=== PATIENT | male | born 1950 | race Caucasian/White ===

== ENCOUNTER → 2016-05-10 | Outpatient (CLI) | payer OTHER ==
[~2016-05-10] MED LIST: ANT25 PO; ASPEC325 PO; ASPI1TAB83 PO; ATOR-22 PO; GLC/500 PO; HYDR25TA5 PO; LOSA50TA6 PO; LPR25 PO; METFTAB PO; METO-596 PO; MGNO400 PO; MULTTAB45 PO; NAPR-1169 PO; NRV5 PO; NVLNI SC; NVLNI SQ; NVLRPUC SC; Nyquil; PHEN-905 PO; PLV75 PO; SENN8.6T7 PO
--- NOTE | 2016-05-10 11:16 | DIAGNOSTIC IMAGING REPORT ---
ULTRASOUND ART DOP LOWER EXT BILAT CLINICAL HISTORY: B/L LEG NON HEALING ULCER ischemia. Claudication. COMPARISON STUDY: None FINDINGS: Real-time as well as Doppler evaluation of the arterial structures of the lower legs was performed. Waveforms are triphasic throughout. Velocity characteristics are unremarkable. Arterial structures demonstrate unremarkable biphasic and triphasic waveforms. The following blood pressure indices were obtained. On the right, posterior tibial is 1.03 and dorsalis pedis is 1.08. On the left, posterior tibial is 1.09 and dorsalis pedis is 1.02. IMPRESSION: Normal study. No significant stenosis Electronically signed by: Joe Arellano M.D. 05/10/2016 11:15 AM Dictated Date/Time: 05/10/2016 11:13 AM
== END | disposition home or self-care (01) ==
LOC: C.ULTR 09:26
PROVIDERS: ATTEND Podiatrist Primary Podiatric Medicine
DX: L97.909 Non-pressure chronic ulcer of unspecified part of unspecified lower leg with unspecified severity (principal)

== ENCOUNTER 2016-05-21 06:56 | Inpatient (IN) | payer OTHER ==
[~2016-05-21] VITALS: Ht 175.3 cm; Wt 137.7 kg
[~2016-05-21 06:56] MED LIST changes: -ASPI1TAB83 PO; -HYDR25TA5 PO; -METFTAB PO; -METO-596 PO; -MGNO400 PO; -NRV5 PO; -NVLNI SQ; -PHEN-905 PO; -SENN8.6T7 PO
[2016-05-21] MEDS ORDERED: SODIUM CHLORIDE 0.9% 1000ML 1,000 ML IV STA (07:41)
[2016-05-21] MEDS ORDERED: SODIUM CHLORIDE 0.9% 1000ML 1,000 ML IV ONE (07:41)
[2016-05-21] MEDS ORDERED: ONDANSETRON INJ 2 MG/ML 2 ML VIAL IV STA (07:43)
--- NOTE | 2016-05-21 07:57 | EMERGENCY ROOM VISIT NOTE ---
History Report prepared by Amy: Maggi Sanchez Under the Supervision of: Dr. Sandeep Marcus M.D. First contact with patient: 07:18 Chief Complaint: VOMITING Stated Complaint: VOMITING Nursing Triage Summary: Started vomiting on Tuesday at approximately 1700 after being at his physician. Yesterday he relates that he "Laid around". Ate toast, mandarin oranges, small snack cake, half a piece of bread with peanut butter. BSG 147 this AM. Relates in the middle of the night he vomited. Denies diarrhea. Constipated on Tuesday and was able to have an adequate bm. Today he feels "bloated, crampy and pain in the lower right back" He thinks that if he had a good bowel movement he could feel better. History of Present Illness The patient is a 65 year old male who presents to the Emergency Room with complaints of persistent periumbilical abdominal pain that began Tuesday. He currently rates his discomfort as an 8/10 in severity, describing his discomfort as a cramping feeling. The patient states that he vomited on Tuesday and since then he has been feeling bloated and crampy. He states that he had a normal bowel movement on Tuesday, but states that since then he has been without a bowel movement, but denies any urge to have one. The patient states that he typically has bowel movements every morning. He additionally notes nausea. The patient states that vomiting has been alleviating his abdominal discomfort. He states that he vomited again last evening. The patient notes lower right back pain that he describes an achy pain. He states that he has experienced this discomfort in the past. The patient states that he has taken Ibuprofen with slight relief of his symptoms. He notes a history of hypertension, Type 2 diabetes, and neuropathy. The patient denies any history of abdominal surgeries. He denies any fever, chills , dysuria, increased numbness or weakness, groin pain or swelling, hematochezia , or melena. The patient notes a strong family history of aneurysms, but denies any personal history of aneurysms. Source of History: patient Onset: Tuesday Position: abdomen Symptom Intensity: 8/10 Quality: cramping Timing: other (persistent) Associated Symptoms: + back pain, + nausea, + vomiting, No chills, No fevers , No hematochezia, No melena, No numbness, No urinary symptoms, No weakness Note: Associated Symptoms: abdominal bloating, no bowel movement since Tuesday. Review of Systems See HPI for pertinent positives & negatives. A total of 10 systems reviewed and were otherwise negative. Past Medical & Surgical Medical Problems: (1) Acute renal failure (2) CKD (chronic kidney disease), stage III (3) HLD (hyperlipidemia) (4) HTN (hypertension) (5) Hypertensive urgency (6) IDDM (insulin dependent diabetes mellitus) (7) Obesity Surgical Problems: (1) H/O knee surgery (2) History of tonsillectomy (3) S/P surgical manipulation of ankle joint Old medical records were reviewed. Nurse's notes were reviewed and I agree with. Family History Diabetes mellitus Social History Smoking Status: Never Smoker Alcohol Use: none Drug Use: none Marital Status: single Housing Status: lives with roommate Occupation Status: retired Current/Historical Medications Scheduled Aspirin (Aspirin), 1 TAB PO DAILY Atorvastatin (Lipitor), 20 MG PO HS Hydrochlorothiazide (Hydrochlorothiazide), 12.5 MG PO DAILY Insulin Human NPH (Novolin N), 32 UNITS SQ BID Insulin Human Regular (Novolin R), 38 UNITS SC AC Losartan Potassium (Cozaar), 100 MG PO DAILY Metformin Ext Rel (Glucophage Ext Rel), 500 MG PO TID Metoprolol Tartrate (Lopressor), 1 TAB PO BID Multiple Vitamin (Multiple Vitamin), 1 TAB PO DAILY Scheduled PRN Xjrwfvzapfnho-Bjpahbwdnk-Kozvx (Nyquil Severe Cold/Flu 5-6.25-10-325 mg/15Ml), 15 ML PO UD PRN for cold Allergies Coded Allergies: No Known Allergies (Unverified , 10/25/13) Physical Exam Vital Signs Date Time Temp Pulse Resp B/P Pulse Ox O2 Delivery O2 Flow Rate FiO2 05/21/16 10:12 66 20 198/106 96 Room Air 05/21/16 09:38 88 Nasal Cannula 2.0 05/21/16 09:36 96 Room Air 05/21/16 09:31 66 20 184/101 94 Room Air 05/21/16 08:33 66 20 187/96 96 Room Air 05/21/16 07:05 36.9 63 18 210/94 96 Room Air Physical Exam General: Well developed well nourished non-ill appearing, obese, middle aged male in no acute distress, breathing comfortably on room air. Normal speech HEENT: Normal cephalic atraumatic. Pupils are equal round and reactive to light. Sceara anicteric. Extraocular movements are intact. Oropharynx is pink with moist mucous membranes. No swelling of the mouth lips or tongue. Neck: Supple with a midline trachea. No meningeal signs or stiffness, no JVD or bruits. No Stridor. Chest: Clear to auscultation bilaterally. No wheezes or rhonchi. No increased work of breathing. Heart: regular rate and rhythm. Abdomen: Mildly diffusely tender in the lower abdomen. No peritonitis or masses. Extremities: Bandage from right lower extremity wound. No cyanosis clubbing or edema. No calf tenderness or assymetry Spine/Back. Non tender to palpation. No CVA tenderness Skin: Good turgor without rashes. Neurologic exam: Cranial nerves two through 12 are intact. Motor and sensation are intact and symmetrical throughout. Medical Decision & Procedures ER Provider Diagnostic Interpretation: CT results as stated below per my review and radiologist interpretation: CT OF THE ABDOMEN AND PELVIS WITHOUT CONTRAST, STONE PROTOCOL CLINICAL HISTORY: Right-sided abdominal pain, vomiting and constipation. COMPARISON STUDY: None. TECHNIQUE: Helical axial images of the abdomen and pelvis were obtained without IV or oral contrast according to renal stone protocol. FINDINGS: Lung bases are clear. There is mild right perinephric and periureteral ureteral infiltration with mild dilatation of the right collecting system and ureter. No right ureteral calculus is present. There is a 4 mm calculus within the lower pole of the right kidney. There are multiple bilateral renal lesions. These are suboptimally assessed on this unenhanced exam but measure water attenuation likely reflect cysts. Unenhanced images of the liver, spleen, adrenal glands and pancreas are normal. There is no evidence for a bowel obstruction. There is left colon diverticulosis without evidence for acute diverticulitis. The appendix is normal. Skeletal structures are unremarkable for age. There is no lymphadenopathy. IMPRESSION: 1. Mild dilatation of the right ureter and collecting system with mild perinephric and ureteral infiltration. The findings raise the possibility of a recently passed calculus. An infectious process could appear similar and this could be correlated with urinalysis. 2. 4 mm right renal calculus. 3. Several bilateral renal lesions which are suboptimally assessed on this unenhanced exam. However, these measure water attenuation and likely reflect cysts. Electronically signed by: Andrew Mccollum M.D. 05/21/2016 9:11 AM Dictated Date/Time: 05/21/2016 8:58 AM Laboratory Results 05/21/16 07:55 Red Blood Count 4.33, Mean Corpuscular Volume 85.9, Mean Corpuscular Hemoglobin 30.3, Mean Corpuscular Hemoglobin Concent 35.2, Mean Platelet Volume 10.1, Neutrophils (%) (Auto) 81.3, Lymphocytes (%) (Auto) 9.9, Monocytes (%) (Auto) 7.5, Eosinophils (%) (Auto) 0.8, Basophils (%) (Auto) 0.2, Neutrophils # (Auto) 8.50, Lymphocytes # (Auto) 1.03, Monocytes # (Auto) 0.78, Eosinophils # (Auto) 0.08, Basophils # (Auto) 0.02 05/21/16 07:55 Test 05/21/16 07:55 White Blood Count 10.44 K/uL (4.8-10.8) Red Blood Count 4.33 M/uL (4.7-6.1) Hemoglobin 13.1 g/dL (14.0-18.0) Hematocrit 37.2 % (42-52) Mean Corpuscular Volume 85.9 fL (80-100) Mean Corpuscular Hemoglobin 30.3 pg (25-34) Mean Corpuscular Hemoglobin Concent 35.2 g/dl (32-36) Platelet Count 200 K/uL (130-400) Mean Platelet Volume 10.1 fL (7.4-10.4) Neutrophils (%) (Auto) 81.3 % Lymphocytes (%) (Auto) 9.9 % Monocytes (%) (Auto) 7.5 % Eosinophils (%) (Auto) 0.8 % Basophils (%) (Auto) 0.2 % Neutrophils # (Auto) 8.50 K/uL (1.4-6.5) Lymphocytes # (Auto) 1.03 K/uL (1.2-3.4) Monocytes # (Auto) 0.78 K/uL (0.11-0.59) Eosinophils # (Auto) 0.08 K/uL (0-0.5) Basophils # (Auto) 0.02 K/uL (0-0.2) RDW Standard Deviation 41.8 fL (36.4-46.3) RDW Coefficient of Variation 13.3 % (11.5-14.5) Immature Granulocyte % (Auto) 0.3 % Immature Granulocyte # (Auto) 0.03 K/uL (0.00-0.02) Prothrombin Time 10.7 SECONDS (9.0-12.0) Prothromb Time International Ratio 1.0 (0.9-1.1) Anion Gap 11.0 mmol/L (3-11) Est Creatinine Clear Calc Drug Dose 33.7 ml/min Estimated GFR () 24.1 Estimated GFR (Non- 20.8 BUN/Creatinine Ratio 14.3 (10-20) Calcium Level 9.3 mg/dl (8.5-10.1) Total Bilirubin 0.6 mg/dl (0.2-1) Direct Bilirubin 0.1 mg/dl (0-0.2) Aspartate Amino Transf (AST/SGOT) 17 U/L (15-37) Alanine Aminotransferase (ALT/SGPT) 27 U/L (12-78) Alkaline Phosphatase 116 U/L (45-117) Troponin I < 0.015 ng/ml (0-0.045) Total Protein 8.2 gm/dl (6.4-8.2) Albumin 3.5 gm/dl (3.4-5.0) Amylase Level 97 U/L (25-115) Lipase 501 U/L (73-393) Thyroid Stimulating Hormone (TSH) 2.980 uIu/ml (0.300-4.500) Laboratory studies as stated above per my review. Medications Administered Medications (Trade) Dose Ordered Sig/Ghazala Route Start Time Stop Time Status Last Admin Dose Admin Sodium Chloride (Nss 1000ml) 1,000 ml @ 999 mls/hr Q1H1M STAT IV 05/21/16 07:41 05/21/16 08:41 DC 05/21/16 08:07 999 MLS/HR Ondansetron HCl (Zofran Inj) 4 mg NOW STAT IV 05/21/16 07:43 05/21/16 07:44 DC 05/21/16 08:07 4 MG Morphine Sulfate (MoRPHine SULFATE INJ) 4 mg NOW STAT IV 05/21/16 09:12 05/21/16 09:13 DC 05/21/16 09:12 4 MG Ciprofloxacin/ Dextrose (Cipro / D5w) 400 mg NOW STAT IV 05/21/16 09:21 05/21/16 09:22 DC 05/21/16 10:30 400 MG ED Course 0721: Past medical records reviewed. The patient was evaluated in room B10, and a complete history and physical examination were performed by the medical student. 0735: Past medical records reviewed. The patient was evaluated in room B10, and a complete history and physical examination were performed. 0741: Ordered Sodium Chloride 1000 ml @ 150 mls/hr IV, Sodium Chloride 1000 ml @ 999 mls/hr IV. 0743: Ordered Zofran Inj 4 mg IV. 0912: I reevaluated the patient and he is complaining of pain. I discussed the exam findings with him and I discussed the treatment plan. He verbalized complete understanding and agreement. He will be evaluated for further treatment. Ordered Morphine sulfate 4 mg IV. 0919: I discussed the patients case with Keenan Saab PA-C. She is going to evaluate the patient for further treatment. Medical Decision Differentials include, but are not limited to; constipation, bowel obstruction, appendicitis, AAA, kidney stone, diverticulitis, infection. This patient comes in as described above. He was placed in room B 10. He's been having abdominal pain mostly lower more so on the right side. He's had a couple episodes of vomiting over the last day or so. His abdomen is mildly tender but no peritonitis. He has no significant flank tenderness. IV access was established and she was hydrated with IV normal saline. He was found to have an elevated BUN and creatinine. Creatinine is 3. The last value have here from several years ago is 1.3. I'm worried about his renal insufficiency here, it may be related to some of the meds that he is on there could be a prerenal or post renal component as well. I did a CAT scan is no evidence of bowel obstruction. He does have this possible hydronephrosis of the right kidney but no definite stone seen. It could be a passed kidney stone versus infection. Urinalysis was obtained and cultured. I did cover him with IV antibiotics and fluids and he was given morphine 4 mg IV and Zofran 4 mg IV. Given his renal insufficiency/failure as well as abdominal pain, I do think he needs to be admitted for further treatment and evaluation some this may be constipation as well. He has no surgical abdomen at this point. I did consult the [facility] Hospitalist who saw him in the ER and will admit him for these measures. Consults Time Called: 916 Consulting Physician: Keenan Saab PA-C Returned Call: [phone] I discussed the patients case with Keenan Saab PA-C. She is going to evaluate the patient for further treatment. Impression Primary Impression: Right sided abdominal pain Additional Impressions: Nephrolithiasis UTI (urinary tract infection) Renal failure Scribe Attestation The scribe's documentation has been prepared under my direction and personally reviewed by me in its entirety. I confirm that the note above accurately reflects all work, treatment, procedures, and medical decision making performed by me. Departure Information Dispostion Being Evaluated By Hospitalist Referrals Vin Dasilva M.D. (PCP) Problem Qualifiers
[2016-05-21 08:19] LABS: BASO % 0.2 %; BASO ABS # 0.02 K/uL (0-0.2); COMPLETE YES; EOS % 0.8 %; HEMATOCRIT 37.2 % (42-52); IG% 0.3 %; LYMPH % 9.9 %; LYMPH ABS # 1.03 K/uL (1.2-3.4); MEAN CELL VOLUME 85.9 fL (80-100); MEAN CORPUSCULAR HEMOGLOBIN 30.3 pg (25-34); MEAN CORPUSCULAR HGB CONC 35.2 g/dl (32-36); MEAN PLATELET VOLUME 10.1 fL (7.4-10.4); MONO % 7.5 %; NEUT % 81.3 %; PLATELET COUNT 200 K/uL (130-400); RED BLOOD COUNT 4.33 M/uL (4.7-6.1); WHITE BLOOD COUNT 10.44 K/uL (4.8-10.8)
[2016-05-21 08:44] LABS: BUN/CREATININE RATIO 14.3 (10-20); CALCIUM 9.3 mg/dl (8.5-10.1); POTASSIUM 4.7 mmol/L (3.5-5.1)
[2016-05-21] MEDS ORDERED: HYDR25TA5 PO (09:00)
[2016-05-21] MEDS ORDERED: NVLNI SQ (09:01)
[2016-05-21] MEDS ORDERED: METFTAB PO (09:02)
[2016-05-21] MEDS ORDERED: PHEN-905 PO (09:03)
[2016-05-21] MEDS ORDERED: MoRPHine SULFATE 4 MG/ML 1 ML CARP\\VIAL IV STA (09:12)
--- NOTE | 2016-05-21 09:12 | DIAGNOSTIC IMAGING REPORT ---
CT OF THE ABDOMEN AND PELVIS WITHOUT CONTRAST, STONE PROTOCOL CLINICAL HISTORY: Right-sided abdominal pain, vomiting and constipation. COMPARISON STUDY: None. TECHNIQUE: Helical axial images of the abdomen and pelvis were obtained without IV or oral contrast according to renal stone protocol. FINDINGS: Lung bases are clear. There is mild right perinephric and periureteral ureteral infiltration with mild dilatation of the right collecting system and ureter. No right ureteral calculus is present. There is a 4 mm calculus within the lower pole of the right kidney. There are multiple bilateral renal lesions. These are suboptimally assessed on this unenhanced exam but measure water attenuation likely reflect cysts. Unenhanced images of the liver, spleen, adrenal glands and pancreas are normal. There is no evidence for a bowel obstruction. There is left colon diverticulosis without evidence for acute diverticulitis. The appendix is normal. Skeletal structures are unremarkable for age. There is no lymphadenopathy. IMPRESSION: 1. Mild dilatation of the right ureter and collecting system with mild perinephric and ureteral infiltration. The findings raise the possibility of a recently passed calculus. An infectious process could appear similar and this could be correlated with urinalysis. 2. 4 mm right renal calculus. 3. Several bilateral renal lesions which are suboptimally assessed on this unenhanced exam. However, these measure water attenuation and likely reflect cysts. Electronically signed by: Andrew Mccollum M.D. 05/21/2016 9:11 AM Dictated Date/Time: 05/21/2016 8:58 AM
[2016-05-21] MEDS ORDERED: CIPROFLOXACIN 400MG / 200ML D5W IV STA (09:21)
[2016-05-21] MEDS ORDERED: ASPI1TAB83 PO (09:55)
[2016-05-21] MEDS ORDERED: METO-596 PO (09:55)
[2016-05-21] MEDS ORDERED: METOPROLOL TARTRATE 100 MG TAB PO ONE (09:57)
[2016-05-21 10:07] LABS: AMYLASE 97 U/L (25-115)
[2016-05-21] MEDS ORDERED: ONDANSETRON INJ 2 MG/ML 2 ML VIAL IV PRN (10:15)
[2016-05-21] MEDS ORDERED: DOCUSATE SODIUM/SENNA 50/8.6MG TAB PO ONE (10:15)
[2016-05-21] MEDS ORDERED: ACETAMINOPHEN 325 MG TAB PO PRN (10:15)
[2016-05-21] MEDS ORDERED: POLYETHYLENE (MIRALAX) 17 GM PACK PO PRN (10:15)
[2016-05-21] MEDS ORDERED: BISACODYL 10 MG SUPP PR PRN (10:15)
[2016-05-21] MEDS ORDERED: CLONIDINE HCL 0.1 MG TAB PO PRN (10:15)
[2016-05-21] MEDS ORDERED: GLUCOSE 40% GEL 15 GM TUBE PO PRN (10:30)
[2016-05-21] MEDS ORDERED: GLUCAGON FOR INJ 1 MG VIAL SQ PRN (10:30)
[2016-05-21] MEDS ORDERED: GLUCOSE 10 TABS/TUBE PO PRN (10:30)
[2016-05-21] MEDS ORDERED: DEXTROSE 50% 50 ML SYR IV PRN (10:30)
--- NOTE | 2016-05-21 10:30 | History and Physical ---
History & Physical Date & Time of Service: May 21, 2016 at 10:02 Chief Complaint: Vomiting Primary Care Physician: Vin Dasilva M.D. History of Present Illness Source: patient, clinic records, hospital records Patient seen and examined. 65 year old male with PMHx of IDDM, HTN, CKD stage 3 , HLD presents to the ED complaining of abdominal pain x 2 days. Patient states the pain is mostly in the lower abdomen, he describes it as crampy and rates it as a 9/10. He reports associated vomiting which makes him feel a little bit better for a short time. He reports he has been having some constipation but did have a hard BM about 30 hours ago. He reports he has been taking stool softeners and 400mg ibuprofen with minimal relief. He reports he feels bloated. He denies fevers, chills, URI symptoms, chest pain, SOB, dysuria, diarrhea, calf pain and edema. He denies sick contacts, new or unusual foods. He denies history of kidney stones. He reports he has not taken his medications in a few days. In the ED patient's BP is elevated, Crea is 3 from 2 a month ago, lipase is 500, CT A/P shows right ureteral dilation with perinephric infiltration ? infection versus recent stone passage. UA does not show signs of infection. He received Zofran, morphine, IVFs, and Cipro. He is resting comfortably. He will be admitted for further workup and treatment. Past Medical/Surgical History Medical Problems: (1) CKD (chronic kidney disease), stage III Status: Chronic (2) HLD (hyperlipidemia) Status: Chronic (3) HTN (hypertension) Status: Chronic (4) IDDM (insulin dependent diabetes mellitus) Status: Chronic (5) Obesity Status: Chronic Surgical Problems: (1) H/O knee surgery Status: Chronic (2) History of tonsillectomy Status: Chronic (3) S/P surgical manipulation of ankle joint Status: Chronic Family History Diabetes mellitus FH: heart disease Hypertension Social History Smoking Status: Never Smoker Alcohol Use: none Drug Use: none Marital Status: single Occupational Status: retired Multi-Drug Resistant Organisms History of MDRO: No Allergies Coded Allergies: No Known Allergies (Unverified , 10/25/13) Home Medications Scheduled Aspirin (Aspirin), 1 TAB PO DAILY Atorvastatin (Lipitor), 20 MG PO HS Hydrochlorothiazide (Hydrochlorothiazide), 12.5 MG PO DAILY Insulin Human NPH (Novolin N), 32 UNITS SQ BID Insulin Human Regular (Novolin R), 38 UNITS SC AC Losartan Potassium (Cozaar), 100 MG PO DAILY Metformin Ext Rel (Glucophage Ext Rel), 500 MG PO TID Metoprolol Tartrate (Lopressor), 1 TAB PO BID Multiple Vitamin (Multiple Vitamin), 1 TAB PO DAILY Scheduled PRN Ukmcuipttbfwu-Xwrhzmhlke-Yyjbi (Nyquil Severe Cold/Flu 5-6.25-10-325 mg/15Ml), 15 ML PO UD PRN for cold Review of Systems See above for pertinent positives & negatives. A total of 10 systems reviewed and were otherwise negative. Physical Exam Vital Signs Date Time Temp Pulse Resp B/P Pulse Ox O2 Delivery O2 Flow Rate FiO2 05/21/16 09:38 88 Nasal Cannula 2.0 05/21/16 09:36 96 Room Air 05/21/16 09:31 66 20 184/101 94 Room Air 05/21/16 08:33 66 20 187/96 96 Room Air 05/21/16 07:05 36.9 63 18 210/94 96 Room Air General Appearance: + pertinent finding (WD/WN 65 year old male lying in bed in NAD ) Head: normocephalic, atraumatic Eyes: PERRL, EOMI, sclerae normal ENT: hearing grossly normal, pharynx normal Neck: supple, no JVD Respiratory/Chest: chest non-tender, lungs clear, normal breath sounds, no respiratory distress, no accessory muscle use Cardiovascular: regular rate, rhythm, no edema, no gallop, no JVD, no murmur, normal peripheral pulses Abdomen/GI: normal bowel sounds, non tender, soft Back: normal inspection, no CVA tenderness, no muscle spasm Extremities/Musculoskelatal: no calf tenderness, normal capillary refill, no pedal edema, + pertinent finding (right medial aspect of first toe with diabetic ulcer, no signs of infection ) Neurologic/Psych: alert, oriented x 3, + pertinent finding (no motor or sensory deficist noted on gross exam ) Skin: normal color, warm/dry, no rash Lymphatic: no adenopathy Diagnostics Laboratory Results Results Past 24 Hours Test 05/21/16 07:55 Range/Units White Blood Count 10.44 4.8-10.8 K/uL Red Blood Count 4.33 4.7-6.1 M/uL Hemoglobin 13.1 14.0-18.0 g/dL Hematocrit 37.2 42-52 % Mean Corpuscular Volume 85.9 80-100 fL Mean Corpuscular Hemoglobin 30.3 25-34 pg Mean Corpuscular Hemoglobin Concent 35.2 32-36 g/dl Platelet Count 200 130-400 K/uL Mean Platelet Volume 10.1 7.4-10.4 fL Neutrophils (%) (Auto) 81.3 % Lymphocytes (%) (Auto) 9.9 % Monocytes (%) (Auto) 7.5 % Eosinophils (%) (Auto) 0.8 % Basophils (%) (Auto) 0.2 % Neutrophils # (Auto) 8.50 1.4-6.5 K/uL Lymphocytes # (Auto) 1.03 1.2-3.4 K/uL Monocytes # (Auto) 0.78 0.11-0.59 K/uL Eosinophils # (Auto) 0.08 0-0.5 K/uL Basophils # (Auto) 0.02 0-0.2 K/uL RDW Standard Deviation 41.8 36.4-46.3 fL RDW Coefficient of Variation 13.3 11.5-14.5 % Immature Granulocyte % (Auto) 0.3 % Immature Granulocyte # (Auto) 0.03 0.00-0.02 K/uL Sodium Level 137 136-145 mmol/L Potassium Level 4.7 3.5-5.1 mmol/L Chloride Level 102 98-107 mmol/L Carbon Dioxide Level 24 21-32 mmol/L Anion Gap 11.0 3-11 mmol/L Blood Urea Nitrogen 43 7-18 mg/dl Creatinine 3.00 0.60-1.40 mg/dl Est Creatinine Clear Calc Drug Dose 33.7 ml/min Estimated GFR () 24.1 Estimated GFR (Non- 20.8 BUN/Creatinine Ratio 14.3 10-20 Random Glucose 187 70-99 mg/dl Calcium Level 9.3 8.5-10.1 mg/dl Total Bilirubin 0.6 0.2-1 mg/dl Direct Bilirubin 0.1 0-0.2 mg/dl Aspartate Amino Transf (AST/SGOT) 17 15-37 U/L Alanine Aminotransferase (ALT/SGPT) 27 12-78 U/L Alkaline Phosphatase 116 45-117 U/L Total Protein 8.2 6.4-8.2 gm/dl Albumin 3.5 3.4-5.0 gm/dl Lipase 501 73-393 U/L Microbiology Results 05/21/16 Blood Culture, Collin Batch Pending 05/21/16 Blood Culture, Collin Batch Pending 05/21/16 Urine Culture, Received Pending Diagnostic Radiology CT A/P Per radiologist read: IMPRESSION: 1. Mild dilatation of the right ureter and collecting system with mild perinephric and ureteral infiltration. The findings raise the possibility of a recently passed calculus. An infectious process could appear similar and this could be correlated with urinalysis. 2. 4 mm right renal calculus. 3. Several bilateral renal lesions which are suboptimally assessed on this unenhanced exam. However, these measure water attenuation and likely reflect cysts. Impression Assessment and Plan 65 year old male presents to the ED complaining of abdominal pain, nausea, vomiting, constipation x 2 days ACUTE RENAL FAILURE ON CKD STAGE 3 -admit to tele -CT A/P shows right ureteral dilation with perinephric infiltration, 4mm renal stone -UA without infection -Has been taking some ibuprofen -Crea 3 from baseline of 2 -? prerenal from dehydration versus renal from NSAIDS/diuretics, versus postrenal possible stone passage -check urine studies -hold diuretics, no NSAIDs -IVF hydration -check urine studies -CBC, PRP, Mg daily ABDOMINAL PAIN/VOMITING/CONSTIPATION -CT A/P without obstruction -Lipase mildly elevated at 500 without epigastric abdominal pain -? constipation -Bowel regimen -IVFs -Zofran, morphine prn - [place] drug [place] reviewed -Clear liquid diet advance as tolerate -Trend lipase daily -Check TSH to r/o hypothyroidism induced constipation HYPERTENSIVE URGENCY -secondary to not taking his meds x 2 days -check EKG -troponin negative -give Lopressor 100mg po now then continue home BID dosing -Clonidine prn -hold losartan and HCTZ for GRIFFIN -monitor in tele DIABETIC FOOT ULCER right first toe -states he is to see ortho as an outpatient -wound culture pending -wound care nurse consult -no signs of infection IDDM -hold metformin -SSI coverage -BSG AC HS -consistent carb diet HLD -hold statin for GI upset DVT PROPHYLAXIS: Sq heparin CODE STATUS: FULL CODE per my discussion with the patient DISPO:In my clinical judgment this beneficiary meets acute admission criteria, established by [facility], that includes being hospitalized through two midnights. Patient seen in collaboration with Dr. Rogers ATTENDING ADDENDUM care coordinated with CAILIN Giles please refer to her notes for full details, I agree with her notes patient seen and examined, records reviewed by myself as well on exam, patient seen resting in bed states lower abdominal pain is improved with PRN pain medication no nausea, (+) flatus no chest pain, headache, dizziness, nausea no other symptoms VS noted and reviewed oriented x 3, not in distress, speaks in sentences with no effort nor accessory muscle use normal rate, regular rhythm, no murmurs clear breath sounds bilaterally non distended, normal bowel sounds, soft, mild lower quadrant tenderness no bipedal edema, erythema, warmth no neuro deficits K 4.7 crea 3.0 ASSESSMENT/PLAN> LOWER ABDOMINAL PAIN likely from constipation - bowel regimen ACUTE RENAL FAILURE ON CKD 3 likely pre-renal, concomitant NSAID use - IV fluids monitor crea HYPERTENSIVE URGENCY - improving other diagnoses and plan of care as per CAILIN Giles's notes John Rogers MD
[2016-05-21 11:36] LABS: PROTHROMBIN TIME (PATIENT) 10.7 SECONDS (9.0-12.0)
[2016-05-21] MEDS: MoRPHine SULFATE 2 MG/ML CARP IV PRN ×3 (11:59→18:08)
[2016-05-21 13:00] VITALS: BP_SYST 132; BP_SYST 137; BP_DIAS 74; BP_DIAS 90; PULSE 65; TEMP 36.5; O2SAT 96; Ht 175.3 cm; Wt 137.7 kg
[2016-05-21] MEDS: SODIUM CHLORIDE 0.9% 1000ML 1,000 ML IV SCH ×2 (13:19→20:15)
[2016-05-21] MEDS: INSULIN ASPART 100 UNITS/ML 3 ML PEN SC SCH ×3 (13:35→21:12)
[2016-05-21] MEDS: HEPARIN SOD 5000 UNIT/0.5 ML CARP SQ SCH ×2 (13:35→21:11)
[2016-05-21 14:55] LABS: URINE APPEARANCE CLEAR (CLEAR); URINE BILIRUBIN NEG (NEG); URINE COLOR YELLOW; URINE NITRITE NEG (NEG); URINE SPECIFIC GRAVITY 1.019 (1.000-1.030); UROBILINOGEN NEG (NEG)
[2016-05-21 14:57] LABS: MANUAL MICROSCOPIC REQUIRED? NO; REVIEW REQ? NO
[2016-05-21 15:11] VITALS: BP 127/73; PULSE 70; TEMP 36.3; O2SAT 93
[2016-05-21] MEDS: METOPROLOL TARTRATE 100 MG TAB PO SCH (17:16)
[2016-05-21] MEDS ORDERED: LACTULOSE SYRUP 30 GM/45 ML UDP PO PRN (19:00)
[2016-05-21] MEDS ORDERED: LACTULOSE SYRUP 20 GM/30 ML UDC PO PRN (19:00)
[2016-05-21] MEDS ORDERED: LACTULOSE SYRUP 30 GM/45 ML UDP PO SCH (19:00)
[2016-05-21 19:36] VITALS: BP 165/84; PULSE 72; TEMP 36.5; O2SAT 95
[2016-05-21] MEDS ORDERED: METOPROLOL TARTRATE 100 MG TAB PO SCH (21:00)
[2016-05-21] MEDS ORDERED: MoRPHine SULFATE 2 MG/ML CARP ONE (21:08)
[2016-05-21] MEDS ORDERED: TRAMADOL HCL 50 MG TAB PO PRN (21:15)
[2016-05-21] MEDS ORDERED: HYDROmorphone INJ 0.5 MG/0.5 ML SYR IV PRN (21:15)
[2016-05-21] MEDS ORDERED: OXYCODONE/ACETAMINOPHEN 5-325 TAB PO PRN (21:15)
[2016-05-21 23:17] VITALS: BP 112/70; PULSE 58; TEMP 36.7; O2SAT 92
[2016-05-22] VITALS (7 sets, daily range): BP systolic 111–153; BP diastolic 66–79; PULSE 61–80; TEMP 36.6–36.9; O2SAT 91–96
[2016-05-22] MEDS: SODIUM CHLORIDE 0.9% 1000ML 1,000 ML IV SCH ×2 (00:45→10:34)
[2016-05-22 06:43] LABS: HEMATOCRIT 30.7 % (42-52); MEAN CORPUSCULAR HEMOGLOBIN 29.1 pg (25-34); MEAN CORPUSCULAR HGB CONC 33.9 g/dl (32-36); MEAN PLATELET VOLUME 9.5 fL (7.4-10.4); PLATELET COUNT 158 K/uL (130-400); RED BLOOD COUNT 3.57 M/uL (4.7-6.1); WHITE BLOOD COUNT 6.74 K/uL (4.8-10.8)
[2016-05-22] MEDS: HEPARIN SOD 5000 UNIT/0.5 ML CARP SQ SCH ×3 (06:49→21:36)
[2016-05-22 07:15] LABS: BUN/CREATININE RATIO 15.8 (10-20); CALCIUM 8.3 mg/dl (8.5-10.1); MAGNESIUM 1.7 mg/dl (1.8-2.4)
[2016-05-22] MEDS: METOPROLOL TARTRATE 100 MG TAB PO SCH ×2 (07:58→17:57)
[2016-05-22] MEDS: ASPIRIN 81 MG ECTAB PO SCH (07:58)
[2016-05-22] MEDS: DOCUSATE SODIUM/SENNA 50/8.6MG TAB PO SCH ×2 (07:58→09:00)
[2016-05-22] MEDS: INSULIN ASPART 100 UNITS/ML 3 ML PEN SC SCH ×4 (08:00→21:37)
--- NOTE | 2016-05-22 09:24 | Progress Note ---
Medicine Progress Note Date & Time of Visit: May 22, 2016 at 09:18. Subjective resting in bed, comfortable (+) large BM last night, (+) flatus pain has resolved no urinary symptoms denies chest pain, dyspnea, dizziness, palpitations no other symptoms Objective Last 8 Hrs Date Time Temp Pulse Resp B/P Pulse Ox O2 Delivery O2 Flow Rate FiO2 05/22/16 07:50 36.6 80 20 145/72 96 Room Air 05/22/16 04:00 Room Air 05/22/16 03:35 36.8 61 18 111/66 91 Room Air Physical Exam: General- oriented x 3, not in distress, speaks in sentences with no effort Eyes- anicteric Neck- supple, no JVD, no adenopathy Lungs- clear to auscultation b/l Heart- normal rate, regular rhythm; no murmurs Abdomen- normal bowel sounds, non distended, soft, nontender Extremities- no pretibial edema, no calf tenderness Neuro- alert, oriented x 3; no gross focal deficits Skin- warm & dry Laboratory Results: Last 24 Hours Test 05/21/16 12:06 05/21/16 14:40 05/21/16 16:16 05/21/16 16:43 Bedside Glucose 215 mg/dl 195 mg/dl 170 mg/dl Urine Color YELLOW Urine Appearance CLEAR Urine pH 5.0 Urine Specific [place] 1.019 Urine Protein 3+ Urine Glucose (UA) 1+ Urine Ketones NEG Urine Occult Blood 2+ Urine Nitrite NEG Urine Bilirubin NEG Urine Urobilinogen NEG Urine Leukocyte Esterase NEG Urine WBC (Auto) 1-5 /hpf Urine RBC (Auto) 5-10 /hpf Urine Hyaline Casts (Auto) 1-5 /lpf Urine Epithelial Cells (Auto) 5-10 /lpf Urine Bacteria (Auto) NEG Urine Osmolality 576 mOms/kg Urine Random Creatinine 180.0 mg/dl Urine Random Sodium 60 mEq/L Test 05/21/16 20:36 05/22/16 06:27 05/22/16 06:30 Bedside Glucose 203 mg/dl 158 mg/dl White Blood Count 6.74 K/uL Red Blood Count 3.57 M/uL Hemoglobin 10.4 g/dL Hematocrit 30.7 % Mean Corpuscular Volume 86.0 fL Mean Corpuscular Hemoglobin 29.1 pg Mean Corpuscular Hemoglobin Concent 33.9 g/dl RDW Standard Deviation 42.2 fL RDW Coefficient of Variation 13.5 % Platelet Count 158 K/uL Mean Platelet Volume 9.5 fL Sodium Level 139 mmol/L Potassium Level 5.0 mmol/L Chloride Level 105 mmol/L Carbon Dioxide Level 24 mmol/L Anion Gap 10.0 mmol/L Blood Urea Nitrogen 47 mg/dl Creatinine 3.00 mg/dl Est Creatinine Clear Calc Drug Dose 33.9 ml/min Estimated GFR () 24.1 Estimated GFR (Non- 20.8 BUN/Creatinine Ratio 15.8 Random Glucose 168 mg/dl Calcium Level 8.3 mg/dl Magnesium Level 1.7 mg/dl Lipase 271 U/L Date/Time Source Procedure Growth Status 05/21/16 10:05 Blood Blood Culture Pending Received 05/21/16 10:00 Blood Blood Culture Pending Received 05/21/16 17:23 Ulcer Toe Right 1 Gram Stain - Final Resulted 2 17:23 Ulcer Toe Right 1 Wound Culture Pending Resulted Assessment & Plan 65 year old male presents to the ED complaining of abdominal pain, nausea, vomiting, constipation x 2 days ABDOMINAL PAIN/VOMITING secondary to CONSTIPATION -CT A/P without obstruction -Lipase mildly elevated at 500 without epigastric abdominal pain -- BM with Lactulose and Senokot S -- Lipase normal TSH normal -- advance diet today ACUTE RENAL FAILURE ON CKD STAGE 3 -CT A/P shows right ureteral dilation with perinephric infiltration, 4mm renal stone -Has been taking some ibuprofen -Crea 3 from baseline of 2 - prerenal from dehydration versus renal from NSAIDS/diuretics, versus postrenal possible stone passage -- crea still at 3 continue IV fluids consult Nephrology HYPERTENSIVE URGENCY , resolved -secondary to not taking his meds x 2 days -check EKG: sinus rhythm with 1st deg av block -troponin negative - continue metoprolol -hold losartan and HCTZ for GRIFFIN DIABETIC FOOT ULCER right first toe -wound culture pending -wound care nurse consult -no signs of infection - has ortho ff up IDDM -hold metformin -SSI coverage -BSG AC HS -consistent carb diet HLD -hold statin for GI upset DVT PROPHYLAXIS: Sq heparin CODE STATUS: FULL CODE DISPO: pending anticipate d/c home when medically stable Current Inpatient Medications: Current Inpatient Medications Medications (Trade) Dose Ordered Sig/Ghazala Route Start Time Stop Time Status Last Admin Dose Admin Heparin Sodium (Porcine) (Heparin Sq 5000 Unit/0.5ml) 5,000 unit Q8 SQ 05/21/16 14:00 06/20/16 13:59 05/22/16 06:49 5,000 UNIT Acetaminophen (Tylenol Tab) 650 mg Q4H PRN PO 05/21/16 10:15 06/20/16 10:14 05/21/16 20:23 650 MG Ondansetron HCl (Zofran Inj) 4 mg Q6H PRN IV 05/21/16 10:15 06/20/16 10:14 Polyethylene (Miralax Powder Packet) 17 gm DAILY PRN PO 05/21/16 10:15 06/20/16 10:14 Clonidine HCl (Catapres Tab) 0.1 mg Q6H PRN PO 05/21/16 10:15 06/20/16 10:14 Senna/Docusate Sodium (Senokot S Tab) 1 tab QAM PO 05/22/16 09:00 06/21/16 08:59 05/22/16 07:58 1 TAB Bisacodyl 10 mg [address] 05/21/16 10:15 06/20/16 10:14 Sodium Chloride (Nss 1000ml) 1,000 ml @ 100 mls/hr Q10H IV 05/21/16 10:30 06/20/16 10:29 05/22/16 00:45 100 MLS/HR Aspirin (Ecotrin Tab) 81 mg DAILY PO 05/22/16 09:00 06/21/16 08:59 05/22/16 07:58 81 MG Insulin Aspart (novoLOG ASPART) SLIDING SCALE If C... ACHS SC 05/21/16 11:00 06/20/16 10:59 05/22/16 08:00 5 UNITS Glucose (Glucose 40% Gel) 15-30 GRAMS 15 GRAMS... UD PRN PO 05/21/16 10:30 06/20/16 10:29 Glucose (Glucose Chew Tab) 4-8 Tablets 4 Tabl... UD PRN PO 05/21/16 10:30 06/20/16 10:29 Dextrose (Dextrose 50% 50ML Syringe) 25-50ML OF 50% DW IV FOR... UD PRN IV 05/21/16 10:30 06/20/16 10:29 Glucagon (Glucagon Inj) 1 mg UD PRN SQ 05/21/16 10:30 06/20/16 10:29 Metoprolol Tartrate (Lopressor Tab) 100 mg BID17 PO 05/21/16 17:00 06/20/16 16:59 05/22/16 07:58 100 MG Lactulose (Chronulac Syrup) 30 gm TID PRN PO 05/21/16 19:00 06/20/16 18:59 Hydromorphone HCl (Dilaudid Inj) 0.5 mg Q3H PRN IV 05/21/16 21:15 06/04/16 21:14 Tramadol HCl (Ultram Tab) not relieved by tylenol @ Q6H PRN PO 05/21/16 21:15 06/20/16 21:14 Oxycodone/ Acetaminophen (Percocet 5-325mg Tab) 1 tab Q6H PRN PO 05/21/16 21:15 06/04/16 21:14
--- NOTE | 2016-05-22 19:03 | Nephrology Consultation ---
Nephrology Consultation Date of Consultation: May 22, 2016. Attending Physician: Dr Rogers Requesting Physician: Dr Rogers Reason for Consultation: GRIFFIN on CKD History of Present Illness 65 year old male w/ progressive ckd most recent creatinine 2.0, dm, obesity, htn , past TIA, R rotator cuff tear, psoriasis, HL remotely admitted w/ GRIFFIN on CKD3 on 05/21 after apparently passing a kidney stone recently. Denies prior hx of nephrolithiasis. He developed bilious emesis on 05/19 after his midday meal w/ marked constipation. He then ate a small amount and work again w/ increased abdominal discomfort and emesis. He took 2 doses of ibuprofen prior to presenting; generally takes this about 2X monthly for shoulder pain. He presented w/ emesis and abdominal pain to ED yesterday and noted to have creatinine of 3; no voiding sx whatsoever including no sx of retained urine. CT showed R ureteral dilatation and perinephric stranding but no stone. He takes hctz, arb, metformin as outpt; these were all held on presentation. Also had HTN urgency on presentation w/ bp 200/90; bp have since improved. Does not follow w/ nephro as outpt. Past Medical/Surgical History Medical Problems: (1) Nephrolithiasis Status: Acute (2) Renal failure Status: Acute (3) Right sided abdominal pain Status: Acute (4) UTI (urinary tract infection) Status: Acute Family History Diabetes mellitus FH: heart disease Hypertension Social History Smoking Status: Never Smoker Alcohol Use: none Drug Use: none Marital Status: single Housing Status: lives with roommate Occupation Status: retired Allergies Coded Allergies: No Known Allergies (Unverified , 10/25/13) Medications Current Inpatient Medications Medications (Trade) Dose Ordered Sig/Ghazala Route Start Time Stop Time Status Last Admin Dose Admin Heparin Sodium (Porcine) (Heparin Sq 5000 Unit/0.5ml) 5,000 unit Q8 SQ 05/21/16 14:00 06/20/16 13:59 05/22/16 13:28 5,000 UNIT Acetaminophen (Tylenol Tab) 650 mg Q4H PRN PO 05/21/16 10:15 06/20/16 10:14 05/21/16 20:23 650 MG Ondansetron HCl (Zofran Inj) 4 mg Q6H PRN IV 05/21/16 10:15 06/20/16 10:14 Polyethylene (Miralax Powder Packet) 17 gm DAILY PRN PO 05/21/16 10:15 06/20/16 10:14 Clonidine HCl (Catapres Tab) 0.1 mg Q6H PRN PO 05/21/16 10:15 06/20/16 10:14 Senna/Docusate Sodium (Senokot S Tab) 1 tab QAM PO 05/22/16 09:00 06/21/16 08:59 Bisacodyl 10 mg 10 mg DAILY PRN CA 05/21/16 10:15 06/20/16 10:14 Sodium Chloride (Nss 1000ml) 1,000 ml @ 100 mls/hr Q10H IV 05/21/16 10:30 06/20/16 10:29 05/22/16 10:34 100 MLS/HR Aspirin (Ecotrin Tab) 81 mg DAILY PO 05/22/16 09:00 06/21/16 08:59 05/22/16 07:58 81 MG Insulin Aspart (novoLOG ASPART) SLIDING SCALE If C... ACHS SC 05/21/16 11:00 06/20/16 10:59 05/22/16 18:00 5 UNITS Glucose (Glucose 40% Gel) 15-30 GRAMS 15 GRAMS... UD PRN PO 05/21/16 10:30 06/20/16 10:29 Glucose (Glucose Chew Tab) 4-8 Tablets 4 Tabl... UD PRN PO 05/21/16 10:30 06/20/16 10:29 Dextrose (Dextrose 50% 50ML Syringe) 25-50ML OF 50% DW IV FOR... UD PRN IV 05/21/16 10:30 06/20/16 10:29 Glucagon (Glucagon Inj) 1 mg UD PRN SQ 05/21/16 10:30 06/20/16 10:29 Metoprolol Tartrate (Lopressor Tab) 100 mg BID17 PO 05/21/16 17:00 06/20/16 16:59 05/22/16 17:57 100 MG Lactulose (Chronulac Syrup) 30 gm TID PRN PO 05/21/16 19:00 06/20/16 18:59 Hydromorphone HCl (Dilaudid Inj) 0.5 mg Q3H PRN IV 05/21/16 21:15 06/04/16 21:14 Tramadol HCl (Ultram Tab) not relieved by tylenol @ Q6H PRN PO 05/21/16 21:15 06/20/16 21:14 Oxycodone/ Acetaminophen (Percocet 5-325mg Tab) 1 tab Q6H PRN PO 05/21/16 21:15 06/04/16 21:14 Home Meds and Scripts Medications Dose Route/Sig Max Daily Dose Days Date Category Lopressor (Metoprolol Tartrate) 100 Mg Tab 1 Tab PO BID 30 05/21/16 Reported Aspirin 81 Mg Tab 1 Tab PO DAILY 30 05/21/16 Reported Nyquil Severe Cold/Flu 5-6.25-10-325 mg/15Ml (Uydtkiisfqimo-Qeeoqogwii-Nseik) 1 Liq Liq 15 Ml PO UD PRN 05/21/16 Reported Glucophage Ext Rel (Metformin HCl) 500 Mg Tab 500 Mg PO TID 05/21/16 Reported Novolin N (Insulin Human NPH) 100 Units/Ml Susp 32 Units SQ BID 05/21/16 Reported Hydrochlorothiazide 25 Mg Tab 12.5 Mg PO DAILY 05/21/16 Reported Multiple Vitamin 1 Tab Tab 1 Tab PO DAILY 10/25/13 Reported Lipitor (Atorvastatin Calcium) 20 Mg Tab 20 Mg PO HS 10/25/13 Reported Novolin R (Insulin Human Regular) 100 Units/1 Ml Inj 38 Units SC AC 10/25/13 Reported Cozaar (Losartan Potassium) 50 Mg Tab 100 Mg PO DAILY 10/25/13 Reported Review of Systems Constitutional: No fatigue, No fever, No weakness, No weight loss Eyes: No worsening of vision ENT: + tinnitus (chronic stable) Respiratory: No dyspnea at rest, No dyspnea on exertion, No shortness of breath Cardiac: No chest pain, No edema, No orthopnea Abdomen: + problem reported (pt states that at baseline he has chronic diarrhea attributed to metformin), + see HPI Musculoskeletal: No joint pain, No muscle pain Male : No dysuria, No hematuria Neuro: + balance problems (chronic stable from neuropathy), + numbness/tingling (chronic stable from neuropathy) Psych: No anxiety, No depression symptoms Heme: No abnormal bleeding/bruising Endo: No fatigue Skin: No itch, No rash Physical Exam Date Time Temp Pulse Resp B/P Pulse Ox O2 Delivery O2 Flow Rate FiO2 05/22/16 15:35 Room Air 05/22/16 15:14 36.9 66 18 131/74 92 Room Air 05/22/16 11:22 36.7 61 18 136/79 91 Nasal Cannula 05/22/16 10:05 36.6 80 20 96 05/22/16 08:00 Room Air 05/22/16 07:50 36.6 80 20 145/72 96 Room Air 05/22/16 04:00 Room Air 05/22/16 03:35 36.8 61 18 111/66 91 Room Air 05/22/16 00:00 Room Air 05/21/16 23:17 36.7 58 22 112/70 92 Room Air 05/21/16 20:00 Room Air 05/21/16 19:36 36.5 72 18 165/84 95 Room Air 24-Hour Column 05/22/16 07:59 Intake Total 3738 ml Balance 3738 ml Diagnostics Last 24 Hours Test 05/21/16 20:36 05/22/16 06:27 05/22/16 06:30 05/22/16 11:31 Bedside Glucose 203 mg/dl 158 mg/dl 183 mg/dl White Blood Count 6.74 K/uL Red Blood Count 3.57 M/uL Hemoglobin 10.4 g/dL Hematocrit 30.7 % Mean Corpuscular Volume 86.0 fL Mean Corpuscular Hemoglobin 29.1 pg Mean Corpuscular Hemoglobin Concent 33.9 g/dl RDW Standard Deviation 42.2 fL RDW Coefficient of Variation 13.5 % Platelet Count 158 K/uL Mean Platelet Volume 9.5 fL Sodium Level 139 mmol/L Potassium Level 5.0 mmol/L Chloride Level 105 mmol/L Carbon Dioxide Level 24 mmol/L Anion Gap 10.0 mmol/L Blood Urea Nitrogen 47 mg/dl Creatinine 3.00 mg/dl Est Creatinine Clear Calc Drug Dose 33.9 ml/min Estimated GFR () 24.1 Estimated GFR (Non- 20.8 BUN/Creatinine Ratio 15.8 Random Glucose 168 mg/dl Calcium Level 8.3 mg/dl Magnesium Level 1.7 mg/dl Lipase 271 U/L Test 05/22/16 16:19 Bedside Glucose 176 mg/dl Diagnostic Radiology: CT R ureteral dilatation/ perinephric stranding. Assessment & Plan 65 y/o M w/ dm, ckd 3, htn admitted w/ abd pain and griffin on ckd after apparently passing a kidney stone. HTN has improved/ normalized since presentation. Acute on chronic renal failure stage 3 not oliguric and no improvement so far but not worsening either and w/ acceptable chemistries; meds appropriately held. urine sediment remarkable for blood, protein, glucose. reasonable to continue straining urine. blood cultures are pending but at this point bacteremia in setting of no uti is unlikely -no uti -continue conservative management; no indication for dialysis -tolerating NS at 100 mL hourly and would continue provided normotensive and not dyspneic -advised him to aim for at least 80 oz daily water intake and to minimize sugary beverages -cont to hold ARB, diuretic, metformin and above all nsaids -advised to avoid all nsaids after d/c -daily bmp -strict I/O -needs to est after d/c w/ renal Appreciate consult; will follow with you.
[2016-05-23] MEDS: SODIUM CHLORIDE 0.9% 1000ML 1,000 ML IV SCH ×2 (01:19→12:48)
[2016-05-23] MEDS: HEPARIN SOD 5000 UNIT/0.5 ML CARP SQ SCH ×3 (06:00→21:22)
[2016-05-23 07:16] VITALS: BP 153/83; PULSE 66; TEMP 36.6; O2SAT 93
[2016-05-23 08:04] LABS: BASO % 0.7 %; BASO ABS # 0.03 K/uL (0-0.2); COMPLETE YES; EOS % 6.8 %; HEMATOCRIT 30.9 % (42-52); IG% 0.2 %; LYMPH % 36.1 %; LYMPH ABS # 1.65 K/uL (1.2-3.4); MEAN CELL VOLUME 86.6 fL (80-100); MEAN CORPUSCULAR HEMOGLOBIN 29.4 pg (25-34); MEAN PLATELET VOLUME 9.8 fL (7.4-10.4); MONO % 14.4 %; NEUT % 41.8 %; PLATELET COUNT 157 K/uL (130-400); RED BLOOD COUNT 3.57 M/uL (4.7-6.1); WHITE BLOOD COUNT 4.57 K/uL (4.8-10.8)
[2016-05-23 08:29] LABS: BUN/CREATININE RATIO 21.6 (10-20); CALCIUM 7.8 mg/dl (8.5-10.1); CREATININE 2.3 mg/dl (0.60-1.40); MAGNESIUM 1.7 mg/dl (1.8-2.4); POTASSIUM 4.3 mmol/L (3.5-5.1)
[2016-05-23] MEDS: INSULIN ASPART 100 UNITS/ML 3 ML PEN SC SCH ×4 (09:16→21:22)
[2016-05-23] MEDS: ASPIRIN 81 MG ECTAB PO SCH (09:19)
[2016-05-23] MEDS: METOPROLOL TARTRATE 100 MG TAB PO SCH ×2 (09:19→17:01)
[2016-05-23] MEDS: DOCUSATE SODIUM/SENNA 50/8.6MG TAB PO SCH ×2 (09:20→12:50)
[2016-05-23] MEDS ORDERED: COUGH DROP (SUGAR FREE) LOZ 24 LOZ/1 BOX ONE (09:48)
--- NOTE | 2016-05-23 11:47 | Nephrology Progress Note ---
Nephrology Progress Note Date of Service: May 23, 2016. Subjective up in chair/ no dyspnea, poor po, chest discomfort. voiding often and lots; bowels regulated to acceptable level for him Objective Date Time Temp Pulse Resp B/P Pulse Ox O2 Delivery O2 Flow Rate FiO2 05/23/16 07:16 36.6 66 20 153/83 93 Room Air 05/23/16 00:00 Room Air 05/22/16 23:26 36.7 65 18 153/79 93 Room Air 05/22/16 17:55 73 132/77 05/22/16 15:35 Room Air 05/22/16 15:14 36.9 66 18 131/74 92 Room Air Physical Exam: General-on ra up in chairnad Eyes-eomi ENT-mmm Neck-supple Lungs-diminished bu tclear Heart-rrr 2+ pedal edema Abdomen-soft NT + BS no lincoln Extremities-no c/c Neuro-madera, fluent speech Current Inpatient Medications Medications (Trade) Dose Ordered Sig/Ghazala Route Start Time Stop Time Status Last Admin Dose Admin Heparin Sodium (Porcine) (Heparin Sq 5000 Unit/0.5ml) 5,000 unit Q8 SQ 05/21/16 14:00 06/20/16 13:59 05/22/16 21:36 5,000 UNIT Acetaminophen (Tylenol Tab) 650 mg Q4H PRN PO 05/21/16 10:15 06/20/16 10:14 05/21/16 20:23 650 MG Ondansetron HCl (Zofran Inj) 4 mg Q6H PRN IV 05/21/16 10:15 06/20/16 10:14 Polyethylene (Miralax Powder Packet) 17 gm DAILY PRN PO 05/21/16 10:15 06/20/16 10:14 Clonidine HCl (Catapres Tab) 0.1 mg Q6H PRN PO 05/21/16 10:15 06/20/16 10:14 Senna/Docusate Sodium (Senokot S Tab) 1 tab QAM PO 05/22/16 09:00 06/21/16 08:59 Bisacodyl 10 mg 10 mg DAILY PRN [place] 05/21/16 10:15 06/20/16 10:14 Sodium Chloride (Nss 1000ml) 1,000 ml @ 100 mls/hr Q10H IV 05/21/16 10:30 06/20/16 10:29 05/23/16 01:19 100 MLS/HR Aspirin (Ecotrin Tab) 81 mg DAILY PO 05/22/16 09:00 06/21/16 08:59 05/23/16 09:19 81 MG Insulin Aspart (novoLOG ASPART) SLIDING SCALE If C... ACHS SC 05/21/16 11:00 06/20/16 10:59 05/23/16 09:16 5 UNITS Glucose (Glucose 40% Gel) 15-30 GRAMS 15 GRAMS... UD PRN PO 05/21/16 10:30 06/20/16 10:29 Glucose (Glucose Chew Tab) 4-8 Tablets 4 Tabl... UD PRN PO 05/21/16 10:30 06/20/16 10:29 Dextrose (Dextrose 50% 50ML Syringe) 25-50ML OF 50% DW IV FOR... UD PRN IV 05/21/16 10:30 06/20/16 10:29 Glucagon (Glucagon Inj) 1 mg UD PRN SQ 05/21/16 10:30 06/20/16 10:29 Metoprolol Tartrate (Lopressor Tab) 100 mg BID17 PO 05/21/16 17:00 06/20/16 16:59 05/23/16 09:19 100 MG Lactulose (Chronulac Syrup) 30 gm TID PRN PO 05/21/16 19:00 06/20/16 18:59 Hydromorphone HCl (Dilaudid Inj) 0.5 mg Q3H PRN IV 05/21/16 21:15 06/04/16 21:14 Tramadol HCl (Ultram Tab) not relieved by tylenol @ Q6H PRN PO 05/21/16 21:15 06/20/16 21:14 Oxycodone/ Acetaminophen (Percocet 5-325mg Tab) 1 tab Q6H PRN PO 05/21/16 21:15 06/04/16 21:14 Last 24 Hours Test 05/22/16 16:19 05/22/16 19:58 05/23/16 07:28 05/23/16 07:55 Bedside Glucose 176 mg/dl 163 mg/dl 150 mg/dl White Blood Count 4.57 K/uL Red Blood Count 3.57 M/uL Hemoglobin 10.5 g/dL Hematocrit 30.9 % Mean Corpuscular Volume 86.6 fL Mean Corpuscular Hemoglobin 29.4 pg Mean Corpuscular Hemoglobin Concent 34.0 g/dl Platelet Count 157 K/uL Mean Platelet Volume 9.8 fL Neutrophils (%) (Auto) 41.8 % Lymphocytes (%) (Auto) 36.1 % Monocytes (%) (Auto) 14.4 % Eosinophils (%) (Auto) 6.8 % Basophils (%) (Auto) 0.7 % Neutrophils # (Auto) 1.91 K/uL Lymphocytes # (Auto) 1.65 K/uL Monocytes # (Auto) 0.66 K/uL Eosinophils # (Auto) 0.31 K/uL Basophils # (Auto) 0.03 K/uL RDW Standard Deviation 42.5 fL RDW Coefficient of Variation 13.4 % Immature Granulocyte % (Auto) 0.2 % Immature Granulocyte # (Auto) 0.01 K/uL Sodium Level 139 mmol/L Potassium Level 4.3 mmol/L Chloride Level 107 mmol/L Carbon Dioxide Level 22 mmol/L Anion Gap 10.0 mmol/L Blood Urea Nitrogen 50 mg/dl Creatinine 2.30 mg/dl Est Creatinine Clear Calc Drug Dose 44.2 ml/min Estimated GFR () 33.3 Estimated GFR (Non- 28.7 BUN/Creatinine Ratio 21.6 Random Glucose 155 mg/dl Calcium Level 7.8 mg/dl Magnesium Level 1.7 mg/dl Assessment & Plan 65 y/o M w/ dm, ckd 3, htn admitted w/ abd pain and tom on ckd after apparently passing a kidney stone. HTN has improved/ normalized since presentation. Acute on chronic renal failure stage 3 w/ recent first episode of nephrolithiasis not oliguric and no improvement so far but not worsening either and w/ acceptable chemistries; meds appropriately held. urine sediment remarkable for blood, protein, glucose. reasonable to continue straining urine. blood cultures are pending but at this point bacteremia in setting of no uti is unlikely -no uti -continue conservative management; no indication for dialysis -tolerating NS at 100 mL hourly and would continue until this evening then lower -advised him to aim for at least 100 oz daily water intake and to minimize sugary beverages -cont to hold ARB, diuretic, metformin > could resume arb/ diuretic after seen by pcp after d/c and sure that renal function stable; could resume metformin at d/c if appropriate -advised to avoid all nsaids after d/c -daily bmp -strict I/O -needs to est after d/c w/ renal > recommend appt w/ me about 6-8 wks after hospital d/c at [facility] Appreciate consult; will follow with you. care coordinated w/ dr horn
--- NOTE | 2016-05-23 14:07 | Progress Note ---
Medicine Progress Note Date & Time of Visit: May 23, 2016 at 14:01. Subjective patient seen resting in bed states he continues to feel improved no abdominal pain , no BM yet no urinary symptoms denies other symptoms Objective Last 8 Hrs Date Time Temp Pulse Resp B/P Pulse Ox O2 Delivery O2 Flow Rate FiO2 05/23/16 07:16 36.6 66 20 153/83 93 Room Air Physical Exam: General- oriented x 3, not in distress, speaks in sentences with no effort Eyes- anicteric Neck- no JVD Lungs- clear to auscultation b/l, no rales/wheeze Heart- normal rate, regular rhythm; no murmurs Abdomen- normal bowel sounds, non distended, soft, nontender Extremities- no pretibial edema, no calf tenderness Neuro- alert, oriented x 3; no gross focal deficits Skin- warm & dry Laboratory Results: Last 24 Hours Test 05/22/16 16:19 05/22/16 19:58 05/23/16 07:28 05/23/16 07:55 Bedside Glucose 176 mg/dl 163 mg/dl 150 mg/dl White Blood Count 4.57 K/uL Red Blood Count 3.57 M/uL Hemoglobin 10.5 g/dL Hematocrit 30.9 % Mean Corpuscular Volume 86.6 fL Mean Corpuscular Hemoglobin 29.4 pg Mean Corpuscular Hemoglobin Concent 34.0 g/dl Platelet Count 157 K/uL Mean Platelet Volume 9.8 fL Neutrophils (%) (Auto) 41.8 % Lymphocytes (%) (Auto) 36.1 % Monocytes (%) (Auto) 14.4 % Eosinophils (%) (Auto) 6.8 % Basophils (%) (Auto) 0.7 % Neutrophils # (Auto) 1.91 K/uL Lymphocytes # (Auto) 1.65 K/uL Monocytes # (Auto) 0.66 K/uL Eosinophils # (Auto) 0.31 K/uL Basophils # (Auto) 0.03 K/uL RDW Standard Deviation 42.5 fL RDW Coefficient of Variation 13.4 % Immature Granulocyte % (Auto) 0.2 % Immature Granulocyte # (Auto) 0.01 K/uL Sodium Level 139 mmol/L Potassium Level 4.3 mmol/L Chloride Level 107 mmol/L Carbon Dioxide Level 22 mmol/L Anion Gap 10.0 mmol/L Blood Urea Nitrogen 50 mg/dl Creatinine 2.30 mg/dl Est Creatinine Clear Calc Drug Dose 44.2 ml/min Estimated GFR () 33.3 Estimated GFR (Non- 28.7 BUN/Creatinine Ratio 21.6 Random Glucose 155 mg/dl Calcium Level 7.8 mg/dl Magnesium Level 1.7 mg/dl Test 05/23/16 11:29 Bedside Glucose 177 mg/dl Assessment & Plan 65 year old male presents to the ED complaining of abdominal pain, nausea, vomiting, constipation x 2 days ABDOMINAL PAIN/VOMITING secondary to CONSTIPATION -CT A/P without obstruction -Lipase mildly elevated at 500 without epigastric abdominal pain -- BM with Lactulose and Senokot S -- Lipase normal TSH normal -- symptoms resolved ACUTE RENAL FAILURE ON CKD STAGE 3 -CT A/P shows right ureteral dilation with perinephric infiltration, 4mm renal stone -Has been taking some ibuprofen -Crea 3 from baseline of 2 - prerenal from dehydration versus renal from NSAIDS/diuretics, versus postrenal possible stone passage -- crea improved from 3 to 2.3 continue IV fluids, lower rate consulted Nephrology HYPERTENSIVE URGENCY , resolved -secondary to not taking his meds x 2 days -check EKG: sinus rhythm with 1st deg av block -troponin negative - continue metoprolol -hold losartan and HCTZ for GRIFFIN DIABETIC FOOT ULCER right first toe -wound culture pending -wound care nurse consult -no signs of infection - has ortho ff up IDDM -hold metformin -SSI coverage -BSG AC HS -consistent carb diet HLD -hold statin for GI upset DVT PROPHYLAXIS: Sq heparin CODE STATUS: FULL CODE DISPO: pending anticipate d/c home when medically stable Current Inpatient Medications: Current Inpatient Medications Medications (Trade) Dose Ordered Sig/Ghazala Route Start Time Stop Time Status Last Admin Dose Admin Heparin Sodium (Porcine) (Heparin Sq 5000 Unit/0.5ml) 5,000 unit Q8 SQ 05/21/16 14:00 06/20/16 13:59 05/22/16 21:36 5,000 UNIT Acetaminophen (Tylenol Tab) 650 mg Q4H PRN PO 05/21/16 10:15 06/20/16 10:14 05/21/16 20:23 650 MG Ondansetron HCl (Zofran Inj) 4 mg Q6H PRN IV 05/21/16 10:15 06/20/16 10:14 Polyethylene (Miralax Powder Packet) 17 gm DAILY PRN PO 05/21/16 10:15 06/20/16 10:14 Clonidine HCl (Catapres Tab) 0.1 mg Q6H PRN PO 05/21/16 10:15 06/20/16 10:14 Senna/Docusate Sodium (Senokot S Tab) 1 tab QAM PO 05/22/16 09:00 06/21/16 08:59 05/23/16 12:50 1 TAB Bisacodyl 10 mg 10 mg DAILY PRN [place] 05/21/16 10:15 06/20/16 10:14 Sodium Chloride (Nss 1000ml) 1,000 ml @ 100 mls/hr Q10H IV 05/21/16 10:30 05/23/16 12:48 100 MLS/HR Aspirin (Ecotrin Tab) 81 mg DAILY PO 05/22/16 09:00 06/21/16 08:59 05/23/16 09:19 81 MG Insulin Aspart (novoLOG ASPART) SLIDING SCALE If C... ACHS SC 05/21/16 11:00 06/20/16 10:59 05/23/16 12:45 8 UNITS Glucose (Glucose 40% Gel) 15-30 GRAMS 15 GRAMS... UD PRN PO 05/21/16 10:30 06/20/16 10:29 Glucose (Glucose Chew Tab) 4-8 Tablets 4 Tabl... UD PRN PO 05/21/16 10:30 06/20/16 10:29 Dextrose (Dextrose 50% 50ML Syringe) 25-50ML OF 50% DW IV FOR... UD PRN IV 05/21/16 10:30 06/20/16 10:29 Glucagon (Glucagon Inj) 1 mg UD PRN SQ 05/21/16 10:30 06/20/16 10:29 Metoprolol Tartrate (Lopressor Tab) 100 mg BID17 PO 05/21/16 17:00 06/20/16 16:59 05/23/16 09:19 100 MG Lactulose (Chronulac Syrup) 30 gm TID PRN PO 05/21/16 19:00 06/20/16 18:59 Hydromorphone HCl (Dilaudid Inj) 0.5 mg Q3H PRN IV 05/21/16 21:15 06/04/16 21:14 Tramadol HCl (Ultram Tab) not relieved by tylenol @ Q6H PRN PO 05/21/16 21:15 06/20/16 21:14 Oxycodone/ Acetaminophen (Percocet 5-325mg Tab) 1 tab Q6H PRN PO 05/21/16 21:15 06/04/16 21:14
[2016-05-23 14:43] VITALS: BP 146/77; PULSE 65; TEMP 36.2; O2SAT 94
[2016-05-23 17:00] VITALS: BP 155/83; PULSE 65
[2016-05-24 00:18] VITALS: BP 169/92; PULSE 69; TEMP 36.6; O2SAT 98
[2016-05-24] MEDS ORDERED: CLONIDINE HCL 0.1 MG TAB PO PRN (03:00)
[2016-05-24] MEDS: SODIUM CHLORIDE 0.9% 1000ML 1,000 ML IV SCH (03:54)
[2016-05-24] MEDS: DOCUSATE SODIUM/SENNA 50/8.6MG TAB PO SCH (05:16)
[2016-05-24] MEDS: HEPARIN SOD 5000 UNIT/0.5 ML CARP SQ SCH ×2 (05:18→14:46)
[2016-05-24 07:04] LABS: BASO % 0.7 %; BASO ABS # 0.03 K/uL (0-0.2); COMPLETE YES; EOS % 8.6 %; HEMATOCRIT 29.5 % (42-52); IG% 0.5 %; LYMPH ABS # 1.63 K/uL (1.2-3.4); MEAN CELL VOLUME 85.8 fL (80-100); MEAN CORPUSCULAR HEMOGLOBIN 29.1 pg (25-34); MEAN CORPUSCULAR HGB CONC 33.9 g/dl (32-36); MONO % 13.6 %; NEUT % 39.6 %; PLATELET COUNT 164 K/uL (130-400); RED BLOOD COUNT 3.44 M/uL (4.7-6.1)
[2016-05-24 07:45] LABS: BUN/CREATININE RATIO 21.5 (10-20); CALCIUM 7.8 mg/dl (8.5-10.1); CREATININE 1.9 mg/dl (0.60-1.40); MAGNESIUM 1.7 mg/dl (1.8-2.4); POTASSIUM 4.3 mmol/L (3.5-5.1)
[2016-05-24 07:48] VITALS: BP 171/77; PULSE 63; TEMP 36.4; O2SAT 93
[2016-05-24] MEDS: ASPIRIN 81 MG ECTAB PO SCH (08:10)
[2016-05-24] MEDS: METOPROLOL TARTRATE 100 MG TAB PO SCH (08:10)
[2016-05-24] MEDS ORDERED: MAGNESIUM OXIDE 400 MG TAB PO ONE (09:00)
[2016-05-24] MEDS: INSULIN ASPART 100 UNITS/ML 3 ML PEN SC SCH ×2 (10:05→12:57)
[2016-05-24 10:20] VITALS: BP 151/74
--- NOTE | 2016-05-24 14:58 | Progress Note ---
Medicine Progress Note Date & Time of Visit: May 24, 2016 at 14:48. Subjective patient seen sitting up in bed comfortably states he feels better overall denies dyspnea, chest pain, palpitations, dizziness denies other symptoms states he is ready and would like to be discharged today Objective Last 8 Hrs Date Time Temp Pulse Resp B/P Pulse Ox O2 Delivery O2 Flow Rate FiO2 05/24/16 10:20 151/74 05/24/16 08:10 Room Air 05/24/16 07:48 36.4 63 20 171/77 93 Physical Exam: General- oriented x 3, not in distress, speaks in sentences with no effort Eyes- anicteric Lungs- clear breath sounds b/l, no rales/wheeze Heart- normal rate, regular rhythm; no murmurs Abdomen- normal bowel sounds, non distended, soft, nontender Extremities- no pretibial edema, no calf tenderness small open wound on the right foot: no discharge, tenderness Neuro- alert, oriented x 3; no gross focal deficits Skin- warm & dry Laboratory Results: Last 24 Hours Test 05/23/16 16:32 05/23/16 20:27 05/24/16 06:30 05/24/16 07:42 Bedside Glucose 148 mg/dl 155 mg/dl 165 mg/dl White Blood Count 4.40 K/uL Red Blood Count 3.44 M/uL Hemoglobin 10.0 g/dL Hematocrit 29.5 % Mean Corpuscular Volume 85.8 fL Mean Corpuscular Hemoglobin 29.1 pg Mean Corpuscular Hemoglobin Concent 33.9 g/dl Platelet Count 164 K/uL Mean Platelet Volume 10.0 fL Neutrophils (%) (Auto) 39.6 % Lymphocytes (%) (Auto) 37.0 % Monocytes (%) (Auto) 13.6 % Eosinophils (%) (Auto) 8.6 % Basophils (%) (Auto) 0.7 % Neutrophils # (Auto) 1.74 K/uL Lymphocytes # (Auto) 1.63 K/uL Monocytes # (Auto) 0.60 K/uL Eosinophils # (Auto) 0.38 K/uL Basophils # (Auto) 0.03 K/uL RDW Standard Deviation 41.8 fL RDW Coefficient of Variation 13.3 % Immature Granulocyte % (Auto) 0.5 % Immature Granulocyte # (Auto) 0.02 K/uL Sodium Level 139 mmol/L Potassium Level 4.3 mmol/L Chloride Level 107 mmol/L Carbon Dioxide Level 20 mmol/L Anion Gap 12.0 mmol/L Blood Urea Nitrogen 41 mg/dl Creatinine 1.90 mg/dl Est Creatinine Clear Calc Drug Dose 53.5 ml/min Estimated GFR () 41.9 Estimated GFR (Non- 36.2 BUN/Creatinine Ratio 21.5 Random Glucose 170 mg/dl Calcium Level 7.8 mg/dl Magnesium Level 1.7 mg/dl Test 05/24/16 11:30 Bedside Glucose 204 mg/dl Assessment & Plan 65 year old male presents to the ED complaining of abdominal pain, nausea, vomiting, constipation x 2 days ABDOMINAL PAIN/VOMITING secondary to CONSTIPATION - CT A/P without obstruction --given Senokot S and Lactulose PRN -- Lipase normal TSH normal -- symptoms resolved -- Senokot S daily ACUTE RENAL FAILURE ON CKD STAGE 3 -CT A/P shows right ureteral dilation with perinephric infiltration, 4mm renal stone -Has been taking some ibuprofen -Crea increased to 3 from baseline of 2 - likely from prerenal from dehydration versus renal from NSAIDS/diuretics, versus postrenal possible stone passage - given IV fluids - Nephrology consulted -- crea improved from 3 to 1.9 (baseline) -- advised to avoid NSAIDs, maintain hydration outpatient ff up with Dr. Nguyen HYPERTENSIVE URGENCY , resolved -secondary to not being able to take his meds x 2 days -check EKG: sinus rhythm with 1st deg av block -troponin negative - continue metoprolol, losartan, HCTZ DIABETIC FOOT ULCER right first toe -wound culture: coag neg staph, no sensitivity to follow -wound care nurse consulted - no signs of infection - has ortho ff up IDDM - continue usual regimen HLD - continue Statin DVT PROPHYLAXIS: Sq heparin given CODE STATUS: FULL CODE DISPO: d/c home ff up with PCP in 3-5 days ff up with [employer] [facility] Dr. Nguyen Current Inpatient Medications: Current Inpatient Medications Medications (Trade) Dose Ordered Sig/Ghazala Route Start Time Stop Time Status Last Admin Dose Admin Heparin Sodium (Porcine) (Heparin Sq 5000 Unit/0.5ml) 5,000 unit Q8 SQ 05/21/16 14:00 06/20/16 13:59 05/24/16 05:18 5,000 UNIT Acetaminophen (Tylenol Tab) 650 mg Q4H PRN PO 05/21/16 10:15 06/20/16 10:14 05/21/16 20:23 650 MG Ondansetron HCl (Zofran Inj) 4 mg Q6H PRN IV 05/21/16 10:15 06/20/16 10:14 Polyethylene (Miralax Powder Packet) 17 gm DAILY PRN PO 05/21/16 10:15 06/20/16 10:14 Senna/Docusate Sodium (Senokot S Tab) 1 tab QAM PO 05/22/16 09:00 06/21/16 08:59 05/24/16 05:16 1 TAB Bisacodyl (Dulcolax Supp) 10 mg DAILY PRN [place] 05/21/16 10:15 06/20/16 10:14 Aspirin (Ecotrin Tab) 81 mg DAILY PO 05/22/16 09:00 06/21/16 08:59 05/24/16 08:10 81 MG Insulin Aspart (novoLOG ASPART) SLIDING SCALE If C... ACHS SC 05/21/16 11:00 06/20/16 10:59 05/24/16 12:57 7 UNITS Glucose (Glucose 40% Gel) 15-30 GRAMS 15 GRAMS... UD PRN PO 05/21/16 10:30 06/20/16 10:29 Glucose (Glucose Chew Tab) 4-8 Tablets 4 Tabl... UD PRN PO 05/21/16 10:30 06/20/16 10:29 Dextrose (Dextrose 50% 50ML Syringe) 25-50ML OF 50% DW IV FOR... UD PRN IV 05/21/16 10:30 06/20/16 10:29 Glucagon (Glucagon Inj) 1 mg UD PRN SQ 05/21/16 10:30 06/20/16 10:29 Metoprolol Tartrate (Lopressor Tab) 100 mg BID17 PO 05/21/16 17:00 06/20/16 16:59 05/24/16 08:10 100 MG Lactulose (Chronulac Syrup) 30 gm TID PRN PO 05/21/16 19:00 06/20/16 18:59 Hydromorphone HCl (Dilaudid Inj) 0.5 mg Q3H PRN IV 05/21/16 21:15 06/04/16 21:14 Tramadol HCl (Ultram Tab) not relieved by tylenol @ Q6H PRN PO 05/21/16 21:15 06/20/16 21:14 Oxycodone/ Acetaminophen (Percocet 5-325mg Tab) 1 tab Q6H PRN PO 05/21/16 21:15 06/04/16 21:14 05/24/16 05:16 1 TAB Clonidine HCl (Catapres Tab) 0.1 mg Q6H PRN PO 05/24/16 03:00 06/23/16 02:59 Magnesium Oxide (Mag-Ox Tab) 400 mg QAM PO 05/25/16 08:00 06/24/16 07:59
[2016-05-24] MEDS ORDERED: MGNO400 PO (14:59)
[2016-05-24] MEDS ORDERED: SENN8.6T7 PO (14:59)
--- NOTE | 2016-05-24 15:07 | Discharge Instructions ---
Discharge Instructions Admission Reason for Admission: Acute Renal Failure, Hypertnesive Urgency Discharge Discharge Diagnosis / Problem: Acute Renal Failure Discharge Goals Goal(s): Diagnostic testing, Therapeutic intervention Activity Recommendations Activity Limitations: resume your previous activity . Instructions / Follow-Up Instructions / Follow-Up PLEASE REVIEW YOUR MEDICATION LIST AND FOLLOW INSTRUCTIONS CAREFULLY. NO NSAIDS (IBUPROFEN, NAPROXEN, CELEBREX, ETC.) CONSULT WITH YOUR DOCTOR BEFORE STARTING ANY NEW MEDICATION. CALL PRIMARY CARE PHYSICIAN OR RETURN TO ER IMMEDIATELY IF WITH RECURRENCE OF SYMPTOMS. FOLLOW UP WITH PRIMARY CARE PHYSICIAN DR. LAU ON TUESDAY 9:30AM. Current Hospital Diet Patient's current hospital diet: Diabetes Type 2 Diet, Renal Diet Discharge Diet Recommended Diet: AHA Diet (Heart Healthy), Diabetes Type 2 Diet Pending Studies Studies pending at discharge: yes List of pending studies: BLOOD WORK FOR PARTIAL RENAL PROFILE AND MAGNESIUM Medical Emergencies . Who to Call and When: Medical Emergencies: If at any time you feel your situation is an emergency, please call 911 immediately. . Non-Emergent Contact Non-Emergency issues call your: Primary Care Provider Call Non-Emergent contact if: you have a fever, you have any medication questions . Past History Medical & Surgical History: (1) IDDM (insulin dependent diabetes mellitus) (2) HTN (hypertension) (3) HLD (hyperlipidemia) (4) Obesity (5) CKD (chronic kidney disease), stage III (6) S/P surgical manipulation of ankle joint (7) H/O knee surgery (8) History of tonsillectomy . "Provider Documentation" section prepared by John Rogers. VTE Core Measure Inpt VTE Proph given/why not?: Unfractionated heparin SQ
[2016-05-24] MEDS ORDERED: NRV5 PO (15:18)
--- NOTE | 2016-05-24 15:24 | Discharge Summary ---
Discharge Summary Admission Date: May 21, 2016 at 10:14 Discharge Date: May 24, 2016 Discharge Disposition: Home Principal Diagnosis: ACUTE RENAL FAILURE ON CKD STAGE 3 Secondary Diagnoses/Problems: ABDOMINAL PAIN/VOMITING secondary to CONSTIPATION HYPERTENSIVE URGENCY , resolved DIABETIC FOOT ULCER right first toe IDDM HLD Procedures: CT OF THE ABDOMEN AND PELVIS WITHOUT CONTRAST, STONE PROTOCOL CLINICAL HISTORY: Right-sided abdominal pain, vomiting and constipation. COMPARISON STUDY: None. TECHNIQUE: Helical axial images of the abdomen and pelvis were obtained without IV or oral contrast according to renal stone protocol. FINDINGS: Lung bases are clear. There is mild right perinephric and periureteral ureteral infiltration with mild dilatation of the right collecting system and ureter. No right ureteral calculus is present. There is a 4 mm calculus within the lower pole of the right kidney. There are multiple bilateral renal lesions. These are suboptimally assessed on this unenhanced exam but measure water attenuation likely reflect cysts. Unenhanced images of the liver, spleen, adrenal glands and pancreas are normal. There is no evidence for a bowel obstruction. There is left colon diverticulosis without evidence for acute diverticulitis. The appendix is normal. Skeletal structures are unremarkable for age. There is no lymphadenopathy. IMPRESSION: 1. Mild dilatation of the right ureter and collecting system with mild perinephric and ureteral infiltration. The findings raise the possibility of a recently passed calculus. An infectious process could appear similar and this could be correlated with urinalysis. 2. 4 mm right renal calculus. 3. Several bilateral renal lesions which are suboptimally assessed on this unenhanced exam. However, these measure water attenuation and likely reflect cysts. Consultations: [employer] Worker Dr. Nguyen Pending Studies/Follow-Up: Nephrology ff up with Dr. Nguyen in 6 weeks; Medication changes: Losartan and HCTZ on hold, repeat PRP on follow up, resume if crea stable Amlodipine 5mg po daily ordered for now, d/c if patient is back on Losartan and HCTZ Senokot S added Mg oxide x 3 days, repeat Mg on follow up Please refer to hospital course below. Medication Reconciliation New Medications: Amlodipine Besylate (Amlodipine Besylate) 5 Mg Tab 5 MG PO DAILY, #30 TAB Magnesium Oxide (Magnesium-Oxide) 400 Mg Tab 400 MG PO QAM for 3 Days, #6 TAB Sennosides-Docusate Sodium (Senokot S) 1 Tab Tab 1 TAB PO QAM for 30 Days, #30 TABS 2 Refills Continued Medications: Aspirin (Aspirin) 81 Mg Tab 1 TAB PO DAILY for 30 Days, #30 TAB 3 Refills Atorvastatin (Lipitor) 20 Mg Tab 20 MG PO HS, TAB Insulin Human NPH (Novolin N) 100 Units/Ml Susp 32 UNITS SQ BID Insulin Human Regular (Novolin R) 100 Units/1 Ml Inj 38 UNITS SC AC Metformin Ext Rel (Glucophage Ext Rel) 500 Mg Tab 500 MG PO TID, TAB Metoprolol Tartrate (Lopressor) 100 Mg Tab 1 TAB PO BID for 30 Days, #60 TAB 5 Refills Multiple Vitamin (Multiple Vitamin) 1 Tab Tab 1 TAB PO DAILY Kcoyiwhlqzgds-Buosumlmeb-Mjlxw (Nyquil Severe Cold/Flu 5-6.25-10-325 mg/15Ml) 1 Liq Liq 15 ML PO UD PRN for cold Discontinued Medications: Hydrochlorothiazide (Hydrochlorothiazide) 25 Mg Tab 12.5 MG PO DAILY Losartan Potassium (Cozaar) 50 Mg Tab 100 MG PO DAILY, TAB Admission Information HPI (per Admitting provider): Patient seen and examined. 65 year old male with PMHx of IDDM, HTN, CKD stage 3 , HLD presents to the ED complaining of abdominal pain x 2 days. Patient states the pain is mostly in the lower abdomen, he describes it as crampy and rates it as a 9/10. He reports associated vomiting which makes him feel a little bit better for a short time. He reports he has been having some constipation but did have a hard BM about 30 hours ago. He reports he has been taking stool softeners and 400mg ibuprofen with minimal relief. He reports he feels bloated. He denies fevers, chills, URI symptoms, chest pain, SOB, dysuria, diarrhea, calf pain and edema. He denies sick contacts, new or unusual foods. He denies history of kidney stones. He reports he has not taken his medications in a few days. In the ED patient's BP is elevated, Crea is 3 from 2 a month ago, lipase is 500, CT A/P shows right ureteral dilation with perinephric infiltration ? infection versus recent stone passage. UA does not show signs of infection. He received Zofran, morphine, IVFs, and Cipro. He is resting comfortably. He will be admitted for further workup and treatment. Physical Exam (per Admitting): General Appearance: + pertinent finding (WD/WN 65 year old male lying in bed in NAD ) Head: normocephalic, atraumatic Eyes: PERRL, EOMI, sclerae normal ENT: hearing grossly normal, pharynx normal Neck: supple, no JVD Respiratory/Chest: chest non-tender, lungs clear, normal breath sounds, no respiratory distress, no accessory muscle use Cardiovascular: regular rate, rhythm, no edema, no gallop, no JVD, no murmur , normal peripheral pulses Abdomen/GI: normal bowel sounds, non tender, soft Back: normal inspection, no CVA tenderness, no muscle spasm Extremities/Musculoskelatal: no calf tenderness, normal capillary refill, no pedal edema, + pertinent finding (right medial aspect of first toe with diabetic ulcer, no signs of infection ) Neurologic/Psych: alert, oriented x 3, + pertinent finding (no motor or sensory deficist noted on gross exam ) Skin: normal color, warm/dry, no rash Lymphatic: no adenopathy Hospital Course 65 year old male presents to the ED complaining of abdominal pain, nausea, vomiting, constipation x 2 days ACUTE RENAL FAILURE ON CKD STAGE 3 - likely from prerenal from vomiting, renal from NSAIDS/diuretics -CT Abdomen: shows right ureteral dilation with perinephric infiltration, 4mm renal stone -Has been taking some ibuprofen as well -Crea increased to 3 from baseline of 2 - given IV fluids - Nephrology consulted -- crea improved from 3 to 1.9 (baseline) -- per Nephrology, hold Losartan and HCTZ, recheck renal function on ff up with PCP, resume accordingly if renal function stable Amlodipine ordered for now -- advised to avoid NSAIDs, maintain hydration outpatient ff up with Dr. Nguyen in 6 weeks ABDOMINAL PAIN/VOMITING secondary to CONSTIPATION - CT A/P without obstruction --given Senokot S and Lactulose PRN -- Lipase normal TSH normal -- symptoms resolved -- Senokot S daily MILD HYPOMAGNESEMIA Mg 1.7 Mg oxide x 3 days ordered repeat Mg on PCP ff up HYPERTENSIVE URGENCY , resolved -secondary to not being able to take his meds x 2 days -check EKG: sinus rhythm with 1st deg av block -troponin negative - continue usual metoprolol - per Nephrology, hold Losartan and HCTZ, recheck renal function on ff up with PCP, resume accordingly if renal function stable Amlodipine ordered for now DIABETIC FOOT ULCER right first toe -wound culture: coag michael coronado, no sensitivity to follow -wound care nurse consulted - no signs of active infection - has Ortho ff up IDDM - continue usual regimen HLD - continue Statin DVT PROPHYLAXIS: Sq heparin given CODE STATUS: FULL CODE DISPO: d/c home ff up with PCP in 3-5 days ff up with [employer] Worker Dr. Nguyen Total time spent on discharge = 40 minutes This includes examination of the patient, discharge planning, medication reconciliation, and communication with other providers. Discharge Instructions Discharge Instructions Admission Reason for Admission: Acute Renal Failure, Hypertnesive Urgency Discharge Discharge Diagnosis / Problem: Acute Renal Failure Discharge Goals Goal(s): Diagnostic testing, Therapeutic intervention Activity Recommendations Activity Limitations: resume your previous activity . Instructions / Follow-Up Instructions / Follow-Up PLEASE REVIEW YOUR MEDICATION LIST AND FOLLOW INSTRUCTIONS CAREFULLY. NO NSAIDS (IBUPROFEN, NAPROXEN, CELEBREX, ETC.) CONSULT WITH YOUR DOCTOR BEFORE STARTING ANY NEW MEDICATION. CALL PRIMARY CARE PHYSICIAN OR RETURN TO ER IMMEDIATELY IF WITH RECURRENCE OF SYMPTOMS. FOLLOW UP WITH PRIMARY CARE PHYSICIAN DR. LAU ON TUESDAY 9:30AM. Current Hospital Diet Patient's current hospital diet: Diabetes Type 2 Diet, Renal Diet Discharge Diet Recommended Diet: AHA Diet (Heart Healthy), Diabetes Type 2 Diet Pending Studies Studies pending at discharge: yes List of pending studies: BLOOD WORK FOR PARTIAL RENAL PROFILE AND MAGNESIUM Medical Emergencies . Who to Call and When: Medical Emergencies: If at any time you feel your situation is an emergency, please call 911 immediately. . Non-Emergent Contact Non-Emergency issues call your: Primary Care Provider Call Non-Emergent contact if: you have a fever, you have any medication questions . Past History Medical & Surgical History: (1) IDDM (insulin dependent diabetes mellitus) (2) HTN (hypertension) (3) HLD (hyperlipidemia) (4) Obesity (5) CKD (chronic kidney disease), stage III (6) S/P surgical manipulation of ankle joint (7) H/O knee surgery (8) History of tonsillectomy . "Provider Documentation" section prepared by John Rogers. VTE Core Measure Inpt VTE Proph given/why not?: Unfractionated heparin SQ
[2016-05-24 15:31] VITALS: BP 151/74; PULSE 63; TEMP 36.4; O2SAT 93
[2016-05-25] MEDS ORDERED: MAGNESIUM OXIDE 400 MG TAB PO SCH (08:00)
== END 2016-05-24 15:53 | disposition home or self-care (01) | DRG 683 ==
LOC: ENRESERVTM → ENRESERVDT → C.EDB 06:57 → C.EDINP 10:14 → C.2T 13:09 → C.MS4W 05-22 11:17
PROVIDERS: ADMIT Internal Medicine; ATTEND Internal Medicine
DX: N17.9 Acute kidney failure, unspecified (principal); Z68.41 Body mass index [BMI] 40.0-44.9, adult; N18.3 Chronic kidney disease, stage 3 (moderate); K59.00 Constipation, unspecified; E66.9 Obesity, unspecified; N20.0 Calculus of kidney; E11.22 Type 2 diabetes mellitus with diabetic chronic kidney disease; E78.5 Hyperlipidemia, unspecified; E83.42 Hypomagnesemia; E11.621 Type 2 diabetes mellitus with foot ulcer; L97.519 Non-pressure chronic ulcer of other part of right foot with unspecified severity; I16.0 Hypertensive urgency; I12.9 Hypertensive chronic kidney disease with stage 1 through stage 4 chronic kidney disease, or unspecified chronic kidney disease; R10.9 Unspecified abdominal pain; R11.10 Vomiting, unspecified; Z86.73 Personal history of transient ischemic attack (TIA), and cerebral infarction without residual deficits; Z79.82 Long term (current) use of aspirin; Z79.4 Long term (current) use of insulin; Z79.899 Other long term (current) drug therapy

== ENCOUNTER → 2016-05-31 | Outpatient (CLI) | payer OTHER ==
[~2016-05-31] MED LIST changes: -ANT25 PO; -ASPEC325 PO; +ASPI1TAB83 PO; +GADAVIST IV PRN; -GLC/500 PO; -LOSA50TA6 PO; -LPR25 PO; +METFTAB PO; +METO-596 PO; +MGNO400 PO; -NAPR-1169 PO; +NRV5 PO; -NVLNI SC; +NVLNI SQ; -Nyquil; +PHEN-905 PO; -PLV75 PO; +SENN8.6T7 PO
--- NOTE | 2016-05-31 19:45 | DIAGNOSTIC IMAGING REPORT ---
MRI RIGHT FOREFOOT COMBO CLINICAL HISTORY: Osteomyelitis. COMPARISON STUDY: No priors. TECHNIQUE: MRI of the right forefoot is performed utilizing various T1 and T2-weighted sequences in the axial, sagittal, and coronal planes. Contrast-enhanced images are acquired following the IV administration of 13.5 cc of Gadavist. The examination is severely degraded by motion artifact as well as by suboptimal positioning. Interpretation is also significantly suboptimal without plain film correlate. FINDINGS: There is hallux valgus. Advanced degenerative change is present throughout the forefoot with numerous foci of subchondral cyst formation within the first and second metatarsal heads. Cyst formation is also seen within the base of the second metatarsal and within several tarsal bones, greatest in the navicular. Nonspecific marrow edema is identified in the proximal shafts of the second and third metatarsals. There is nonspecific abnormal enhancement within the proximal shaft of the second metatarsal. No clear bony destruction is identified. Diffuse edema is seen within the superficial and deep soft tissues of the forefoot. Nonspecific patchy abnormal enhancement is identified. No organized fluid collection is seen. Nonspecific edema and atrophy is noted within the regional musculature. IMPRESSION: 1. Significant suboptimal examination as above. 2. There is no definite evidence of osteomyelitis. Radiographic correlation is recommended. 3. Extensive degenerative changes are identified as above suggesting a Charcot foot. Hallux valgus is noted. 4. Nonspecific marrow edema is seen in the proximal shafts of the second and third metatarsals. This could be related to trauma, arthritic change, stress reaction, or possibly osteomyelitis. Clinical correlation will be essential. 5. Diffuse edema is noted throughout the forefoot. Correlate clinically for evidence of cellulitis. Dictated: 05/31/2016 3:50 PM Transcribed: 05/31/2016 7:45 PM [place] Electronically signed by: Ashvin Carter M.D. 06/01/2016 10:31 AM Dictated Date/Time: 05/31/2016 3:50 PM
== END | disposition home or self-care (01) ==
LOC: C.MRI 13:23
PROVIDERS: ATTEND Podiatrist Foot & Ankle Surgery
DX: M86.171 Other acute osteomyelitis, right ankle and foot (principal); R60.0 Localized edema

== ENCOUNTER 2019-02-09 17:20 | Inpatient (IN) ==
--- OUTSIDE RECORDS SUMMARY | 2019-02-09 17:23 | External Medical Summary | Continuity of Care Document ---
:1950 Author Name Hina Bright, Provider Address Unavailable Unavailable , Care Team Providers Name Role Phone Jim Bright, John Whitmore Unavailable [email or web address] [place]AL[place] Unavailable Unavailable Problems Type 2 diabetes mellitus without complication (250.00) (E11. 9) Allergies and Adverse Reactions No Known Drug Allergies (Allergy) Medications Glucophage 500 MG Oral Tablet; patient t akes one tablet in the morning, one tablet at lunch and one tablet in the evening. Start: 18-Oct-2011 Refills: 0 HumaLOG 100 UNIT/ML Subcutaneous Solutio n; patient injects 20 units plus sliding scale at each meal, and 5 units plus sliding scale with snack. Total 80 units daily 10 ML Vial Refills: 0 Lantus 100 UNIT/ML Subcutaneous Solution; INJECT 38 UNITS @ Bedtime. Refills: 0 Multivitamins TABS Refills: 0 Aspirin 81 MG TABS Refills: 0 Viagra 50 MG Oral Tablet; TAKE 1 TABLET DAILY 1 HOUR BEFORE NEEDED Refills: 0 Procedures Procedures not documented Immunizations Immunizations not documented Social History - Smoking Status Never smoker Plan of Treatment Planned Observations Planned Goals not documented Results No Known Results Results not documented
[2019-02-09] MEDS ORDERED: ONDANSETRON INJ 2 MG/ML 2 ML VIAL IV STA (18:00)
[2019-02-09] MEDS ORDERED: ACETAMINOPHEN 1,000 MG/100 ML VIAL IV STA (18:00)
[2019-02-09] MEDS ORDERED: SODIUM CHLORIDE 0.9% 1000ML 500 ML IV ONE ×2 (18:01→19:13)
[2019-02-09 18:33] LABS: Hematocrit (blood only) 41.3 % (42-52); Hemoglobin 14.5 g/dL (14.0-18.0); Mean Corpuscular Hemoglobin 30.3 pg (25-34); Mean Corpuscular Hgb Conc 35.1 g/dL (32-36); Mean Corpuscular Volume 86.2 fL (80-100); Mean Platelet Volume 10.5 fL (7.4-10.4); Platelet Count 143 K/uL (130-400); RDW Coefficient of Variation 13.7 % (11.5-14.5); RDW Standard Deviation 43.2 fL (36.4-46.3); Red Blood Count 4.79 M/uL (4.7-6.1)
--- NOTE | 2019-02-09 18:33 | Emergency Department Note ---
Entered by Trina Drake acting as a scribe for History of Present Illness General Chief complaint: Kidney Stone Stated complaint: POSS KIDNEY STONE Time Seen by Provider: 02/09/19 17:53 Source: patient Mode of arrival: ambulatory Limitations: no limitations History of Present Illness Provider complaint: Kidney stone Onset (ago): hour(s) (around 1300 today) Location: back (left kidney) Severity: similar to prior episodes (kidney stone) Pain Consistency: + other (worsening) Maximum Pain Intensity: 4 Quality: + other (kidney stone) Associated symptoms: + nausea/vomiting (now resolved) and + other (Additional symptoms: diarrhea, abdominal pain, back pain. Denies: hematuria); no chest pain, no fever/chills and no shortness of breath Treatments prior to arrival: none The patient is a 68 year old male with a history of a kidney stone, diabetes, hypertension, hyperlipidemia, and stage III CKD who presents to the Emergency Room with complaints of a worsening kidney stone starting around 1300 today. The patient reports that he had a normal bowel movement around 2300 last night and around 1100 this morning. However, around 1300, he states that he started feeling nauseous and had lower left sided abdominal pain and back pain. He notes that he went home and subsequently had diarrhea and 4-5 episodes of vomiting. He denies any fevers, chest pain, shortness of breath, and hematuria. He indicates that he is unsure if he has been suffering from urinary frequency secondary to taking Furosemide. The patient reports that the last time this happened over a year ago he was found to have a kidney stone. He believes that he passed this stone naturally in his sleep. He called today and spoke to his parts specialist's nurse over the phone and was instructed to report to the ED if his pain did not resolve. The patient states that he has not yet taken anything for his pain because he cannot take Ibuprofen secondary to his kidney condition. He notes that his nausea has now passed but that his abdominal and back pain are constant. He reports that he had been feeling well prior to the onset of these symptoms and that his blood sugar has been controlled. He recalls that he ate barbeque wings from a pizza place for the first time last night. He denies a history of diverticulitis. Home Medications Home Medications Medication Instructions Recorded Confirmed Type Berberine 1 tab PO WK 02/09/19 02/09/19 History amlodipine [Norvasc] 10 mg PO DAILY 02/09/19 02/09/19 History cholecalciferol (vitamin D3) 5,000 unit PO DAILY 02/09/19 02/09/19 History [Vitamin D3] furosemide [Lasix] 40 mg PO BID 02/09/19 02/09/19 History glucosamine-chondroitin [Osteo 1 tab PO 2XWK 02/09/19 02/09/19 History Bi-Flex] insulin NPH isoph U-100 human 52 unit SUBCUT BID 02/09/19 02/09/19 History [Novolin N NPH U-100 Insulin] insulin regular human [Novolin R 40 unit SUBCUT TIDM 02/09/19 02/09/19 History Regular U-100 Insuln] metoprolol tartrate [Lopressor] 100 mg PO DAILY 02/09/19 02/09/19 History Allergies Allergy/AdvReac Type Severity Reaction Status Date / Time lisinopril AdvReac Severe Cough Verified 02/09/19 19:19 Past Med/Surg History Medical History Kidney stone (Acute) IDDM (insulin dependent diabetes mellitus) (Chronic) HTN (hypertension) (Chronic) HLD (hyperlipidemia) (Chronic) CKD (chronic kidney disease), stage III (Chronic) Obesity (Chronic) Surgical History S/P surgical manipulation of ankle joint (Chronic) H/O knee surgery (Chronic) History of tonsillectomy (Chronic) Social History Preferred Language: Polish Communication Ability: Effective Vp Software Support Required: No Beliefs That Will Affect Care: None marital status: Current Living Situation: Other current occupational status: retired Other Information That Helps Us Care for You: Yes (conservative alliance party) Feels Safe at Home: Yes Safety Concerns: Feels Safe At This Time Smoking Status: Never smoker Do You Dip or Chew Tobacco: No ; Second Hand Exposure: No ; Tobacco Cessation Education Requested by Patient: No Hx Alcohol Use: No Hx Substance Use: No Review of Systems See HPI for pertinent positives & negatives. and A total of 10 systems reviewed and were otherwise negative Physical Exam Vital Signs Vital Signs - 24 hr 02/09/19 17:25 02/09/19 19:30 Temperature 36.7 C Temperature Source Oral Sepsis Recent Fever Within 48 Hours No Sepsis New/Unexplained Change in Mental Status No Sepsis Action Taken by Nursing No Action Required Pulse Rate 94 H Pulse Rate [Finger] 96 H Pulse Rhythm Regular Pulse Strength Normal Respiratory Rate 20 20 Respiratory Effort / Characteristics Non-Labored Spontaneous Non-Labored Spontaneous Respiratory Depth Normal Normal Respiratory Pattern Regular Regular Blood Pressure 129/84 Blood Pressure [Right Arm] 117/68 Blood Pressure Mean 99 Blood Pressure Mean [Right Arm] 84 Blood Pressure Position Sitting Blood Pressure Position [Right Arm] Sitting Pulse Oximetry 96 96 Oxygen Delivery Method Room Air Room Air GENERAL: Patient is in no acute distress. HEENT: No acute trauma, normocephalic atraumatic, mucous membranes moist, no nasal congestion, no scleral icterus. NECK: No stridor, no adenopathy, no meningismus, trachea is midline. LUNGS: Clear to auscultation bilaterally, no wheeze, no rhonchi, breath sounds equal. HEART: Without murmurs gallops or rubs, regular rate and rhythm. ABDOMEN: Soft, bowel sounds positive, no hernias, no peritonitis. Mildly tender along entire left side. BACK: No flank discomfort with percussion. EXTREMITIES: No cyanosis or edema, full range of motion of all the joints without pain or difficulty, no signs for acute trauma. NEUROLOGIC: Oriented x 3, no acute motor or sensory deficits, no focal weakness. SKIN: No rash, no jaundice, no diaphoresis. Course 1753: The patient was evaluated in room C5, and a complete history and physical examination were performed. 1911: The [facility] records were obtained at this time. The patient had a creatinine value of 2.5 in November of this year. 1929: I reviewed the patient's case with Dr. Galdamez - Visual Training AideKeenan kaba. Dr. Galdamez recommended the patient be admitted to the hospital overnight for hydration and creatinine level monitoring. 1933: I reviewed the patient's case with Dr. Hernandez - HospitalistKeenan. Dr. Hernanedz will evaluate the patient for further management. 1939: On reevaluation, the patient is resting. I discussed the results and findings with him. He verbalized agreement of the treatment plan. Consultations Consultation #1: I reviewed the patient's case with Dr. Galdamez - Visual Training AideKeenan kaba. Dr. Galdamez recommended the patient be admitted to the hospital overnight for hydration and creatinine level monitoring. Time: 19:30 Consultation #2: I reviewed the patient's case with Dr. Hernandez - HospitalistKeenan. Dr. Hernandez will evaluate the patient for further management. Time: 19:34 Administered Medications Discontinued Medications Acetaminophen (Ofirmev) 1,000 mg in 100 mls @ 400 mls/hr IV NOW STA Stop: 02/09/19 18:14 Last Infusion: 02/09/19 18:46 Dose: 0 mls/hr Documented by: [id number] Admin: 02/09/19 18:29 Dose: 400 mls/hr Documented by: [id number] Sodium Chloride (Nss 1000ml) 500 mls @ 999 mls/hr IV .Q31M ONE Stop: 02/09/19 18:31 Last Infusion: 02/09/19 19:00 Dose: 0 mls/hr Documented by: [id number] Admin: 02/09/19 18:29 Dose: 999 mls/hr Documented by: [id number] Sodium Chloride (Nss 1000ml) 500 mls @ 999 mls/hr IV .Q31M ONE Stop: 02/09/19 19:43 Last Infusion: 02/09/19 20:11 Dose: 0 mls/hr Documented by: [id number] Admin: 02/09/19 19:40 Dose: 999 mls/hr Documented by: [id number] Ondansetron HCl (Zofran) 4 mg IV NOW STA Stop: 02/09/19 18:01 Last Admin: 02/09/19 18:29 Dose: 4 mg Documented by: [id number] Medical Decision Making Differential Diagnosis Differential diagnosis includes: renal colic, diverticulitis, colitis, musculoskeletal pain, renal failure, electrolyte imbalance, foodborne illness, viral illness. Medical Records Attestation: I reviewed the patient's medical records. Home Medications Current Medication List: was personally reviewed by me Laboratory Data Attestation: I reviewed the patient's lab results. Result diagrams: 02/09/19 18:22 02/09/19 18:22 Lab Results 02/09/19 02/09/19 02/09/19 Range/Units 18:22 18:22 18:22 WBC 9.50 (4.8-10.8) K/uL RBC 4.79 (4.7-6.1) M/uL Hgb 14.5 (14.0-18.0) g/dL Hct 41.3 L (42-52) % MCV 86.2 (80-100) fL MCH 30.3 (25-34) pg MCHC 35.1 (32-36) g/dL RDW Std Deviation 43.2 (36.4-46.3) fL RDW Coeff of Nasim 13.7 (11.5-14.5) % Plt Count 143 (130-400) K/uL MPV 10.5 H (7.4-10.4) fL Sodium 133 L (136-145) mmol/L Potassium 4.5 (3.5-5.1) mmol/L Chloride 102 (98-107) mmol/L Carbon Dioxide 22 (21-32) mmol/L Anion Gap 9.0 (3-11) BUN 63 H (7-18) mg/dl Creatinine 3.41 H (0.6-1.4) mg/dl Est Cr Clr Drug Dosing 28.0 ml/min Est GFR ( Amer) 20.3 Est GFR (Non-Af Amer) 17.5 BUN/Creatinine Ratio 18.6 (10-20) Glucose 276 H (70-99) mg/dl Calcium 9.4 (8.5-10.1) mg/dl Urine Color Yellow Urine Appearance Clear (Clear) Urine pH 5.0 (4.5-7.5) Ur Specific [place] 1.019 (1.000-1.030) Urine Protein 3+ H (Negative) Urine Glucose (UA) 2+ H (Negative) Urine Ketones Negative (Negative) Urine Blood 1+ H (Negative) Urine Nitrite Negative (Negative) Urine Bilirubin Negative (Negative) Urine Urobilinogen Negative (Negative) Ur Leukocyte Esterase Negative (Negative) Urine WBC (Auto) 5-10 H (0-5) /hpf Urine RBC (Auto) 0-4 (0-4) /hpf U Hyaline Cast (Auto) 1-5 (0-5) /lpf U Epithel Cells (Auto) 5-10 H (0-5) /lpf Urine Bacteria (Auto) Negative (Negative) Imaging Data Radiologist's Impression: Radiology results as stated below per my review and the radiologist's interpretation: CT abd pelvis wo con CLINICAL HISTORY: 68 years-old Male presenting with left-sided abdominal pain, concern for stone versus diverticulitis. TECHNIQUE: Multidetector CT of the abdomen and pelvis was performed without the use of intravenous contrast. IV contrast: None. One or more dose lowering techni ques were used consistent with the principles of ALARA (as low as reasonably achievable), including automatic exposure control, mA or kV adjustment to individual patient size, and/or use of iterative reconstruction. COMPARISON: 05/21/2016. CT DOSE (mGy.cm): The estimated cumulative dose is 2001.60 mGy.cm. FINDINGS: Truck Service Manager topogram: Unremarkable. Lung bases: Normal heart size. Coronary artery and aortic valve calcification. No pericardial or pleural effusion. No focal infiltrate or nodule at the lung bases. Liver: Normal morphology. Normal density. Biliary: No gross biliary ductal dilatation allowing for noncontrast technique. Normal gallbladder. Pancreas: Mild parenchymal atrophy. Spleen: Normal noncontrast appearance. Adrenal glands: Normal noncontrast appearance. Kidneys and ureters: Several cysts are noted bilaterally. Moderate bilateral nonspecific perinephric fat infiltration. Nonobstructing 5 mm calculus in the interpolar region of the right kidney. No right hydronephrosis. Mild left pelvocaliectasis and distention of the left ureter to a mild degree. There is no evidence of an obstructing calculus in the left ureter. Trace and periureteral fat infiltration along the proximal left ureter. Bladder: Incompletely evaluated secondary to underdistention. No bladder stacy culus. Pelvic organs: Normal noncontrast appearance. Bowel: Diverticulosis of the proximal to mid sigmoid colon and descending colon without wall thickening or pericolonic inflammatory change. The appendix is normal. No bowel obstruction. Peritoneal cavity: No free fluid or intraperitoneal gas. Lymph nodes: No gross lymphadenopathy allowing for noncontrast technique. Vasculature: Atherosclerosis of the normal caliber abdominal aorta. Abdominal wall: Small fat-containing umbilical hernia. Foci of subcutaneous gas and infiltration in the anterior abdominal wall likely relates to medication administration. Musculoskeletal: Degenerative changes of the spine. IMPRESSION: 1. Mild pelvocaliectasis of the left kidney and distention of the left ureter without evidence of an obstructing calculus. Given the associated mild inflammatory changes along the proximal left ureter, lungs favor a recently passed left renal calculus. No additional left renal calculus. 2. Nonobstructing right renal calculus. 3. Diverticulosis coli. No evidence of diverticulitis. Electronically signed by: Alex Ventura M.D. 02/09/2019 7:00 PM Blood Pressure Blood Pressure Findings: Elevated blood pressure Blood Pressure Disposition: further management by hospitalist LUCIA Narrative There is no leukocytosis or concerning anemia. Renal panel testing shows a high creatinine at 3.4, this is elevated compared to recent testing from just a few months ago. His creatinine basically has jumped by one-point. Glucose was slightly high at 276. Urinalysis showed some glucose, no signs of infection. Abdominal and pelvis CT shows a fullness to the left collecting system but no obstruction from a stone. A recently passed stone was thought possible. There was no diverticulitis. The patient received IV saline, 2/500 cc boluses were given. He was given IV Tylenol for pain, IV Zofran for nausea. I discussed the case with his parts specialist. Hospitalization was felt warranted given the high creatinine value. This value will need to be trended to ensure improvement in the next 24 hours. The cause for the higher value at this point is not completely clear. The cause for the left sided abdominal flank pain may have been a ureteral stone that just passed. Currently, the patient is resting comfortably. He is aware of his findings. I did speak with case management. The on-call hospitalist was consulted. Impression & Plan Acute kidney injury, Acute renal failure, Left sided abdominal pain Discharge Plan Visit Data *Final* Discharge Date/Time: 02/09/19 21:07 Chief Complaint: Kidney Stone Stated Complaint: POSS KIDNEY STONE ED Provider: Ashvin Camacho Discharge Problem: Acute kidney injury, Acute renal failure, Left sided abdominal pain Patient Disposition: Admitted As Inpatient Discharge Instructions Interventions: ED Discharge Assessment Last Done: 02/09/19 21:07 Discharge Problem: Acute renal failure Qualifiers: Acute renal failure type: unspecified Qualified Code(s): N17.9 - Acute kidney failure, unspecified The scribe's documentation has been prepared under my direction and personally reviewed by me in its entirety. I confirm that the note above accurately reflects all work, treatment, procedures, and medical decision making performed by me.
[2019-02-09 18:36] LABS: Appearance Urine Clear (Clear); Bacteria Urine Automated Negative (Negative); Bilirubin Urine Negative (Negative); Blood Urine 1+ (Negative); Color Urine Yellow; Glucose Urine UA 2+ (Negative); Ketones Urine Negative (Negative); Leukocyte Esterase Urine Negative (Negative); Nitrite Urine Negative (Negative); Protein Urine 3+ (Negative); RBC Urine Automated 0-4 /hpf (0-4); Specific Gravity Urine 1.019 (1.000-1.030); Urobilinogen Urine Negative (Negative)
[2019-02-09 18:49] LABS: BUN Creatinine Ratio 18.6 (10-20); Calcium 9.4 mg/dl (8.5-10.1); Est GFR (African American) 20.3; Est GFR (Non-African American) 17.5; Potassium 4.5 mmol/L (3.5-5.1)
--- NOTE | 2019-02-09 19:02 | CT Scan Report ---
CT abd pelvis wo con CLINICAL HISTORY: 68 years-old Male presenting with left-sided abdominal pain, concern for stone vers us diverticulitis. TECHNIQUE: Multidetector CT of the abdomen and pelvis was performed without the use of intravenous co ntrast. IV contrast: None. One or more dose lowering techniques were used consistent with the princip les of YURIY (as low as reasonably achievable), including automatic exposure control, mA or kV adjust ment to individual patient size, and/or use of iterative reconstruction. COMPARISON: 05/21/2016. CT DOSE (mGy.cm): The estimated cumulative dose is 2001.60 mGy.cm. FINDINGS: Band Bias Machine Operator topogram: Unremarkable. Lung bases: Normal heart size. Coronary artery and aortic valve calcification. No pericardial or pleu ral effusion. No focal infiltrate or nodule at the lung bases. Liver: Normal morphology. Normal density. Biliary: No gross biliary ductal dilatation allowing for noncontrast technique. Normal gallbladder. Pancreas: Mild parenchymal atrophy. Spleen: Normal noncontrast appearance. Adrenal glands: Normal noncontrast appearance. Kidneys and ureters: Several cysts are noted bilaterally. Moderate bilateral nonspecific perinephric fat infiltration. Nonobstructing 5 mm calculus in the interpolar region of the right kidney. No right hydronephrosis. Mild left pelvocaliectasis and distention of the left ureter to a mild degree. There is no evidence of an obstructing calculus in the left ureter. Trace and periureteral fat infiltratio n along the proximal left ureter. Bladder: Incompletely evaluated secondary to underdistention. No bladder calculus. Pelvic organs: Normal noncontrast appearance. Bowel: Diverticulosis of the proximal to mid sigmoid colon and descending colon without wall thickeni ng or pericolonic inflammatory change. The appendix is normal. No bowel obstruction. Peritoneal cavity: No free fluid or intraperitoneal gas. Lymph nodes: No gross lymphadenopathy allowing for noncontrast technique. Vasculature: Atherosclerosis of the normal caliber abdominal aorta. Abdominal wall: Small fat-containing umbilical hernia. Foci of subcutaneous gas and infiltration in t he anterior abdominal wall likely relates to medication administration. Musculoskeletal: Degenerative changes of the spine. IMPRESSION: 1. Mild pelvocaliectasis of the left kidney and distention of the left ureter without evidence of an obstructing calculus. Given the associated mild inflammatory changes along the proximal left ureter, lungs favor a recently passed left renal calculus. No additional left renal calculus. 2. Nonobstructing right renal calculus. 3. Diverticulosis coli. No evidence of diverticulitis. Electronically signed by: Alex Ventura M.D. 02/09/2019 7:00 PM
--- NOTE | 2019-02-09 20:28 | History & Physical Report ---
Date of Service February 09, 2019 Assessment & Plan (1) Acute renal failure: Acute renal failure on CKD stage III-IV Secondary to prerenal etiology from emesis and diarrhea, possible obstructive uropathy from a left kidney stone, passed --Baseline creatinine is 2.3-2.5, now presenting with creatinine of 3.41 --Nausea and diarrhea has resolved, no problems with voiding at this time --Will continue IV NSS at 100 cc/hr Hold Lasix, lisinopril -- will order as needed Ofirmev and tramadol for pain from renal colic --Production Cost Estimator Dr. Galdamez consulted Diabetes type 2 Usually on Novolin and Novolin R We will consult pharmacy glycemic control Hypertension Blood pressure on the lower side Hold lisinopril and Lasix in light of acute renal failure on CKD Continue metoprolol, amlodipine History of CVA On aspirin, will need to discuss with patient On Crestor Morbid obesity Counseling DVT prophylaxis Heparin 5000 mg subcutaneous every 8 hours Disposition Lives at home Anticipate discharge to home medically stable History of Present Illness Patient is a 62-year-old male with history of nephrolithiasis, CKD stage III-IV, diabetes type 2 with polyneuropathy, history of CVA, morbid obesity, Presenting with left flank pain since this afternoon. Patient follows with Dr. Enma Galdamez for CKD stage III-IV. He is also being followed for nephrolithiasis. This afternoon around 1 PM sharp intense left flank pain radiating to the left lower quadrant region. This was followed by multiple episodes of vomiting, 4 episodes as well as diarrhea x2 episodes. He called Dr. Galdamez's and was advised to proceed to the ER for evaluation. At the ER, CAT scan abdomen pelvis showed: IMPRESSION: 1. Mild pelvocaliectasis of the left kidney and distention of the left ureter without evidence of an obstructing calculus. Given the associated mild inflam matory changes along the proximal left ureter, lungs favor a recently passed left renal calculus. No additional left renal calculus. 2. Nonobstructing right renal calculus. 3. Diverticulosis coli. No evidence of diverticulitis. He was given IV Ofirmev, IV saline solution. On exam, the patient is sitting up in bedside chair, comfortable, not in distress. He states pain has resolved since IVF treatment was given. Denies nausea, abdominal pain, hematuria or dysuria, fevers or chills. No other symptoms Primary Care Provider: Ermias Zarate DO Allergies Allergy/AdvReac Type Severity Reaction Status Date / Time lisinopril AdvReac Severe Cough Verified 02/09/19 19:19 Home Medications Home Medications Medication Instructions Recorded Confirmed Type Berberine 1 tab PO WK 02/09/19 02/09/19 History amlodipine [Norvasc] 10 mg PO DAILY 02/09/19 02/09/19 History cholecalciferol (vitamin D3) 5,000 unit PO DAILY 02/09/19 02/09/19 History [Vitamin D3] furosemide [Lasix] 40 mg PO BID 02/09/19 02/09/19 History glucosamine-chondroitin [Osteo 1 tab PO 2XWK 02/09/19 02/09/19 History Bi-Flex] insulin NPH isoph U-100 human 52 unit SUBCUT BID 02/09/19 02/09/19 History [Novolin N NPH U-100 Insulin] insulin regular human [Novolin R 40 unit SUBCUT TIDM 02/09/19 02/09/19 History Regular U-100 Insuln] metoprolol tartrate [Lopressor] 100 mg PO DAILY 02/09/19 02/09/19 History Past Med/Surg History Medical History Kidney stone (Acute) IDDM (insulin dependent diabetes mellitus) (Chronic) HTN (hypertension) (Chronic) HLD (hyperlipidemia) (Chronic) CKD (chronic kidney disease), stage III (Chronic) Obesity (Chronic) Surgical History S/P surgical manipulation of ankle joint (Chronic) H/O knee surgery (Chronic) History of tonsillectomy (Chronic) Social History Preferred Language: Arabic marital status: current occupational status: retired Feels Safe at Home: Yes Smoking Status: Never smoker Review of Systems Review of Systems: All systems reviewed & are unremarkable except as noted in HPI & below Physical Exam Physical Exam: General- oriented x 3, not in distress, speaks in sentences with no effort or accessory muscle use Head- atraumatic Eyes- PERRL, EOMI, anicteric ENT- oropharynx clear Neck- supple, no JVD, no adenopathy, no thyromegaly; carotids +2/2, no bruits appreciated Lungs- clear to auscultation bilaterally, no rales/wheezes Heart- normal rate, regular rhythm; no murmur, no gallop, no rub appreciated Abdomen- normal bowel sounds, nondistended, soft, nontender, no masses or hepatosplenomegaly No CVA tenderness Extremities-positive grade 1 lower leg edema, no calf tenderness; peripheral pulses intact Neuro- alert, oriented x 3; CN 2-12 grossly intact; motor 5/5 bilaterally;sensation 100% on all extremities; no other gross focal neurologic deficits Skin- warm & dry Results & Data Vital Signs (Past 12 Hours) Vital Signs Temp Pulse Pulse Resp BP BP Pulse Ox 02/09/19 19:30 96 H 20 117/68 96 02/09/19 17:25 36.7 C 94 H 20 129/84 96 Code Status & VTE Plan Code Status Full code
[2019-02-09] MEDS ORDERED: CARBOHYDRATES FOR HYPOGLYCEMIA PO PRN (21:44)
[2019-02-09] MEDS ORDERED: GLUCAGON FOR INJ 1 MG VIAL SQ PRN (21:44)
[2019-02-09] MEDS ORDERED: GLUCOSE 40% GEL 15 GM TUBE PO PRN (21:44)
[2019-02-09] MEDS ORDERED: GLUCOSE 10 TABS/TUBE PO PRN (21:44)
[2019-02-09] MEDS ORDERED: DEXTROSE 50% 50 ML SYRINGE IV PRN (21:44)
[2019-02-09] MEDS ORDERED: ACETAMINOPHEN 1,000 MG/100 ML VIAL IV PRN (21:44)
[2019-02-09] MEDS ORDERED: TRAMADOL HCL 50 MG TABLET PO PRN (21:44)
[2019-02-09] MEDS ORDERED: PHARMACY GLYCEMIC MGMT CONSULT PRN (21:56)
[2019-02-09] MEDS ORDERED: ACETAMINOPHEN 500 MG TAB PO PRN (22:08)
[2019-02-09] MEDS ORDERED: INSULIN HUMAN NPH SC ONE (22:30)
[2019-02-09] MEDS: SODIUM CHLORIDE 0.9% 1000ML 1,000 ML IV SCH (22:31)
[2019-02-09] MEDS: INSULIN ASPART 100 UNITS/ML 3 ML PEN SC SCH (23:38)
[2019-02-09] MEDS: HEPARIN SOD 5,000 UNIT/0.5 ML VIAL SQ SCH (23:49)
[2019-02-10] MEDS ORDERED: PROMETHAZINE HCL 12.5 MG in SODIUM CHLORIDE 0.9% 50 ML IV PRN (00:02)
[2019-02-10] MEDS ORDERED: INSULIN ASPART 100 UNITS/ML 3 ML PEN SC SCH (02:00)
[2019-02-10] MEDS: HEPARIN SOD 5,000 UNIT/0.5 ML VIAL SQ SCH ×3 (05:47→20:35)
[2019-02-10 06:56] LABS: BUN Creatinine Ratio 19.6 (10-20); Calcium 8.7 mg/dl (8.5-10.1); Est GFR (African American) 20.7; Est GFR (Non-African American) 17.9; Magnesium 1.9 mg/dl (1.8-2.4); Phosphorus 3.6 mg/dl (2.5-4.9); Potassium 4.5 mmol/L (3.5-5.1)
[2019-02-10 07:00] LABS: Estimated Average Glucose 252 mg/dl; Hemoglobin A1C 10.4 % (4.5-5.6)
[2019-02-10] MEDS: AMLODIPINE BESYLATE 5 MG TAB PO SCH (08:23)
[2019-02-10] MEDS: METOPROLOL TARTRATE 100 MG TAB PO SCH ×2 (08:23→20:35)
[2019-02-10] MEDS: INSULIN ASPART 100 UNITS/ML 3 ML PEN SC SCH ×4 (08:26→20:35)
[2019-02-10] MEDS: SODIUM CHLORIDE 0.9% 1000ML 1,000 ML IV SCH ×2 (08:29→18:33)
[2019-02-10] MEDS ORDERED: METOPROLOL TARTRATE 100 MG TAB PO SCH (09:00)
[2019-02-10] MEDS: INSULIN HUMAN NPH SC SCH ×2 (12:32→20:34)
--- NOTE | 2019-02-10 13:33 | Pharmacy Report ---
Glycemic Control Consultation - Date of Service February 10, 2019 - Scope Scope: Glycemic Pharmacist consulted by Dr Rogers on 02/09/19 for glycemic control and to write orders per [facility] inpatient glycemic control protocol - Objective Weight: 136.5 kg Accuchecks BSG (last 24hrs): 02/09/19 02/09/19 02/10/19 18:22 23:27 02:00 Glucose 276 H POC Glucose 286 H 234 H 02/10/19 02/10/19 02/10/19 06:06 07:12 11:11 Glucose 160 H POC Glucose 150 H 159 H Laboratory Data (last 24hrs): 02/09/19 02/10/19 18:22 06:06 Potassium 4.5 4.5 Carbon Dioxide 22 24 Anion Gap 9.0 6.0 Creatinine 3.41 H 3.35 H Est Cr Clr Drug Dosing 28.0 29.0 HbA1c: Hemoglobin A1c 10.4 % (4.5-5.6) H 02/10/19 06:06 - Recent Pertinent Medications Outpatient Anti-diabetic Regimen: * NPH 52 units (at 00,12) plus regular 40 units TIDM * A1c = 10.4 % 02/10/19 The patient is currently receiving: * Basal insulin: NPH 50 units SQ x 1 * Correctional Insulin: Novolog Correction per scale ACHS Goal Range: Low 120 mg/dL - High 160 mg/dL Correction Factor: 10 mg/dL/unit * Prandial insulin: Per carb ratio of 1 unit per 3 grams CHO consumed * Oral Agents: N/A Risk Factors for Insulin Resistance: * Diet: T2DM - Assessment & Plan Assessment & Plan: ASSESSMENT: * Mr Grover is a 68 y/o M with a PMH of uncontrolled T2DM who presents with renal failure secondary to a kidney stone. Patient received 50 units of NPH last night at midnight, his typical dosing time. Nursing confirmed with patient he is willing to receive NPH at different times when hospitalized i.e. BIDM. * Patient's fasting blood sugar was excellent - 150 mg/dL and he received 8 units of Novolog at 0200. This suggests patient may be okay with 58 units of basal per day. Schedule NPH 30 units BIDM (start at noon today then give second dose at 2000). This is slightly less than weight-based stress of 3. * Weight-based stress of 3 for Novolog coverage currently. PLAN FOR INPATIENT GLYCEMIC CONTROL: * Basal insulin * NPH 30 units SQ BIDM * Bolus insulin * NovoLog per scale ACHS or Q6hrs while NPO * Goal Range: Low 110 mg/dL - High 140 mg/dL * Correction Factor: 10 mg/dL/unit * Nutritional / Prandial insulin per carb ratio of 1 unit per 3 grams CHO consumed RECOMMENDATIONS FOR DISCHARGE * Patient is on significant amount of insulin at home (224 units/day). Recommend follow-up with outpatient provider. * Patient may benefit from working with a glycemic pharmacist through [facility] melissa c. He may benefit from U-500 but this requires assessment as an outpatient. Thank you.
--- NOTE | 2019-02-10 13:34 | Nephrology Consultation ---
Date of Consultation February 10, 2019 Assessment & Plan (1) Acute on chronic renal failure: baseline creatinine 2.1-2.5, most recently 2.5 11/2018. Creatinine 3.4 on presentation and again this am. GRIFFIN cause likely multifactorial > from passing stone, from volume depletion related to emesis/diarrhea prior to presentation. Favor ischemic atn over prerenal process still possible since he has responded w/ improved creatinine despite 2.5L fluid; urine sediment no different than outpatient studies. -strict I/O for now, including # of bm -daily bmp -cont current bp meds -cont nsaid avoidance -ok for now to cont NS current rate Present on Admission?: Yes (2) Kidney stone: -will repeat 24 hr urorisk as OP -no indication at this time for urolog intervention; stone passed Present on Admission?: Yes History of Present Illness Reason for Consultation: GRIFFIN on CKD Requesting Physician: Dr Rogers Attending Physician: Cem Rubi MD History of Present Illness 68 y/o M whom I'm asked to see for GRIFFIN on CKD was admitted for same last evening after presenting wtih N, V, diarrhea that came on abruptly midday; he had been having some L flank pain as well same timeframe. His baseline creatinine is 2.1-2.5; he presented yesterday w/ creatinine 3.4, unchanged this am. Admission imaging suggestive of recently passed L stone. he received 1L NS in ER, then started on 100 mL hourly NS. BP has been well controlled. urine studies w/ dipstick blood, protein glucose. 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 Other PMH includes DM on insulin w/ retinopathy and activity-limiting neuropathy, obesity, HTN, 2014 TIA, R rotator cuff tear w/ chronic pain, HL, psoriasis. When I saw him in November he was taking 2-3 ibuprofen daily for R shoulder pain: I advised h im at that time to stop nsaids and f/u w/ pcp for alternative to lidocaine patch he'd been given at the time. He states he stopped nsaid at that time. He had also stopped losartan d/t diarrhea. today his presenting sx have resolved; not aware of having passed a stone Allergies Allergy/AdvReac Type Severity Reaction Status Date / Time lisinopril AdvReac Severe Cough Verified 11/08/19 19:19 Home Medications Home Medications Medication Instructions Recorded Confirmed Type Berberine 1 tab PO WK 02/09/19 02/09/19 History amlodipine [Norvasc] 10 mg PO DAILY 02/09/19 02/09/19 History cholecalciferol (vitamin D3) 5,000 unit PO DAILY 02/09/19 02/09/19 History [Vitamin D3] furosemide [Lasix] 40 mg PO BID 02/09/19 02/09/19 History glucosamine-chondroitin [Osteo 1 tab PO 2XWK 02/09/19 02/09/19 History Bi-Flex] insulin NPH isoph U-100 human 52 unit SUBCUT BID 02/09/19 02/09/19 History [Novolin N NPH U-100 Insulin] insulin regular human [Novolin R 40 unit SUBCUT TIDM 02/09/19 02/09/19 History Regular U-100 Insuln] metoprolol tartrate [Lopressor] 100 mg PO DAILY 02/09/19 02/09/19 History Crestor 5 mg PO DAILY 02/10/19 02/10/19 History metoprolol tartrate 100 mg PO BID 02/10/19 02/10/19 History Patient History Medical History Kidney stone (Acute) IDDM (insulin dependent diabetes mellitus) (Chronic) HTN (hypertension) (Chronic) HLD (hyperlipidemia) (Chronic) CKD (chronic kidney disease), stage III (Chronic) Obesity (Chronic) Surgical History S/P surgical manipulation of ankle joint (Chronic) H/O knee surgery (Chronic) History of tonsillectomy (Chronic) Social History Preferred Language: Yemeni Communication Ability: Effective Atv Mechanic Required: No Beliefs That Will Affect Care: None marital status: Current Living Situation: Other current occupational status: retired Other Information That Helps Us Care for You: Yes (conservative libertarian) Feels Safe at Home: Yes Safety Concerns: Feels Safe At This Time Smoking Status: Never smoker Do You Dip or Chew Tobacco: No ; Second Hand Exposure: No ; Tobacco Cessation Education Requested by Patient: No Hx Alcohol Use: No Hx Substance Use: No Review of Systems Review of Systems: All systems reviewed & are unremarkable except as noted in HPI & below Constitutional: as per Subjective / HPI, + fatigue and + malaise; no fever and no body aches Eyes: no worsening vision Ear, Nose, Mouth, Throat: no dry mouth Respiratory: no dyspnea Cardiovascular: no chest pain, no palpitations and no edema Gastrointestinal: as per Subjective / HPI Genitourinary: + dysuria, + urinary frequency and + urinary hesitancy Musculoskeletal: as per Subjective / HPI and + joint pain Integumentary: no rash, no non-healing lesions and no skin ulcer Neurologic: no gait abnormality, no falls and no generalized weakness Psychiatric: no behavioral changes Endocrine: + fatigue notes bg control better in [facility] than at home Hematologic / Lymphatic: no easy bleeding Physical Exam Constitutional: well developed and well nourished on RA, ambulatory Eyes: EOM intact bilaterally ENMT: Ears: no external ear abnormality Nose: no external nose abnormality Mouth: + dry oral mucous membranes Neck: no nuchal rigidity Respiratory: normal respiratory effort Auscultation: lungs clear to auscultation bilaterally and + diminished lung sounds Cardiovascular: RRR, no murmur, no edema Gastrointestinal (Abdomen): Inspection/Auscultation: normal bowel sounds Percussion/Palpation: abdomen soft; abdomen nontender Musculoskeletal: Extremities: strength 5/5 throughout no cva tenderness Skin: no rashes, warm and dry Neurologic: [place], fluent speech, no tremor Psychiatric: A+Ox3, euthymic affect Genitourinary: no lincoln; no cva tenderness Results & Data Vital Signs (Past 12 Hours) Vital Signs Temp Pulse Resp BP Pulse Ox 02/10/19 11:27 36.6 C 62 18 116/71 94 02/10/19 07:36 36.7 C 75 18 129/68 96 Laboratory Results 02/09/19 18:22 02/10/19 06:[address] abd/pelvis non con 1. Mild pelvocaliectasis of the left kidney and distention of the left ureter without evidence of an obstructing calculus. Given the associated mild inflammatory changes along the proximal left ureter, lungs favor a recently passed left renal calculus. No additional left renal calculus. 2. Nonobstructing right renal calculus. 3. Diverticulosis coli. No evidence of diverticulitis. (1) Acute on chronic renal failure Chronic kidney disease stage: stage 4 (severe)
--- NOTE | 2019-02-10 15:16 | Hospitalist Progress Note ---
Date of Service February 10, 2019 Assessment & Plan (1) Acute renal failure: Acute renal failure on CKD stage III-IV Multifactorial:possible obstructive uropathy, Medications, GI loses Baseline creatinine is 2.3-2.5 --CT ABD:Mild pelvocaliectasis of the left kidney and distention of the left ureter without evidence of an obstructing calculus. Given the associated mild inflammatory changes along the proximal left ureter, lungs favor a recently passed left renal calculus. No additional left renal calculus. Nonobstructing right renal calculus. Diverticulosis coli. No evidence of diverticulitis. --Continue IV fluids --Hold Lasix, lisinopril for now --Appreciate Nephrology Input --Monitor renal function --Avoid nephrotoxic agents as able --Consider repeat imaging studies if no improvement of renal function DM II Usually on Novolin and Novolin R Hb A1C:10.4 Continue insulin therapy Appreciate pharmacy glycemic management Hypertension Blood pressure sable Held lisinopril, Lasix due to GRIFFIN Continue metoprolol, amlodipine H/O CVA Not on aspirin On Crestor at home Morbid obesity BMI:44 Counseling DVT Px: Heparin SQ Code Status Full Code Disposition Anticipate discharge to home medically stable Subjective Patient is seen and examined at bedside States feeling much better today Left flank pain, nausea, diarrhea resolved Denies any hematuria, dysuria Also denies any chest pain, shortness of breath, dizziness Creatinine slightly improved today Review of Systems Review of Systems: All systems reviewed & are unremarkable except as noted in HPI & below Physical Exam Physical Exam: Physical Exam: Vitals signs as noted above General Appearance:Morbidly Obese, no apparent distress Head: normocephalic, Atraumatic Eyes: normal inspection, EOMI Neck: supple, Trachea midline Respiratory/Chest: Normal breath sounds, CTA Cardiovascular: S1, S2, No murmur Abdomen/GI:Soft, Non tender, Bowel sounds present Extremities/Musculoskelatal:normal inspection, 1-2 + B/L LE edema Neurologic/Psych:AAOX3, grossly no focal neurological deficits Skin: normal color, warm Results & Data Vital Signs (Past 12 Hours) Vital Signs Temp Pulse Resp BP Pulse Ox 02/10/19 11:27 36.6 C 62 18 116/71 94 02/10/19 07:36 36.7 C 75 18 129/68 96 Laboratory Results Short CBC 02/09/19 Range/Units 18:22 WBC 9.50 (4.8-10.8) K/uL Hgb 14.5 (14.0-18.0) g/dL Hct 41.3 L (42-52) % Plt Count 143 (130-400) K/uL BMP 02/09/19 02/10/19 18:22 06:06 Sodium 133 L 136 Potassium 4.5 4.5 Chloride 102 106 Carbon Dioxide 22 24 BUN 63 H 66 H Creatinine 3.41 H 3.35 H Glucose 276 H 160 H Calcium 9.4 8.7 Urine 02/09/19 Range/Units 18:22 Urine Color Yellow Urine Appearance Clear (Clear) Urine pH 5.0 (4.5-7.5) Ur Specific Lincoln 1.019 (1.000-1.030) Urine Protein 3+ H (Negative) Urine Glucose (UA) 2+ H (Negative)
[2019-02-11] MEDS: SODIUM CHLORIDE 0.9% 1000ML 1,000 ML IV SCH (04:50)
[2019-02-11] MEDS: HEPARIN SOD 5,000 UNIT/0.5 ML VIAL SQ SCH (06:14)
[2019-02-11 06:42] LABS: BUN Creatinine Ratio 23.2 (10-20); Calcium 8.7 mg/dl (8.5-10.1); Est GFR (African American) 27.5; Est GFR (Non-African American) 23.7; Magnesium 1.8 mg/dl (1.8-2.4); Potassium 4.6 mmol/L (3.5-5.1)
[2019-02-11 06:43] LABS: Phosphorus 3.4 mg/dl (2.5-4.9)
[2019-02-11 07:14] VITALS: BP 110/67; PULSE 66; TEMP 98.2; O2SAT 95
[2019-02-11] MEDS: INSULIN ASPART 100 UNITS/ML 3 ML PEN SC SCH ×2 (08:00→12:00)
[2019-02-11] MEDS ORDERED: INSULIN HUMAN NPH SC SCH (08:00)
[2019-02-11] MEDS: AMLODIPINE BESYLATE 5 MG TAB PO SCH (08:01)
[2019-02-11] MEDS: METOPROLOL TARTRATE 100 MG TAB PO SCH (08:01)
--- NOTE | 2019-02-11 08:21 | Pharmacy Report ---
Glycemic Control Progress Note - Date of Service February 11, 2019 - Scope Glycemic Pharmacist consulted for glycemic control to write orders per [facility] inpatient glycemic control protocol. - Objective Accuchecks BSG(last 24 hours):: 02/10/19 02/10/19 02/10/19 11:11 16:11 20:14 Glucose POC Glucose 159 H 84 127 H 02/11/19 02/11/19 02/11/19 03:48 05:54 07:23 Glucose 121 H POC Glucose 96 99 HbA1c:: Hemoglobin A1c 10.4 % (4.5-5.6) H 02/10/19 06:06 - Recent Pertinent Medications The patient is currently receiving: * Basal insulin: NPh 30 units BIDM * Correctional Insulin: Novolog Correction per scale ACHS Goal Range: Low 110 mg/dL - High 140 mg/dL Correction Factor: 10 mg/dL/unit * Prandial insulin: Per carb ratio of 1 unit per 3 grams CHO consumed - Outpatient Anti-Diabetic Meds NPH 52 units at midnight and noon Regular insulin 40 units TIDM - Assessment & Plan ASSESSMENT: * See progress note from 02/10/19 for more background info, in short: * Pt receiving SQ basal bolus insulin regimen for hyperglycemia secondary to baseline DM (outpatient regimen on hold) and resolving kidney function. * Patient is currently receiving an average of 91 units of insulin per day * 60 units of basal insulin * 31 units of prandial/correctional insulin * BSGs ranging 84 - 159 mg/dl over the past 24hrs * Changes needed to insulin regimen: * AM Fasting BSG = 96 mg/dl. This is below goal range for patient based on inpatient targets and co-morbidities. Therefore Basal insulin will be reduced by 20%. * Post-prandial BSGs trended downwards. Loosen both CF and CR. * Total daily dose = ~80 units. PLAN FOR INPATIENT GLYCEMIC CONTROL: * Decreasing NPH to 24 units SQ BIDM * LOOSENING correction factor to 12 mg/dl/unit * LOOSENING carb ratio to 1 unit per 5 grams CHO consumed * Continuing goal range to Low 110 mg/dL - High 140 mg/dL RECOMMENDATIONS FOR DISCHARGE: * see note from 02/10/19 Thank you.
--- NOTE | 2019-02-11 09:37 | Nephrology Progress Note ---
Date of Service February 11, 2019 Assessment & Plan (1) Acute on chronic renal failure: baseline creatinine 2.1-2.5, most recently 2.5 11/2018. Creatinine 3.4 on presentation but improved today to 2.7. GRIFFIN cause likely multifactorial > from passing stone, from volume depletion related to emesis/diarrhea prior to presentation. Favor prerenal process since he has responded to fluid res uscitation; urine sediment no different than outpatient studies. -strict I/O for now, including # of bm -daily bmp >>at d/c can resume starting tomorrow lasix 40 mg DAILY not 2 daily doses pending f/u labs -cont nsaid avoidance -reasonable from neph standpoint for d/c home; we will contact him w/ neph f/u in 4-6 wks & instructions on urorisk to be done in 1-2 wks; we will order repeat bmp to be done 7-10 days after d/c (2) Kidney stone: -will repeat 24 hr urorisk as OP -no indication at this time for urolog intervention; stone passed Subjective PT was d/c before I examined him; I did review and coordinate his care w/ Dr Cortez today Results & Data Vital Signs (Past 12 Hours) Vital Signs Temp Pulse Resp BP Pulse Ox 02/11/19 07:13 36.8 C 66 20 110/67 95 02/11/19 03:48 36.6 C 65 16 152/88 H 93 02/10/19 23:27 36.4 C L 67 20 147/82 H 94 Laboratory Results 02/09/19 18:22 02/11/19 05:54 (1) Acute on chronic renal failure Chronic kidney disease stage: stage 4 (severe)
--- NOTE | 2019-02-11 11:17 | Hospitalist Progress Note ---
Date of Service February 11, 2019 Assessment & Plan (1) Acute renal failure: Acute renal failure on CKD stage III-IV Multifactorial:possible obstructive uropathy, Medications, GI loses Baseline creatinine is 2.3-2.5 --CT ABD:Mild pelvocaliectasis of the left kidney and distention of the left ureter without evidence of an obstructing calculus. Given the associated mild inflammatory changes along the proximal left ureter, lungs favor a recently passed left renal calculus. No additional left renal calculus. Nonobstructing right renal calculus. Diverticulosis coli. No evidence of diverticulitis. --Received IV fluids --Cr:2.6 today --Plan to decrease Lasix to 40mg daily as per Nephrology recommendations upon discharge --Plan to resume lisinopril upon discharge --Appreciate Nephrology Input --Monitor renal function --Avoid nephrotoxic agents as able --Needs Urorisk, BMP done as outpatient --Needs follow up with Nephrology as outpatient DM II Usually on Novolin and Novolin R Hb A1C:10.4 Continue insulin therapy Appreciate pharmacy glycemic management Hypertension Blood pressure stable Held lisinopril, Lasix due to GRIFFIN Continue metoprolol, amlodipine H/O CVA Not on aspirin On Crestor at home Morbid obesity BMI:44 Counseling DVT Px: Heparin SQ Code Status Full Code Disposition Plan to discharge home today Subjective Patient is seen and examined at bedside Offers no complaints Eager to get discharged Cr back to near baseline Denies any chest pain, shortness of breath, dizziness, flank pain, hematuria, dysuria Discussed with Nephrology today Review of Systems Review of Systems: All systems reviewed & are unremarkable except as noted in HPI & below Physical Exam Physical Exam: Physical Exam: Vitals signs as noted above General Appearance:Morbidly Obese, no apparent distress Head: normocephalic, Atraumatic Eyes: normal inspection, EOMI Neck: supple, Trachea midline Respiratory/Chest: Normal breath sounds, CTA Cardiovascular: S1, S2, No murmur Abdomen/GI:Soft, Non tender, Bowel sounds present Extremities/Musculoskelatal:normal inspection, 1-2 + B/L LE edema Neurologic/Psych:AAOX3, grossly no focal neurological deficits Skin: normal color, warm Results & Data Vital Signs (Past 12 Hours) Vital Signs Temp Pulse Resp BP Pulse Ox 02/11/19 07:13 36.8 C 66 20 110/67 95 02/11/19 03:48 36.6 C 65 16 152/88 H 93 02/10/19 23:27 36.4 C L 67 20 147/82 H 94 Laboratory Results [facility] 02/11/19 05:54 Sodium 137 Potassium 4.6 Chloride 108 H Carbon Dioxide 23 BUN 61 H Creatinine 2.65 H D Glucose 121 H Calcium 8.7
--- NOTE | 2019-02-11 11:41 | Discharge Summary ---
Date of Service February 11, 2019 Admission HPI Per Admitting Provider Patient is a 62-year-old male with history of nephrolithiasis, CKD stage III-IV, diabetes type 2 with polyneuropathy, history of CVA, morbid obesity, Presenting with left flank pain since this afternoon. Patient follows with Dr. Enma Galdamez for CKD stage III-IV. He is also being followed for nephrolithiasis. This afternoon around 1 PM sharp intense left flank pain radiating to the left lower quadrant region. This was followed by multiple episodes of vomiting, 4 episodes as well as diarrhea x2 episodes. He called Dr. Galdamez's and was advised to proceed to the ER for evaluation. At the ER, CAT scan abdomen pelvis showed: IMPRESSION: 1. Mild pelvocaliectasis of the left kidney and distention of the left ureter without evidence of an obstructing calculus. Given the associated mild inflammatory changes along the proximal left ureter, lungs favor a recently passed left renal calculus. No additional left renal calculus. 2. Nonobstructing right renal calculus. 3. Diverticulosis coli. No evidence of diverticulitis. He was given IV Ofirmev, IV saline solution. On exam, the patient is sitting up in bedside chair, comfortable, not in distress. He states pain has resolved since IVF treatment was given. Denies nausea, abdominal pain, hematuria or dysuria, fevers or chills. No other symptoms Primary Care Provider: Ermias Zarate, Admission Exam Per Admitting Provider General- oriented x 3, not in distress, speaks in sentences with no effort or accessory muscle use Head- atraumatic Eyes- PERRL, EOMI, anicteric ENT- oropharynx clear Neck- supple, no JVD, no adenopathy, no thyromegaly; carotids +2/2, no bruits appreciated Lungs- clear to auscultation bilaterally, no rales/wheezes Heart- normal rate, regular rhythm; no murmur, no gallop, no rub appreciated Abdomen- normal bowel sounds, nondistended, soft, nontender, no masses or hepatosplenomegaly No CVA tenderness Extremities-positive grade 1 lower leg edema, no calf tenderness; peripheral pulses intact Neuro- alert, oriented x 3; CN 2-12 grossly intact; motor 5/5 bilaterally;sensation 100% on all extremities; no other gross focal neurologic deficits Skin- warm & dry Principal Diagnosis Acute renal failure Discharge Data Allergies Allergy/AdvReac Type Severity Reaction Status Date / Time lisinopril AdvReac Severe Cough Verified 02/09/19 19:19 Consultations 02/09/19 19:38 ED Decision to Admit Stat 02/09/19 21:44 Consult Nephrology Routine Procedures Performed CT ABD; 1. Mild pelvocaliectasis of the left kidney and distention of the left ureter without evidence of an obstructing calculus. Given the associated mild inflammatory changes along the proximal left ureter, lungs favor a recently passed left renal calculus. No additional left renal calculus. 2. Nonobstructing right renal calculus. 3. Diverticulosis coli. No evidence of diverticulitis. Ordered Studies 02/09/19 18:00 CT abd pelvis wo con Stat Hospital Course (1) Acute renal failure: Acute renal failure on CKD stage III-IV Multifactorial:possible obstructive uropathy, Medications, GI loses Baseline creatinine is 2.3-2.5 --CT ABD:Mild pelvocaliectasis of the left kidney and distention of the left ureter without evidence of an obstructing calculus. Given the associated mild inflammatory changes along the proximal left ureter, lungs favor a recently passed left renal calculus. No additional left renal calculus. Nonobstructing right renal calculus. Diverticulosis coli. No evidence of diverticulitis. --Received IV fluids --Cr:2.6 today --Plan to decrease Lasix to 40mg daily as per Nephrology recommendations upon discharge --Plan to resume lisinopril upon discharge --Appreciate Nephrology Input --Monitor renal function --Avoid nephrotoxic agents as able --Needs Urorisk, BMP done as outpatient --Needs follow up with Nephrology as outpatient DM II Usually on Novolin and Novolin R Hb A1C:10.4 Continue insulin therapy Appreciate pharmacy glycemic management Hypertension Blood pressure stable Held lisinopril, Lasix due to GRIFFIN Continue metoprolol, amlodipine H/O CVA Not on aspirin On Crestor at home Morbid obesity BMI:44 Counseling DVT Px: Heparin SQ Code Status Full Code Disposition Plan to discharge home today Total Time Total Time Spent Total Time Spent (In Minutes): 38 minutes Total Time Includes: Examination of the Patient, Discharge Planning, Medication Reconciliation, Communication With Other Providers and Other Discharge Plan Discharge Items Patient Disposition: Home - Self-Care Reason For Visit: ACUTE RENAL FAILURE ON CKD 4 Discharge Diagnosis: Acute renal failure Activity: Resume your previous activity Exercise/Sports: Gradually increase as tolerated Non-emergency contact: Primary Care Provider and [employer] Call non-emergency contact if: you have any medication questions, your symptoms worsen, your pain is not controlled, your pain is worsening, your pain is unusual for you, your pain is concerning for you and you have a fever Follow-up/Referrals: Ermias Zarate DO [Primary Care Provider] - Diet: Carb Consistent or DM2 and Heart Healthy Ambulatory Orders: Basic Metabolic Panel (Routine) Timeframe: 1 Week Location: Determined by Patient Ordered By: Cem Rubi Addtl Attending Provider Instructions: Follow-up with your primary care physician Dr. Zarate on February 14, 2019 at 11:05 AM Follow-up with your chore worker Dr. Galdamez on March 19, 2019 at 2:20 PM Your Lasix is decreased from 40 mg twice a day to 40 mg daily as per recommendations from your chore worker. Further recommendations based on your blood test as outpatient. Get blood test(basic metabolic panel, Urorisk )as outpatient as advised by your chore worker Seek immediate medical attention if your symptoms reoccur or worsen Pending Studies at Discharge: No Stand-Alone Forms: [employer], Smoking Cessation Medications and DC Order Prescriptions: Continued amlodipine [Norvasc] 10 mg tablet 10 mg PO DAILY RF: 0 Novolin R Regular U-100 Insuln 100 unit/mL solution 40 unit subcut TIDM RF: 0 Novolin N NPH U-100 Insulin 100 unit/mL suspension 52 unit subcut BID RF: 0 glucosamine-chondroitin [Osteo Bi-Flex] 250-200 mg Tablet 1 tab PO 2XWK RF: 0 cholecalciferol (vitamin D3) [Vitamin D3] 5,000 unit Tablet 5,000 unit PO DAILY RF: 0 Berberine 1 tab PO WK RF: 0 Crestor 5 mg PO DAILY RF: 0 metoprolol tartrate 100 mg Tablet 100 mg PO BID RF: 0 Changed furosemide [Lasix] 40 mg tablet 40 mg PO DAILY Qty: 0 RF: 0 Discharge Orders: Discharge Order (Routine); Ordered 02/11/19 Ordered By: Cem Rubi Admission Data Admit Date/Time: 02/09/19 20:34 Attending Provider: Cem Rubi Admit Provider: John Rogers Primary Care Provider: Ermias Zarate Other Providers: Arnoldo Hernandez ; Enma Nguyen ; John Rogers Other Interventions: Discharge Summary Assessment (RN) Last Done: 02/11/19 11:47 DC Date/Time DO NOT enter until pt leaves facility: 02/11/19 12:18
== END 2019-02-11 12:18 | disposition home or self-care (01) | DRG 683 ==
LOC: ED 17:20 → SUATTDRO 20:34 → 2S 20:34

== ENCOUNTER 2019-12-23 18:24 | Inpatient (IN) ==
[2019-12-23] MEDS ORDERED: ASPIRIN CHEW 324 MG PO STA (18:54)
[2019-12-23] MEDS ORDERED: NITROGLYCERIN SL 0.4 MG/TAB TAB SL STA (18:55)
[2019-12-23 19:13] LABS: Basophils # (auto) 0.02 K/uL (0-0.2); Basophils % (auto) 0.2 %; Eosinophils # (auto) 0.31 K/uL (0-0.5); Eosinophils % (auto) 3.7 %; Hematocrit (blood only) 38.3 % (42-52); Hemoglobin 13.3 g/dL (14.0-18.0); Immature Granulocytes # (auto) 0.04 K/uL (0.00-0.02); Immature Granulocytes % (auto) 0.5 %; Lymphocytes # (auto) 1.52 K/uL (1.2-3.4); Lymphocytes % (auto) 18.4 %; Mean Corpuscular Hemoglobin 30.3 pg (25-34); Mean Corpuscular Hgb Conc 34.7 g/dL (32-36); Mean Corpuscular Volume 87.2 fL (80-100); Mean Platelet Volume 10.5 fL (7.4-10.4); Monocytes # (auto) 0.82 K/uL (0.11-0.59); Monocytes % (auto) 9.9 %; Neutrophils # (auto) 5.56 K/uL (1.4-6.5); Neutrophils % (auto) 67.3 %; Platelet Count 201 K/uL (130-400); RDW Coefficient of Variation 12.9 % (11.5-14.5); RDW Standard Deviation 41.6 fL (36.4-46.3); Red Blood Count 4.39 M/uL (4.7-6.1); White Blood Count 8.27 K/uL (4.8-10.8)
--- NOTE | 2019-12-23 19:25 | XRay Report ---
XR chest 2V PA/lateral HISTORY: Atypical Chest Pain COMPARISON: Chest 10/25/2013. FINDINGS: The lungs are clear. There are low lung volumes. The heart remains mildly enlarged. No pleu ral effusions. No pneumothorax. A few anterior linear densities favor scarring or atelectasis. Right AC joint arthrosis and fragmentation remains unchanged. IMPRESSION: No significant change compared to the prior study. No acute process. Stable cardiomegaly. ACT 112: Negative or not required by law. Electronically signed by: Brendan Rider M.D. 12/23/2019 7:24 PM
[2019-12-23 19:26] LABS: Partial Thromboplastin Time 27.7 Seconds (21.0-31.0); Prothrombin Time 10.5 Seconds (9.0-12.0)
[2019-12-23 19:30] LABS: BUN Creatinine Ratio 19.6 (10-20); Blood Urea Nitrogen 56 mg/dl (7-18); Calcium 8.9 mg/dl (8.5-10.1); Carbon Dioxide 27 mmol/L (21-32); Chloride 97 mmol/L (98-107); Est GFR (African American) 24.8; Est GFR (Non-African American) 21.4; Glucose 237 mg/dl (70-99); Lipase 179 U/L (73-393); Potassium 4.6 mmol/L (3.5-5.1); Sodium 132 mmol/L (136-145)
[2019-12-23] MEDS ORDERED: NITROGLYCERIN 2% OINTMENT 30GM TUBE EXT STA (20:17)
[2019-12-23] MEDS ORDERED: HEPARIN SOD 5,000 UNIT/0.5 ML VIAL ONE (20:43)
[2019-12-23] MEDS: HEPARIN SODIUM/DEXTROSE 25,000 UNITS/500 ML BAG IV SCH (20:49)
--- NOTE | 2019-12-23 21:26 | Emergency Department Note ---
History of Present Illness General Chief Complaint: Chest Pain Stated Complaint: CHEST PAIN FOR LAST HOUR Time Seen by Provider: 12/23/19 18:32 History of Present Illness Provider Complaint: chest pain Onset (ago): hour(s) 1 Duration: intermittent Onset: during rest Pain Radiation: none Maximum Pain Intensity: 9 Current Pain Intensity: 4 Quality: + aching Relieved By: + other (Aspirin and home oxycodone) Exacerbated By: + nothing Context: no recent illness, no recent surgery, no recent travel, no trauma/injury and no history of DVT/PE Associated symptoms: no syncope, no palpitations, no fever, no cough and no leg swelling Home Medications Home Medications Medication Instructions Recorded Confirmed Type Novolin N NPH U-100 Insulin 45 unit SUBCUT BID 02/09/19 12/23/19 History Novolin R Regular U-100 Insuln 30 unit SUBCUT AC 02/09/19 12/23/19 History amlodipine [Norvasc] 10 mg PO DAILY 02/09/19 12/23/19 History glucosamine-chondroitin [Osteo 1 tab PO DAILY 02/09/19 12/23/19 History Bi-Flex] metoprolol tartrate 100 mg PO DAILY 02/10/19 12/23/19 History furosemide [Lasix] 40 mg PO QAM 12/23/19 12/23/19 History multivitamin 1 tab PO QAM 12/23/19 12/23/19 History oxycodone 5 mg PO Q6H PRN 12/23/19 12/23/19 History Allergies Allergy/AdvReac Type Severity Reaction Status Date / Time lisinopril AdvReac Severe Cough Verified 12/23/19 20:13 Past Med/Surg History Medical History CKD (chronic kidney disease), stage III HLD (hyperlipidemia) HTN (hypertension) IDDM (insulin dependent diabetes mellitus) Kidney stone Obesity Surgical History H/O knee surgery History of tonsillectomy S/P surgical manipulation of ankle joint Social History Smoking Status: Never smoker Second Hand Exposure: No; Do You Dip or Chew Tobacco: No; Hx Alcohol Use: No Hx Substance Use: No Preferred Language: Jordanian Communication Ability: Effective Business Change Manager Required: No Beliefs That Will Affect Care: None marital status: Current Living Situation: Alone current occupational status: retired Other Information That Helps Us Care for You: No Feels Safe at Home: Yes Safety Concerns: Feels Safe At This Time Review of Systems A total of 10 systems reviewed and were otherwise negative Physical Exam Vital Signs Vital Signs - 24 hr 12/23/19 18:26 12/23/19 18:38 12/23/19 18:41 Temperature 36.3 C L Temperature Source Oral Pulse Rate 64 67 Pulse Rate [Apical] 67 Pulse Rate from SpO2 Sensor 68 Respiratory Rate 20 23 19 Respiratory Effort / Characteristics Non-Labored Spontaneous Non-Labored Spontaneous Respiratory Depth Normal Normal Blood Pressure 146/89 H 138/76 Blood Pressure [Right Arm] 138/76 Blood Pressure Mean 108 97 Blood Pressure Mean [Right Arm] 96 Blood Pressure Position Sitting Pulse Oximetry 93 92 91 Oxygen Delivery Method Room Air Room Air Oxygen Flow Rate Sepsis Recent Fever Within 48 Hours No Sepsis New/Unexplained Change in Mental Status No Sepsis Action Taken by Nursing No Action Required 12/23/19 18:57 12/23/19 18:59 12/23/19 19:00 Temperature Temperature Source Pulse Rate 67 66 Pulse Rate [Apical] Pulse Rate from SpO2 Sensor 66 66 Respiratory Rate 20 20 Respiratory Effort / Characteristics Respiratory Depth Blood Pressure 147/88 H 132/79 Blood Pressure [Right Arm] Blood Pressure Mean 102 89 Blood Pressure Mean [Right Arm] Blood Pressure Position Pulse Oximetry 94 91 90 Oxygen Delivery Method Room Air Room Air Oxygen Flow Rate Sepsis Recent Fever Within 48 Hours Sepsis New/Unexplained Change in Mental Status Sepsis Action Taken by Nursing 12/23/19 19:05 12/23/19 19:17 12/23/19 19:20 Temperature Temperature Source Pulse Rate 66 Pulse Rate [Apical] Pulse Rate from SpO2 Sensor 64 Respiratory Rate 20 Respiratory Effort / Characteristics Respiratory Depth Blood Pressure 137/75 129/70 Blood Pressure [Right Arm] Blood Pressure Mean 101 92 Blood Pressure Mean [Right Arm] Blood Pressure Position Pulse Oximetry 93 90 Oxygen Delivery Method Nasal Cannula Oxygen Flow Rate 4 Sepsis Recent Fever Within 48 Hours Sepsis New/Unexplained Change in Mental Status Sepsis Action Taken by Nursing 12/23/19 19:40 12/23/19 20:01 12/23/19 20:15 Temperature Temperature Source Pulse Rate 61 68 70 Pulse Rate [Apical] Pulse Rate from SpO2 Sensor 62 67 69 Respiratory Rate 20 21 23 Respiratory Effort / Characteristics Respiratory Depth Blood Pressure 117/71 121/64 Blood Pressure [Right Arm] Blood Pressure Mean 80 74 Blood Pressure Mean [Right Arm] Blood Pressure Position Pulse Oximetry 96 95 94 Oxygen Delivery Method Oxygen Flow Rate 3 2 2 Sepsis Recent Fever Within 48 Hours Sepsis New/Unexplained Change in Mental Status Sepsis Action Taken by Nursing 12/23/19 20:30 12/23/19 20:45 12/23/19 21:00 Temperature Temperature Source Pulse Rate 69 61 71 Pulse Rate [Apical] Pulse Rate from SpO2 Sensor 64 63 74 Respiratory Rate 20 20 20 Respiratory Effort / Characteristics Respiratory Depth Blood Pressure 135/74 120/72 128/73 Blood Pressure [Right Arm] Blood Pressure Mean 84 86 94 Blood Pressure Mean [Right Arm] Blood Pressure Position Pulse Oximetry 95 94 93 Oxygen Delivery Method Oxygen Flow Rate 2 2 2 Sepsis Recent Fever Within 48 Hours Sepsis New/Unexplained Change in Mental Status Sepsis Action Taken by Nursing 12/23/19 21:15 Temperature Temperature Source Pulse Rate 70 Pulse Rate [Apical] Pulse Rate from SpO2 Sensor 72 Respiratory Rate 22 Respiratory Effort / Characteristics Respiratory Depth Blood Pressure 123/69 Blood Pressure [Right Arm] Blood Pressure Mean 79 Blood Pressure Mean [Right Arm] Blood Pressure Position Pulse Oximetry 91 Oxygen Delivery Method Oxygen Flow Rate 2 Sepsis Recent Fever Within 48 Hours Sepsis New/Unexplained Change in Mental Status Sepsis Action Taken by Nursing Physical Exam GENERAL: Patient wearing a confederate flag facemask. He is oriented to person, place, and time. He appears well-developed and well-nourished. He does not appear distressed. HENT: Exam performed. - Head: Normocephalic and atraumatic. - Right Ear: External ear normal. No mastoid tenderness. - Left Ear: External ear normal. No mastoid tenderness. - Mouth/Throat: The oropharynx is clear and moist. No trismus in the jaw. No dental abscesses or uvula swelling. No oropharyngeal exudate or tonsillar abscesses. EYES: Conjunctivae and EOM are normal. Pupils are equal, round, and reactive to light. Right eye exhibits no discharge. Left eye exhibits no discharge. No scleral icterus. NECK: Normal range of motion. Neck supple. No JVD present. No spinous process tenderness present. No carotid bruit present. No rigidity. No tracheal deviation and normal range of motion present. No Brudzinski's sign and no Kernig's sign noted. CV: Normal rate, regular rhythm, normal heart sounds and intact distal pulses. There is no peripheral edema. Palpable radial pulses bue. PULM/CHEST: Effort normal and breath sounds normal. No respiratory distress. No stridor. He has no wheezes. He has no rales. - Chest Wall: He exhibits no tenderness. ABD: The abdomen is soft and morbidly obese. Bowel sounds are normal. He has no distension. No mass is present. There is no tenderness. There is no rebound, no guarding, no López's sign and no tenderness at McBurney's point. Rovsig negative. MUSC/SKEL: Normal range of motion. There is no peripheral edema, tenderness or deformity. LYMPH: No cervical adenopathy. NEURO: He is alert and oriented to person, place, and time. He has normal strength. No cranial nerve deficit or sensory deficit. Coordination and gait normal. GCS eye subscore is 4. GCS verbal subscore is 5. GCS motor subscore is 6. Cerebellar tests wnl. SKIN: Skin is warm and dry. He is not diaphoretic. PSYCH: He has a normal mood and affect. Behavior is normal. Judgment and thought content normal. Course Course 1831: The patient was evaluated in room B10. A complete history and physical exam was performed. Cardiac monitoring: An order was placed for continuous cardiac monitoring. The monitor shows a rate of 70 with sinus rhythm 1915: Patient dropped to pulse oximetry 88% on room air. Patient was started on supplemental oxygen via nasal cannula. 2030: Vital signs stable on supplemental oxygen via nasal cannula. Labs show a creatinine of 2.87. Troponin is elevated at 2.1. Patient is stating that his chest pain is better status post nitroglycerin. The troponin elevation could be due to the patient's CKD or could be due to underlying CAD. PE is also on the differential given the patient's hypoxia in addition to the chief complaint of chest pain. We are unable to obtain CTA of the chest to rule out PE given the patient's CKD and elevated creatinine level. Patient will be started on heparin for possible PE and NSTEMI. Discussed with Dr. John allen who had no objection to heparin at this time. Discussed with Dr. Bustamante who is in agreement with the plan. Administered Medications Heparin Sodium/Dextrose (Heparin Sodium/Dextrose) 25,000 units in 500 mls @ 37 mls/hr IV .[id number] [facility]; Protocol Stop: 01/22/20 20:29 Last Admin: 12/23/19 20:49 Dose: 1,850 units/hr, 37 mls/hr Documented by: [id number] Cosigned by: [id number] Discontinued Medications Aspirin (Aspirin Chew 324 Mg) 324 mg PO NOW STA Stop: 12/23/19 18:55 Last Admin: 12/23/19 19:05 Dose: Not Given Documented by: [id number] Heparin Sodium (Porcine) (Heparin Sod 5,000 Unit/0.5 Ml Vial) Confirm Administered Dose 10,000 units .ROUTE .[facility] Stop: 12/23/19 20:44 Last Admin: 12/23/19 20:52 Dose: 8,000 units Documented by: [id number] Cosigned by: [id number] Heparin Sodium/Dextrose (Heparin Iv Standard With Bolus) 1 ea IV NOW STA; Protocol Stop: 12/23/19 20:17 Last Admin: 12/23/19 23:18 Dose: Not Given Documented by: [id number] Nitroglycerin (Nitroglycerin Sl 0.4 Mg/Tab Tab) 0.4 mg SL NOW STA Stop: 12/23/19 18:56 Last Admin: 12/23/19 19:04 Dose: 0.4 mg Documented by: [id number] Nitroglycerin (Nitroglycerin 2% Ointment 30gm Tube) 1 inch EXT NOW STA Stop: 12/23/19 20:18 Last Admin: 12/23/19 20:30 Dose: 1 inch Documented by: [id number] Medical Decision Making Laboratory Data Result diagrams: 12/23/19 18:50 12/23/19 18:50 Labs: Lab Results 12/23/19 12/23/19 12/23/19 Range/Units 18:50 18:50 18:50 WBC 8.27 (4.8-10.8) K/uL RBC 4.39 L (4.7-6.1) M/uL Hgb 13.3 L (14.0-18.0) g/dL Hct 38.3 L (42-52) % MCV 87.2 (80-100) fL MCH 30.3 (25-34) pg MCHC 34.7 (32-36) g/dL RDW Std Deviation 41.6 (36.4-46.3) fL RDW Coeff of Nasim 12.9 (11.5-14.5) % Plt Count 201 (130-400) K/uL MPV 10.5 H (7.4-10.4) fL Immature Gran % (Auto) 0.5 % Neut % (Auto) 67.3 % Lymph % (Auto) 18.4 % Bucks % (Auto) 9.9 % Eos % (Auto) 3.7 % Baso % (Auto) 0.2 % Neut # (Auto) 5.56 (1.4-6.5) K/uL Lymph # (Auto) 1.52 (1.2-3.4) K/uL Bucks # (Auto) 0.82 H (0.11-0.59) K/uL Eos # (Auto) 0.31 (0-0.5) K/uL Baso # (Auto) 0.02 (0-0.2) K/uL Immature Gran # (Auto) 0.04 H (0.00-0.02) K/uL PT 10.5 (9.0-12.0) Seconds INR 1.0 (0.9-1.1) APTT 27.7 (21.0-31.0) Seconds PTT Ratio 1.0 Sodium 132 L (136-145) mmol/L Potassium 4.6 (3.5-5.1) mmol/L Chloride 97 L (98-107) mmol/L Carbon Dioxide 27 (21-32) mmol/L Anion Gap 8.0 (3-11) BUN 56 H (7-18) mg/dl Creatinine 2.87 H (0.6-1.4) mg/dl Est Cr Clr Drug Dosing Not Reportable Est GFR ( Amer) 24.8 Est GFR (Non-Af Amer) 21.4 BUN/Creatinine Ratio 19.6 (10-20) Glucose 237 H (70-99) mg/dl POC Glucose (70-99) mg/dl Calcium 8.9 (8.5-10.1) mg/dl Troponin I 2.100 H* (0-0.045) ng/ml Lipase 179 (73-393) U/L 12/22/ Range/Units 20:20 WBC (4.8-10.8) K/uL RBC (4.7-6.1) M/uL Hgb (14.0-18.0) g/dL Hct (42-52) % MCV (80-100) fL MCH (25-34) pg MCHC (32-36) g/dL RDW Std Deviation (36.4-46.3) fL RDW Coeff of Nasim (11.5-14.5) % Plt Count (130-400) K/uL MPV (7.4-10.4) fL Immature Gran % (Auto) % Neut % (Auto) % Lymph % (Auto) % Bucks % (Auto) % Eos % (Auto) % Baso % (Auto) % Neut # (Auto) (1.4-6.5) K/uL Lymph # (Auto) (1.2-3.4) K/uL Bucks # (Auto) (0.11-0.59) K/uL Eos # (Auto) (0-0.5) K/uL Baso # (Auto) (0-0.2) K/uL Immature Gran # (Auto) (0.00-0.02) K/uL PT (9.0-12.0) Seconds INR (0.9-1.1) APTT (21.0-31.0) Seconds PTT Ratio Sodium (136-145) mmol/L Potassium (3.5-5.1) mmol/L Chloride (98-107) mmol/L Carbon Dioxide (21-32) mmol/L Anion Gap (3-11) BUN (7-18) mg/dl Creatinine (0.6-1.4) mg/dl Est Cr Clr Drug Dosing Est GFR ( Amer) Est GFR (Non-Af Amer) BUN/Creatinine Ratio (10-20) Glucose (70-99) mg/dl POC Glucose 210 H (70-99) mg/dl Calcium (8.5-10.1) mg/dl Troponin I (0-0.045) ng/ml Lipase (73-393) U/L Imaging Data Chest x-ray: Radiologist's impression: XR chest 2V PA/lateral HISTORY: Atypical Chest Pain COMPARISON: Chest 10/25/2013. FINDINGS: The lungs are clear. There are low lung volumes. The heart remains mildly enlarged. No pleural effusions. No pneumothorax. A few anterior linear densities favor scarring or atelectasis. Right AC joint arthrosis and fragmentation remains unchanged. IMPRESSION: No significant change compared to the prior study. No acute process. Stable cardiomegaly. ACT 112: Negative or not required by law. Electronically signed by: Brendan Rider M.D. 12/23/2019 7:24 PM Dictated: 12/23/191920 Transcribed: 12/23/191920 ECG Data Additional Comments: EKG 1 at 183: Sinus rhythm with rate of 67. First-degree AV block present. AL interval 264. QRS 158. QTc 454. Bifascicular block present. No ST elevation or ST depression. T wave inversions in lead II, III and aVF. When compared to the EKG in May 2016 the T wave inversions are new. EKG 2 at 1853: Sinus rhythm with a rate of 69. First-degree AV block present. AL interval 250. QRS 158. QTc 465. Bifascicular block present. No ST elevation or ST depression. T wave inversion in leads II, III and aVF. [facility] Narrative 183: The patient was evaluated in room B10. A complete history and physical exam was performed. Cardiac monitoring: An order was placed for continuous cardiac monitoring. The monitor shows a rate of 70 with sinus rhythm 1914: Patient dropped to pulse oximetry 88% on room air. Patient was started on supplemental oxygen via nasal cannula. 2029: Vital signs stable on supplemental oxygen via nasal cannula. Labs show a creatinine of 2.87. Troponin is elevated at 2.1. Patient is stating that his chest pain is better status post nitroglycerin. The troponin elevation could be due to the patient's CKD or could be due to underlying CAD. PE is also on the differential given the patient's hypoxia in addition to the chief complaint of chest pain. We are unable to obtain CTA of the chest to rule out PE given the patient's CKD and elevated creatinine level. Patient will be started on heparin for possible PE and NSTEMI. Discussed with Dr. John allen who had no objection to heparin at this time. Discussed with Dr. Bustamante who is in agree ment with the plan. Impression & Plan Hypoxia, Chest pain, Elevated troponin Critical Care Time Critical Care Time: Yes Total Critical Care Time: 69 I have personally spent greater than 69 minutes of critical care time in the direct management of this patient. This includes bedside care, interpretation of diagnostic studies, and testing, discussion with consultants, patient, and family members, and other required patient management activities. This 69 minutes is in excess of all separately billable procedures. Discharge Plan Visit Data Chief Complaint: Chest Pain Stated Complaint: CHEST PAIN FOR LAST HOUR ED Provider: Conner Patel Discharge Problem: Hypoxia, Chest pain, Elevated troponin Patient Disposition: Admitted As Inpatient Discharge Instructions Interventions: ED Discharge Assessment Last Done: 12/23/19 21:56 Discharge Problem: Chest pain Qualifiers: Chest pain type: unspecified Qualified Code(s): R07.9 - Chest pain, unspecified
[2019-12-23] MEDS ORDERED: ACETAMINOPHEN 325 MG TAB PO PRN (22:17)
[2019-12-23] MEDS ORDERED: NITROGLYCERIN SL 0.4 MG/TAB TAB SL PRN (22:17)
[2019-12-23] MEDS ORDERED: ONDANSETRON INJ 2 MG/ML 2 ML VIAL IV PRN (22:17)
[2019-12-23] MEDS ORDERED: MoRPHine SULFATE 2 MG/ML CARP IV PRN (22:17)
[2019-12-23] MEDS ORDERED: GLUCOSE 40% GEL 15 GM TUBE PO PRN (22:30)
[2019-12-23] MEDS ORDERED: DEXTROSE 50% 50 ML SYRINGE IV PRN (22:30)
[2019-12-23] MEDS ORDERED: CARBOHYDRATES FOR HYPOGLYCEMIA PO PRN (22:30)
[2019-12-23] MEDS ORDERED: GLUCAGON FOR INJ 1 MG VIAL SQ PRN (22:30)
[2019-12-23] MEDS ORDERED: GLUCOSE 10 TABS/TUBE PO PRN (22:30)
[2019-12-23] MEDS: INSULIN HUMAN NPH SC SCH (23:21)
--- NOTE | 2019-12-24 00:34 | History and Physical Report ---
DATE OF ADMISSION: 12/23/2019 CHIEF COMPLAINT: Chest pain. HISTORY OF PRESENT ILLNESS: This is a 69-year-old male with past medical history significant for type 2 diabetes, hyperlipidemia, history of stroke in 2014, hypertension, morbid obesity, atherosclerotic cardiovascular disease, chronic kidney disease stage III to IV, who lives alone, mostly uses electric wheelchair, but the patient says he can ambulate for 50 yards, but not very active because of his neuropathy. He comes because of chest pain. The patient states since June he is having pain in his right hand and arm and also right shoulder. He is taking oxycodone for that. Orthopedics advised for surgical treatment of right cubital tunnel syndrome, but is currently held due to uncontrolled diabetes and the patient says is going to have the procedure soon, but last 4 days he is having chest pain, sharp, achy pain radiating to his back of the head and neck. Initially thought it could be coming from his cervical spine or probably shoulder, but he is getting it couple of times every day. He generally is not active, not sure if activity makes it worse. When it comes it is severe. So he got worried and came to the ER today. In the ER, his EKG shows some ST changes and troponin was 2.1. He was also somewhat hypoxic at 88% on room air and saturating okay on 2 liters. Somewhat shaky. ER physician talked to cardiology and initiated on IV heparin. The patient received nitroglycerin, aspirin. Currently, pain is resolved. He is hungry and he wants to eat something. Denies any shortness of breath. Denies any cough. Has some headache. No dizziness, no blurred vision, no earache, no runny nose, no sore throat, no loss of sense of smell or taste. No dysphagia. Otherwise, appetite is okay. No exposure to any COVID patients. No nausea, no abdominal pain. Somewhat constipated from the pain medications. He had a small bowel movement earlier in the morning today. Denies any blood in stools. Normal bladder movements. No hematuria. Has chronic swelling in the legs. No rash, no fevers. ALLERGIES: LISINOPRIL. PAST MEDICAL HISTORY: As mentioned above. PAST SURGICAL HISTORY: Ankle arthroscopy and debridement, colonoscopy, injection of the right eye, removal of the cataract lens, tonsillectomy, adenoidectomy. MEDICATIONS: The patient is on oxycodone IR 5 mg p.o. q. 6 hours p.r.n. pain, amlodipine 10 mg p.o. daily, Lasix 40 mg p.o. daily, Lopressor supposed to be 100 mg b.i.d., but patient takes only once daily, vitamin D 5000 units p.o. daily, Novolin R 38 units with every meal, Novolin N 45 units b.i.d. FAMILY HISTORY: Significant for father had diabetes and heart disorder. Mother has glaucoma, gastrointestinal disorder. SOCIAL HISTORY: Currently lives alone. Daughter lives in the town. No smoking. Alcohol minimal. No drug use. REVIEW OF SYSTEMS: As per HPI. Rest of review of systems negative. PHYSICAL EXAMINATION: GENERAL: The patient is morbidly obese, currently not in acute distress, somewhat shaky. VITAL SIGNS: Temperature 36.3, pulse 70, respiratory rate 22, blood pressure 123/69, oxygen 88% on room air, 91% on nasal cannula. HEENT: Pupils equal, round, reactive to light. NECK: No JVD, no carotid bruits seen. Oral mucosa dry. CARDIOVASCULAR: S1, S2 heard, regular rate and rhythm, no murmur, no gallop. RESPIRATORY SYSTEM: Normal AP diameter. No accessory muscle use. No wheezing, no crackles. ABDOMEN: Soft, bowel sounds present, nontender. No distention. CENTRAL NERVOUS SYSTEM: Cranial nerves II-XII grossly intact. Nonfocal. EXTREMITIES: Bilateral lower extremity +2 edema present, no erythema seen. LABORATORY DATA: WBC 8.2, hemoglobin 13.3, hematocrit 38.3, platelets 201, PT 10.5, INR 1, APTT 27.7. Sodium 132, potassium 4.6, chloride 97, CO2 of 27, BUN 56, creatinine 2.87, glucose 237, calcium 8.9. Troponin 1 of 2.1, lipase 179. IMAGING DATA: Chest x-ray, no significant change compared to prior study, no acute process, stable cardiomegaly. EKG: Sinus rhythm with first-degree AV block at a rate of 69, right bundle-branch block, left posterior fascicular block, T-wave inversions in the lateral leads, Q-waves in inferior leads. ASSESSMENT AND PLAN: This is a 69-year-old male who presents with chest pain, non-ST elevated myocardial infarction. 1. Chest pain going on for last 4 days, on and off. NSTEMI. Troponin is elevated at 2.1. EKG shows s T-wave inversions in lateral leads, Q-waves in inferior leads, but currently chest pain free. Received nitro in the ER. Cardiology notified by ER. Will start on IV heparin. Will follow serial enzymes, echocardiogram. Will keep n.p.o. after midnight. Closely monitor in tele floor. Continue aspirin and Lopressor. Will follow the lipid profile and will start him on statin. 2. Hypoxia, was 88% on room air. Etiology unclear. The patient was slightly shaky, it could be hyperventilation. Will get an ABG. Will continue oxygen supplementation. Once patient is stable and ACS ruled out, may need VQ scan to rule out any pulmonary embolism. Currently getting heparin and currently saturating fine. Seems stable and also will follow echocardiogram. 3. History of hypertension. Continue his home amlodipine. The patient is supposed to be on metoprolol 100 mg b.i.d., but he is taking only once daily because it was causing diarrhea to him and his blood pressure is running okay at home. We will give 100 mg b.i.d. in the hospital and may need to adjust the medications. 4. Diabetes. He is on Novolin N 45 units b.i.d. and Novolin R 30 units a.c. Currently n.p.o. after midnight, so we will cut back on Novolin N to [address] on sliding scale. Follow HbA1c levels. Follow the blood sugars in the hospital. 5. Chronic right shoulder pain and right arm and hand pain. Follows with orthopedics. Currently on oxycodone which will be continued. 6. Chronic kidney disease stage III/IV. Baseline creatinine around 2.3 to 2.5, currently with creatinine of 2.8. We will follow the repeat labs in the a.m. 7. Hyponatremia with sodium of 132. We will follow the repeat labs in a.m. 8. History of cerebrovascular accident. The patient had a transient cerebrovascular accident in 2013 with transient diplopia. Mild right facial numbness and mild dystaxia to the right as per the neurology notes from 2017. Most of it is resolved except for mildly dystaxia, but currently the patient is wheelchair bound because of his neuropathy. 9. Lower extremity edema, possibly from chronic kidney disease. Will also follow the echo. Continue home Lasix. 10. Morbid obesity, needs counseling, may need sleep study as outpatient. 11. Deep venous thrombosis prophylaxis. Currently getting IV heparin. DISPOSITION: Closely monitor in the tele floor. Level 1 full code. Expect to discharge home and follow with his family doctor. PT and OT prior to discharge. LUZ MARINA
[2019-12-24] MEDS: OXYCODONE HCL IR 5 MG TAB (IMMEDIATE RELEASE) PO PRN ×2 (01:22→06:25)
[2019-12-24 04:22] LABS: Basophils # (auto) 0.02 K/uL (0-0.2); Basophils % (auto) 0.2 %; Eosinophils # (auto) 0.39 K/uL (0-0.5); Eosinophils % (auto) 3.6 %; Hematocrit (blood only) 38.1 % (42-52); Hemoglobin 13.2 g/dL (14.0-18.0); Immature Granulocytes # (auto) 0.04 K/uL (0.00-0.02); Immature Granulocytes % (auto) 0.4 %; Lymphocytes % (auto) 23.1 %; Mean Corpuscular Hemoglobin 30.1 pg (25-34); Mean Corpuscular Hgb Conc 34.6 g/dL (32-36); Mean Platelet Volume 10.4 fL (7.4-10.4); Monocytes # (auto) 0.96 K/uL (0.11-0.59); Monocytes % (auto) 8.9 %; Neutrophils # (auto) 6.91 K/uL (1.4-6.5); Neutrophils % (auto) 63.8 %; Platelet Count 199 K/uL (130-400); RDW Coefficient of Variation 12.8 % (11.5-14.5); RDW Standard Deviation 41.2 fL (36.4-46.3); Red Blood Count 4.38 M/uL (4.7-6.1); White Blood Count 10.82 K/uL (4.8-10.8)
[2019-12-24 04:45] LABS: Partial Thromboplastin Ratio > 5.0
[2019-12-24 04:53] LABS: BUN Creatinine Ratio 20.1 (10-20); Calcium 8.8 mg/dl (8.5-10.1); Creatinine Clr Calc Pharmacy 35.4 ml/min; Est GFR (African American) 25.6; Est GFR (Non-African American) 22.1; Magnesium 1.9 mg/dl (1.8-2.4); Potassium 4.3 mmol/L (3.5-5.1)
[2019-12-24 04:54] LABS: Partial Thromboplastin Time > 139.0 Seconds (21.0-31.0)
[2019-12-24 05:07] LABS: Troponin I 15.9 ng/ml (0-0.045)
[2019-12-24 06:22] LABS: Estimated Average Glucose 255 mg/dl; Hemoglobin A1C 10.5 % (4.5-5.6)
[2019-12-24 06:29] LABS: Partial Thromboplastin Ratio 3.7
[2019-12-24 06:33] LABS: Partial Thromboplastin Time 101.9 Seconds (21.0-31.0)
[2019-12-24 08:04] LABS: Partial Thromboplastin Ratio 1.9
[2019-12-24 08:05] LABS: Partial Thromboplastin Time 52.1 Seconds (21.0-31.0)
[2019-12-24] MEDS: INSULIN ASPART 100 UNITS/ML 3 ML PEN SC SCH ×4 (08:17→20:29)
[2019-12-24] MEDS: METOPROLOL TARTRATE 100 MG TAB PO SCH ×2 (08:19→20:29)
[2019-12-24] MEDS ORDERED: AMLODIPINE BESYLATE 5 MG TAB PO SCH (09:00)
[2019-12-24] MEDS ORDERED: ASPIRIN 81 MG ECTAB PO SCH (09:00)
[2019-12-24] MEDS ORDERED: NON-FORMULARY MEDICATION (Glucosamine-Chondroitin [Osteo Bi-Flex] 1 TAB) PO SCH (09:00)
[2019-12-24] MEDS ORDERED: MULTIVITAMIN TAB PO SCH (09:00)
[2019-12-24] MEDS ORDERED: ATORVASTATIN 40 MG TAB PO SCH (09:00)
[2019-12-24] MEDS ORDERED: FUROSEMIDE 40 MG TAB PO SCH (09:00)
[2019-12-24] MEDS: INSULIN HUMAN NPH SC SCH ×2 (09:10→21:16)
--- NOTE | 2019-12-24 09:24 | Electrocardiogram Report ---
Test Reason : Blood Pressure : / mmHG Vent. Rate : 067 BPM Atrial Rate : 067 BPM P-R Int : 264 ms QRS Dur : 158 ms QT Int : 430 ms P-R-T Axes : 040 023 -69 degrees QTc Int : 454 ms Sinus rhythm with 1st degree A-V block Right bundle branch block Inferior infarct , age undetermined T wave abnormality, consider lateral ischemia Abnormal ECG When compared with ECG of 23-MAY-2016 07:43, Right bundle branch block is now Present QRS voltage has increased Confirmed by Sal Zaman ([id number]) on 12/24/2019 9:23:32 AM Referred By: REFERRED SELF Confirmed By:Sal Zaman
--- NOTE | 2019-12-24 09:35 | Electrocardiogram Report ---
Test Reason : Blood Pressure : / mmHG Vent. Rate : 062 BPM Atrial Rate : 062 BPM P-R Int : 258 ms QRS Dur : 152 ms QT Int : 446 ms P-R-T Axes : 049 -43 -81 degrees QTc Int : 452 ms Sinus rhythm with 1st degree A-V block Left axis deviation Right bundle branch block Inferior infarct (cited on or before 23-DEC-2019) T wave abnormality, consider lateral ischemia Abnormal ECG When compared with ECG of 23-DEC-2019 18:54, (unconfirmed) Left posterior fascicular block is no longer Present T wave inversion now evident in Anterior leads Confirmed by Sal Zaman ([id number]) on 12/24/2019 9:35:22 AM Referred By: REFERRED SELF Confirmed By:Sal Zaman
--- NOTE | 2019-12-24 09:41 | Electrocardiogram Report ---
Test Reason : Blood Pressure : / mmHG Vent. Rate : 069 BPM Atrial Rate : 069 BPM P-R Int : 250 ms QRS Dur : 158 ms QT Int : 434 ms P-R-T Axes : 062 144 -68 degrees QTc Int : 465 ms Sinus rhythm with 1st degree A-V block Right bundle branch block Left posterior fascicular block Bifascicular block Inferior infarct (cited on or before 23-DEC-2019) T wave abnormality, consider lateral ischemia Abnormal ECG When compared with ECG of 23-DEC-2019 18:38, (unconfirmed) No significant change Confirmed by Sal Zaman ([id number]) on 12/24/2019 9:41:37 AM Referred By: REFERRED SELF Confirmed By:Sal Zaman
--- NOTE | 2019-12-24 10:31 | Cardiology Consultation ---
Date of Consultation December 24, 2019 Assessment & Plan (1) Acute non-ST segment elevation myocardial infarction: Patient is a 69-year-old male with multiple cardiac risk factors including age gender hypertension diabetes mellitus dyslipidemia cerebrovascular disease presents with stuttering pattern of intermittent chest pain x4 days duration. Symptoms most pronounced 2 days ago and day of admission. Patient treated at home with aspirin and oxycodone EKGs on presentation demonstrate bifascicular heart block though with lateral ST segment changes troponin significantly elevated despite underlying renal insufficiency. Currently asymptomatic with symptoms resolved in ER with topical nitrates. No signs of congestive heart failure. Patient appropriately anticoagulated. Echocardiogram suggestive of multivessel coronary disease or left main disease with moderate left ventricular dysfunction Patient previously on beta-vandana and aspirin Discussed findings in detail with the patient high risk for multiple aspects of care for underlying ischemic heart disease as well as complications from required procedures Recommendations: Continue beta-vandana IV heparin aspirin. Would add statin to her regimen. Will refer to [facility] for evaluation and potential high risk cardiac catheterization. Discussed in detail with patient he is agreeable. Accepting physician Dr. Mario (2) Ischemic cardiomyopathy: (3) CKD (chronic kidney disease), stage III: (4) IDDM (insulin dependent diabetes mellitus): (5) Bifascicular bundle branch block: (6) HLD (hyperlipidemia): History of Present Illness Reason for Consultation: Non-ST segment elevation myocardial infarction Requesting Physician: Dr. Beltran Attending Physician: Gerber Beltran MD History of Present Illness Patient is a 69-year-old male without prior history of cardiac disease his under lying medical problems include hypertension with hypertensive heart disease, type 2 diabetes mellitus insulin requiring poorly controlled with stage III-IV CKD and polyneuropathy, morbid obesity. Carries a history of known bifascicular heart block on EKG. Dyslipidemia not on therapy Patient presents this admission noting recent evaluation for ulnar neuropathy, patient using oxycodone for control of pain approximately once per day. This admission however patient observed approximately 4-day history of intermittent left arm left shoulder and jaw pain with intermittently associated with diaphoresis. He was treating symptoms with aspirin and additional dose of oxycodone. Notes an additional severe episode approximately 2 days prior to admission with associated diaphoresis with gradually resolved. Date of admission patient had several episodes and ultimately presented to the emergency room with complaints of dyspnea and chest pressure. Symptoms were relieved in the emergency room with topical nitrates. No further recurrence overnight EKG revealed bifascicular heart block though with lateral ischemic changes. He has begun on IV heparin with continued evolution of elevated troponins present at baseline he is referred now for further evaluation. Patient denies prior history of angina myocardial infarction or congestive heart failure. Does note history of possible TIA in 2013. Denies recent fevers chills sweats. Notes no bleeding difficulties melena medication. Notes no acute weight loss or gain. Troponins elevated and trending higher. Echocardiogram this morning demonst rates posterior wall akinesis lateral wall hypokinesis with hypokinetic all other segments EF 35 to 40% Allergies Allergy/AdvReac Type Severity Reaction Status Date / Time lisinopril AdvReac Severe Cough Verified 12/23/19 20:13 Home Medications Home Medications Medication Instructions Recorded Confirmed Type Novolin N NPH U-100 Insulin 45 unit SUBCUT BID 02/09/19 12/23/19 History Novolin R Regular U-100 Insuln 30 unit SUBCUT AC 02/09/19 12/23/19 History amlodipine [Norvasc] 10 mg PO DAILY 02/09/19 12/23/19 History glucosamine-chondroitin [Osteo 1 tab PO DAILY 02/09/19 12/23/19 History Bi-Flex] metoprolol tartrate 100 mg PO DAILY 02/10/19 12/23/19 History furosemide [Lasix] 40 mg PO QAM 12/23/19 12/23/19 History multivitamin 1 tab PO QAM 12/23/19 12/23/19 History oxycodone 5 mg PO Q6H PRN 12/23/19 12/23/19 History Patient History Medical History CKD (chronic kidney disease), stage III HLD (hyperlipidemia) HTN (hypertension) IDDM (insulin dependent diabetes mellitus) Kidney stone Obesity Surgical History H/O knee surgery History of tonsillectomy S/P surgical manipulation of ankle joint Social History Smoking Status: Never smoker Second Hand Exposure: No; Do You Dip or Chew Tobacco: No; Hx Alcohol Use: No Hx Substance Use: No Preferred Language: Panamanian Communication Ability: Effective Rickshaw Driver Required: No Beliefs That Will Affect Care: None marital status: Current Living Situation: Alone current occupational status: retired Other Information That Helps Us Care for You: No Feels Safe at Home: Yes Safety Concerns: Feels Safe At This Time Assistive Devices: Glasses and Wheelchair Assistive Devices Comment: motorized scooter/is at home Review of Systems Review of Systems: All systems reviewed & are unremarkable except as noted in HPI & below Physical Exam Constitutional: WD/WN, vitals as above + morbidly obese; no acute distress Eyes: PERRL, conjunctivae normal, anicteric sclerae ENMT: external ear and nose normal, oropharynx normal Neck: trachea midline, no thyromegaly + thick neck Respiratory: normal respiratory effort, lungs clear to auscultation Cardiovascular: Rate/Rhythm: regular rate and regular rhythm Heart Sounds: normal S1, normal S2 and + murmur (Grade 2/6 systolic murmur no diastolic murmur); no gallop Palpation: normal PMI Vessels: normal carotid upstroke and radial pulses present; no JVD and no carotid bruit Extremities: no edema Gastrointestinal (Abdomen): normal bowel sounds, soft, nontender, no hepatosplenomegaly Obese Musculoskeletal: no cyanosis or clubbing, extremities motor strength 5/5 Skin: no rashes, warm and dry Neurologic: PERRL, EOMI, accommodation nl, no face palsy, no dysarthria Psychiatric: A+Ox3, euthymic affect Results & Data ([facility]) Vital Signs (Past 12 Hours) Vital Signs Temp Pulse Pulse Resp BP Pulse Ox Pulse Ox 12/24/19 07:51 58 L 12/24/19 07:42 36.7 C 62 18 98/66 L 91 12/24/19 03:38 36.6 C 68 18 130/83 91 12/23/19 23:50 36.5 C 67 18 116/73 91 12/23/19 22:38 94 12/23/19 22:20 36.3 C L 82 22 145/78 H 93 Laboratory Results Laboratory Results - last 24 hr 12/23/19 12/23/19 12/23/19 18:50 18:50 18:50 WBC 8.27 RBC 4.39 L Hgb 13.3 L Hct 38.3 L MCV 87.2 MCH 30.3 MCHC 34.7 RDW Std Deviation 41.6 RDW Coeff of Nasim 12.9 Plt Count 201 MPV 10.5 H Immature Gran % (Auto) 0.5 Neut % (Auto) 67.3 Lymph % (Auto) 18.4 Pike % (Auto) 9.9 Eos % (Auto) 3.7 Baso % (Auto) 0.2 Neut # (Auto) 5.56 Lymph # (Auto) 1.52 Pike # (Auto) 0.82 H Eos # (Auto) 0.31 Baso # (Auto) 0.02 Immature Gran # (Auto) 0.04 H PT 10.5 INR 1.0 APTT 27.7 PTT Ratio 1.0 Sodium 132 L Potassium 4.6 Chloride 97 L Carbon Dioxide 27 Anion Gap 8.0 BUN 56 H Creatinine 2.87 H Est Cr Clr Drug Dosing Not Reportable Est GFR ( Amer) 24.8 Est GFR (Non-Af Amer) 21.4 BUN/Creatinine Ratio 19.6 Glucose 237 H POC Glucose Estimat Average Glucose Hemoglobin A1c Calcium 8.9 Magnesium Troponin I 2.100 H* Triglycerides Cholesterol LDL Cholesterol, Calc VLDL Cholesterol, Calc HDL Cholesterol Cholesterol/HDL Ratio Lipase 179 12/23/19 12/23/19 12/23/19 20:20 22:39 23:22 WBC RBC Hgb Hct MCV MCH MCHC RDW Std Deviation RDW Coeff of Nasim Plt Count MPV Immature Gran % (Auto) Neut % (Auto) Lymph % (Auto) Pike % (Auto) Eos % (Auto) Baso % (Auto) Neut # (Auto) Lymph # (Auto) Pike # (Auto) Eos # (Auto) Baso # (Auto) Immature Gran # (Auto) PT INR APTT PTT Ratio Sodium Potassium Chloride Carbon Dioxide Anion Gap BUN Creatinine Est Cr Clr Drug Dosing Est GFR ( Amer) Est GFR (Non-Af Amer) BUN/Creatinine Ratio Glucose POC Glucose 210 H 183 H Estimat Average Glucose Hemoglobin A1c Calcium Magnesium Troponin I 5.590 H* Triglycerides Cholesterol LDL Cholesterol, Calc VLDL Cholesterol, Calc HDL Cholesterol Cholesterol/HDL Ratio Lipase 12/24/19 12/24/19 12/24/19 03:59 03:59 03:59 WBC 10.82 H RBC 4.38 L Hgb 13.2 L Hct 38.1 L MCV 87.0 MCH 30.1 MCHC 34.6 RDW Std Deviation 41.2 RDW Coeff of Nasim 12.8 Plt Count 199 MPV 10.4 Immature Gran % (Auto) 0.4 Neut % (Auto) 63.8 Lymph % (Auto) 23.1 Pike % (Auto) 8.9 Eos % (Auto) 3.6 Baso % (Auto) 0.2 Neut # (Auto) 6.91 H Lymph # (Auto) 2.50 Pike # (Auto) 0.96 H Eos # (Auto) 0.39 Baso # (Auto) 0.02 Immature Gran # (Auto) 0.04 H PT INR APTT > 139.0 H* PTT Ratio > 5.0 Sodium 131 L Potassium 4.3 Chloride 98 Carbon Dioxide 29 Anion Gap 4.0 BUN 56 H Creatinine 2.79 H Est Cr Clr Drug Dosing 35.4 Est GFR ( Amer) 25.6 Est GFR (Non-Af Amer) 22.1 BUN/Creatinine Ratio 20.1 H Glucose 179 H POC Glucose Estimat Average Glucose Hemoglobin A1c Calcium 8.8 Magnesium 1.9 Troponin I 15.900 H* Triglycerides 133 Cholesterol 198 LDL Cholesterol, Calc 138 VLDL Cholesterol, Calc 27 HDL Cholesterol 33 Cholesterol/HDL Ratio 6 Lipase 12/24/19 12/24/19 12/24/19 03:59 05:47 07:19 WBC RBC Hgb Hct MCV MCH MCHC RDW Std Deviation RDW Coeff of Nasim Plt Count MPV Immature Gran % (Auto) Neut % (Auto) Lymph % (Auto) Pike % (Auto) Eos % (Auto) Baso % (Auto) Neut # (Auto) Lymph # (Auto) Pike # (Auto) Eos # (Auto) Baso # (Auto) Immature Gran # (Auto) PT INR APTT 101.9 H* 52.1 H* PTT Ratio 3.7 1.9 Sodium Potassium Chloride Carbon Dioxide Anion Gap BUN Creatinine Est Cr Clr Drug Dosing Est GFR ( Amer) Est GFR (Non-Af Amer) BUN/Creatinine Ratio Glucose POC Glucose Estimat Average Glucose 255 Hemoglobin A1c 10.5 H Calcium Magnesium Troponin I Triglycerides Cholesterol LDL Cholesterol, Calc VLDL Cholesterol, Calc HDL Cholesterol Cholesterol/HDL Ratio Lipase 12/24/19 07:28 WBC RBC Hgb Hct MCV MCH MCHC RDW Std Deviation RDW Coeff of Nasim Plt Count MPV Immature Gran % (Auto) Neut % (Auto) Lymph % (Auto) Pike % (Auto) Eos % (Auto) Baso % (Auto) Neut # (Auto) Lymph # (Auto) Pike # (Auto) Eos # (Auto) Baso # (Auto) Immature Gran # (Auto) PT INR APTT PTT Ratio Sodium Potassium Chloride Carbon Dioxide Anion Gap BUN Creatinine Est Cr Clr Drug Dosing Est GFR ( Amer) Est GFR (Non-Af Amer) BUN/Creatinine Ratio Glucose POC Glucose 158 H Estimat Average Glucose Hemoglobin A1c Calcium Magnesium Troponin I Triglycerides Cholesterol LDL Cholesterol, Calc VLDL Cholesterol, Calc HDL Cholesterol Cholesterol/HDL Ratio Lipase
--- NOTE | 2019-12-24 13:38 | Hospitalist Progress Note ---
Date of Service December 24, 2019 Assessment & Plan (1) Acute non-ST segment elevation myocardial infarction: Presented with intermittent chest pain for a few days. Multiple risk factors for CAD. EKG showed NSR, LAD, RBBB, probable old inferior infarct, nonspecific ST / T- wave changes. Cardiology consulted. Treated with aspirin, IV heparin, metoprolol, statin. Serum troponins: 2.1 --> 24.7 Echo demonstrated moderate LVH, wall motion abnormalities involving inferior, posterior, lateral centeno, overall LVEF 35-40%, dilated LA, grade III diastolic dysfunction, mild-moderate calcification of aortic valve without significant stenosis. Cardiac cath recommended. High risk for procedure. Transfer to tertiary care recommended. (2) Ischemic cardiomyopathy: Echo as noted above. Management per Cardiology. (3) Hypertensive heart disease: As noted above. (4) Hypertension: Continue metoprolol and other cardiovascular meds per Cardiology. (5) Cerebrovascular disease: History of stroke. Continue aspirin. Ongoing risk factor modification. Lipid management as discussed below. (6) Hypoxia: O2 sat 88% on RA. No overt pulmonary edema on chest x-ray. Nonsmoker. Suspect obesity hypoventilation syndrome. Consider eventual 2-step pulse oximetry and nocturnal oximetry with eventual sleep study as outpatient. (7) CKD (chronic kidney disease), stage IV: Recent baseline creatinines 2.65 - 3.41 here in 2019 with GFR's in 20's. Creatinine today = 2.79. Follow. (8) Diabetes mellitus type 2 with complications: DM type 2 managed with Novolin N & R. Diabetes complicated by neuropathy, nephropathy, and now CAD. Hgb A1c = 10.5. FBS today = 158. Titrate insulin therapy. Ongoing education / support. (9) Dyslipidemia: LDL-c = 138. High intensity statin therapy with atorvastatin 80 mg daily. (10) Diabetic neuropathy: Neuropathy precautions. (11) Morbid obesity: Heart healthy diet. Counseling. (12) DVT prophylaxis: Currently receiving IV heparin. (13) Discharge planning issues: Anticipated transfer to [facility] for further cardiac evaluation and management. Accepting physician = Dr. Mario. Family Medicine follow-up with Dr. Zarate. Cardiology follow-up with [facility] in [place]. Admission and Anticipated Discharge Date Admission Date: December 23, 2019 Subjective Recheck for acute NC and other problems. Patient seen in their room around 1100. Admitted last night with intermittent chest pain over past few days. Serum troponins elevated as detailed below. Treated with aspirin, IV heparin, metoprolol, statin. Feels better this morning. No chest pain or SOB. Has dependent edema while sitting in chair, nothing unusual for him. Review of Systems: Constitutional- no fever. Cardiac- as noted above. Pulmonary- no cough or SOB. GI- no nausea, vomiting, diarrhea, melena, hematochezia. - no urinary symptoms. Otherwise, as noted above. Physical Exam Constitutional: no acute distress Respiratory: no respiratory distress Auscultation: lungs clear to auscultation bilaterally Cardiovascular: Rate/Rhythm: regular rate and regular rhythm Heart Sounds: + gallop (none appreciated, but exam limited) and + murmur (I/ sys murmur at b ase and LSB); no cardiac rub Vessels: no JVD Extremities: + edema (2+ pretibial); no calf tenderness Gastrointestinal (Abdomen): normal bowel sounds, soft, nontender, no hepatosplenomegaly Musculoskeletal: Extremities: no cyanosis Skin: no rashes, warm and dry Psychiatric: Orientation: alert and oriented x 3 Results & Data Results & Data ([facility] [place]) Vital Signs (Past 12 Hours) Vital Signs Temp Pulse Pulse Resp BP Pulse Ox 12/24/19 12:39 36.6 C 55 L 18 120/73 92 12/24/19 07:51 58 L 12/24/19 07:42 36.7 C 62 18 98/66 L 91 12/24/19 03:38 36.6 C 68 18 130/83 91 Laboratory Results Cardiac Enzymes 12/23/19 12/23/19 12/24/19 Range/Units 18:50 22:39 03:59 Troponin I 2.100 H* 5.590 H* 15.900 H* (0-0.045) ng/ml 12/24/19 Range/Units 10:39 Troponin I 24.700 H* (0-0.045) ng/ml Coagulation 12/23/19 12/24/19 12/24/19 Range/Units 18:50 03:59 05:47 PT 10.5 (9.0-12.0) Seconds APTT 27.7 > 139.0 H* 101.9 H* (21.0-31.0) Seconds 12/24/19 Range/Units 07:19 PT (9.0-12.0) Seconds APTT 52.1 H* (21.0-31.0) Seconds Lipids 12/24/19 Range/Units 03:59 Triglycerides 133 (0-150) mg/dl Cholesterol 198 (0-200) mg/dl HDL Cholesterol 33 mg/dl Cholesterol/HDL Ratio 6 CBC 12/23/19 12/24/19 Range/Units 18:50 03:59 WBC 8.27 10.82 H (4.8-10.8) K/uL RBC 4.39 L 4.38 L (4.7-6.1) M/uL Hgb 13.3 L 13.2 L (14.0-18.0) g/dL Hct 38.3 L 38.1 L (42-52) % Plt Count 201 199 (130-400) K/uL Neut # (Auto) 5.56 6.91 H (1.4-6.5) K/uL Lymph # (Auto) 1.52 2.50 (1.2-3.4) K/uL Calloway # (Auto) 0.82 H 0.96 H (0.11-0.59) K/uL Eos # (Auto) 0.31 0.39 (0-0.5) K/uL Baso # (Auto) 0.02 0.02 (0-0.2) K/uL Comprehensive Metabolic Panel 12/23/19 12/24/19 Range/Units 18:50 03:59 Sodium 132 L 131 L (136-145) mmol/L Potassium 4.6 4.3 (3.5-5.1) mmol/L Chloride 97 L 98 (98-107) mmol/L Carbon Dioxide 27 29 (21-32) mmol/L BUN 56 H 56 H (7-18) mg/dl Creatinine 2.87 H 2.79 H (0.6-1.4) mg/dl Glucose 237 H 179 H (70-99) mg/dl Calcium 8.9 8.8 (8.5-10.1) mg/dl Diagnostic Findings PORTABLE CHEST X-RAY FINDINGS: The lungs are clear. There are low lung volumes. The heart remains mildly enlarged. No pleural effusions. No pneumothorax. A few anterior linear densities favor scarring or atelectasis. Right AC joint arthrosis and fragmentation remains unchanged. IMPRESSION: No significant change compared to the prior study. No acute process. Stable cardiomegaly. Electronically signed by: Brendan Rider M.D. 12/23/2019 7:24 PM ECG Additional Comments: EKG performed at 0622 reviewed and demonstrated SR at 62//min, first degree heart block, left axis deviation, RBBB, probable age-indeterminate inferior infarct, ST depression I, II, V3-6.
[2019-12-24 14:29] LABS: Partial Thromboplastin Ratio 2.3
--- NOTE | 2019-12-24 14:39 | Discharge Summary ---
Date of Service Date of Admission: 12/23/19 Date of Discharge: 12/24/19 (anticipated) Admission HPI Per Admitting Provider This is a 69-year-old male with past medical history significant for type 2 diabetes, hyperlipidemia, history of stroke in 2014, hypertension, morbid obesity, atherosclerotic cardiovascular disease, chronic kidney disease stage III to IV, who lives alone, mostly uses electric wheelchair, but the patient says he can ambulate for 50 yards, but not very active because of his neuropathy. He comes because of chest pain. The patient states since June he is having pain in his right hand and arm and also right shoulder. He is taking oxycodone for that. Orthopedics advised for surgical treatment of right cubital tunnel syndrome, but is currently held due to uncontrolled diabetes and the patient says is going to have the procedure soon, but last 4 days he is having chest pain, sharp, achy pain radiating to his back of the head and neck. Initially thought it could be coming from his cervical spine or probably shoulder, but he is getting it couple of times every day. He generally is not active, not sure if activity makes it worse. When it comes it is severe. So he got worried and came to the ER today. In the ER, his EKG shows some ST changes and troponin was 2.1. He was also somewhat hypoxic at 88% on room air and saturating okay on 2 liters. Somewhat shaky. ER physician talked to cardiology and initiated on IV heparin. The patient received nitroglycerin, aspirin. Currently, pain is resolved. He is hungry and he wants to eat something. Denies any shortness of breath. Denies any cough. Has some headache. No dizziness, no blurred vision, no earache, no runny nose, no sore throat, no loss of sense of smell or taste. No dysphagia. Otherwise, appetite is okay. No exposure to any COVID patients. No nausea, no abdominal pain. Somewhat constipated from the pain medications. He had a small bowel movement earlier in the morning today. Denies any blood in stools. Normal bladder movements. No hematuria. Has chronic swelling in the legs. No rash, no fevers. Principal Diagnosis non-ST elevation myocardial infarction OTHER ACUTE / NEW DIAGNOSES: ischemic cardiomyopathy, LVEF 35-40% Discharge Data Allergies Allergy/AdvReac Type Severity Reaction Status Date / Time lisinopril AdvReac Severe Cough Verified 12/23/19 20:13 Consultations 12/23/19 19:47 ED Decision to Admit Stat 12/23/19 22:17 Consult Case Management - Discharge Planning Routine 12/24/19 08:00 Consult Cardiology Routine Diabetes Follow up Diabetes Follow-up Needed for HgbA1c >9% Hospital Course (1) Acute non-ST segment elevation myocardial infarction: Presented with intermittent chest pain for a few days. Multiple risk factors for CAD. EKG showed NSR, LAD, RBBB, probable old inferior infarct, nonspecific ST / T- wave changes. Cardiology consulted. Treated with aspirin, IV heparin, metoprolol, statin. Serum troponin I's: 2.1 --> 24.7 (normal range 0 - 0.045 ng/ml) Echo demonstrated moderate LVH, wall motion abnormalities involving inferior, posterior, lateral centeno, overall LVEF 35-40%, dilated LA, grade III diastolic dysfunction, mild-moderate calcification of aortic valve without significant stenosis. Cardiac cath recommended. Transfer to tertiary care recommended due to high risk. (2) Ischemic cardiomyopathy: Echo as noted above. Management per Cardiology. (3) Hypertensive heart disease: As noted above. (4) Hypertension: Continue metoprolol and other cardiovascular meds per Cardiology. (5) Cerebrovascular disease: History of stroke. Continue aspirin. Ongoing risk factor modification. Lipid management as discussed below. (6) Hypoxia: O2 sat 88% on RA. No overt pulmonary edema on chest x-ray. Nonsmoker. Suspect obesity hypoventilation syndrome. Consider eventual 2-step pulse oximetry and nocturnal oximetry with eventual sleep study as outpatient. (7) CKD (chronic kidney disease), stage IV: Recent baseline creatinines 2.65 - 3.41 here in 2019 with GFR's in 20's. Creatinine today = 2.79. Follow. (8) Diabetes mellitus type 2 with complications: DM type 2 managed with Novolin N & R. Diabetes complicated by neuropathy, nephropathy, and now CAD. Hgb A1c = 10.5. FBS today = 158. Titrate insulin therapy. Ongoing education / support. (9) Dyslipidemia: LDL-c = 138. High intensity statin therapy with atorvastatin 80 mg daily. (10) Diabetic neuropathy: Neuropathy precautions. (11) Morbid obesity: Heart healthy diet. Counseling. (12) DVT prophylaxis: Currently receiving IV heparin. (13) Discharge planning issues: Anticipated transfer to [facility] for further cardiac evaluation and management. Accepting physician = Dr. Mario. Family Medicine follow-up with Dr. Zarate. Cardiology follow-up with [facility] in [place]. Cardiac Enzymes 12/23/19 12/23/19 12/24/19 Range/Units 18:50 22:39 03:59 Troponin I 2.100 H* 5.590 H* 15.900 H* (0-0.045) ng/ml 12/24/19 Range/Units 10:39 Troponin I 24.700 H* (0-0.045) ng/ml Coagulation 12/23/19 12/24/19 12/24/19 Range/Units 18:50 03:59 05:47 PT 10.5 (9.0-12.0) Seconds APTT 27.7 > 139.0 H* 101.9 H* (21.0-31.0) Seconds 12/24/19 Range/Units 07:19 PT (9.0-12.0) Seconds APTT 52.1 H* (21.0-31.0) Seconds Lipids 12/24/19 Range/Units 03:59 Triglycerides 133 (0-150) mg/dl Cholesterol 198 (0-200) mg/dl HDL Cholesterol 33 mg/dl Cholesterol/HDL Ratio 6 CBC 12/23/19 12/24/19 Range/Units 18:50 03:59 WBC 8.27 10.82 H (4.8-10.8) K/uL RBC 4.39 L 4.38 L (4.7-6.1) M/uL Hgb 13.3 L 13.2 L (14.0-18.0) g/dL Hct 38.3 L 38.1 L (42-52) % Plt Count 201 199 (130-400) K/uL Neut # (Auto) 5.56 6.91 H (1.4-6.5) K/uL Lymph # (Auto) 1.52 2.50 (1.2-3.4) K/uL George # (Auto) 0.82 H 0.96 H (0.11-0.59) K/uL Eos # (Auto) 0.31 0.39 (0-0.5) K/uL Baso # (Auto) 0.02 0.02 (0-0.2) K/uL Comprehensive Metabolic Panel 12/23/19 12/24/19 Range/Units 18:50 03:59 Sodium 132 L 131 L (136-145) mmol/L Potassium 4.6 4.3 (3.5-5.1) mmol/L Chloride 97 L 98 (98-107) mmol/L Carbon Dioxide 27 29 (21-32) mmol/L BUN 56 H 56 H (7-18) mg/dl Creatinine 2.87 H 2.79 H (0.6-1.4) mg/dl Glucose 237 H 179 H (70-99) mg/dl Calcium 8.9 8.8 (8.5-10.1) mg/dl HOME Medications Novolin N NPH U-100 Insulin 45 unit SUBCUT BID 02/09/19 [History Confirmed 12/23/19] Novolin R Regular U-100 Insuln 30 unit SUBCUT AC 02/09/19 [History Confirmed 12/23/19] amlodipine [Norvasc] 10 mg PO DAILY 02/09/19 [History Confirmed 12/23/19] glucosamine-chondroitin [Osteo Bi-Flex] 1 tab PO DAILY 02/09/19 [History Confirmed 12/23/19] metoprolol tartrate 100 mg PO DAILY 02/10/19 [History Confirmed 12/23/19] furosemide [Lasix] 40 mg PO QAM 12/23/19 [History Confirmed 12/23/19] multivitamin 1 tab PO QAM 12/23/19 [History Confirmed 12/23/19] oxycodone 5 mg PO Q6H PRN 12/23/19 [History Confirmed 12/23/19] Active INPATIENT Medications Acetaminophen (Acetaminophen 325 Mg Tab) 650 mg PO Q4H PRN PRN Reason: Pain or Fever Stop: 01/22/20 22:16 Last Admin: 12/23/19 23:25 Dose: 650 mg Documented by: Amlodipine Besylate (Amlodipine Besylate 5 Mg Tab) 10 mg PO DAILY [facility] Stop: 01/23/20 08:59 Last Admin: 12/24/19 08:19 Dose: 10 mg Documented by: Aspirin (Aspirin 81 Mg Ectab) [facility] Stop: 01/23/20 08:59 Last Admin: 12/24/19 08:19 Dose: 81 mg Documented by: Atorvastatin Calcium (Atorvastatin 40 Mg Tab) 80 mg PO QAM [facility] Stop: 01/23/20 08:59 Last Admin: 12/24/19 08:18 Dose: 80 mg Documented by: Dextrose (Dextrose 50% 50 Ml Syringe) 25 - 50 ml IV UD PRN; Protocol PRN Reason: Hypoglycemia Protocol Stop: 01/22/20 22:29 Furosemide (Furosemide 40 Mg Tab) 40 mg PO QAM [facility] Stop: 01/23/20 08:59 Last Admin: 12/24/19 08:19 Dose: 40 mg Documented by: Glucagon (Glucagon For Inj 1 Mg Vial) 1 mg SQ UD PRN; Protocol PRN Reason: Hypoglycemia Protocol Stop: 01/22/20 22:29 Glucose (Glucose 40% Gel 15 Gm Tube) 15 - 30 gm PO UD PRN; Protocol PRN Reason: Hypoglycemia Protocol Stop: 01/22/20 22:29 Glucose (Glucose 10 Tabs/Tube) 4 - 8 tabs PO UD PRN; Protocol PRN Reason: Hypoglycemia Protocol Stop: 01/22/20 22:29 Heparin Sodium/Dextrose (Heparin Sodium/Dextrose) 25,000 units in 500 mls @ 31 mls/hr IV .[id number] [facility]; Protocol Stop: 01/22/20 20:29 Last Titration: 12/24/19 08:11 Dose: 1,550 units/hr, 31 mls/hr Documented by: Insulin Aspart (Insulin Aspart 100 Units/Ml 3 Ml Pen) 0 units SC ACHS [facility] Stop: 01/23/20 07:29 Last Admin: 12/24/19 11:43 Dose: 5 units Documented by: Insulin Human NPH (Insulin Human Nph) 20 units SC BID [facility] Stop: 01/22/20 22:16 Last Admin: 12/24/19 09:10 Dose: Not Given Documented by: Metoprolol Tartrate (Metoprolol Tartrate 100 Mg Tab) 100 mg PO BID [facility] Stop: 01/23/20 08:59 Last Admin: 12/24/19 08:19 Dose: 100 mg Documented by: Miscellaneous (Carbohydrates For Hypoglycemia ) 15 - 30 gm PO UD PRN PRN Reason: Hypoglycemia Treatment Stop: 01/22/20 22:29 Morphine Sulfate (Morphine Sulfate 2 Mg/Ml Carp) 2 mg IV Q30M PRN PRN Reason: Chest Pain Stop: 10/04/20 22:16 Multivitamins (Multivitamin Tab) 1 tab PO QAM JAYA Stop: 01/23/20 08:59 Last Admin: 12/24/19 08:19 Dose: 1 tab Documented by: Nitroglycerin (Nitroglycerin Sl 0.4 Mg/Tab Tab) 0.4 mg SL UD PRN PRN Reason: Chest Pain Stop: 01/22/20 22:16 Ondansetron HCl (Ondansetron Inj 2 Mg/Ml 2 Ml Vial) 4 mg IV Q6H PRN PRN Reason: Nausea Stop: 01/22/20 22:16 Oxycodone HCl (Oxycodone Hcl Ir 5 Mg Tab (Immediate Release)) 5 mg PO Q6H PRN PRN Reason: Pain Stop: 01/06/20 22:21 Last Admin: 12/24/19 06:25 Dose: 5 mg Documented by: Total Time Total Time Spent Total Time Spent (In Minutes): 45 Discharge Plan Discharge Items Patient Disposition: Transfer Acute Care Hospital Reason For Visit: CHEST PAIN Discharge Diagnosis: acute non-ST elevation MD ischemic cardiomyopathy CKD IV Activity: Resume your previous activity Non-emergency contact: Primary Care Provider, Hospitalist and Assurance Associate Call non-emergency contact if: you have any medication questions Follow-up/Referrals: Ermias Zarate DO [Primary Care Provider] - Diet: Carb Consistent or DM2 and Heart Healthy Addtl Attending Provider Instructions: Please refer to DC summary >> "Hospital Course" >> "Discharge planning issues" for home meds at time of admission and inpatient meds. Thank you for receiving this patient in transfer. Please call or TigerText if you have any questions. Gerber Beltran Pending Studies at Discharge: No Stand-Alone Forms: My [facility] Skilled Items Patient informed of condition?: Yes DNR: No Discharge Level of Care: Other Communicable Disease: No Discharge Prognosis: Stable Lines: Peripheral IV Urinary Catheter: No Medications and DC Order Prescriptions: Discontinued amlodipine [Norvasc] 10 mg tablet 10 mg PO DAILY RF: 0 Novolin R Regular U-100 Insuln 100 unit/mL solution 30 unit subcut AC RF: 0 Novolin N NPH U-100 Insulin 100 unit/mL suspension 45 unit subcut BID RF: 0 glucosamine-chondroitin [Osteo Bi-Flex] 250-200 mg Tablet 1 tab PO DAILY RF: 0 metoprolol tartrate 100 mg Tablet 100 mg PO DAILY RF: 0 multivitamin Tablet 1 tab PO QAM RF: 0 oxycodone 5 mg tablet 5 mg PO Q6H PRN (Reason: Pain) RF: 0 furosemide [Lasix] 40 mg tablet 40 mg PO QAM RF: 0 Discharge Orders: Discharge Order (Routine); Ordered 12/24/19 Ordered By: Gerber Beltran Admission Data Admit Date/Time: 12/23/19 21:38 Attending Provider: Gerber Beltran Admit Provider: Mykel Bustamante Primary Care Provider: Ermias Zarate Other Providers: Mykel Bustamante ; Charan Lopez
[2019-12-24] MEDS: HEPARIN SODIUM/DEXTROSE 25,000 UNITS/500 ML BAG IV SCH (14:44)
[2019-12-24 15:02] LABS: Partial Thromboplastin Time 63.5 Seconds (21.0-31.0)
[2019-12-25] MEDS: HEPARIN SODIUM/DEXTROSE 25,000 UNITS/500 ML BAG IV SCH (04:48)
[2019-12-25 06:02] LABS: Partial Thromboplastin Ratio 2.9
[2019-12-25 06:09] LABS: Partial Thromboplastin Time 79.6 Seconds (21.0-31.0)
--- NOTE | 2019-12-26 14:00 | Electrocardiogram Report ---
Test Reason : Blood Pressure : / mmHG Vent. Rate : 069 BPM Atrial Rate : 069 BPM P-R Int : 280 ms QRS Dur : 150 ms QT Int : 430 ms P-R-T Axes : 027 017 -58 degrees QTc Int : 460 ms Sinus rhythm with 1st degree A-V block Right bundle branch block Inferior infarct (cited on or before 23-DEC-2019) Abnormal ECG When compared with ECG of 24-DEC-2019 06:22, No significant change was found Confirmed by Sal Zaman ([id number]) on 12/26/2019 1:59:47 PM Referred By: REFERRED SELF Confirmed By:Sal Zaman
== END 2019-12-25 08:26 | disposition short-term general hospital (02) | DRG 281 ==
LOC: ED 18:24 → SUATTDRO 21:38 → 2S 21:38

== ENCOUNTER 2021-06-17 08:48 | Inpatient (IN) ==
[2021-06-17] MEDS ORDERED: ONDANSETRON INJ 2 MG/ML 2 ML VIAL IV STA (09:10)
[2021-06-17] MEDS ORDERED: MoRPHine SULFATE 4 MG/ML 1 ML CARP\\VIAL IV STA ×2 (09:10→14:49)
--- NOTE | 2021-06-17 09:13 | Emergency Department Note ---
Impression & Plan Acute hyperkalemia ADMIT ED Provider Note HPI: The patient is a 70-year-old gentleman with history of ischemic cardiomyopathy with reduced ejection fraction approximately 35%, chronic kidney disease, presents the emergency department with a chief complaint of right flank pain. Patient states his pain is been ongoing and somewhat worsening over the past several days. States the pain originally began after he had an orthopedic surgery done on his right cubital tunnel on June 03. Patient states he has had some pain in his lower back area since then on the right side. He states he has had some reduced urination. On arrival to the ED the patient is hemodynamically stable, he is in mild distress secondary to pain but he is otherwise saturating well on room air and is generally nontoxic-appearing. 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 Suspicious for passed kidney stone. Patient is yet to give us a urine sample. Lab work shows evidence of hyperkalemia with potassium of 6.1, metabolic acidosis with serum bicarbonate level of 12, patient does have chronic kidney disease, his creatinine is currently 4.58, BUN of 106.Last creatinine in our system Is 2.8 from 2019. Patient was given sodium bicarbonate, dextrose, insulin, calcium gluconate here in the ED. His EKG does not show any evidence of peaked T waves. Patient re mained stable on telemetry. I discussed the above findings with the on-call midlevel provider for [facility] [place], [place], who agreed for admission to a telemetry bed for further management. Patient was admitted in stable condition. Urinalysis is pending at the time of admission. Patient is noted to have a slight leukocytosis and left shift. We will plan to treat urine if there is evidence of infection given Suspicion for recently passed kidney stone. * CRITICAL CARE TIME: 36 minutes -Treatment of critical electrolyte abnormality, hyperkalemia with potassium 6.1 requiring IV medications for stabilization/treatment, time spent at the bedside, discussion with other healthcare providers and arrangement of admission Diagnosis: 1. Hyperkalemia 2. Acute on chronic renal failure 3. Uremia 4. Right flank pain, hydronephrosis without obstruction Disposition: ADMIT Joe Thomason DO Emergency Medicine Past Med/Surg History Medical History (Updated 06/17/21 @ 11:12 by Joe Thomason DO) Cerebrovascular disease stroke 2013 CKD (chronic kidney disease), stage IV Diabetes mellitus type 2 with complications Diabetic neuropathy Dyslipidemia Hypertension Hypertensive heart disease Ischemic cardiomyopathy EF 35-40% Kidney stone Morbid obesity Surgical History (Updated 02/12/20 @ 14:04 by Cindi Rodriguez RN) H/O knee surgery History of tonsillectomy S/P surgical manipulation of ankle joint Stented coronary artery JOAO placement to the Circumflex, Proximal LAD and mid LAD with a SIMPLEX OPERATOR of his RCA Social History Smoking Status: Never smoker Second Hand Exposure: No; Hx Alcohol Use: No Hx Substance Use: No Preferred Language: Greenlandic Communication Ability: Effective Clinical Laboratory Technician Required: No Beliefs That Will Affect Care: None marital status: Current Living Situation: Alone current occupational status: retired current occupation: Retired Feels Safe at Home: Yes Assistive Devices: Oxygen - Continuous Allergies Allergies Allergy/AdvReac Type Severity Reaction Status Date / Time losartan Allergy Diarrhea Unverified 06/17/21 09:50 lisinopril AdvReac Severe Cough Verified 12/23/19 20:13 Home Meds Home Medications Medication Instructions Recorded Confirmed amlodipine 10 mg tablet 10 mg PO QAM 06/17/21 06/17/21 aspirin 81 mg tablet 81 mg PO DAILY 06/17/21 06/17/21 atorvastatin 80 mg tablet 80 mg PO QAM 06/17/21 06/17/21 clopidogrel 75 mg tablet 75 mg PO QAM 06/17/21 06/17/21 furosemide 40 mg tablet 40 mg PO QAM 06/17/21 06/17/21 gabapentin 300 mg capsule 300 mg PO TID 06/17/21 06/17/21 hydrocodone 5 mg-acetaminophen 325 5 - 325 tab PO Q6 PRN 06/17/21 06/17/21 mg tablet insulin NPH isoph U-100 human 100 100 unit SUBCUT UD 06/17/21 06/17/21 unit/mL subcutaneous suspension (Novolin N NPH U-100 Insulin isophane) insulin regular human 100 unit/mL 100 sliding scale dose SUBCUT UD 06/17/21 06/17/21 injection solution (Novolin R Regular U-100 Insulin) methylprednisolone 4 mg tablets in 4 mg PO UD 06/17/21 06/17/21 a dose pack metoprolol succinate 50 mg 50 mg PO QPM 06/17/21 06/17/21 tablet,extended release 24 hr olmesartan 5 mg tablet 5 mg PO QAM 06/17/21 06/17/21 semaglutide (Ozempic) See Rx Instructions .ROUTE .COMPLEX 06/17/21 06/17/21 Results & Data (ED) Vital Signs Vital Signs - 24 hr 06/17/21 08:52 Temperature 36.5 C Temperature Source Temporal Artery Scan Pulse Rate 86 Respiratory Rate 16 Respiratory Effort / Characteristics Non-Labored Respiratory Depth Normal Respiratory Pattern Regular Blood Pressure 124/73 Blood Pressure Mean 90 Blood Pressure Position Sitting Pulse Oximetry 98 Oxygen Delivery Method Room Air Sepsis Recent Fever Within 48 Hours No Sepsis New/Unexplained Change in Mental Status No Sepsis Action Taken by Nursing No Action Required Laboratory Data Result diagrams: 06/17/21 09:28 06/17/21 09:28 Lab Results 06/17/21 06/17/21 Range/Units 09:28 09:28 WBC 11.23 H (4.8-10.8) K/uL RBC 4.12 L (4.7-6.1) M/uL Hgb 12.5 L (14.0-18.0) g/dL Hct 34.7 L (42-52) % MCV 84.2 (80-100) fL MCH 30.3 (25-34) pg MCHC 36.0 (32-36) g/dL RDW Std Deviation 39.3 (36.4-46.3) fL RDW Coeff of Nasim 12.9 (11.5-14.5) % Plt Count 234 (130-400) K/uL MPV 9.6 (7.4-10.4) fL Immature Gran % (Auto) 0.9 % Neut % (Auto) 67.7 % Lymph % (Auto) 17.5 % [place] % (Auto) 11.3 % Eos % (Auto) 2.4 % Baso % (Auto) 0.2 % Neut # (Auto) 7.61 H (1.4-6.5) K/uL Lymph # (Auto) 1.96 (1.2-3.4) K/uL [place] # (Auto) 1.27 H (0.11-0.59) K/uL Eos # (Auto) 0.27 (0-0.5) K/uL Baso # (Auto) 0.02 (0-0.2) K/uL Immature Gran # (Auto) 0.10 H (0.00-0.02) K/uL Sodium 130 L (136-145) mmol/L Potassium 6.1 H* (3.5-5.1) mmol/L Chloride 107 (98-107) mmol/L Carbon Dioxide 12 L (21-32) mmol/L Anion Gap 11 (3-11) BUN 106 H (6-23) mg/dl Creatinine 4.58 H* (0.6-1.4) mg/dl Est Cr Clr Drug Dosing 20.6 ml/min Est GFR ( Amer) 14.0 ml/min Est GFR (Non-Af Amer) 12.1 ml/min BUN/Creatinine Ratio 23.1 H (10-20) Glucose 151 H (70-99(Fasting)) mg/dl Calcium 8.6 (8.5-10.1) mg/dl Total Bilirubin 0.5 (0.2-1.0) mg/dl AST 14 (13-39) U/L ALT 23 (7-52) U/L Alkaline Phosphatase 97 (34-104) U/L Total Protein 6.9 (6.0-8.3) gm/dl Albumin 3.7 (3.4-5.0) gm/dl Globulin 3.2 (2.5-4.0) gm/dl Albumin/Globulin Ratio 1.2 (0.9-2) Lipase 82 (11-82) U/L Administered Medications Sodium Bicarbonate 150 meq/ (Dextrose) 1,150 mls @ 290 mls/hr IV .Q3H58M STA Stop: 06/17/21 14:10 Last Admin: 06/17/21 10:43 Dose: 290 mls/hr Documented by: [id number] Discontinued Medications Dextrose (Dextrose 50% 50 Ml Syringe) 50 ml IV NOW STA Stop: 06/17/21 10:14 Last Admin: 06/17/21 10:43 Dose: 50 ml Documented by: [id number] Calcium Gluconate 1,000 mg/ (Dextrose) 60 mls @ 240 mls/hr IV ONCE STA Stop: 06/17/21 10:27 Last Admin: 06/17/21 10:43 Dose: 240 mls/hr Documented by: [id number] Insulin Human Regular 10 units (/ Syringe) 9.9 mls @ 3 mls/sec IV ONE STA Stop: 06/17/21 10:14 Last Admin: 06/17/21 10:43 Dose: 3 mls/sec Documented by: [id number] Cosigned by: [id number] Miscellaneous (Stat Iv) 1 ea N/A NOW STA Stop: 06/17/21 10:14 Last Admin: 06/17/21 10:51 Dose: 1 ea Documented by: [id number] Morphine Sulfate (Morphine Sulfate 4 Mg/Ml 1 Ml Carp\Vial) 4 mg IV NOW STA Stop: 06/17/21 09:11 Last Admin: 06/17/21 09:33 Dose: 4 mg Documented by: [id number] Ondansetron HCl (Ondansetron Inj 2 Mg/Ml 2 Ml Vial) 4 mg IV NOW STA Stop: 06/17/21 09:11 Last Admin: 06/17/21 09:32 Dose: 4 mg Documented by: [id number] Imaging Data Radiologist's Impression: Abdomen/Pelvis CT 06/17/21 09:09 CT abd pelvis wo con CLINICAL HISTORY: R flank pain. Status post surgery 06/03/2021 TECHNIQUE: Helical axial images of the abdomen and pelvis were obtained. Automated dose lowering techniques and/or adjustment according to patient size were utilized for this exam. This exam was performed without intravenous contrast. COMPARISON: Comparison is made to CT abdomen pelvis 02/09/2019 FINDINGS: Lower chest: No acute abnormality Liver: Unremarkable. No focal lesions are seen. Gallbladder and biliary tree: No calcified gallstones. Normal caliber wall. No intra- or extrahepatic biliary ductal dilation. Pancreas: Unremarkable, no focal lesions. Spleen: Unremarkable. Adrenals: Unremarkable. Kidneys and ureters: Right hydronephrosis and hydroureter is seen. There is no right nephrolithiasis noted. Nonobstructive stones are seen bilaterally. Multiple exophytic hypodensities are seen on the left compatible with cysts. Bladder: Unremarkable. Reproductive organs: Unremarkable. Bowel: Diverticulosis is seen without evidence of diverticulitis. A small hiatal hernia is seen. Lymph nodes Retroperitoneal: Unremarkable. Mesenteric: Unremarkable. Pelvic: Unremarkable. Peritoneum: Normal. Vessels: Atherosclerotic calcifications are seen. Abdominal wall: A fat-containing umbilical hernia is seen. Bones: Degenerative changes in the visualized spine. IMPRESSION: Interval development of right hydronephrosis and hydroureter without evidence of obstructive stone. This may represent recently passed stone. ACT 112: Negative or not required by law. Electronically signed by: Emeka Hebert M.D. 06/17/2021 10:15 AM Discharge Plan Visit Data Chief Complaint: Kidney Stone Stated Complaint: LOWER BACK PAIN, CONSTIPATION,KIDNEY ISSUES ED Provider: Joe Thomason Discharge Problem: Acute hyperkalemia Forms Stand Alone Forms: My [facility] Prescriptions Prescriptions: No Action furosemide 40 mg tablet 40 mg PO QAM RF: 0 atorvastatin 80 mg tablet 80 mg PO QAM RF: 0 metoprolol succinate 50 mg tablet extended release 24 hr 50 mg PO QPM RF: 0 hydrocodone-acetaminophen 5-325 mg tablet 5 - 325 tab PO Q6 PRN (Reason: Pain) RF: 0 clopidogrel 75 mg tablet 75 mg PO QAM RF: 0 amlodipine 10 mg tablet 10 mg PO QAM RF: 0 Novolin R Regular U-100 Insuln 100 unit/mL solution 100 sliding scale dose subcut UD RF: 0 Novolin N NPH U-100 Insulin 100 unit/mL suspension 100 unit SUBCUT UD RF: 0 gabapentin 300 mg capsule 300 mg PO TID RF: 0 methylprednisolone 4 mg tablets,dose pack 4 mg PO UD RF: 0 olmesartan 5 mg tablet 5 mg PO QAM RF: 0 Low-Dose Aspirin 81 mg Tablet 81 mg PO DAILY RF: 0 Ozempic 0.25 mg or 0.5 mg(2 mg/1.5 mL) pen injector See Rx Instructions .ROUTE .COMPLEX RF: 0 Referrals Referrals: Ermias Zarate DO [Primary Care Provider] -
[2021-06-17 09:42] LABS: Basophils # (auto) 0.02 K/uL (0-0.2); Basophils % (auto) 0.2 %; Eosinophils # (auto) 0.27 K/uL (0-0.5); Eosinophils % (auto) 2.4 %; Hematocrit (blood only) 34.7 % (42-52); Hemoglobin 12.5 g/dL (14.0-18.0); Immature Granulocytes % (auto) 0.9 %; Lymphocytes # (auto) 1.96 K/uL (1.2-3.4); Lymphocytes % (auto) 17.5 %; Mean Corpuscular Hemoglobin 30.3 pg (25-34); Mean Corpuscular Volume 84.2 fL (80-100); Mean Platelet Volume 9.6 fL (7.4-10.4); Monocytes # (auto) 1.27 K/uL (0.11-0.59); Monocytes % (auto) 11.3 %; Neutrophils # (auto) 7.61 K/uL (1.4-6.5); Neutrophils % (auto) 67.7 %; Platelet Count 234 K/uL (130-400); RDW Coefficient of Variation 12.9 % (11.5-14.5); RDW Standard Deviation 39.3 fL (36.4-46.3); Red Blood Count 4.12 M/uL (4.7-6.1); White Blood Count 11.23 K/uL (4.8-10.8)
[2021-06-17 10:09] LABS: Potassium 6.1 mmol/L (3.5-5.1)
[2021-06-17 10:10] LABS: Albumin Globulin Ratio 1.2 (0.9-2); Albumin Level 3.7 gm/dl (3.4-5.0); BUN Creatinine Ratio 23.1 (10-20); Bilirubin,Total 0.5 mg/dl (0.2-1.0); Calcium 8.6 mg/dl (8.5-10.1); Creatinine Clr Calc Pharmacy 20.6 ml/min; Est GFR (Non-African American) 12.1 ml/min; Globulin 3.2 gm/dl (2.5-4.0); Total Protein 6.9 gm/dl (6.0-8.3)
[2021-06-17] MEDS ORDERED: DEXTROSE 50% 50 ML SYRINGE IV STA (10:13)
[2021-06-17] MEDS ORDERED: SODIUM BICARBONATE 8.4% 150 MEQ in DEXTROSE 5% 1,000 ML IV STA (10:13)
[2021-06-17] MEDS ORDERED: STAT IV STA ×2 (10:13→12:53)
[2021-06-17] MEDS ORDERED: CALCIUM GLUCONATE 10% 1,000 MG in DEXTROSE 5% 50 ML IV STA (10:13)
[2021-06-17] MEDS ORDERED: INSULIN HUMAN REGULAR PER UNIT 10 UNITS in SYRINGE 9.9 ML IV STA (10:13)
--- NOTE | 2021-06-17 10:16 | CT Scan Report ---
CT abd pelvis wo con CLINICAL HISTORY: R flank pain. Status post surgery 06/03/2021 TECHNIQUE: Helical axial images of the abdomen and pelvis were obtained. Automated dose lowering tech niques and/or adjustment according to patient size were utilized for this exam. This exam was perfor med without intravenous contrast. COMPARISON: Comparison is made to CT abdomen pelvis 02/09/2019 FINDINGS: Lower chest: No acute abnormality Liver: Unremarkable. No focal lesions are seen. Gallbladder and biliary tree: No calcified gallstones. Normal caliber wall. No intra- or extrahepatic biliary ductal dilation. Pancreas: Unremarkable, no focal lesions. Spleen: Unremarkable. Adrenals: Unremarkable. Kidneys and ureters: Right hydronephrosis and hydroureter is seen. There is no right nephrolithiasis noted. Nonobstructive stones are seen bilaterally. Multiple exophytic hypodensities are seen on the l eft compatible with cysts. Bladder: Unremarkable. Reproductive organs: Unremarkable. Bowel: Diverticulosis is seen without evidence of diverticulitis. A small hiatal hernia is seen. Lymph nodes Retroperitoneal: Unremarkable. Mesenteric: Unremarkable. Pelvic: Unremarkable. Peritoneum: Normal. Vessels: Atherosclerotic calcifications are seen. Abdominal wall: A fat-containing umbilical hernia is seen. Bones: Degenerative changes in the visualized spine. IMPRESSION: Interval development of right hydronephrosis and hydroureter without evidence of obstructive stone. T his may represent recently passed stone. ACT 112: Negative or not required by law. Electronically signed by: Emeka Hebert M.D. 06/17/2021 10:15 AM
--- NOTE | 2021-06-17 11:08 | History & Physical Report ---
Date of Service June 17, 2021 Assessment & Plan (1) Acute hyperkalemia: Plan: - Admit to tele - Trend BMP Q6H - Given Calcium gluconate, insulin, sodium bicarb in the ER - Consult nephrology, Dr. Galdamez, for hyperkalemia, hydronephrosis, and urology for continued flank pain and urological symptoms with assumed passed kidney stone. CT was negative for obstructive stone. -Will discuss fluids with nephrology (2) CKD (chronic kidney disease), stage IV: Plan: Acute Kidney Injury Cr:4.58 -Chronic, history of such, baseline creatinine was 2.4 prior to his ulnar nerve surgery - reviewed as outpatient (3) Diabetes mellitus type 2 with complications: Plan: - ISS with accuchecks ACHS - Last a1c was 9.5 on 05/25/21, no need to repeat per review of outpatient labs - hold ozempic - Continue Novolin R and Novolin N daily as per [employer] meds (4) Diabetic neuropathy: Plan: - Hx of such, chronic (5) Hypertension: Plan: - Holding olmesartan for now with elevated Cr, Hyperkalemia (6) Dyslipidemia: Plan: - Cont statin therapy (7) Ischemic cardiomyopathy: Plan: - Last echo reviewed showing EF of 35-40%, Follows with Dr. Abarca as an outpatient with cardiology office -Continue baby aspirin, Plavix, atorvastatin, holding Lasix secondary to above (8) CAD (coronary artery disease): Plan: - Cont baby asa and plavix. Holding lasix - pt reports he has not taken this for 3-4 days because he didn't think he was swollen enough to need it. Also reports losing about 20 lbs within the past month due to poor appetite, diarrhea, emotional stressors. (9) Suicidal ideation: Plan: - Pt expressed ideation of suicide via gun while at bedside. Notes he is tired of dealing with the chronic pain. His last living sibling about 1 week ago, his sister. - Lives at home and has gun in the house. - Psych consulted - Previously was given Cymbalta trial however he only took 1-2 doses and then reported that he did not need it anymore. He reports having an entire bottle at home. Patient did not express ideations with overdose of medication to me at bedside. (10) Morbid obesity with BMI of 40.0-44.9, adult: Plan: -BMI of 44.4, diet and exercise to be encouraged once medical conditions improved DVT PPx: - teds, scds, heparin subcu CODE: Full code Dispo: From home, likely to remain in the hospital x 1-2 days History of Present Illness Chief Complaint: R flank pain Primary Care Provider: Ermias Zarate DO This is a 70 yo M with PMhx of CAD, DM type II, CKD stage IV, ischemic cardiomyopathy with an EF of 35 to 40%, recent ulnar nerve decompression surgery earlier this month, history of CVA, diabetic neuropathy, HTN, who presents with right-sided flank pain. Pt notes that on June 03 he had surgery on his right elbow for nerve decompression. The night of the surgery he had severe pain and subsequently due to that took narcotics and became constipated. He then developed right arm numbness. He was given dose pack of methylprednisolone and then developed severe diarrhea. He stopped taking this. His appetite has been significant worse in the past 2 weeks due to nausea and abdominal discomfort along with diarrhea, which is now resolved. His last BM was Tuesday, but has not been taking pain medication. He has had 3 or 4 kidney stones in the past which has been painful. He most recently passed one shortly after this ulnar surgery, June 05. He presented today because of lower right sided back pain, which has been persistent since surgery. It is affecting his sleep. His pain was rated 8/10 but improved now with a dose of morphine. Alleviating factors include heat. His urine seems frequent but the quantity of urine passed at a time is much less. Denies pain with urinating, fever, chills or sweat. Her further reports being depressed and is crying at times throughout the conversation, when asked about code status he reports "thinking about it" and pointing his hands into the shape of a gun and pointing it at his head. He lives alone, but has children who he states could not go through with it because of needing to be here for him. He has guns at home, but only arya when I ask him if he has a plan. Pt denies homicidal ideation. He was previously given Rx for cymbalta but only took 1-2 doses and then didn't finish it. CT abdomen pelvis shows hydronephrosis however no obstructing stone which is suggestive for past kidney stone at this point. He is noted to be hyperkalemic with potassium of 6.1, BUN of 106, creatinine 4.58 and hyponatremic with sodium of 130. His white count is mildly elevated at 11.23. In the ER he was given 1 amp of bicarb, insulin, and calcium gluconate to correct hyperkalemia. Allergies Allergy/AdvReac Type Severity Reaction Status Date / Time losartan Allergy Diarrhea Unverified 06/17/21 09:50 lisinopril AdvReac Severe Cough Verified 12/23/19 20:13 Home Medications Medication Instructions Recorded Confirmed Type amlodipine 10 mg tablet 10 mg PO QAM 06/17/21 06/17/21 History aspirin 81 mg tablet 81 mg PO DAILY 06/17/21 06/17/21 History atorvastatin 80 mg tablet 80 mg PO QAM 06/17/21 06/17/21 History clopidogrel 75 mg tablet 75 mg PO QAM 06/17/21 06/17/21 History furosemide 40 mg tablet 40 mg PO QAM 06/17/21 06/17/21 History gabapentin 300 mg capsule 300 mg PO TID 06/17/21 06/17/21 History hydrocodone 5 mg-acetaminophen 325 5 - 325 tab PO Q6 PRN 06/17/21 06/17/21 History mg tablet insulin NPH isoph U-100 human 100 100 unit SUBCUT UD 06/17/21 06/17/21 History unit/mL subcutaneous suspension (Novolin N NPH U-100 Insulin isophane) insulin regular human 100 unit/mL 100 sliding scale dose SUBCUT UD 06/17/21 06/17/21 History injection solution (Novolin R Regular U-100 Insulin) methylprednisolone 4 mg tablets in 4 mg PO UD 06/17/21 06/17/21 History a dose pack metoprolol succinate 50 mg 50 mg PO QPM 06/17/21 06/17/21 History tablet,extended release 24 hr olmesartan 5 mg tablet 5 mg PO QAM 06/17/21 06/17/21 History semaglutide (Ozempic) See Rx Instructions .ROUTE .COMPLEX 06/17/21 06/17/21 History sildenafil 50 mg tablet 50 mg PO DAILY PRN 06/17/21 06/17/21 History Past Med/Surg History Medical History Cerebrovascular disease stroke 2013 CKD (chronic kidney disease), stage IV Diabetes mellitus type 2 with complications Diabetic neuropathy Dyslipidemia Hypertension Hypertensive heart disease Ischemic cardiomyopathy EF 35-40% Kidney stone Morbid obesity Surgical History H/O knee surgery History of tonsillectomy S/P surgical manipulation of ankle joint Stented coronary artery JOAO placement to the Circumflex, Proximal LAD and mid LAD 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 Social History Smoking Status: Never smoker Second Hand Exposure: No; Hx Alcohol Use: No Hx Substance Use: No Preferred Language: Korean Communication Ability: Effective 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 No pain, nausea, vomiting, diarrhea, + constipation : as per HPI. No hematuria Back: R lower back pain. Musculoskeletal: R arm s/p ulnar nerve surgery, L arm with numbness and tingling, No other joint pain, calf pain, swelling Neurologic: No weakness, numbness/tingling, or balance problems Psychiatric: + depression Skin: No rash or itch Physical Exam Physical Exam: General: awake, alert, tearful, no acute distress, + obese with BMI of 44.4 Head: Normocephalic, atraumatic ENT: PERRL, EOMI, no pharyngeal exudate, mucous membranes moist Chest: Clear to auscultation, on room air, no adventitious breath sounds Cardiac: Regular rate and rhythm, no murmur, no JVD, normal peripheral pulses, good capillary refill Abdominal: NABS x 4 quadrants, soft, nondistended, slightly tender to palpation in the LLQ, no rebound or guarding Back: no CVA tenderness, + tenderness over R SI joint Extremities: Normal inspection, no peripheral edema or erythema, calfs nontender to palpation Psych: depressed mood and affect, tearful, +suicidal ideation, no homicidal ideation Neuro: AAO x 3, strength intact bilaterally and rated 5/5, no motor deficits, speech is clear, no peripheral sensory deficits Results & Data Results & Data ([facility]) Vital Signs (Past 12 Hours) Vital Signs Temp Pulse Resp BP Pulse Ox 06/17/21 08:52 36.5 C 86 16 124/73 98 Laboratory Results 06/17/21 06/17/21 06/17/21 Unknown 09:28 09:28 WBC 11.23 H RBC 4.12 L Hgb 12.5 L Hct 34.7 L MCV 84.2 MCH 30.3 MCHC 36.0 RDW Std Deviation 39.3 RDW Coeff of Nasim 12.9 Plt Count 234 MPV 9.6 Immature Gran % (Auto) 0.9 Neut % (Auto) 67.7 Lymph % (Auto) 17.5 [place] % (Auto) 11.3 Eos % (Auto) 2.4 Baso % (Auto) 0.2 Neut # (Auto) 7.61 H Lymph # (Auto) 1.96 [place] # (Auto) 1.27 H Eos # (Auto) 0.27 Baso # (Auto) 0.02 Immature Gran # (Auto) 0.10 H Sodium 130 L Potassium 6.1 H* Chloride 107 Carbon Dioxide 12 L Anion Gap 11 BUN 106 H Creatinine 4.58 H* Est Cr Clr Drug Dosing 20.6 Est GFR ( Amer) 14.0 Est GFR (Non-Af Amer) 12.1 BUN/Creatinine Ratio 23.1 H Glucose 151 H Calcium 8.6 Total Bilirubin 0.5 AST 14 ALT 23 Alkaline Phosphatase 97 Total Protein 6.9 Albumin 3.7 Globulin 3.2 Albumin/Globulin Ratio 1.2 Lipase 82 SARS-CoV-2, RNA, NAAT NEGATIVE Diagnostic Findings Abdomen/Pelvis CT 06/17/21 09:09 CT abd pelvis wo con CLINICAL HISTORY: R flank pain. Status post surgery 06/03/2021 TECHNIQUE: Helical axial images of the abdomen and pelvis were obtained. Automated dose lowering techniques and/or adjustment according to patient size were utilized for this exam. This exam was performed without intravenous contrast. COMPARISON: Comparison is made to CT abdomen pelvis 02/09/2019 FINDINGS: Lower chest: No acute abnormality Liver: Unremarkable. No focal lesions are seen. Gallbladder and biliary tree: No calcified gallstones. Normal caliber wall. No intra- or extrahepatic biliary ductal dilation. Pancreas: Unremarkable, no focal lesions. Spleen: Unremarkable. Adrenals: Unremarkable. Kidneys and ureters: Right hydronephrosis and hydroureter is seen. There is no right nephrolithiasis noted. Nonobstructive stones are seen bilaterally. Multiple exophytic hypodensities are seen on the left compatible with cysts. Bladder: Unremarkable. Reproductive organs: Unremarkable. Bowel: Diverticulosis is seen without evidence of diverticulitis. A small hiatal hernia is seen. Lymph nodes Retroperitoneal: Unremarkable. Mesenteric: Unremarkable. Pelvic: Unremarkable. Peritoneum: Normal. Vessels: Atherosclerotic calcifications are seen. Abdominal wall: A fat-containing umbilical hernia is seen. Bones: Degenerative changes in the visualized spine. IMPRESSION: Interval development of right hydronephrosis and hydroureter without evidence of obstructive stone. This may represent recently passed stone. ACT 112: Negative or not required by law. Electronically signed by: Emeka Hebert M.D. 06/17/2021 10:15 AM Code Status & VTE Plan Code Status Full code - discussed with pt at bedside. Supervising Physician Co-Signing Physician Notes Patient is a 70-year-old male with multiple comorbidities presents with history of right flank pain, increased urinary frequency, constipation. Patient states having right elbow surgery recently and was placed on pain medications resulting in constipation. He admits to passing kidney stones about 2 weeks ago. He also states having right flank pain is gradually getting worse since last few days. Currently tearful during my encounter in ED, admits to having suicidal thoughts but denies any plan. Patient feels depressed, recent loss of family member. Please review HPI for complete details of presentation. Blood work suggestive of leukocytosis 11 K, hyperkalemia 6.1, hyponatremia 130, metabolic acidosis with bicarb 12, acute kidney injury with creatinine elevated at 4.58, glucose 151. EKG showed sinus rhythm with first-degree AV block, left axis deviation, bifascicular block, QTC 461. Patient received bicarbonate, dextrose with insulin, calcium gluconate while in ED. CT abdomen showed right hydronephrosis and hydroureter without evidence of obstructive stone. On exam patient is morbidly obese, no apparent distress, normocephalic atraumatic, EOMI, normal breath sounds, clear to auscultation, S1-S2, no murmur, 1+ bilateral lower extremity edema, abdomen soft, mild generalized tenderness, no guarding or rigidity, normal bowel sounds, right flank tender, alert, awake, oriented, grossly no focal deficits. Patient is admitted for management of acute kidney Injury on CKD IV, hyperkalemia, metabolic acidosis, hyponatremia, obstructive uropathy, constipation and depression. Will start on IV fluids with bicarbonate. Hold nephrotoxic agents including Lasix and olmesartan. Monitor BMP closely. Nephrology and Urology consulted. May need ureteral stent placement given persistent of symptoms. Consider antibiotics if urine analysis suggestive of UTI. Will recheck renal ultrasound tomorrow. Bladder scan as needed. Repeat EKG as needed and tomorrow. Bowel regimen ordered. Psychiatry consulted to help with depression. I personally reviewed the record. Patient is interviewed and examined at bedside. Patient's care is coordinated with Sofiya Barrios PA-C. Please refer to the documentation above for details of patient's presentation and for discussion of other issues.
[2021-06-17] MEDS ORDERED: SODIUM BICARBONATE 8.4% 75 MEQ in SODIUM CHLORIDE 0.45 % 1,000 ML IV SCH (13:00)
[2021-06-17] MEDS ORDERED: SODIUM BICARBONATE 8.4% 150 MEQ in SODIUM CHLORIDE 0.45 % 1,000 ML IV SCH (13:06)
--- NOTE | 2021-06-17 13:25 | Urology Consultation ---
Date of Consultation June 17, 2021 Assessment & Plan (1) Hydronephrosis of right kidney: (2) Acute kidney injury: 70yo M admitted with intractable right flank pain, GRIFFIN, hyperkalemia, and right-sided hydronephrosis without obstructing stone on CT imaging. - Plan of care reviewed with Dr. Nam, on-call urologist. - CTAP with right hydronephrosis and hydroureter without evidence of obstructive stone, possibly representing recently passed stone. - Pt afebrile, hemodynamically stable. - Labs reviewed - Wbc 11.23, Creatinine up to 4.58 (baseline creatinine was around 2.4) - Discussed acute surgical intervention with stent placement given his persistent flank pain and renal function. Risks/benefits of this discussed. Pt agreeable to proceeding. - Given his intractable flank pain and GRIFFIN with right- sided hydronephrosis, will proceed to OR for cystoscopy, right retrograde pyelogram, right ureteral stent placement. - Risks and benefits to be reviewed with patient by Dr. Nam. OR notified. Covid test negative. Will cover with IV Ancef preoperatively. - Keep NPO. - Continue supportive care and management per primary team. - Will continue to follow. - Please see attending note for further details. Supervising Physician Co-Signing Physician Notes I have discussed Lenore's case with STEPHIE Penaloza and agree with the above documentation. The finding of hydronephrosis is new on the right side since his prior CT scan. Combining that with his ongoing right-sided flank pain and worsening renal function, we discussed that it would be reasonable to place a ureteral stent on the right side. We discussed the risks and benefits of this procedure. We discussed the risk of bleeding, infection, inability to place the stent, need for additional procedures, injury to the urinary tract, stent di scomfort, as well as the chance that the stent will not alleviate his pain. He expressed understanding and agreed to proceed with right ureteral stent placement. History of Present Illness Reason for Consultation: Hydronephrosis, no obstructing stone History of Present Illness 70yo M with a PMhx of CAD, DM type II, CKD stage IV, ischemic cardiomyopathy, recent ulnar nerve decompression surgery earlier this month, history of CVA, diabetic neuropathy, HTN, who presented to the ED today with right-sided flank pain. A CT abdomen pelvis was obtained and notable for right hydronephrosis and hydroureter without evidence of obstructive stone. Urology consulted for hydronephrosis without obstructing stone. CT abdomen pelvis IMPRESSION: Interval development of right hydronephrosis and hydroureter without evidence of obstructive stone. This may represent recently passed stone. On presentation, he was afebrile, hyperkalemic with potassium of 6.1, BUN of 106, creatinine 4.58 and hyponatremic with sodium of 130. His white count mildly elevated at 11.23.In the ER he was given 1 amp of bicarb, insulin, and calcium gluconate to correct hyperkalemia and admitted to medicine for further management. Pt examined at bedside in the ED. Awake, resting in bed on arrival. No acute distress. Tearful at time of exam. Pt reports that his right flank pain started shortly after his ulnar surgery, approximately June 05-. He reports passing a few small stones at that time as well. He reports the pain has been persistent, and presented today as it is now affecting his sleep and ability to concentrate. Denies fevers or chills. Denies nausea/vomiting at present. Still with right flank pain, but improved with IV pain medication. He is voiding spontaneously, but reports decreased quantity of urine passed. He does have a hx of kidney stones with spontaneous passage. He denies prior surgical intervention for stones. No pertinent family hx noted. Allergies Allergy/AdvReac Type Severity Reaction Status Date / Time losartan Allergy Diarrhea Unverified 06/17/21 09:50 lisinopril AdvReac Severe Cough Verified 12/23/19 20:13 Home Medications Medication Instructions Recorded Confirmed Type amlodipine 10 mg tablet 10 mg PO QAM 06/17/21 06/17/21 History aspirin 81 mg tablet 81 mg PO DAILY 06/17/21 06/17/21 History atorvastatin 80 mg tablet 80 mg PO QAM 06/17/21 06/17/21 History clopidogrel 75 mg tablet 75 mg PO QAM 06/17/21 06/17/21 History furosemide 40 mg tablet 40 mg PO QAM 06/17/21 06/17/21 History gabapentin 300 mg capsule 300 mg PO TID 06/17/21 06/17/21 History hydrocodone 5 mg-acetaminophen 325 5 - 325 tab PO Q6 PRN 06/17/21 06/17/21 History mg tablet insulin NPH isoph U-100 human 100 100 unit SUBCUT UD 06/17/21 06/17/21 History unit/mL subcutaneous suspension (Novolin N NPH U-100 Insulin isophane) insulin regular human 100 unit/mL 100 sliding scale dose SUBCUT UD 06/17/21 06/17/21 History injection solution (Novolin R Regular U-100 Insulin) methylprednisolone 4 mg tablets in 4 mg PO UD 06/17/21 06/17/21 History a dose pack metoprolol succinate 50 mg 50 mg PO QPM 06/17/21 06/17/21 History tablet,extended release 24 hr olmesartan 5 mg tablet 5 mg PO QAM 06/17/21 06/17/21 History semaglutide (Ozempic) See Rx Instructions .ROUTE .COMPLEX 06/17/21 06/17/21 History sildenafil 50 mg tablet 50 mg PO DAILY PRN 06/17/21 06/17/21 History Patient History Medical History Cerebrovascular disease stroke 2013 CKD (chronic kidney disease), stage IV Diabetes mellitus type 2 with complications Diabetic neuropathy Dyslipidemia Hypertension Hypertensive heart disease Ischemic cardiomyopathy EF 35-40% Kidney stone Morbid obesity Surgical History H/O knee surgery History of tonsillectomy S/P surgical manipulation of ankle joint Stented coronary artery JOAO placement to the Circumflex, Proximal LAD and mid LAD 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 Social History Smoking Status: Never smoker Second Hand Exposure: No; Hx Alcohol Use: No Hx Substance Use: No Preferred Language: Moldovan Communication Ability: Effective Cardiac Tech Required: No Beliefs That Will Affect Care: None marital status: Current Living Situation: Alone current occupational status: retired current occupation: Retired Feels Safe at Home: Yes Assistive Devices: Oxygen - Continuous Review of Systems Review of Systems: All systems reviewed & are unremarkable except as noted in HPI & below Physical Exam Constitutional: well developed, well nourished and + obese; no acute distress Neck: normal visual inspection Respiratory: normal respiratory effort; no respiratory distress and no labored breathing Gastrointestinal (Abdomen): Inspection/Auscultation: abdomen normal to inspection Percussion/Palpation: abdomen soft; abdomen nontender Musculoskeletal: Head/Neck/Chest: normocephalic Skin: Warm and dry Neurologic: moves all extremities and awake Psychiatric: Orientation: alert, oriented x 3 and cooperative Affect: + tearful affect Genitourinary: + CVA tenderness (Mild right flank tenderness with palpation) Results & Data ([facility]) Vital Signs (Past 12 Hours) Vital Signs Temp Pulse Resp BP Pulse Ox 06/17/21 12:00 86 150/96 H 98 06/17/21 11:42 91 H 147/86 H 97 06/17/21 11:30 87 16 97 06/17/21 11:00 85 14 178/89 H 97 06/17/21 10:30 77 18 151/75 H 97 06/17/21 10:00 80 17 143/74 H 96 06/17/21 08:52 36.5 C 86 16 124/73 98 PG Care Time/CCT Total # of Minutes Spent Total Time Spent with Patient: Total time spent is greater than 50% in coordination of care (as documented) at patient's floor/unit and/or counseling patient: Coding Level of Care Code 21912 Initial Inpt Care Lvl 2 Diagnoses Hydronephrosis of right kidney N13.30 Acute kidney injury N17.9
[2021-06-17] MEDS ORDERED: MIDAZOLAM HCL 1 MG/ML 2ML VIAL ONE (13:28)
[2021-06-17] MEDS ORDERED: fentaNYL citrate 100 MCG/2 ML VIAL ONE (13:28)
[2021-06-17] MEDS ORDERED: PROPOFOL IV EMULSION 10 MG/ML 20 ML VIAL IV ONE ×2 (13:30→16:12)
[2021-06-17] MEDS ORDERED: LIDOCAINE 2% 2 ML VIAL/AMP(20MG/ML) INFIL ONE (13:30)
[2021-06-17] MEDS ORDERED: ONDANSETRON INJ 2 MG/ML 2 ML VIAL ONE (13:30)
[2021-06-17 13:39] LABS: Appearance Urine Clear (Clear); Bacteria Urine Automated Negative (Negative); Bilirubin Urine Negative (Negative); Blood Urine Trace (Negative); Color Urine Yellow; Epithelial Cell Urine Auto 0-5 /lpf (0-5); Glucose Urine UA Negative (Negative); Ketones Urine Negative (Negative); Leukocyte Esterase Urine Negative (Negative); Nitrite Urine Negative (Negative); Protein Urine 1+ (Negative); RBC Urine Automated 0-4 /hpf (0-4); Specific Gravity Urine 1.009 (1.000-1.030); Urobilinogen Urine Negative (Negative)
[2021-06-17] MEDS ORDERED: OLMESARTAN 5 MG PO SCH (13:39)
[2021-06-17] MEDS ORDERED: GLUCAGON FOR INJ 1 MG VIAL SQ PRN (13:39)
[2021-06-17] MEDS ORDERED: CARBOHYDRATES FOR HYPOGLYCEMIA PO PRN (13:39)
[2021-06-17] MEDS ORDERED: HYDROCODONE/ACETAMOPHEN 5/325MG TAB PO PRN (13:39)
[2021-06-17] MEDS ORDERED: GLUCOSE 40% GEL 15 GM TUBE PO PRN (13:39)
[2021-06-17] MEDS ORDERED: MoRPHine SULFATE 2 MG/ML CARP IV PRN (13:39)
[2021-06-17] MEDS ORDERED: DEXTROSE 50% 50 ML SYRINGE IV PRN (13:39)
[2021-06-17] MEDS ORDERED: ACETAMINOPHEN 325 MG TAB PO PRN (13:39)
[2021-06-17] MEDS ORDERED: NovoLIN-R INSULIN PER UNIT CHARGE SQ SCH (13:39)
[2021-06-17] MEDS ORDERED: POLYETHYLENE (MIRALAX) 17 GM PACK PO PRN (13:39)
[2021-06-17] MEDS ORDERED: PHARMACY GLYCEMIC MGMT CONSULT PRN (13:39)
[2021-06-17] MEDS ORDERED: ONDANSETRON INJ 2 MG/ML 2 ML VIAL IV PRN ×2 (13:39→14:34)
[2021-06-17] MEDS ORDERED: GLUCOSE 10 TABS/TUBE PO PRN (13:39)
--- NOTE | 2021-06-17 13:44 | Nephrology Consultation ---
Date of Consultation June 17, 2021 History of Present Illness Reason for Consultation: GRIFFIN, hyperkalemia Requesting Physician: Dr Rubi Attending Physician: Cem Rubi MD History of Present Illness 70 y/o M whom I'm asked to see for GRIFFIN and hyperkalemia presented to ER today for evaluation of R flank pain. 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 Pt had R cubital tunnel surgery done 06/03. Told ER he'd been having stuttering flank pain since then. He did call into CKD clinic on 06/15 w/ concern for diarrhea, poor po intake, abdominal and back pain along with report he may have passed some stones recently. Labs were obtained yesterday (similar to those today) and he had an urgent PCP appt set up w/ plan for ER eval if sx worsened. b Allergies Allergy/AdvReac Type Severity Reaction Status Date / Time losartan Allergy Diarrhea Unverified 06/17/21 09:50 lisinopril AdvReac Severe Cough Verified 12/23/19 20:13 Home Medications Medication Instructions Recorded Confirmed Type amlodipine 10 mg tablet 10 mg PO QAM 06/17/21 06/17/21 History aspirin 81 mg tablet 81 mg PO DAILY 06/17/21 06/17/21 History atorvastatin 80 mg tablet 80 mg PO QAM 06/17/21 06/17/21 History clopidogrel 75 mg tablet 75 mg PO QAM 06/17/21 06/17/21 History furosemide 40 mg tablet 40 mg PO QAM 06/17/21 06/17/21 History gabapentin 300 mg capsule 300 mg PO TID 06/17/21 06/17/21 History hydrocodone 5 mg-acetaminophen 325 5 - 325 tab PO Q6 PRN 06/17/21 06/17/21 History mg tablet insulin NPH isoph U-100 human 100 100 unit SUBCUT UD 06/17/21 06/17/21 History unit/mL subcutaneous suspension (Novolin N NPH U-100 Insulin isophane) insulin regular human 100 unit/mL 100 sliding scale dose SUBCUT UD 06/17/21 06/17/21 History injection solution (Novolin R Regular U-100 Insulin) methylprednisolone 4 mg tablets in 4 mg PO UD 06/17/21 06/17/21 History a dose pack metoprolol succinate 50 mg 50 mg PO QPM 06/17/21 06/17/21 History tablet,extended release 24 hr olmesartan 5 mg tablet 5 mg PO QAM 06/17/21 06/17/21 History semaglutide (Ozempic) See Rx Instructions .ROUTE .COMPLEX 06/17/21 06/17/21 History sildenafil 50 mg tablet 50 mg PO DAILY PRN 06/17/21 06/17/21 History Patient History Medical History Cerebrovascular disease stroke 2013 CKD (chronic kidney disease), stage IV Diabetes mellitus type 2 with complications Diabetic neuropathy Dyslipidemia Hypertension Hypertensive heart disease Ischemic cardiomyopathy EF 35-40% Kidney stone Morbid obesity Surgical History H/O knee surgery History of tonsillectomy S/P surgical manipulation of ankle joint Stented coronary artery JOAO placement to the Circumflex, Proximal LAD and mid LAD with a CATERING DIRECTOR of his RCA Social History Smoking Status: Never smoker Second Hand Exposure: No; Hx Alcohol Use: No Hx Substance Use: No Preferred Language: Kyrgyz Communication Ability: Effective [employer] Required: No Beliefs That Will Affect Care: None marital status: Current Living Situation: Alone current occupational status: retired current occupation: Retired Feels Safe at Home: Yes Assistive Devices: Oxygen - Continuous Results & Data ([facility]) Vital Signs (Past 12 Hours) Vital Signs Temp Pulse Resp BP Pulse Ox 06/17/21 12:00 86 150/96 H 98 06/17/21 11:42 91 H 147/86 H 97 06/17/21 11:30 87 16 97 06/17/21 11:00 85 14 178/89 H 97 06/17/21 10:30 77 18 151/75 H 97 06/17/21 10:00 80 17 143/74 H 96 06/17/21 08:52 36.5 C 86 16 124/73 98
[2021-06-17] MEDS ORDERED: SODIUM BICARBONATE 8.4% 75 MEQ in SODIUM CHLORIDE 0.45 % 1,000 ML IV STA (14:13)
[2021-06-17] MEDS ORDERED: ATROPINE SULFATE 0.1 MG/ML 10ML SYR IV PRN (14:34)
[2021-06-17] MEDS ORDERED: ePHEDrine sulfate 50 MG/ML AMP IV PRN (14:34)
--- NOTE | 2021-06-17 14:37 | Anesthesiology Consultation ---
Date of Service June 17, 2021 Assessment & Plan (1) Encounter for pre-operative examination: Chart Review Chart Review: Pending: Refer to Additional Notes / Consult section and Patient NOT seen in Pre Admission Testing Consults Requested none History Surgery Operation Date: 06/17/21 14:25 Proposed Procedures p Cystoscopy Stent Placement - Ian Nma MD Height/Weight Height: 5 ft 9 in Weight: 136.5 kg Allergies Allergy/AdvReac Type Severity Reaction Status Date / Time losartan Allergy Diarrhea Unverified 06/17/21 09:50 lisinopril AdvReac Severe Cough Verified 12/23/19 20:13 Medications Home Medications Medication Instructions Recorded Confirmed Last Taken amlodipine 10 mg tablet 10 mg PO QAM 06/17/21 06/17/21 06/16/21 aspirin 81 mg tablet 81 mg PO DAILY 06/17/21 06/17/21 06/16/21 atorvastatin 80 mg tablet 80 mg PO QAM 06/17/21 06/17/21 06/16/21 clopidogrel 75 mg tablet 75 mg PO QAM 06/17/21 06/17/21 06/16/21 furosemide 40 mg tablet 40 mg PO QAM 06/17/21 06/17/21 Unknown gabapentin 300 mg capsule 300 mg PO TID 06/17/21 06/17/21 06/16/21 hydrocodone 5 mg-acetaminophen 325 5 - 325 tab PO Q6 PRN 06/17/21 06/17/21 06/03/21 mg tablet insulin NPH isoph U-100 human 100 100 unit SUBCUT UD 06/17/21 06/17/21 06/16/21 unit/mL subcutaneous suspension (Novolin N NPH U-100 Insulin isophane) insulin regular human 100 unit/mL 100 sliding scale dose SUBCUT UD 06/17/21 06/17/21 06/17/21 injection solution (Novolin R Regular U-100 Insulin) methylprednisolone 4 mg tablets in 4 mg PO UD 06/17/21 06/17/21 Unknown a dose pack metoprolol succinate 50 mg 50 mg PO QPM 06/17/21 06/17/21 06/16/21 tablet,extended release 24 hr olmesartan 5 mg tablet 5 mg PO QAM 06/17/21 06/17/21 06/16/21 semaglutide (Ozempic) See Rx Instructions .ROUTE .COMPLEX 06/17/21 06/17/21 Unk nown sildenafil 50 mg tablet 50 mg PO DAILY PRN 06/17/21 06/17/21 Unknown Past Medical History Medical History Cerebrovascular disease stroke 2013 CKD (chronic kidney disease), stage IV Diabetes mellitus type 2 with complications Diabetic neuropathy Dyslipidemia Hypertension Hypertensive heart disease Ischemic cardiomyopathy EF 35-40% Kidney stone Morbid obesity Past Surgical History Surgical History H/O knee surgery History of tonsillectomy S/P surgical manipulation of ankle joint Stented coronary artery JOAO placement to the Circumflex, Proximal LAD and mid LAD with a WEIGHT AND BALANCE CONTROL AGENT of his RCA Social History Smoking Status: Never smoker Hx Alcohol Use: No Hx Substance Use: No Physical Exam Vital Signs Last Vital Signs Temp 36.3 C L 06/17/21 14:11 Pulse 89 06/17/21 14:11 Resp 18 06/17/21 14:11 BP 127/78 06/17/21 14:11 Pulse Ox 99 06/17/21 14:11 Testing Laboratory Results 06/17/21 09:28 Urine Color Yellow 06/17/21 Unknown Urine Appearance Clear (Clear) 06/17/21 Unknown Urine pH 5.0 (4.5-7.5) 06/17/21 Unknown Ur Specific [place] 1.009 (1.000-1.030) 06/17/21 Unknown Urine Protein 1+ (Negative) H 06/17/21 Unknown Urine Glucose (UA) Negative (Negative) 06/17/21 Unknown Urine Ketones Negative (Negative) 06/17/21 Unknown Urine Nitrite Negative (Negative) 06/17/21 Unknown Ur Leukocyte Esterase Negative (Negative) 06/17/21 Unknown Urine WBC (Auto) 1-5 /hpf (0-5) 06/17/21 Unknown Urine RBC (Auto) 0-4 /hpf (0-4) 06/17/21 Unknown U Hyaline Cast (Auto) 1-5 /lpf (0-5) 06/17/21 Unknown U Epithel Cells (Auto) 0-5 /lpf (0-5) 06/17/21 Unknown Urine Bacteria (Auto) Negative (Negative) 06/17/21 Unknown 06/17/21 14:13 POC Glucose 118 H Laboratory Tests 06/17/21 09:28 Sodium 130 L Potassium 6.1 H* Chloride 107 Carbon Dioxide 12 L BUN 106 H Creatinine 4.58 H* Glucose 151 H Electrocardiogram Date: 06/17/21 Sinus rhythm with 1st degree A-V block Left axis deviation Right bundle branch block Inferior infarct (cited on or before 23-DEC-2019) Abnormal ECG When compared with ECG of 25-DEC-2019 06:20, T wave inversion no longer evident in Inferior leads Nonspecific T wave abnormality no longer evident in Lateral leads
[2021-06-17] MEDS ORDERED: INSULIN HUMAN NPH SC ONE (14:45)
[2021-06-17] MEDS ORDERED: SODIUM CHLORIDE 0.9% 1000ML 1,000 ML IV SCH (14:45)
[2021-06-17] MEDS ORDERED: INSULIN HUMAN NPH SC SCH (14:45)
[2021-06-17] MEDS ORDERED: MoRPHine SULFATE 2 MG/ML CARP IV STA (14:52)
[2021-06-17] MEDS ORDERED: MoRPHine SULFATE 4 MG/ML 1 ML CARP\\VIAL ONE (14:54)
--- NOTE | 2021-06-17 14:54 | Pharmacy Report ---
Pharmacy Glycemic Short Note 2 - Date of Service June 17, 2021 - Glycemic Short BSG Results (Last 24 hours): 06/17/21 06/17/21 09:28 14:13 Glucose 151 H POC Glucose 118 H OUTPATIENT ANTIDIABETIC REGIMEN: * NPH 25 units SC at noon and midnight (confirmed by Berenice Barrios) * Regular insulin 15 units SC TIDM * Semaglutide * HbA1c 9.5% on 05/25/21 ASSESSMENT: * 70 yo M with T2DM admitted with hyperkalemia and is currently NPO for ureteral stent placement * Discussed with Berenice Barrios - given BSG's in range at this time without anticipated additional stressors other than noted above, OK to continue NPH at similar to home dose, with the exception of a one-time lower dose now for NPO status. Will adjust ongoing based on trend in BSG * Will initiate Novolog at slightly looser than weight-based moderate stress estimate to help prevent hypoglycemia with peaks/troughs of NPH for now, given current NPO status and euglycemia (although anticipate diet will be ordered post-op) PLAN FOR INPATIENT GLYCEMIC CONTROL: * Hold outpatient oral diabetes medications * Basal insulin * NPH 10 units SC x1 now, then 20-25 units @ 0000,1200 depending on BSG (and assuming diet ordered) * Bolus insulin * NovoLog per scale ACHS or Q6hrs while NPO * Goal Range: Low 110 mg/dL - High 140 mg/dL * Correction Factor: 20 mg/dL/unit * Nutritional / Prandial insulin per carb ratio of 1 unit per 7 grams CHO consumed
[2021-06-17 15:01] LABS: BUN Creatinine Ratio 23.1 (10-20); Calcium 8.7 mg/dl (8.5-10.1); Creatinine Clr Calc Pharmacy 21.2 ml/min; Est GFR (African American) 14.5 ml/min; Est GFR (Non-African American) 12.5 ml/min; Potassium 5.8 mmol/L (3.5-5.1)
[2021-06-17] MEDS ORDERED: CALCIUM CHLORIDE 10% 10 ML SYR IV ONE (15:10)
[2021-06-17] MEDS ORDERED: KETAMINE 50 MG/5 ML SYRINGE ONE (15:52)
--- NOTE | 2021-06-17 16:29 | Operative Report ---
PG Post Operative Report Pre & Post Diagnosis Operation Date: 06/17/21 14:25 Pre-Op Diagnosis: right hydronephrosis Post-Op Diagnosis: right hydronephrosis, distal right ureteral stone I identified the patient and participated in the time-out.: Yes Procedure Operation Date: 06/17/21 14:25 Actual Procedures p Meatal dilation, Cystoscopy, Stent Placement, Right (Right) - Ian Nam MD Surgeon Ian Nam MD Base Cloth Inspector None Estimated Blood Loss 0 Findings See Below Stone visualized at the right ureteral orifice, could not be dislodged with a 5 Israeli open-ended catheter or easily withdrawn with the Nitinol basket. Stent was left in place with drainage of turbid urine once right ureteral stent was placed. Specimens None Drains 16 Israeli Kiran catheter per urethra attached to gravity drainage. 6 Israeli by 26 cm double-J ureteral stent in the right ureter Anesthesia Type MAC Complications none Disposition Disposition: Recovery Room Indications This is a 70-year-old male who presented to the emergency department with ongoing right-sided flank pain and new hydronephrosis from prior CT scan. Creatinine was elevated above 4 and he was having some electrolyte dysregulation. He is being brought to the OR for right ureteral stent placement for maximal urinary drainage. Description of Procedure The patient was identified in the holding area and informed consent was confirmed. They were marked on the right side, then were taken to the operating room where MAC anesthesia was initiated. They were placed in the dorsal lithotomy position with all pressure points appropriately padded. They were prepped and draped in the usual sterile fashion and a preoperative timeout was performed. His urethral meatus was small in caliber and initially would not accept the cystoscope. Urethral dilation was performed from 20-26 Israeli using curved sounds. A well lubricated cystoscope was inserted per urethra and panendoscopy was performed. The pendulous urethra was normal with no strictures or mucosal abnormalities. His prostate was somewhat enlarged. The bladder was mildly trabeculated. Ureteral orifices were noted in orthotopic position bilaterally. The right ureteral orifice was somewhat heaped up and within the lumen there appeared to be a stone. No tumors or stones were appreciated within the bladder. A 5 Israeli open-ended catheter was used to attempt to dislodge the stone from the ureteral orifice, however this was successful. I used the Nitinol wire basket to attempt to grasp the stone, however the tip of the basket would not advance past the stone. With his elevated creatinine and electrolyte abnormalities, I did not want to spend too much time under anesthesia, therefore elected to prioritize renal drainage with stent placement rather than spending significant time on stone removal. A 0.038 inch zip wire was advanced past the stone at the ureteral orifice up into the proximal ureter and collecting system under fluoroscopic guidance. The open-ended catheter was then advanced over the wire and Cystografin was injected to perform a retrograde pyelogram. The proximal ureter was normal in course. There was some dilation of the proximal ureter and kidney. There were no filling defects appreciated. The wire was then readvanced and over the wire, a 6 Israeli x 26 centimeter double-J ureteral stent was advanced. When the wire was removed, the proximal curl was visualized in the kidney with x-ray, and the distal curl visualized in the bladder with the cystoscope. The cystoscope was removed. A 16 Israeli Kiran catheter was placed with 10 mL in the balloon and attached to gravity drainage. This was left to allow for maximal decompression of the urinary tract. The patient was then awakened from anesthesia and was brought to the PACU in stable condition. I attest to the content of the Intraoperative Record and any orders documented therein. Any exceptions are noted below.
--- NOTE | 2021-06-17 16:39 | Anesthesiology Progress Note ---
Date of Service June 17, 2021 Anesthesia Post Procedure Vital Signs Vital Signs: Temp Pulse Pulse Resp BP BP Pulse Ox 06/17/21 14:30 36.5 C 89 18 176/97 H 99 06/17/21 14:11 36.3 C L 89 18 127/78 99 06/17/21 13:20 92 H 06/17/21 12:00 86 150/96 H 98 06/17/21 11:42 91 H 147/86 H 97 06/17/21 11:30 87 16 97 06/17/21 11:00 85 14 178/89 H 97 06/17/21 10:30 77 18 151/75 H 97 06/17/21 10:00 80 17 143/74 H 96 06/17/21 08:52 36.5 C 86 16 124/73 98 Transfer of Care Handoff Completed per policy Notes Mental Status: alert / awake / arousable and participated in evaluation Patient Amnestic to Procedure: Yes Nausea / Vomiting: adequately controlled Pain: adequately controlled Airway Patency, RR, SpO2: stable & adequate BP & HR: stable & adequate Hydration State: stable & adequate Anesthetic Complications: no major complications apparent and Pt Satisfied with anesthetic care Notes: Patient remained stable throughout procedure without any s/s of hyperkalemic effects on heart rhythm. He received 10 units NPH insulin preop SQ and BSG stable after surgery. He also received intraop calcium for its cardioprotective effects. Bicarb infusion was maintained during procedure. Hospitalist team already managing hyperkalemia.
--- NOTE | 2021-06-17 16:42 | Fluoroscopy Report ---
FL retrograde includes kub CLINICAL HISTORY: CYSTO AND STENT PLACEMENT TECHNIQUE: 3 views were obtained with the C-arm in the OR with the above procedure. Total fluoroscopy time was 5.2 seconds. Total skin dose was 3.49 mGy. Comparison: None available at the time of this dictation. FINDINGS/IMPRESSION: Intraoperative images were obtained of retrograde cystogram with right stent crystal cement. Please correlate with intraoperative fluoroscopy and operative report. ACT 112: Negative or not required by law. Electronically signed by: Emeka Hebert M.D. 06/17/2021 4:40 PM
[2021-06-17] MEDS ORDERED: LIDOCAINE 2% JELLY 5 ML TUBE ONE (16:53)
[2021-06-17] MEDS: fentaNYL citrate 100 MCG/2 ML VIAL IV PRN ×2 (17:03→17:08)
[2021-06-17] MEDS: GABAPENTIN 300 MG CAP PO SCH ×2 (18:17→20:12)
[2021-06-17] MEDS: INSULIN ASPART PER UNIT SC SCH ×3 (18:18→21:37)
[2021-06-17] MEDS: HEPARIN SOD 5,000 UNIT/0.5 ML VIAL SQ SCH ×2 (18:19→21:43)
[2021-06-17] MEDS ORDERED: PHENAZOPYRIDINE HCL 100 MG TAB PO PRN (18:41)
--- NOTE | 2021-06-17 18:57 | Communication Note ---
Date of Service: June 17, 2021 Attempted to see patient but he was in OR approx 1630; will see/do consult tomorrow.
[2021-06-17 20:01] LABS: BUN Creatinine Ratio 25.3 (10-20); Calcium 8.9 mg/dl (8.5-10.1); Creatinine Clr Calc Pharmacy 23.8 ml/min; Est GFR (African American) 16.7 ml/min; Est GFR (Non-African American) 14.4 ml/min; Potassium 5.9 mmol/L (3.5-5.1)
[2021-06-17] MEDS: DOCUSATE SODIUM 100 MG CAP PO SCH (20:11)
[2021-06-17] MEDS: METOPROLOL SUCC 50MG EXT REL TAB PO SCH (20:11)
[2021-06-17] MEDS ORDERED: ZOLPIDEM TARTRATE 5 MG TAB PO STA (22:16)
[2021-06-18] MEDS: INSULIN HUMAN NPH SC SCH ×2 (00:15→13:00)
[2021-06-18] MEDS ORDERED: SODIUM BICARBONATE 8.4% 75 MEQ in SODIUM CHLORIDE 0.45 % 1,000 ML IV SCH (01:00)
[2021-06-18 01:52] LABS: BUN Creatinine Ratio 28.2 (10-20); Calcium 8.5 mg/dl (8.5-10.1); Creatinine Clr Calc Pharmacy 27.4 ml/min; Est GFR (African American) 19.8 ml/min; Potassium 6.2 mmol/L (3.5-5.1)
[2021-06-18] MEDS ORDERED: DEXTROSE 50% 50 ML SYRINGE IV STA (01:54)
[2021-06-18] MEDS ORDERED: CALCIUM GLUCONATE 10% 1,000 MG in DEXTROSE 5% 50 ML IV ONE (01:54)
[2021-06-18] MEDS ORDERED: SODIUM POLYSTYRENE SULFONATE 15G/60ML SUSP PO STA (01:54)
[2021-06-18] MEDS ORDERED: STAT IV STA (01:54)
[2021-06-18] MEDS ORDERED: INSULIN HUMAN REGULAR PER UNIT 10 UNITS in SYRINGE 9.9 ML IV STA (02:05)
[2021-06-18] MEDS: HEPARIN SOD 5,000 UNIT/0.5 ML VIAL SQ SCH (05:57)
[2021-06-18 06:26] LABS: Hematocrit (blood only) 33.9 % (42-52); Hemoglobin 12.4 g/dL (14.0-18.0); Mean Corpuscular Hemoglobin 30.5 pg (25-34); Mean Corpuscular Hgb Conc 36.6 g/dL (32-36); Mean Corpuscular Volume 83.3 fL (80-100); Mean Platelet Volume 10.2 fL (7.4-10.4); Platelet Count 247 K/uL (130-400); RDW Coefficient of Variation 12.9 % (11.5-14.5); Red Blood Count 4.07 M/uL (4.7-6.1); White Blood Count 9.08 K/uL (4.8-10.8)
--- NOTE | 2021-06-18 06:30 | Electrocardiogram Report ---
Test Reason : Blood Pressure : / mmHG Vent. Rate : 080 BPM Atrial Rate : 080 BPM P-R Int : 276 ms QRS Dur : 150 ms QT Int : 400 ms P-R-T Axes : 040 -62 028 degrees QTc Int : 461 ms Sinus rhythm with 1st degree A-V block Left axis deviation Right bundle branch block Inferior infarct (cited on or before 23-DEC-2019) Abnormal ECG When compared with ECG of 25-DEC-2019 06:20, T wave inversion no longer evident in Inferior leads Confirmed by Chun Fischer ([id number]) on 06/18/2021 6:30:23 AM Referred By: Enma Nguyen Confirmed By:Chun Fischer
[2021-06-18 06:49] LABS: Albumin Globulin Ratio 1.2 (0.9-2); Albumin Level 3.6 gm/dl (3.4-5.0); BUN Creatinine Ratio 24.1 (10-20); Bilirubin,Total 0.5 mg/dl (0.2-1.0); Calcium 8.8 mg/dl (8.5-10.1); Creatinine Clr Calc Pharmacy 25.5 ml/min; Est GFR (African American) 18.2 ml/min; Est GFR (Non-African American) 15.7 ml/min; Globulin 3.1 gm/dl (2.5-4.0); Potassium 5.5 mmol/L (3.5-5.1); Total Protein 6.7 gm/dl (6.0-8.3)
[2021-06-18 06:53] LABS: Estimated Average Glucose 220 mg/dl; Hemoglobin A1C 9.3 % (4.5-5.6)
--- NOTE | 2021-06-18 08:20 | Urology Progress Note ---
Date of Service June 18, 2021 Assessment & Plan (1) Hydronephrosis of right kidney: (2) Acute kidney injury: Plan: We reviewed the findings from the OR yesterday. Although no distal ureteral stone was visible on CT scan, there appeared to be an obstruction in the distal ureter when I looked in. We discussed that we will likely need to perform another procedure to ensure that this has either passed or is removed. He has another stone up in his right kidney which we can remove at the same time. This will be done as an outpatient. For now I am satisfied that his pain is improved, and hopefully his renal function will continue to improve now that adequate upper tract drainage is achieved. I think it is reasonable to remove the Kiran today and allow him to void on his own. Urology will sign off for now and arrange outpatient follow-up. Please call [facility] any questions or concerns. Admission and Anticipated Discharge Date Admission Date: June 17, 2021 Subjective Feeling okay this morning Pain has improved in the flank Catheter is causing irritation and he would like it removed Not much appetite, but no nausea or vomiting Labs are improving, creatinine down to 3.69 this morning, still hyperkalemic with potassium 5.5. Review of Systems Constitutional: No fevers or chills Physical Exam Constitutional: Resting in chair, NAD Respiratory: Breathing comfortably on room air Genitourinary: Kiran catheter in place, red urine in the bag but no clots Results & Data ([facility]) Vital Signs (Past 12 Hours) Vital Signs Temp Pulse Pulse Resp BP Pulse Ox 06/18/21 03:43 36.4 C L 84 24 147/79 H 97 06/17/21 23:24 36.6 C 78 16 150/78 H 97 06/17/21 22:20 82 PG Care Time/CCT Total # of Minutes Spent Total Time Spent with Patient: Total time spent is greater than 50% in coordination of care (as documented) at patient's floor/unit and/or counseling patient: Coding Level of Care Code 66906 Subseq Obs Care Lvl 2 Diagnoses Hydronephrosis of right kidney N13.30 Acute kidney injury N17.9
--- NOTE | 2021-06-18 08:44 | Nephrology Consultation ---
Date of Consultation June 18, 2021 Assessment & Plan (1) Hyperkalemia: improving and multifactorial due in part to stopping OP meds w/o guidance that could lessen K and continuing meds that can worsen it. underlying RTA 4 -cont to hold joe antag and arb >> he needs both of these custodial for better renal prx -started veltassa -started bicarb gtt -low K diet next Bmp recommended for 2199; defer to primary to order -no further kayexalate given diarrhea today -no indication at this time for ABG care coordinated w/ hospitalist throughout the day today and yesterday as well (2) Acute on chronic renal failure: improving nonoliguric stage 2 GRIFFIN on CKD 4 w/ nephrotic range proteinuria, high risk for esrd. baseline creatinine usually mid to high 2s. presented 4.6; improving w/ surgical mgt of obstruction. also component of ischemic ATN likely given illness and intermittent diarrhea and self - admin medication changes prior to presentation -bmp q12h for now -no indication for urgent dialysis (3) Hydronephrosis of right kidney: s/p R ureteral stent (4) Kidney stone: per urology for now; will need metabolic w/u as OP in CKD clinic History of Present Illness Reason for Consultation: hyperkalemia, GRIFFIN Requesting Physician: Dr Rubi Attending Physician: John Rogers MD History of Present Illness 70 y/o M whom I'm asked to see for GRIFFIN and hyperkalemia presented to ER yesterday for evaluation of stuttering R flank pain in the setting of several days of illness. He was admitted for management of hyperkalemia (K 6.1) and GRIFFIN on CKD 4 (presenting creatinine 4.6) with R hydroureter and hydronephrosis w/o obvious stone on admission imaging. 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 Pt had R cubital tunnel surgery done 06/03. Told ER he'd been having stuttering f lank pain since then. His K was 6.2 on 05/26 w/ creat at baseline; K was 5.8 on 06/03. He did call into CKD clinic on 06/15 w/ concern for diarrhea, poor po intake, abdominal and back pain along with report he may have passed some stones recently. Labs were obtained 06/16 (similar to admission labs which featured K 6.1, bicarb 12, creat 4.6) and he had an urgent PCP appt set up w/ plan for ER eval if sx worsened. he was started on a 1/2 NS w/ 75 mEq/L sodium bicarbonate at 100 mL hourly Urology took patient to OR yesterday > attempted unsuccessfully in medically higher risk patient to remove distal R stone; then prioritized R ureteral stent placement w/ turbid urine drainage; pt also had urethral dilation in order to pass cystoscope. Plan going forward will be an outpatient procedure to ensure distal R ureteral stone passed and to remove another R renal stone. Urology ok w/ removing lincoln today. he has been manipulating many of his home medications since 06/03 surgery without guidance from medical team > he tells me opted not to fill/take sodium bicarb after pharmacist told him was OTC; he stopped lasix b/c worried it would worsen dehydration; had swings for several days between diarrhea and constipation after surgery driven primarily by opiates. has been taking ozempic through this. His ARB was held; he had medical therapy for K yesterday afternoon; had another round of IV insulin 10 units, kayexalate, calcium gluconate at 0200 this morning. K 5.5 today; creat 3.7. I tried yesterday and this am to evaluate the pt who was unavailable both times; on evaluation this evenign he denies worsening of chronic exertional dyspnea or orthopnea; no edema; had about 5 Bm early in day after kayexalate now subsided. flank pain w/ whihc he presented has resolved. no f/c, no dysuria; ate well this evening. endorses depression. Allergies Allergy/AdvReac Type Severity Reaction Status Date / Time losartan Allergy Diarrhea Unverified 06/17/21 09:50 lisinopril AdvReac Severe Cough Verified 12/23/19 20:13 Home Medications Medication Instructions Recorded Confirmed Type amlodipine 10 mg tablet 10 mg PO QAM 06/17/21 06/17/21 History aspirin 81 mg tablet 81 mg PO DAILY 06/17/21 06/17/21 History atorvastatin 80 mg tablet 80 mg PO QAM 06/17/21 06/17/21 History clopidogrel 75 mg tablet 75 mg PO QAM 06/17/21 06/17/21 History furosemide 40 mg tablet 40 mg PO QAM 06/17/21 06/17/21 History gabapentin 300 mg capsule 300 mg PO TID 06/17/21 06/17/21 History hydrocodone 5 mg-acetaminophen 325 5 - 325 tab PO Q6 PRN 06/17/21 06/17/21 History mg tablet insulin NPH isoph U-100 human 100 100 unit SUBCUT UD 06/17/21 06/17/21 History unit/mL subcutaneous suspension (Novolin N NPH U-100 Insulin isophane) insulin regular human 100 unit/mL 100 sliding scale dose SUBCUT UD 06/17/21 06/17/21 History injection solution (Novolin R Regular U-100 Insulin) methylprednisolone 4 mg tablets in 4 mg PO UD 06/17/21 06/17/21 History a dose pack metoprolol succinate 50 mg 50 mg PO QPM 06/17/21 06/17/21 History tablet,extended release 24 hr semaglutide (Ozempic) See Rx Instructions .ROUTE .COMPLEX 06/17/21 06/17/21 History sildenafil 50 mg tablet 50 mg PO DAILY PRN 06/17/21 06/17/21 History Patient History Medical History Cerebrovascular disease stroke 2013 CKD (chronic kidney disease), stage IV Diabetes mellitus type 2 with complications Diabetic neuropathy Dyslipidemia Hypertension Hypertensive heart disease Ischemic cardiomyopathy EF 35-40% Kidney stone Morbid obesity Surgical History H/O knee surgery History of tonsillectomy S/P surgical manipulation of ankle joint Stented coronary artery JOAO placement to the Circumflex, Proximal LAD and mid LAD with a ENVELOPE CUTTER of his RCA Social History Smoking Status: Never smoker Second Hand Exposure: No; Hx Alcohol Use: No Hx Substance Use: No Preferred Language: Indonesian Communication Ability: Effective Dress Marker Required: No Beliefs That Will Affect Care: Bahai marital status: Current Living Situation: Alone Current Living Situation Comment: alone in apartment building current occupational status: retired current occupation: Retired Feels Safe at Home: Yes Assistive Devices: Cane Review of Systems Review of Systems: All systems reviewed & are unremarkable except as noted in HPI & below Physical Exam Constitutional: well developed, well nourished, + morbidly obese and cooperative; no acute distress Eyes: EOM intact bilaterally ENMT: Ears: no external ear abnormality Nose: no external nose abnormality Mouth: + dry oral mucous membranes Neck: no nuchal rigidity Respiratory: normal respiratory effort Auscultation: + diminished lung sounds Cardiovascular: Rate/Rhythm: regular rate and regular rhythm Extremities: no edema Gastrointestinal (Abdomen): Inspection/Auscultation: normal bowel sounds Percussion/Palpation: abdomen soft; abdomen nontender (including no cva tenderness) Musculoskeletal: Extremities: strength 5/5 throughout Skin: no rashes, warm and dry Neurologic: madera, fluent speech, no tremor Psychiatric: Orientation: oriented x 3 Speech: normal rate/rhythm/volume of speech Results & Data ([facility]) Vital Signs (Past 12 Hours) Vital Signs Temp Pulse Pulse Resp BP Pulse Ox 06/18/21 03:43 36.4 C L 84 24 147/79 H 97 06/17/21 23:24 36.6 C 78 16 150/78 H 97 06/17/21 22:20 82 Laboratory Results 06/18/21 05:58 06/18/21 05:58 3/16 UACMreviewed 1600 labs reviewed
--- NOTE | 2021-06-18 09:17 | Ultrasound Report ---
US renal/blad retro comp CLINICAL HISTORY: hydronephrosis TECHNIQUE: Multiple sonographic real-time images of the kidneys and bladder were obtained. COMPARISON: Comparison is made to CT abdomen pelvis 06/17/2021 FINDINGS: The right kidney measures 12 cm in length, and the left kidney measures 12.2 cm in length. The right kidney is normal in size, contour, cortical thickness, and echogenicity. No hydronephrosis is identified. There is a right renal cyst at the upper pole. A few echogenic foci are seen which m ay represent stones. The left kidney is normal in size, contour, cortical thickness and echogenicity. No hydronephrosis i s identified. No renal lesion is identified. No perinephric fluid collection is seen. The bladder is partially distended. No large intraluminal mass is seen. IMPRESSION: No evidence of hydronephrosis bilaterally. Nonobstructing stones are suggested on the right. Previous ly noted left cyst is not clearly seen. ACT 112: Negative or not required by law. Electronically signed by: Emeka Hebert M.D. 06/18/2021 9:16 AM
[2021-06-18] MEDS: GABAPENTIN 300 MG CAP PO SCH ×3 (09:35→21:35)
[2021-06-18] MEDS: CLOPIDOGREL BISULFATE 75 MG TAB PO SCH (09:36)
[2021-06-18] MEDS: amLODIPine BESYLATE 5 MG TAB PO SCH (09:36)
[2021-06-18] MEDS: ASPIRIN 81 MG ECTAB PO SCH (09:36)
[2021-06-18] MEDS: ATORVASTATIN 40 MG TAB PO SCH (09:36)
[2021-06-18] MEDS: DOCUSATE SODIUM 100 MG CAP PO SCH ×2 (09:37→21:35)
[2021-06-18] MEDS: INSULIN ASPART PER UNIT SC SCH ×4 (09:38→21:22)
[2021-06-18] MEDS: OLMESARTAN MEDOXOMIL 5 MG TAB PO SCH (12:16)
[2021-06-18] MEDS: DEXTROSE 5% IV SCH ×2 (12:16→18:23)
[2021-06-18] MEDS: SODIUM BICARBONATE IV SCH ×2 (12:16→18:23)
--- NOTE | 2021-06-18 12:27 | Psychiatric Consultation ---
Date of Consultation June 18, 2021 Impression / Recommendations Impression 70 yo male with passive SI in past 2 weeks in dealing with pain and loss of sister. He currently denies SI. (1) Adjustment disorder with mixed disturbance of emotions and conduct: Dr. Marie notified as no acute SI and not signing OKSANA as difficult to safety plan around guns. He does not have a history of attempts but risk factors include chronic pain, recent loss, male, age, etc. The patient is not on a warrant and does not meet criteria for involuntary commitment or inpatient psychiatric hospitalization at this time. Please notify service in anticipating of discharge for additional safety planning in case SI returns post discharge. Psych History Identifying Data Mr. Grover is a 70 yo male from [place], no known formal psych history, admit 06/17/21 for pain control s/p procedures (cubital tunnel repair, kidney stone) June 03. Consult is by hospitalist service for depression with SI. Chief Complaint "The pain just got to me". History of Present Illness Patient states that he was emotional in the ED yesterday but feels much better today. He admits that he has felt down for awhile, and particularly over the past 2 weeks due to his pain and medical issues. His last living sibling , a sister, one week ago. He initially would not divulge if he had a plan and made concerning statements around his code status discussion with admitting provider, even gesturing ot his head like a gun. There was concern that he has access to weapons. When asked last evening about SI/plan by psychiatric liaison he reported that a woman in his apartment building last year to commit suicide. He denies that this would be his plan and has repeated last night and this am that he would not hurt himself as he wouldn't want to do that to his family. Attending physician states that he denied SI on 06/17 and 06/18. This am the patient is pleased with his pain control. He is not interested in any services. He did not want to sign an OKSANA for family at this time for liaison. PHQ-9=18 (feeling tired and trouble concentrating most endorsed, again related to medical), question 9: 1 Past Psychiatric History History of Previous Suicide Attempt: No Past Medication Trials: Cymbalta--was not a full trial, unclear if for mood or pain Allergies Allergy/AdvReac Type Severity Reaction Status Date / Time losartan Allergy Diarrhea Unverified 06/17/21 09:50 lisinopril AdvReac Severe Cough Verified 12/23/19 20:13 Home Medications Medication Instructions Recorded Confirmed Type amlodipine 10 mg tablet 10 mg PO QAM 06/17/21 06/17/21 History aspirin 81 mg tablet 81 mg PO DAILY 06/17/21 06/17/21 History atorvastatin 80 mg tablet 80 mg PO QAM 06/17/21 06/17/21 History clopidogrel 75 mg tablet 75 mg PO QAM 06/17/21 06/17/21 History furosemide 40 mg tablet 40 mg PO QAM 06/17/21 06/17/21 History gabapentin 300 mg capsule 300 mg PO TID 06/17/21 06/17/21 History hydrocodone 5 mg-acetaminophen 325 5 - 325 tab PO Q6 PRN 06/17/21 06/17/21 History mg tablet insulin NPH isoph U-100 human 100 100 unit SUBCUT UD 06/17/21 06/17/21 History unit/mL subcutaneous suspension (Novolin N NPH U-100 Insulin isophane) insulin regular human 100 unit/mL 100 sliding scale dose SUBCUT UD 06/17/21 06/17/21 History injection solution (Novolin R Regular U-100 Insulin) methylprednisolone 4 mg tablets in 4 mg PO UD 06/17/21 06/17/21 History a dose pack metoprolol succinate 50 mg 50 mg PO QPM 06/17/21 06/17/21 History tablet,extended release 24 hr semaglutide (Ozempic) See Rx Instructions .ROUTE .COMPLEX 06/17/21 06/17/21 History sildenafil 50 mg tablet 50 mg PO DAILY PRN 06/17/21 06/17/21 History Family History denied Substance Abuse History denied Personal History Childhood: normal Highest Grade Completed: Some College Employment Status: Retired ([email or web address]) Marital Status: Number Of Children: dirk, son Beliefs That Will Affect Care: Restorationist History of Legal Problems: denied Psychological Trauma History Comment: denied Patient History Medical History Cerebrovascular disease stroke 2013 CKD (chronic kidney disease), stage IV Diabetes mellitus type 2 with complications Diabetic neuropathy Dyslipidemia Hypertension Hypertensive heart disease Ischemic cardiomyopathy EF 35-40% Kidney stone Morbid obesity Surgical History H/O knee surgery History of tonsillectomy S/P surgical manipulation of ankle joint Stented coronary artery JOAO placement to the Circumflex, Proximal LAD and mid LAD with a AERIAL ADVERTISER of his RCA Social History Smoking Status: Never smoker Second Hand Exposure: No; Hx Alcohol Use: No Hx Substance Use: No Preferred Language: Croatian Communication Ability: Effective Surgery Teacher Required: No Beliefs That Will Affect Care: Restorationist marital status: Current Living Situation: Alone Current Living Situation Comment: alone in apartment building current occupational status: retired current occupation: Retired Feels Safe at Home: Yes Assistive Devices: None Physical Exam Psychiatric: Orientation: alert and oriented x 3 Apperance: appropriately groomed Eye Contact: + fair eye contact Motor Behavior: no abnormal motor movements Speech: normal rate/rhythm/volume of speech Affect: + depressed affect Mood: no anxious mood "I'm fine now" Thought Process: goal directed thought process Thought Content: reality based without delusions Suicidal Thoughts: denies suicidal thoughts Homicidal Thoughts: denies homicidal thoughts Hallucinations: no auditory hallucinations and no visual hallucinations Cognition: attention grossly intact and language grossly intact Estimated Intelligence: consistent with education level Vital Signs (Past 24 Hours): Last Vital Signs Temp 36.9 C 06/18/21 12:00 Pulse 69 06/18/21 12:00 Resp 18 06/18/21 12:00 BP 142/60 H 06/18/21 12:00 Pulse Ox 93 06/18/21 12:00 Review of Systems All systems reviewed & are unremarkable except as noted in HPI & below Results & Data (PSY) Medications Administered Acetaminophen (Acetaminophen 325 Mg Tab) 650 mg PO Q4H PRN PRN Reason: Moderate Pain Stop: 07/17/21 13:38 Last Admin: 06/17/21 20:08 Dose: 650 mg Documented by: [id number] Amlodipine Besylate (Amlodipine Besylate 5 Mg Tab) 10 mg PO QAM JAYA Stop: 07/18/21 08:59 Last Admin: 06/18/21 09:36 Dose: 10 mg Documented by: [id number] Aspirin (Aspirin 81 Mg Ectab) 81 mg PO DAILY JAYA Stop: 07/18/21 08:59 Last Admin: 06/18/21 09:36 Dose: 81 mg Documented by: [id number] Atorvastatin Calcium (Atorvastatin 40 Mg Tab) 80 mg PO QAM [facility] Stop: 07/18/21 08:59 Last Admin: 06/18/21 09:36 Dose: 80 mg Documented by: [id number] Clopidogrel Bisulfate (Clopidogrel Bisulfate 75 Mg Tab) 75 mg PO QAM [facility] Stop: 07/18/21 08:59 Last Admin: 06/18/21 09:36 Dose: 75 mg Documented by: [id number] Docusate Sodium (Docusate Sodium 100 Mg Cap) 100 mg PO BID [facility] Stop: 07/17/21 20:59 Last Admin: 06/18/21 09:37 Dose: Not Given Documented by: [id number] Admin: 06/17/21 20:11 Dose: 100 mg Documented by: [id number] Gabapentin (Gabapentin 300 Mg Cap) 300 mg PO TID [facility] Stop: 07/17/21 13:59 Last Admin: 06/18/21 09:35 Dose: 300 mg Documented by: [id number] Admin: 06/17/21 20:12 Dose: Not Given Documented by: [id number] Admin: 06/17/21 18:17 Dose: Not Given Documented by: [id number] Heparin Sodium (Porcine) (Heparin Sod 5,000 Unit/0.5 Ml Vial) 5,000 units SQ Q8 [facility] Stop: 07/17/21 13:59 Last Admin: 06/18/21 05:57 Dose: 5,000 units Documented by: [id number] Admin: 06/17/21 21:43 Dose: 5,000 units Documented by: [id number] Admin: 06/17/21 18:19 Dose: Not Given Documented by: [id number] Insulin Aspart (Insulin Aspart Per Unit) 0 units SC ACHS [facility]; Protocol Stop: 07/17/21 13:59 Last Admin: 06/18/21 09:38 Dose: 8 units Documented by: [id number] Cosigned by: [id number] Admin: 06/17/21 21:37 Dose: 2 units Documented by: [id number] Cosigned by: [id number] Admin: 06/17/21 18:22 Dose: 2 units Documented by: [id number] Cosigned by: [id number] Admin: 06/17/21 18:18 Dose: Not Given Documented by: [id number] Insulin Human NPH (Insulin Human Nph) 0 units SC BID@0000,1200 [facility]; Protocol Stop: 07/18/21 00:00 Last Admin: 06/18/21 00:15 Dose: 20 units Documented by: [id number] Cosigned by: [id number] Metoprolol Succinate (Metoprolol Succ 50mg Ext Rel Tab) 50 mg PO QPM [facility] Stop: 07/17/21 20:59 Last Admin: 06/17/21 20:11 Dose: 50 mg Documented by: [id number] Coding Level of Care Code 58064 Inpt Consult Level 3 Diagnoses Adjustment disorder with mixed disturbance of emotions and conduct F43.25
--- NOTE | 2021-06-18 13:29 | Hospitalist Progress Note ---
Date of Service June 18, 2021 Assessment & Plan (1) Acute on chronic renal failure: Plan: Acute on chronic renal failure, CKD stage IV, with hyperkalemia Secondary to obstructive uropathy, ureteral stone Status post stent placement and stone removal 06/17/[address] Ian Nam Creatinine improving from 4.5, now 3.6 No problems with voiding No signs of UTI per urinalysis Continue bicarb drip Repeat potassium at 2 PM Nephrology service on board, appreciate recommendations Urologist, on board, patient recommendations Patient needs follow-up with urology clinic in 1 week for stent removal Diabetes mellitus type 2 with complications: Plan: - ISS with accuchecks, ACHS - Last a1c was 9.5 on 05/25/21, no need to repeat per review of outpatient labs - hold ozempic - Continue Novolin R and Novolin N daily as per BREAKER UNIT ASSEMBLER meds -Monitor blood glucose closely Hypertension: - Monitor closely - Continue amlodipine, metoprolol, olmesartan Dyslipidemia: - Cont statin therapy Ischemic cardiomyopathy: Plan: - Last echo reviewed showing EF of 35-40%, Follows with Dr. Abarca as an outpatient with cardiology office -Continue baby aspirin, Plavix, atorvastatin - holding Lasix secondary to above CAD (coronary artery disease): Plan: - Cont baby asa and plavix Adjustment disorder with mixed disturbance of emotions and conduct Plan: - Pt expressed ideation of suicide via gun while at bedside. Notes he is tired of dealing with the chronic pain. His last living sibling about 1 week ago, his sister. - Lives at home and has gun in the house. Patient denies anxiety or depression, suicidal ideations today Psych consulted, diagnosis is adjustment disorder with mixed disturbance of emotions and No indication for inpatient psych admission at this point Continue to monitor Morbid obesity with BMI of 40.0-44.9, adult: Plan: -BMI of 44.4, diet and exercise to be encouraged once medical conditions improved DVT PPx: - teds, scds, heparin subcu CODE: Full code Dispo: Lives at home PT/OT evaluation Anticipate discharge to home medically stableplan of care discussed with patient in detail and at length all questions answered He is understanding, agreeable, comfortable with the plan of care Admission and Anticipated Discharge Date Admission Date: June 17, 2021 Subjective Follow-up for acute renal failure, obstructive uropathy, etc. Seen resting in bed, comfortable, not in distress, in good spirits States he feels 100% better compared to yesterday Back pain has resolved No fevers or chills, nausea vomiting Voiding well, reddish urine No shortness of breath, chest pain, palpitations, dizziness States that his mood is better today Denies anxiety or depression symptoms Denies suicidal ideations No other symptoms Review of Systems Review of Systems: all noted and negative except for above Physical Exam Physical Exam: General- oriented x 3, not in distress, speaks in sentences with no effort or accessory muscle use Eyes- anicteric Neck- no JVD Lungs- clear breath sounds bilaterally, no rales/wheezes Heart- normal rate, regular rhythm; no murmurs Abdomen- normal bowel sounds, nondistended, soft, nontender No CVA tenderness Extremities-trace pretibial edema, no calf tenderness Neuro- alert, oriented x 3; no gross focal neurologic deficits Skin- warm & dry Results & Data Results & Data ([facility]) Vital Signs (Past 12 Hours) Vital Signs Temp Pulse Resp BP Pulse Ox 06/18/21 12:00 36.9 C 69 18 142/60 H 93 06/18/21 03:43 36.4 C L 84 24 147/79 H 97 all noted and reviewed including below
[2021-06-18] MEDS ORDERED: PHARMACY GLYCEMIC MGMT CONSULT PRN (15:27)
[2021-06-18 16:08] LABS: BUN Creatinine Ratio 25.7 (10-20); Calcium 8.1 mg/dl (8.5-10.1); Creatinine Clr Calc Pharmacy 27.8 ml/min; Est GFR (African American) 20.2 ml/min; Est GFR (Non-African American) 17.4 ml/min; Potassium 5.4 mmol/L (3.5-5.1)
[2021-06-18] MEDS: PATIROMER CALCIUM SORBITEX 8.4 GM PACK PO SCH (18:39)
[2021-06-18] MEDS: METOPROLOL SUCC 50MG EXT REL TAB PO SCH (21:23)
[2021-06-19] MEDS: INSULIN HUMAN NPH SC SCH ×2 (00:09→12:18)
[2021-06-19] MEDS ORDERED: ZOLPIDEM TARTRATE 5 MG TAB PO PRN (00:22)
[2021-06-19] MEDS: DEXTROSE 5% IV SCH ×2 (01:05→09:57)
[2021-06-19] MEDS: SODIUM BICARBONATE IV SCH ×2 (01:05→09:57)
[2021-06-19] MEDS ORDERED: SODIUM BICARBONATE 8.4% 150 MEQ in DEXTROSE 5% 1,000 ML IV SCH (08:00)
--- NOTE | 2021-06-19 08:24 | Nephrology Progress Note ---
Date of Service June 19, 2021 Assessment & Plan (1) Hyperkalemia: Plan: resolved. multifactorial due in part to stopping OP meds w/o guidance that could lessen K and continuing meds that can worsen it. underlying RTA 4 >>>>> follow-up labs from this morning are pending >> renal function back to baseline; -d/c on veltassa if feasible (may be too $$) -cont to hold joe antag and arb >> he needs both of these long-term however for better renal prx nephro recommendations for discharge >bmp weekly x 3 to be ordered by nephro RN >hospital discharge appt w/ me w/in the next month >do not cancel july 2021 appt w/ nephro (2) Acute on chronic renal failure: Plan: improving nonoliguric stage 2 GRIFFIN on CKD 4 w/ nephrotic range proteinuria, high risk for esrd. baseline creatinine usually mid to high 2s. presented 4.6; improving w/ surgical mgt of obstruction. also component of ischemic ATN likely given illness and intermittent diarrhea and self - admin medication changes prior to presentation -bmp q12h for now >>> Follow-up pending labs from this morning - see above -no indication for urgent dialysis (3) Hydronephrosis of right kidney: Plan: s/p R ureteral stent (4) Kidney stone: Plan: per urology for now; will need metabolic w/u as OP in CKD clinic Admission and Anticipated Discharge Date Admission Date: June 17, 2021 Subjective seenon rounds today 1020; pt had refused labs earlier in the day but ultimately accepted; determined to leave today; no sob, no orthopnea; no further flank pain; voiding w/o issues Review of Systems Review of Systems: All systems reviewed & are unremarkable except as noted in Subjective Physical Exam Constitutional: well developed, well nourished, + morbidly obese and cooperative; no acute distress Eyes: EOM intact bilaterally ENMT: Ears: no external ear abnormality Nose: no external nose abnormality Mouth: + dry oral mucous membranes Neck: no nuchal rigidity Respiratory: normal respiratory effort Auscultation: + diminished lung sounds Cardiovascular: Rate/Rhythm: regular rate and regular rhythm Extremities: no edema Gastrointestinal (Abdomen): Inspection/Auscultation: normal bowel sounds Percussion/Palpation: abdomen soft; abdomen nontender (including no cva tenderness) Musculoskeletal: Extremities: strength 5/5 throughout Skin: no rashes, warm and dry Neurologic: madera, fluent speech, no tremor Psychiatric: Orientation: oriented x 3 Speech: normal rate/rhythm/volume of speech Results & Data ([facility]) Vital Signs (Past 12 Hours) Vital Signs Temp Pulse Pulse Pulse Resp BP Pulse Ox 06/19/21 07:46 36.8 C 89 15 145/87 H 95 06/19/21 03:21 36.7 C 94 H 16 113/72 94 06/18/21 23:49 36.9 C 95 H 16 146/81 H 94 06/18/21 22:17 95 H Laboratory Results 06/18/21 05:58 06/18/21 22:24 06/19/21 10:20 06/19/21 10:20
[2021-06-19] MEDS: INSULIN ASPART PER UNIT SC SCH ×2 (08:31→12:17)
[2021-06-19] MEDS: amLODIPine BESYLATE 5 MG TAB PO SCH (08:34)
[2021-06-19] MEDS: OLMESARTAN MEDOXOMIL 5 MG TAB PO SCH (08:34)
[2021-06-19] MEDS: ATORVASTATIN 40 MG TAB PO SCH (08:35)
[2021-06-19] MEDS: DOCUSATE SODIUM 100 MG CAP PO SCH (08:35)
[2021-06-19] MEDS: GABAPENTIN 300 MG CAP PO SCH (08:35)
[2021-06-19] MEDS: CLOPIDOGREL BISULFATE 75 MG TAB PO SCH (08:35)
[2021-06-19] MEDS: ASPIRIN 81 MG ECTAB PO SCH (08:35)
[2021-06-19 10:34] LABS: Hematocrit (blood only) 31.2 % (42-52); Hemoglobin 10.9 g/dL (14.0-18.0); Mean Corpuscular Hemoglobin 29.9 pg (25-34); Mean Corpuscular Hgb Conc 34.9 g/dL (32-36); Mean Corpuscular Volume 85.5 fL (80-100); Platelet Count 204 K/uL (130-400); RDW Coefficient of Variation 12.9 % (11.5-14.5); RDW Standard Deviation 40.2 fL (36.4-46.3); Red Blood Count 3.65 M/uL (4.7-6.1); White Blood Count 8.73 K/uL (4.8-10.8)
[2021-06-19 10:58] LABS: Albumin Globulin Ratio 1.2 (0.9-2); Albumin Level 3.1 gm/dl (3.4-5.0); BUN Creatinine Ratio 24.9 (10-20); Bilirubin,Total 0.3 mg/dl (0.2-1.0); Est GFR (African American) 24.8 ml/min; Est GFR (Non-African American) 21.4 ml/min; Globulin 2.6 gm/dl (2.5-4.0); Potassium 4.5 mmol/L (3.5-5.1); Total Protein 5.7 gm/dl (6.0-8.3)
--- NOTE | 2021-06-19 11:59 | Pharmacy Report ---
Pharmacy Glycemic Short Note 2 - Date of Service June 19, 2021 - Glycemic Short BSG Results (Last 24 hours): 06/18/21 06/18/21 06/18/21 15:36 16:15 20:02 Glucose 181 H POC Glucose 161 H 174 H 06/18/21 06/19/21 06/19/21 23:40 07:01 10:20 Glucose 227 H POC Glucose 166 H 192 H 06/19/21 11:02 Glucose POC Glucose 230 H OUTPATIENT ANTIDIABETIC REGIMEN: * NPH 25 units SC at noon and midnight (confirmed by Berenice Barrios) * Regular insulin 15 units SC TIDM * Semaglutide * HbA1c 9.5% on 05/25/21 ASSESSMENT: 06/19/21 * Patient's BSGs yesterday were [phone] mg/dL. This morning BSG is 192 mg/dL as patient is on D5 @ 150 mLs/hr. * Will continue current regimen as hyperglycemia right now is due to IV dextrose. * Kidney function improving rapidly. * Patient is receiving home dose of NPH. Baseline * 70 yo M with T2DM admitted with hyperkalemia and is currently NPO for ureteral stent placement * Discussed with Berenice Barrios - given BSG's in range at this time without anticipated additional stressors other than noted above, OK to continue NPH at similar to home dose, with the exception of a one-time lower dose now for NPO status. Will adjust ongoing based on trend in BSG * Will initiate Novolog at slightly looser than weight-based moderate stress estimate to help prevent hypoglycemia with peaks/troughs of NPH for now, given current NPO status and euglycemia (although anticipate diet will be ordered post-op) PLAN FOR INPATIENT GLYCEMIC CONTROL: * Hold outpatient oral diabetes medications * Basal insulin * NPH 25 units BID @ 00, 12 (per patient's home regimen) with 20 units available for BSG < 150 mg/dL * Bolus insulin * NovoLog per scale ACHS or Q6hrs while NPO * Goal Range: Low 110 mg/dL - High 140 mg/dL * Correction Factor: 20 mg/dL/unit * Nutritional / Prandial insulin per carb ratio of 1 unit per 7 grams CHO consumed
[2021-06-19] MEDS: PATIROMER CALCIUM SORBITEX 8.4 GM PACK PO SCH (12:18)
--- NOTE | 2021-06-19 13:08 | Communication Note ---
Date of Service: June 19, [address] Case reviewed briefly [address] Dr[address] Rogers and liaison. He has been irritable at times, mainly as focussed on going home. Continues to deny depression and SI. Clarification: suicidal statements were on arrival/admission prior to pain control. There is not indication for inpatient psychiatric hospitalization. He does have risk factors that can't be mitigated (such as age, recent loss, male sex). Dr. 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 As there is no 302 petition or warrant and he has consistently denied SI across his stay, no psychosis, etc. we must respect his autonomy in this regard. He decline grief counseling. Our service has no additional recs at this time and from a psych standpoint he is stable for discharge.
--- NOTE | 2021-06-19 17:45 | Electrocardiogram Report ---
Test Reason : Blood Pressure : / mmHG Vent. Rate : 087 BPM Atrial Rate : 087 BPM P-R Int : 270 ms QRS Dur : 152 ms QT Int : 386 ms P-R-T Axes : 026 -63 009 degrees QTc Int : 464 ms Sinus rhythm with 1st degree A-V block Left axis deviation Inferior infarct (cited on or before 23-DEC-2019) Right bundle branch block Abnormal ECG When compared with ECG of 17-JUN-2021 10:36, No significant change Confirmed by Chun Fischer ([id number]) on 06/19/2021 5:45:22 PM Referred By: Enma Nguyen Confirmed By:Chun Fischer
--- NOTE | 2021-06-19 18:46 | Hospitalist Progress Note ---
Date of Service June 19, 2021 Assessment & Plan (1) Acute on chronic renal failure: Plan: Acute on chronic renal failure, CKD stage IV, with hyperkalemia Secondary to obstructive uropathy, ureteral stone Status post stent placement and stone removal 06/17/[address] Ian Nam Movie Producer Dr. Galdamez consulted Bicarb drip, Kayexalate, Veltassa ordered Creatinine improved from 4.5 --> 3.6 --> 2.8 Potassium normalized Bicarbonate normalized No problems with voiding No signs of UTI per urinalysis Patient needs follow-up with urology clinic in 1 week for stent removal Follow-up with Dr. Galdamez as outpatient, weekly BMP Diabetes mellitus type 2 with complications: Plan: Continue usual regimen Follow-up as an outpatient Hypertension: - Continue amlodipine, metoprolol, olmesartan Dyslipidemia: - Cont statin therapy Ischemic cardiomyopathy: Plan: - Last echo reviewed showing EF of 35-40%, Follows with Dr. Abarca as an outpatient with cardiology office -Continue baby aspirin, Plavix, atorvastatin, Lasix CAD (coronary artery disease): Plan: - Cont baby asa and plavix Adjustment disorder with mixed disturbance of emotions and conduct Plan: - Pt expressed ideation of suicide via gun while at bedside. Notes he is tired of dealing with the chronic pain. His last living sibling about 1 week ago, his sister. - Lives at home and has gun in the house. Patient denies anxiety or depression, suicidal ideations while admitted States his mood is much better after pain has resolved Psych consulted, diagnosis is adjustment disorder with mixed disturbance of emotions and No indication for inpatient psych admission at this point Patient apparently declined when psych asked permission to speak with his family regarding above Emphasized with patient to seek medical attention immediately if he is having anxiety, depression, suicidal ideations Even go to the ER if with above symptoms Patient verbalized understanding and agreement Morbid obesity with BMI of 40.0-44.9, adult: Plan: -BMI of 44.4, diet and exercise encouraged Outpatient follow-up DVT PPx: - teds, scds, heparin subcu CODE: Full code Dispo: Discharge to home Follow-up with PCP in 1 week Follow-up with urologist in 1 week Follow-up with strategic planning analyst as scheduled plan of care discussed with patient in detail and at length all questions answered He is understanding, agreeable, comfortable with the plan of care Admission and Anticipated Discharge Date Admission Date: June 17, 2021 Subjective Follow-up for acute renal failure, obstructive uropathy, ureteral stone, etc. Resting in bed, comfortable, not in distress States he feels much better overall No back pain, abdominal pain, nausea vomiting, fevers or chills Urine is pinkish No chest pain, rotations, dizziness, shortness of breath Denies anxiety, depression symptoms, suicidal ideations No other symptoms States he feels much better And would like to be discharged today Review of Systems Review of Systems: all noted and negative except for above Physical Exam Physical Exam: General- oriented x 3, not in distress, speaks in sentences with no effort or accessory muscle use Eyes- anicteric Neck- no JVD Lungs- clear breath sounds bilaterally, no rales/wheezes Heart- normal rate, regular rhythm; no murmurs Abdomen- normal bowel sounds, nondistended, soft, nontender Extremities- no pretibial edema, no calf tenderness Right hand-mild edema, no erythema/warmth/tenderness Neuro- alert, oriented x 3; no gross focal neurologic deficits Skin- warm & dry Results & Data Results & Data ([facility]) Vital Signs (Past 12 Hours) Vital Signs Temp Pulse Pulse Pulse Pulse Resp BP 06/19/21 13:50 36.5 C 95 H 95 H 89 16 123/78 06/19/21 11:33 36.5 C 95 H 16 123/78 06/19/21 08:00 89 06/19/21 07:46 36.8 C 89 15 145/87 H Pulse Ox 06/19/21 13:50 93 06/19/21 11:33 93 06/19/21 08:00 06/19/21 07:46 95 all noted and reviewed including below
--- NOTE | 2021-06-19 18:50 | Discharge Summary ---
Date of Service June 19, 2021 Admission HPI Per Admitting Provider This is a 70 yo M with PMhx of CAD, DM type II, CKD stage IV, ischemic cardiomyopathy with an EF of 35 to 40%, recent ulnar nerve decompression surgery earlier this month, history of CVA, diabetic neuropathy, HTN, who presents with right-sided flank pain. Pt notes that on June 03 he had surgery on his right elbow for nerve decompression. The night of the surgery he had severe pain and subsequently due to that took narcotics and became constipated. He then developed right arm numbness. He was given dose pack of methylprednisolone and then developed severe diarrhea. He stopped taking this. His appetite has been significant worse in the past 2 weeks due to nausea and abdominal discomfort along with diarrhea, which is now resolved. His last BM was Tuesday, but has not been taking pain medication. He has had 3 or 4 kidney stones in the past which has been painful. He most recently passed one shortly after this ulnar surgery, June 05-. He presented today because of lower right sided back pain, which has been persistent since surgery. It is affecting his sleep. His pain was rated 8/10 but improved now with a dose of morphine. Alleviating factors include heat. His urine seems frequent but the quantity of urine passed at a time is much less. Denies pain with urinating, fever, chills or sweat. Her further reports being depressed and is crying at times throughout the conversation, when asked about code status he reports "thinking about it" and pointing his hands into the shape of a gun and pointing it at his head. He lives alone, but has children who he states could not go through with it because of needing to be here for him. He has guns at home, but only arya when I ask him if he has a plan. Pt denies homicidal ideation. He was previously given Rx for cymbalta but only took 1-2 doses and then didn't finish it. CT abdomen pelvis shows hydronephrosis however no obstructing stone which is suggestive for past kidney stone at this point. He is noted to be hyperkalemic with potassium of 6.1, BUN of 106, creatinine 4.58 and hyponatremic with sodium of 130. His white count is mildly elevated at 11.23. In the ER he was given 1 amp of bicarb, insulin, and calcium gluconate to correct hyperkalemia. Admission Exam (Per Admitting) Constitutional General: awake, alert, tearful, no acute distress, + obese with BMI of 44.4 Head: Normocephalic, atraumatic ENT: PERRL, EOMI, no pharyngeal exudate, mucous membranes moist Chest: Clear to auscultation, on room air, no adventitious breath sounds Cardiac: Regular rate and rhythm, no murmur, no JVD, normal peripheral pulses, good capillary refill Abdominal: NABS x 4 quadrants, soft, nondistended, slightly tender to palpation in the LLQ, no rebound or guarding Back: no CVA tenderness, + tenderness over R SI joint Extremities: Normal inspection, no peripheral edema or erythema, calfs nontender to palpation Psych: depressed mood and affect, tearful, +suicidal ideation, no homicidal ideation Neuro: AAO x 3, strength intact bilaterally and rated 5/5, no motor deficits, speech is clear, no peripheral sensory deficits Discharge Data Consultations 06/17/21 11:03 ED Decision to Admit Stat 06/17/21 11:27 Consult Nephrology Routine 06/17/21 11:51 Consult Urology Routine 06/17/21 12:51 Consult Psychiatry Routine Procedures Performed Operation Date: 06/17/21 14:25 Actual Procedures p Cystoscopy, Ureteral Dilitation, Right Stent Placement, Right Retrograde Pyelogram (Right) - Ian Nam MD CT abd pelvis wo con CLINICAL HISTORY: R flank pain. Status post surgery 06/03/2021 TECHNIQUE: Helical axial images of the abdomen and pelvis were obtained. Automated dose lowering techniques and/or adjustment according to patient size were utilized for this exam. This exam was performed without intravenous contrast. COMPARISON: Comparison is made to CT abdomen pelvis 02/09/2019 FINDINGS: Lower chest: No acute abnormality Liver: Unremarkable. No focal lesions are seen. Gallbladder and biliary tree: No calcified gallstones. Normal caliber wall. No intra- or extrahepatic biliary ductal dilation. Pancreas: Unremarkable, no focal lesions. Spleen: Unremarkable. Adrenals: Unremarkable. Kidneys and ureters: Right hydronephrosis and hydroureter is seen. There is no right nephrolithiasis noted. Nonobstructive stones are seen bilaterally. Multiple exophytic hypodensities are seen on the left compatible with cysts. Bladder: Unremarkable. Reproductive organs: Unremarkable. Bowel: Diverticulosis is seen without evidence of diverticulitis. A small hiatal hernia is seen. Lymph nodes Retroperitoneal: Unremarkable. Mesenteric: Unremarkable. Pelvic: Unremarkable. Peritoneum: Normal. Vessels: Atherosclerotic calcifications are seen. Abdominal wall: A fat-containing umbilical hernia is seen. Bones: Degenerative changes in the visualized spine. IMPRESSION: Interval development of right hydronephrosis and hydroureter without evidence of obstructive stone. This may represent recently passed stone. ACT 112: Negative or not required by law. Electronically signed by: Emeka Hebert M.D. 06/17/2021 10:15 AM Dictated:06/17/21 1001 US renal/blad retro comp CLINICAL HISTORY: hydronephrosis TECHNIQUE: Multiple sonographic real-time images of the kidneys and bladder were obtained. COMPARISON: Comparison is made to CT abdomen pelvis 06/17/2021 FINDINGS: The right kidney measures 12 cm in length, and the left kidney measures 12.2 cm in length. The right kidney is normal in size, contour, cortical thickness, and echogenicity. No hydronephrosis is identified. There is a right renal cyst at the upper pole. A few echogenic foci are seen which may represent stones. The left kidney is normal in size, contour, cortical thickness and echogenicity. No hydronephrosis is identified. No renal lesion is identified. No perinephric fluid collection is seen. The bladder is partially distended. No large intraluminal mass is seen. IMPRESSION: No evidence of hydronephrosis bilaterally. Nonobstructing stones are suggested on the right. Previously noted left cyst is not clearly seen. ACT 112: Negative or not required by law. Electronically signed by: Emeka Hebert M.D. 06/18/2021 9:16 AM Transcribed: 06/17/21 1001 Diabetes Follow Up Diabetes Follow Up: Diabetes Follow-up Needed for HgbA1c >9% Hospital Course (1) Acute on chronic renal failure: Acute on chronic renal failure, CKD stage IV, with hyperkalemia Secondary to obstructive uropathy, ureteral stone Status post stent placement and stone removal 06/17/[address] Ian Nam Manager Cleaning Dr. Galdamez consulted Lee Miramontes Veltassa ordered Creatinine improved from 4.5 --> 3.6 --> 2.8 Potassium normalized Bicarbonate normalized No problems with voiding No signs of UTI per urinalysis Patient needs follow-up with urology clinic in 1 week for stent removal Follow-up with Dr. Galdamez as outpatient, weekly BMP Diabetes mellitus type 2 with complications: Plan: Continue usual regimen Follow-up as an outpatient Hypertension: - Continue amlodipine, metoprolol, olmesartan Dyslipidemia: - Cont statin therapy Ischemic cardiomyopathy: Plan: - Last echo reviewed showing EF of 35-40%, Follows with Dr. Abarca as an outpatient with cardiology office -Continue baby aspirin, Plavix, atorvastatin, Lasix CAD (coronary artery disease): Plan: - Cont baby asa and plavix Adjustment disorder with mixed disturbance of emotions and conduct Plan: - Pt expressed ideation of suicide via gun while at bedside. Notes he is tired of dealing with the chronic pain. His last living sibling about 1 week ago, his sister. - Lives at home and has gun in the house. Patient denies anxiety or depression, suicidal ideations while admitted States his mood is much better after pain has resolved Psych consulted, diagnosis is adjustment disorder with mixed disturbance of emotions and No indication for inpatient psych admission at this point Patient apparently declined when psych asked permission to speak with his family regarding above Emphasized with patient to seek medical attention immediately if he is having a nxiety, depression, suicidal ideations Even go to the ER if with above symptoms Patient verbalized understanding and agreement Morbid obesity with BMI of 40.0-44.9, adult: Plan: -BMI of 44.4, diet and exercise encouraged Outpatient follow-up DVT PPx: - teds, scds, heparin subcu CODE: Full code Disposition: Discharge to home Follow-up with PCP in 1 week Follow-up with urologist in 1 week Follow-up with veterinary surgeon as scheduled plan of care discussed with patient in detail and at length all questions answered He is understanding, agreeable, comfortable with the plan of care
== END 2021-06-19 16:00 | disposition home or self-care (01) | DRG 660 ==
LOC: ED 08:48 → SUATTDRO 11:56 → 2S 11:56

== ENCOUNTER 2021-12-01 18:40 | Inpatient (IN) ==
--- NOTE | 2021-12-01 19:25 | Emergency Department Note ---
History of Present Illness General Chief complaint: Altered Mental Status Stated complaint: AMS, Fever, Weakness, Hypoxia Time Seen by Provider: 12/01/21 19:07 Source: patient Mode of arrival: EMS Limitations: no limitations History of Present Illness Provider complaint: Fevers, chills, weakness Onset (ago): day(s) 1 Maximum Pain Intensity: 7 This is a 71-year-old male presents emergency department complaining of fevers, chills, and weakness. Patient states he began feeling unwell yesterday with fevers and chills. He states he measured his temperature at home and got 101 F. He states he felt increasingly weak and had decreased oral intake. He states he did not take any of his insulin yesterday. Patient is a longstanding diabetic with lower extremity peripheral neuropathy. Patient states he did have a very mild fall as he felt weak while standing in front of the sink and lowered himself to the ground landing on his buttocks. He denies any concern for injury from this. Patient states he does not use any anticoagulation. He states he does take aspirin and Plavix. 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 He denies chest pain, cough, nasal congestion, abdominal pain, nausea, vomiting, change in stools. Patient states he does normally have lower extremity edema that is unchanged. He does not typically wear home oxygen. Denies any history of tobacco abuse, asthma, or COPD. Patient was noted by EMS to be mildly hypoxic was 88% on room air on arrival here and was placed on 2 L via nasal cannula. Pt seen during a time of high acuity and national emergency pandemic while wearing PPE. Home Medications Medication Instructions Recorded Confirmed Type amlodipine 10 mg tablet 10 mg PO QAM 06/17/21 12/01/21 History atorvastatin 80 mg tablet 80 mg PO QAM 06/17/21 12/01/21 History clopidogrel 75 mg tablet 75 mg PO QAM 06/17/21 12/01/21 History furosemide 40 mg tablet 40 mg PO UD 06/17/21 12/01/21 History gabapentin 300 mg capsule 300 mg PO TID 06/17/21 12/01/21 History insulin NPH isoph U-100 human 100 100 unit subcut UD 06/17/21 12/01/21 History unit/mL subcutaneous suspension (Novolin N NPH U-100 Insulin isophane) insulin regular human 100 unit/mL 20 unit subcut AC 06/17/21 12/01/21 History injection solution (Novolin R Regular U-100 Insulin) metoprolol succinate 50 mg 50 mg PO QPM 06/17/21 12/01/21 History tablet,extended release 24 hr sildenafil 50 mg tablet 50 mg PO DAILY PRN Erectile 06/17/21 12/01/21 History Dysfunction aspirin 81 mg tablet,delayed 81 mg PO QAM 12/01/21 12/01/21 History release cholecalciferol (vitamin D3) 25 75 mcg PO DAILY 12/01/21 12/01/21 History mcg (1,000 unit) tablet (Vitamin D3) oxycodone 5 mg tablet 5 mg PO HS PRN Pain, Severe 12/01/21 12/01/21 History Allergies Allergy/AdvReac Type Severity Reaction Status Date / Time losartan Allergy Diarrhea Unverified 12/01/21 21:45 lisinopril AdvReac Severe Cough Verified 12/01/21 21:45 Past Med/Surg History Medical History Cerebrovascular disease stroke 2013 CKD (chronic kidney disease), stage IV Diabetes mellitus type 2 with complications Diabetic neuropathy Dyslipidemia Hypertension Hypertensive heart disease Ischemic cardiomyopathy EF 35-40% Kidney stone Morbid obesity Surgical History H/O knee surgery History of tonsillectomy S/P surgical manipulation of ankle joint Stented coronary artery JOAO placement to the Circumflex, Proximal LAD and mid LAD with a [employer] of his RCA Social History Smoking Status: Never smoker Second Hand Exposure: No; Hx Alcohol Use: No Hx Substance Use: No Preferred Language: Kinyarwanda Communication Ability: Effective Safety Leader Required: No Beliefs That Will Affect Care: None marital status: Current Living Situation: Alone Current Living Situation Comment: alone in apartment building current occupational status: retired current occupation: Retired How many Children do You have: 3 Other Information That Helps Us Care for You: No Feels Safe at Home: Yes Safety Concerns: Feels Safe At This Time Assistive Devices: Cane and Scooter/Electric Scooter Review of Systems A total of 10 systems reviewed and were otherwise negative All systems reviewed & are unremarkable except as noted in HPI & below Physical Exam Vital Signs Vital Signs - 24 hr 12/01/21 19:12 12/01/21 19:14 Temperature 39.4 C H Temperature Source Oral Pulse Rate [Finger] 94 H Respiratory Rate 22 Respiratory Effort / Characteristics Labored Respiratory Depth Shallow Blood Pressure [Left Arm] 148/67 H Blood Pressure Mean [Left Arm] 94 Pulse Oximetry 88 L Oxygen Delivery Method Room Air Oxygen Flow Rate 2 Sepsis Recent Fever Within 48 Hours Yes Sepsis New/Unexplained Change in Mental Status Yes Sepsis Action Taken by Nursing No Action Required GENERAL: alert, ill appearing, well nourished, no distress, non-toxic, BMI >52 EYE EXAM: normal conjunctiva, PERRL and EOM's grossly intact OROPHARYNX: no exudate, no erythema, lips, buccal mucosa, and tongue normal and mucous membranes are moist NECK: supple, no nuchal rigidity, no adenopathy, non-tender LUNGS: Clear but decreased to auscultation. Normal chest wall mechanics, no w/r/r HEART: no murmurs, S1 normal and S2 normal ABDOMEN: abdomen soft, non-tender, normo-active bowel sounds, no masses, no rebound or guarding. BACK: Back is symmetrical on inspection and there is no deformity, no midline tenderness, no CVA tenderness. SKIN: no rashes and no bruising UPPER EXTREMITIES: upper extremities are grossly normal. FROM, nml pulses b/l. LOWER EXTREMITIES: 3+ b/l pitting edema. FROM, nml pulses b/l. Along the right great toe there is an enlarged area of callus with central ulceration. Evidence of poor hygiene noted to patient's feet bilaterally. NEURO EXAM: Normal sensorium, cranial nerves II-XII grossly intact, normal speech, no gross weakness of arms, no gross weakness of legs. Gross sensation i ntact. Course Administered Medications Aspirin (Aspirin 81 Mg Ectab) 81 mg PO [facility] Stop: 01/01/22 08:59 Last Admin: 12/02/21 07:55 Dose: 81 mg Documented By: KGY Clopidogrel Bisulfate (Clopidogrel Bisulfate 75 Mg Tab) 75 mg PO [facility] Stop: 01/01/22 08:59 Last Admin: 12/02/21 07:54 Dose: 75 mg Documented By: MEERA Doxycycline Hyclate (Doxycycline Hyclate 100 Mg Cap) 100 mg PO BID JAYA Stop: 12/09/21 08:59 Last Admin: 12/02/21 19:33 Dose: 100 mg Documented By: Admin: 12/02/21 07:55 Dose: 100 mg Documented By: MEERA Heparin Sodium (Porcine) (Heparin Sod 5,000 Unit/0.5 Ml Vial) 5,000 units SQ Q8 JAYA Stop: 01/01/22 05:59 Last Admin: 12/02/21 20:53 Dose: 5,000 units Documented By: Admin: 12/02/21 12:27 Dose: 5,000 units Documented By: Admin: 12/02/21 05:55 Dose: 5,000 units Documented By: DMITRI Cefepime HCl 1,000 mg/ Syringe 11.3 mls @ 5.5 mls/min IV Q24H JAYA Stop: 12/09/21 19:59 Last Admin: 12/02/21 19:33 Dose: 5.5 mls/min Documented By: DMITRI Insulin Aspart (Insulin Aspart Per Unit) 0 units SC ACHS JAYA Stop: 01/01/22 01:14 Last Admin: 12/02/21 20:53 Dose: 2 units Documented By: DMITRI Co-signed By: WEI Admin: 12/02/21 17:18 Dose: 4 units Documented By: DIANNE Co-signed By: IVETTE Admin: 12/02/21 12:23 Dose: 6 units Documented By: MEERA Co-signed By: IVETTE Admin: 12/02/21 07:51 Dose: 9 units Documented By: MEERA Co-signed By: VALERI Admin: 12/02/21 01:32 Dose: Not Given Documented By: DMITRI Insulin Glargine (Lantus Per Unit Charge) 5 units SQ BID JAYA Stop: 01/01/22 08:59 Last Admin: 12/02/21 20:53 Dose: 5 units Documented By: DMITRI Co-signed By: WEI Admin: 12/02/21 08:01 Dose: 5 units Documented By: MEERA Co-signed By: VALERI Metoprolol Succinate (Metoprolol Succ 50mg Ext Rel Tab) 50 mg PO QPM JAYA Stop: 01/01/22 00:40 Last Admin: 12/02/21 19:33 Dose: 50 mg Documented By: Admin: 12/02/21 01:58 Dose: 50 mg Documented By: DMITRI Discontinued Medications Amlodipine Besylate (Amlodipine Besylate 5 Mg Tab) 10 mg PO QAM JAYA Stop: 01/01/22 08:59 Last Admin: 12/02/21 07:54 Dose: 10 mg Documented By: MEERA Furosemide (Furosemide 40 Mg/4 Ml Vial) 80 mg IV ONE ONE Stop: 12/01/21 21:44 Last Admin: 12/01/21 22:14 Dose: 80 mg Documented By: MELANY Furosemide (Furosemide 40 Mg/4 Ml Vial) 60 mg IV ONE ONE Stop: 12/02/21 00:42 Last Admin: 12/02/21 01:24 Dose: 60 mg Documented By: DMITRI Sodium Chloride (Nss 1000ml) 1,000 mls @ 125 mls/hr IV .Q8H JAYA Stop: 12/31/21 19:29 Last Infusion: 12/02/21 01:04 Dose: 0 mls/hr Documented By: Admin: 12/01/21 19:28 Dose: 125 mls/hr Documented By: MELANY Acetaminophen (Ofirmev) 1,000 mg in 100 mls @ 400 mls/hr IV NOW STA Stop: 12/01/21 19:58 Last Infusion: 12/01/21 21:31 Dose: 0 mls/hr Documented By: Admin: 12/01/21 20:10 Dose: 400 mls/hr Documented By: MELANY Cefepime HCl (Maxipime) 2,000 mg in 20 mls @ 5 mls/min IV NOW STA; Protocol Stop: 12/01/21 19:48 Last Admin: 12/01/21 20:10 Dose: 5 mls/min Documented By: MELANY Albumin Human (Albumin 25% 100 Ml) 25 gm in 100 mls @ 50 mls/hr IV ONE ONE Stop: 12/01/21 23:40 Last Infusion: 12/02/21 00:15 Dose: 0 mls/hr Documented By: Admin: 12/01/21 22:13 Dose: 50 mls/hr Documented By: MELANY Magnesium Sulfate/Dextrose (Magnesium Sulfate / D5w) 1 gm in 100 mls @ 50 mls/hr IV ONE ONE Stop: 12/01/21 23:42 Last Infusion: 12/02/21 00:16 Dose: 0 mls/hr Documented By: Admin: 12/01/21 22:14 Dose: 50 mls/hr Documented By: MELANY Doxycycline Hyclate 100 mg/ (Dextrose) 110 mls @ 50 mls/hr IV NOW STA Stop: 12/02/21 01:10 Last Infusion: 12/02/21 06:25 Dose: 0 mls/hr Documented By: Admin: 12/02/21 01:24 Dose: 50 mls/hr Documented By: DMITRI Albumin Human (Albumin 25% 100 Ml) 25 gm in 100 mls @ 50 mls/hr IV ONE ONE Stop: 12/02/21 09:59 Last Infusion: 12/02/21 10:19 Dose: 0 mls/hr Documented By: Admin: 12/02/21 07:52 Dose: 50 mls/hr Documented By: MEERA Bumetanide 2 mg/ Syringe 8 mls @ 4 mls/min IV ONE ONE Stop: 12/02/21 15:29 Last Admin: 12/02/21 17:18 Dose: 4 mls/min Documented By: DIANNE Bumetanide 2 mg/ Syringe 8 mls @ 4 mls/min IV ONE ONE Stop: 12/02/21 20:01 Last Admin: 12/02/21 20:59 Dose: 4 mls/min Documented By: DMITRI Insulin Glargine (Lantus Per Unit Charge) 5 units SQ NOW STA Stop: 12/02/21 01:15 Last Admin: 12/02/21 01:24 Dose: 5 units Documented By: DMITRI Co-signed By: NAZARIO Insulin Human Regular (Novolin-R Insulin Per Unit Charge) 4 units SC NOW STA Stop: 12/01/21 21:21 Last Admin: 12/01/21 22:27 Dose: 4 units Documented By: MELANY Co-signed By: ASW Ipratropium Farwell (Ipratropium Farwell Neb Soln 0.02% 2.5 Ml Vial) 0.5 mg INH NOW STA Stop: 12/01/21 21:43 Last Admin: 12/01/21 22:13 Dose: 0.5 mg Documented By: BWT Levalbuterol HCl (Levalbuterol 1.25mg/0.5ml Neb) 1.25 mg INH NOW STA Stop: 12/01/21 21:43 Last Admin: 12/01/21 22:13 Dose: 1.25 mg Documented By: BUDDY Sodium Bicarbonate (Sodium Bicarbonate 8.4% Inj 50 Meq/50 Ml Vial) 50 meq IV NOW STA Stop: 12/01/21 21:42 Last Admin: 12/01/21 22:30 Dose: 50 meq Documented By: MELANY Critical Care Time Critical Care Time: Yes Total Critical Care Time: 48 Critical care of 48 min performed to assess and manage high likelihood of life-threatening respiratory failure and sepsis, involving labs and imaging performed with assessment to evaluate respiratory failure and sepsis diagnosis with frequent reassessment. This time includes bedside time, treatment discussions with patient/family/consultants, documentation time and excludes pro cedure time. Medical Decision Making Differential Diagnosis Differential diagnosis: Etiologies such as viral syndrome, otitis, pharyngitis, pneumonia, influenza, meningitis, urinary tract infection, sepsis, bacteremia, as well as others were entertained. Medical Records Attestation: I reviewed the patient's medical records. Home Medications Current Medication List: was personally reviewed by me Laboratory Data Attestation: I reviewed the patient's lab results. Result diagrams: 12/02/21 06:01 12/02/21 06:01 Lab Results 12/01/21 12/01/21 12/01/21 Range/Units 18:47 18:47 18:47 WBC 18.43 H (4.8-10.8) K/ul RBC 3.59 L (4.63-6.08) M/uL Hgb 10.3 L (14.0-18.0) g/dl Hct 31.1 L (40.1-51.0) % MCV 86.6 (80.0-100.0) fL MCH 28.7 (25.0-34.0) pg MCHC 33.1 (32.0-36.0) g/dL RDW Std Deviation 43.5 (36.4-46.3) fL RDW Coeff of Nasim 13.7 (11.5-14.5) % Plt Count 191 (130-400) K/uL MPV 10.2 (9.4-12.4) fL Immature Gran % (Auto) 0.7 % Neut % (Auto) 86.6 % Lymph % (Auto) 4.6 % Glenn % (Auto) 7.9 % Eos % (Auto) 0.0 % Baso % (Auto) 0.2 % Neut # (Auto) 15.95 H (1.4-6.5) K/uL Lymph # (Auto) 0.85 L (1.2-3.4) K/uL Glenn # (Auto) 1.46 H (0.24-0.82) K/uL Eos # (Auto) 0.00 (0-0.50) K/uL Baso # (Auto) 0.04 (0-0.2) K/uL Immature Gran # (Auto) 0.13 H (0.00-0.02) K/uL PT 12.7 H (9.0-12.0) Seconds INR 1.2 H (0.9-1.1) Sodium (136-145) mmol/L Potassium (3.5-5.1) mmol/L Chloride (98-107) mmol/L Carbon Dioxide (21-32) mmol/L Anion Gap (3-11) BUN (6-23) mg/dl Creatinine (0.6-1.4) mg/dl Est Cr Clr Drug Dosing ml/min Est GFR ( Amer) ml/min Est GFR (Non-Af Amer) ml/min BUN/Creatinine Ratio (10-20) Glucose (70-99(Fasting)) mg/dl Lactate (0.4-2.0) mmol/L Calcium (8.5-10.1) mg/dl Magnesium (1.7-2.4) mg/dl Total Bilirubin (0.2-1.0) mg/dl AST (13-39) U/L ALT (7-52) U/L Alkaline Phosphatase (34-104) U/L Total Creatine Kinase (30-223) U/L Troponin I High Sens (0-20) pg/ml Total Protein (6.0-8.3) gm/dl Albumin (3.4-5.0) gm/dl Globulin (2.5-4.0) gm/dl Albumin/Globulin Ratio (0.9-2) Procalcitonin 5.64 H (0-0.5) ng/ml TSH (0.300-4.500) uIu/ml Adenovirus (PCR) (NotDetected) B. pertussis DNA (PCR) (NotDetected) B.parapertussis DNA PCR (NotDetected) C. pneumoniae DNA (PCR) (NotDetected) Coronavirus OC43 (PCR) (NotDetected) Coronavirus HKU1 (PCR) (NotDetected) Coronavirus 229E (PCR) (NotDetected) SARS-CoV-2 (PCR) (NotDetected) Coronavirus NL63 (PCR) (NotDetected) Human Metapneumovir PCR (NotDetected) Influenza Type A (PCR) (NotDetected) Influenza Type B (PCR) (NotDetected) M. pneumoniae (PCR) (NotDetected) Parainfluenza 1 (PCR) (NotDetected) Parainfluenza 2 (PCR) (NotDetected) Parainfluenza 3 (PCR) (NotDetected) Parainfluenza 4 (PCR) (NotDetected) RSV (PCR) (NotDetected) Entero/Rhino (PCR) (NotDetected) 12/01/21 12/01/21 12/01/21 Range/Units 18:47 18:47 18:47 WBC (4.8-10.8) K/ul RBC (4.63-6.08) M/uL Hgb (14.0-18.0) g/dl Hct (40.1-51.0) % MCV (80.0-100.0) fL MCH (25.0-34.0) pg MCHC (32.0-36.0) g/dL RDW Std Deviation (36.4-46.3) fL RDW Coeff of Nasim (11.5-14.5) % Plt Count (130-400) K/uL MPV (9.4-12.4) fL Immature Gran % (Auto) % Neut % (Auto) % Lymph % (Auto) % Glenn % (Auto) % Eos % (Auto) % Baso % (Auto) % Neut # (Auto) (1.4-6.5) K/uL Lymph # (Auto) (1.2-3.4) K/uL Glenn # (Auto) (0.24-0.82) K/uL Eos # (Auto) (0-0.50) K/uL Baso # (Auto) (0-0.2) K/uL Immature Gran # (Auto) (0.00-0.02) K/uL PT (9.0-12.0) Seconds INR (0.9-1.1) Sodium 131 L (136-145) mmol/L Potassium 5.1 (3.5-5.1) mmol/L Chloride 101 (98-107) mmol/L Carbon Dioxide 18 L (21-32) mmol/L Anion Gap 12 H (3-11) BUN 84 H (6-23) mg/dl Creatinine 4.01 H (0.6-1.4) mg/dl Est Cr Clr Drug Dosing 24.7 ml/min Est GFR ( Amer) 16.3 ml/min Est GFR (Non-Af Amer) 14.1 ml/min BUN/Creatinine Ratio 20.9 H (10-20) Glucose 222 H (70-99(Fasting)) mg/dl Lactate (0.4-2.0) mmol/L Calcium 8.5 (8.5-10.1) mg/dl Magnesium 1.7 (1.7-2.4) mg/dl Total Bilirubin 1.0 (0.2-1.0) mg/dl AST 22 (13-39) U/L ALT 14 (7-52) U/L Alkaline Phosphatase 112 H (34-104) U/L Total Creatine Kinase 713 H (30-223) U/L Troponin I High Sens 1586.8 H* (0-20) pg/ml Total Protein 7.5 (6.0-8.3) gm/dl Albumin 3.9 (3.4-5.0) gm/dl Globulin 3.6 (2.5-4.0) gm/dl Albumin/Globulin Ratio 1.1 (0.9-2) Procalcitonin (0-0.5) ng/ml TSH 2.929 (0.300-4.500) uIu/ml Adenovirus (PCR) (NotDetected) B. pertussis DNA (PCR) (NotDetected) B.parapertussis DNA PCR (NotDetected) C. pneumoniae DNA (PCR) (NotDetected) Coronavirus OC43 (PCR) (NotDetected) Coronavirus HKU1 (PCR) (NotDetected) Coronavirus 229E (PCR) (NotDetected) SARS-CoV-2 (PCR) (NotDetected) Coronavirus NL63 (PCR) (NotDetected) Human Metapneumovir PCR (NotDetected) Influenza Type A (PCR) (NotDetected) Influenza Type B (PCR) (NotDetected) M. pneumoniae (PCR) (NotDetected) Parainfluenza 1 (PCR) (NotDetected) Parainfluenza 2 (PCR) (NotDetected) Parainfluenza 3 (PCR) (NotDetected) Parainfluenza 4 (PCR) (NotDetected) RSV (PCR) (NotDetected) Entero/Rhino (PCR) (NotDetected) 12/01/21 12/01/21 Range/Units 19:25 21:12 WBC (4.8-10.8) K/ul RBC (4.63-6.08) M/uL Hgb (14.0-18.0) g/dl Hct (40.1-51.0) % MCV (80.0-100.0) fL MCH (25.0-34.0) pg MCHC (32.0-36.0) g/dL RDW Std Deviation (36.4-46.3) fL RDW Coeff of Nasim (11.5-14.5) % Plt Count (130-400) K/uL MPV (9.4-12.4) fL Immature Gran % (Auto) % Neut % (Auto) % Lymph % (Auto) % Glenn % (Auto) % Eos % (Auto) % Baso % (Auto) % Neut # (Auto) (1.4-6.5) K/uL Lymph # (Auto) (1.2-3.4) K/uL Glenn # (Auto) (0.24-0.82) K/uL Eos # (Auto) (0-0.50) K/uL Baso # (Auto) (0-0.2) K/uL Immature Gran # (Auto) (0.00-0.02) K/uL PT (9.0-12.0) Seconds INR (0.9-1.1) Sodium (136-145) mmol/L Potassium (3.5-5.1) mmol/L Chloride (98-107) mmol/L Carbon Dioxide (21-32) mmol/L Anion Gap (3-11) BUN (6-23) mg/dl Creatinine (0.6-1.4) mg/dl Est Cr Clr Drug Dosing ml/min Est GFR ( Amer) ml/min Est GFR (Non-Af Amer) ml/min BUN/Creatinine Ratio (10-20) Glucose (70-99(Fasting)) mg/dl Lactate 1.1 (0.4-2.0) mmol/L Calcium (8.5-10.1) mg/dl Magnesium (1.7-2.4) mg/dl Total Bilirubin (0.2-1.0) mg/dl AST (13-39) U/L ALT (7-52) U/L Alkaline Phosphatase (34-104) U/L Total Creatine Kinase (30-223) U/L Troponin I High Sens (0-20) pg/ml Total Protein (6.0-8.3) gm/dl Albumin (3.4-5.0) gm/dl Globulin (2.5-4.0) gm/dl Albumin/Globulin Ratio (0.9-2) Procalcitonin (0-0.5) ng/ml TSH (0.300-4.500) uIu/ml Adenovirus (PCR) Not Detected (NotDetected) B. pertussis DNA (PCR) Not Detected (NotDetected) B.parapertussis DNA PCR Not Detected (NotDetected) C. pneumoniae DNA (PCR) Not Detected (NotDetected) Coronavirus OC43 (PCR) Not Detected (NotDetected) Coronavirus HKU1 (PCR) Not Detected (NotDetected) Coronavirus 229E (PCR) Not Detected (NotDetected) SARS-CoV-2 (PCR) Not Detected (NotDetected) Coronavirus NL63 (PCR) Not Detected (NotDetected) Human Metapneumovir PCR Not Detected (NotDetected) Influenza Type A (PCR) Not Detected (NotDetected) Influenza Type B (PCR) Not Detected (NotDetected) M. pneumoniae (PCR) Not Detected (NotDetected) Parainfluenza 1 (PCR) Not Detected (NotDetected) Parainfluenza 2 (PCR) Not Detected (NotDetected) Parainfluenza 3 (PCR) Not Detected (NotDetected) Parainfluenza 4 (PCR) Not Detected (NotDetected) RSV (PCR) Not Detected (NotDetected) Entero/Rhino (PCR) Not Detected (NotDetected) ECG Data Attestation: I personally reviewed and interpreted this ECG as follows: Indication: + SOB/dyspnea Rate (beats per minute): 94 Rhythm: + normal sinus ECG Intervals/blocks: + Right Bundle branch block and + Normal QT ECG [place]: + Left axis deviation ECG ST segments: + Nonspecific ST abnormalities MDM Narrative An order was placed for continuous cardiac monitoring. The monitor shows a rate of _76__ with _normal sinus__ rhythm. This is a 71-year-old male presents emergency department due to increased weakness, fevers and chills. Patient with multiple medical problems including diabetes and chronic kidney disease. Unknown of possible sick contact. Patient was febrile on arrival, he was also noted to be hypoxic and was started on oxygen via nasal cannula. Given fever and ill appearance, a sepsis evaluation was started. Patient found to have significant leukocytosis as well as elevated procalcitonin. Patient does have a history of CKD, his creatinine was markedly higher compared to his prior baseline. Patient started on gentle IV fluid rehydration and was not given 30 mL/KG per sepsis guidelines due to concern for evolving congestive heart failure as well as GRIFFIN on CKD. Patient found to have evidence of pulmonary edema in addition to his lower extremity edema. Concern for evolving congestive heart failure. Patient found to have a significantly elevated troponin. Patient had no complaints of chest pain, denies shortness of breath as long as he was on the oxygen and sitting upright. Patient was rechecked multiple times in the emergency department and did remain hemodynam ically stable patient was covered with empiric antibiotics. Did discuss all results at bedside as patient was initially requesting to be discharged. After discussion of his results and risk of worsening condition or even , patient was in agreement with plan for additional inpatient evaluation and management. Case discussed with hospitalist. Impression & Plan Sepsis, Acute on chronic renal failure, Acute hypoxemic respiratory failure, CHF (congestive heart failure), Anemia Discharge Plan Visit Data Chief Complaint: Altered Mental Status Stated Complaint: AMS, Fever, Weakness, Hypoxia ED Provider: Emi Kwan Discharge Problem: Sepsis, Acute on chronic renal failure, Acute hypoxemic respiratory failure, CHF (congestive heart failure), Anemia Patient Disposition: Admitted As Inpatient Discharge Instructions Interventions: ED Discharge Assessment Last Done: 12/02/21 00:13
[2021-12-01] MEDS ORDERED: SODIUM CHLORIDE 0.9% 1000ML 1,000 ML IV SCH (19:30)
[2021-12-01] MEDS ORDERED: ACETAMINOPHEN 1,000 MG/100 ML VIAL IV STA (19:44)
[2021-12-01] MEDS ORDERED: CEFEPIME 2,000 MG/20 ML VIAL IV STA (19:45)
[2021-12-01 20:06] LABS: Basophils # (auto) 0.04 K/uL (0-0.2); Basophils % (auto) 0.2 %; Hematocrit (blood only) 31.1 % (40.1-51.0); Hemoglobin 10.3 g/dl (14.0-18.0); Immature Granulocytes # (auto) 0.13 K/uL (0.00-0.02); Immature Granulocytes % (auto) 0.7 %; Lymphocytes # (auto) 0.85 K/uL (1.2-3.4); Lymphocytes % (auto) 4.6 %; Mean Corpuscular Hemoglobin 28.7 pg (25.0-34.0); Mean Corpuscular Hgb Conc 33.1 g/dL (32.0-36.0); Mean Corpuscular Volume 86.6 fL (80.0-100.0); Mean Platelet Volume 10.2 fL (9.4-12.4); Monocytes # (auto) 1.46 K/uL (0.24-0.82); Monocytes % (auto) 7.9 %; Neutrophils # (auto) 15.95 K/uL (1.4-6.5); Neutrophils % (auto) 86.6 %; Platelet Count 191 K/uL (130-400); RDW Coefficient of Variation 13.7 % (11.5-14.5); RDW Standard Deviation 43.5 fL (36.4-46.3); Red Blood Count 3.59 M/uL (4.63-6.08); White Blood Count 18.43 K/ul (4.8-10.8)
[2021-12-01 20:14] LABS: INR 1.2 (0.9-1.1); Prothrombin Time 12.7 Seconds (9.0-12.0)
[2021-12-01 20:25] LABS: Albumin Globulin Ratio 1.1 (0.9-2); Albumin Level 3.9 gm/dl (3.4-5.0); BUN Creatinine Ratio 20.9 (10-20); Calcium 8.5 mg/dl (8.5-10.1); Creatinine Clr Calc Pharmacy 24.7 ml/min; Est GFR (African American) 16.3 ml/min; Est GFR (Non-African American) 14.1 ml/min; Globulin 3.6 gm/dl (2.5-4.0); Magnesium 1.7 mg/dl (1.7-2.4); Potassium 5.1 mmol/L (3.5-5.1); Total Protein 7.5 gm/dl (6.0-8.3); Troponin I High Sensitivity 1586.8 pg/ml (0-20)
[2021-12-01 20:28] LABS: Adenovirus PCR Not Detected (NotDetected); Bordetella parapertussis PCR Not Detected (NotDetected); Bordetella pertussis PCR Not Detected (NotDetected); Chlamydia pneumoniae PCR Not Detected (NotDetected); Coronavirus 229E PCR Not Detected (NotDetected); Coronavirus CoV-2 (COVID19)PCR Not Detected (NotDetected); Coronavirus HKU1 PCR Not Detected (NotDetected); Coronavirus NL63 PCR Not Detected (NotDetected); Coronavirus OC43PCR Not Detected (NotDetected); Human Metapneumovirus PCR Not Detected (NotDetected); Influenza A PCR Not Detected (NotDetected); Influenza B PCR Not Detected (NotDetected); Mycoplasma pneumoniae PCR Not Detected (NotDetected); Parainfluenza Virus 1 PCR Not Detected (NotDetected); Parainfluenza Virus 2 PCR Not Detected (NotDetected); Parainfluenza Virus 3 PCR Not Detected (NotDetected); Parainfluenza Virus 4 PCR Not Detected (NotDetected); Respiratory Syncytial VirusPCR Not Detected (NotDetected); Rhinovirus/Enterovirus PCR Not Detected (NotDetected)
--- NOTE | 2021-12-01 20:42 | XRay Report ---
SINGLE VIEW CHEST CLINICAL HISTORY: Sepsis. FINDINGS: An AP, portable, upright chest radiographs are compared to study dated 12/23/2019. The exami nation is degraded by portable technique and patient rotation. The heart is enlarged noting atherosc lerotic calcification of the thoracic aorta. There is mild pulmonary vascular congestion. There is bi basilar scarring/atelectasis. No airspace consolidation or large pleural effusion is identified. No p neumothorax is seen. The skeletal structures are osteopenic. The bony thorax is grossly intact. Advan ruben arthritic change is seen in the right shoulder. IMPRESSION: Cardiomegaly with pulmonary vascular congestion. ACT 112: Negative or not required by law. Electronically signed by: Ashvin Carter M.D. 12/01/2021 8:41 PM
[2021-12-01] MEDS ORDERED: NovoLIN-R INSULIN PER UNIT CHARGE SC STA (21:20)
[2021-12-01] MEDS ORDERED: SODIUM BICARBONATE 8.4% INJ 50 MEQ/50 ML VIAL IV STA (21:41)
[2021-12-01] MEDS ORDERED: ALBUMIN 25% 100 mL 25 GM/100 ML VIAL IV ONE (21:41)
[2021-12-01] MEDS ORDERED: LEVALBUTEROL 1.25MG/0.5ML NEB INH STA (21:42)
[2021-12-01] MEDS ORDERED: IPRATROPIUM BROMIDE NEB SOLN 0.02% 2.5 ML VIAL INH STA (21:42)
[2021-12-01] MEDS ORDERED: XOPENEX/ATROVENT 1.25mg/0.5MG NEB COMBO NEB STA (21:42)
[2021-12-01] MEDS ORDERED: MAGNESIUM SULFATE / D5W 1 GM/100 ML BAG IV ONE (21:43)
[2021-12-01] MEDS ORDERED: FUROSEMIDE 40 MG/4 ML VIAL IV ONE (21:43)
[2021-12-01] MEDS ORDERED: DOXYCYCLINE HYCLATE 100 MG in DEXTROSE 5% 100 ML IV STA (22:59)
[2021-12-01] MEDS ORDERED: LANTUS PER UNIT CHARGE SQ STA (23:01)
--- NOTE | 2021-12-01 23:01 | History & Physical Report ---
Date of Service December 01, 2021 Assessment & Plan (1) Acute hypoxemic respiratory failure: Plan: Secondary to cardiorenal syndrome History systolic dysfunction History medication noncompliance Troponin elevation secondary to above, rhabdomyolysis contributory Severe sepsis SIRS plus ARF on CKD Secondary to bilateral LE cellulitis rule out DVT ARF on CKD Secondary to sepsis and rhabdomyolysis hx CAD status post stent/CVA valvular heart disease (mild /MR/TR) hyperlipidemia, on statin Rx DM2 insulin requiring, suboptimal control as of recent hemoglobin A1c of 9.04 June 2021 chronic anemia, hemoglobin at baseline Anxiety/mood disorder PCU Supplemental O2 Baseline ABG Lasix albumin Strict I/Os, daily weights, CHF education Cardiology and Nephrology consults for cardiorenal syndrome Update TTE, Follow troponin CS, Doxycycline, Cefepime LE venous Dopplers rule out DVT Follow CPK, appropriate hold statin for now Basal bolus insulin, ISS BG goal 1 10-1 40, carb count coverage, update hemoglobin A1c PT OT eval once medically stable DVT prophylaxis with heparin subcu Full code Text document was generated using [employer] voice recognition software. It may contain grammatical or spelling errors. Kindly contact undersigned for clarification of any documentation item in question. History of Present Illness Chief Complaint: Fever, weakness, chills Primary Care Provider: Ermias Zarate DO History obtained from patient and records. Medical history significant for chronic systolic heart failure (EF 35 to 40%, TTE 2019), CAD status post stent, valvular heart disease (mild /MR/TR), history CVA, hypertension, hyperlipidemia, DM2 insulin requiring, CRI (baseline creatinine 2.9), chronic anemia (baseline hemoglobin 10 ), anxiety/mood disorder. Last confinement June 2021 for ARF on CKD secondary to obstructive uropathy/ureteral stone status post stent placement and stone removal. Serum creatinine back to baseline on discharge. Patient not feeling well for about 2 days. 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 Unable to get up from the floor for few hours. Patient had fever chills, no chest pain, usual shortness of breath. No head trauma, no LOC. Admits to fluid retention and weight gain because he has not been compliant with home diuretic Rx because he hates getting up to pee at night. Family called EMS. ER evaluation recommended but patient declined. Patient noted increased bilateral leg redness with intermittent fever chills. Denies abdominal pain, diarrhea, dysuria. No unusual cough symptoms. O2 sats 88 on room air upon EMS arrival at home Cefepime administered at the ER. 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 Allergies Allergy/AdvReac Type Severity Reaction Status Date / Time losartan Allergy Diarrhea Unverified 12/01/21 21:45 lisinopril AdvReac Severe Cough Verified 12/01/21 21:45 Home Medications Medication Instructions Recorded Confirmed Type amlodipine 10 mg tablet 10 mg PO QAM 06/17/21 12/01/21 History atorvastatin 80 mg tablet 80 mg PO QAM 06/17/21 12/01/21 History clopidogrel 75 mg tablet 75 mg PO QAM 06/17/21 12/01/21 History furosemide 40 mg tablet 40 mg PO UD 06/17/21 12/01/21 History gabapentin 300 mg capsule 300 mg PO TID 06/17/21 12/01/21 History insulin NPH isoph U-100 human 100 100 unit subcut UD 06/17/21 12/01/21 History unit/mL subcutaneous suspension (Novolin N NPH U-100 Insulin isophane) insulin regular human 100 unit/mL 20 unit subcut AC 06/17/21 12/01/21 History injection solution (Novolin R Regular U-100 Insulin) metoprolol succinate 50 mg 50 mg PO QPM 06/17/21 12/01/21 History tablet,extended release 24 hr sildenafil 50 mg tablet 50 mg PO DAILY PRN Erectile 06/17/21 12/01/21 History Dysfunction aspirin 81 mg tablet,delayed 81 mg PO QAM 12/01/21 12/01/21 History release cholecalciferol (vitamin D3) 25 75 mcg PO DAILY 12/01/21 12/01/21 History mcg (1,000 unit) tablet (Vitamin D3) oxycodone 5 mg tablet 5 mg PO HS PRN Pain, Severe 12/01/21 12/01/21 History Past Med/Surg History Medical History Cerebrovascular disease stroke 2013 CKD (chronic kidney disease), stage IV Diabetes mellitus type 2 with complications Diabetic neuropathy Dyslipidemia Hypertension Hypertensive heart disease Ischemic cardiomyopathy EF 35-40% Kidney stone Morbid obesity Surgical History H/O knee surgery History of tonsillectomy S/P surgical manipulation of ankle joint Stented coronary artery JOAO placement to the Circumflex, Proximal LAD and mid LAD 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 Social History Smoking Status: Never smoker Second Hand Exposure: No; Hx Alcohol Use: No Hx Substance Use: No Preferred Language: Serbian Communication Ability: Effective Flow Worker Required: No Beliefs That Will Affect Care: None marital status: Current Living Situation: Alone Current Living Situation Comment: alone in apartment building current occupational status: retired current occupation: Retired Other Information That Helps Us Care for You: No Feels Safe at Home: Yes Safety Concerns: Feels Safe At This Time Assistive Devices: None Review of Systems Review of Systems: As per HPI, all other systems reviewed and negative Physical Exam Physical Exam: GENERAL: Slightly uncomfortable, morbidly obese, unkempt, no respiratory distress SKIN: Pallor, warm HEENT: Pale palpebral conjunctivae, no ptosis, dry buccal mucosa, nasal cannula in place NECK : Supple, short neck, no tenderness CHEST : Decreased breath sounds, occasional expiratory wheezes, no tenderness HEART : RRR, no obvious murmurs ABDOMEN: Abdominal distention, nontender EXTREMITIES : Bilateral LE swelling with indurated areas with minimal tenderness, no other conspicuous deformities noted NEUROLOGIC : Coherent, no facial asymmetry, gait and stance not assessed Results & Data Results & Data ([facility]) Vital Signs (Past 12 Hours) Vital Signs Temp Pulse Pulse Resp BP BP Pulse Ox 12/01/21 22:50 95 12/01/21 22:40 89 L 12/01/21 22:30 126/60 92 12/01/21 22:30 126/60 12/01/21 22:22 91 12/01/21 22:10 90 24 98 12/01/21 22:00 89 12 93 12/01/21 22:00 144/84 H 12/01/21 22:10 88 22 93 12/01/21 21:50 90 25 H 93 12/01/21 21:40 91 H 26 H 92 12/01/21 21:30 91 H 15 94 12/01/21 21:30 146/76 H 12/01/21 21:20 92 H 26 H 91 12/01/21 21:10 93 H 30 H 92 12/01/21 21:01 94 H 32 H 91 12/01/21 21:01 117/51 L 12/01/21 21:00 94 H 28 H 91 12/01/21 20:50 95 H 33 H 90 12/01/21 20:40 99 H 35 H 92 12/01/21 20:30 93 H 29 H 93 12/01/21 20:30 132/69 12/01/21 20:26 95 H 34 H 92 12/01/21 20:10 95 H 32 H 92 12/01/21 20:02 124/53 L 12/01/21 20:02 29 H 93 12/01/21 20:00 94 H 36 H 94 12/01/21 19:50 93 H 16 95 12/01/21 19:40 96 H 32 H 94 12/01/21 19:31 93/59 L 12/01/21 19:31 94 H 26 H 96 12/01/21 19:30 96 H 26 H 96 12/01/21 19:25 143/69 H 12/01/21 19:25 94 H 33 H 94 12/01/21 19:20 93 H 35 H 117/51 L 94 12/01/21 19:10 94 H 29 H 96 12/01/21 19:00 93 H 35 H 93 12/01/21 18:50 94 H 36 H 92 12/01/21 18:47 90 34 H 91 12/01/21 18:47 148/67 H 12/01/21 21:25 36.8 C 12/01/21 19:12 39.4 C H 94 H 22 148/67 H 88 L O2 Del Method O2 Flow Rate 12/01/21 22:50 12/01/21 22:40 12/01/21 22:30 12/01/21 22:30 12/01/21 22:22 12/01/21 22:10 12/01/21 22:00 12/01/21 22:00 12/01/21 22:10 Room Air, Nasal Cannula 3 12/01/21 21:50 12/01/21 21:40 12/01/21 21:30 12/01/21 21:30 12/01/21 21:20 12/01/21 21:10 12/01/21 21:01 12/01/21 21:01 12/01/21 21:00 12/01/21 20:50 12/01/21 20:40 12/01/21 20:30 12/01/21 20:30 12/01/21 20:26 12/01/21 20:10 12/01/21 20:02 12/01/21 20:02 12/01/21 20:00 12/01/21 19:50 12/01/21 19:40 12/01/21 19:31 12/01/21 19:31 12/01/21 19:30 12/01/21 19:25 12/01/21 19:25 12/01/21 19:20 12/01/21 19:10 12/01/21 19:00 12/01/21 18:50 12/01/21 18:47 12/01/21 18:47 12/01/21 21:25 12/01/21 19:12 Room Air 2 Laboratory Results Laboratory Results WBC 18.43 K/ul (4.8-10.8) H 12/01/21 18:47 RBC 3.59 M/uL (4.63-6.08) L 12/01/21 18:47 Hgb 10.3 g/dl (14.0-18.0) L 12/01/21 18:47 Hct 31.1 % (40.1-51.0) L 12/01/21 18:47 MCV 86.6 fL (80.0-100.0) 12/01/21 18:47 MCH 28.7 pg (25.0-34.0) 12/01/21 18:47 MCHC 33.1 g/dL (32.0-36.0) 12/01/21 18:47 RDW Std Deviation 43.5 fL (36.4-46.3) 12/01/21 18:47 RDW Coeff of Nasim 13.7 % (11.5-14.5) 12/01/21 18:47 Plt Count 191 K/uL (130-400) 12/01/21 18:47 MPV 10.2 fL (9.4-12.4) 12/01/21 18:47 Immature Gran % (Auto) 0.7 % 12/01/21 18:47 Neut % (Auto) 86.6 % 12/01/21 18:47 Lymph % (Auto) 4.6 % 12/01/21 18:47 Cobb % (Auto) 7.9 % 12/01/21 18:47 Eos % (Auto) 0.0 % 12/01/21 18:47 Baso % (Auto) 0.2 % 12/01/21 18:47 Neut # (Auto) 15.95 K/uL (1.4-6.5) H 12/01/21 18:47 Lymph # (Auto) 0.85 K/uL (1.2-3.4) L 12/01/21 18:47 Cobb # (Auto) 1.46 K/uL (0.24-0.82) H 12/01/21 18:47 Eos # (Auto) 0.00 K/uL (0-0.50) 12/01/21 18:47 Baso # (Auto) 0.04 K/uL (0-0.2) 12/01/21 18:47 Immature Gran # (Auto) 0.13 K/uL (0.00-0.02) H 12/01/21 18:47 PT 12.7 Seconds (9.0-12.0) H 12/01/21 18:47 INR 1.2 (0.9-1.1) H 12/01/21 18:47 Sodium 131 mmol/L (136-145) L 12/01/21 18:47 Potassium 5.1 mmol/L (3.5-5.1) 12/01/21 18:47 Chloride 101 mmol/L (98-107) 12/01/21 18:47 Carbon Dioxide 18 mmol/L (21-32) L 12/01/21 18:47 Anion Gap 12 (3-11) H 12/01/21 18:47 BUN 84 mg/dl (6-23) H 12/01/21 18:47 Creatinine 4.01 mg/dl (0.6-1.4) H 12/01/21 18:47 Est Cr Clr Drug Dosing 24.7 ml/min 12/01/21 18:47 Est GFR ( Amer) 16.3 ml/min 12/01/21 18:47 Est GFR (Non-Af Amer) 14.1 ml/min 12/01/21 18:47 BUN/Creatinine Ratio 20.9 (10-20) H 12/01/21 18:47 Glucose 222 mg/dl (70-99(Fasting)) H 12/01/21 18:47 Lactate 1.1 mmol/L (0.4-2.0) 12/01/21 21:12 Calcium 8.5 mg/dl (8.5-10.1) 12/01/21 18:47 Magnesium 1.7 mg/dl (1.7-2.4) 12/01/21 18:47 Total Bilirubin 1.0 mg/dl (0.2-1.0) 12/01/21 18:47 AST 22 U/L (13-39) 12/01/21 18:47 ALT 14 U/L (7-52) 12/01/21 18:47 Alkaline Phosphatase 112 U/L (34-104) H 12/01/21 18:47 Total Creatine Kinase 713 U/L (30-223) H 12/01/21 18:47 Troponin I High Sens 1586.8 pg/ml (0-20) H* 12/01/21 18:47 Total Protein 7.5 gm/dl (6.0-8.3) 12/01/21 18:47 Albumin 3.9 gm/dl (3.4-5.0) 12/01/21 18:47 Globulin 3.6 gm/dl (2.5-4.0) 12/01/21 18:47 Albumin/Globulin Ratio 1.1 (0.9-2) 12/01/21 18:47 Procalcitonin 5.64 ng/ml (0-0.5) H 12/01/21 18:47 TSH 2.929 uIu/ml (0.300-4.500) 12/01/21 18:47 Adenovirus (PCR) Not Detected (NotDetected) 12/01/21 19:25 B. pertussis DNA (PCR) Not Detected (NotDetected) 12/01/21 19:25 B.parapertussis DNA PCR Not Detected (NotDetected) 12/01/21 19:25 C. pneumoniae DNA (PCR) Not Detected (NotDetected) 12/01/21 19:25 Coronavirus OC43 (PCR) Not Detected (NotDetected) 12/01/21 19:25 Coronavirus HKU1 (PCR) Not Detected (NotDetected) 12/01/21 19:25 Coronavirus 229E (PCR) Not Detected (NotDetected) 12/01/21 19:25 SARS-CoV-2 (PCR) Not Detected (NotDetected) 12/01/21 19:25 Coronavirus NL63 (PCR) Not Detected (NotDetected) 12/01/21 19:25 Human Metapneumovir PCR Not Detected (NotDetected) 12/01/21 19:25 Influenza Type A (PCR) Not Detected (NotDetected) 12/01/21 19:25 Influenza Type B (PCR) Not Detected (NotDetected) 12/01/21 19:25 M. pneumoniae (PCR) Not Detected (NotDetected) 12/01/21 19:25 Parainfluenza 1 (PCR) Not Detected (NotDetected) 12/01/21 19:25 Parainfluenza 2 (PCR) Not Detected (NotDetected) 12/01/21 19:25 Parainfluenza 3 (PCR) Not Detected (NotDetected) 12/01/21 19:25 Parainfluenza 4 (PCR) Not Detected (NotDetected) 12/01/21 19:25 RSV (PCR) Not Detected (NotDetected) 12/01/21 19:25 Entero/Rhino (PCR) Not Detected (NotDetected) 12/01/21 19:25 Impressions Chest X-Ray 12/01/21 19:20 SINGLE VIEW CHEST CLINICAL HISTORY: Sepsis. FINDINGS: An AP, portable, upright chest radiographs are compared to study dated 12/23/2019. The examination is degraded by portable technique and patient rotation. The heart is enlarged noting atherosclerotic calcification of the thoracic aorta. There is mild pulmonary vascular congestion. There is bibasilar scarring/atelectasis. No airspace consolidation or large pleural effusion is identified. No pneumothorax is seen. The skeletal structures are osteopenic. The bony thorax is grossly intact. Advanced arthritic change is seen in the right shoulder. IMPRESSION: Cardiomegaly with pulmonary vascular congestion. ACT 112: Negative or not required by law. Electronically signed by: Ashvin Carter M.D. 12/01/2021 8:41 PM Diagnostic Findings EKG as per my interpretation :Rate 95, NSR, LAD, RBBB, T wave abnormalities inferior leads
[2021-12-01] MEDS ORDERED: HYDROmorphone INJ 0.5 MG/0.5 ML SYR IV PRN (23:13)
[2021-12-01] MEDS ORDERED: PROMETHAZINE HCL 12.5 MG in SODIUM CHLORIDE 0.9% 50 ML IV PRN (23:13)
[2021-12-02] MEDS ORDERED: FUROSEMIDE 40 MG/4 ML VIAL IV ONE (00:41)
[2021-12-02] MEDS ORDERED: GLUCOSE 40% GEL 15 GM TUBE PO PRN (00:41)
[2021-12-02] MEDS ORDERED: CARBOHYDRATES FOR HYPOGLYCEMIA PO PRN (00:41)
[2021-12-02] MEDS ORDERED: GLUCAGON FOR INJ 1 MG VIAL SQ PRN (00:41)
[2021-12-02] MEDS ORDERED: ACETAMINOPHEN 325 MG TAB PO PRN (00:41)
[2021-12-02] MEDS ORDERED: NITROGLYCERIN SL 0.4 MG/TAB TAB SL PRN (00:41)
[2021-12-02] MEDS ORDERED: DEXTROSE 50% 50 ML SYRINGE IV PRN (00:41)
[2021-12-02] MEDS ORDERED: GLUCOSE 10 TAB/TUBE PO PRN (00:41)
[2021-12-02] MEDS ORDERED: LANTUS PER UNIT CHARGE SQ STA (01:14)
[2021-12-02] MEDS: INSULIN ASPART PER UNIT SC SCH ×5 (01:32→20:53)
[2021-12-02] MEDS: METOPROLOL SUCC 50MG EXT REL TAB PO SCH ×2 (01:58→19:33)
[2021-12-02] MEDS: HEPARIN SOD 5,000 UNIT/0.5 ML VIAL SQ SCH ×3 (05:55→20:53)
[2021-12-02 06:22] LABS: Basophils # (auto) 0.05 K/uL (0-0.2); Basophils % (auto) 0.3 %; Hematocrit (blood only) 29.5 % (40.1-51.0); Hemoglobin 9.7 g/dl (14.0-18.0); Immature Granulocytes # (auto) 0.15 K/uL (0.00-0.02); Lymphocytes # (auto) 1.05 K/uL (1.2-3.4); Lymphocytes % (auto) 6.7 %; Mean Corpuscular Hemoglobin 28.2 pg (25.0-34.0); Mean Corpuscular Hgb Conc 32.9 g/dL (32.0-36.0); Mean Corpuscular Volume 85.8 fL (80.0-100.0); Mean Platelet Volume 9.9 fL (9.4-12.4); Monocytes # (auto) 1.13 K/uL (0.24-0.82); Monocytes % (auto) 7.3 %; Neutrophils # (auto) 13.19 K/uL (1.4-6.5); Neutrophils % (auto) 84.7 %; Platelet Count 161 K/uL (130-400); RDW Coefficient of Variation 13.8 % (11.5-14.5); RDW Standard Deviation 43.1 fL (36.4-46.3); Red Blood Count 3.44 M/uL (4.63-6.08); White Blood Count 15.57 K/ul (4.8-10.8)
[2021-12-02 07:01] LABS: BUN Creatinine Ratio 20.8 (10-20); Calcium 8.3 mg/dl (8.5-10.1); Creatinine Clr Calc Pharmacy 22.2 ml/min; Est GFR (African American) 14.9 ml/min; Est GFR (Non-African American) 12.9 ml/min; Potassium 5.1 mmol/L (3.5-5.1)
[2021-12-02 07:47] LABS: Troponin I High Sensitivity 1387.5 pg/ml (0-20)
[2021-12-02] MEDS: CLOPIDOGREL BISULFATE 75 MG TAB PO SCH (07:54)
[2021-12-02] MEDS: ASPIRIN 81 MG ECTAB PO SCH (07:55)
[2021-12-02] MEDS: DOXYCYCLINE HYCLATE 100 MG CAP PO SCH ×2 (07:55→19:33)
[2021-12-02] MEDS ORDERED: ALBUMIN 25% 100 mL 25 GM/100 ML VIAL IV ONE (08:00)
[2021-12-02] MEDS: LANTUS PER UNIT CHARGE SQ SCH ×2 (08:01→20:53)
--- NOTE | 2021-12-02 08:26 | Ultrasound Report ---
US venous doppler LE BI CLINICAL HISTORY: leg swelling TECHNIQUE: Bilateral lower extremity real-time compression venous ultrasound with Color Doppler imagi ng. Utilizing real-time ultrasonic imaging multiple real time high-resolution ultrasonic images with compression and noncompression maneuvers of the deep venous system in addition to color doppler imagi ng were performed from the common femoral vein through the proximal calf veins. COMPARISON: None available at the time of this dictation. FINDINGS: Currently there is normal compressibility of the deep venous system from the common femoral vein thro ugh the proximal calf veins. Subcutaneous edema is noted in the bilateral calf. Incidental note is m jay of right inguinal nodes with preserved fatty kirstin measuring up to 2.7 x 1.5 x 2.2 cm. Impression: No evidence of deep venous thrombus. ACT 112: Negative or not required by law. Electronically signed by: Emeka Hebert M.D. 12/02/2021 8:25 AM
[2021-12-02] MEDS ORDERED: amLODIPine BESYLATE 5 MG TAB PO SCH (09:00)
[2021-12-02 09:03] LABS: Partial Thromboplastin Ratio 1.2; Partial Thromboplastin Time 33.6 Seconds (21.0-31.0)
--- NOTE | 2021-12-02 11:07 | Cardiology Consultation ---
Date of Consultation December 02, 2021 Assessment & Plan (1) Acute hypoxemic respiratory failure: (2) Acute on chronic renal failure: (3) Ischemic cardiomyopathy: (4) Heart failure, systolic, with acute decompensation: (5) Heart failure, diastolic, with acute decompensation: (6) Peripheral edema: (7) ASCVD (arteriosclerotic cardiovascular disease): (8) Dyslipidemia, goal LDL below 70: (9) Hypertension: Plan Complex 71-year-old male admitted with sepsis secondary to bilateral lower extremity cellulitis complicated by acute on chronic renal dysfunction as well as multifactorial fluid overload (cellulitis, acute decompensated systolic and diastolic congestive heart failure, medications (amlodipine, gabapentin)). Elevated high-sensitivity troponin I is in the absence of angina symptoms, with echocardiographic findings as below. Cellulitis as per Hospitalist Diuretics deferred to Nephrology. Continue medical management of the ASCVD. Continue aspirin and clopidogrel without interruption. Continue evidence-based beta-vandana therapy, metoprolol succinate. Reduce amlodipine dosing to aid chronic fluid retention issues Add long-acting nitrates followed by hydralazine as alternative therapy in a patient with reduced ejection fraction unable to tolerate THELMA/AR B/mineralocorticoid receptor antagonist Sildenafil discontinued Resume statin when able Supervising Physician Co-Signing Physician Notes Patient seen and examined with Joe Duran PA-C. Agree with findings and assessment as above. Medication recommendations as above. History of Present Illness Reason for Consultation: CHF Requesting Physician: David Attending Physician: Lisset History of Present Illness 71-year-old male who presented to [facility] ER via EMS on December 01, 2021 due to fevers, chills, and weakness starting on Tuesday, after falling to the ground early Tuesday morning. Temperature 39.4 C on presentation. Patient admitted with a working diagnosis of severe sepsis secondary to bilateral lower extremity cellulitis. Duplex showed no evidence of DVT. White blood cell count was 18.43 K/ul. Mild hypoxemia noted, improving with supplemental oxygen. EKG revealed sinus rhythm at 94 bpm with sinus arrhythmia, first-degree AV block, left axis deviation, right bundle branch block, old inferior infarct. High-sensitivity troponin elevated at 1586.8 then 1387.5 pg/ml. Creatinine on admission was 4.01. Atorvastatin held secondary to concern for rhabdomyolysis. Cardiology consultation requested due to lower extremity peripheral edema, history of cardiorenal syndrome, elevated high- sensitivity troponin Patient denies chest pain, angina, palpitations, worsening shortness of breath, change to his chronic cough, worsening orthopnea (chronically sleeps upright), or PND. Patient feels that his lower extremity edema is at baseline. No headaches or unilateral complaints to suggest TIA/CVA. No dizziness. No amaurosis fugax. No syncope. No melena or hematochezia. Patient intermittently noncompliant with medications Past Medical and Surgical History: ASCVD December 2019 NSTEMI December 25, 2019 cardiac catheterization with multivessel coronary artery disease - 30% distal LM stenosis, large LCx with 99% ostial stenosis, diffusely diseased LAD, 100% RCA with left to right collaterals Patient felt to be in excessive risk for CABG, undergoing high risk PCI, receiving drug-eluting stents from the left main into the left circumflex, from the left main into the LAD, and in the mid LAD. 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 Mother at 80, complications of an abdominal surgery Social History: Non-smoker. No significant alcohol. Lives alone. Complete Review of Systems: Constitutional: + Fevers. + Chills. HEENT: No amaurosis fugax. Pulmonary: No history of sleep apnea, r testing for sleep apnea. No history of PE. Plmonar Cardiac: See above. GI/Abd: No dysphagia. No melena or hematochezia. GI: Constipation from oxycodone, aided by as needed Miralax. Denies liver issues. CKD followed by nephrology. Hematologic: No abnormal bleeding. Musculoskeletal: Diffuse arthritic pain. Skin: No rash. Neurologic: Denies history of TIA or CVA. Denies history of seizure. Male : Erectile dysfunction, without recent use of sildenafil. Endocrine: Type 2 diabetes mellitus. Complete review of system is otherwise as stated above, negative, noncontributory. Allergies Allergy/AdvReac Type Severity Reaction Status Date / Time losartan Allergy Diarrhea Unverified 12/01/21 21:45 lisinopril AdvReac Severe Cough Verified 12/01/21 21:45 Home Medications Medication Instructions Recorded Confirmed Type amlodipine 10 mg tablet 10 mg PO QAM 06/17/21 12/01/21 History atorvastatin 80 mg tablet 80 mg PO QAM 06/17/21 12/01/21 History clopidogrel 75 mg tablet 75 mg PO QAM 06/17/21 12/01/21 History furosemide 40 mg tablet 40 mg PO UD 06/17/21 12/01/21 History gabapentin 300 mg capsule 300 mg PO TID 06/17/21 12/01/21 History insulin NPH isoph U-100 human 100 100 unit subcut UD 06/17/21 12/01/21 History unit/mL subcutaneous suspension (Novolin N NPH U-100 Insulin isophane) insulin regular human 100 unit/mL 20 unit subcut AC 06/17/21 12/01/21 History injection solution (Novolin R Regular U-100 Insulin) metoprolol succinate 50 mg 50 mg PO QPM 06/17/21 12/01/21 History tablet,extended release 24 hr sildenafil 50 mg tablet 50 mg PO DAILY PRN Erectile 06/17/21 12/01/21 History Dysfunction aspirin 81 mg tablet,delayed 81 mg PO QAM 12/01/21 12/01/21 History release cholecalciferol (vitamin D3) 25 75 mcg PO DAILY 12/01/21 12/01/21 History mcg (1,000 unit) tablet (Vitamin D3) oxycodone 5 mg tablet 5 mg PO HS PRN Pain, Severe 12/01/21 12/01/21 History Patient History Medical History Cerebrovascular disease stroke 2013 CKD (chronic kidney disease), stage IV Diabetes mellitus type 2 with complications Diabetic neuropathy Dyslipidemia Hypertension Hypertensive heart disease Ischemic cardiomyopathy EF 35-40% Kidney stone Morbid obesity Surgical History H/O knee surgery History of tonsillectomy S/P surgical manipulation of ankle joint Stented coronary artery JOAO placement to the Circumflex, Proximal LAD and mid LAD with a ACCOUNTING OFFICE MANAGER of his RCA Social History Smoking Status: Never smoker Second Hand Exposure: No; Hx Alcohol Use: No Hx Substance Use: No Preferred Language: Slovenian Communication Ability: Effective 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 NAD. Elevated BMI. HENT: Normocephalic. Atraumatic. Eyes: PER. Conjunctiva pink, sclera clear. Neck: Thick, without JVD. No carotid bruits. Heart: RRR. No murmur. Lungs: Clear to auscultation. Abdomen: +BS. Soft. Nontender. No masses or organomegaly. Extremities: Mild bilateral erythema. 2-3+ chronic brawny indurated edema. No clubbing. No cyanosis. Limited neurological examination is without focal deficits. Pulses: radial=2/4, posterior tibial=1/4. Results & Data ([facility]) Vital Signs (Past 12 Hours) Vital Signs Temp Pulse Pulse Resp BP BP Pulse Ox 12/02/21 10:36 37.2 C 82 18 120/64 88 L 12/02/21 07:42 37.6 C H 83 18 86 L 12/02/21 03:23 37.8 C H 84 22 143/81 H 90 12/02/21 01:13 95 H 12/02/21 00:44 12/02/21 00:41 12/02/21 00:34 36.8 C 100 H 22 146/80 H 94 12/02/21 00:13 36.7 C 92 H 18 129/88 92 Pulse Ox O2 Del Method O2 Del Method 12/02/21 10:36 Room Air 12/02/21 07:42 Room Air 12/02/21 03:23 Room Air 12/02/21 01:13 12/02/21 00:44 Room Air 12/02/21 00:41 93 Room Air 12/02/21 00:34 Room Air 12/02/21 00:13 Room Air Laboratory Results Cardiac Enzymes 12/01/21 12/02/21 Range/Units 18:47 06:01 AST 22 (13-39) U/L Troponin I High Sens 1586.8 H* 1387.5 H* (0-20) pg/ml Coagulation 12/01/21 12/02/21 Range/Units 18:47 07:42 PT 12.7 H (9.0-12.0) Seconds APTT 33.6 H (21.0-31.0) Seconds CBC 12/01/21 12/02/21 Range/Units 18:47 06:01 WBC 18.43 H 15.57 H (4.8-10.8) K/ul RBC 3.59 L 3.44 L (4.63-6.08) M/uL Hgb 10.3 L 9.7 L (14.0-18.0) g/dl Hct 31.1 L 29.5 L (40.1-51.0) % Plt Count 191 161 (130-400) K/uL Neut # (Auto) 15.95 H 13.19 H (1.4-6.5) K/uL Lymph # (Auto) 0.85 L 1.05 L (1.2-3.4) K/uL [place] # (Auto) 1.46 H 1.13 H (0.24-0.82) K/uL Eos # (Auto) 0.00 0.00 (0-0.50) K/uL Baso # (Auto) 0.04 0.05 (0-0.2) K/uL Comprehensive Metabolic Panel 12/01/21 12/02/21 Range/Units 18:47 06:01 Sodium 131 L 132 L (136-145) mmol/L Potassium 5.1 5.1 (3.5-5.1) mmol/L Chloride 101 102 (98-107) mmol/L Carbon Dioxide 18 L 20 L (21-32) mmol/L BUN 84 H 90 H (6-23) mg/dl Creatinine 4.01 H 4.32 H D (0.6-1.4) mg/dl Glucose 222 H 203 H (70-99(Fasting)) mg/dl Calcium 8.5 8.3 L (8.5-10.1) mg/dl AST 22 (13-39) U/L ALT 14 (7-52) U/L Alkaline Phosphatase 112 H (34-104) U/L Total Protein 7.5 (6.0-8.3) gm/dl Albumin 3.9 (3.4-5.0) gm/dl Intake and Output 12/01/21 12/02/21 12/02/21 22:59 06:59 14:59 Intake Total 100 / 1410 1310 / 1410 100 / 100 Output Total 200 / 200 Balance 100 / 1210 1110 / 1210 100 / 100 Intake: IV 100 / 1410 1310 / 1410 100 / 100 ALBUMIN 25% 100 mL 25 gm In 100 100 / 100 100 / 100 ml @ 50 mls/hr IV ONE ONE Rx#: [id number] Acetaminophen 1,000 mg In 100 100 / 100 ml @ 400 mls/hr IV NOW STA Rx#: [id number] Doxycycline Hyclate 100 mg In 110 / 110 Dextrose 5% 100 ml @ 50 mls/hr IV NOW STA Rx#:[id number] Magnesium Sulfate / D5w 1 gm In 100 / 100 100 ml @ 50 mls/hr IV ONE ONE Rx#:[id number] Sodium Chloride 0.9% 1000ML 1, 1000 / 1000 000 ml @ 125 mls/hr IV [facility] Rx#:[id number] Output: Urine 200 / 200 Other: Weight 155.8 kg 148 kg Weight Measurement Method Built in [facility] Built in [facility] Diagnostic Findings January 06, 2022 cardiac catheterization revealed severe left main and 3 vessel coronary artery disease. Status post PCI x 3 (Distal LM to LCX, LM to LAD, mid LAD) with drug eluting stens. Mid LCX with a 40% moderate non obstructive stenosis December 02, 2021 TTE Interpretation Summary ([facility], Dr. Abarca): Normal LV chamber size. Moderate concentric LVH. Mildly reduced LV systolic function, ejection fraction 45 to 50%. Abnormal septal wall motion consistent with conduction delay and moderate hypokinesis of the apex, otherwise, normal wall motion. Grade 1 diastolic dysfunction. Moderately calcified aortic valve with mild aortic stenosis. Mild mitral regurgitation. Mild tricuspid regurgitation. Mild enlargement of the aortic root measuring 4.3 cm.
[2021-12-02 12:41] LABS: Appearance Urine Turbid (Clear); Bilirubin Urine Negative (Negative); Blood Urine 2+ (Negative); Color Urine Yellow; Glucose Urine UA Negative (Negative); Ketones Urine Negative (Negative); Leukocyte Esterase Urine 2+ (Negative); Nitrite Urine Negative (Negative); Protein Urine 3+ (Negative); RBC Urine Automated 0-4 /hpf (0-4); Specific Gravity Urine 1.016 (1.000-1.030); Urobilinogen Urine Negative (Negative); WBC Urine Automated >30 /hpf (0-5)
--- NOTE | 2021-12-02 12:53 | Hospitalist Progress Note ---
Date of Service December 02, 2021 Assessment & Plan (1) Acute hypoxemic respiratory failure: Plan: Severe sepsis SIRS plus GRIFFIN on CKD Secondary to bilateral LE cellulitis Leucocytosis. Elevated procal Other possibilities include UTI UA is suggestive of UTI XR did not show opacities Patient is currently on cefepime and doxycycline Fever is resolved and reports feeling better Will continue and follow up cultures Doppler negative for DVT Acute on chronic systolic heart failure Possible cardiorenal syndrome History of medication noncompliance Acute on chronic kidney disease Elevated trop likely due to decompensated heart failure and GRIFFIN on CKD. No angina. ?Demand ischemia Cardiology recs appreciated Nephrology consulted. Diuretics per Behavior Therapist Monitor renal function Provided education about need for med adherence Monitor I/O, daily weight. Patient not interested in bladder scan for now. TTE noted EF 45-50%, abnormal septal wall motion consistent with conduction delay and moderate hypokinesis of apex, otherwise normal wall motion, Mild /MR/TR CAD status post stent/CVA Valvular heart disease (mild /MR/TR) DM2 insulin requiring, suboptimal control as of recent hemoglobin A1c of 9.3 M arch 2021 Chronic anemia Hb is 9.7 today Monitor Anxiety/mood disorder DVT ppx- hep sq Admission and Anticipated Discharge Date Admission Date: December 01, 2021 Subjective 71-year-old man with history of chronic systolic heart failure, CAD status post stents, valvular heart disease, CVA, hypertension, DM type II, CKD, chronic anemia who presented for feeling unwell and fever for the past 2 days. Patient seen and examined. Reports fever has resolved. Reported weakness at home which is improving. He also acknowledged about 20 pound weight gain over the past month Has leg swelling. Reports chronic intermittent dry cough unchanged. Reports chronic dyspnea on exertion. Denies any chest pain, palpitations Denies any dysuria, frequency, urgency Denies any nausea, vomiting, abdominal pain, diarrhea Reports increase redness in legs recently but could not provide history as regards duration/onset. Review of Systems Review of Systems: All systems reviewed & are unremarkable except as noted in Subjective Physical Exam Constitutional: + well hydrated and + obese; no acute distress Eyes: PERRL, conjunctivae normal, anicteric sclerae ENMT: external ear and nose normal, oropharynx normal Respiratory: Normal respiration Diminished breath sounds. No crackles Cardiovascular: Rate/Rhythm: regular rate and regular rhythm S1 S2 Gastrointestinal (Abdomen): normal bowel sounds, soft, nontender, no hepatosplenomegaly Musculoskeletal: Bilateral pedal edema Bilateral anterior leg erythema (L>R), nontender Neurologic: PERRL, EOMI, accommodation nl, no face palsy, no dysarthria Psychiatric: A+Ox3, euthymic affect Results & Data Results & Data ([facility]) Vital Signs (Past 12 Hours) Vital Signs Temp Pulse Pulse Resp BP Pulse Ox O2 Del Method 12/02/21 08:00 87 12/02/21 08:00 Room Air 12/02/21 10:36 37.2 C 82 18 120/64 88 L Room Air 12/02/21 07:42 37.6 C H 83 18 86 L Room Air 12/02/21 03:23 37.8 C H 84 22 143/81 H 90 Room Air 12/02/21 01:13 95 H Laboratory Results Abnormal lab results 12/01/21 12/01/21 12/01/21 Range/Units 18:47 18:47 18:47 WBC 18.43 H (4.8-10.8) K/ul RBC 3.59 L (4.63-6.08) M/uL Hgb 10.3 L (14.0-18.0) g/dl Hct 31.1 L (40.1-51.0) % Neut # (Auto) 15.95 H (1.4-6.5) K/uL Lymph # (Auto) 0.85 L (1.2-3.4) K/uL [place] # (Auto) 1.46 H (0.24-0.82) K/uL Immature Gran # (Auto) 0.13 H (0.00-0.02) K/uL PT 12.7 H (9.0-12.0) Seconds INR 1.2 H (0.9-1.1) APTT (21.0-31.0) Seconds Sodium (136-145) mmol/L Carbon Dioxide (21-32) mmol/L Anion Gap (3-11) BUN (6-23) mg/dl Creatinine (0.6-1.4) mg/dl BUN/Creatinine Ratio (10-20) Glucose (70-99(Fasting)) mg/dl POC Glucose (70-99) mg/dl Calcium (8.5-10.1) mg/dl Alkaline Phosphatase (34-104) U/L Total Creatine Kinase (30-223) U/L Troponin I High Sens (0-20) pg/ml Procalcitonin 5.64 H (0-0.5) ng/ml Urine Appearance (Clear) Urine Protein (Negative) Urine Blood (Negative) Ur Leukocyte Esterase (Negative) Urine WBC (Auto) (0-5) /hpf U Hyaline Cast (Auto) (0-5) /lpf U Epithel Cells (Auto) (0-5) /lpf Urine Bacteria (Auto) (Negative) Amorphous Sediment (None Prsent) Granular Casts (0) /lpf Urine Mucus (None Prsent) 12/01/21 12/01/21 12/02/21 Range/Units 18:47 18:47 06:01 WBC 15.57 H (4.8-10.8) K/ul RBC 3.44 L (4.63-6.08) M/uL Hgb 9.7 L (14.0-18.0) g/dl Hct 29.5 L (40.1-51.0) % Neut # (Auto) 13.19 H (1.4-6.5) K/uL Lymph # (Auto) 1.05 L (1.2-3.4) K/uL [place] # (Auto) 1.13 H (0.24-0.82) K/uL Immature Gran # (Auto) 0.15 H (0.00-0.02) K/uL PT (9.0-12.0) Seconds INR (0.9-1.1) APTT (21.0-31.0) Seconds Sodium 131 L (136-145) mmol/L Carbon Dioxide 18 L (21-32) mmol/L Anion Gap 12 H (3-11) BUN 84 H (6-23) mg/dl Creatinine 4.01 H (0.6-1.4) mg/dl BUN/Creatinine Ratio 20.9 H (10-20) Glucose 222 H (70-99(Fasting)) mg/dl POC Glucose (70-99) mg/dl Calcium (8.5-10.1) mg/dl Alkaline Phosphatase 112 H (34-104) U/L Total Creatine Kinase 713 H (30-223) U/L Troponin I High Sens 1586.8 H* (0-20) pg/ml Procalcitonin (0-0.5) ng/ml Urine Appearance (Clear) Urine Protein (Negative) Urine Blood (Negative) Ur Leukocyte Esterase (Negative) Urine WBC (Auto) (0-5) /hpf U Hyaline Cast (Auto) (0-5) /lpf U Epithel Cells (Auto) (0-5) /lpf Urine Bacteria (Auto) (Negative) Amorphous Sediment (None Prsent) Granular Casts (0) /lpf Urine Mucus (None Prsent) 12/02/21 12/02/21 12/02/21 Range/Units 06:01 07:33 07:42 WBC (4.8-10.8) K/ul RBC (4.63-6.08) M/uL Hgb (14.0-18.0) g/dl Hct (40.1-51.0) % Neut # (Auto) (1.4-6.5) K/uL Lymph # (Auto) (1.2-3.4) K/uL [place] # (Auto) (0.24-0.82) K/uL Immature Gran # (Auto) (0.00-0.02) K/uL PT (9.0-12.0) Seconds INR (0.9-1.1) APTT 33.6 H (21.0-31.0) Seconds Sodium 132 L (136-145) mmol/L Carbon Dioxide 20 L (21-32) mmol/L Anion Gap (3-11) BUN 90 H (6-23) mg/dl Creatinine 4.32 H D (0.6-1.4) mg/dl BUN/Creatinine Ratio 20.8 H (10-20) Glucose 203 H (70-99(Fasting)) mg/dl POC Glucose 217 H (70-99) mg/dl Calcium 8.3 L (8.5-10.1) mg/dl Alkaline Phosphatase (34-104) U/L Total Creatine Kinase 1371 H (30-223) U/L Troponin I High Sens 1387.5 H* (0-20) pg/ml Procalcitonin (0-0.5) ng/ml Urine Appearance (Clear) Urine Protein (Negative) Urine Blood (Negative) Ur Leukocyte Esterase (Negative) Urine WBC (Auto) (0-5) /hpf U Hyaline Cast (Auto) (0-5) /lpf U Epithel Cells (Auto) (0-5) /lpf Urine Bacteria (Auto) (Negative) Amorphous Sediment (None Prsent) Granular Casts (0) /lpf Urine Mucus (None Prsent) 12/02/21 12/02/21 Range/Units 11:25 11:31 WBC (4.8-10.8) K/ul RBC (4.63-6.08) M/uL Hgb (14.0-18.0) g/dl Hct (40.1-51.0) % Neut # (Auto) (1.4-6.5) K/uL Lymph # (Auto) (1.2-3.4) K/uL [place] # (Auto) (0.24-0.82) K/uL Immature Gran # (Auto) (0.00-0.02) K/uL PT (9.0-12.0) Seconds INR (0.9-1.1) APTT (21.0-31.0) Seconds Sodium (136-145) mmol/L Carbon Dioxide (21-32) mmol/L Anion Gap (3-11) BUN (6-23) mg/dl Creatinine (0.6-1.4) mg/dl BUN/Creatinine Ratio (10-20) Glucose (70-99(Fasting)) mg/dl POC Glucose 219 H (70-99) mg/dl Calcium (8.5-10.1) mg/dl Alkaline Phosphatase (34-104) U/L Total Creatine Kinase (30-223) U/L Troponin I High Sens (0-20) pg/ml Procalcitonin (0-0.5) ng/ml Urine Appearance Turbid A (Clear) Urine Protein 3+ H (Negative) Urine Blood 2+ H (Negative) Ur Leukocyte Esterase 2+ H (Negative) Urine WBC (Auto) >30 H (0-5) /hpf U Hyaline Cast (Auto) 10-30 H (0-5) /lpf U Epithel Cells (Auto) 10-20 H (0-5) /lpf Urine Bacteria (Auto) 1+ H (Negative) Amorphous Sediment Present A (None Prsent) Granular Casts 1-5 H (0) /lpf Urine Mucus Present A (None Prsent)
[2021-12-02 13:09] LABS: Mucus Urine Present (None Prsent)
[2021-12-02 13:15] LABS: Bacteria Urine Automated 1+ (Negative)
[2021-12-02 13:16] LABS: Amorphous Sediment Urine Present (None Prsent)
--- NOTE | 2021-12-02 15:10 | Nephrology Consultation ---
Date of Consultation December 02, 2021 Assessment & Plan (1) Acute on chronic renal failure: Acute on advanced progressive chronic renal insufficiency in a patient with obstructive uropathy in past 6 mos, longstanding uncontrolled volume overload issues, sepsis likely from cellulitis, CK levels and history consistent with possible rhabdomyolysis, medication/care nonadherence, baseline nephrotic range proteinuria. unable to access most recent baseline creatinine at this time d/t connectivity issues from [facility] [place] [facility] [place] >fluid overload is most pressing concern; not responding to lasix and will change to bumex > 2 mg IV x 1 at 1530; then another 2 mg this evening ordered; in AM start 2 mg bumex IV bid17 >fluid limit 1.5L daily and <2 gm daily Na -daily standing weight qAM >obtain renal u/s to eval for recurrent/ongoing R hydronephrosis (hospitalist to order) -daily bmp -trend CK (ordered for am) > his labs are not particularly c/w rhabdo, at least not with a florid case, at this time -no indication for urgent dialysis at this time and not clear he will do dialysis if need arises Care coordinated w/ cardiology and hospitalist teams. History of Present Illness Reason for Consultation: GRIFFIN on CKD Requesting Physician: Dr Hernandez Attending Physician: Charley Darling MD History of Present Illness 71 y/o M whom I follow in CKD clinic was admitted overnight for management of sepsis from BLE cellulitis (presenting temp 39.4) and with volume overload. 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 Pt w/ hx of nonadherence to medication recs or self care at times: He stopped his lasix prior to admission for at least a week d/t nocturia. He was admitted here June 2021 for GRIFFIN / hyperkalemia in setting of obstructive uropathy from a R renal stone. He had a R ureteral stent removed a fter June admission; concerns from urologist at cystoscopy for that that he might have stone present still but pt asked for stent removal and no further interventions. Plan was for repeat renal u/s in September to reassess for hydronephrosis but this was not done. Pt endorses depression though does claim this does not interfere w/ his care at this time. He is refusing bladder scan and further labs currently. He tells me no more labs b/c "you're just throwing noodles at a wall to see what will st ick." He endorses a 20 lb wt gain in the past 3-4 weeks and with this worsening edema with emergence of cellulitis. He also tells me he opted to stop weighing himself b/c "he didn't want bad news." He fell 2 days back at home and was unable to get up. Tells me he was down a few hours; also had F to 102 that day. EMS recommended ER eval but pt refused. Denies sob. No n/v/d. Denies dyspnea or cough. No new/worrisome voiding symptoms or flank pain reported. Pt received 140 mg lasix dosing w/ only 200 mL reported UOP. though has since voided 400 mL more. Cardiology saw the patient and is adjusting medications to optimize therapy for reduced EF in setting of no RAAS blockade and lowering CCB dose d/t edema. The pt is receiving cefepime and doxycycline to manage his infection and has defervesced; blood and urine cxs are pending. Question of/concern for rhabdomyolysis w/ fall hx: CK was 730s on presentation, up to 1300s this am. Allergies Allergy/AdvReac Type Severity Reaction Status Date / Time losartan Allergy Diarrhea Unverified 12/01/21 21:45 lisinopril AdvReac Severe Cough Verified 12/01/21 21:45 Home Medications Medication Instructions Recorded Confirmed Type amlodipine 10 mg tablet 10 mg PO QAM 06/17/21 12/01/21 History atorvastatin 80 mg tablet 80 mg PO QAM 06/17/21 12/01/21 History clopidogrel 75 mg tablet 75 mg PO QAM 06/17/21 12/01/21 History furosemide 40 mg tablet 40 mg PO UD 06/17/21 12/01/21 History gabapentin 300 mg capsule 300 mg PO TID 06/17/21 12/01/21 History insulin NPH isoph U-100 human 100 100 unit subcut UD 06/17/21 12/01/21 History unit/mL subcutaneous suspension (Novolin N NPH U-100 Insulin isophane) insulin regular human 100 unit/mL 20 unit subcut AC 06/17/21 12/01/21 History injection solution (Novolin R Regular U-100 Insulin) metoprolol succinate 50 mg 50 mg PO QPM 06/17/21 12/01/21 History tablet,extended release 24 hr sildenafil 50 mg tablet 50 mg PO DAILY PRN Erectile 06/17/21 12/01/21 History Dysfunction aspirin 81 mg tablet,delayed 81 mg PO QAM 12/01/21 12/01/21 History release cholecalciferol (vitamin D3) 25 75 mcg PO DAILY 12/01/21 12/01/21 History mcg (1,000 unit) tablet (Vitamin D3) oxycodone 5 mg tablet 5 mg PO HS PRN Pain, Severe 12/01/21 12/01/21 History Patient History Medical History Cerebrovascular disease stroke 2013 CKD (chronic kidney disease), stage IV Diabetes mellitus type 2 with complications Diabetic neuropathy Dyslipidemia Hypertension Hypertensive heart disease Ischemic cardiomyopathy EF 35-40% Kidney stone Morbid obesity Surgical History H/O knee surgery History of tonsillectomy S/P surgical manipulation of ankle joint Stented coronary artery JOAO placement to the Circumflex, Proximal LAD and mid LAD with a CLINICAL SUPPORT NURSE of his RCA Social History Smoking Status: Never smoker Second Hand Exposure: No; Hx Alcohol Use: No Hx Substance Use: No Preferred Language: Montserratian Communication Ability: Effective 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 Beliefs That Will Affect Care: None marital status: Current Living Situation: Alone Current Living Situation Comment: alone in apartment building current occupational status: retired current occupation: Retired How many Children do You have: 3 Other Information That Helps Us Care for You: No Feels Safe at Home: Yes Safety Concerns: Feels Safe At This Time Assistive Devices: Cane and Scooter/Electric Scooter Review of Systems Review of Systems: All systems reviewed & are unremarkable except as noted in HPI & below Physical Exam Constitutional: well developed, well nourished, + morbidly obese and + edematous; no acute distress Eyes: EOM intact bilaterally ENMT: Ears: no external ear abnormality Nose: no external nose abnormality Mouth: + dry oral mucous membranes Neck: no nuchal rigidity Respiratory: + labored breathing (slight) and able to speak in complete sentences (but needs to pause between sentences) Auscultation: + diminished lung sounds Cardiovascular: Rate/Rhythm: regular rate and regular rhythm Extremities: + edema (2-3+) Gastrointestinal (Abdomen): Inspection/Auscultation: normal bowel sounds Percussion/Palpation: abdomen soft; abdomen nontender Musculoskeletal: Extremities: strength 5/5 throughout Skin: cellulitis BL pretibial Neurologic: madera, fluent speech, no tremor Psychiatric: Orientation: oriented x 3 Results & Data ([facility]) Vital Signs (Past 12 Hours) Vital Signs Temp Pulse Pulse Resp BP Pulse Ox O2 Del Method 12/02/21 08:00 87 12/02/21 08:00 Room Air 12/02/21 10:36 37.2 C 82 18 120/64 88 L Room Air 12/02/21 07:42 37.6 C H 83 18 86 L Room Air 12/02/21 03:23 37.8 C H 84 22 143/81 H 90 Room Air Laboratory Results 12/02/21 06:01 12/02/21 06:01 UA > turbid yellow urine 1016, 3+ protein 2+ blood, granular casts, 1+ bacteria et al Blood and urine cultures pending Diagnostic Findings CXR IMPRESSION: Cardiomegaly with pulmonary vascular congestion.
[2021-12-02] MEDS ORDERED: BUMETANIDE 2 MG in SYRINGE 0 ML IV ONE ×2 (15:28→20:00)
[2021-12-02] MEDS: CEFEPIME 1,000 MG in SYRINGE 0 ML IV SCH (19:33)
--- NOTE | 2021-12-02 22:15 | Electrocardiogram Report ---
Test Reason : Blood Pressure : / mmHG Vent. Rate : 094 BPM Atrial Rate : 094 BPM P-R Int : 264 ms QRS Dur : 160 ms QT Int : 378 ms P-R-T Axes : 024 -30 -06 degrees QTc Int : 472 ms Sinus rhythm with sinus arrhythmia with 1st degree A-V block Left axis deviation Right bundle branch block Inferior infarct (cited on or before 23-DEC-2019) Abnormal ECG When compared with ECG of 18-JUN-2021 09:37, No significant change Confirmed by Chun Fischer ([id number]) on 12/02/2021 10:15:41 PM Referred By: REFERRED SELF Confirmed By:Chun Fischer
[2021-12-03] MEDS: HEPARIN SOD 5,000 UNIT/0.5 ML VIAL SQ SCH ×3 (05:07→21:03)
[2021-12-03 06:16] LABS: Hematocrit (blood only) 28.3 % (40.1-51.0); Hemoglobin 9.4 g/dl (14.0-18.0); Mean Corpuscular Hemoglobin 28.4 pg (25.0-34.0); Mean Corpuscular Hgb Conc 33.2 g/dL (32.0-36.0); Mean Corpuscular Volume 85.5 fL (80.0-100.0); Mean Platelet Volume 9.9 fL (9.4-12.4); Platelet Count 139 K/uL (130-400); RDW Coefficient of Variation 13.6 % (11.5-14.5); RDW Standard Deviation 42.5 fL (36.4-46.3); Red Blood Count 3.31 M/uL (4.63-6.08)
[2021-12-03 06:46] LABS: BUN Creatinine Ratio 22.1 (10-20); Creatinine Clr Calc Pharmacy 19.8 ml/min; Est GFR (African American) 12.9 ml/min; Est GFR (Non-African American) 11.1 ml/min; Magnesium 1.8 mg/dl (1.7-2.4); Potassium 4.7 mmol/L (3.5-5.1)
[2021-12-03] MEDS: DOXYCYCLINE HYCLATE 100 MG CAP PO SCH ×2 (09:00→20:44)
[2021-12-03] MEDS: ISOSORBIDE MONO EXTENDED REL 30 MG TABCR PO SCH (09:00)
[2021-12-03] MEDS: ASPIRIN 81 MG ECTAB PO SCH (09:00)
[2021-12-03] MEDS: CLOPIDOGREL BISULFATE 75 MG TAB PO SCH (09:00)
[2021-12-03] MEDS: amLODIPine BESYLATE 5 MG TAB PO SCH (09:00)
[2021-12-03] MEDS: BUMETANIDE 2 MG in SYRINGE 0 ML IV SCH ×2 (09:01→17:16)
[2021-12-03] MEDS: LANTUS PER UNIT CHARGE SQ SCH ×2 (09:22→20:49)
[2021-12-03] MEDS: INSULIN ASPART PER UNIT SC SCH ×4 (09:23→20:49)
--- NOTE | 2021-12-03 09:56 | Cardiology Progress Note ---
Date of Service December 03, 2021 Assessment & Plan (1) Acute hypoxemic respiratory failure: (2) Acute on chronic renal failure: (3) Ischemic cardiomyopathy: (4) Heart failure, systolic, with acute decompensation: (5) Heart failure, diastolic, with acute decompensation: (6) Peripheral edema: (7) ASCVD (arteriosclerotic cardiovascular disease): (8) Dyslipidemia, goal LDL below 70: (9) Hypertension: Plan Complex 71-year-old male admitted with a working diagnosis of sepsis secondary to bilateral lower extremity cellulitis complicated by acute on chronic renal dysfunction as well as multifactorial fluid overload (cellulitis, renal dysfunction, medications (amlodipine, gabapentin), and ? diastolic/systolic heart failure). Elevated high-sensitivity troponin I is in the absence of angina symptoms, with echocardiographic findings as below. Cellulitis as per Hospitalist Diuretics deferred to Nephrology. Continue medical management of the ASCVD. Continue aspirin and clopidogrel without interruption noting the prior complex stenting in 2019. Continue evidence-based beta-vandana therapy, metoprolol succinate. Amlodipine dosing reduced to aid chronic fluid retention issues Sildenafil discontinued Long-acting nitrates added as alternative therapy in a patient with reduced ejection fraction unable to tolerate THELMA/ARB/mineralocorticoid receptor antagonist. Consider addition of hydralazine +/- further reduction/discontinuation of amlodipine. Resume statin when able Admission and Anticipated Discharge Date Admission Date: December 01, 2021 Supervising Physician Co-Signing Physician Notes Patient seen and examined with Joe Duran PA-C. Agree with findings and assessment as above. Medication recommendations as above. Subjective Patient seen and examined. Chart, medications, and telemetry reviewed. Patient sitting in the bedside chair. He describes his breathing is "still shallow." Notes little to no improvement in peripheral edema. No chest pain. No palpitations. No dizziness or near syncope. No melena or hematochezia. Cumulative I/O's + 2,009 mL's overall Weight 155.8 -> 148 -> 149.8 kg Continuous telemetry monitoring reveals sinus throughout, with a first-degree heart block. Heart rate predominantly in the 70s. December 02, 2021 TTE Interpretation Summary ([facility], Dr. Abarca): Normal LV chamber size with moderate concentric LVH. Mildly reduced LV systolic function, ejection fraction 45 to 50%. Abnormal septal wall motion consistent with conduction delay and moderate hypokinesis of the apex, otherwise, normal wall motion. Grade 1 diastolic dysfunction. Moderately calcified aortic valve with mild aortic stenosis. Mild mitral regurgitation. Mild tricuspid regurgitation. Mild enlargement of the aortic root measuring 4.3 cm. Physical Exam Physical Exam: General: A&Ox3. NAD. Elevated BMI. HENT: Normocephalic. Atraumatic. Eyes: PER. Conjunctiva pink, sclera clear. Neck: Thick, without JVD. No carotid bruits. Heart: RRR. No murmur. Lungs: Clear to auscultation. Abdomen: +BS. Soft. Nontender. No masses or organomegaly. Extremities: Mild bilateral erythema. 2-3+ chronic brawny indurated edema. No clubbing. No cyanosis. Limited neurological examination is without focal deficits. Pulses: radial=2/4, posterior tibial=1/4. Results & Data ([facility]) Vital Signs (Past 12 Hours) Vital Signs Temp Pulse Pulse Resp BP Pulse Ox O2 Del Method 12/03/21 07:28 37.1 C 65 18 120/67 96 Room Air 12/03/21 07:37 74 12/03/21 03:40 36.9 C 75 12 108/66 88 L Room Air 12/02/21 23:30 36.8 C 76 12 119/70 93 Room Air Laboratory Results CBC 12/03/21 Range/Units 05:55 WBC 10.50 (4.8-10.8) K/ul RBC 3.31 L (4.63-6.08) M/uL Hgb 9.4 L (14.0-18.0) g/dl Hct 28.3 L (40.1-51.0) % Plt Count 139 (130-400) K/uL Comprehensive Metabolic Panel 12/03/21 Range/Units 05:55 Sodium 130 L (136-145) mmol/L Potassium 4.7 (3.5-5.1) mmol/L Chloride 99 (98-107) mmol/L Carbon Dioxide 18 L (21-32) mmol/L BUN 108 H (6-23) mg/dl Creatinine 4.88 H* D (0.6-1.4) mg/dl Glucose 145 H (70-99(Fasting)) mg/dl Calcium 8.0 L (8.5-10.1) mg/dl Intake and Output 12/02/21 12/03/21 12/03/21 22:59 06:59 14:59 Intake Total 200 / 1400 600 / 1400 Output Total 201 / 601 Balance 200 / 799 399 / 799 Intake: Oral 200 / 1300 600 / 1300 Output: Urine 200 / 600 # Bowel Movements Other: Weight 148 kg 149.8 kg Weight Measurement Method Built in [facility]
--- NOTE | 2021-12-03 12:29 | Hospitalist Progress Note ---
Date of Service December 03, 2021 Assessment & Plan (1) Acute hypoxemic respiratory failure: Plan: Severe sepsis SIRS plus GRIFFIN on CKD Secondary to bilateral LE cellulitis On presentation he had leucocytosis and elevated procal Other possibilities include UTI UA is suggestive of UTI XR did not show opacities Patient is currently on cefepime and doxycycline Fever and leukocytosis are resolved Will continue and follow up cultures Doppler negative for DVT Acute on chronic systolic heart failure Possible cardiorenal syndrome History of medication noncompliance Acute on chronic kidney disease Elevated trop likely due to decompensated heart failure and GRIFFIN on CKD. No angina. ?Demand ischemia Cardiology recs appreciated Nephrology on board Discussed renal function trend with Digital Media Intern. Will continue diuretics and monitor renal function. If worsens, may need HD Renal USS noted Monitor I/O, daily weight. Patient not interested in bladder scan for now. TTE noted EF 45-50%, abnormal septal wall motion consistent with conduction delay and moderate hypokinesis of apex, otherwise normal wall motion, Mild /MR/TR CAD status post stent/CVA Valvular heart disease (mild /MR/TR) DM2 insulin requiring, suboptimal control as of recent hemoglobin A1c of 9.04 June 2021 Chronic anemia Hb is 9.4 today Monitor Anxiety/mood disorder DVT ppx- hep sq Admission and Anticipated Discharge Date Admission Date: December 01, 2021 Subjective 71-year-old man with history of chronic systolic heart failure, CAD status post stents, valvular heart disease, CVA, hypertension, DM type II, CKD, chronic anemia who presented for feeling unwell and fever for the past 2 days. Patient seen and examined. Denied fevers Reports chronic intermittent dry cough unchanged. Reports chronic dyspnea on exertion. Denies any chest pain, palpitations Denies any dysuria, frequency, urgency Denies any nausea, vomiting, abdominal pain, diarrhea Has leg erythema and tendernss Physical Exam Constitutional: + well hydrated and + obese; no acute distress Eyes: PERRL, conjunctivae normal, anicteric sclerae ENMT: external ear and nose normal, oropharynx normal Respiratory: normal respiratory effort, lungs clear to auscultation Cardiovascular: Rate/Rhythm: regular rate and regular rhythm S1 S2 Gastrointestinal (Abdomen): normal bowel sounds, soft, nontender, no hep atosplenomegaly Musculoskeletal: Bilateral pedal edema Bilateral anterior leg erythema (L>R), tender Neurologic: PERRL, EOMI, accommodation nl, no face palsy, no dysarthria Psychiatric: A+Ox3, euthymic affect Results & Data Results & Data ([facility]) Vital Signs (Past 12 Hours) Vital Signs Temp Pulse Pulse Resp BP Pulse Ox O2 Del Method 12/03/21 10:46 37 C 80 18 154/64 H 91 Room Air 12/03/21 07:28 37.1 C 65 18 120/67 96 Room Air 12/03/21 07:37 74 12/03/21 03:40 36.9 C 75 12 108/66 88 L Room Air Laboratory Results Abnormal lab results 12/02/21 12/03/21 12/03/21 Range/Units 20:12 05:55 05:55 RBC 3.31 L (4.63-6.08) M/uL Hgb 9.4 L (14.0-18.0) g/dl Hct 28.3 L (40.1-51.0) % Sodium 130 L (136-145) mmol/L Carbon Dioxide 18 L (21-32) mmol/L Anion Gap 13 H (3-11) BUN 108 H (6-23) mg/dl Creatinine 4.88 H* D (0.6-1.4) mg/dl BUN/Creatinine Ratio 22.1 H (10-20) Glucose 145 H (70-99(Fasting)) mg/dl POC Glucose 181 H (70-99) mg/dl Calcium 8.0 L (8.5-10.1) mg/dl Total Creatine Kinase 891 H (30-223) U/L Procalcitonin (0-0.5) ng/ml 12/03/21 12/03/21 12/03/21 Range/Units 05:55 07:21 11:25 RBC (4.63-6.08) M/uL Hgb (14.0-18.0) g/dl Hct (40.1-51.0) % Sodium (136-145) mmol/L Carbon Dioxide (21-32) mmol/L Anion Gap (3-11) BUN (6-23) mg/dl Creatinine (0.6-1.4) mg/dl BUN/Creatinine Ratio (10-20) Glucose (70-99(Fasting)) mg/dl POC Glucose 153 H 199 H (70-99) mg/dl Calcium (8.5-10.1) mg/dl Total Creatine Kinase (30-223) U/L Procalcitonin 25.49 H (0-0.5) ng/ml 12/03/21 Range/Units 15:59 RBC (4.63-6.08) M/uL Hgb (14.0-18.0) g/dl Hct (40.1-51.0) % Sodium (136-145) mmol/L Carbon Dioxide (21-32) mmol/L Anion Gap (3-11) BUN (6-23) mg/dl Creatinine (0.6-1.4) mg/dl BUN/Creatinine Ratio (10-20) Glucose (70-99(Fasting)) mg/dl POC Glucose 170 H (70-99) mg/dl Calcium (8.5-10.1) mg/dl Total Creatine Kinase (30-223) U/L Procalcitonin (0-0.5) ng/ml
[2021-12-03] MEDS: oxyCODONE HCL IR 5 MG TAB (IMMEDIATE RELEASE) PO PRN (13:47)
--- NOTE | 2021-12-03 15:22 | Ultrasound Report ---
ULTRASOUND KIDNEYS AND BLADDER CLINICAL HISTORY: Acute on chronic renal insufficiency. COMPARISON STUDY: Abdominal CT dated 06/17/2021. Renal ultrasound dated 06/18/2021. TECHNIQUE: Real-time, grayscale, and color flow sonography of the kidneys and bladder is performed. I mages are reviewed in the transverse and longitudinal planes. FINDINGS: Kidneys: The kidneys demonstrate mild cortical atrophy. Echotexture is normal. The right kidney measu res 11.0 cm in length and the left kidney measures 12.1 cm in length. There is no hydronephrosis. No shadowing renal calculi are identified. A cystic focus in the right kidney measured 3.1 cm. There is no sonographic evidence of contour deforming renal mass lesion. No perinephric fluid is identified. Bladder: The partially decompressed bladder is grossly unremarkable. Ureteral jets were not seen. IMPRESSION: 1. The kidneys demonstrate cortical atrophy and are without hydronephrosis. 2. The bladder is decompressed and grossly unremarkable ACT 112: Negative or not required by law. Electronically signed by: Ashvin Carter M.D. 12/03/2021 3:21 PM
--- NOTE | 2021-12-03 17:34 | Nephrology Progress Note ---
Date of Service December 03, 2021 Assessment & Plan (1) Acute on chronic renal failure: Plan: Acute on advanced progressive chronic renal insufficiency in a patient with obstructive uropathy in past 6 mos, longstanding uncontrolled volume overload issues, sepsis likely from cellulitis, CK levels and history consistent with possible rhabdomyolysis, medication/care nonadherence, baseline nephrotic range proteinuria. unable to access most recent baseline creatinine at this time d/t connectivity issues [facility] [place] [facility] [place] >fluid overload is most pressing concern; continue bumex 2 mg IV bid17 >fluid limit 1.5L daily and <2 gm daily Na -daily standing weight qAM > 151.7 at 1300 on standing scale 12/03 >unremarkable renal u/s w/ resolution of spring R hydronephrosis -daily bmp -offered him emotional support and spent > 15 minutes talking to him about goals of care > he will do dialysis if he has to -no indication for urgent dialysis at this time -f/u pending cxs > responding to abtx but no source found yet Admission and Anticipated Discharge Date Admission Date: December 01, 2021 Subjective tearful today about his health situation; no sob > its better; ongoing edema; occasional R facial pain anterior to ear Review of Systems Review of Systems: All systems reviewed & are unremarkable except as noted in Subjective Physical Exam Constitutional: well developed, well nourished, + morbidly obese and + edematous; no acute distress Eyes: EOM intact bilaterally ENMT: Ears: no external ear abnormality Nose: no external nose abnormality Mouth: + dry oral mucous membranes Neck: no nuchal rigidity Respiratory: normal respiratory effort, + labored breathing (slight) and able to speak in complete sentences (but needs to pause between sentences) Auscultation: + diminished lung sounds Cardiovascular: Rate/Rhythm: regular rate and regular rhythm Extremities: + edema (2-3+) Gastrointestinal (Abdomen): Inspection/Auscultation: normal bowel sounds Percussion/Palpation: abdomen soft; abdomen nontender Musculoskeletal: Extremities: strength 5/5 throughout Skin: no rashes, warm and dry Psychiatric: Orientation: oriented x 3 Results & Data ([facility]) Vital Signs (Past 12 Hours) Vital Signs Temp Pulse Pulse Resp BP Pulse Ox O2 Del Method 12/03/21 15:36 36.5 C 79 22 103/59 L 90 Nasal Cannula 12/03/21 07:30 Room Air 12/03/21 10:46 37 C 80 18 154/64 H 91 Room Air 12/03/21 07:28 37.1 C 65 18 120/67 96 Room Air 12/03/21 07:37 74 O2 Flow Rate 12/03/21 15:36 2 12/03/21 07:30 12/03/21 10:46 12/03/21 07:28 12/03/21 07:37 Laboratory Results 12/03/21 05:55 12/03/21 05:55
[2021-12-03] MEDS: CEFEPIME 1,000 MG in SYRINGE 0 ML IV SCH (20:43)
[2021-12-03] MEDS: METOPROLOL SUCC 50MG EXT REL TAB PO SCH (20:44)
[2021-12-04] MEDS: HEPARIN SOD 5,000 UNIT/0.5 ML VIAL SQ SCH ×3 (05:08→21:11)
[2021-12-04 06:10] LABS: Hematocrit (blood only) 27.3 % (40.1-51.0); Hemoglobin 9.2 g/dl (14.0-18.0); Mean Corpuscular Hemoglobin 28.6 pg (25.0-34.0); Mean Corpuscular Hgb Conc 33.7 g/dL (32.0-36.0); Mean Corpuscular Volume 84.8 fL (80.0-100.0); Mean Platelet Volume 9.9 fL (9.4-12.4); Platelet Count 134 K/uL (130-400); RDW Coefficient of Variation 13.2 % (11.5-14.5); RDW Standard Deviation 41.5 fL (36.4-46.3); Red Blood Count 3.22 M/uL (4.63-6.08); White Blood Count 6.72 K/ul (4.8-10.8)
[2021-12-04 06:33] LABS: Alanine Aminotransferase 36 U/L (7-52); Albumin Level 3.6 gm/dl (3.4-5.0); Alkaline Phosphatase 99 U/L (34-104); Anion Gap 12 (3-11); Aspartate Aminotransferase 47 U/L (13-39); BUN Creatinine Ratio 23.6 (10-20); Bilirubin,Total 0.7 mg/dl (0.2-1.0); Blood Urea Nitrogen 121 mg/dl (6-23); Calcium 7.8 mg/dl (8.5-10.1); Carbon Dioxide 18 mmol/L (21-32); Chloride 99 mmol/L (98-107); Est GFR (African American) 12.1 ml/min; Est GFR (Non-African American) 10.5 ml/min; Glucose 140 mg/dl (70-99(Fasting)); Potassium 4.6 mmol/L (3.5-5.1); Sodium 129 mmol/L (136-145); Total Protein 6.8 gm/dl (6.0-8.3)
[2021-12-04] MEDS: DOXYCYCLINE HYCLATE 100 MG CAP PO SCH ×2 (08:05→21:08)
[2021-12-04] MEDS: CLOPIDOGREL BISULFATE 75 MG TAB PO SCH (08:05)
[2021-12-04] MEDS: ISOSORBIDE MONO EXTENDED REL 30 MG TABCR PO SCH (08:05)
[2021-12-04] MEDS: amLODIPine BESYLATE 5 MG TAB PO SCH (08:06)
[2021-12-04] MEDS: ASPIRIN 81 MG ECTAB PO SCH (08:06)
[2021-12-04] MEDS: BUMETANIDE 2 MG in SYRINGE 0 ML IV SCH ×2 (08:07→17:44)
[2021-12-04] MEDS: INSULIN ASPART PER UNIT SC SCH ×4 (08:25→21:17)
[2021-12-04] MEDS: LANTUS PER UNIT CHARGE SQ SCH ×2 (08:26→21:18)
--- NOTE | 2021-12-04 08:49 | Nephrology Progress Note ---
Date of Service December 04, 2021 Assessment & Plan (1) Acute on chronic renal failure: Plan: Acute on advanced progressive chronic renal insufficiency in a patient with obstructive uropathy in past 6 mos, longstanding uncontrolled volume overload issues, sepsis likely from cellulitis, CK levels and history consistent with possible rhabdomyolysis, medication/care nonadherence, baseline nephrotic range proteinuria. unable to access most recent baseline creatinine at this time d/t connectivity issues from [facility] to [facility]. >fluid overload is most pressing concern; continue bumex 2 mg IV bid17 >fluid limit 1.5L daily and <2 gm daily Na -daily standing weight qAM > 151.7 at 1300 on standing scale 12/03; 151.3 9/ AM >unremarkable renal u/s w/ resolution of spring hydronephrosis -daily bmp -needs to start dialysis in my opinion for fluid management next 24 hrs > d/w patient indications/risks/benefits/alternatives and that this will likely be chronic; consent on chart; critical care assistance w/ temp cath placement appreciated; will consult vascular for TDC placement on 12/08; will plan 3 IP dialysis txs between now and 12/08 >>>pls ask case mgt to arrange for admission to [facility] in center HD; pt aware/agrees -first 2hr tx today -f/u pending cxs (NGTD at 48 hrs) > responding to abtx but no source found yet Admission and Anticipated Discharge Date Admission Date: December 01, 2021 Subjective no acute interval events. poor sleep; denies worsening sob and feels breathing baseline, thinks he's doing better b/c edema a bit less on legs (wt unchanged); ongoing R shoulder pain; denies urinary flow concerns/LUTS Review of Systems Review of Systems: All systems reviewed & are unremarkable except as noted in Subjective Physical Exam Constitutional: well developed, well nourished, + morbidly obese and + edematous; no acute distress Eyes: EOM intact bilaterally ENMT: Ears: no external ear abnormality Nose: no external nose abnormality Mouth: + dry oral mucous membranes Neck: no nuchal rigidity Respiratory: normal respiratory effort, + labored breathing (slight) and able to speak in complete sentences (but needs to pause between sentences) Auscultation: + diminished lung sounds and + crackles (bibasilar) Cardiovascular: Rate/Rhythm: regular rate and regular rhythm Extremities: + edema (3+) Gastrointestinal (Abdomen): Inspection/Auscultation: normal bowel sounds Percussion/Palpation: abdomen soft; abdomen nontender Musculoskeletal: Extremities: strength 5/5 throughout maneuvers w/ effort for exam Skin: no rashes, warm and dry + erythema (BL pretibial) Neurologic: madera, fluent speech, no tremor Psychiatric: Orientation: oriented x 3 Results & Data ([facility]) Vital Signs (Past 12 Hours) Vital Signs Temp Pulse Pulse Resp BP BP Pulse Ox 12/04/21 07:31 37.0 C 68 18 133/75 92 12/04/21 07:00 72 12/04/21 01:00 80 12/04/21 04:00 36.7 C 68 18 124/72 92 12/03/21 21:00 12/03/21 23:48 80 12/03/21 23:00 36.7 C 74 20 124/72 90 O2 Del Method 12/04/21 07:31 Room Air 12/04/21 07:00 12/04/21 01:00 12/04/21 04:00 Room Air 12/03/21 21:00 Room Air 12/03/21 23:48 12/03/21 23:00 Room Air Laboratory Results 12/04/21 05:55 12/04/21 05:55
--- NOTE | 2021-12-04 09:42 | Cardiology Progress Note ---
Date of Service December 04, 2021 Assessment & Plan (1) Acute hypoxemic respiratory failure: (2) Acute on chronic renal failure: (3) Ischemic cardiomyopathy: (4) Heart failure, systolic, with acute decompensation: (5) Heart failure, diastolic, with acute decompensation: (6) Peripheral edema: (7) ASCVD (arteriosclerotic cardiovascular disease): (8) Dyslipidemia, goal LDL below 70: (9) Hypertension: Plan Complex 71-year-old male admitted with a working diagnosis of sepsis secondary to bilateral lower extremity cellulitis complicated by acute on chronic renal dysfunction as well as multifactorial fluid overload (cellulitis, renal dysfunction, medications (amlodipine, gabapentin), and diastolic/systolic heart failure). Elevated high-sensitivity troponin I is in the absence of angina symptoms, with echocardiographic findings as below. Cellulitis as per Hospitalist Diuretics deferred to Nephrology. Continue medical management of the ASCVD. Continue aspirin and clopidogrel without interruption noting the prior complex stenting in 2019. Continue evidence-based beta-vandana therapy, metoprolol succinate. Amlodipine dosing reduced to aid chronic fluid retention issues this admission. Sildenafil discontinued Long-acting nitrates added as alternative therapy in a patient with reduced ejection fraction unable to tolerate THELMA/ARB/mineralocorticoid receptor antagonist. Consider addition of hydralazine +/- further reduction/discontinuation of amlodipine. Resume statin when able Please contact with any issues over the weekend. Admission and Anticipated Discharge Date Admission Date: December 01, 2021 Supervising Physician Co-Signing Physician Notes Patient seen and examined with Joe Duran PA-C. Agree with findings and assessment as above. Medication recommendations as above. Subjective Patient seen and examined. Chart, medications, and telemetry reviewed. Feels as though urine output has increased. Stable dyspnea. No chest pain. No palpitations. No dizziness or near syncope. No melena or hematochezia. Cumulative I/O's + 1,809 mL's overall Creatinine 5.12 mg/dL. Sodium 129 mmol/L. Continuous telemetry monitoring reveals sinus with a first-degree heart block, rates in the 70's and 80's. December 02, 2021 TTE Interpretation Summary ([facility], Dr. Abarca): Normal LV chamber size with moderate concentric LVH. Mildly reduced LV systolic function, ejection fraction 45 to 50%. Abnormal septal wall motion consistent with conduction delay and moderate hypokinesis of the apex, otherwise, normal wall motion. Grade 1 diastolic dysfunction. Moderately calcified aortic valve with mild aortic stenosis. Mild mitral regurgitation. Mild tricuspid regurgitation. Mild enlargement of the aortic root measuring 4.3 cm. Physical Exam Physical Exam: General: A&Ox3. NAD. Elevated BMI. HENT: Normocephalic. Atraumatic. Eyes: PER. Conjunctiva pink, sclera clear. Neck: Thick, without JVD. No carotid bruits. Heart: RRR. No murmur. Lungs: Clear to auscultation. Abdomen: +BS. Soft. Nontender. No masses or organomegaly. Extremities: 2-3+ edema. No clubbing. No cyanosis. Limited neurological examination is without focal deficits. Pulses: radial=2/4, posterior tibial=1/4. Results & Data ([facility]) Vital Signs (Past 12 Hours) Vital Signs Temp Pulse Pulse Resp BP BP Pulse Ox 12/04/21 07:31 37.0 C 68 18 133/75 92 12/04/21 07:00 72 12/04/21 01:00 80 12/04/21 04:00 36.7 C 68 18 124/72 92 12/03/21 23:48 80 12/03/21 23:00 36.7 C 74 20 124/72 90 O2 Del Method 12/04/21 07:31 Room Air 12/04/21 07:00 12/04/21 01:00 12/04/21 04:00 Room Air 12/03/21 23:48 12/03/21 23:00 Room Air Laboratory Results Cardiac Enzymes 12/04/21 Range/Units 05:55 AST 47 H (13-39) U/L CBC 12/04/21 Range/Units 05:55 WBC 6.72 (4.8-10.8) K/ul RBC 3.22 L (4.63-6.08) M/uL Hgb 9.2 L (14.0-18.0) g/dl Hct 27.3 L (40.1-51.0) % Plt Count 134 (130-400) K/uL Comprehensive Metabolic Panel 12/04/21 Range/Units 05:55 Sodium 129 L (136-145) mmol/L Potassium 4.6 (3.5-5.1) mmol/L Chloride 99 (98-107) mmol/L Carbon Dioxide 18 L (21-32) mmol/L BUN 121 H (6-23) mg/dl Creatinine 5.12 H* (0.6-1.4) mg/dl Glucose 140 H (70-99(Fasting)) mg/dl Calcium 7.8 L (8.5-10.1) mg/dl Direct Bilirubin TNP AST 47 H (13-39) U/L ALT 36 (7-52) U/L Alkaline Phosphatase 99 (34-104) U/L Total Protein 6.8 (6.0-8.3) gm/dl Albumin 3.6 (3.4-5.0) gm/dl Intake and Output 12/03/21 12/04/21 12/04/21 22:59 06:59 14:59 Output Total 200 / 200 Balance -200 / -200 Output: Urine 200 / 200 Other: Weight 151.3 kg Weight Measurement Method Standing Scale
--- NOTE | 2021-12-04 09:54 | Hospitalist Progress Note ---
Date of Service December 04, 2021 Assessment & Plan (1) Acute hypoxemic respiratory failure: Plan: Severe sepsis SIRS plus GRIFFIN on CKD Secondary to bilateral LE cellulitis On presentation he had leucocytosis and elevated procal Urine cultures - probable contamination with skin lonnie XR did not show opacities Patient is currently on cefepime and doxycycline Fever and leukocytosis are resolved Deescalate to doxycycline only to complete 7 days treatment Doppler negative for DVT Acute on chronic systolic heart failure Possible cardiorenal syndrome History of medication noncompliance Acute on chronic kidney disease Elevated trop likely due to decompensated heart failure and GRIFFIN on CKD. No angina. ?Demand ischemia Cardiology recs appreciated Nephrology on board Renal function continue to worsen Discussed with patient that he may need HD Discussed with Paperback Machine Operator who recommend placement of HD catheter and initiation of HD. Patient seem to be reluctant about this for now Will continue to outreach counselor him about this Monitor I/O, daily weight. TTE noted EF 45-50%, abnormal septal wall motion consistent with conduction delay and moderate hypokinesis of apex, otherwise normal wall motion, Mild /MR/TR CAD status post stent/CVA Valvular heart disease (mild /MR/TR) DM2 insulin requiring, suboptimal control as of recent hemoglobin A1c of 9.04 June 2021 Chronic anemia Hb is 9.2 today Monitor Anxiety/mood disorder Patient has a flat affect and appear to be in a depressed mood He does denied depression/SI/HI earlier this AM I spent sometime providing some counseling Later this evening, RN reported patient's son noted patient reports being depressed and making comments about suicide I went and reevaluated patient. He acknowledged depression and suicidal ideation. Reported he feels like 'shooting himself' Considering these, psych was consulted. Suicidal precautions 1 to 1 for now He stated he may be open to HD tomorrow if labs continue to show worsening renal function Son was at bedside and involved in our conversation DVT ppx- hep sq Admission and Anticipated Discharge Date Admission Date: December 01, 2021 Subjective 71-year-old man with history of chronic systolic heart failure, CAD status post stents, valvular heart disease, CVA, hypertension, DM type II, CKD, chronic anemia who presented for feeling unwell and fever for the past 2 days. Patient seen and examined. Reports chronic intermittent dry cough unchanged. Reports chronic dyspnea on exertion. Denied any headache. Reported he had some discomfort behind right ear yesterday but resolved Denies any fevers, chills Denies any chest pain, palpitations Denies any dysuria, frequency, urgency Denies any nausea, vomiting, abdominal pain, diarrhea Still has leg erythema and tenderness Physical Exam Constitutional: + well hydrated and + obese; no acute distress Eyes: PERRL, conjunctivae normal, anicteric sclerae ENMT: external ear and nose normal, oropharynx normal Respiratory: normal respiratory effort, lungs clear to auscultation Cardiovascular: Rate/Rhythm: regular rate and regular rhythm S1 S2 Gastrointestinal (Abdomen): normal bowel sounds, soft, nontender, no hepatosplenomegaly Musculoskeletal: Bilateral pedal edema Bilateral anterior leg erythema, tender Neurologic: PERRL, EOMI, accommodation nl, no face palsy, no dysarthria Psychiatric: Orientation: alert and oriented x 3 Affect: + flat affect Results & Data Results & Data ([facility]) Vital Signs (Past 12 Hours) Vital Signs Temp Pulse Pulse Resp BP BP Pulse Ox 12/04/21 07:31 37.0 C 68 18 133/75 92 12/04/21 07:00 72 12/04/21 01:00 80 12/04/21 04:00 36.7 C 68 18 124/72 92 12/03/21 23:48 80 12/03/21 23:00 36.7 C 74 20 124/72 90 O2 Del Method 12/04/21 07:31 Room Air 12/04/21 07:00 12/04/21 01:00 12/04/21 04:00 Room Air 12/03/21 23:48 12/03/21 23:00 Room Air Laboratory Results Abnormal lab results 12/03/21 12/03/21 12/04/21 Range/Units 15:59 20:08 05:55 RBC 3.22 L (4.63-6.08) M/uL Hgb 9.2 L (14.0-18.0) g/dl Hct 27.3 L (40.1-51.0) % Sodium (136-145) mmol/L Carbon Dioxide (21-32) mmol/L Anion Gap (3-11) BUN (6-23) mg/dl Creatinine (0.6-1.4) mg/dl BUN/Creatinine Ratio (10-20) Glucose (70-99(Fasting)) mg/dl POC Glucose 170 H 213 H (70-99) mg/dl Calcium (8.5-10.1) mg/dl AST (13-39) U/L 12/04/21 12/04/21 Range/Units 05:55 11:31 RBC (4.63-6.08) M/uL Hgb (14.0-18.0) g/dl Hct (40.1-51.0) % Sodium 129 L (136-145) mmol/L Carbon Dioxide 18 L (21-32) mmol/L Anion Gap 12 H (3-11) BUN 121 H (6-23) mg/dl Creatinine 5.12 H* (0.6-1.4) mg/dl BUN/Creatinine Ratio 23.6 H (10-20) Glucose 140 H (70-99(Fasting)) mg/dl POC Glucose 187 H (70-99) mg/dl Calcium 7.8 L (8.5-10.1) mg/dl AST 47 H (13-39) U/L
[2021-12-04] MEDS ORDERED: SODIUM CHLORIDE 0.9% 1000ML 1,000 ML IV PRN (10:30)
--- NOTE | 2021-12-04 11:45 | Critical Care Consultation ---
Date of Consultation December 04, 2021 Assessment & Plan (1) Acute on chronic renal failure: Plan Impression: 71-year-old male with multiple medical issues, now with acute on chronic renal insufficiency. We are consulted for venous access for dialysis but the patient declines currently. Recommendation: 1. Events were transmitted to the patient's banking management consulting manager. Will defer additio nal evaluation management to his hospitalist and nephrology team. 2. If the patient changes his mind, please let us know and we will try and accommodate line placement although over the weekend, may be somewhat more complicated. Critical care services will sign off. Please contact us if we can be of additional assistance History of Present Illness Attending Physician: Charley Darling MD History of Present Illness Asked by nephrology to assist in placement of IV access for hemodialysis in this patient. History is obtained from discussion with the banking management consulting manager as well as review of electronic medical record and interviewed the patient. Patient is a 71-year-old male with chronic systolic heart failure and progressive proteinuric chronic kidney disease was admitted with progressive renal insufficiency and fluid overload. He has been managed by cardiology, nephrology, and his hospitalist service but unfortunately had a serum creatinine increasing. He was felt to require dialysis. Vascular surgery was not available and critical care services were consulted to see whether or not we could provide temporary hemodialysis access for this patient. He is on Plavix. I presented to the room and the patient asked to review. I informed him that the nephrology service asked us to evaluate the patient for dialysis access. He replied, "not today". He states he wants more time to think about it. I advised him that we may have limited availability over the weekend and he states that is fine. He again reiterated he does not want to pursue any procedures for now. Allergies Allergy/AdvReac Type Severity Reaction Status Date / Time losartan Allergy Diarrhea Unverified 12/01/21 21:45 lisinopril AdvReac Severe Cough Verified 12/01/21 21:45 Home Medications Medication Instructions Recorded Confirmed Type amlodipine 10 mg tablet 10 mg PO QAM 06/17/21 12/01/21 History atorvastatin 80 mg tablet 80 mg PO QAM 06/17/21 12/01/21 History clopidogrel 75 mg tablet 75 mg PO QAM 06/17/21 12/01/21 History furosemide 40 mg tablet 40 mg PO UD 06/17/21 12/01/21 History gabapentin 300 mg capsule 300 mg PO TID 06/17/21 12/01/21 History insulin NPH isoph U-100 human 100 100 unit subcut UD 06/17/21 12/01/21 History unit/mL subcutaneous suspension (Novolin N NPH U-100 Insulin isophane) insulin regular human 100 unit/mL 20 unit subcut AC 06/17/21 12/01/21 History injection solution (Novolin R Regular U-100 Insulin) metoprolol succinate 50 mg 50 mg PO QPM 06/17/21 12/01/21 History tablet,extended release 24 hr sildenafil 50 mg tablet 50 mg PO DAILY PRN Erectile 06/17/21 12/01/21 History Dysfunction aspirin 81 mg tablet,delayed 81 mg PO QAM 12/01/21 12/01/21 History release cholecalciferol (vitamin D3) 25 75 mcg PO DAILY 12/01/21 12/01/21 History mcg (1,000 unit) tablet (Vitamin D3) oxycodone 5 mg tablet 5 mg PO HS PRN Pain, Severe 12/01/21 12/01/21 History Patient History Medical History Cerebrovascular disease stroke 2013 CKD (chronic kidney disease), stage IV Diabetes mellitus type 2 with complications Diabetic neuropathy Dyslipidemia Hypertension Hypertensive heart disease Ischemic cardiomyopathy EF 35-40% Kidney stone Morbid obesity Surgical History H/O knee surgery History of tonsillectomy S/P surgical manipulation of ankle joint Stented coronary artery JOAO placement to the Circumflex, Proximal LAD and mid LAD with a FORM SETTER/DRIVER of his RCA Social History Smoking Status: Never smoker Second Hand Exposure: No; Hx Alcohol Use: No Hx Substance Use: No Preferred Language: Portuguese Communication Ability: Effective Absorption Operator Required: No Beliefs That Will Affect Care: None marital status: Current Living Situation: Alone Current Living Situation Comment: alone in apartment building current occupational status: retired current occupation: Retired How many Children do You have: 3 Other Information That Helps Us Care for You: No Feels Safe at Home: Yes Safety Concerns: Feels Safe At This Time Assistive Devices: Cane and Scooter/Electric Scooter Review of Systems Review of Systems: Per hospitalist note Physical Exam Physical Exam: General: A&Ox3. NAD. Elevated BMI. HENT: Normocephalic. Atraumatic. Eyes: PER. Conjunctiva pink, sclera clear. Neck: Thick, without JVD. No carotid bruits. Heart: RRR. No murmur. Lungs: Clear to auscultation. Abdomen: +BS. Soft. Nontender. No masses or organomegaly. Extremities: 2-3+ edema. No clubbing. No cyanosis. Limited neurological examination is without focal deficits. Pulses: radial=2/4, posterior tibial=1/4. Results & Data Results & Data ([facility]) Vital Signs (Past 12 Hours) Vital Signs Temp Pulse Pulse Resp BP BP Pulse Ox 12/04/21 08:30 12/04/21 07:31 37.0 C 68 18 133/75 92 12/04/21 07:00 72 12/04/21 01:00 80 12/04/21 04:00 36.7 C 68 18 124/72 92 12/03/21 23:48 80 O2 Del Method 12/04/21 08:30 Room Air, Nasal Cannula 12/04/21 07:31 Room Air 12/04/21 07:00 12/04/21 01:00 12/04/21 04:00 Room Air 12/03/21 23:48 Laboratory Results 12/04/21 05:55 12/04/21 05:55 Diagnostic Findings Chest x-ray from this admission independently reviewed. Cardiomegaly. Low lung volumes. No airspace opacity or infiltrate. Coding Level of Care Code 44812 Inpt Consult Level 3 Diagnoses Acute on chronic renal failure N17.9; N18.9
[2021-12-04] MEDS: oxyCODONE HCL IR 5 MG TAB (IMMEDIATE RELEASE) PO PRN (19:39)
[2021-12-04] MEDS: METOPROLOL SUCC 50MG EXT REL TAB PO SCH (21:08)
[2021-12-05] MEDS: HEPARIN SOD 5,000 UNIT/0.5 ML VIAL SQ SCH ×3 (05:35→21:04)
[2021-12-05 07:10] LABS: Hematocrit (blood only) 29.1 % (40.1-51.0); Hemoglobin 9.8 g/dl (14.0-18.0); Mean Corpuscular Hgb Conc 33.7 g/dL (32.0-36.0); Mean Corpuscular Volume 83.1 fL (80.0-100.0); Mean Platelet Volume 10.2 fL (9.4-12.4); Platelet Count 177 K/uL (130-400); RDW Coefficient of Variation 13.3 % (11.5-14.5); RDW Standard Deviation 40.2 fL (36.4-46.3); White Blood Count 7.47 K/ul (4.8-10.8)
[2021-12-05 07:37] LABS: Calcium 8.1 mg/dl (8.5-10.1); Creatinine Clr Calc Pharmacy 20.3 ml/min; Est GFR (African American) 13.1 ml/min; Est GFR (Non-African American) 11.3 ml/min; Potassium 4.4 mmol/L (3.5-5.1)
[2021-12-05 08:03] LABS: Estimated Average Glucose 197 mg/dl; Hemoglobin A1C 8.5 % (4.5-5.6)
[2021-12-05] MEDS: BUMETANIDE 2 MG in SYRINGE 0 ML IV SCH ×2 (08:17→17:52)
[2021-12-05] MEDS: DOXYCYCLINE HYCLATE 100 MG CAP PO SCH ×2 (08:22→20:09)
[2021-12-05] MEDS: amLODIPine BESYLATE 5 MG TAB PO SCH (08:23)
[2021-12-05] MEDS: ISOSORBIDE MONO EXTENDED REL 30 MG TABCR PO SCH (08:23)
[2021-12-05] MEDS: CLOPIDOGREL BISULFATE 75 MG TAB PO SCH (08:23)
[2021-12-05] MEDS: ASPIRIN 81 MG ECTAB PO SCH (08:23)
[2021-12-05 08:36] LABS: BUN Creatinine Ratio 27.5 (10-20)
[2021-12-05] MEDS: INSULIN ASPART PER UNIT SC SCH ×4 (08:37→20:17)
[2021-12-05] MEDS: LANTUS PER UNIT CHARGE SQ SCH ×2 (08:38→20:18)
--- NOTE | 2021-12-05 10:31 | Nephrology Progress Note ---
Date of Service December 05, 2021 Assessment & Plan (1) Acute on chronic renal failure: Plan: Acute on advanced progressive chronic renal insufficiency in a patient with obstructive uropathy in past 6 mos, longstanding uncontrolled volume overload issues, sepsis likely from cellulitis, CK levels and history consistent with possible rhabdomyolysis, medication/care nonadherence, baseline nephrotic range proteinuria. unable to access most recent baseline creatinine at this time d/t connectivity issues from [facility] to [facility]. >fluid overload is most pressing concern; continue bumex 2 mg IV bid >fluid limit 1.5L daily and <2 gm daily Na -daily standing weight qAM >unremarkable renal u/s w/ resolution of spring hydronephrosis -daily bmp >renal function have oartially improved. -needs to start dialysis for fluid management next 24 hrs > d/w patient indications/risks/benefits/alternatives and that this will likely be chronic; consent on chart; critical care assistance w/ temp cath placement appreciated but georgina refused the temporary catheter yesterday. - Today he asked about his SCr and was pleased that this has improved, and he is making more urine , HOwever explained to him that he will did dialysis for Volume optimization, He " will take a day at time and decide". - will consult vascular for TDC placement on 12/08 and plan 3 IP dialysis with temp line" if he agrees. >>>pls ask case mgt to arrange for admission to [facility] in center HD; pt aware/agrees Admission and Anticipated Discharge Date Admission Date: December 01, 2021 Subjective 71-year-old man with history of chronic systolic heart failure, CAD status post stents, valvular heart disease, CVA, hypertension, DM type II, CKD 4/5, chronic anemia. Sob better Has been making more urine. Still undecided about dialysis. Review of Systems Review of Systems: Mild distress 3+ pitting edema + Lymphedema+ Chronic static changes Results & Data ([facility]) Vital Signs (Past 12 Hours) Vital Signs Temp Pulse Pulse Resp BP BP Pulse Ox 12/05/21 08:00 36.7 C 68 18 145/72 H 93 12/05/21 07:21 68 12/05/21 02:53 36.4 C L 77 18 143/72 H 93 12/04/21 23:10 36.7 C 83 18 127/69 93 O2 Del Method 12/05/21 08:00 Room Air 12/05/21 07:21 12/05/21 02:53 12/04/21 23:10 Laboratory Results 12/05/21 06:36 12/05/21 06:36
--- NOTE | 2021-12-05 12:13 | Hospitalist Progress Note ---
Date of Service December 05, 2021 Assessment & Plan (1) Acute hypoxemic respiratory failure: Plan: Severe sepsis SIRS plus GRIFFIN on CKD Secondary to bilateral LE cellulitis On presentation he had leucocytosis and elevated procal Urine cultures - probable contamination with skin lonnie XR did not show opacities Fever and leukocytosis are resolved Continue doxycycline only to complete 7 days treatment Doppler negative for DVT Acute on chronic systolic heart failure Possible cardiorenal syndrome History of medication noncompliance Acute on chronic kidney disease Elevated trop likely due to decompensated heart failure and GRIFFIN on CKD. No angina. ?Demand ischemia Cardiology recs appreciated Nephrology on board Cr slightly improved today down to 4.79 from 5.12 yesterday. BUN still going up 121 to 131 . Bicarb Improved urine output of 2L in the past 24h Continue bumex Patient want to continue to defer HD for now Discussed with patient that he may need HD Monitor I/O, daily weight. TTE noted EF 45-50%, abnormal septal wall motion consistent with conduction delay and moderate hypokinesis of apex, otherwise normal wall motion, Mild /MR/TR CAD status post stent/CVA Valvular heart disease (mild /MR/TR) DM2 insulin requiring, suboptimal control as of recent hemoglobin A1c of 9.04 June 2021 Chronic anemia Hb is 9.8 today Monitor Anxiety/mood disorder Patient has a flat affect Had reported suicidal thoughts on evening of 12/04/21 Patient currently denies that. Psych evaluation appreciated Possible adjustment with depressed mood DVT ppx- hep sq Admission and Anticipated Discharge Date Admission Date: December 01, 2021 Subjective 71-year-old man with history of chronic systolic heart failure, CAD status post stents, valvular heart disease, CVA, hypertension, DM type II, CKD, chronic anemia who presented for feeling unwell and fever for the past 2 days. Patient seen and examined. Reports improvement in symptoms today Reports cough is improved Has chronic dyspnea on exertion Denied any headache. Denies any fevers, chills Denies any chest pain, palpitations Denies any dysuria, frequency, urgency Denies any nausea, vomiting, abdominal pain, diarrhea Reports feeling better today. Reports he is in better spirits. Denies any depression/SI/HI this AM Physical Exam Constitutional: + well hydrated and + obese; no acute distress Eyes: PERRL, conjunctivae normal, anicteric sclerae ENMT: external ear and nose normal, oropharynx normal Respiratory: normal respiratory effort, lungs clear to auscultation Cardiovascular: Rate/Rhythm: regular rate and regular rhythm S1 S2 Gastrointestinal (Abdomen): normal bowel sounds, soft, nontender, no hepatosplenomegaly Musculoskeletal: Bilateral pedal edema Bilateral anterior leg erythema. stasis changes Neurologic: PERRL, EOMI, accommodation nl, no face palsy, no dysarthria Psychiatric: Orientation: alert and oriented x 3 Results & Data Results & Data ([facility]) Vital Signs (Past 12 Hours) Vital Signs Temp Pulse Pulse Resp BP BP Pulse Ox 12/05/21 11:22 36.5 C 74 18 137/70 94 12/05/21 08:00 36.7 C 68 18 145/72 H 93 12/05/21 07:21 68 12/05/21 02:53 36.4 C L 77 18 143/72 H 93 O2 Del Method 12/05/21 11:22 Room Air 12/05/21 08:00 Room Air 12/05/21 07:21 12/05/21 02:53 Laboratory Results Abnormal lab results 12/04/21 12/04/21 12/04/21 Range/Units 06:00 16:22 21:08 RBC (4.63-6.08) M/uL Hgb (14.0-18.0) g/dl Hct (40.1-51.0) % Sodium (136-145) mmol/L Carbon Dioxide (21-32) mmol/L Anion Gap (3-11) BUN (6-23) mg/dl Creatinine (0.6-1.4) mg/dl BUN/Creatinine Ratio (10-20) Glucose (70-99(Fasting)) mg/dl POC Glucose 206 H 174 H (70-99) mg/dl Hemoglobin A1c (4.5-5.6) % Calcium (8.5-10.1) mg/dl Hep Bs Antibody, Quant <5 L (> OR = 10) mIU/mL 12/05/21 12/05/21 12/05/21 Range/Units 06:36 06:36 06:36 RBC 3.50 L (4.63-6.08) M/uL Hgb 9.8 L (14.0-18.0) g/dl Hct 29.1 L (40.1-51.0) % Sodium 131 L (136-145) mmol/L Carbon Dioxide 19 L (21-32) mmol/L Anion Gap 13 H (3-11) BUN 131 H (6-23) mg/dl Creatinine 4.79 H* D (0.6-1.4) mg/dl BUN/Creatinine Ratio 27.5 H (10-20) Glucose 186 H (70-99(Fasting)) mg/dl POC Glucose (70-99) mg/dl Hemoglobin A1c 8.5 H (4.5-5.6) % Calcium 8.1 L (8.5-10.1) mg/dl Hep Bs Antibody, Quant (> OR = 10) mIU/mL
--- NOTE | 2021-12-05 12:40 | Psychiatric Consultation ---
Date of Consultation December 05, 2021 Impression / Recommendations Impression This is a 71 yo with a history of complicated breavement admitted medically. Diagnostically consistent with adjustment disorder with depressed mood in the context of worsening medical problems from chronic conditions including CKD, hx CAD, history respiratory failure. Acute risk of self-harm is low given denial of SI, denies any current symptoms of depression, states that his previous statement was driven by frustration and to get needs met in terms of relaying his desire to sped up discharge from the hospital, future-oriented, no anhedonia-including interest in TV, and no prior attempts. Chronic risk is moderate to high based on multiple non-modifiable risk factors including age, gender, , chronic medical conditions, likely some antisocial traits based on his description of his issues with authority/self description of being "chauvinist", periods of impulsivity and poor judgment but also with no prior suicide attempts, supportive children and willingness to consider outpatient psychiatric services. Most significant modifiable risk factor for reducing acute and chronic risk of self-harm is his access to guns. Counseled on recommendation to remove these from the home though he is not interested nor willing for this and not agreeable to allowing us to discuss this with family. It is not felt the guns can be removed against his will as he is not felt to meet 302 criteria. At this time does not desire inpatient voluntary psychiatric treatment and not felt to meet 302 criteria as now denying SI, future-oriented, speaks to reasons for living, no anhedonia, endorses hopefulness, stable mood and willing to work on safety plan. Counseled on ways to reduce acute and chronic risk including engaging with outpatient providers, using safety plan/local crisis resources if needed, and utilizing supports. He remains undecided about dialysis but is considering it and discussing with providers and not seen as a sign of lack of decision making capacity nor lack of self-care/interest due to depression but rather hesitance due to his dislike of medical system/being a patient as requires him to give up some control. He is not interested in psychiatric medication at this time but understands this would an option in the future he is felt more depressed. He was agreeable to resources for further outpatient resources if his mood were to worsen again or if he were to develop SI again. (1) Adjustment disorder with depressed mood: (2) Sepsis: (3) CHF (congestive heart failure): (4) Acute on chronic renal failure: (5) ASCVD (arteriosclerotic cardiovascular disease): Plan -Discussed with hospitalist Dr. Umana and patient also denied SI with him today and reported improved mood -psychiatric liason provided resources for local mental health services including for outpatient therapy and provided with safety plan which he agrees to complete and psych liason will review this with him including reviewing again local crisis resources should SI occur again in the future -could consider SSRI or SNRI in the future if hyponatremia improves with ongoing management of CKD Risk Factors Assessment Male: Yes : Yes Do You Have Access To A Gun?: Yes (he has been counseled on risks of guns, he wants to keep them in the home) Health Problems: Yes Substance Use Disorders: No Previous Attempt: No Family History of Suicide: No Previous Psychiatric Hospitalization: No Hopelessness: No Protective Factors Assessment Stable Relationships: Yes Supportive Family: Yes Psych History Identifying Data 71 yo man with history of complicated bereavement admitted medically for hypoemia with sepsis. Psychiatry was consulted for risk assessment and depression. Chief Complaint "I'm watching this TV show I really like". History of Present Illness Jignesh was previously seen by our service in June due to complicated bereavement following the of his sister. During this hospitalization he reported SI with thoughts of shooting himself as well as depression to the hospitalist yesterday and his son was at bedside and reported that Jignesh has been depressed and at times makes statements of SI. He was seen by psych liason last night and reported SI with multiple plans and was intermittently tearful and scored moderate risk on suicide risk screening. He also demonstrated use of humor at times and noted desire to get better from his medical conditions and his dislike of being in the hospital and that this can cause him to be non-adherent with care at times. Later in the evening he became very frustrated with having a 1-on-1 threatening to refuse to engage with any medical care until 1-on-1 was removed. He was denying SI and told psych liason to "don't come back". Today he is watching TV and declines to turn the volume down to speak with me stating "I like this show and I want to watch it, you can come back later". When we reviewed that I was unable to return later he agreed to engage in some discussion with me. He adamantly denied SI and stated his mood was "good" and that "I feel very safe". Reviewed what had changed in regard to previous statements of SI and he noted that he doesn't like being in the hospital or being in pain but feels much better physically today and so this also improves his mood. Reviewed concern about safety regarding access to guns given his statement of SI and he stated that his statement was "not for real" and "just due to frustration with being here". He feels he is safe at home and agreed to work on safety plan. He was not interested in discussing specific outpatient referrals but agreeable to receiving information about this as Cymbalta was helpful in the past when he experienced depression and he would consider medication in the future if he became depressed again. He denied any symptoms of depression rather focused on desire to watch TV and be discharged to his home once medically stable. Declines to allow us to speak with his children. Past Psychiatric History Outpatient Services: none currently Previous Psych Admissions: none Do You Have Access To A Gun?: Yes (he has been counseled on risks of guns, he wants to keep them in the home) History of Previous Suicide Attempt: No Past Medication Trials: cymbalta Allergies Allergy/AdvReac Type Severity Reaction Status Date / Time losartan Allergy Diarrhea Unverified 12/01/21 21:45 lisinopril AdvReac Severe Cough Verified 12/01/21 21:45 Home Medications Medication Instructions Recorded Confirmed Type amlodipine 10 mg tablet 10 mg PO QAM 06/17/21 12/01/21 History atorvastatin 80 mg tablet 80 mg PO QAM 06/17/21 12/01/21 History clopidogrel 75 mg tablet 75 mg PO QAM 06/17/21 12/01/21 History furosemide 40 mg tablet 40 mg PO UD 06/17/21 12/01/21 History gabapentin 300 mg capsule 300 mg PO TID 06/17/21 12/01/21 History insulin NPH isoph U-100 human 100 100 unit subcut UD 06/17/21 12/01/21 History unit/mL subcutaneous suspension (Novolin N NPH U-100 Insulin isophane) insulin regular human 100 unit/mL 20 unit subcut AC 06/17/21 12/01/21 History injection solution (Novolin R Regular U-100 Insulin) metoprolol succinate 50 mg 50 mg PO QPM 06/17/21 12/01/21 History tablet,extended release 24 hr sildenafil 50 mg tablet 50 mg PO DAILY PRN Erectile 06/17/21 12/01/21 History Dysfunction aspirin 81 mg tablet,delayed 81 mg PO QAM 12/01/21 12/01/21 History release cholecalciferol (vitamin D3) 25 75 mcg PO DAILY 12/01/21 12/01/21 History mcg (1,000 unit) tablet (Vitamin D3) oxycodone 5 mg tablet 5 mg PO HS PRN Pain, Severe 12/01/21 12/01/21 History Family History no known hx of by suicide Substance Abuse History denies Personal History Living Arrangements: Home (alone) Highest Grade Completed: High School Graduate Marital Status: (x2) Number Of Children: 2-daughter [facility] and son in [place] Beliefs That Will Affect Care: None Patient History Medical History Cerebrovascular disease stroke 2013 CKD (chronic kidney disease), stage IV Diabetes mellitus type 2 with complications Diabetic neuropathy Dyslipidemia Hypertension Hypertensive heart disease Ischemic cardiomyopathy EF 35-40% Kidney stone Morbid obesity Surgical History H/O knee surgery History of tonsillectomy S/P surgical manipulation of ankle joint Stented coronary artery JOAO placement to the Circumflex, Proximal LAD and mid LAD 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 Social History Smoking Status: Never smoker Second Hand Exposure: No; Hx Alcohol Use: No Hx Substance Use: No Preferred Language: Guatemalan Communication Ability: Effective Automation Tender Required: No Beliefs That Will Affect Care: None marital status: Current Living Situation: Alone Current Living Situation Comment: alone in apartment building current occupational status: retired current occupation: Retired How many Children do You have: 3 Other Information That Helps Us Care for You: No Feels Safe at Home: Yes Safety Concerns: Feels Safe At This Time Assistive Devices: Cane and Scooter/Electric Scooter Physical Exam Psychiatric: Orientation: alert and oriented x 3 Apperance: appropriately dressed and appropriately groomed Eye Contact: good eye contact Motor Behavior: no abnormal motor movements Speech: normal rate/rhythm/volume of speech Affect: euthymic affect Mood: no depressed mood and no anxious mood Thought Process: linear/logical thought process Thought Content: reality based without delusions Suicidal Thoughts: denies suicidal thoughts Homicidal Thoughts: denies homicidal thoughts Hallucinations: no auditory hallucinations and no visual hallucinations Cognition: recent memory grossly intact, remote memory grossly intact, attention grossly intact and language grossly intact Estimated Intelligence: consistent with education level Insight: + fair insight Judgement: + limited judgement Vital Signs (Past 24 Hours): Last Vital Signs Temp 36.5 C 12/05/21 11:22 Pulse 74 12/05/21 11:22 Resp 18 12/05/21 11:22 BP 137/70 12/05/21 11:22 Pulse Ox 94 12/05/21 11:22 O2 Del Method 12/05/21 11:22 O2 Flow Rate 2 12/03/21 15:36 Review of Systems All systems reviewed & are unremarkable except as noted in HPI & below Results & Data ([facility]) Medications Administered Amlodipine Besylate (Amlodipine Besylate 5 Mg Tab) 5 mg PO [facility] Stop: 01/02/22 08:59 Last Admin: 12/05/21 08:23 Dose: 5 mg Documented By: Admin: 12/04/21 08:06 Dose: 5 mg Documented By: Admin: 12/03/21 09:00 Dose: 5 mg Documented By: Aspirin (Aspirin 81 Mg Ectab) 81 mg PO [facility] Stop: 01/01/22 08:59 Last Admin: 12/05/21 08:23 Dose: 81 mg Documented By: Admin: 12/04/21 08:06 Dose: 81 mg Documented By: Admin: 12/03/21 09:00 Dose: 81 mg Documented By: Admin: 12/02/21 07:55 Dose: 81 mg Documented By: MEERA Clopidogrel Bisulfate (Clopidogrel Bisulfate 75 Mg Tab) 75 mg PO [facility] Stop: 01/01/22 08:59 Last Admin: 12/05/21 08:23 Dose: 75 mg Documented By: Admin: 12/04/21 08:05 Dose: 75 mg Documented By: Admin: 12/03/21 09:00 Dose: 75 mg Documented By: Admin: 12/02/21 07:54 Dose: 75 mg Documented By: MEERA Doxycycline Hyclate (Doxycycline Hyclate 100 Mg Cap) 100 mg PO BID [facility] Stop: 12/09/21 08:59 Last Admin: 12/05/21 08:22 Dose: 100 mg Documented By: Admin: 12/04/21 21:08 Dose: 100 mg Documented By: Admin: 12/04/21 08:05 Dose: 100 mg Documented By: Admin: 12/03/21 20:44 Dose: 100 mg Documented By: Admin: 12/03/21 09:00 Dose: 100 mg Documented By: Admin: 12/02/21 19:33 Dose: 100 mg Documented By: Admin: 12/02/21 07:55 Dose: 100 mg Documented By: MEERA Heparin Sodium (Porcine) (Heparin Sod 5,000 Unit/0.5 Ml Vial) 5,000 units SQ Q8 JAYA Stop: 01/01/22 05:59 Last Admin: 12/05/21 05:35 Dose: 5,000 units Documented By: Admin: 12/04/21 21:11 Dose: 5,000 units Documented By: Admin: 12/04/21 14:25 Dose: Not Given Documented By: Admin: 12/04/21 05:08 Dose: 5,000 units Documented By: Admin: 12/03/21 21:03 Dose: 5,000 units Documented By: Admin: 12/03/21 13:48 Dose: 5,000 units Documented By: Admin: 12/03/21 05:07 Dose: 5,000 units Documented By: Admin: 12/02/21 20:53 Dose: 5,000 units Documented By: Admin: 12/02/21 12:27 Dose: 5,000 units Documented By: Admin: 12/02/21 05:55 Dose: 5,000 units Documented By: DMITRI Bumetanide 2 mg/ Syringe 8 mls @ 4 mls/min IV BID@0900,1700 JAYA Stop: 01/02/22 08:59 Last Admin: 12/05/21 08:17 Dose: 4 mls/min Documented By: Admin: 12/04/21 17:44 Dose: 4 mls/min Documented By: Admin: 12/04/21 08:07 Dose: 4 mls/min Documented By: Admin: 12/03/21 17:16 Dose: 4 mls/min Documented By: Admin: 12/03/21 09:01 Dose: 4 mls/min Documented By: Insulin Aspart (Insulin Aspart Per Unit) 0 units SC ACHS JAYA Stop: 01/01/22 01:14 Last Admin: 12/05/21 08:37 Dose: 4 units Documented By: Co-signed By: [place] Admin: 12/04/21 21:17 Dose: 2 units Documented By: ROGER Co-signed By: REMY Admin: 12/04/21 17:54 Dose: 6 units Documented By: Co-signed By: [place] Admin: 12/04/21 12:32 Dose: 2 units Documented By: Co-signed By: JENNIFER Admin: 12/04/21 08:25 Dose: 3 units Documented By: Co-signed By: [place] Admin: 12/03/21 20:49 Dose: 3 units Documented By: CF Co-signed By: LESLEY Admin: 12/03/21 17:34 Dose: 3 units Documented By: Co-signed By: IVETTE Admin: 12/03/21 12:38 Dose: 3 units Documented By: Co-signed By: IVETTE Admin: 12/03/21 09:23 Dose: 3 units Documented By: Co-signed By: IVETTE Admin: 12/02/21 20:53 Dose: 2 units Documented By: DMITRI Co-signed By: WEI Admin: 12/02/21 17:18 Dose: 4 units Documented By: PW Co-signed By: IVETTE Admin: 12/02/21 12:23 Dose: 6 units Documented By: MEERA Co-signed By: IVETTE Admin: 12/02/21 07:51 Dose: 9 units Documented By: MEERA Co-signed By: VALERI Admin: 12/02/21 01:32 Dose: Not Given Documented By: DMITRI Insulin Glargine (Lantus Per Unit Charge) 5 units SQ BID JAYA Stop: 01/01/22 08:59 Last Admin: 12/05/21 08:38 Dose: 5 units Documented By: Co-signed By: [place] Admin: 12/04/21 21:18 Dose: 5 units Documented By: ROGER Co-signed By: REMY Admin: 12/04/21 08:26 Dose: 5 units Documented By: Co-signed By: [place] Admin: 12/03/21 20:49 Dose: 5 units Documented By: JEREMY Co-signed By: ARR Admin: 12/03/21 09:22 Dose: 5 units Documented By: Co-signed By: IVETTE Admin: 12/02/21 20:53 Dose: 5 units Documented By: DMITRI Co-signed By: WEI Admin: 12/02/21 08:01 Dose: 5 units Documented By: MEERA Co-signed By: VALERI Isosorbide Mononitrate (Isosorbide Cocke Extended Rel 30 Mg Tabcr) 30 mg PO QAM JAYA Stop: 01/02/22 08:59 Last Admin: 12/05/21 08:23 Dose: 30 mg Documented By: Admin: 12/04/21 08:05 Dose: 30 mg Documented By: Admin: 12/03/21 09:00 Dose: 30 mg Documented By: Metoprolol Succinate (Metoprolol Succ 50mg Ext Rel Tab) 50 mg PO QPM JAYA Stop: 01/01/22 00:40 Last Admin: 12/04/21 21:08 Dose: 50 mg Documented By: Admin: 12/03/21 20:44 Dose: 50 mg Documented By: Admin: 12/02/21 19:33 Dose: 50 mg Documented By: Admin: 12/02/21 01:58 Dose: 50 mg Documented By: DMITRI Oxycodone HCl (Oxycodone Hcl Ir 5 Mg Tab (Immediate Release)) 5 mg PO Q4H PRN PRN Reason: Pain Stop: 12/15/21 23:12 Last Admin: 12/04/21 19:39 Dose: 5 mg Documented By: Admin: 12/03/21 13:47 Dose: 5 mg Documented By: Coding Level of Care Code 83185 Inpt Consult Level 3 Diagnoses Adjustment disorder with depressed mood F43.21 Sepsis A41.9 CHF (congestive heart failure) I50.9 Acute on chronic renal failure N17.9; N18.9 ASCVD (arteriosclerotic cardiovascular disease) I25.10
[2021-12-05] MEDS: oxyCODONE HCL IR 5 MG TAB (IMMEDIATE RELEASE) PO PRN (12:48)
[2021-12-05 13:21] LABS: HBSAG NON-REACTIVE (NON-REACTIVE); Hepatitis B Core Antibody Total NON-REACTIVE (NON-REACTIVE); Hepatitis B Surface Ab, Quant <5 mIU/mL (> OR = 10)
[2021-12-05] MEDS: METOPROLOL SUCC 50MG EXT REL TAB PO SCH (20:09)
[2021-12-06] MEDS: HEPARIN SOD 5,000 UNIT/0.5 ML VIAL SQ SCH ×3 (05:32→22:20)
[2021-12-06 07:08] LABS: BUN Creatinine Ratio 30.5 (10-20); Calcium 8.2 mg/dl (8.5-10.1); Creatinine Clr Calc Pharmacy 21.7 ml/min; Est GFR (African American) 14.7 ml/min; Est GFR (Non-African American) 12.7 ml/min; Potassium 4.6 mmol/L (3.5-5.1)
[2021-12-06] MEDS: BUMETANIDE 2 MG in SYRINGE 0 ML IV SCH ×2 (08:59→17:27)
[2021-12-06] MEDS: amLODIPine BESYLATE 5 MG TAB PO SCH (09:03)
[2021-12-06] MEDS: DOXYCYCLINE HYCLATE 100 MG CAP PO SCH ×2 (09:03→22:21)
[2021-12-06] MEDS: ISOSORBIDE MONO EXTENDED REL 30 MG TABCR PO SCH (09:04)
[2021-12-06] MEDS: CLOPIDOGREL BISULFATE 75 MG TAB PO SCH (09:04)
[2021-12-06] MEDS: ASPIRIN 81 MG ECTAB PO SCH (09:04)
[2021-12-06] MEDS: oxyCODONE HCL IR 5 MG TAB (IMMEDIATE RELEASE) PO PRN (09:18)
[2021-12-06] MEDS: INSULIN ASPART PER UNIT SC SCH ×4 (09:20→22:31)
[2021-12-06] MEDS: LANTUS PER UNIT CHARGE SQ SCH ×2 (09:25→22:31)
--- NOTE | 2021-12-06 10:02 | Hospitalist Progress Note ---
Date of Service December 06, 2021 Assessment & Plan (1) Acute hypoxemic respiratory failure: Plan: Severe sepsis SIRS plus GRIFFIN on CKD Secondary to bilateral LE cellulitis On presentation he had leucocytosis and elevated procal Urine cultures - probable contamination with skin lonnie XR did not show opacities Fever and leukocytosis are resolved Continue doxycycline only to complete 7 days treatment Doppler negative for DVT Acute on chronic systolic heart failure Possible cardiorenal syndrome History of medication noncompliance Acute on chronic kidney disease Elevated trop likely due to decompensated heart failure and GRIFFIN on CKD. No angina. ?Demand ischemia Cardiology recs appreciated Nephrology on board Renal function improving. Cr improving. Good urine output Discussed with Water Sander Continue bumex Monitor I/O, daily weight. TTE noted EF 45-50%, abnormal septal wall motion consistent with conduction delay and moderate hypokinesis of apex, otherwise normal wall motion, Mild /MR/TR CAD status post stent/CVA Valvular heart disease (mild /MR/TR) DM2 insulin requiring, A1c 8.5 on 12/05/21 Chronic anemia Monitor Anxiety/mood disorder Had reported suicidal thoughts on evening of 12/04/21 Patient currently denies that. Psych evaluation appreciated Possible adjustment with depressed mood DVT ppx- hep sq Admission and Anticipated Discharge Date Admission Date: December 01, 2021 Subjective 71-year-old man with history of chronic systolic heart failure, CAD status post stents, valvular heart disease, CVA, hypertension, DM type II, CKD, chronic anemia who presented for feeling unwell and fever for the past 2 days. Patient seen and examined. Reports symptoms continue to improve. Feels better today like " he has less fluid" Reports cough is now minimal Has chronic dyspnea on exertion Denied any headache. Denies any fevers, chills Denies any chest pain, palpitations Denies any dysuria, frequency, urgency Denies any nausea, vomiting, abdominal pain, diarrhea Denies any depression/SI/HI this AM Reports some low back pain which he associated with the bed Has chronic right wrist paresthesia Physical Exam Constitutional: + well hydrated and + obese; no acute distress Eyes: PERRL, conjunctivae normal, anicteric sclerae ENMT: external ear and nose normal, oropharynx normal Respiratory: normal respiratory effort, lungs clear to auscultation Cardiovascular: Rate/Rhythm: regular rate and regular rhythm S1 S2 Gastrointestinal (Abdomen): normal bowel sounds, soft, nontender, no hepatosplenomegaly Musculoskeletal: Bilateral pedal edema Bilateral anterior leg erythema. Stasis changes Neurologic: PERRL, EOMI, accommodation nl, no face palsy, no dysarthria Psychiatric: A+Ox3, euthymic affect Results & Data Results & Data ([facility]) Vital Signs (Past 12 Hours) Vital Signs Temp Pulse Pulse Resp BP BP Pulse Ox 12/06/21 08:19 36.7 C 70 18 136/72 95 12/06/21 07:29 68 12/06/21 02:52 36.5 C 68 18 122/71 93 12/06/21 00:00 71 12/05/21 23:12 36.6 C 64 18 131/72 94 12/05/21 22:35 O2 Del Method 12/06/21 08:19 Room Air 12/06/21 07:29 12/06/21 02:52 12/06/21 00:00 12/05/21 23:12 Room Air 12/05/21 22:35 Room Air Laboratory Results Abnormal lab results 12/04/21 12/05/21 12/06/21 Range/Units 06:00 20:14 06:07 Sodium 133 L (136-145) mmol/L Carbon Dioxide 20 L (21-32) mmol/L BUN 133 H (6-23) mg/dl Creatinine 4.36 H D (0.6-1.4) mg/dl BUN/Creatinine Ratio 30.5 H (10-20) Glucose 174 H (70-99(Fasting)) mg/dl POC Glucose 208 H (70-99) mg/dl Calcium 8.2 L (8.5-10.1) mg/dl Hep Bs Antibody, Quant <5 L (> OR = 10) mIU/mL 12/06/21 Range/Units 07:36 Sodium (136-145) mmol/L Carbon Dioxide (21-32) mmol/L BUN (6-23) mg/dl Creatinine (0.6-1.4) mg/dl BUN/Creatinine Ratio (10-20) Glucose (70-99(Fasting)) mg/dl POC Glucose 177 H (70-99) mg/dl Calcium (8.5-10.1) mg/dl Hep Bs Antibody, Quant (> OR = 10) mIU/mL
--- NOTE | 2021-12-06 12:21 | Nephrology Progress Note ---
Date of Service December 06, 2021 Assessment & Plan (1) Acute on chronic renal failure: Plan: Acute on advanced progressive chronic renal insufficiency in a patient with obstructive uropathy in past 6 mos, longstanding uncontrolled volume overload issues, sepsis likely from cellulitis, CK levels and history consistent with possible rhabdomyolysis, medication/care nonadherence, baseline nephrotic range proteinuria. unable to access most recent baseline creatinine at this time d/t connectivity issues from [facility] to [facility] [place] [facility]. >fluid overload is most pressing concern; continue bumex 2 mg IV bid >fluid limit 1.5L daily and <2 gm daily Na -daily standing weight qAM >unremarkable renal u/s w/ resolution of spring hydronephrosis -daily bmp >renal function contine to improve, and so is the UOP. -needs to start dialysis for fluid management next 24 hrs > d/w patient indications/risks/benefits/alternatives and that this will likely be chronic; consent on chart; critical care assistance w/ temp cath placement appreciated but georgina refused the temporary catheter yesterday. - explained to him that he will did dialysis for Volume optimization, He " will take a day at time and decide". - will consult vascular for TDC placement on 12/08 and plan 3 IP dialysis with temp line" if he agrees. >>>pls ask case mgt to arrange for admission to [facility] in center HD; pt aware/agrees Admission and Anticipated Discharge Date Admission Date: December 01, 2021 Subjective 71-year-old man with history of chronic systolic heart failure, CAD status post stents, valvular heart disease, CVA, hypertension, DM type II, CKD, chronic anemia who presented for feeling unwell and fever for the past 2 days. Patient seen and examined. Reports symptoms continue to improve. Feels better today like " he has less fluid" Review of Systems Review of Systems: Mild distress 3+ pitting edema + Lymphedema+ Chronic static changes Physical Exam Physical Exam: General- oriented x 3, not in distress, speaks in sentences with no effort or accessory muscle use Eyes- anicteric Neck- no JVD Lungs- clear breath sounds bilaterally, no rales/wheezes Heart- normal rate, regular rhythm; no murmurs Abdomen- normal bowel sounds, nondistended, soft, nontender No CVA tenderness Extremities- 3+pretibial edema, no calf tenderness Neuro- alert, oriented x 3; no gross focal neurologic deficits Skin- warm & dry Results & Data ([facility]) Vital Signs (Past 12 Hours) Vital Signs Temp Pulse Pulse Resp BP Pulse Ox O2 Del Method 12/06/21 08:19 36.7 C 70 18 136/72 95 Room Air 12/06/21 07:29 68 12/06/21 02:52 36.5 C 68 18 122/71 93 Laboratory Results 12/05/21 06:36 12/06/21 06:07
[2021-12-06] MEDS: METOPROLOL SUCC 50MG EXT REL TAB PO SCH (22:20)
[2021-12-07] MEDS: HEPARIN SOD 5,000 UNIT/0.5 ML VIAL SQ SCH ×3 (06:46→21:23)
[2021-12-07 07:03] LABS: Hematocrit (blood only) 29.8 % (40.1-51.0); Mean Corpuscular Hemoglobin 28.2 pg (25.0-34.0); Mean Corpuscular Hgb Conc 33.6 g/dL (32.0-36.0); Mean Corpuscular Volume 84.2 fL (80.0-100.0); Mean Platelet Volume 9.9 fL (9.4-12.4); Platelet Count 224 K/uL (130-400); RDW Coefficient of Variation 13.2 % (11.5-14.5); RDW Standard Deviation 40.7 fL (36.4-46.3); Red Blood Count 3.54 M/uL (4.63-6.08)
[2021-12-07 07:33] LABS: Calcium 8.6 mg/dl (8.5-10.1); Creatinine Clr Calc Pharmacy 24.4 ml/min; Potassium 4.4 mmol/L (3.5-5.1)
[2021-12-07] MEDS ORDERED: POLYETHYLENE (MIRALAX) 17 GM PACK PO PRN (07:52)
[2021-12-07 07:56] LABS: BUN Creatinine Ratio 33.3 (10-20); Est GFR (African American) 17.2 ml/min; Est GFR (Non-African American) 14.8 ml/min
[2021-12-07] MEDS: INSULIN ASPART PER UNIT SC SCH ×4 (09:08→20:04)
[2021-12-07] MEDS: CLOPIDOGREL BISULFATE 75 MG TAB PO SCH (09:15)
[2021-12-07] MEDS: BUMETANIDE 2 MG in SYRINGE 0 ML IV SCH ×2 (09:15→17:08)
[2021-12-07] MEDS: ASPIRIN 81 MG ECTAB PO SCH (09:15)
[2021-12-07] MEDS: amLODIPine BESYLATE 5 MG TAB PO SCH (09:15)
[2021-12-07] MEDS: DOXYCYCLINE HYCLATE 100 MG CAP PO SCH ×2 (09:15→21:23)
[2021-12-07] MEDS: ISOSORBIDE MONO EXTENDED REL 30 MG TABCR PO SCH (09:16)
[2021-12-07] MEDS: LANTUS PER UNIT CHARGE SQ SCH ×2 (09:22→20:04)
--- NOTE | 2021-12-07 10:39 | Nephrology Progress Note ---
Date of Service December 07, 2021 Assessment & Plan (1) Acute on chronic renal failure: Plan: Acute on advanced progressive chronic renal insufficiency in a patient with obstructive uropathy in past 6 mos, longstanding uncontrolled volume overload issues, sepsis likely from cellulitis, CK levels and history consistent with possible rhabdomyolysis, medication/care nonadherence, baseline nephrotic range proteinuria. unable to access most recent baseline creatinine at this time d/t connectivity issues from [facility] to [facility]. >fluid overload is most pressing concern; continue bumex 2 mg IV bid >fluid limit 1.5L daily and <2 gm daily Na -daily standing weight qAM >unremarkable renal u/s w/ resolution of spring hydronephrosis -daily bmp >renal function contine to improve, and so is the UOP, however his BUN continue to rise. -needs to start dialysis for fluid management > d/w patient( DR Galdamez) indications/risks/benefits/alternatives and that this will likely be chronic; consent on chart; critical care assistance w/ temp cath placement appreciated but georgina refused the temporary catheter on tuesday. - explained to him that he will did dialysis for Volume optimization, He " will take a day at time and decide". - will consult vascular for TDC placement on 12/08 if he agrees. >>>pls ask case mgt to arrange for admission to [facility] in center HD; pt aware/agrees Admission and Anticipated Discharge Date Admission Date: December 01, 2021 Subjective 71-year-old man with history of chronic systolic heart failure, CAD status post stents, valvular heart disease, CVA, hypertension, DM type II, CKD, chronic anemia who presented for feeling unwell and fever for the past 2 days. Patient seen and examined. Reports symptoms continues to improve. Review of Systems Review of Systems: Mild distress 3+ pitting edema + Lymphedema+ Chronic static changes Physical Exam Physical Exam: General- oriented x 3, not in distress, speaks in sentences with no effort or accessory muscle use Eyes- anicteric Neck- no JVD Lungs- clear breath sounds bilaterally, no rales/wheezes Heart- normal rate, regular rhythm; no murmurs Abdomen- normal bowel sounds, nondistended, soft, nontender No CVA tenderness Extremities- 3+pretibial edema, no calf tenderness Neuro- alert, oriented x 3; no gross focal neurologic deficits Skin- warm & dry Results & Data ([facility]) Vital Signs (Past 12 Hours) Vital Signs Temp Pulse Pulse Resp BP BP Pulse Ox 12/07/21 07:55 36.7 C 70 18 152/76 H 94 12/07/21 02:54 36.6 C 75 18 157/76 H 93 12/07/21 00:00 73 12/06/21 22:58 36.6 C 76 18 158/76 H 94 O2 Del Method 12/07/21 07:55 Room Air 12/07/21 02:54 Room Air 12/07/21 00:00 12/06/21 22:58 Room Air Laboratory Results 12/07/21 06:31 12/07/21 06:31
[2021-12-07] MEDS: SENNA 8.6 MG TAB PO SCH (10:45)
--- NOTE | 2021-12-07 12:29 | Hospitalist Progress Note ---
Date of Service December 07, 2021 Assessment & Plan (1) Acute hypoxemic respiratory failure: Plan: Severe sepsis SIRS plus GRIFFIN on CKD Secondary to bilateral LE cellulitis On presentation he had leucocytosis and elevated procal Urine cultures - probable contamination with skin lonnie XR did not show opacities Fever and leukocytosis are resolved Continue doxycycline only to complete 7 days treatment Doppler negative for DVT Acute on chronic systolic heart failure Possible cardiorenal syndrome History of medication noncompliance Acute on chronic kidney disease Elevated trop likely due to decompensated heart failure and GRIFFIN on CKD. No angina. ?Demand ischemia Cardiology recs appreciated Nephrology on board Though patient's Cr is improved and he is making urine, his BUN trends upwards Discussed with Waste Machine Offbearer. Dr Thacker recommends getting vascular consult for tunneled HD catheter tomorrow and HD arrangements. Patient agreeable to this Continue bumex Monitor I/O, daily weight. TTE noted EF 45-50%, abnormal septal wall motion consistent with conduction delay and moderate hypokinesis of apex, otherwise normal wall motion, Mild /MR/TR CAD status post stent/CVA Valvular heart disease (mild /MR/TR) DM2 insulin requiring, A1c 8.5 on 12/05/21 Chronic anemia Monitor Anxiety/mood disorder Had reported suicidal thoughts on evening of 12/04/21 Patient currently denies that. Psych evaluation appreciated Possible adjustment with depressed mood DVT ppx- hep sq Admission and Anticipated Discharge Date Admission Date: December 01, 2021 Subjective Patient seen and examined. Reports cough continues to improve Has chronic dyspnea on exertion Denied any headache. Denies any fevers, chills Denies any chest pain, palpitations Denies any dysuria, frequency, urgency Denies any nausea, vomiting, abdominal pain, diarrhea Denies any depression/SI/HI Physical Exam Constitutional: + well hydrated and + obese; no acute distress Eyes: PERRL, conjunctivae normal, anicteric sclerae ENMT: external ear and nose normal, oropharynx normal Respiratory: normal respiratory effort, lungs clear to auscultation Cardiovascular: Rate/Rhythm: regular rate and regular rhythm S1 S2 Gastrointestinal (Abdomen): normal bowel sounds, soft, nontender, no hepatosplenomegaly Musculoskeletal: Bilateral pedal edema Bilateral anterior leg erythema. Stasis changes Neurologic: PERRL, EOMI, accommodation nl, no face palsy, no dysarthria Psychiatric: A+Ox3, euthymic affect Results & Data Results & Data ([facility]) Vital Signs (Past 12 Hours) Vital Signs Temp Pulse Pulse Resp BP BP Pulse Ox 12/07/21 11:02 36.5 C 80 18 133/70 95 12/07/21 06:07 70 12/07/21 07:55 36.7 C 70 18 152/76 H 94 12/07/21 02:54 36.6 C 75 18 157/76 H 93 O2 Del Method 12/07/21 11:02 Room Air 12/07/21 06:07 12/07/21 07:55 Room Air 12/07/21 02:54 Room Air Laboratory Results Abnormal lab results 12/06/21 12/06/21 12/07/21 Range/Units 16:35 22:19 06:31 RBC 3.54 L (4.63-6.08) M/uL Hgb 10.0 L (14.0-18.0) g/dl Hct 29.8 L (40.1-51.0) % Sodium (136-145) mmol/L Carbon Dioxide (21-32) mmol/L Anion Gap (3-11) BUN (6-23) mg/dl Creatinine (0.6-1.4) mg/dl BUN/Creatinine Ratio (10-20) Glucose (70-99(Fasting)) mg/dl POC Glucose 229 H 169 H (70-99) mg/dl 12/07/21 12/07/21 12/07/21 Range/Units 06:31 07:19 11:35 RBC (4.63-6.08) M/uL Hgb (14.0-18.0) g/dl Hct (40.1-51.0) % Sodium 134 L (136-145) mmol/L Carbon Dioxide 19 L (21-32) mmol/L Anion Gap 13 H (3-11) BUN 128 H (6-23) mg/dl Creatinine 3.84 H D (0.6-1.4) mg/dl BUN/Creatinine Ratio 33.3 H (10-20) Glucose 157 H (70-99(Fasting)) mg/dl POC Glucose 167 H 230 H (70-99) mg/dl
[2021-12-07] MEDS: METOPROLOL SUCC 50MG EXT REL TAB PO SCH (21:23)
[2021-12-08] MEDS: HEPARIN SOD 5,000 UNIT/0.5 ML VIAL SQ SCH ×3 (05:46→20:45)
[2021-12-08] MEDS: oxyCODONE HCL IR 5 MG TAB (IMMEDIATE RELEASE) PO PRN ×2 (08:52→20:02)
[2021-12-08] MEDS: ASPIRIN 81 MG ECTAB PO SCH (08:57)
[2021-12-08] MEDS: DOXYCYCLINE HYCLATE 100 MG CAP PO SCH ×2 (08:57→20:03)
[2021-12-08] MEDS: SENNA 8.6 MG TAB PO SCH (08:58)
[2021-12-08] MEDS: CLOPIDOGREL BISULFATE 75 MG TAB PO SCH (08:58)
[2021-12-08] MEDS: LANTUS PER UNIT CHARGE SQ SCH ×2 (08:58→21:04)
[2021-12-08] MEDS: INSULIN ASPART PER UNIT SC SCH ×4 (08:59→21:04)
[2021-12-08] MEDS: BUMETANIDE 2 MG in SYRINGE 0 ML IV SCH ×3 (09:00→17:32)
[2021-12-08] MEDS: ISOSORBIDE MONO EXTENDED REL 30 MG TABCR PO SCH (09:01)
--- NOTE | 2021-12-08 09:34 | Nephrology Progress Note ---
Date of Service December 08, 2021 Assessment & Plan Admission and Anticipated Discharge Date Admission Date: December 01, 2021 Subjective Assessment & Plan (1) Acute on chronic renal failure: Plan: Acute on advanced progressive chronic renal insufficiency in a patient with obstructive uropathy in past 6 mos, longstanding uncontrolled volume overload issues, sepsis likely from cellulitis, CK levels and history consistent with possible rhabdomyolysis, medication/care nonadherence, baseline nephrotic range proteinuria. >fluid overload is most pressing concern; continue bumex 2 mg IV bid--however no meaningful and enough diuresis happened >fluid limit 1.5L daily and <2 gm daily Na -dailyweight qAM >unremarkable renal u/s w/ resolution of spring R hydronephrosis -daily bmp Pls ask case mgt to arrange for admission to [facility] in center HD; pt aware/agrees. He refused Temp cath over the weekend but has agreed with Tunnelled HD cath. vascular has been consulted. He wants to eat soon Continue High dose diuretics--will even raise the dose today. Subjective 71-year-old man with history of chronic systolic heart failure, CAD status post stents, valvular heart disease, CVA, hypertension, DM type II, CKD, chronic anemia who presented for feeling unwell and fever for the past 2 days. Still has massive edema. Some diuresis. Creat dropping but BUN rising. Diuretics resistant fluid overload. Review of Systems Review of Systems: Mild distress 3+ pitting edema + Lymphedema+ Chronic s tatic changes Physical Exam Physical Exam: General- oriented x 3, not in distress, speaks in sentences with no effort or accessory muscle use Eyes- anicteric Neck- no JVD Lungs- clear breath sounds bilaterally, no rales/wheezes Heart- normal rate, regular rhythm; no murmurs Abdomen- normal bowel sounds, nondistended, soft, nontender No CVA tenderness Extremities- 3+pretibial edema, no calf tenderness Neuro- alert, oriented x 3; no gross focal neurologic deficits Skin- warm & dry Results & Data ([facility]) Vital Signs (Past 12 Hours) Vital Signs Temp Pulse Pulse Resp BP BP Pulse Ox 12/08/21 08:57 62 142/71 H 12/08/21 07:48 36.5 C 75 18 133/73 95 12/08/21 07:00 71 12/08/21 00:42 36.9 C 72 18 177/66 H 95 12/07/21 23:18 74 O2 Del Method 12/08/21 08:57 12/08/21 07:48 Room Air 12/08/21 07:00 12/08/21 00:42 Room Air 12/07/21 23:18
[2021-12-08] MEDS: amLODIPine BESYLATE 5 MG TAB PO SCH (10:21)
[2021-12-08 10:33] LABS: Hematocrit (blood only) 30.8 % (40.1-51.0); Hemoglobin 10.6 g/dl (14.0-18.0); Mean Corpuscular Hemoglobin 28.4 pg (25.0-34.0); Mean Corpuscular Hgb Conc 34.4 g/dL (32.0-36.0); Mean Corpuscular Volume 82.6 fL (80.0-100.0); Mean Platelet Volume 9.9 fL (9.4-12.4); Platelet Count 257 K/uL (130-400); RDW Coefficient of Variation 13.5 % (11.5-14.5); RDW Standard Deviation 40.4 fL (36.4-46.3); Red Blood Count 3.73 M/uL (4.63-6.08); White Blood Count 10.96 K/ul (4.8-10.8)
--- NOTE | 2021-12-08 10:49 | Consultation ---
Date of Consultation December 08, 2021 Assessment & Plan (1) Acute on chronic renal failure: Pt states he refused labs this AM, but is now agreeable to have them drawn. Pt is resistant to starting HD unless absolutely necessary and states he is feeling much better. Continues to make urine and his labs have otherwise improved since admission. No note available from nephrology this AM. Will tentatively plan for permcath insertion tomorrow, if determined by nephrology to be necessary. Pt is agreeable to this plan. History of Present Illness Reason for Consultation: GRIFFIN Attending Physician: Charley Darling MD History of Present Illness 71 yo m with multiple medical problems, including DMII, CKD, CHF, CAD, anemia, depression, ischemic cardiomyopathy, HTN, dyslipidemia, neuropathy, kidney stones, admitted with GRIFFIN on CKD and sepsis, seen in consultation today for permcath insertion for HD. Pt states he developed worsening renal fxn after having kidney stones a few months ago. Pt states he is feeling much improved since admission. States he has been continuing to urinate and his edema is improving. Pt denies CASTELLON, fever, chest pain, SOB, abd pain, N/V, rest pain, claudication, other complaints. Allergies Allergy/AdvReac Type Severity Reaction Status Date / Time losartan Allergy Diarrhea Unverified 12/01/21 21:45 lisinopril AdvReac Severe Cough Verified 12/01/21 21:45 Home Medications Medication Instructions Recorded Confirmed Type amlodipine 10 mg tablet 10 mg PO QAM 06/17/21 12/01/21 History atorvastatin 80 mg tablet 80 mg PO QAM 06/17/21 12/01/21 History clopidogrel 75 mg tablet 75 mg PO QAM 06/17/21 12/01/21 History furosemide 40 mg tablet 40 mg PO UD 06/17/21 12/01/21 History gabapentin 300 mg capsule 300 mg PO TID 06/17/21 12/01/21 History insulin NPH isoph U-100 human 100 100 unit subcut UD 06/17/21 12/01/21 History unit/mL subcutaneous suspension (Novolin N NPH U-100 Insulin isophane) insulin regular human 100 unit/mL 20 unit subcut AC 06/17/21 12/01/21 History injection solution (Novolin R Regular U-100 Insulin) metoprolol succinate 50 mg 50 mg PO QPM 06/17/21 12/01/21 History tablet,extended release 24 hr sildenafil 50 mg tablet 50 mg PO DAILY PRN Erectile 06/17/21 12/01/21 History Dysfunction aspirin 81 mg tablet,delayed 81 mg PO QAM 12/01/21 12/01/21 History release cholecalciferol (vitamin D3) 25 75 mcg PO DAILY 12/01/21 12/01/21 History mcg (1,000 unit) tablet (Vitamin D3) oxycodone 5 mg tablet 5 mg PO HS PRN Pain, Severe 12/01/21 12/01/21 History Patient History Medical History Cerebrovascular disease stroke 2013 CKD (chronic kidney disease), stage IV Diabetes mellitus type 2 with complications Diabetic neuropathy Dyslipidemia Hypertension Hypertensive heart disease Ischemic cardiomyopathy EF 35-40% Kidney stone Morbid obesity Surgical History H/O knee surgery History of tonsillectomy S/P surgical manipulation of ankle joint Stented coronary artery JOAO placement to the Circumflex, Proximal LAD and mid LAD with a EMT/PARAMEDIC of his RCA Social History Smoking Status: Never smoker Second Hand Exposure: No; Hx Alcohol Use: No Hx Substance Use: No Preferred Language: [place] Communication Ability: Effective Neuro Ophthalmologist Required: No Beliefs That Will Affect Care: None marital status: Current Living Situation: Alone Current Living Situation Comment: alone in apartment building current occupational status: retired current occupation: Retired How many Children do You have: 3 Other Information That Helps Us Care for You: No Feels Safe at Home: Yes Safety Concerns: Feels Safe At This Time Assistive Devices: Cane and Scooter/Electric Scooter Review of Systems Review of Systems: All systems reviewed & are unremarkable except as noted in HPI & below Physical Exam Constitutional: WD/WN, vitals as above + morbidly obese, cooperative and comfortable; not in distress Neck: normal visual inspection and trachea midline Respiratory: normal respiratory effort Auscultation: + diminished lung sounds and + crackles (mild basilar) Cardiovascular: Rate/Rhythm: regular rate and regular rhythm Vessels: dorsalis pedis pulses present and radial pulses present; + abnormal peripheral pulses Extremities: normal capillary refill and + edema Gastrointestinal (Abdomen): Inspection/Auscultation: abdomen normal to inspection Percussion/Palpation: abdomen nontender Musculoskeletal: no cyanosis or clubbing, extremities motor strength 5/5 Skin: no rashes, warm and dry Neurologic: moves all extremities and awake; no focal motor deficits and not confused Psychiatric: Orientation: alert and oriented x 3 Affect: + depressed affect and + tearful affect Results & Data ([facility]) Vital Signs (Past 12 Hours) Vital Signs Temp Pulse Pulse Resp BP BP Pulse Ox 12/08/21 08:57 62 142/71 H 12/08/21 07:48 36.5 C 75 18 133/73 95 12/08/21 07:00 71 12/08/21 00:42 36.9 C 72 18 177/66 H 95 12/07/21 23:18 74 O2 Del Method 12/08/21 08:57 12/08/21 07:48 Room Air 12/08/21 07:00 12/08/21 00:42 Room Air 12/07/21 23:18
[2021-12-08 11:02] LABS: BUN Creatinine Ratio 33.6 (10-20); Calcium 8.9 mg/dl (8.5-10.1); Creatinine Clr Calc Pharmacy 25.8 ml/min; Est GFR (African American) 18.2 ml/min; Est GFR (Non-African American) 15.7 ml/min; Potassium 4.8 mmol/L (3.5-5.1)
--- NOTE | 2021-12-08 11:09 | Hospitalist Progress Note ---
Date of Service December 08, 2021 Assessment & Plan (1) Acute hypoxemic respiratory failure: Plan: Severe sepsis SIRS plus GRIFFIN on CKD Secondary to bilateral LE cellulitis On presentation he had leucocytosis and elevated procal Urine cultures - probable contamination with skin lonnie XR did not show opacities Fever and leukocytosis are resolved Continue doxycycline only to complete 7 days treatment Doppler negative for DVT Acute on chronic systolic heart failure Possible cardiorenal syndrome History of medication noncompliance Acute on chronic kidney disease Elevated trop likely due to decompensated heart failure and GRIFFIN on CKD. No angina. ?Demand ischemia Cardiology recs appreciated Nephrology on board Discussed with Interactive Multimedia Designer Dr Johnson today. He still recommends vascular consult for tunneled HD catheter Improved renal function. However, Nephrology wants to start HD for fluid overload management Continue bumex per nephro Monitor I/O, daily weight. TTE noted EF 45-50%, abnormal septal wall motion consistent with conduction delay and moderate hypokinesis of apex, otherwise normal wall motion, Mild /MR/TR CAD status post stent/CVA Valvular heart disease (mild /MR/TR) DM2 insulin requiring, A1c 8.5 on 12/05/21 Chronic anemia Monitor Anxiety/mood disorder Had reported suicidal thoughts on evening of 12/04/21 Patient currently denies that. Psych evaluation appreciated Possible adjustment with depressed mood DVT ppx- hep sq Admission and Anticipated Discharge Date Admission Date: December 01, 2021 Subjective Patient seen and examined. Still has leg swelling Has chronic dyspnea on exertion Denied any headache, fevers, chills Denies any chest pain, palpitations Denies any dysuria, frequency, urgency Denies any nausea, vomiting, abdominal pain, diarrhea Denies any depression/SI/HI Physical Exam Constitutional: + well hydrated and + obese; no acute distress Eyes: PERRL, conjunctivae normal, anicteric sclerae ENMT: external ear and nose normal, oropharynx normal Respiratory: normal respiratory effort, lungs clear to auscultation Cardiovascular: Rate/Rhythm: regular rate and regular rhythm S1 S2 Gastrointestinal (Abdomen): normal bowel sounds, soft, nontender, no hepatosplenomegaly Musculoskeletal: Bilateral pedal edema Bilateral anterior leg erythema. Stasis changes Neurologic: PERRL, EOMI, accommodation nl, no face palsy, no dysarthria Psychiatric: A+Ox3, euthymic affect Results & Data Results & Data ([facility]) Vital Signs (Past 12 Hours) Vital Signs Temp Pulse Pulse Resp BP BP Pulse Ox 12/08/21 08:57 62 142/71 H 12/08/21 07:48 36.5 C 75 18 133/73 95 12/08/21 07:00 71 12/08/21 00:42 36.9 C 72 18 177/66 H 95 12/07/21 23:18 74 O2 Del Method 12/08/21 08:57 12/08/21 07:48 Room Air 12/08/21 07:00 12/08/21 00:42 Room Air 12/07/21 23:18 Laboratory Results Abnormal lab results 12/07/21 12/07/21 12/08/21 Range/Units 16:21 19:40 07:14 WBC (4.8-10.8) K/ul RBC (4.63-6.08) M/uL Hgb (14.0-18.0) g/dl Hct (40.1-51.0) % Sodium (136-145) mmol/L BUN (6-23) mg/dl Creatinine (0.6-1.4) mg/dl BUN/Creatinine Ratio (10-20) Glucose (70-99(Fasting)) mg/dl POC Glucose 212 H 252 H 162 H (70-99) mg/dl 12/08/21 12/08/21 12/08/21 Range/Units 10:14 10:14 11:18 WBC 10.96 H (4.8-10.8) K/ul RBC 3.73 L (4.63-6.08) M/uL Hgb 10.6 L (14.0-18.0) g/dl Hct 30.8 L (40.1-51.0) % Sodium 135 L (136-145) mmol/L BUN 123 H (6-23) mg/dl Creatinine 3.66 H (0.6-1.4) mg/dl BUN/Creatinine Ratio 33.6 H (10-20) Glucose 164 H (70-99(Fasting)) mg/dl POC Glucose 218 H (70-99) mg/dl
[2021-12-08] MEDS: METOPROLOL SUCC 50MG EXT REL TAB PO SCH (20:02)
[2021-12-09] MEDS: HEPARIN SOD 5,000 UNIT/0.5 ML VIAL SQ SCH ×3 (05:19→21:16)
[2021-12-09 06:48] LABS: Hematocrit (blood only) 28.7 % (40.1-51.0); Hemoglobin 9.6 g/dl (14.0-18.0); Mean Corpuscular Hemoglobin 28.3 pg (25.0-34.0); Mean Corpuscular Hgb Conc 33.4 g/dL (32.0-36.0); Mean Corpuscular Volume 84.7 fL (80.0-100.0); Mean Platelet Volume 9.7 fL (9.4-12.4); Platelet Count 226 K/uL (130-400); RDW Coefficient of Variation 13.5 % (11.5-14.5); RDW Standard Deviation 41.5 fL (36.4-46.3); Red Blood Count 3.39 M/uL (4.63-6.08); White Blood Count 8.82 K/ul (4.8-10.8)
[2021-12-09 07:20] LABS: BUN Creatinine Ratio 35.3 (10-20); Calcium 8.7 mg/dl (8.5-10.1); Creatinine Clr Calc Pharmacy 28.2 ml/min; Est GFR (African American) 20.3 ml/min; Est GFR (Non-African American) 17.5 ml/min; Potassium 4.7 mmol/L (3.5-5.1)
--- NOTE | 2021-12-09 07:44 | History & Physical Bridge Note ---
Date of Service December 09, 2021 History & Physical Bridge Note Patient for insertion of a permcath today. I have discussed the risks options and benefits of the procedure with the patient. The patient understands the risks options and benefits and agrees to the procedure. I have examined the patient, reviewed the History & Physical and in the interval since the performance of the History & Physical I have noted the following changes of clinical significance: no changes noted
[2021-12-09] MEDS ORDERED: ceFAZolin 1000MG 1,000 MG/7.5 ML SYR IV ONE (08:00)
[2021-12-09] MEDS: LANTUS PER UNIT CHARGE SQ SCH ×2 (08:30→21:14)
[2021-12-09] MEDS: INSULIN ASPART PER UNIT SC SCH ×4 (08:30→21:14)
[2021-12-09] MEDS: amLODIPine BESYLATE 5 MG TAB PO SCH (08:31)
[2021-12-09] MEDS: ISOSORBIDE MONO EXTENDED REL 30 MG TABCR PO SCH (08:32)
[2021-12-09] MEDS: BUMETANIDE 2 MG in SYRINGE 0 ML IV SCH ×2 (08:32→17:55)
[2021-12-09] MEDS: SENNA 8.6 MG TAB PO SCH (08:33)
[2021-12-09] MEDS: ASPIRIN 81 MG ECTAB PO SCH (08:51)
[2021-12-09] MEDS: CLOPIDOGREL BISULFATE 75 MG TAB PO SCH (08:51)
[2021-12-09] MEDS ORDERED: SODIUM CHLORIDE 0.9% 1000ML 1,000 ML IV PRN (11:42)
[2021-12-09] MEDS ORDERED: fentaNYL citrate 100 MCG/2 ML VIAL ONE (12:21)
[2021-12-09] MEDS ORDERED: MIDAZOLAM HCL 1 MG/ML 2ML VIAL ONE (12:21)
[2021-12-09] MEDS ORDERED: HEPARIN SOD (PORCINE) 5,000 UNITS/ML VIAL ONE (12:22)
[2021-12-09] MEDS ORDERED: LIDOCAINE 1% LOCAL 20 ML VIAL INFIL ONE (13:11)
--- NOTE | 2021-12-09 13:11 | Pre Anesthesia Assessment ---
Date of Service December 09, 2021 Pre Sedation Assessment Vital Signs Temp Pulse Pulse Resp BP BP BP 12/09/21 13:05 79 14 130/85 12/09/21 13:00 79 14 132/77 12/09/21 12:55 79 14 156/82 H 12/09/21 12:50 81 18 147/84 H 12/09/21 08:00 12/09/21 09:00 82 12/09/21 10:32 36.6 C 77 20 157/73 H 12/09/21 08:03 36.8 C 20 147/71 H 12/09/21 03:57 36.7 C 70 18 148/76 H 12/08/21 22:55 36.7 C 77 18 121/72 12/08/21 21:00 12/08/21 19:57 36.7 C 86 20 148/75 H 12/08/21 15:34 36.6 C 74 18 118/68 Pulse Ox O2 Del Method O2 Flow Rate 12/09/21 13:05 99 Oxymask 4 12/09/21 13:00 99 Oxymask 4 12/09/21 12:55 99 Oxymask 4 12/09/21 12:50 99 Oxymask 4 12/09/21 08:00 Room Air 12/09/21 09:00 94 Room Air 12/09/21 10:32 93 Room Air 12/09/21 08:03 97 Room Air 12/09/21 03:57 95 Room Air 12/08/21 22:55 95 Room Air 12/08/21 21:00 Room Air 12/08/21 19:57 95 Room Air 12/08/21 15:34 95 Room Air Cardiovascular RRR, no murmur, no edema Respiratory normal respiratory effort, lungs clear to auscultation Pre-Sedation Airway Assessment Smoking Status: Never smoker Hx Sleep Apnea: No Short, Thick Neck: Yes Thyromental Distance: > or= 3.5 Finger Breadths Oral Cavity: + WNL Mallampati Class: III ASA: ASA4 NPO Status Date of Last Intake of Fluids: 12/09/21 Time of Last Intake of Fluids: 00:00 Last Oral Intake of Fluids Comment: sips with meds Date of Last Intake of Solid Food: 12/08/21 Time of Last Intake of Solid Foods: 17:00 Procedure Planning Contraindications for Sedation: none Current Medications Reviewed: Yes Notes The planned sedation has been discussed with the patient. Informed Consent was obtained. I have identified the patient, determined the appropriateness of sedation and have assessed the patient immediately prior to the procedure. All medicine(s) and interventions are by my order.
--- NOTE | 2021-12-09 13:13 | Operative Report ---
Post Operative Report Pre & Post Diagnosis Operation Date: 12/09/21 10:40 Pre-Op Diagnosis: Acute Kidney Injury Post-Op Diagnosis: Acute Kidney Injury I identified the patient and participated in the time-out.: Yes Procedure Operation Date: 12/09/21 10:40 Actual Procedures p Insertion of Perm Catheter, Right Internal Jugular Approach, Ultrasound Localization of Right Internal Jugular Vein, Fluroscopy for Positioning Moderate Sedation [id number](Right) - Chris Wang MD Surgeon Chris Wang MD Tire Inspector none Estimated Blood Loss 5 Findings Consistent with Post-Op Diagnosis Specimens none Anesthesia Type RN Sedation Complications none Disposition Accompanied Patient To Recovery: No Disposition: Recovery Room Indications This is 71-year-old gentleman with acute kidney injury in need of dialysis. PermCath was recommended. I have discussed the risks options and benefits of the procedure with the patient. The patient understands the risks options and benefits and agrees to the procedure. Description of Procedure Patient was taken to the angio suite and placed in the supine position. The right side of the neck and chest wall were prepped and draped in a sterile manner. The patient was identified and a timeout performed. Local anesthesia was then administered to the appropriate areas of the neck and chest wall. Ultrasound was then used to locate the right internal jugular vein. The vein compressed easily, had no filing defects, and was patent. The vein was then punctured under direct ultrasound imaging. A guidewire was then passed centrally under fluoroscopic imaging. A stab wound was then made in the anterior chest wall and a 19 cm permcath was passed from the stab wound on the chest wall to the puncture site on the neck. The puncture site was then dilated till the 14Fr peel away sheath was inserted. The permcath was then inserted through the sheath to a central position in the distal superior vena cava. The peel away sheath was then removed. The catheter was then sutured in place using nylon sutures. The puncture was then closed using a 4-0 Vicryl subcuticular suture. Dermabond was used for a dressing on the puncture site. Both ports aspirated and flushed easily and were then packed with heparin. A sterile dressing was applied to the catheter. The patient left the operation room in satisfactory condition and tolerated the procedure well. All needle and sponge counts were correct at the end of the procedure. I attest to the content of the Intraoperative Record and any orders documented therein. Any exceptions are noted below.
[2021-12-09] MEDS ORDERED: ARISTA ABSORBABLE HEMOSTAT 3GM TOP ONE (13:23)
[2021-12-09] MEDS ORDERED: GELATIN SPONGE 12-7MM ONE (13:57)
--- NOTE | 2021-12-09 18:18 | Hospitalist Progress Note ---
Date of Service December 09, 2021 Assessment & Plan (1) Acute hypoxemic respiratory failure: Plan: Severe sepsis SIRS plus GRIFFIN on CKD Secondary to bilateral LE cellulitis On presentation he had leucocytosis and elevated procal Urine cultures - probable contamination with skin lonnie XR did not show opacities Fever and leukocytosis are resolved Completed the course of doxycycline 7 days treatment Doppler negative for DVT Acute on chronic systolic heart failure Possible cardiorenal syndrome History of medication noncompliance Acute on chronic kidney disease Elevated trop likely due to decompensated heart failure and GRIFFIN on CKD. No angina. ?Demand ischemia Cardiology recs appreciated Vascular surgery on board - S/P Insertion of Perm Catheter (12/09/21) by Dr. Wang Nephrology on board- Had HD today to manage fluid overload and tolerated it ( first HD) Continue bumex per nephro Monitor I/O, daily weight. TTE noted EF 45-50%, abnormal septal wall motion consistent with conduction delay and moderate hypokinesis of apex, otherwise normal wall motion, Mild /MR/TR CAD status post stent/CVA Valvular heart disease (mild /MR/TR) DM2 insulin requiring, A1c 8.5 on 12/05/21 Chronic anemia Monitor Anxiety/mood disorder Had reported suicidal thoughts on evening of 12/04/21 Patient currently denies that. Psych evaluation appreciated Possible adjustment with depressed mood DVT ppx- hep sq Disposition Will transfer to medical since patient refused to keep the tele monitor on Admission and Anticipated Discharge Date Admission Date: December 01, 2021 Subjective Patient was seen and examined for f/u of fluid management Lying in bed with no acute distress He just got back for the insertion of tunnel cath he said that he is very hungry and he does not want to talk much until eating s omething He does not want to keep the tele monitor on Denies any chest pain, palpitation, dizziness and SOB Review of Systems Review of Systems: All systems reviewed & are unremarkable except as noted in Subjective Physical Exam Physical Exam: General- No acute distress Head- atraumatic Eyes- PERRL, EOMI, ENT- oropharynx clear Neck- supple, no JVD Lungs- clear to auscultation Heart- regular rhythm; no murmur Abdomen- normal bowel sounds, soft, nontender Extremities- no calf tenderness, +edema Neuro- alert, oriented x 3; PERRL, EOMI; no facial palsy; no dysarthria Skin- warm & dry Results & Data Results & Data ([facility]) Vital Signs (Past 12 Hours) Vital Signs Temp Pulse Pulse Pulse Resp BP BP 12/09/21 17:05 36.5 C 87 157/80 H 12/09/21 17:00 81 151/76 H 12/09/21 16:30 82 157/75 H 12/09/21 16:00 82 143/68 H 12/09/21 15:30 82 147/68 H 12/09/21 15:15 82 162/75 H 12/09/21 14:58 36.5 C 83 12/09/21 14:54 36.2 C L 83 18 125/64 12/09/21 13:46 78 18 144/77 H 12/09/21 13:31 78 18 137/88 12/09/21 13:16 81 14 134/82 12/09/21 13:11 81 14 137/80 12/09/21 13:05 79 14 130/85 12/09/21 13:00 79 14 132/77 12/09/21 12:55 79 14 156/82 H 12/09/21 13:10 80 14 143/76 H 12/09/21 12:50 81 18 147/84 H 12/09/21 08:00 12/09/21 09:00 82 12/09/21 10:32 36.6 C 77 20 157/73 H 12/09/21 08:03 36.8 C 20 BP Pulse Ox O2 Del Method O2 Flow Rate 12/09/21 17:05 12/09/21 17:00 12/09/21 16:30 12/09/21 16:00 12/09/21 15:30 12/09/21 15:15 12/09/21 14:58 12/09/21 14:54 94 Room Air 12/09/21 13:46 97 Room Air 12/09/21 13:31 97 Room Air 12/09/21 13:16 97 Room Air 12/09/21 13:11 99 Oxymask 4 12/09/21 13:05 99 Oxymask 4 12/09/21 13:00 99 Oxymask 4 12/09/21 12:55 99 Oxymask 4 12/09/21 13:10 99 Oxymask 4 12/09/21 12:50 99 Oxymask 4 12/09/21 08:00 Room Air 12/09/21 09:00 94 Room Air 12/09/21 10:32 93 Room Air 12/09/21 08:03 147/71 H 97 Room Air
[2021-12-09] MEDS: oxyCODONE HCL IR 5 MG TAB (IMMEDIATE RELEASE) PO PRN (19:30)
[2021-12-09] MEDS: METOPROLOL SUCC 50MG EXT REL TAB PO SCH (20:58)
[2021-12-10] MEDS: HEPARIN SOD 5,000 UNIT/0.5 ML VIAL SQ SCH (05:31)
[2021-12-10 06:54] LABS: Hematocrit (blood only) 29.4 % (40.1-51.0); Hemoglobin 9.7 g/dl (14.0-18.0); Mean Platelet Volume 9.6 fL (9.4-12.4); Platelet Count 197 K/uL (130-400); RDW Coefficient of Variation 13.6 % (11.5-14.5); RDW Standard Deviation 41.7 fL (36.4-46.3); Red Blood Count 3.46 M/uL (4.63-6.08); White Blood Count 7.44 K/ul (4.8-10.8)
[2021-12-10] MEDS: oxyCODONE HCL IR 5 MG TAB (IMMEDIATE RELEASE) PO PRN (07:57)
[2021-12-10] MEDS: ISOSORBIDE MONO EXTENDED REL 30 MG TABCR PO SCH (07:59)
[2021-12-10] MEDS: CLOPIDOGREL BISULFATE 75 MG TAB PO SCH (07:59)
[2021-12-10] MEDS: ASPIRIN 81 MG ECTAB PO SCH (07:59)
[2021-12-10] MEDS: amLODIPine BESYLATE 5 MG TAB PO SCH (07:59)
[2021-12-10 08:33] LABS: Calcium 8.8 mg/dl (8.5-10.1); Creatinine Clr Calc Pharmacy 33.4 ml/min; Est GFR (African American) 25.1 ml/min; Est GFR (Non-African American) 21.6 ml/min; Potassium 4.6 mmol/L (3.5-5.1)
[2021-12-10] MEDS: INSULIN ASPART PER UNIT SC SCH ×2 (09:02→12:56)
[2021-12-10] MEDS: LANTUS PER UNIT CHARGE SQ SCH (09:02)
[2021-12-10] MEDS ORDERED: SODIUM CHLORIDE 0.9% 1000ML 1,000 ML IV PRN (09:30)
--- NOTE | 2021-12-10 10:55 | Nephrology Progress Note ---
Date of Service December 10, 2021 Assessment & Plan Admission and Anticipated Discharge Date Admission Date: December 01, 2021 Subjective Assessment & Plan (1) Acute on chronic renal failure: Plan: Acute on advanced progressive chronic renal insufficiency in a patient with obstructive uropathy in past 6 mos, longstanding uncontrolled volume overload issues, sepsis likely from cellulitis, CK levels and history consistent with possible rhabdomyolysis, medication/care nonadherence, baseline nephrotic range proteinuria. >fluid limit 1.5L daily and <2 gm daily Na -dailyweight qAM >unremarkable renal u/s w/ resolution of spring R hydronephrosis -daily bmp He refused Temp cath over the weekend but then agreed with Tunnelled HD cath. had first dialysis yesterday low flow run Will do 3hrs dialysis today qb300 Qd 600 3 hrs and take 1.5 kilo off. He says he is going home today no matter what. Does not want rehab. Will send him on lasix 120 bid. he will get dialysis outpt once chair set up hopefully by tuesday. [facility] in center HD I spoke with Primary team and case manage about the plan. Subjective 71-year-old man with history of chronic systolic heart failure, CAD status post stents, valvular heart disease, CVA, hypertension, DM type II, CKD, chronic anemia who presented for feeling unwell and fever for the past 2 days. Still has massive edema. Some diuresis. Creat dropping but BUN rising. Diuretics resistant fluid overload. Review of Systems Review of Systems: Mild distress 3+ pitting edema + Lymphedema+ Chronic s tatic changes Physical Exam Physical Exam: General- oriented x 3, not in distress, speaks in sentences with no effort or accessory muscle use Eyes- anicteric Neck- no JVD Lungs- clear breath sounds bilaterally, no rales/wheezes Heart- normal rate, regular rhythm; no murmurs Abdomen- normal bowel sounds, nondistended, soft, nontender No CVA tenderness Extremities- 3+pretibial edema, no calf tenderness Neuro- alert, oriented x 3; no gross focal neurologic deficits Skin- warm & dry Results & Data ([facility]) Vital Signs (Past 12 Hours) Vital Signs Temp Pulse Resp BP Pulse Ox O2 Del Method 12/10/21 09:12 Room Air 12/10/21 07:52 36.8 C 74 18 147/57 H 95 Room Air 12/10/21 03:08 36.7 C 76 16 143/75 H 96 Room Air 12/09/21 23:54 37.1 C 71 16 118/70 92 Room Air
[2021-12-10] MEDS: BUMETANIDE 2 MG in SYRINGE 0 ML IV SCH (12:04)
[2021-12-10] MEDS: SENNA 8.6 MG TAB PO SCH (12:05)
--- NOTE | 2021-12-11 08:41 | Discharge Summary ---
Date of Service December 10, 2021 Admission HPI Per Admitting Provider History obtained from patient and records. Medical history significant for chronic systolic heart failure (EF 35 to 40%, TTE 2019), CAD status post stent, valvular heart disease (mild /MR/TR), history CVA, hypertension, hyperlipidemia, DM2 insulin requiring, CRI (baseline creatinine 2.9), chronic anemia (baseline hemoglobin 10 ), anxiety/mood disorder. Last confinement June 2021 for ARF on CKD secondary to obstructive uropathy/ureteral stone status post stent placement and stone removal. Serum creatinine back to baseline on discharge. Patient not feeling well for about 2 days. 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 Unable to get up from the floor for few hours. Patient had fever chills, no chest pain, usual shortness of breath. No head trauma, no LOC. Admits to fluid retention and weight gain because he has not been compliant with home diuretic Rx because he hates getting up to pee at night. Family called EMS. ER evaluation recommended but patient declined. Patient noted increased bilateral leg redness with intermittent fever chills. Denies abdominal pain, diarrhea, dysuria. No unusual cough symptoms. O2 sats 88 on room air upon EMS arrival at home Cefepime administered at the ER. 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 Admission Exam Per Admitting Provider General- No acute distress Head- atraumatic Eyes- PERRL, EOMI, ENT- oropharynx clear Neck- supple, no JVD Lungs- clear to auscultation Heart- regular rhythm; no murmur Abdomen- normal bowel sounds, soft, nontender Extremities- no calf tenderness, +edema Neuro- alert, oriented x 3; PERRL, EOMI; no facial palsy; no dysarthria Skin- warm & dry Principal Diagnosis Severe sepsis Acute on chronic systolic heart failure History of medication noncompliance Acute on chronic kidney disease CAD status post stent/CVA Valvular heart disease (mild /MR/TR) DM2 Chronic anemia Anxiety/mood disorder Discharge Exam General- No acute distress Head- atraumatic Eyes- PERRL, EOMI, ENT- oropharynx clear Neck- supple, no JVD Lungs- clear to auscultation Heart- regular rhythm; no murmur Abdomen- normal bowel sounds, soft, nontender Extremities- no calf tenderness, +edema Neuro- alert, oriented x 3; PERRL, EOMI; no facial palsy; no dysarthria Skin- warm & dry Discharge Data Allergies Allergy/AdvReac Type Severity Reaction Status Date / Time losartan Allergy Diarrhea Unverified 12/01/21 21:45 lisinopril AdvReac Severe Cough Verified 12/01/21 21:45 Consultations 12/01/21 21:31 ED Decision to Admit Stat 12/02/21 00:41 Consult Nephrology Routine 12/02/21 06:02 Consult Cardiology Routine 12/04/21 10:24 Consult Chicle Grinder Feeder Routine 12/04/21 15:56 Consult Psychiatry Routine 12/08/21 08:34 Consult Vascular Surgery Routine Procedures Performed Operation Date: 12/09/21 10:40 Actual Procedures p Insertion of Perm Catheter, Right Internal Jugular Approach, Ultrasound Localization of Right Internal Jugular Vein, Fluroscopy for Positioning Moderate Sedation [id number](Right) - Chris Wang MD Ordered Studies 12/01/21 23:01 US venous doppler LE BI Urgent 12/03/21 15:35 US renal/blad retro comp Urgent 12/09/21 11:36 EV cvc insrt tunnel wo 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 COMPARISON STUDY: Abdominal CT dated 06/17/2021. Renal ultrasound dated 06/18/2021. TECHNIQUE: Real-time, grayscale, and color flow sonography of the kidneys and bladder is performed. Images are reviewed in the transverse and longitudinal planes. FINDINGS: Kidneys: The kidneys demonstrate mild cortical atrophy. Echotexture is normal. The right kidney measures 11.0 cm in length and the left kidney measures 12.1 cm in length. There is no hydronephrosis. No shadowing renal calculi are identified. A cystic focus in the right kidney measured 3.1 cm. There is no sonographic evidence of contour deforming renal mass lesion. No perinephric fluid is identified. Bladder: The partially decompressed bladder is grossly unremarkable. Ureteral jets were not seen. IMPRESSION: 1. The kidneys demonstrate cortical atrophy and are without hydronephrosis. 2. The bladder is decompressed and grossly unremarkable ACT 112: Negative or not required by law. Electronically signed by: Ashvin Carter M.D. 12/03/2021 3:21 PM Dictated:12/03/211509 Transcribed: 12/03/211509 US venous doppler LE BI CLINICAL HISTORY: leg swelling TECHNIQUE: Bilateral lower extremity real-time compression venous ultrasound with Color Doppler imaging. Utilizing real-time ultrasonic imaging multiple real time high-resolution ultrasonic images with compression and noncompression maneuvers of the deep venous system in addition to color doppler imaging were performed from the common femoral vein through the proximal calf veins. COMPARISON: None available at the time of this dictation. FINDINGS: Currently there is normal compressibility of the deep venous system from the common femoral vein through the proximal calf veins. Subcutaneous edema is noted in the bilateral calf. Incidental note is made of right inguinal nodes with preserved fatty kirstin measuring up to 2.7 x 1.5 x 2.2 cm. Impression: No evidence of deep venous thrombus. ACT 112: Negative or not required by law. Electronically signed by: Emeka Hebert M.D. 12/02/2021 8:25 AM Dictated:12/02/21823 Transcribed: 12/02/21823 SINGLE VIEW CHEST CLINICAL HISTORY: Sepsis. FINDINGS: An AP, portable, upright chest radiographs are compared to study dated 12/23/2019. The examination is degraded by portable technique and patient rotation. The heart is enlarged noting atherosclerotic calcification of the thoracic aorta. There is mild pulmonary vascular congestion. There is bibasilar scarring/atelectasis. No airspace consolidation or large pleural effusion is identified. No pneumothorax is seen. The skeletal structures are osteopenic. The bony thorax is grossly intact. Advanced arthritic change is seen in the right shoulder. IMPRESSION: Cardiomegaly with pulmonary vascular congestion. ACT 112: Negative or not required by law. Electronically signed by: Ashvin Carter M.D. 12/01/2021 8:41 PM Dictated:12/01/212039 Transcribed: 12/01/212039 Hospital Course (1) Acute hypoxemic respiratory failure: Severe sepsis SIRS plus GRIFFIN on CKD Secondary to bilateral LE cellulitis On presentation he had leucocytosis and elevated procal Urine cultures - probable contamination with skin lonnie XR did not show opacities Fever and leukocytosis are resolved Completed the course of doxycycline 7 days treatment Doppler negative for DVT Acute on chronic systolic heart failure Possible cardiorenal syndrome History of medication noncompliance Acute on chronic kidney disease Elevated trop likely due to decompensated heart failure and GRIFFIN on CKD. No angina. ?Demand ischemia Cardiology recs appreciated Vascular surgery on board - S/P Insertion of Perm Catheter (12/09/21) by Dr. Wang Nephrology on board- Had HD today to manage fluid overload and tolerated it ( first HD) Continue bumex per nephro Monitor I/O, daily weight. TTE noted EF 45-50%, abnormal septal wall motion consistent with conduction delay and moderate hypokinesis of apex, otherwise normal wall motion, Mild /MR/TR Pt was in HD today, but requested to stop dialysis because the machine was BP and he was not feeling comfortable then he asked to cancel HD He requested to be discharged and follow up with his nephrology and PCP. I explained to him that he needed to get HD and adult protective caseworker is working on a facility for HD and we don't have a chair yet. He said that he would sign AMA since I don't want to release him Case discussed with Nephrology that recommended to discharge on Lasix 120mg BID since pt continues to have good urine output Pt understood the risk of leaving AMA such as volume overload, SOB, worsening renal function, multiple organs failure and even CAD status post stent/CVA Valvular heart disease (mild /MR/TR) DM2 insulin requiring, A1c 8.5 on 12/05/21 Chronic anemia Monitor Anxiety/mood disorder Had reported suicidal thoughts on evening of 12/04/21 Patient currently denies that. Psych evaluation appreciated Possible adjustment with depressed mood DVT ppx- hep sq Disposition Pt signed AMA Total Time Total Time Spent Total Time Spent (In Minutes): 35 minutes Discharge Plan Discharge Items Patient Disposition: Against Medical Advice Reason For Visit: CARDIORENAL SYNDROME, SEPSIS Activity: Resume your previous activity Non-emergency contact: Primary Care Provider and Anatomic Pathology Assistant Follow-up/Referrals: Ermias Zarate DO [Primary Care Provider] - (Date & Time 12/17/2021 11:20 AM Provider Ermias Zarate DO Department [facility] ) Diet Comment: Follow a low potassium diet Addtl Icu Clerk Provider Instructions: Follow up with your primary care provider within 1 week 12/17/2021 @ 11:20 AM Ermias Zarate DO Department [facility] Follow up with your nephrology within 1 week Since you signed against medical advice, there is risk of fluid overload, shortness of breath, worsening renal kidney function and even please seek urgent medical attention if you develop any shortness of breath or sign of fluid overload Anatomic Pathology Assistant recommended to increase the Lasix to 120 mg twice a day Amlodipine decreased to 5mg once daily Cardiology recommended to continue Isosorbide mononitrate 30mg daily Fall precaution Pending Studies at Discharge: No Stand-Alone Forms: My [facility] [email or web address], Smoking Cessation Medications and DC Order Prescriptions: New amlodipine [Norvasc] 5 mg Tablet 5 mg PO QAM Qty: 30 0RF isosorbide mononitrate 30 mg Tablet Extended Release 24 Hr 30 mg PO QAM Qty: 30 0RF Continued oxycodone 5 mg tablet 5 mg PO HS PRN (Reason: Pain, Severe) aspirin 81 mg Tablet,Delayed Release (Dr/Ec) 81 mg PO QAM cholecalciferol (vitamin D3) [Vitamin D3] 25 mcg (1,000 unit) Tablet 75 mcg PO DAILY atorvastatin 80 mg tablet 80 mg PO QAM metoprolol succinate 50 mg tablet extended release 24 hr 50 mg PO QPM clopidogrel 75 mg tablet 75 mg PO QAM Novolin R Regular U-100 Insuln 100 unit/mL solution 20 unit subcut AC Novolin N NPH U-100 Insulin 100 unit/mL suspension 100 unit SUBCUT UD Rx Instructions: 27 Units at noon and midnight. gabapentin 300 mg capsule 300 mg PO TID Rx Instructions: ordered routine but patient states on takes as needed...claims it doesnt work anyhow sildenafil 50 mg Tablet 50 mg PO DAILY PRN (Reason: Erectile Dysfunction) Changed furosemide 40 mg tablet 120 mg PO BID 30 Days Qty: 180 0RF Discontinued amlodipine 10 mg tablet 10 mg PO QAM Discharge Orders: Left Against Medical Advice (Routine); Ordered 12/10/21 Ordered By: Dee Dee Shrestha/Other Patient Handouts: Kidney Disease Calcium Phosphorus, Kidney Disease: Limiting Fluids, Kidney Disease: Eating Less Sodium, Low Potassium Diet Dc, ED Diet for Chronic Kidney Disease Admission Data Admit Date/Time: 12/01/21 23:05 Attending Provider: Dee Dee Cortez Admit Provider: Arnoldo Hernandez Primary Care Provider: Ermias Zarate Other Providers: [facility] ; Charley Darling I. ; Arnoldo Hernandez ; Enma Nguyen ; Callum Johnson ; Sophy Olivares ; Ita Hobson ; Deysi Thacker ; Chyna Prince ; Harish Abarca ; Jignesh Toussaint ; Charan Lopez ; Sina Babin ; Daniel Weinstein ; Joe Duran ; Dalila Mariano ; Shona Hilario ; Hawa Oates ; Reynold Feliciano ; Suraj Harvey ; Meeta Mahan ; Jael Campos ; Amanda Patel ; Chris Wang
== END 2021-12-10 14:31 | disposition left against medical advice (07) | DRG 871 ==
LOC: ED 18:40 → 2S 23:05 → SUATTDRO 23:05 → 2S 12-02 00:13

== ENCOUNTER 2024-06-25 11:35 | Inpatient (IN) ==
[2024-06-25 12:36] LABS: Basophils # (auto) 0.06 K/uL (0.00-0.20); Basophils % (auto) 0.7 %; Eosinophils # (auto) 0.69 K/uL (0.00-0.50); Eosinophils % (auto) 8.1 %; Hematocrit (blood only) 35.6 % (42.0-52.0); Hemoglobin 11.7 g/dl (14.0-18.0); Immature Granulocytes # (auto) 0.04 K/uL (0.01-0.20); Immature Granulocytes % (auto) 0.5 %; Lymphocytes # (auto) 1.99 K/uL (1.20-3.40); Lymphocytes % (auto) 23.5 %; Mean Corpuscular Hemoglobin 32.2 pg (25.0-34.0); Mean Corpuscular Hgb Conc 32.9 g/dL (32.0-36.0); Mean Corpuscular Volume 98.1 fL (80.0-100.0); Mean Platelet Volume 10.6 fL (9.4-12.4); Monocytes # (auto) 0.86 K/uL (0.11-0.59); Monocytes % (auto) 10.2 %; Neutrophils # (auto) 4.83 K/uL (1.40-6.50); Platelet Count 169 K/uL (130-400); RDW Coefficient of Variation 14.1 % (11.5-14.5); RDW Standard Deviation 50.9 fL (36.4-46.3); Red Blood Count 3.63 M/uL (4.70-6.10); White Blood Count 8.47 K/ul (4.8-10.8)
--- NOTE | 2024-06-25 12:38 | Emergency Department Note ---
Impression & Plan Hypotension, Acute hyperkalemia ED Provider Note NAME: JOVANY GLOVER III AGE: 73 SEX: M : 1950 ARRIVES VIA: Walk-In INFORMANT: Patient, ED PROVIDER(S): Junaid Van MD CHIEF COMPLAINT: Hypotension, bradycardia HPI: This is a 73-year-old male presenting for hypotension/bradycardia. Patient notes that he went to dialysis this morning and was told to come to the ER as he was having low blood pressure and low pulse rate. He notes feeling somewhat achy and short of breath this morning. He notes over the past few weeks he has not had increasing shortness of breath, with exertion specifically. He does not lie flat due to shoulder pain otherwise. No chest pain is noted. He reports no fevers. No diarrhea. He is on a blood thinner, clopidogrel and otherwise takes metoprolol. ROS: See above HPI for pertinent positives & negatives. A total of 10 systems reviewed and were otherwise negative. PAST MEDICAL HISTORY: See Below PAST SURGICAL HISTORY: See Below FAMILY HISTORY: See Below SOCIAL HISTORY: See Below HOME MEDICATIONS: See Below ALLERGIES: See Below VITALS: See Below PHYSICAL EXAMINATION: General: Chronically unwell appearing Head: Normocephalic and atraumatic Eyes: Normal inspection, extraocular muscles intact Ear, nose, throat: Normal external exam Neck: Normal range of motion Respiratory: Crackles at the bases Cardiovascular: Regular rate/rhythm, no murmur GI: soft, nontender, no guarding or rebound Extremities: nontender, moves all extremities Neuro: The patient awake and alert, appropriately conversive, no focal deficits, symmetric faces Skin: Warm, dry, and intact MEDICAL DECISION MAKING: This is 73-year-old male present for hypotension/bradycardia. Patient is currently mildly hypotensive with blood pressure between 80 and 90 systolic. He otherwise was told he was bradycardic however his heart rate on monitor is in the 90s. He is currently in bigeminy pattern which could explain the discrepancy between the monitor strip here and outpatient pulse measurements. -ECG independently interpreted by me with sinus rhythm and bigeminy pattern with first-degree AV block, rate 99, right bundle branch block, normal QTc, no ST segment elevations consistent with STEMI criteria -Chest Xray independently interpreted by me showing no pneumothorax, focal opacity, or pleural effusions. -No cytosis, stable anemia is noted. Otherwise patient's electrolytes show slight hypokalemia, hypochloremia and creatinine of 8.39. 3 is consistent with patient's ESRD. -This time patient still hypotensive and likely could not get dialysis currently. He will require admission. He did have need for cardiac workup in the outpatient setting due to this borderline hypotension has been noted outpatient. -Discussed with [facility] service for admission of needs of dialysis/cardiac workup. Differential diagnosis: Sepsis, fluid overload, hypovolemia, CHF Independent History obtained from: Daughter [facility] interpreted by me: ECG: See above Cardiac Monitoring: An order was placed for continuous cardiac monitoring. The monitor shows a rate of 63 with sinus rhythm. Past Med/Surg History Problem List (Updated 06/25/24 @ 18:40 by Junaid Van MD) Acute hyperkalemia (Acute) Hypotension (Acute) ESRD (end stage renal disease) on dialysis Hypotension Chronic acquired lymphedema Hypertension Dyslipidemia, goal LDL below 70 ASCVD (arteriosclerotic cardiovascular disease) Ischemic cardiomyopathy Adjustment disorder with mixed disturbance of emotions and conduct Hyperkalemia Diabetic neuropathy Dyslipidemia Diabetes mellitus type 2 with complications Hypertensive heart disease Medical History (Updated 06/25/24 @ 18:40 by Junaid Van MD) Chronic venous insufficiency of lower extremity Adjustment disorder with depressed mood Anemia CHF (congestive heart failure) Morbid obesity with BMI of 40.0-44.9, adult Suicidal ideation CAD (coronary artery disease) Ischemic cardiomyopathy EF 35-40% Cerebrovascular disease stroke 2013 Bifascicular bundle branch block Acute non-ST segment elevation myocardial infarction Kidney stone Surgical History Stented coronary artery JOAO placement to the Circumflex, Proximal LAD and mid LAD with a CARBURETOR EXPERT of his RCA History of tonsillectomy H/O knee surgery S/P surgical manipulation of ankle joint Social History Smoking Status: Never smoker Second Hand Exposure: No; Do You Dip or Chew Tobacco: No; Hx Alcohol Use: No Hx Substance Use: No Preferred Language: Cuban Communication Ability: Effective Visual Impairment: No Limitations Hearing Ability: Normal Venipuncturist Required: No Beliefs That Will Affect Care: None marital status: Current Living Situation: Alone Current Living Situation Comment: alone in apartment building current occupational status: retired current occupation: Retired How many Children do You have: 3 Other Information That Helps Us Care for You: No Feels Safe at Home: Yes Safety Concerns: Feels Safe At This Time Diet: diabetic Diet Comment: Dialysis, caffeine: No Assistive Devices: Glasses Allergies Allergies Allergy/AdvReac Type Severity Reaction Status Date / Time losartan Allergy Diarrhea Unverified 06/25/24 14:33 lisinopril AdvReac Severe Cough Verified 06/25/24 14:33 Home Meds Home Medications Medication Instructions Recorded Confirmed atorvastatin 80 mg tablet 80 mg PO QAM 06/17/21 06/25/24 clopidogrel 75 mg tablet 75 mg PO QAM 06/17/21 06/25/24 oxycodone 5 mg tablet 10 mg PO HS PRN Pain, Severe 12/01/21 06/25/24 insulin regular human 100 unit/mL 30 unit subcut AC 12/31/21 06/25/24 injection solution (Novolin R Regular U-100 Insulin) calcium acetate(phosphat bind) 667 667 mg PO AC 06/25/24 06/25/24 mg tablet gabapentin 300 mg capsule 300 mg PO DAILY PRN Pain in feet 06/25/24 06/25/24 metoprolol succinate 25 mg 12.5 mg PO QAM 06/25/24 06/25/24 tablet,extended release 24 hr Results & Data (ED) Vital Signs Vital Signs - 24 hr 06/25/24 11:38 06/25/24 12:04 06/25/24 12:27 Temperature 36.4 C L Temperature Source Temporal Artery Scan Pulse Rate 56 L 95 H Pulse Rate [Right Brachial] Pulse Rate from SpO2 Sensor Pulse Rhythm [Right Brachial] Pulse Strength Normal Pulse Strength [Right Brachial] Respiratory Rate 16 Respiratory Effort / Characteristics Non-Labored Spontaneous Respiratory Depth Normal Respiratory Pattern Regular Blood Pressure 92/53 L Blood Pressure [Left Arm] Blood Pressure Mean 66 Blood Pressure Mean [Left Arm] Blood Pressure Position Sitting Blood Pressure Position [Left Arm] Pulse Oximetry 93 Oxygen Delivery Method Room Air Room Air Sepsis Recent Fever Within 48 Hours No Sepsis New/Unexplained Change in Mental Status No Sepsis Action Taken by Nursing No Action Required 06/25/24 12:33 06/25/24 12:48 06/25/24 13:02 Temperature Temperature Source Pulse Rate 95 H 89 Pulse Rate [Right Brachial] Pulse Rate from SpO2 Sensor 62 30 L Pulse Rhythm [Right Brachial] Pulse Strength Pulse Strength [Right Brachial] Respiratory Rate 21 16 Respiratory Effort / Characteristics Respiratory Depth Respiratory Pattern Blood Pressure 84/52 L Blood Pressure [Left Arm] Blood Pressure Mean 54 Blood Pressure Mean [Left Arm] Blood Pressure Position Blood Pressure Position [Left Arm] Pulse Oximetry 93 90 Oxygen Delivery Method Sepsis Recent Fever Within 48 Hours Sepsis New/Unexplained Change in Mental Status Sepsis Action Taken by Nursing 06/25/24 13:06 06/25/24 13:21 06/25/24 13:48 Temperature Temperature Source Pulse Rate 89 91 H Pulse Rate [Right Brachial] Pulse Rate from SpO2 Sensor 65 Pulse Rhythm [Right Brachial] Pulse Strength Pulse Strength [Right Brachial] Respiratory Rate 22 16 Respiratory Effort / Characteristics Respiratory Depth Respiratory Pattern Blood Pressure Blood Pressure [Left Arm] 86/60 L Blood Pressure Mean Blood Pressure Mean [Left Arm] 68 Blood Pressure Position Blood Pressure Position [Left Arm] Sitting Pulse Oximetry 94 Oxygen Delivery Method Sepsis Recent Fever Within 48 Hours Sepsis New/Unexplained Change in Mental Status Sepsis Action Taken by Nursing 06/25/24 14:00 06/25/24 14:30 06/25/24 14:31 Temperature Temperature Source Pulse Rate 89 91 H Pulse Rate [Right Brachial] Pulse Rate from SpO2 Sensor Pulse Rhythm [Right Brachial] Pulse Strength Pulse Strength [Right Brachial] Respiratory Rate 16 19 Respiratory Effort / Characteristics Respiratory Depth Respiratory Pattern Blood Pressure 95/40 L Blood Pressure [Left Arm] Blood Pressure Mean 55 Blood Pressure Mean [Left Arm] Blood Pressure Position Blood Pressure Position [Left Arm] Pulse Oximetry 90 Oxygen Delivery Method Sepsis Recent Fever Within 48 Hours Sepsis New/Unexplained Change in Mental Status Sepsis Action Taken by Nursing 06/25/24 15:00 Temperature Temperature Source Pulse Rate Pulse Rate [Right Brachial] 94 H Pulse Rate from SpO2 Sensor Pulse Rhythm [Right Brachial] Regular Pulse Strength Pulse Strength [Right Brachial] Normal Respiratory Rate 19 Respiratory Effort / Characteristics Non-Labored Respiratory Depth Normal Respiratory Pattern Regular Blood Pressure Blood Pressure [Left Arm] 95/40 L Blood Pressure Mean Blood Pressure Mean [Left Arm] 58 Blood Pressure Position Blood Pressure Position [Left Arm] Sitting Pulse Oximetry 95 Oxygen Delivery Method Room Air Sepsis Recent Fever Within 48 Hours Sepsis New/Unexplained Change in Mental Status Sepsis Action Taken by Nursing Laboratory Data 06/25/24 11:58 06/25/24 11:58 Lab Results 06/25/24 06/25/24 Range/Units 11:58 12:33 WBC 8.47 (4.8-10.8) K/ul RBC 3.63 L (4.70-6.10) M/uL Hgb 11.7 L (14.0-18.0) g/dl Hct 35.6 L (42.0-52.0) % MCV 98.1 (80.0-100.0) fL MCH 32.2 (25.0-34.0) pg MCHC 32.9 (32.0-36.0) g/dL RDW Std Deviation 50.9 H (36.4-46.3) fL RDW Coeff of Nasim 14.1 (11.5-14.5) % Plt Count 169 (130-400) K/uL MPV 10.6 (9.4-12.4) fL Immature Gran % (Auto) 0.5 % Neut % (Auto) 57.0 % Lymph % (Auto) 23.5 % Clark % (Auto) 10.2 % Eos % (Auto) 8.1 % Baso % (Auto) 0.7 % Neut # (Auto) 4.83 (1.40-6.50) K/uL Lymph # (Auto) 1.99 (1.20-3.40) K/uL Clark # (Auto) 0.86 H (0.11-0.59) K/uL Eos # (Auto) 0.69 H (0.00-0.50) K/uL Baso # (Auto) 0.06 (0.00-0.20) K/uL Immature Gran # (Auto) 0.04 (0.01-0.20) K/uL Sodium 136 (136-145) mmol/L Potassium 5.2 H (3.5-5.1) mmol/L Chloride 90 L (98-107) mmol/L Carbon Dioxide 32 (21-32) mmol/L Anion Gap 14 H (3-11) BUN 39 H (6-23) mg/dl Creatinine 8.29 H* (0.6-1.4) mg/dl Est Cr Clr Drug Dosing Not Reportable eGFR 6.28 BUN/Creatinine Ratio 4.7 L (10-20) Glucose 184 H (70-99(Fasting)) mg/dl Calcium 9.3 (8.6-10.3) mg/dl Total Bilirubin 0.7 (0.2-1.0) mg/dl Direct Bilirubin 0.2 (0-0.2) mg/dl AST 10 L (13-39) U/L ALT 11 (7-52) U/L Alkaline Phosphatase 104 (34-104) U/L Total Protein 7.6 (6.0-8.3) gm/dl Albumin 4.2 (3.4-5.0) gm/dl Adenovirus (PCR) Not Detected (NotDetected) B. pertussis DNA (PCR) Not Detected (NotDetected) B.parapertussis DNA PCR Not Detected (NotDetected) C. pneumoniae DNA (PCR) Not Detected (NotDetected) Coronavirus OC43 (PCR) Not Detected (NotDetected) Coronavirus HKU1 (PCR) Not Detected (NotDetected) Coronavirus 229E (PCR) Not Detected (NotDetected) SARS-CoV-2 (PCR) Not Detected (NotDetected) Coronavirus NL63 (PCR) Not Detected (NotDetected) Human Metapneumovir PCR Not Detected (NotDetected) Influenza Type A (PCR) Not Detected (NotDetected) Influenza Type B (PCR) Not Detected (NotDetected) M. pneumoniae (PCR) Not Detected (NotDetected) Parainfluenza 1 (PCR) Not Detected (NotDetected) Parainfluenza 2 (PCR) Not Detected (NotDetected) Parainfluenza 3 (PCR) Not Detected (NotDetected) Parainfluenza 4 (PCR) Not Detected (NotDetected) RSV (PCR) Not Detected (NotDetected) Entero/Rhino (PCR) Not Detected (NotDetected) Administered Medications Insulin Aspart (Insulin Aspart Per Unit Charge) 0 units SC ACHS JAYA Stop: 07/25/24 16:29 Last Admin: 06/25/24 17:11 Dose: 10 units Documented By: SHAKIRA Co-signed By: JANIA Discontinued Medications Miscellaneous (Patient's Height &/Or Weight Needed) 1 each N/A Q10M JAYA Stop: 07/25/24 15:59 Last Admin: 06/25/24 18:44 Dose: Not Given Documented By: Admin: 06/25/24 18:44 Dose: Not Given Documented By: Admin: 06/25/24 18:44 Dose: Not Given Documented By: Admin: 06/25/24 18:44 Dose: Not Given Documented By: Admin: 06/25/24 18:44 Dose: Not Given Documented By: Admin: 06/25/24 18:44 Dose: Not Given Documented By: Admin: 06/25/24 18:44 Dose: Not Given Documented By: Admin: 06/25/24 18:44 Dose: Not Given Documented By: Admin: 06/25/24 17:22 Dose: Not Given Documented By: Admin: 06/25/24 17:22 Dose: Not Given Documented By: SHAKIRA Imaging Data Radiologist's Impression: Chest X-Ray 06/25/24 12:16 XR chest 1V portable CLINICAL HISTORY: fluid overload, CHF, PNA COMPARISON STUDY: 12/01/2021 FINDINGS: Right dialysis catheter tip is at the cavoatrial junction. There is stable mild cardiomegaly without pulmonary vascular congestion. Inspiration is shallow. There is mild stranding opacity at the right lung base. No other consolidation or pleural effusion. No pneumothorax. IMPRESSION: Likely mild atelectasis right lung base. No other acute findings seen. ACT 112: Negative or not required by law. Electronically signed by: Harish Camarillo M.D. 06/25/2024 12:44 PM Discharge Plan Visit Data Chief Complaint: Bradycardia Stated Complaint: DIALYSIS, BRADYCARDIA 40/50BPM ED Provider: Junaid Van Discharge Problem: Hypotension, Acute hyperkalemia Patient Disposition: Admitted As Inpatient Discharge Instructions Interventions: ED Discharge Assessment Last Done: 06/25/24 18:22 Discharge Problem: Hypotension Qualifiers: Hypotension type: other hypotension type Qualified Code(s): I95.89 - Other hypotension
--- NOTE | 2024-06-25 12:45 | XRay Report ---
XR chest 1V portable CLINICAL HISTORY: fluid overload, CHF, PNA COMPARISON STUDY: 12/01/2021 FINDINGS: Right dialysis catheter tip is at the cavoatrial junction. There is stable mild cardiomegal y without pulmonary vascular congestion. Inspiration is shallow. There is mild stranding opacity at t he right lung base. No other consolidation or pleural effusion. No pneumothorax. IMPRESSION: Likely mild atelectasis right lung base. No other acute findings seen. ACT 112: Negative or not required by law. Electronically signed by: Harish Camarillo M.D. 06/25/2024 12:44 PM
[2024-06-25 13:23] LABS: Alanine Aminotransferase 11 U/L (7-52); Albumin Level 4.2 gm/dl (3.4-5.0); Alkaline Phosphatase 104 U/L (34-104); Anion Gap 14 (3-11); Aspartate Aminotransferase 10 U/L (13-39); BUN Creatinine Ratio 4.7 (10-20); Bilirubin Direct 0.2 mg/dl (0-0.2); Bilirubin,Total 0.7 mg/dl (0.2-1.0); Blood Urea Nitrogen 39 mg/dl (6-23); Calcium 9.3 mg/dl (8.6-10.3); Carbon Dioxide 32 mmol/L (21-32); Chloride 90 mmol/L (98-107); Glucose 184 mg/dl (70-99(Fasting)); Potassium 5.2 mmol/L (3.5-5.1); Sodium 136 mmol/L (136-145); Total Protein 7.6 gm/dl (6.0-8.3)
[2024-06-25 13:32] LABS: Adenovirus PCR Not Detected (NotDetected); Bordetella parapertussis PCR Not Detected (NotDetected); Bordetella pertussis PCR Not Detected (NotDetected); Chlamydia pneumoniae PCR Not Detected (NotDetected); Coronavirus 229E PCR Not Detected (NotDetected); Coronavirus CoV-2 (COVID19)PCR Not Detected (NotDetected); Coronavirus HKU1 PCR Not Detected (NotDetected); Coronavirus NL63 PCR Not Detected (NotDetected); Coronavirus OC43PCR Not Detected (NotDetected); Human Metapneumovirus PCR Not Detected (NotDetected); Influenza A PCR Not Detected (NotDetected); Influenza B PCR Not Detected (NotDetected); Mycoplasma pneumoniae PCR Not Detected (NotDetected); Parainfluenza Virus 1 PCR Not Detected (NotDetected); Parainfluenza Virus 2 PCR Not Detected (NotDetected); Parainfluenza Virus 3 PCR Not Detected (NotDetected); Parainfluenza Virus 4 PCR Not Detected (NotDetected); Respiratory Syncytial VirusPCR Not Detected (NotDetected); Rhinovirus/Enterovirus PCR Not Detected (NotDetected)
[2024-06-25] MEDS ORDERED: CARBOHYDRATES FOR HYPOGLYCEMIA PO PRN (15:56)
[2024-06-25] MEDS ORDERED: GLUCOSE 10 TAB/TUBE PO PRN (15:56)
[2024-06-25] MEDS ORDERED: DEXTROSE 50% 50 ML SYRINGE IV PRN (15:56)
[2024-06-25] MEDS ORDERED: GLUCAGON FOR INJ 1 MG VIAL SQ PRN (15:56)
[2024-06-25] MEDS ORDERED: GLUCOSE 40% GEL 15 GM TUBE PO PRN (15:56)
--- NOTE | 2024-06-25 16:15 | History & Physical Report ---
<Statement entered by Erick Charles, DO - 06/25/24 17:43> I have seen and examined the patient and have discussed the case with the advance practice provider. I have reviewed the advanced practitioner's documentation, and I agree with, and take responsibility for that plan of care. Patient sitting in chair when evaluated in the ED. No chest pain or shortness of breath currently. Reviewed outside EMR, notes from nephrology, communications from nephrology. Patient has been having issues with lower blood pressure at hemodialysis for a few weeks. Reviewed plan of care as outlined below I spent a total of 14 minutes coordinating, documenting, and providing care for this patient excluding time spent by another provider/QHP. Date of Service June 25, 2024 Assessment & Plan (1) Hypotension: (2) ESRD (end stage renal disease) on dialysis: (3) Diabetes mellitus type 2 with complications: (4) ASCVD (arteriosclerotic cardiovascular disease): (5) Diabetic neuropathy: (6) Dyslipidemia, goal LDL below 70: Plan This is a 73 y/o male with insulin-requiring DM2, ESRD on HD, CAD s/p cardiac stent, hx HTN, prior CVA, hyperlipidemia, depression, CHF, and other history as outlined below who presents today from dialysis with low blood pressure and possible bradycardia. Work-up in the ED included EKG, which I personally reviewed, showing frequent PVCs in a bigeminy pattern. Upon my evaluation in the ED, pt was continue in a pattern of trigeminy on the monitor. His BPs in the ED have been in the 80s-90s systolic but pt reports he is not having symptoms. He currently feels at his baseline. He was referred for admission for further evalu ation and possible dialysis. #Hypotension - asymptomatic #ESRD on HD - Admit to [facility] telemetry - monitor rhythm overnight, repeat EKG in AM - ECHO - Hold on cardiology evaluation for now pending ECHO results and clinical course overnight, has outpatient f/u scheduled for 07/12 - Consult nephrology for HD while admitted - Hold metoprolol and monitor BP - pt reports that he did not take today and has been taking sporadically at home - Labs in the AM - CBC, BMP #Insulin-requiring DM2 - Basal insulin with sliding scale ordered - Diabetic diet - A1c in AM - BSG ACHS #Hypertension - currently having issues with hypotension so medications on hold #ASCVD #Dyslipidemia - Holding metoprolol as above - Continue clopidogrel and statin #Diabetic neuropathy - chronic, stable - Continue prn gabapentin and oxycodone Pt seen and evaluated with collaborating physician, Dr. Charles. Plan of care discussed and as outlined above. Daughter updated at bedside - all questions answered. Code status: DNR/DNI DVT prophylaxis: subQ heparin I spent a total of 78 minutes coordinating, documenting, and providing care for this patient excluding time spent in the performance of separately billed services or time spent by another provider/QHP. Mar Oseguera PA-C History of Present Illness Chief Complaint: low blood pressure at dialysis Primary Care Provider: Itz Niño DO This is a 73 y/o male with insulin-requiring DM2, ESRD on HD, CAD s/p cardiac stent, hx HTN, prior CVA, hyperlipidemia, depression, CHF, and other history as outlined below who presents today from dialysis with low blood pressure and possible bradycardia. Pt reports that this morning, before HD, he felt achy, tired, and mildly SOB but by the time he got to dialysis and settled, he was feeling back to his baseline. However, when the nurses took his vital signs, his BP was noted to be in the 80s and pulse rate was reported in the 30s so patient was referred to the ED for evaluation. His outpatient [facility] records were reviewed and note from nephrology earlier this month mentions BPs have been low in the 90s to 100s so he is to have an ECHO on 07/05 and f/u with cardiology on 07/12 (previously seen but lost to follow up in 2021). Pt reports that episodes of low BP have been asymptomatic. He reports feeling at baseline presently. He h as noted progressive dyspnea on exertion over the last several weeks to months, noting that it takes less exertion than it did previously for him to feel winded. He reports dyspnea resolves after resting for 4-5 minutes. He admits to not always following the recommend diet for being diabetic and on HD. His metoprolol dose was recently halved due to these concerns of low BP, but pt reports he has not been taking this medication consistently anyway as he thought it might be making his BP worse. He denies chest pain, palpitations, syncope, recent illness, vomiting, change in bowel habits. He still makes urine described as 100 ml typically 4-5x/day, which is decreased from when he first started HD. Allergies Allergy/AdvReac Type Severity Reaction Status Date / Time losartan Allergy Diarrhea Unverified 06/25/24 14:33 lisinopril AdvReac Severe Cough Verified 06/25/24 14:33 Home Medications Medication Instructions Recorded Confirmed Type atorvastatin 80 mg tablet 80 mg PO QAM 06/17/21 06/25/24 History clopidogrel 75 mg tablet 75 mg PO QAM 06/17/21 06/25/24 History oxycodone 5 mg tablet 10 mg PO HS PRN Pain, Severe 12/01/21 06/25/24 History insulin regular human 100 unit/mL 30 unit subcut AC 12/31/21 06/25/24 History injection solution (Novolin R Regular U-100 Insulin) calcium acetate(phosphat bind) 667 667 mg PO AC 06/25/24 06/25/24 History mg tablet gabapentin 300 mg capsule 300 mg PO DAILY PRN Pain in feet 06/25/24 06/25/24 History metoprolol succinate 25 mg 12.5 mg PO QAM 06/25/24 06/25/24 History tablet,extended release 24 hr Past Med/Surg History Problem List (Updated 06/25/24 @ 17:20 by Pratibha Oseguera PA-C) ESRD (end stage renal disease) on dialysis Hypotension Chronic acquired lymphedema Hypertension Dyslipidemia, goal LDL below 70 ASCVD (arteriosclerotic cardiovascular disease) Ischemic cardiomyopathy Adjustment disorder with mixed disturbance of emotions and conduct Hyperkalemia Diabetic neuropathy Dyslipidemia Diabetes mellitus type 2 with complications Hypertensive heart disease Medical History (Updated 06/25/24 @ 17:20 by Pratibha Oseguera PA-C) Chronic venous insufficiency of lower extremity Adjustment disorder with depressed mood Anemia CHF (congestive heart failure) Morbid obesity with BMI of 40.0-44.9, adult Suicidal ideation CAD (coronary artery disease) Ischemic cardiomyopathy EF 35-40% Cerebrovascular disease stroke 2013 Bifascicular bundle branch block Acute non-ST segment elevation myocardial infarction Kidney stone Surgical History Stented coronary artery JOAO placement to the Circumflex, Proximal LAD and mid LAD with a [employer] of his RCA History of tonsillectomy H/O knee surgery S/P surgical manipulation of ankle joint Social History Smoking Status: Never smoker Second Hand Exposure: No; Do You Dip or Chew Tobacco: No; Hx Alcohol Use: No Hx Substance Use: No Preferred Language: Italian Communication Ability: Effective Visual Impairment: No Limitations Hearing Ability: Normal Practice Consultant Required: No Beliefs That Will Affect Care: Advent Advent Beliefs: Muslim marital status: Current Living Situation: Alone Current Living Situation Comment: alone in apartment building current occupational status: retired current occupation: Retired How many Children do You have: 3 Feels Safe at Home: Yes Diet: diabetic Diet Comment: Dialysis, caffeine: No Assistive Devices: Cane and Scooter/Electric Scooter Review of Systems Review of Systems: All systems reviewed & are unremarkable except as noted in Subjective Physical Exam Physical Exam: General: awake, alert, NAD HEENT: no scleral icterus, moist oral mucosa Neck: supple, trachea midline Heart: regular but frequent ectopic beats Lungs: CTA bilaterally Abdomen: soft, +BS Extremities: chronic stasis changes bilateral LE Neurologic: Ox3, no confusion or dysarthria, moving all extremities, no focal deficits. Results & Data Results & Data Vital Signs (Past 12 Hours) Vital Signs Temp Pulse Pulse Resp BP BP Pulse Ox 06/25/24 15:00 94 H 19 95/40 L 95 06/25/24 14:31 95/40 L 06/25/24 14:30 91 H 19 06/25/24 14:00 89 16 90 06/25/24 13:48 91 H 16 06/25/24 13:21 86/60 L 06/25/24 13:06 89 22 94 06/25/24 13:02 84/52 L 06/25/24 12:48 89 16 90 06/25/24 12:33 95 H 21 93 06/25/24 12:27 95 H 06/25/24 12:04 06/25/24 11:38 36.4 C L 56 L 16 92/53 L 93 O2 Del Method 06/25/24 15:00 Room Air 06/25/24 14:31 06/25/24 14:30 06/25/24 14:00 06/25/24 13:48 06/25/24 13:21 06/25/24 13:06 06/25/24 13:02 06/25/24 12:48 06/25/24 12:33 06/25/24 12:27 06/25/24 12:04 Room Air 06/25/24 11:38 Room Air Laboratory Results Lab Results 06/25/24 06/25/24 Range/Units 11:58 12:33 WBC 8.47 (4.8-10.8) K/ul RBC 3.63 L (4.70-6.10) M/uL Hgb 11.7 L (14.0-18.0) g/dl Hct 35.6 L (42.0-52.0) % MCV 98.1 (80.0-100.0) fL MCH 32.2 (25.0-34.0) pg MCHC 32.9 (32.0-36.0) g/dL RDW Std Deviation 50.9 H (36.4-46.3) fL RDW Coeff of Nasim 14.1 (11.5-14.5) % Plt Count 169 (130-400) K/uL MPV 10.6 (9.4-12.4) fL Immature Gran % (Auto) 0.5 % Neut % (Auto) 57.0 % Lymph % (Auto) 23.5 % Edwards % (Auto) 10.2 % Eos % (Auto) 8.1 % Baso % (Auto) 0.7 % Neut # (Auto) 4.83 (1.40-6.50) K/uL Lymph # (Auto) 1.99 (1.20-3.40) K/uL Edwards # (Auto) 0.86 H (0.11-0.59) K/uL Eos # (Auto) 0.69 H (0.00-0.50) K/uL Baso # (Auto) 0.06 (0.00-0.20) K/uL Immature Gran # (Auto) 0.04 (0.01-0.20) K/uL Sodium 136 (136-145) mmol/L Potassium 5.2 H (3.5-5.1) mmol/L Chloride 90 L (98-107) mmol/L Carbon Dioxide 32 (21-32) mmol/L Anion Gap 14 H (3-11) BUN 39 H (6-23) mg/dl Creatinine 8.29 H* (0.6-1.4) mg/dl Est Cr Clr Drug Dosing Not Reportable eGFR 6.28 BUN/Creatinine Ratio 4.7 L (10-20) Glucose 184 H (70-99(Fasting)) mg/dl Calcium 9.3 (8.6-10.3) mg/dl Total Bilirubin 0.7 (0.2-1.0) mg/dl Direct Bilirubin 0.2 (0-0.2) mg/dl AST 10 L (13-39) U/L ALT 11 (7-52) U/L Alkaline Phosphatase 104 (34-104) U/L Total Protein 7.6 (6.0-8.3) gm/dl Albumin 4.2 (3.4-5.0) gm/dl Adenovirus (PCR) Not Detected (NotDetected) B. pertussis DNA (PCR) Not Detected (NotDetected) B.parapertussis DNA PCR Not Detected (NotDetected) C. pneumoniae DNA (PCR) Not Detected (NotDetected) Coronavirus OC43 (PCR) Not Detected (NotDetected) Coronavirus HKU1 (PCR) Not Detected (NotDetected) Coronavirus 229E (PCR) Not Detected (NotDetected) SARS-CoV-2 (PCR) Not Detected (NotDetected) Coronavirus NL63 (PCR) Not Detected (NotDetected) Human Metapneumovir PCR Not Detected (NotDetected) Influenza Type A (PCR) Not Detected (NotDetected) Influenza Type B (PCR) Not Detected (NotDetected) M. pneumoniae (PCR) Not Detected (NotDetected) Parainfluenza 1 (PCR) Not Detected (NotDetected) Parainfluenza 2 (PCR) Not Detected (NotDetected) Parainfluenza 3 (PCR) Not Detected (NotDetected) Parainfluenza 4 (PCR) Not Detected (NotDetected) RSV (PCR) Not Detected (NotDetected) Entero/Rhino (PCR) Not Detected (NotDetected) Diagnostic Findings Chest X-Ray 06/25/24 12:16 XR chest 1V portable CLINICAL HISTORY: fluid overload, CHF, PNA COMPARISON STUDY: 12/01/2021 FINDINGS: Right dialysis catheter tip is at the cavoatrial junction. There is stable mild cardiomegaly without pulmonary vascular congestion. Inspiration is shallow. There is mild stranding opacity at the right lung base. No other consolidation or pleural effusion. No pneumothorax. IMPRESSION: Likely mild atelectasis right lung base. No other acute findings seen. ACT 112: Negative or not required by law. Electronically signed by: Harish Camarillo M.D. 06/25/2024 12:44 PM (1) Hypotension Hypotension type: unspecified hypotension type Qualified Code(s): I95.9 - Hypotension, unspecified (5) Diabetic neuropathy Diabetes mellitus complication detail: diabetic polyneuropathy Diabetes mellitus type: type 2 Qualified Code(s): E11.42 - Type 2 diabetes mellitus with diabetic polyneuropathy
[2024-06-25] MEDS: INSULIN ASPART PER UNIT CHARGE SC SCH (17:11)
[2024-06-25] MEDS: Patient's HEIGHT &/or WEIGHT Needed SCH (17:22)
[2024-06-25] MEDS ORDERED: ACETAMINOPHEN 325 MG TAB PO PRN (17:35)
--- OUTSIDE RECORDS SUMMARY | 2024-06-25 20:43 | External Medical Summary | Summary of Care ---
Author Name Unknown Organization [facility] Address [address] [facility] [place] [address] Phone [phone] Care Team Providers Care Humidifier Attendant Name Role Phone Itz Niño DO Primary Care Provider Reason for Visit * Reason Onset Date Comments Health Maintenance 05/22/2024 Encounter Details Date Type Department Care Team (Late st Contact Info) Description 05/22/2024 Telephone Family Practice [facility] [address] [place] [address] Itz Niño DO [address] [place] [address] Health Maintenance Allergies Active Allergy Reactions Criticality Noted Date Comments Lisinopril Cough High 12/25/2019 Severe dry cough Losartan Diarrhea Medium 12/25/2019 documented as of this encounter (statuses as of 05/24/2024) Medications B-D INS SYR U/F II SHORT 1/2U INCREMENT 0.3/30G with insulin 1 Box Dosing Unit 5 08/18/19 17 Active Nitroglycerin 0.4 MG Sublingual Tablet Sublingual (NITROSTAT) Place 1 Tab under the tongue every 5 minutes as needed for Pain, Chest. 25 Tab 1 01/08/20 20 Active Additional Information Patient not taking.Reported on 10/01/2022 Calcium Acetate (Phos Binder) 667 MG Oral Tablet (Phoslo) Take 1 Tablet by mouth 3 times a day with meals. 150 Tablet 11 4 8:46 AM EDT 01/13/20 23 Active Atorvastatin Calcium 80 MG Oral Tablet (Lipitor) TAKE ONE TABLET BY MOUTH DAILY 90 Tablet 3 4 1:01 PM EST 04/12/19 24 025 Active Clopidogrel Bisulfate 75 MG Oral Tablet (pLAVix) Take 1 Tablet by mouth in the morning. 90 Tablet 3 5 7:26 AM EST 11/16/19 24 Active Gabapentin 300 MG Oral Capsule (Neurontin)Indicat ions:Diabetic peripheral neuropathy (HCC) TAKE ONE CAPSULE BY MOUTH AT BEDTIME 90 Capsule 3 4 4:01 PM EST 11/30/19 24 025 Active Omnipod 5 [id number] Pods Gen 5 Use as directed. Use 1 pod every 2-3 days E11.9 45 Each 3 02/10/20 24 Active Metoprolol Succinate ER 25 MG Oral Tablet Extended Release 24 Hour (toPROL XL)Indications:HTN , goal below 130/80 Take 0.5 Tablets by mouth in the morning. 90 Tablet 3 03/22/20 24 Active Insulin Syringe-Needle U-100 30G X 1/2" 0.5 MLIndications:Type 2 diabetes mellitus with hemoglobin A1c goal of less than 7.0% ([facility]) Use as directed with insulin up to 5 times a day. E11.9 100 Each 3 04/08/19 25 Active Sildenafil Citrate 50 MG Oral TabletIndications: Erectile dysfunction, unspecified erectile dysfunction type Take 1 Tablet by mouth daily as needed for Erectile Dysfunction. 30 Tablet 1 5 7:26 AM EST 04/28/19 25 Active oxyCODONE HCl 5 MG Oral Tablet (Oxy IR)Indications:Cub ital tunnel syndrome on right,Diabetic mononeuropathy associated with diabetes mellitus due to underlying condition ([facility]) Take 2 Tablets by mouth at bedtime as needed for Pain, Severe. 60 Tablet 04/16/19 25 025 Discontin ued(Refil l) documented as of this encounter (statuses as of 05/24/2024) Active Problems Problem Noted Date Diagnosed Date Acute hyperkalemia 01/30/2024 Acute hypoxemic respiratory failure 01/30/2024 Acute non-ST segment elevation myocardial infarc tion 01/30/2024 Anemia 01/30/2024 Bifascicular bundle branch block 01/30/2024 Chronic acquired lymphedema 01/30/2024 Hypoxia 01/30/2024 Neuropathy 01/30/2024 Peripheral edema 01/30/2024 Sepsis 01/30/2024 Venous stasis ulcer of left lower extremity 01/03 [id number] renal failure 01/30/2024 Vitreous hemorrhage, right 03/25/2022 Ischemic cardiomyopathy 03/25/2022 Hypertensive heart and kidne y disease with chronic combined systolic and diastolic congestive heart failure and stage 4 chronic kidney disease 01/04/2022 TIFFANIE (renal osteodystrophy) 12/17/2021 Chronic combined systolic (c ongestive) and diastolic (congestive) heart failure 12/17/2021 ESRD on dialysis 12/17/2021 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 associated with type 2 diabetes mellitus 01/20/2021 History of PA (myocardial infarction) 08/22/2020 Major depressive disorder, recurrent, mild 02/13 Cubital tunnel syndrome, right 02/14/2020 Unspecified inflammatory spondylopathy, cervical region 01/31/2020 Type 2 diabetes mellitus wit h hyperglycemia, with long-term current use of insulin 01/09/2020 Coronary artery disease invo lving [place] coronary artery of [place] heart with angina pectoris 12/28/2019 Controlled substance agreement signed 06/04/2019 Morbid obesity with body mass index of 40.0-44.9 in adult 03/06/2018 Benign hypertension with ESRD (end-stage renal d isease) 11/26/2013 Cerebrovascular disease, arteriosclerotic, post- stroke 10/31/2013 Type 2 diabetes mellitus wit h hemoglobin A1c goal of less than 7.0% 11/08/2012 Overview (07/29/2015): ICD-10 update of inactive term Diabetic neuropathy 01/07/2012 Dyslipidemia, goal LDL below 70 03/20/2009 Overview (03/20/2009): Per Lipid Taxonomy. Impotence of organic origin 02/20/2009 documented as of this encounter (statuses as of 05/24/2024) Resolved Problems Problem Noted Date Diagnosed Date Resolved Date Hyperlipidemia 12/17/2021 03/09/2022 Hypertensive kidney disease with chronic kidney disease stage IV 01/09/2020 01/04/2022 Overview (01/04/2022): With HF on PL GRIFFIN (acute kidney injury) 12/28/2019 Cardiorenal syndrome 12/28/2019 022 Overview (01/04/2022): With HF and CKD on PL Acute renal failure due to contrast agent 12/28/2019 12/11/2021 Heart failure, systolic, wit h acute decompensation 12/28/2019 12/30/2019 NSTEMI (non-ST elevated myoc ardial infarction) 12/28/2019 12/28/2019 CKD (chronic kidney disease) stage 4, GFR 15-29 ml/min 12/24/2019 03/20/2020 ASCVD (arteriosclerotic card iovascular disease) 04/30/2019 12/11/2021 Overview (12/11/2021): W/ angina on PL Morbid obesity 02/19/2019 03/15/2019 History of colon polyps 02/12/201908/02 Overview (08/21/2019): Historical. History of kidney stones 02/12/2019 Overview (08/21/2019): Historical. Hypertensive kidney disease with chronic kidney disease stage III 02/12/2019 08/21/2019 Overview (08/21/2019): Duplicate. Body mass index (BMI) of 40. 0 to 44.9 in adult 03/13/2018 08/21/2019 Overview (08/21/2019): Per Obesity protocol #1 - Duplicate. Diabetic foot ulcer 03/06/2018 06/04/19 20 Body mass index (BMI) of 45. 0 to 49.9 in adult 01/03/2017 03/17/2018 Overview: Per Obesity protocol #1 Kidney disease, chronic, sta ge III (GFR 30-59 ml/min) 12/20/2016 07/15/2017 DM type 2 with diabetic chronic skin ulcer 10/27/2016 12/20/2016 Renal calculus 06/02/2016 02/12/2019 Bunion of unspecified foot 04/08/2016 0 08/21/2019 Overview (08/21/2019): Acute. Kidney disease, chronic, sta ge III (GFR 30-59 ml/min) 08/19/2014 10/27/2016 Overview: Per CKD protocol #1 Diabetic polyneuropathy asso ciated with type 2 diabetes mellitus 01/07/2012 08/21/2019 Overview (08/21/2019): Duplicate. HTN, goal below 140/80 11/22/201111/26 Overview: Per HTN Protocol #27. Body mass index (BMI) of 40.0-44.9 in adult 05/20/2010 01/06/2017 Overview: Per Obesity protocol #1 Obesity, morbid (more than 1 00 lbs over ideal weight or BMI > 40) 07/01/2009 01/17/2020 Overview (06/23/2015): Per Obesity Taxonomy ICD-10 update of inactive term HTN, GOAL BELOW 130/80 05/01/200911/24 Overview (05/01/2009): Per HTN Taxonomy. Other psoriasis and similar disorders 02/20/2009 10/27/2016 Type 2 diabetes mellitus wit h hemoglobin A1c goal of less than 7.0% 01/16/2009 11/02/2012 Overview (07/29/2015): Modified per Diabetes protocol #14. ICD-10 update of inactive term Stress reaction, emotional 12/12/2008 0 10/27/2016 Benign neoplasm of colon 09/20/200802/2019 Overview (10/09/2008): adenomatous polyps, f/u in 3 yrs DM type 2, not at goal 08/29/200801/16 Overview (01/16/2009): Modified per Diabetes protocol #14. HTN, goal below 140/90 08/29/200805/01 Overview (05/01/2009): Per HTN Taxonomy. Mixed dyslipidemia 08/29/2008 9 Overview (03/20/2009): Per Lipid Taxonomy. Obesity, BMI not known 08/29/200807/01 Overview (07/01/2009): Per Obesity Taxonomy Other atopic dermatitis 08/29/200810/03 Overview (01/25/2017): ICD-10 update of inactive term Other allergic rhinitis 08/29/200810/03 Overview (01/25/2017): ICD-10 update of inactive term documented as of this encounter (statuses as of 05/24/2024) Immunizations Name Administration Dates Next Due COVID-19 mRNA, LNP-s, No Pre serve, 2-Dose Series (Moderna) 02/16/2021,06/10/2020,05/13/2020 COVID-19, MRNA-LNP, PF, 30 M CG/0.3 mL, 12 YRS AND ABOVE, IM (PFIZER-Comirnaty) 02/09/2024,02/09/2023 Covid-19, Mrna, Lnp-s, Pf, B ivalent, 30 Mcg, IM, 12 yrs and above (Pfizer) 01/05/2022 Diptheria/Tetanus (Adult) 02/02/2007 HEP A - Hepatitis A (Adult > 18 yrs) 09/06/2006, 03/08/2006,01/25/2006 HepA Inact/HepB Recomb>=18yrs old 03/08/2006, Hepatitis B, 20+ yrs 09/06/2006,03/08/2006,01/25 Pneumococcal Conjugate Vacc, 13 Valent (Prevnar) 03/06/2018 Pneumococcal Polysaccharide PPV23 (Pneumovax) 11/23/2019,01/24/2012 RSV Vac., Bivalent, Perfusio n F, Pf,0.5 Ml (Abrysvo) 12/13/2023 Season Influenza, Quad, PF, Adjuvanted, 65+ Yrs, IM (FLUAD) 01/14/2020 Seasonal Influenza Vac., MDV , IM, 0.5 mL (Fluzone) 01/24/2012 Seasonal Influenza, High Dos e, Trivalent, PF, IM (Fluzone HD) 02/09/2024 Seasonal Influenza, Quadriva lent Hd (Fluzone Hd) 01/18/2023,12/17/2021,01/20/2021 Seasonal Influenza, Trivalen t, Adjuvanted, 65+ YRS, PF, (Fluad) 02/19/2019 Varicella Zoster Vaccine (Adult) 04/15/2015 Zoster Vaccine Recombinant (Shingrix) 02/14/2020 ,11/23/2019 documented as of this encounter Social History Tobacco Use Types Packs/Day Years Used Date Smoking Tobacco: Never Smokeless Tobacco: Never Alcohol Use Standard Drinks/Week Comments Not Currently 0 (1 standard drink = 0.6 oz pur e alcohol) PHQ-2 Answer Date Recorded PHQ Adult Total Score 0 12/17/2021 Hunger Vital Sign Answer Date Recorded Within the past 12 months, y ou worried that your food would run out before you got the money to buy more. Never true 12/18/19 Within the past 12 months, t he food you bought just didn't last and you didn't have money to get more. 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 Answer Date of Assessment Author Yes 12/25/2019 10:28 AM EDT Jeremy Houser RN * Are you blind or do you have serious difficulty seeing, even when wearing glasses? Answer Date of Assessment Author No 12/25/2019 10:28 AM Jeremy Jensen RN * Do you have serious difficulty walking or climbing stairs? (5 years old or older) Answer Date of Assessment Author Yes 12/25/2019 10:28 AM Jeremy Jensen RN * Do you have difficulty dressing or bathing? (5 years old or older) Answer Date of Assessment Author No 12/25/2019 10:28 AM Jeremy Jensen RN * Because of a physical, mental, or emotional condition, do you have difficulty doing errands alone such as visiting a doctors office or shopping? (15 years old or older) Answer Date of Assessment Author Yes 12/25/2019 10:28 AM Jeremy Jensen RN documented as of this encounter Mental Status * Because of a physical, mental, or emotional condition, do you have serious difficulty concentrating, remembering, or making decisions? (5 years old or older) Answer Entry Date Author No 12/25/2019 10:28 AM Jeremy Jensen RN documented in this encounter Miscellaneous Notes * Addendum Note - Hernando Mc LPN - 05/24/2024 8:31 AM ESTAddended by: HERNANDO MC on: 05/24/2024 08:31 AM Modules accepted: Orders * Telephone Encounter - Hernando Mc LPN - 05/22/2024 10:17 AM EST Care Gaps Comprehensive Care Outreach Last Office/Telemedicine Visit: 08/23/2023 (in office), Visit date not found (telemedicine) Next Office Visit: Visit date not found Hemoglobin AIC Results: Lab Results Component Value Date/Time HEMOGLOBIN A1C - [facility] 10.3 (H) 09/15/2023 09:05 AM HEMOGLOBIN A1C - [facility] 9.4 (H) 04/22/2022 12:40 PM HEMOGLOBIN A1C - [facility] 9.1 (H) 09/17/2021 08:00 AM HEMOGLOBIN A1C - [facility] 10.8 (H) 12/26/2019 06:09 AM HEMOGLOBIN A1C - [facility] 12.5 (H) 10/10/2019 02:15 PM HEMOGLOBIN A1C - [facility] 7.9 (H) 06/18/2019 10:29 AM BP Readings from Last 1 Encounters: 08/23/23 100/60 Reviewed Health Maintenance below: Health Maintenance Topic Date Due DTap/Tdap Vaccines (1 - Tdap) 02/03/2007 Adult Wellness Visit Never done Colorectal Cancer Screening 05/02/2021 Depression Monitoring 12/17/2022 Diabetic Eye Exam 04/21/2023 HbA1c 03/16/2024 Ov only will see doctors? Cologuard due Lab awv Care Gap Outreach Action Taken: Left message and MyChart message sent documented in this encounter Plan of Treatment Upcoming Encounters Date Type Department Care Team (Late st Contact Info) Description 07/12/2024 10:00 AM EDT Office Visit Cardiology, [facility] [address] [place] [address] Poonam Titus CRNP [address] [place] [address] [place] [address] 11/01/2024 9:00 AM EDT Office Visit Orthopaedics [facility] [address] [place] [phone] David Ahmadi PA-C [address] [place] [phone] Scheduled Orders Name Type Priority Associated Diagnoses Orde r Schedule COLOGUARD Lab Unrestricted Lab Screening for malignant neoplasm of colon Ordered: 05/24/2024 Health Maintenance Due Date Last Done Comments Fecal Occult Blood Test 09/25/1995 Sigmoidoscopy 09/25/1995 DTap/Tdap Vaccines (1 - Tdap) 02/03/2007 02/02/2007 Colonoscopy 09/21/2011 09/20/2008 Adult Wellness Visit 2016 Colorectal Cancer Screening 05/02/2021 Depression Monitoring 12/17/2022 12/17/2021 Diabetic Eye Exam 04/21/2023 04/21/2022, , 03/12/2020, Additional history exists HbA1c 03/16/2024 09/15/2023, 04/04, 09/17/2021, Additional history exists Cologuard 05/01/2024 05/01/2021, 04/05, 04/23/2021, Additional history exists COVID-19 Vaccine (7 - Moderna risk 2023- season) 2024 02/09/2024, 02/09/2023, 01/05/2022, Additional history exists Diabetic Foot Exam 08/22/2024 08/23/2023, 0 06/02/2016, 01/16/2014, Additional history exists Hepatitis B Vaccine Completed 09/06/2006, 03/08/2006, 03/08/2006, Additional history exists Pneumococcal Vaccine: 50+ Years Completed 11/23/2019, 03/06/2018, 01/24/2012 Zoster Vaccines Completed 02/14/2020, 11/03, 04/15/2015 Albumin/Creatinine Ratio Discontinued 022, 10/10/2019, 04/24/2015, Additional history exists Influenza Vaccine (FLU shot) Completed 02/09/2024, 01/18/2023, 12/17/2021, Additional history exists HPV (Gardasil) Vaccine Aged Out No lo nger eligible based on patient's age to complete this topic MENINGOCOCCAL (MENACTRA/MENVEO) Aged Out No longer eligible based on patient's age to complete this topic Meningitis B Vaccine (Bexsero/Trumemba) Aged Out No longer eligible based on patient's age to complete this topic documented as of this encounter Medical Devices Implanted Type Area Driveway Attendant Device Identifier Shelf Expiration Date Model / Serial / Lot Lens 19.0 Mx60 - [id number] - [id number] Implanted:Qty: 1 on 11/02/2016 by Rob Padron MD at [facility] Right: Eye [employer] : SURGICAL 04/03/2019 MX60-19.0 / [id number] / [id number] documented as of this encounter Visit Diagnoses Diagnosis Screening for malignant neoplasm of colon- Primary documented in this encounter Advance Directives * Full Code (Latest Code Status on File) Date Activated Date Inactivated Comments 04/21/2022 8:14 AM 04/21/2022 3:20 PM This order reflects the patients wishes and were consensually agreed upon. Question Answer Comments Discussion of Advance Direct nina occurred with: Not Discussed due to patient's condition * Full Code Date Activated Date Inactivated Comments 12/25/2019 11:40 AM 01/08/2020 10:48 PM This order reflects the patients wishes and were consensually agreed upon. Question Answer Comments Discussion of Advance Directives occurred with: Patient Does the patient have a Living Will? Yes, not cu rrently available Does the patient have Health Care Power of Copy Holder? Yes, not currently available * Full Code Date Activated Date Inactivated Comments 11/02/2016 12:13 PM 11/02/2016 6:23 PM This order re flects the patients wishes and were consensually agreed upon. Healthcare Agents on File Name Relationship [facility] [place] Adult Child Health Care Power of Attorne y Care Teams Humidifier Attendant Relationship Specialty Start Date End Date Itz Niño DO [address] [place] [address] PCP - General Family Medicine 03/15/22 documented as of this encounter
--- OUTSIDE RECORDS SUMMARY | 2024-06-25 20:43 | External Medical Summary | Summary of Care ---
Author Name Unknown Organization [facility] Address [address] [facility] [place] [address] Phone [phone] Care Team Providers Care Leaf Fat Scraper Name Role Phone Itz Niño DO Primary Care Provider Encounter Details Date Type Department Care Team (Late st Contact Info) Description 05/30/2024 Telephone Family Practice [facility] [address] [place] [address] Itz Niño DO [address] [place] [address] Allergies Active Allergy Reactions Criticality Noted Date Comments Lisinopril Cough High 12/25/2019 Severe dry cough Losartan Diarrhea Medium 12/25/2019 documented as of this encounter (statuses as of 06/11/2024) Medications B-D INS SYR U/F II SHORT [...] 4 8:46 AM EDT 01/13/20 23 Active Clopidogrel Bisulfate 75 MG Oral Tablet (pLAVix) Take 1 Tablet by mouth in the morning. 90 Tablet 3 5 7:26 AM EST 11/16/19 24 Active Gabapentin 300 MG Oral Capsule (Neurontin)Indicat ions:Diabetic peripheral neuropathy (HCC) TAKE ONE CAPSULE BY MOUTH AT BEDTIME 90 Capsule 3 4 4:01 PM EST 11/30/19 24 025 Active Omnipod 5 [id number] Pods Gen 5 Use as directed. Use [...] hemoglobin A1c goal of less than 7.0% ([facility]) Use as directed with insulin up to [...] with diabetes mellitus due to underlying condition (HCC) Take 2 Tablets by mouth at bedtime as needed for Pain, Severe. 60 Tablet 05/22/19 25 Active Atorvastatin Calcium 80 MG Oral Tablet (Lipitor) TAKE ONE TABLET BY MOUTH DAILY 90 Tablet 3 4 1:01 PM EST 04/12/19 24 025 Discontin ued(Refil l) NovoLIN R 100 UNIT/ML Injection Solution (insulin REGULAR human) INJECT UP TO 200 UNITS DAILY VIA INSULIN PUMP 200 mL 3 4 1:53 PM EDT 04/14/19 24 025 Discontin ued(Refil l) documented as of this encounter (statuses as of 06/11/2024) Active Problems Problem Noted Date Diagnosed Date Acute hyperkalemia 01/30/2024 Acute hypoxemic respiratory failure 01/30/2024 Acute non-ST segment elevation myocardial infarc tion 01/30/2024 Anemia 01/30/2024 Bifascicular bundle branch block 01/30/2024 Chronic acquired lymphedema 01/30/2024 Hypoxia 01/30/2024 Neuropathy 01/30/2024 Peripheral edema 01/30/2024 Sepsis 01/30/2024 Venous stasis ulcer of left lower extremity 01/03 Xmoqh-po-zucbihm renal failure 01/30/2024 Vitreous hemorrhage, right 03/25/2022 [...] type 2 diabetes mellitus 01/20/2021 History of NM (myocardial infarction) 08/22/2020 Major depressive disorder, recurrent, mild 02/13 Cubital tunnel syndrome, right 02/14/2020 Unspecified inflammatory spondylopathy, cervical region 01/31/2020 Type 2 diabetes mellitus wit h hyperglycemia, with long-term current use of insulin 01/09/2020 Coronary artery disease invo lving [place] coronary artery of [place] heart with angina pectoris 12/28/2019 Controlled substance [...] as of this encounter (statuses as of 06/11/2024) Resolved Problems Problem Noted Date Diagnosed Date [...] (05/01/2009): Per HTN Taxonomy. Mixed dyslipidemia 08/29/2008 Overview (03/20/2009): Per Lipid Taxonomy. Obesity, BMI not known 08/29/200807/01 Overview (07/01/2009): Per Obesity Taxonomy Other atopic dermatitis 08/29/200810/03 Overview (01/25/2017): ICD-10 update of inactive term Other allergic rhinitis 08/29/200810/03 Overview (01/25/2017): ICD-10 update of inactive term documented as of this encounter (statuses as of 06/11/2024) Immunizations Name Administration Dates Next Due COVID-19 [...] money to buy more. 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 * Telephone Encounter - Diana Garcia LPN - 05/30/2024 8:05 AM EST Received Physician Cert Form from [place] for PCP to fill out for pt regarding Nursing facility Clinically Eligible or Ineligible. Filled out, had PCP sign. Attached meds and Dx list. Faxed. Copy in [facility], copy in [employer] folder. documented in this encounter Plan of Treatment Upcoming Encounters Date Type Department Care Team (Late st Contact Info) Description 07/12/2024 10:00 AM EDT Office Visit Cardiology, [facility] [address] [place] [address] Poonam Titus CRNP [address] [place] [address] 11/01/2024 9:00 AM EDT Office Visit Orthopaedics [facility] [address] [place] [phone] David Ahmadi PA-C [address] [place] [phone] Health Maintenance Due Date Last Done Comments Fecal Occult Blood Test 09/25/1995 Sigmoidoscopy 09/25/1995 DTap/Tdap Vaccines (1 - Tdap) 02/03/2007 02/02/2007 Colonoscopy 09/21/2011 09/20/2008 Adult Wellness Visit 2016 Depression Monitoring 12/17/2022 12/17/2021 Diabetic Eye Exam 04/21/2023 04/21/2022, , 03/12/2020, Additional history exists HbA1c 03/16/2024 09/15/2023, 04/04, 09/17/2021, Additional history exists Colorectal Cancer Screening 05/27/2024 COVID-19 Vaccine (7 - Moderna risk 2023- season) 2024 02/09/2024, 02/09/2023, 01/05/2022, Additional history exists Diabetic Foot Exam 08/22/2024 08/23/2023, 0 06/02/2016, 01/16/2014, Additional history exists Cologuard 05/26/2027 05/26/2024, 04/05, 04/23/2021, Additional history exists Hepatitis B Vaccine Completed [...] this encounter Medical Devices Implanted Type Area Water Technician Device Identifier Shelf Expiration Date Model / Serial / Lot Lens 19.0 Mx60 - [id number] - [id number] Implanted:Qty: 1 on 11/02/2016 by Rob Padron MD at [facility] Right: Eye [employer] : SURGICAL 04/03/2019 MX60-19.0 / [id number] / [id number] documented as of this encounter Advance Directives * Full Code (Latest Code Status on File) Date Activated Date Inactivated Comments 04/21/2022 8:14 AM 04/21/2022 3:20 PM This order r eflects the patients wishes and were consensually agreed [...] the patient have Health Care Power of Wax Specialist? Yes, not currently available * Full Code Date Activated Date Inactivated Comments 11/02/2016 12:13 PM 11/02/2016 6:23 PM This order re flects the patients wishes and were consensually agreed upon. Healthcare Agents on File Name Relationship Healthcare Agent [facility] [place] Adult Child Health Care Power of Attorne y Care Teams Leaf Fat Scraper Relationship Specialty Start Date End Date Itz Niño DO [address] [place] [address] PCP - General Family Medicine 03/15/22 documented as of this encounter
--- OUTSIDE RECORDS SUMMARY | 2024-06-25 20:43 | External Medical Summary | Summary of Care ---
Author Name Unknown Organization [facility] Address [address] [facility] [place] [address] Phone [phone] Care Team Providers Care Uppers Edge Burnisher Name Role Phone Itz Niño DO Primary Care Provider Reason for Visit * Reason Onset Date Comments Encounter Created in Error 06/11/2024 Encounter Details Date Type Department Care Team (Late st Contact Info) Description 06/11/2024 Telephone Family Practice [facility] [address] [facility] [place] [address] Amira Sears LPN Encounter Created in Error Allergies Active Allergy Reactions Criticality Noted Date [...] a day with meals. 150 Tablet 11 09/13/2023 8:46 AM EDT 01/13/20 23 Active Clopidogrel Bisulfate 75 MG Oral Tablet (pLAVix) Take 1 Tablet by mouth in the morning. 90 Tablet 3 05/11/2024 7:26 AM EST 11/16/19 24 Active Gabapentin 300 MG Oral Capsule (Neurontin)Indicat ions:Diabetic peripheral neuropathy (HCC) TAKE ONE CAPSULE BY MOUTH AT BEDTIME 90 Capsule 3 03/22/2024 4:01 PM EST 11/30/19 24 025 Active Omnipod 5 [id number] Pods Gen 5 Use as directed. Use [...] hemoglobin A1c goal of less than 7.0% ([facility]) Use as directed with insulin up to 5 times a day. E11.9 100 Each 3 04/08/19 25 Active Sildenafil Citrate 50 MG Oral TabletIndications: Erectile dysfunction, unspecified erectile dysfunction type Take 1 Tablet by mouth daily as needed for Erectile Dysfunction. 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 60 Tablet 05/22/19 25 Active NovoLIN R 100 UNIT/ML Injection Solution (insulin REGULAR human)Indications: Type 2 diabetes mellitus with hemoglobin A1c goal of less than 7.0% ([facility]) Inject 30 Units under the skin three times a day with meals. 200 mL 3 06/08/2024 12:20 PM EST 06/07/19 25 Active Atorvastatin Calcium 80 MG Oral Tablet (Lipitor) TAKE ONE TABLET BY MOUTH DAILY 90 Tablet 3 06/08/2024 1:35 PM EST 06/08/19 25 026 Active documented as of this encounter (statuses as of 06/11/2024) Active Problems Problem Noted Date Diagnosed Date Acute hyperkalemia 01/30/2024 Acute hypoxemic respiratory failure 01/30/2024 Acute non-ST segment elevation myocardial infarc tion 01/30/2024 Anemia 01/30/2024 Bifascicular bundle branch block 01/30/2024 Chronic acquired lymphedema 01/30/2024 Hypoxia 01/30/2024 Neuropathy 01/30/2024 Peripheral edema 01/30/2024 Sepsis 01/30/2024 Venous stasis ulcer of left lower extremity 01/03 Thzge-sn-uaqyuhs renal failure 01/30/2024 Vitreous hemorrhage, right 03/25/2022 [...] type 2 diabetes mellitus 01/20/2021 History of [place] (myocardial infarction) 08/22/2020 Major depressive disorder, recurrent, mild 02/13 Cubital tunnel syndrome, right 02/14/2020 Unspecified inflammatory spondylopathy, cervical region 01/31/2020 Type 2 diabetes mellitus wit h hyperglycemia, with long-term current use of insulin 01/09/2020 Coronary artery disease invo lving [place] coronary artery of [place] heart with angina pectoris 12/28/2019 Controlled substance [...] 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 Answer Date of Assessment Author Yes 12/25/2019 10:28 AM Jeremy Jensen RN * Are you blind or do [...] Encounter - Amira Sears LPN - 06/11/2024 12:03 PM EDT Encounter created in error. documented in this encounter Plan of Treatment Upcoming Encounters Date Type Department Care Team (Late st Contact Info) Description 07/12/2024 10:00 AM EDT Office Visit Cardiology, [facility] [address] [place] [address] Poonam Titus CRNP [address] [place] [address] [place] [address] 11/01/2024 9:00 AM EDT Office Visit Orthopaedics [facility] [address] [place] [phone] David Ahmadi PA-C [address] [...] 05/27/2024 COVID-19 Vaccine (7 - Moderna risk season) 2024 02/09/2024, 02/09/2023, 01/05/2022, Additional history [...] this encounter Medical Devices Implanted Type Area Impact Hammer Operator Device Identifier Shelf Expiration Date Model / Serial / Lot Lens 19.0 Mx60 - [id number] - [id number] Implanted:Qty: 1 on 11/02/2016 by Rob Padron MD at [facility] Right: Eye [employer] : SURGICAL 04/03/2019 MX60-19.0 / [id number] / [id number] documented as of this encounter Advance Directives [...] the patient have Health Care Power of Bread Supervisor? Yes, not currently available * Full Code Date Activated Date Inactivated Comments 11/02/2016 12:13 PM 11/02/2016 6:23 PM This order re flects the patients wishes and were consensually agreed upon. Healthcare Agents on File Name Relationship Healthcare Agent [facility] p Communication Digna Grover Adult Child Health Care Power of Attorne y Care Teams Uppers Edge Burnisher Relationship Specialty Start Date End Date Itz Niño DO [address] [place] [address] PCP - General Family Medicine 03/15/22 documented as of this encounter
--- OUTSIDE RECORDS SUMMARY | 2024-06-25 20:43 | External Medical Summary | Summary of Care ---
Author Name Unknown Organization [facility] Address [address] [facility] [place] [address] Phone [phone] Care Team Providers Care Server Engineer Name Role Phone Isabell Niño DO Primary Care Provider Reason for Visit * Reason Comments Medication Refill Encounter Details Date Type Department Care Team (Late st Contact Info) Description 06/07/2024 Refill Pharmacy, [facility] [address] [place] [address] Isabell Niño DO [address] [place] [address] Allergies Active Allergy Reactions Criticality Noted Date Comments Lisinopril Cough High 12/25/2019 Severe dry cough Losartan Diarrhea Medium 12/25/2019 documented as of this encounter (statuses as of 06/07/2024) Medications B-D INS SYR U/F II SHORT [...] EST 11/30/19 24 025 Active Omnipod 5 [id number] Pods Gen 5 Use as directed. Use [...] goal of less than 7.0% ([facility]) Use as directed with insulin up [...] goal of less than 7.0% ([facility]) Inject 30 Units under the skin three times a day with meals. 200 mL 3 06/07/19 25 Active Atorvastatin Calcium 80 MG Oral Tablet (Lipitor) TAKE ONE TABLET BY MOUTH DAILY 90 Tablet 3 06/08/19 25 026 Active Atorvastatin Calcium 80 MG Oral Tablet (Lipitor) TAKE ONE TABLET BY MOUTH DAILY 90 Tablet 3 4 1:01 PM EST 04/12/19 24 025 Discontin ued(Refil l) documented as of this encounter (statuses as of 06/07/2024) Active Problems Problem Noted Date Diagnosed Date Acute hyperkalemia 01/30/2024 Acute hypoxemic respiratory failure 01/30/2024 Acute non-ST segment elevation myocardial infarc tion 01/30/2024 Anemia 01/30/2024 Bifascicular bundle branch block 01/30/2024 Chronic acquired lymphedema 01/30/2024 Hypoxia 01/30/2024 Neuropathy 01/30/2024 Peripheral edema 01/30/2024 Sepsis 01/30/2024 Venous stasis ulcer of left lower extremity 01/03 Gawvl-sm-wrwjcwj renal failure 01/30/2024 Vitreous hemorrhage, right 03/25/2022 [...] type 2 diabetes mellitus 01/20/2021 History of [place] (myocardial infarction) 08/22/2020 Major depressive disorder, recurrent, mild 02/13 Cubital tunnel syndrome, right 02/14/2020 Unspecified inflammatory spondylopathy, cervical region 01/31/2020 Type 2 diabetes mellitus wit h hyperglycemia, with long-term current use of insulin 01/09/2020 Coronary artery disease invo lving [place] coronary artery of [place] heart with angina pectoris 12/28/2019 Controlled substance [...] as of this encounter (statuses as of 06/07/2024) Resolved Problems Problem Noted Date Diagnosed Date [...] as of this encounter (statuses as of 06/07/2024) Immunizations Name Administration Dates Next Due COVID-19 [...] 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 file Not [...] encounter Miscellaneous Notes * Telephone Encounter - My Rothman RPh - 06/07/2024 12:33 PM EST Signed Prescriptions: Disp Refills Atorvastatin Calcium 80 MG Oral Tablet (Li*90 Tab*3 Sig: TAKE ONE TABLET BY MOUTH DAILYAuthorizing Provider: ISABELL NIÑO User: MY ROTHMAN documented in this encounter Plan of Treatment Upcoming Encounters Date Type Department Care Team (Yury Contact Info) Description 07/12/2024 10:00 AM EDT Office Visit Cardiology, [facility] [address] [place] [address] Poonam Titus CRNP [address] [place] [address] 11/01/2024 9:00 AM EDT Office Visit Orthopaedics [facility] [address] [place] [address] David [...] this encounter Medical Devices Implanted Type Area Broadcast Maintenance Engineer Device Identifier Shelf Expiration Date Model / Serial / Lot Lens 19.0 Mx60 - [id number] - [id number] Implanted:Qty: 1 on 11/02/2016 by Rob Padron MD at [facility] Right: Eye [employer] : SURGICAL 04/03/2019 MX60-19.0 / [id number] / [id number] documented as of this encounter Advance Directives [...] the patient have Health Care Power of Sandblasting Supervisor? Yes, not currently available * Full Code Date Activated Date Inactivated Comments 11/02/2016 12:13 PM 11/02/2016 6:23 PM This order re flects the patients wishes and were consensually agreed upon. Healthcare Agents on File Name Relationship Healthcare Agent [facility] [place] Grover Adult Child Health Care Power of Attorne y Care Teams Server Engineer Relationship Specialty Start Date End Date Isabell Niño DO [address] [place] [address] PCP - General Family Medicine 03/15/22 documented as of this encounter
--- OUTSIDE RECORDS SUMMARY | 2024-06-25 20:43 | External Medical Summary | Summary of Care ---
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 Use [...] hemoglobin A1c goal of less than 7.0% ([facility]) Use as directed with insulin up to [...] Pain, Severe. 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 60 Tablet 04/16/19 25 025 Discontin ued(Refil l) documented as of this encounter (statuses as of 05/22/2024) Active Problems Problem Noted Date Diagnosed Date Acute hyperkalemia 01/30/2024 Acute hypoxemic respiratory failure 01/30/2024 Acute non-ST segment elevation myocardial infarc tion 01/30/2024 Anemia 01/30/2024 Bifascicular bundle branch block 01/30/2024 Chronic acquired lymphedema 01/30/2024 Hypoxia 01/30/2024 Neuropathy 01/30/2024 Peripheral edema 01/30/2024 Sepsis 01/30/2024 Venous stasis ulcer of left lower extremity 01/03 Jqjfj-rb-ukmcshj renal failure 01/30/2024 Vitreous hemorrhage, right 03/25/2022 [...] type 2 diabetes mellitus 01/20/2021 History of [place] (myocardial infarction) 08/22/2020 Major depressive disorder, recurrent, mild 02/13 Cubital tunnel syndrome, right 02/14/2020 Unspecified inflammatory spondylopathy, cervical region 01/31/2020 Type 2 diabetes mellitus wit h hyperglycemia, with long-term current use of insulin 01/09/2020 Coronary artery disease invo lving [place] coronary artery of [place] heart with angina pectoris 12/28/2019 Controlled substance [...] as of this encounter (statuses as of 05/22/2024) Resolved Problems Problem Noted Date Diagnosed Date [...] as of this encounter (statuses as of 05/22/2024) Immunizations Name Administration Dates Next Due COVID-19 mRNA, LNP-s, No Pre serve, 2-Dose Series (Moderna) 02/16/2021,06/10/2020,05/13/2020 COVID-19, MRNA-LNP, PF, 30 M CG/0.3 mL, 12 YRS AND ABOVE, IM (SyndicatePlus-Comirnaty) 02/09/2024,02/09/2023 Covid-19, Mrna, Lnp-s, Pf, B ivalent, [...] 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 Authorizing Provider: ISABELL NIÑO * Telephone Encounter - Sandeep Inman [facility] - 05/22/2024 12:59 PM ESTPending Prescriptions: Disp Refills oxyCODONE HCl 5 MG Oral Tablet (Oxy IR) 60 Tab*0 Sig: Take 2 Tablets by mouth at bedtime as needed for Pain, Severe. * Telephone Encounter - Sandeep Inman [facility] - 05/22/2024 12:58 PM EST I have reviewed the patients controlled substance dispensing history in the Prescription Drug Monitoring Program in compliance with the [facility] regulations before prescribing a controlled substance. PDMP checked on 05/22/2024. Pending Prescriptions: Disp Refills oxyCODONE HCl 5 MG Oral Tablet (Oxy IR) 60 Tab*0 Sig: Take 2 Tablets by mouth at bedtime as needed for Pain, Severe. Last Visit: 08/23/2023 (in office), Visit date not found (telemedicine) Next Visit: Visit date not found Date medication was last filled: 04-16-24 Date medication is due for refill: 05-15-24 Pharmacy: [id number] [place] Is this request for a controlled substance? and Urine Drug Screen Not completed Toxicology results: Results for orders placed or performed in visit on 01/05/22 PAIN MANAGEMENT DRUG PANEL, URINE W/ INTERPRETATION Result Value Pain Management Interpretation Based on the medication information provided: The positive oxycodone screening result is CONSISTENT with oxycodone use, but more recently than 12/16/2021. Confirmatory testing is available upon request. Amphetamines Screen, U Negative Benzodiazepines Screen, U Negative Cannabinoids Screen, U Negative Cocaine Metabolite Screen, U Negative Fentanyl Screen, U Negative Hydrocodone Screen, U Negative Methadone Metabolite Screen, U Negative Morphine/Codeine Screen, U Negative Oxycodone Screen, U Positive (A) Specimen Validity Interpretation Normal Creatinine, U 318 Narrative Cutoff Concentrations: Drug Level Amphetamines 500 ng/mL Benzodiazepines 100 ng/mL Cannabinoids 50 ng/mL Cocaine Metabolite 150 ng/mL Fentanyl 1 ng/mL Hydrocodone / Hydromorphone 300 ng/mL Methadone Metabolite 100 ng/mL Morphine / Codeine 300 ng/mL Oxycodone / Oxymorphone 100 ng/mL Screening results are presumptive and can only be used for medical purposes. Confirmatory testing is available upon request. *Note: Due to a large number of results and/or encounters for the requested time period, some results have not been displayed. A complete set of results can be found in Results Review. Please approve if appropriate. Catrachito Rivera.Ph. Clinical Pharmacist [facility] ([facility]) [address] [place] [address], [address] [place] [address] : [phone] 05/22/2024,12:58 PM documented in this encounter Plan of Treatment Upcoming Encounters Date Type Department Care Team (Late st Contact Info) Description 07/12/2024 10:00 AM EDT Office Visit Cardiology, [facility] [address] [place] [address] Poonam Titus CRNP [address] [facility] [address] [address] 11/01/2024 9:00 AM EDT Office Visit Orthopaedics [facility] [address] [place] [phone] David Ahmadi PA-C [address] [place] [phone] Health Maintenance Due Date Last Done Comments [...] exists COVID-19 Vaccine (7 - Moderna risk season) [...] this encounter Medical Devices Implanted Type Area Tenter Feeder Device Identifier Shelf Expiration Date Model / Serial / Lot Lens 19.0 Mx60 - [id number] - [id number] Implanted:Qty: 1 on 11/02/2016 by Rob Padron MD at [facility] Right: Eye [employer] : SURGICAL 04/03/2019 MX60-19.0 / [id number] / [id number] documented as of this encounter Visit Diagnoses Diagnosis Cubital tunnel syndrome on right Lesion of ulnar nerve 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 Yes, not currently available * Full Code Date Activated Date Inactivated Comments 11/02/2016 12:13 PM 11/02/2016 6:23 PM This order re flects the patients wishes and were consensually agreed upon. Healthcare Agents on File Name [facility] Digna Grover Adult Child Health Care Power of Attorne y Care Teams Watch Parts Inspector Relationship Specialty Start Date End Date Isabell Niño DO [address] [place] [address] PCP - General Family Medicine 03/15/22 documented as of this encounter
--- OUTSIDE RECORDS SUMMARY | 2024-06-25 20:43 | External Medical Summary | Summary of Care ---
Author Name Unknown Organization [facility] Address [address] [facility] [place] [address] Phone [phone] Care Team Providers Care Interactive Video Technician Name Role Phone Itz Niño DO Primary Care Provider Encounter Details Date Type Department Care Team (Late st Contact Info) Description 05/30/2024 Telephone Family Practice [facility] [address] [place] [address] Itz Niño DO [address] [place] [address] Allergies Active Allergy Reactions Criticality Noted Date Comments Lisinopril Cough High 12/25/2019 Severe dry cough Losartan Diarrhea Medium 12/25/2019 documented as of this encounter (statuses as of 05/30/2024) Medications B-D INS SYR U/F II SHORT [...] 09/13/2023 8:46 AM EDT 01/13/20 23 Active Atorvastatin Calcium 80 MG Oral Tablet (Lipitor) TAKE ONE TABLET BY MOUTH DAILY 90 Tablet 3 03/17/2024 1:01 PM EST 04/12/19 24 025 Active Clopidogrel Bisulfate 75 MG Oral Tablet (pLAVix) Take 1 Tablet by mouth in the morning. 90 Tablet 3 05/11/2024 7:26 AM EST 11/16/19 24 Active Gabapentin 300 MG Oral Capsule (Neurontin)Indicat ions:Diabetic peripheral neuropathy (HCC) TAKE ONE CAPSULE BY MOUTH AT BEDTIME 90 Capsule 3 03/22/2024 4:01 PM EST 11/30/19 24 025 Active Omnipod 5 [id number] Pods Gen 5 Use as directed. Use [...] hemoglobin A1c goal of less than 7.0% ([facility]) Use as directed with insulin [...] Pain, Severe. 60 Tablet 05/22/19 25 Active documented as of this encounter (statuses as of 05/30/2024) Active Problems Problem Noted Date Diagnosed Date Acute hyperkalemia 01/30/2024 Acute hypoxemic respiratory failure 01/30/2024 Acute non-ST segment elevation myocardial infarc tion 01/30/2024 Anemia 01/30/2024 Bifascicular bundle branch block 01/30/2024 Chronic acquired lymphedema 01/30/2024 Hypoxia 01/30/2024 Neuropathy 01/30/2024 Peripheral edema 01/30/2024 Sepsis 01/30/2024 Venous stasis ulcer of left lower extremity 01/03 Wypsu-hg-ffknkmo renal failure 01/30/2024 Vitreous hemorrhage, right 03/25/2022 [...] type 2 diabetes mellitus 01/20/2021 History of [place] (myocardial infarction) 08/22/2020 Major depressive disorder, recurrent, mild 02/13 Cubital tunnel syndrome, right 02/14/2020 Unspecified inflammatory spondylopathy, cervical region 01/31/2020 Type 2 diabetes mellitus wit h hyperglycemia, with long-term current use of insulin 01/09/2020 Coronary artery disease invo lving [place] coronary artery of [place] heart with angina pectoris 12/28/2019 Controlled substance [...] as of this encounter (statuses as of 05/30/2024) Resolved Problems Problem Noted Date Diagnosed Date [...] as of this encounter (statuses as of 05/30/2024) Immunizations Name Administration Dates Next Due COVID-19 mRNA, LNP-s, No Pre serve, 2-Dose Series (Moderna) 02/16/2021,06/10/2020,05/13/2020 COVID-19, MRNA-LNP, PF, 30 M CG/0.3 mL, 12 YRS AND ABOVE, IM (PFIZER-Comirnat) 02/09/2024,02/09/2023 Covid-19, Mrna, Lnp-s, Pf, B ivalent, [...] 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 Answer Date of Assessment Author Yes 12/25/2019 10:28 AM ALEXIST Jeremy Houser RN * Are you blind or do you have serious difficulty seeing, even when wearing glasses? Answer Date of Assessment Author No 12/25/2019 10:28 AM EDT Jeremy Houser RN * Do you have serious difficulty walking or climbing stairs? (5 years old or older) Answer Date of Assessment Author Yes 12/25/2019 10:28 AM EDT Jeremy Houser RN * Do you have difficulty dressing or bathing? (5 years old or older) Answer Date of Assessment Author No 12/25/2019 10:28 AM ALEXIST Jeremy Houser RN * Because of a physical, mental, or emotional condition, do you have difficulty doing errands alone such as visiting a doctors office or shopping? (15 years old or older) Answer Date of Assessment Author Yes 12/25/2019 10:28 AM EDT Jeremy Houser RN documented as of this encounter Mental Status * Because of a physical, mental, or emotional condition, do you have serious difficulty concentrating, remembering, or making decisions? (5 years old or older) Answer Entry Date Author No 12/25/2019 10:28 AM Jeremy Jensen RN documented in this encounter Miscellaneous Notes * Telephone Encounter - Diana Garcia LPN - 05/30/2024 8:05 AM EST Received Physician Cert Form from [place] for PCP to fill out for pt regarding Nursing facility Clinically Eligible or Ineligible. Filled out, had PCP sign. Attached meds and Dx list. Faxed. Copy in [place], copy in [place] folder. documented in this encounter Plan of Treatment Upcoming Encounters Date Type Department Care Team (Late st Contact Info) Description 07/12/2024 10:00 AM EDT Office Visit Cardiology, [facility] [address] [place] [address] Poonam Titus CRNP [address] [place] [address] [place] [address] 11/01/2024 9:00 AM EDT Office Visit Orthopaedics [facility] [address] [place] [phone] David Ahmadi PA-C [address] [place] [phone] Health Maintenance Due Date Last Done Comments [...] this encounter Medical Devices Implanted Type Area Terminal Operator Device Identifier Shelf Expiration Date Model / Serial / Lot Lens 19.0 Mx60 - [id number] - [id number] Implanted:Qty: 1 on 11/02/2016 by Rob Padron MD at OR [facility] Right: Eye [employer] : SURGICAL 04/03/2019 MX60-19.0 / [id number] / [id number] documented as of this encounter Advance Directives [...] the patient have Health Care Power of Spanish Language Lecturer? Yes, not currently available * Full Code Date Activated Date Inactivated Comments 11/02/2016 12:13 PM 11/02/2016 6:23 PM This order re flects the patients wishes and were consensually agreed upon. Healthcare Agents on File Name Relationship Healthcare Agent [facility] p Communication Digna Grover Adult Child Health Care Power of Attorne y Care Teams Interactive Video Technician Relationship Specialty Start Date End Date Itz Niño DO [address] [place] [address] PCP - General Family Medicine 03/15/22 documented as of this encounter
--- OUTSIDE RECORDS SUMMARY | 2024-06-25 20:43 | External Medical Summary | Summary of Care ---
Author Name Unknown Organization [facility] Address [address] [facility] [address] Phone [phone] Care Team Providers Care Television Actor Name Role Phone Itz Niño DO Primary Care Provider Reason for Visit * Reason Onset Date Comments Advice 05/29/2024 Sooner appt Encounter Details Date Type Department Care Team (Late st Contact Info) Description 05/29/2024 Telephone Cardiology, [place] [address] [place] [address] Poonam Titus CRNP [address] [place] [address] Advice (Sooner appt ) Allergies Active Allergy Reactions Criticality Noted Date Comments Lisinopril Cough High 12/25/2019 Severe dry cough Losartan Diarrhea Medium 12/25/2019 documented as of this encounter (statuses as of 06/01/2024) Medications B-D INS SYR U/F II SHORT [...] EST 11/30/19 24 025 Active Omnipod 5 [id number] Pods Gen 5 Use as directed. Use [...] hemoglobin A1c goal of less than 7.0% ([facility]) Use as directed with insulin up [...] as of this encounter (statuses as of 06/01/2024) Active Problems Problem Noted Date Diagnosed Date Acute hyperkalemia 01/30/2024 Acute hypoxemic respiratory failure 01/30/2024 Acute non-ST segment elevation myocardial infarc tion 01/30/2024 Anemia 01/30/2024 Bifascicular bundle branch block 01/30/2024 Chronic acquired lymphedema 01/30/2024 Hypoxia 01/30/2024 Neuropathy 01/30/2024 Peripheral edema 01/30/2024 Sepsis 01/30/2024 Venous stasis ulcer of left lower extremity 01/03 Znddd-jq-rhzccnv renal failure 01/30/2024 Vitreous hemorrhage, right 03/25/2022 [...] type 2 diabetes mellitus 01/20/2021 History of [place] (myocardial infarction) 08/22/2020 Major depressive disorder, recurrent, mild 02/13 Cubital tunnel syndrome, right 02/14/2020 Unspecified inflammatory spondylopathy, cervical region 01/31/2020 Type 2 diabetes mellitus wit h hyperglycemia, with long-term current use of insulin 01/09/2020 Coronary artery disease invo lving [place] coronary artery of [place] heart with angina pectoris 12/28/2019 Controlled substance [...] as of this encounter (statuses as of 06/01/2024) Resolved Problems Problem Noted Date Diagnosed Date [...] Overview (05/01/2009): Per HTN Taxonomy. Mixed dyslipidemia 08/29/200803/20/200 9 Overview (03/20/2009): Per Lipid Taxonomy. Obesity, BMI not known 08/29/200807/01 Overview (07/01/2009): Per Obesity Taxonomy Other atopic dermatitis 08/29/200810/03 Overview (01/25/2017): ICD-10 update of inactive term Other allergic rhinitis 08/29/200810/03 Overview (01/25/2017): ICD-10 update of inactive term documented as of this encounter (statuses as of 06/01/2024) Immunizations Name Administration Dates Next Due COVID-19 mRNA, LNP-s, No Pre serve, 2-Dose Series (Moderna) 02/16/2021,06/10/2020,05/13/2020 COVID-19, MRNA-LNP, PF, 30 M CG/0.3 mL, 12 YRS AND ABOVE, IM (PFIZER-[facility]) 02/09/2024,02/09/2023 Covid-19, Mrna, Lnp-s, Pf, B ivalent, [...] 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 * Telephone Encounter - Poonam Titus CRNP - 06/01/2024 1:23 PM EST Unable to find recent office visit note with urology. Per telephone encounter from nephrology (04/13/24), patient with history ischemic cardiomyopathy with no active issues but please schedule for routine follow-up visit. Please have patient monitor blood pressure with home cuff and bring readings to follow-up visit scheduled on 07/12/24. Reach out if his notices systolic blood pressure readings above 180 or diastolic blood pressure readings above 110. * Telephone Encounter - Michelle Bose OSA - 05/29/2024 11:55 AM EST Person calling: Jignesh Relationship to patient: Self Number to return call: [phone] Reason for call (brief): Sooner appt per Urologist Pharmacy: N/A Provider Name: Tacho Detailed message to office: Pt called to say his kidney dr told him he needed to be seen by cardiology sooner than he is scheduled because of his BP. Pt did not seem concerned but wanted to inform the dr anyway of it. There were no sooner appts available & [place] was [place] the fast [place]. He uses county transportation so he will need to know at least 1 day ahead of time for the appt. Outcome: TE documented in this encounter Plan of Treatment Upcoming Encounters Date Type Department Care Team (Late st Contact Info) Description 07/12/2024 10:00 AM EDT Office Visit Cardiology, [facility] [address] [place] [address] Poonam Titus CRNP [address] [place] [address] [place] [address] 11/01/2024 9:00 AM EDT Office Visit Orthopaedics [facility] [address] [place] [phone] David Ahmadi PA-C [address] [place] [phone] Health Maintenance Due Date Last Done Comments [...] this encounter Medical Devices Implanted Type Area Head Orthopedic Team Physician Device Identifier Shelf Expiration Date Model / Serial / Lot Lens 19.0 Mx60 - [id number] - [id number] Implanted:Qty: 1 on 11/02/2016 by Rob Padron MD at OR [facility] [address] Right: Eye [employer] : SURGICAL 04/03/2019 MX60-19.0 / [id number] / [id number] documented as of this encounter Advance Directives [...] the patient have Health Care Power of Goat Herder? Yes, not currently available * Full Code Date Activated Date Inactivated Comments 11/02/2016 12:13 PM 11/02/2016 6:23 PM This order re flects the patients wishes and were consensually agreed upon. Healthcare Agents on File Name Relationship Healthcare Agent Relationshi p Communication Digna Grover Adult Child Health Care Power of Attorne y Care Teams Television Actor Relationship Specialty Start Date End Date Itz Niño DO [address] [place] [address] PCP - General Family Medicine 03/15/22 documented as of this encounter
--- OUTSIDE RECORDS SUMMARY | 2024-06-25 20:43 | External Medical Summary | Summary of Care ---
Author Name Unknown Organization [facility] Address [address] [facility] [place] [address] Phone [phone] Care Team Providers Care Clinical Pathologist Name Role Phone Itz Niño DO Primary Care Provider Reason for Visit * Reason Onset Date Comments Health Maintenance 05/25/2024 Encounter Details Date Type Department Care Team (Late st Contact Info) Description 05/25/2024 Telephone Family Practice [facility] [address] [place] [address] Itz Niño DO [address] [place] [address] Health Maintenance Allergies Active Allergy Reactions Criticality Noted Date Comments Lisinopril Cough High 12/25/2019 Severe dry cough Losartan Diarrhea Medium 12/25/2019 documented as of this encounter (statuses as of 05/25/2024) Medications B-D INS SYR U/F II SHORT [...] EST 11/30/19 24 025 Active Omnipod 5 [id number] Pods Gen 5 Use as directed. Use [...] hemoglobin A1c goal of less than 7.0% ([facility]) Use as directed with insulin up to [...] as of this encounter (statuses as of 05/25/2024) Active Problems Problem Noted Date Diagnosed Date Acute hyperkalemia 01/30/2024 Acute hypoxemic respiratory failure 01/30/2024 Acute non-ST segment elevation myocardial infarc tion 01/30/2024 Anemia 01/30/2024 Bifascicular bundle branch block 01/30/2024 Chronic acquired lymphedema 01/30/2024 Hypoxia 01/30/2024 Neuropathy 01/30/2024 Peripheral edema 01/30/2024 Sepsis 01/30/2024 Venous stasis ulcer of left lower extremity 01/03 Rksnd-rr-gnugaxs renal failure 01/30/2024 Vitreous hemorrhage, right 03/25/2022 [...] type 2 diabetes mellitus 01/20/2021 History of [place] (myocardial infarction) 08/22/2020 Major depressive disorder, recurrent, mild 02/13 Cubital tunnel syndrome, right 02/14/2020 Unspecified inflammatory spondylopathy, cervical region 01/31/2020 Type 2 diabetes mellitus wit h hyperglycemia, with long-term current use of insulin 01/09/2020 Coronary artery disease invo lving [place] coronary artery of [place] heart with angina pectoris 12/28/2019 Controlled substance [...] as of this encounter (statuses as of 05/25/2024) Resolved Problems Problem Noted Date Diagnosed Date [...] Overview (05/01/2009): Per HTN Taxonomy. Mixed dyslipidemia 08/29/200803/20/ 9 Overview (03/20/2009): Per Lipid Taxonomy. 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 [...] encounter Miscellaneous Notes * Telephone Encounter - Elke Lunsford LPN - 05/25/2024 2:50 PM EST Care Gaps Comprehensive Care Outreach Last [...] 12/17/2022 Diabetic Eye Exam 04/21/2023 HbA1c 03/16/2024 COVID-19 Vaccine (7 - Moderna risk season) 2024 Diabetic Foot Exam 08/22/2024 Just reached out Care Gap Outreach Action Taken: Outreach not indicated documented in this encounter Plan of Treatment Upcoming Encounters Date Type Department Care Team (Late st Contact Info) Description 07/12/2024 10:00 AM EDT Office Visit Cardiology, [facility] [address] [place] [address] Poonam Titus CRNP [address] [place] [address] [place] [address] 11/01/2024 9:00 AM EDT Office Visit Orthopaedics [facility] [address] [place] [phone] David Ahmadi PA-C [address] [place] [phone] Health Maintenance Due Date Last Done Comments [...] this encounter Medical Devices Implanted Type Area Mental Health Therapist Device Identifier Shelf Expiration Date Model / Serial / Lot Lens 19.0 Mx60 - [id number] - [id number] Implanted:Qty: 1 on 11/02/2016 by Rob Padron MD at [facility] Right: Eye [employer] : SURGICAL 04/03/2019 MX60-19.0 / [id number] / [id number] documented as of this encounter Advance Directives [...] the patient have Health Care Power of Cocktail Waitress? Yes, not currently available * Full Code Date Activated Date Inactivated Comments 11/02/2016 12:13 PM 11/02/2016 6:23 PM This order re flects the patients wishes and were consensually agreed upon. Healthcare Agents on File Name Relationship Healthcare Agent [facility] Communication Digna Grover Adult Child Health Care Power of Attorne y Care Teams Clinical Pathologist Relationship Specialty Start Date End Date Itz Niño DO [address] [place] [address] PCP - General Family Medicine 03/15/22 documented as of this encounter
--- OUTSIDE RECORDS SUMMARY | 2024-06-25 20:44 | External Medical Summary | Summary of Care ---
Author Name Unknown Organization [facility] Address [address] [place] [facility] [place] [address] Phone [phone] Care Team Providers Care Employment Services Director Name Role Phone Itz Niño DO Primary Care Provider Encounter Details Date Type Department Care Team (Late st Contact Info) Description 04/26/2024 Population Health External Data Unspecified Department Allergies Active Allergy Reactions Criticality Noted Date Comments Lisinopril Cough High 12/25/2019 Severe dry cough Losartan Diarrhea Medium 12/25/2019 documented as of this encounter (statuses as of 04/26/2024) Medications B-D INS SYR U/F II SHORT [...] mouth in the morning. 90 Tablet 3 02/01/2024 6:44 PM EDT 11/16/19 24 Active Gabapentin 300 MG Oral Capsule (Neurontin)Indicat ions:Diabetic peripheral neuropathy (HCC) TAKE ONE CAPSULE BY MOUTH AT BEDTIME 90 Capsule 3 03/22/2024 4:01 PM EST 11/30/19 24 025 Active Omnipod 5 [id number] Pods Gen 5 Use as directed. Use 1 pod every 2-3 days E11.9 45 Each 3 02/10/20 24 Active Sildenafil Citrate 50 MG Oral TabletIndications: Erectile dysfunction, unspecified erectile dysfunction type Take 1 Tablet by mouth daily as needed for Erectile Dysfunction. 30 Tablet 1 02/14/20 24 Active Metoprolol Succinate ER 25 MG Oral Tablet Extended Release 24 Hour (toPROL XL)Indications:HTN , goal below 130/80 Take 0.5 Tablets by mouth in the morning. 90 Tablet 3 03/22/20 24 Active Insulin Syringe-Needle U-100 30G X 1/2" 0.5 MLIndications:Type 2 diabetes mellitus with hemoglobin A1c goal of less than 7.0% ([facility]) Use as directed with insulin up to 5 times a day. E11.9 100 Each 3 04/08/19 25 Active oxyCODONE HCl 5 MG Oral Tablet (Oxy IR)Indications:Cub ital tunnel syndrome on right,Diabetic mononeuropathy associated with diabetes mellitus due to underlying condition (HCC) Take 2 Tablets by mouth at bedtime as needed for Pain, Severe. 60 Tablet 04/16/19 25 Active documented as of this encounter (statuses as of 04/26/2024) Active Problems Problem Noted Date Diagnosed Date Acute hyperkalemia 01/30/2024 Acute hypoxemic respiratory failure 01/30/2024 Acute non-ST segment elevation myocardial infarc tion 01/30/2024 Anemia 01/30/2024 Bifascicular bundle branch block 01/30/2024 Chronic acquired lymphedema 01/30/2024 Hypoxia 01/30/2024 Neuropathy 01/30/2024 Peripheral edema 01/30/2024 Sepsis 01/30/2024 Venous stasis ulcer of left lower extremity 01/03 Szrsq-us-mxpqwbl renal failure 01/30/2024 Vitreous hemorrhage, right 03/25/2022 [...] type 2 diabetes mellitus 01/20/2021 History of [place] (myocardial infarction) 08/22/2020 Major depressive disorder, recurrent, mild 02/13 Cubital tunnel syndrome, right 02/14/2020 Unspecified inflammatory spondylopathy, cervical region 01/31/2020 Type 2 diabetes mellitus wit h hyperglycemia, with long-term current use of insulin 01/09/2020 Coronary artery disease invo lving [place] coronary artery of [place] heart with angina pectoris 12/28/2019 Controlled substance [...] as of this encounter (statuses as of 04/26/2024) Resolved Problems Problem Noted Date Diagnosed Date [...] as of this encounter (statuses as of 04/26/2024) Immunizations Name Administration Dates Next Due COVID-19 mRNA, LNP-s, No Pre serve, 2-Dose Series (Moderna) 02/16/2021,06/10/2020,05/13/2020 COVID-19, MRNA-LNP, PF, 30 M CG/0.3 mL, 12 YRS AND ABOVE, IM (PFIZER-Comirnaty) 02/09/2024,02/09/2023 Covid-19, Mrna, Lnp-s, Pf, B ivalent, 30 Mcg, IM, 12 yrs and above (DiJiPOP) 01/05/2022 Diptheria/Tetanus (Adult) 02/02/2007 HEP A - [...] 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 Not [...] Assessment Author No 12/25/2019 10:28 AM EDT Ritter, Jeremy R, RN * Because of a physical, mental, [...] Entry Date Author No 12/25/2019 10:28 AM EDT Jeremy Houser RN documented in this encounter Plan of Treatment Upcoming Encounters Date Type Department Care Team (Late st Contact Info) Description 05/03/2024 10:00 AM EST Office Visit Orthopaedics [facility] [address] [place] [phone] David Ahmadi PA-C [address] [place] [phone] 07/12/2024 10:00 AM EDT Office Visit Cardiology, [facility] [address] [place] [address] Poonam Titus CRNP [address] [facility] [place] [address] Health Maintenance Due Date Last Done Comments Fecal Occult Blood Test 09/25/1995 Sigmoidoscopy 09/25/1995 DTap/Tdap Vaccines (1 - Tdap) 02/03/2007 02/02/2007 Colonoscopy 09/21/2011 09/20/2008 Adult Wellness Visit 2016 Colorectal Cancer Screening 05/02/2021 Depression Monitoring 12/17/2022 12/17/2021 Diabetic Eye Exam 04/21/2023 04/21/2022, , 03/12/2020, Additional history exists HbA1c 03/16/2024 09/15/2023, 04/04, 09/17/2021, Additional history exists Cologuard 05/01/2024 05/01/2021, 04/05, 04/23/2021, Additional history exists Diabetic Foot Exam 08/22/2024 08/23/2023, 0 06/02/2016, 01/16/2014, Additional history exists Hepatitis B Vaccine Completed 09/06/2006, 03/08/2006, 03/08/2006, Additional history exists Pneumococcal Vaccine: 50+ Years Completed 11/23/2019, 03/06/2018, 01/24/2012 Zoster Vaccines Completed 02/14/2020, 11/03, 04/15/2015 Albumin/Creatinine Ratio Discontinued 022, 10/10/2019, 04/24/2015, Additional history exists COVID-19 Vaccine Completed 02/09/2024, 11/2022, 01/05/2022, Additional history exists Influenza Vaccine (FLU shot) Completed 02/09/2024, 01/18/2023, 12/17/2021, Additional history exists HPV (Gardasil) Vaccine Aged Out No lo nger eligible based on patient's age to complete this topic MENINGOCOCCAL (MENACTRA/MENVEO) Aged Out No longer eligible based on patient's age to complete this topic documented as of this encounter Medical Devices Implanted Type Area Director Of Retail Merchandising Device Identifier Shelf Expiration Date Model / Serial / Lot Lens 19.0 Mx60 - [id number] - [id number] Implanted:Qty: 1 on 11/02/2016 by Rob Padron MD at OR [facility] Right: Eye [employer] : SURGICAL 04/03/2019 MX60-19.0 / [id number] / [id number] documented as of this encounter Advance Directives [...] the patient have Health Care Power of Health Care Facilities Inspector? Yes, not currently available * Full Code Date Activated Date Inactivated Comments 11/02/2016 12:13 PM 11/02/2016 6:23 PM This order re flects the patients wishes and were consensually agreed upon. Healthcare Agents on File Name Relationship Healthcare Agent [facility] p Communication Digna Grover Adult Child Health Care Power of Attorne y Care Teams Employment Services Director Relationship Specialty Start Date End Date Itz Niño DO [address] [place] [address] PCP - General Family Medicine 03/15/22 documented as of this encounter
--- OUTSIDE RECORDS SUMMARY | 2024-06-25 20:44 | External Medical Summary | Summary of Care ---
Author Name Unknown Organization [facility] Address [address] [place] [address] Phone [phone] Care Team Providers Care Clam Bed Worker Name Role Phone Itz Niño DO Primary Care Provider Encounter Details Date Type Department Care Team (Late st Contact Info) Description 04/23/2024 Population Health External Data Unspecified Department Allergies Active Allergy Reactions Criticality Noted Date Comments Lisinopril Cough High 12/25/2019 Severe dry cough Losartan Diarrhea Medium 12/25/2019 documented as of this encounter (statuses as of 04/23/2024) Medications B-D INS SYR U/F II SHORT [...] EST 11/30/19 24 025 Active Omnipod 5 [id number] Pods Gen 5 Use as directed. Use [...] as of this encounter (statuses as of 04/23/2024) Active Problems Problem Noted Date Diagnosed Date Acute hyperkalemia 01/30/2024 Acute hypoxemic respiratory failure 01/30/2024 Acute non-ST segment elevation myocardial infarc tion 01/30/2024 Anemia 01/30/2024 Bifascicular bundle branch block 01/30/2024 Chronic acquired lymphedema 01/30/2024 Hypoxia 01/30/2024 Neuropathy 01/30/2024 Peripheral edema 01/30/2024 Sepsis 01/30/2024 Venous stasis ulcer of left lower extremity 01/03 [id number] renal failure 01/30/2024 Vitreous hemorrhage, right 03/25/2022 [...] type 2 diabetes mellitus 01/20/2021 History of [place] (myocardial infarction) 08/22/2020 Major depressive disorder, recurrent, mild 02/13 Cubital tunnel syndrome, right 02/14/2020 Unspecified inflammatory spondylopathy, cervical region 01/31/2020 Type 2 diabetes mellitus wit h hyperglycemia, with long-term current use of insulin 01/09/2020 Coronary artery disease invo lving [place] coronary artery of [place] heart with angina pectoris 12/28/2019 Controlled substance [...] as of this encounter (statuses as of 04/23/2024) Resolved Problems Problem Noted Date Diagnosed Date [...] as of this encounter (statuses as of 04/23/2024) Immunizations Name Administration Dates Next Due COVID-19 mRNA, LNP-s, No Pre serve, 2-Dose Series (Moderna) 02/16/2021,06/10/2020,05/13/2020 COVID-19, MRNA-LNP, PF, 30 M CG/0.3 mL, 12 YRS AND ABOVE, IM (PFIZER-Comirnaty) 02/09/2024,02/09/2023 Covid-19, Mrna, Lnp-s, Pf, B ivalent, 30 Mcg, IM, 12 yrs and above ([facility]) 01/05/2022 Diptheria/Tetanus (Adult) 02/02/2007 HEP A - [...] 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 Not [...] 05/03/2024 10:00 AM EST Office Visit Orthopaedics [facility] [address] [place] [phone] David Ahmadi PA-C [address] [place] [address] 07/12/2024 10:00 AM EDT Office Visit Cardiology, [facility] [address] [place] [address] Poonam Titus CRNP [address] [place] [address] [place] [address] Health Maintenance Due Date Last Done Comments [...] this encounter Medical Devices Implanted Type Area Almond Huller Device Identifier Shelf Expiration Date Model / Serial / Lot Lens 19.0 Mx60 - [id number] - [id number] Implanted:Qty: 1 on 11/02/2016 by Rob Padron MD at [facility] Right: Eye [employer] : SURGICAL 04/03/2019 MX60-19.0 / [id number] / [id number] documented as of this encounter Advance Directives [...] the patient have Health Care Power of Drill Press Operator? Yes, not currently available * Full Code Date Activated Date Inactivated Comments 11/02/2016 12:13 PM 11/02/2016 6:23 PM This order re flects the patients wishes and were consensually agreed upon. Healthcare Agents on File Name Relationship Healthcare Agent [facility] p Communication Digna Grover Adult Child Health Care Power of Attorne y Care Teams Clam Bed Worker Relationship Specialty Start Date End Date Itz Niño DO [address] [place] [address] PCP - General Family Medicine 03/15/22 documented as of this encounter
--- OUTSIDE RECORDS SUMMARY | 2024-06-25 20:44 | External Medical Summary | Summary of Care ---
Author Name Unknown Organization [facility] Address [address] [facility] [place] [address] Phone [phone] Care Team Providers Care Cardroom Attendant Name Role Phone Itz Niño DO Primary Care Provider Reason for Visit * Reason Onset Date Comments Medical Records Request 04/26/2024 Encounter Details Date Type Department Care Team (Late st Contact Info) Description 04/26/2024 Telephone Family Practice [facility] [address] [place] [address] Itz Niño DO [address] [place] [address] Medical Records Request Allergies Active Allergy Reactions Criticality Noted Date [...] EST 11/30/19 24 025 Active Omnipod 5 [id number] Pods Gen 5 Use as directed. Use [...] A1c goal of less than 7.0% ([facility]) Use as directed with insulin up to 5 times a day. E11.9 100 Each 3 04/08/19 25 Active oxyCODONE HCl 5 MG Oral Tablet (Oxy IR)Indications:Cub ital tunnel syndrome on right,Diabetic mononeuropathy associated with diabetes mellitus due to underlying condition ([facility]) Take 2 Tablets by mouth at bedtime [...] stasis ulcer of left lower extremity 01/03 Sxqfk-nh-iizpflv renal failure 01/30/2024 Vitreous hemorrhage, right 03/25/2022 [...] type 2 diabetes mellitus 01/20/2021 History of [place] (myocardial infarction) 08/22/2020 Major depressive disorder, recurrent, mild 02/13 Cubital tunnel syndrome, right 02/14/2020 Unspecified inflammatory spondylopathy, cervical region 01/31/2020 Type 2 diabetes mellitus wit h hyperglycemia, with long-term current use of insulin 01/09/2020 Coronary artery disease invo lving [place] coronary artery of [place] heart with angina pectoris 12/28/2019 Controlled substance [...] CG/0.3 mL, 12 YRS AND ABOVE, IM [facility] 02/09/2024,02/09/2023 Covid-19, Mrna, Lnp-s, Pf, B ivalent, [...] 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 (5 years old or older) Answer Entry Date Author No 12/25/2019 10:28 AM Jeremy Jensen RN documented in this encounter Miscellaneous Notes * Telephone Encounter - Laney Pak OSA - 04/26/2024 3:12 PM EST Home Care delivered is requesting medical record to verify need for patients equipment request. Forwarded to [facility] documented in this encounter Plan of Treatment Upcoming Encounters Date Type Department Care Team (Late st Contact Info) Description 05/03/2024 10:00 AM EST Office Visit Orthopaedics [facility] [address] [place] [phone] David Ahmadi PA-C [address] [place] [phone] 07/12/2024 10:00 AM EDT Office Visit Cardiology, [facility] [address] [place] [address] Poonam Titus CRNP [address] [place] [address] [place] [address] Health Maintenance Due Date Last Done Comments [...] this encounter Medical Devices Implanted Type Area Hard Metals Hand Engraver Device Identifier Shelf Expiration Date Model / Serial / Lot Lens 19.0 Mx60 - [id number] - [id number] Implanted:Qty: 1 on 11/02/2016 by Rob Padron MD at OR [facility] Right: Eye [employer] : SURGICAL 04/03/2019 MX60-19.0 / [id number] / [id number] documented as of this encounter Advance Directives [...] the patient have Health Care Power of Paper Cleaner? Yes, not currently available * Full Code Date Activated Date Inactivated Comments 11/02/2016 12:13 PM 11/02/2016 6:23 PM This order re flects the patients wishes and were consensually agreed upon. Healthcare Agents on File Name Relationship [facility] Communication Digna Grover Adult Child Health Care Power of Attorne y Care Teams Cardroom Attendant Relationship Specialty Start Date End Date Itz Niño DO [address] [place] [address] PCP - General Family Medicine 03/15/22 documented as of this encounter
--- OUTSIDE RECORDS SUMMARY | 2024-06-25 20:44 | External Medical Summary | Summary of Care ---
Author Name Unknown Organization [facility] Address [address] [facility] [address] [address] Phone [phone] Care Team Providers Care Clinical Director Name Role Phone Itz Niño DO Primary Care Provider Reason for Visit * Reason Comments Follow Up Pt presents for new series of bilateral knee Euflexxa injections Encounter Details Date Type Department Care Team (Latest Contact Info) Description 05/03/2024 10:00 AM EST Office Visit Orthopaedics [facility] [address] [place] [phone] David Ahmadi PA-C [address] [place] [phone] Bilateral primary osteoarthritis of knee* Allergies Active Allergy Reactions Criticality Noted Date Comments Lisinopril Cough High 12/25/2019 Severe dry cough Losartan Diarrhea Medium 12/25/2019 documented as of this encounter (statuses as of 05/03/2024) Medications B-D INS SYR U/F II SHORT [...] EST 11/30/19 24 025 Active Omnipod 5 [id number] Pods Gen 5 Use as directed. Use [...] with diabetes mellitus due to underlying condition ([facility]) Take 2 Tablets by mouth at bedtime as needed for Pain, Severe. 60 Tablet 04/16/19 25 Active Sildenafil Citrate 50 MG Oral TabletIndications: Erectile dysfunction, unspecified erectile dysfunction type Take 1 Tablet by mouth daily as needed for Erectile Dysfunction. 30 Tablet 1 04/28/19 25 Active Hospital, Clinic, or Other Facility Administered Medication Ordered Dose Route Frequency Start Date End Date Status Sodium Hyaluronate (Viscosup) (Euflexxa/Hyalgan) 20 MG/2ML inj 20 mgIndications:Bilateral primary osteoarthritis of knee 20 mg IX ONCE 05/03/2024 05/03/2024 Ended Sodium Hyaluronate (Viscosup) (Euflexxa/Hyalgan) 20 MG/2ML inj 20 mgIndications:Bilateral primary osteoarthritis of knee 20 mg IX ONCE 05/03/2024 05/03/2024 Ended documented as of this encounter (statuses as of 05/03/2024) Active Problems Problem Noted Date Diagnosed Date Acute hyperkalemia 01/30/2024 Acute hypoxemic respiratory failure 01/30/2024 Acute non-ST segment elevation myocardial infarc tion 01/30/2024 Anemia 01/30/2024 Bifascicular bundle branch block 01/30/2024 Chronic acquired lymphedema 01/30/2024 Hypoxia 01/30/2024 Neuropathy 01/30/2024 Peripheral edema 01/30/2024 Sepsis 01/30/2024 Venous stasis ulcer of left lower extremity 01/03 Sfuaz-jn-dgttprt renal failure 01/30/2024 Vitreous hemorrhage, right 03/25/2022 [...] type 2 diabetes mellitus 01/20/2021 History of [place] (myocardial infarction) 08/22/2020 Major depressive disorder, recurrent, mild 02/13 Cubital tunnel syndrome, right 02/14/2020 Unspecified inflammatory spondylopathy, cervical region 01/31/2020 Type 2 diabetes mellitus wit h hyperglycemia, with long-term current use of insulin 01/09/2020 Coronary artery disease invo lving [place] coronary artery of [place] heart with angina pectoris 12/28/2019 Controlled substance [...] as of this encounter (statuses as of 05/03/2024) Resolved Problems Problem Noted Date Diagnosed Date [...] as of this encounter (statuses as of 05/03/2024) Immunizations Name Administration Dates Next Due COVID-19 [...] 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 States that worked well for him and he is here today for a repeat injection series. The patient denies any new injury or fall. Radiographs on file. Has pain weight-bearing activity and intermittently rest. Denies any mechanical symptoms or instability. No swelling or redness. No calf pain. complete review of systems negative General: alert and oriented x3 male, no acute distress, appears currently stated age, pleasant, well nourished Skin: Right and left knee does not reveal any erythema, effusion, ecchymosis. The patient does havechronic skin changes around the ankles secondary to vascular chronic dysfunction. Neurovascular: Right and left lower extremity is neurovascularly intact with good sensation strength throughout, calf supple nontender, toes were mobile, +5 strength dorsi and plantar flexion of the foot Musculoskeletal: Right and left knee ROM 0, 5, 100 with pain at endpoints of extension and flexion,jointline tenderness, advanced crepitation noted in PFJ, femoral condyles are tender as well. Ligamentously stable regarding cruciate and collateral ligaments. Extensor mechanism intact. No obvious cystic change or masses the popliteal fossa. Pes anserine bursa and patellar tendon nontender. Hip and ankle atraumatic Bilat XR KNEE 4 OR MORE VIEWS - 08/23/2023 10:01 am HISTORY bilateral knee pain and swelling COMPARISON None TECHNIQUE Four views of each knee were obtained. FINDINGS Right knee: No fracture. Moderate to severe medial and severe patellofemoral compartment osteoarthritis with joint space narrowing and tricompartmental marginal osteophyte formation. Bulky suprapatellar osteophyte and intra- articular bodies are seen. Atherosclerotic vascular calcification. No sizeable joint effusion. Left knee: No fracture. Tricompartmental osteoarthritis, greatest and severe in the lateral compartment with joint space narrowing and marginal osteophyte formation. Genu valgum. No joint effusion. IMPRESSION IMPRESSION Severe bilateral knee osteoarthritis. No acute osseous abnormality. Impression: Bilateral knee osteoarthritis Plan: Today 's findings were discussed with the patient. They were educated regarding their diagnosis. Multiple treatment options discussed and agreed upon, including providing an approval and recommending authorization for bilateral knee CASTELL[place] injections with Euflexxa. The patient is in agreement. Can provide the same day. Will schedule in 1 week for 2nd injection series. Written consent and time-out obtained and performed today. The patient has no other questions or concerns. Pleased with today's care. Call sooner if needed. Patient instructed to call or return to clinic for fever or warmth and redness at injection site for potential infection. Patient also advised as to potential for steroid flare reaction including increased pain and redness at injection site which should be treated with ice and resolve within 24 hours. LG Joint Inj/Arthro: bilateral knee on 05/03/2024 10:24 AM Indications: pain Details: 22 G needle, anteromedial approach Medications (Right): (Euflexxa) Medications (Left): (Euflexxa) Outcome: tolerated well, no immediate complications Procedure, treatment alternatives, risks and benefits explained, specific risks discussed. Consent was given by the patient. Immediately prior to procedure a time out was called to verify the correctpatient, procedure, equipment, vp software support and site/side marked as required. Patient was prepped and draped in the usual sterile fashion. This chart was completed in part utilizing [employer] Speech Voice Recognition Software. Grammatical errors, random word insertions, prounoun errors, and incomplete sentences are an occasional consequence of this system due to software limitations, ambient noise, and hardware issues. Any formal questions or concerns about the content, text, or information contained within the body of this dictation should be directly addressed to the provider for clarification. documented in this encounter Nursing Notes * Antoinette Peter CMA - 05/03/2024 9:47 AM EST Pt presents for new series of bilateral knee Euflexxa injections Last injection completed on 10/13/23 Pt states pain 2/10 today in both knee's Pt states last series of injections worker wonderfully, he just started noticing issues ago 2 weeksago, 6 months of relief Pt is type II diabetic, last A1C 10.3 - Antoinette Boyd CMA documented in this encounter Plan of Treatment Upcoming Encounters Date Type Department Care Team (Late st Contact Info) Description 07/12/2024 10:00 AM EDT Office Visit Cardiology, [facility] [address] [facility] [place] [address] Poonam Titus CRNP [address] [place] [address] [place] [address] 11/01/2024 9:00 AM EDT Office Visit Orthopaedics [facility] [address] [place] [...] this encounter Medical Devices Implanted Type Area Leach Tank Tender Device Identifier Shelf Expiration Date Model / Serial / Lot Lens 19.0 Mx60 - [id number] - [id number] Implanted:Qty: 1 on 11/02/2016 by Rob Padron MD at [facility] Right: Eye [employer]OM[employer] : SURGICAL 04/03/2019 MX60-19.0 / [id number] / [id number] documented as of this encounter Procedures Procedure Name Priority Date/Time Associated Diagnosis Comments MS ARTHROCENTESIS ASPIR&/INJ MAJOR JT/BURSA W/O US Routine 05/03/2024 10:24 AM EST Bilateral primary osteoarthritis of knee documented in this encounter Results * MS ARTHROCENTESIS ASPIR&/INJ MAJOR JT/BURSA W/O US (05/03/2024 10:24 AM EST) Narrative David Ahmadi PA-C - 05/03/2024 10:24 AM EST David Ahmadi PA-C 05/03/2024 10:25 AM LG Joint Inj/Arthro: bilateral knee on 05/03/2024 10:24 AM Indications: pain Details: 22 G needle, anteromedial approach Medications (Right): (Euflexxa) Medications (Left): (Euflexxa) Outcome: tolerated well, no immediate complications Procedure, treatment alternatives, risks and benefits explained, specific risks discussed. Consent was given by the patient. Immediately prior to procedure a time out was called to verify the correct patient, procedure, equipment, vp software support and site/side marked as required. Patient was prepped and draped in the usual sterile fashion. David Ahmadi PA-C PROCDOC FORM Final R esult documented in this encounter Visit Diagnoses Diagnosis Bilateral primary osteoarthritis of knee- Primary documented in this encounter Administered Medications Inactive Administered Medications - up to 3 most recent administrations Medication Order MAR Action Action Date Dose Rate Site Sodium Hyaluronate (Viscosup) (Euflexxa/Hyalgan) 20 MG/2ML inj 20 mg 20 mg, Intra-Articular, ONCE, On [place] 05/03/24 at 1100, For 1 doseIndications:Bilateral primary osteoarthritis of knee Given 05/03/2024 10:45 AM EST 20 mg Knee Right Sodium Hyaluronate (Viscosup) (Euflexxa/Hyalgan) 20 MG/2ML inj 20 mg 20 mg, Intra-Articular, ONCE, On [place] 05/03/24 at 1100, For 1 doseIndications:Bilateral primary osteoarthritis of knee Given 05/03/2024 10:45 AM EST 20 mg Knee Left documented in this encounter Advance Directives * [...] the patient have Health Care Power of Assistant Terminal Manager? Yes, not currently available * Full Code Date Activated Date Inactivated Comments 11/02/2016 12:13 PM 11/02/2016 6:23 PM This order re flects the patients wishes and were consensually agreed upon. Healthcare Agents on File Name Relationship [facility] Digna Grover Adult Child Health Care Power of Attorne y Care Teams Clinical Director Relationship Specialty Start Date End Date Itz Niño DO [address] [place] [address] PCP - General Family Medicine 03/15/22 documented as of this encounter
--- OUTSIDE RECORDS SUMMARY | 2024-06-25 20:44 | External Medical Summary | Summary of Care ---
Author Name Unknown Organization [facility] Address [address] [facility] [place] [address] Phone [phone] Care Team Providers Care Housekeeping Aide Name Role Phone Isabell Niño DO Primary Care Provider Reason for Visit * Reason Onset Date Comments Medication Refill 04/28/2024 Encounter Details Date Type Department Care Team (Late st Contact Info) Description 04/28/2024 Refill Family Practice [facility] [address] [place] [id number] Isabell Niño DO [address] [place] [address] Erectile dysfunction, unspecified erectile dysfunction type Allergies Active Allergy Reactions Criticality Noted Date Comments Lisinopril Cough High 12/25/2019 Severe dry cough Losartan Diarrhea Medium 12/25/2019 documented as of this encounter (statuses as of 04/28/2024) Medications B-D INS SYR U/F II SHORT [...] mouth in the morning. 90 Tablet 3 4 6:44 PM EDT 11/16/19 24 Active Gabapentin 300 MG Oral Capsule (Neurontin)Indicat ions:Diabetic peripheral neuropathy (HCC) TAKE ONE CAPSULE BY MOUTH AT BEDTIME 90 Capsule 3 4 4:01 PM EST 11/30/19 24 025 Active Omnipod 5 [id number] Pods Gen 5 Use as directed. Use [...] hemoglobin A1c goal of less than 7.0% ([facility]) Use as directed with insulin [...] Dysfunction. 30 Tablet 1 04/28/19 25 Active Sildenafil Citrate 50 MG Oral TabletIndications: Erectile dysfunction, unspecified erectile dysfunction type Take 1 Tablet by mouth daily as needed for Erectile Dysfunction. 30 Tablet 1 02/14/20 24 025 Discontin ued(Refil l) documented as of this encounter (statuses as of 04/28/2024) Active Problems Problem Noted Date Diagnosed Date Acute hyperkalemia 01/30/2024 Acute hypoxemic respiratory failure 01/30/2024 Acute non-ST segment elevation myocardial infarc tion 01/30/2024 Anemia 01/30/2024 Bifascicular bundle branch block 01/30/2024 Chronic acquired lymphedema 01/30/2024 Hypoxia 01/30/2024 Neuropathy 01/30/2024 Peripheral edema 01/30/2024 Sepsis 01/30/2024 Venous stasis ulcer of left lower extremity 01/03 Saxwd-wc-lsvoqws renal failure 01/30/2024 Vitreous hemorrhage, right 03/25/2022 [...] type 2 diabetes mellitus 01/20/2021 History of [place] (myocardial infarction) 08/22/2020 Major depressive disorder, recurrent, mild 02/13 Cubital tunnel syndrome, right 02/14/2020 Unspecified inflammatory spondylopathy, cervical region 01/31/2020 Type 2 diabetes mellitus wit h hyperglycemia, with long-term current use of insulin 01/09/2020 Coronary artery disease invo lving [place] coronary artery of [place] heart with angina pectoris 12/28/2019 Controlled substance [...] as of this encounter (statuses as of 04/28/2024) Resolved Problems Problem Noted Date Diagnosed Date [...] as of this encounter (statuses as of 04/28/2024) Immunizations Name Administration Dates Next Due COVID-19 [...] 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 [...] encounter Miscellaneous Notes * Telephone Encounter - Alex Bonner RPh - 04/28/2024 3:33 PM EST Signed Prescriptions: Disp Refills Sildenafil Citrate 50 MG Oral Tablet 30 Tab*1 Sig: Take 1 Tabletby mouth daily as needed for Erectile Dysfunction.Authorizing Provider: ISABELL NIÑO User: ALEX BONNER documented in this encounter Plan of Treatment Upcoming Encounters Date Type Department Care Team (Late st Contact Info) Description 05/03/2024 10:00 AM EST Office Visit Orthopaedics [facility] [address] [place] [phone] David Ahmadi PA-C [address] [place] [phone] 07/12/2024 10:00 AM EDT Office Visit Cardiology, [facility] [address] [place] [address] Poonam Titus CRNP [address] [place] [address] Health Maintenance Due Date Last Done Comments [...] this encounter Medical Devices Implanted Type Area Gravel Weigher Device Identifier Shelf Expiration Date Model / Serial / Lot Lens 19.0 Mx60 - [id number] - [id number] Implanted:Qty: 1 on 11/02/2016 by Rob Padron MD at OR [facility] Right: Eye [employer] LOM[employer] : SURGICAL 04/03/2019 MX60-19.0 / [id number] / [id number] documented as of this encounter Visit Diagnoses Diagnosis Erectile dysfunction, unspecified erectile dysfunction type documented in this encounter Advance Directives * [...] the patient have Health Care Power of Paster Hat Lining? Yes, not currently available * Full Code Date Activated Date Inactivated Comments 11/02/2016 12:13 PM 11/02/2016 6:23 PM This order re flects the patients wishes and were consensually agreed upon. Healthcare Agents on File Name Relationship [facility] Digna Grover Adult Child Health Care Power of Attorne y Care Teams Housekeeping Aide Relationship Specialty Start Date End Date Isabell Niño DO [address] [place] [address] PCP - General Family Medicine 03/15/22 documented as of this encounter
--- OUTSIDE RECORDS SUMMARY | 2024-06-25 20:44 | External Medical Summary | Summary of Care ---
Author Name Unknown Organization [facility] [address] [facility] [address] Phone [phone] Care Team Providers Care Engraver Name Role Phone Itz Niño DO Primary Care Provider Reason for Visit * Reason Onset Date Comments [facility]: Screening 04/30/2024 Encounter Details Date Type Department Care Team (Late st Contact Info) Description 04/30/2024 Telephone [facility], [facility] [address] [facility] [place] [address] Amna Mansfield, [address] [place] [address] [facility]: Screening Allergies Active Allergy Reactions Criticality Noted Date Comments Lisinopril Cough High 12/25/2019 Severe dry cough Losartan Diarrhea Medium 12/25/2019 documented as of this encounter (statuses as of 04/30/2024) Medications B-D INS SYR U/F II SHORT [...] EST 11/30/19 24 025 Active Omnipod 5 [id number] Pods Gen 5 Use as directed. Use [...] Dysfunction. 30 Tablet 1 04/28/19 25 Active documented as of this encounter (statuses as of 04/30/2024) Active Problems Problem Noted Date Diagnosed Date Acute hyperkalemia 01/30/2024 Acute hypoxemic respiratory failure 01/30/2024 Acute non-ST segment elevation myocardial infarc tion 01/30/2024 Anemia 01/30/2024 Bifascicular bundle branch block 01/30/2024 Chronic acquired lymphedema 01/30/2024 Hypoxia 01/30/2024 Neuropathy 01/30/2024 Peripheral edema 01/30/2024 Sepsis 01/30/2024 Venous stasis ulcer of left lower extremity 01/03 Yxxht-vn-soizpob renal failure 01/30/2024 Vitreous hemorrhage, right 03/25/2022 [...] type 2 diabetes mellitus 01/20/2021 History of [place] (myocardial infarction) 08/22/2020 Major depressive disorder, recurrent, [...] as of this encounter (statuses as of 04/30/2024) Resolved Problems Problem Noted Date Diagnosed Date [...] as of this encounter (statuses as of 04/30/2024) Immunizations Name Administration Dates Next Due COVID-19 [...] 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 A review of this chart was completed and: Jignesh does not meet criteria for enrollment into [facility]. Referral Source: Monthly Proactive Eligibility List Criteria for Ineligibility: Not Located in Service Area Referring care team was notified via : Epic communication Recently declined [facility] no new concerns at this time documented in this encounter Plan of Treatment Upcoming Encounters Date Type Department Care Team (Late st Contact Info) Description 05/03/2024 10:00 AM EST Office Visit Orthopaedics [facility] [address] [place] [phone] David Ahmadi PA-C [address] [place] [phone] 07/12/2024 10:00 AM EDT Office Visit Cardiology, [facility] [address] [place] [address] Poonam Titus CRNP [address] [place] [address] Health Maintenance Due Date Last Done [...] this encounter Medical Devices Implanted Type Area Composition Instructor Device Identifier Shelf Expiration Date Model / Serial / Lot Lens 19.0 Mx60 - [id number] - [id number] Implanted:Qty: 1 on 11/02/2016 by Rob Padron MD at OR [facility] Right: Eye [employer]OM[employer] : SURGICAL 04/03/2019 MX60-19.0 / [id number] / [id number] documented as of this encounter Advance Directives [...] the patient have Health Care Power of Casing Running Machine Tender? Yes, not currently available * Full Code Date Activated Date Inactivated Comments 11/02/2016 12:13 PM 11/02/2016 6:23 PM This order re flects the patients wishes and were consensually agreed upon. Healthcare Agents on File Name Relationship [facility] Communication Digna Grover Adult Child Health Care Power of Attorne y Care Teams Engraver Relationship Specialty Start Date End Date Itz Niño DO [address] [place] [address] PCP - General Family Medicine 03/15/22 documented as of this encounter
--- OUTSIDE RECORDS SUMMARY | 2024-06-25 20:44 | External Medical Summary | Summary of Care ---
Author Name Unknown Organization [facility] [address] [facility] [place] [address] Phone [phone] Care Team Providers Care Stoneworking Belt Sander Name Role Phone Itz Niño DO Primary Care Provider Reason for Visit * Reason Comments Follow Up Pt presents for new series of bilateral knee Euflexxa injections Encounter Details Date Type Department Care Team (Latest Contact Info) Description 05/03/2024 10:00 AM EST Office Visit Orthopaedics [facility] [address] [place] [phone] David Ahmadi PA-C [address] [place] [...] EST 11/30/19 24 025 Active Omnipod 5 [id number] Pods Gen 5 Use as directed. Use [...] of less than 7.0% ([facility]) Use as directed with insulin up to 5 times a day. 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 Pleased with today 's care. Call sooner if needed. Patient instructed [...] called to verify the correctpatient, procedure, equipment, youth support worker and site/side marked as required. Patient was prepped and draped in the usual sterile fashion. This chart was completed in part utilizing [employer] Speech Voice Recognition Software. Grammatical errors, random [...] type II diabetic, last A1C 10.3 - nAtoinette Boyd CMA documented in this encounter Plan of Treatment Upcoming Encounters Date Type Department Care Team (Late st Contact Info) Description 07/12/2024 10:00 AM EDT Office Visit Cardiology, [facility] [address] [facility] [place] [address] Poonam Titus CRNP [address] [place] [address] [place] [address] 11/01/2024 9:00 AM EDT Office Visit Orthopaedics [facility] [address] [place] [phone] [...] this encounter Medical Devices Implanted Type Area Fire Claims Adjuster Device Identifier Shelf Expiration Date Model / Serial / Lot Lens 19.0 Mx60 - [id number] - [id number] Implanted:Qty: 1 on 11/02/2016 by Rob Padron MD at OR [facility] Right: Eye [employer] LOM[employer] : SURGICAL 04/03/2019 MX60-19.0 / [id number] / [id number] documented as of this encounter Procedures Procedure Name Priority Date/Time Associated Diagnosis Comments OR ARTHROCENTESIS ASPIR&/INJ MAJOR JT/BURSA W/O US Routine 05/03/2024 10:24 AM EST Bilateral primary osteoarthritis of knee documented in this encounter Results * OR ARTHROCENTESIS ASPIR&/INJ MAJOR JT/BURSA W/O US (05/03/2024 [...] to verify the correct patient, procedure, equipment, youth support worker and site/side marked as required. Patient was [...] the patient have Health Care Power of Twisting Frame Fixer? Yes, not currently available * Full Code Date Activated Date Inactivated Comments 11/02/2016 12:13 PM 11/02/2016 6:23 PM This order re flects the patients wishes and were consensually agreed upon. Healthcare Agents on File Name Relationship Healthcare [facility] Digna Grover Adult Child Health Care Power of Attorne y Care Teams Stoneworking Belt Sander Relationship Specialty Start Date End Date Itz Niño DO [address] [place] [address] PCP - General Family Medicine 03/15/22 documented as of this encounter
--- OUTSIDE RECORDS SUMMARY | 2024-06-25 20:44 | External Medical Summary | Summary of Care ---
Author Name Unknown Organization [facility] Address [address] [facility] [place] [address] Phone [phone] Care Team Providers Care As400 Developer Name Role Phone Isabell Niño DO Primary Care Provider Reason for Visit * Reason Onset Date Comments Medication Refill 04/06/2024 Encounter Details Date Type Department Care Team (Late st Contact Info) Description 04/06/2024 Refill Family Practice [facility] [address] [place] [address] Isabell Niño DO [address] [place] [address] Cubital tunnel syndrome on right; Diabetic mononeuropathy associated with diabetes mellitus due to underlying condition (HCC) Allergies Active Allergy Reactions Criticality Noted Date Comments Lisinopril Cough High 12/25/2019 Severe dry cough Losartan Diarrhea Medium 12/25/2019 documented as of this encounter (statuses as of 04/09/2024) Medications B-D INS SYR U/F II SHORT [...] 1:01 PM EST 04/12/19 24 025 Active NovoLIN R 100 UNIT/ML Injection Solution (insulin REGULAR human) INJECT UP TO 200 UNITS DAILY VIA INSULIN PUMP 200 mL 3 4 1:53 PM EDT 04/14/19 24 025 Active Clopidogrel Bisulfate 75 MG Oral Tablet (pLAVix) Take 1 Tablet by mouth in the morning. 90 Tablet 3 4 6:44 PM EDT 11/16/19 24 Active Gabapentin 300 MG Oral Capsule (Neurontin)Indicat ions:Diabetic peripheral neuropathy (HCC) TAKE ONE CAPSULE BY MOUTH AT BEDTIME 90 Capsule 3 4 4:01 PM EST 11/30/19 24 025 Active Omnipod 5 FcfH4A4 Pods Gen 5 Use as directed. Use [...] goal of less than 7.0% ([facility]) Use as directed with insulin up to 5 times a day. E11.9 100 Each 3 04/08/19 25 Active oxyCODONE HCl 5 MG Oral Tablet (Oxy IR)Indications:Cub ital tunnel syndrome on right,Diabetic mononeuropathy associated with diabetes mellitus due to underlying condition ([facility]) Take 2 Tablets by mouth at bedtime as needed for Pain, Severe. 10 Tablet 04/09/19 25 Active oxyCODONE HCl 5 MG Oral Tablet (Oxy IR)Indications:Cub ital tunnel syndrome on right,Diabetic mononeuropathy associated with diabetes mellitus due to underlying condition (HCC) Take 2 Tablets by mouth at bedtime as needed for Pain, Severe. 10 Tablet 03/27/20 24 025 Discontin ued(Refil l) documented as of this encounter (statuses as of 04/09/2024) Active Problems Problem Noted Date Diagnosed Date Acute hyperkalemia 01/30/2024 Acute hypoxemic respiratory failure 01/30/2024 Acute non-ST segment elevation myocardial infarc tion 01/30/2024 Anemia 01/30/2024 Bifascicular bundle branch block 01/30/2024 Chronic acquired lymphedema 01/30/2024 Hypoxia 01/30/2024 Neuropathy 01/30/2024 Peripheral edema 01/30/2024 Sepsis 01/30/2024 Venous stasis ulcer of left lower extremity 01/03 Xibny-sx-xqwdjnv renal failure 01/30/2024 Vitreous hemorrhage, right 03/25/2022 [...] insulin 01/09/2020 Coronary artery disease invo lving [place] coronary artery of [place] heart with angina pectoris 12/28/2019 Controlled substance [...] as of this encounter (statuses as of 04/09/2024) Resolved Problems Problem Noted Date Diagnosed Date [...] as of this encounter (statuses as of 04/09/2024) Immunizations Name Administration Dates Next Due COVID-19 [...] 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 Authorizing Provider: ISABELL NIÑO * Telephone Encounter - Nikki Goldman [facility] - 04/08/2024 7:28 PM ESTPending Prescriptions: Disp Refills oxyCODONE HCl 5 MG Oral Tablet (Oxy IR) 10 Tab*0 Sig: Take 2 Tablets by mouth at bedtime as needed for Pain, Severe. * Telephone Encounter - Nikki Goldman [facility] - 04/08/2024 7:24 PM EST I have reviewed the patients controlled substance dispensing history in the Prescription Drug Monitoring Program in compliance with the [facility] regulations before prescribing a controlled substance. PDMP checked on 04/08/2024. Pending Prescriptions: Disp Refills oxyCODONE HCl 5 MG Oral Tablet (Oxy IR) 10 Tab*0 Sig: Take 2 Tablets by mouth at bedtime as needed for Pain, Severe. Last Visit: 08/23/2023 (in office), Visit date not found (telemedicine) Next Visit: Visit date not found Date medication was last filled: 03/12/24 for 30 days supply and 03/27/24 for 10 days supply Date medication is due for refill: Original Rx from 03/12/24 was not due to be filled until 04/10/24. Rx also signed for 10 days supply on 03/27/24 (this would have been due 04/05/24) Pharmacy: [id number] [place] Is this request for a controlled substance? Yes and Urine Drug Screen was completed Toxicology results: Results for orders placed or performed in visit on 01/05/22 PAIN MANAGEMENT DRUG PANEL, URINE W/ INTERPRETATION Result Value Compliance Interpretation Based on the medication information provided: [...] U Negative Oxycodone Screen, U Positive (A) Valid Interpretation Normal Creatinine, U 318 Narrative Cutoff [...] in Results Review. Please approve if appropriate. iNkki Goss [facility] Clinical Pharmacist 04/08/2024, 7:25 PM documented in this encounter Plan of Treatment Upcoming Encounters Date Type Department Care Team (Late st Contact Info) Description 04/19/2024 9:15 AM EST Office Visit Orthopaedics [facility] [address] [facility] [place] [address] David Ahmadi PA-C [address] [place] [address] Health Maintenance Due Date Last Done Comments [...] this encounter Medical Devices Implanted Type Area Railroad Purchasing Agent Device Identifier Shelf Expiration Date Model / Serial / Lot Lens 19.0 Mx60 - [id number] - [id number] Implanted:Qty: 1 on 11/02/2016 by Rob Padron MD at OR [facility] Right: Eye [employer] LOM[employer] : SURGICAL 04/03/2019 MX60-19.0 / [id number] / [id number] documented as of this encounter Visit Diagnoses [...] the patient have Health Care Power of Target Trimmer? Yes, not currently available * Full Code Date Activated Date Inactivated Comments 11/02/2016 12:13 PM 11/02/2016 6:23 PM This order re flects the patients wishes and were consensually agreed upon. Healthcare Agents on File Name Relationship Healthcare Agent [facility] Communication Digna Grover Adult Child Health Care Power of Attorne y Care Teams As400 Developer Relationship Specialty Start Date End Date Isabell Niño DO [address] [place] [address] PCP - General Family Medicine 03/15/22 documented as of this encounter
--- OUTSIDE RECORDS SUMMARY | 2024-06-25 20:44 | External Medical Summary | Summary of Care ---
Author Name Unknown Organization [facility] Address [address] [facility] [place] [address] Phone [phone] Care Team Providers Care Legislative Assistant Name Role Phone Itz Niño DO Primary Care Provider Reason for Visit * Reason Onset Date Comments Health Maintenance 05/22/2024 Encounter Details Date Type Department Care Team (Late st Contact Info) Description 05/22/2024 Telephone Family Practice [facility] [address] [place] [address] Itz Niño DO [address] [place] [address] Health Maintenance Allergies Active Allergy Reactions Criticality [...] EST 11/30/19 24 025 Active Omnipod 5 [id number] Pods Gen 5 Use as directed. Use [...] hemoglobin A1c goal of less than 7.0% ([facility]) Use as directed with insulin up to 5 times a day. 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 60 Tablet 04/16/19 25 Active Sildenafil Citrate 50 MG Oral TabletIndications: Erectile dysfunction, unspecified erectile dysfunction type Take 1 Tablet by mouth daily as needed for Erectile Dysfunction. 30 Tablet 1 05/11/2024 7:26 AM EST 04/28/19 25 Active documented as of this encounter (statuses as of 05/22/2024) Active Problems Problem Noted Date Diagnosed Date Acute hyperkalemia 01/30/2024 Acute hypoxemic respiratory failure 01/30/2024 Acute non-ST segment elevation myocardial infarc tion 01/30/2024 Anemia 01/30/2024 Bifascicular bundle branch block 01/30/2024 Chronic acquired lymphedema 01/30/2024 Hypoxia 01/30/2024 Neuropathy 01/30/2024 Peripheral edema 01/30/2024 Sepsis 01/30/2024 Venous stasis ulcer of left lower extremity 01/03 Wkcss-qv-qtmotli renal failure 01/30/2024 Vitreous hemorrhage, right 03/25/2022 [...] type 2 diabetes mellitus 01/20/2021 History of [place] (myocardial infarction) 08/22/2020 Major depressive disorder, recurrent, mild 02/13 Cubital tunnel syndrome, right 02/14/2020 Unspecified inflammatory spondylopathy, cervical region 01/31/2020 Type 2 diabetes mellitus wit h hyperglycemia, with long-term current use of insulin 01/09/2020 Coronary artery disease invo lving [place] coronary artery of [place] heart with angina pectoris 12/28/2019 Controlled substance [...] 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 [...] Telephone Encounter - Elke Lunsford LPN - 05/22/2024 10:17 AM EST Care [...] 07/12/2024 10:00 AM EDT Office Visit Cardiology, [facility] [address] [place] [address] Poonam Titus CRNP [address] [place] [phone] 11/01/2024 9:00 AM EDT Office Visit Orthopaedics [facility] [address] [place] [phone] David Ahmadi PA-C [address] [place] [phone] Health Maintenance Due Date Last Done Comments [...] exists COVID-19 Vaccine (7 - Moderna risk 2023-) 08/08/2024 02/09/2024, 02/09/2023, 01/05/2022, Additional history exists Diabetic [...] this encounter Medical Devices Implanted Type Area Skin Pass Operator Device Identifier Shelf Expiration Date Model / Serial / Lot Lens 19.0 Mx60 - [id number] - [id number] Implanted:Qty: 1 on 11/02/2016 by Rob Padron MD at [facility] Right: Eye [employer] LOMB : SURGICAL 04/03/2019 MX60-19.0 / [id number] / [id number] documented as of this encounter Advance Directives [...] the patient have Health Care Power of Aerospace Project Engineer? Yes, not currently available * Full Code Date Activated Date Inactivated Comments 11/02/2016 12:13 PM 11/02/2016 6:23 PM This order re flects the patients wishes and were consensually agreed upon. Healthcare Agents on File Name Relationship Healthcare Agent [facility] Communication Digna Grover Adult Child Health Care Power of Attorne y Care Teams Legislative Assistant Relationship Specialty Start Date End Date Itz Niño DO [address] [place] [address] PCP - General Family Medicine 03/15/22 documented as of this encounter
--- OUTSIDE RECORDS SUMMARY | 2024-06-25 20:45 | External Medical Summary | Summary of Care ---
Author Name Unknown Organization [facility] Address [address] [place] [facility] [place] [address] Phone [phone] Care Team Providers Care Food Production Associate Name Role Phone Itz Niño DO Primary Care Provider Reason for Visit * Reason Comments Medication Refill Encounter Details Date Type Department Care Team (Late st Contact Info) Description 03/22/2024 Refill [facility]rology[facility]es[facility] [address] [place] [address] Enma Nguyen MD [address] [facility] [place] [address] Allergies Active Allergy Reactions Criticality Noted Date Comments Lisinopril Cough High 12/25/2019 Severe dry cough Losartan Diarrhea Medium 12/25/2019 documented as of this encounter (statuses as of 03/26/2024) Medications B-D INS SYR U/F II SHORT [...] DAILY VIA INSULIN PUMP 200 mL 3 11/28/2023 1:53 PM EDT 04/14/19 24 025 Active Insulin Syringe-Needle U-100 30G X 1/2" 0.5 MLIndications:Type 2 diabetes mellitus with hemoglobin A1c goal of less than 7.0% ([facility]) Use as directed with insulin up to 5 times a day. E11.9 100 Each 3 06/06/19 24 Active Clopidogrel Bisulfate 75 MG Oral Tablet (pLAVix) Take 1 Tablet by mouth in the morning. 90 Tablet 3 02/01/2024 6:44 PM EDT 11/16/19 24 Active Gabapentin 300 MG Oral Capsule (Neurontin)Indicat ions:Diabetic peripheral neuropathy ([facility]) TAKE ONE CAPSULE BY MOUTH AT BEDTIME 90 Capsule 3 03/22/2024 4:01 PM EST 11/30/19 24 025 Active Omnipod 5 [id number] Pods Gen 5 Use as directed. Use 1 pod every 2-3 days E11.9 45 Each 3 02/10/20 24 Active Sildenafil Citrate 50 MG Oral TabletIndications: Erectile dysfunction, unspecified erectile dysfunction type Take 1 Tablet by mouth daily as needed for Erectile Dysfunction. 30 Tablet 1 02/14/20 24 Active oxyCODONE HCl 5 MG Oral Tablet (Oxy IR)Indications:Cub ital tunnel syndrome on right,Diabetic mononeuropathy associated with diabetes mellitus due to underlying condition ([facility]) Take 2 Tablets by mouth at bedtime as needed for Pain, Severe. 10 Tablet 03/22/20 24 Active Metoprolol Succinate ER 25 MG Oral Tablet Extended Release 24 Hour (toPROL XL)Indications:HTN , goal below 130/80 Take 0.5 Tablets by mouth in the morning. 90 Tablet 3 03/22/20 24 Active documented as of this encounter (statuses as of 03/26/2024) Active Problems Problem Noted Date Diagnosed Date Acute hyperkalemia 01/30/2024 Acute hypoxemic respiratory failure 01/30/2024 Acute non-ST segment elevation myocardial infarc tion 01/30/2024 Anemia 01/30/2024 Bifascicular bundle branch block 01/30/2024 Chronic acquired lymphedema 01/30/2024 Hypoxia 01/30/2024 Neuropathy 01/30/2024 Peripheral edema 01/30/2024 Sepsis 01/30/2024 Venous stasis ulcer of left lower extremity 01/03 Mipxt-xn-lfaizou renal failure 01/30/2024 Vitreous hemorrhage, right 03/25/2022 [...] insulin 01/09/2020 Coronary artery disease invo lving [place] coronary artery of [place] heart with angina pectoris 12/28/2019 Controlled substance [...] as of this encounter (statuses as of 03/26/2024) Resolved Problems Problem Noted Date Diagnosed Date [...] as of this encounter (statuses as of 03/26/2024) Immunizations Name Administration Dates Next Due COVID-19 [...] 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 Answer Date of Assessment Author Yes 12/25/2019 10:28 AM EDT Jeremy Houser, RN * Are you blind or do [...] encounter Miscellaneous Notes * Addendum Note - Alicia Mckenna CPhT - 03/26/2024 8:14 AM ESTAddended by: ALICIA MCKENNA on: 03/26/2024 08:14 AM Modules accepted: Orders * Telephone Encounter - Alicia Mckenna CPhT - 03/26/2024 8:13 AM EST Pharmacy is requesting a 90-day supply, pre-edited RXs as such. Please review and approve if appropriate. Pending Prescriptions: Disp Refills Calcium Acetate (Phos Binder) 667 MG Oral*270 Ta*11 Sig: Take 1 Tablet by mouth 3 times a day. Last Visit: 07/27/2021 (in office), Visit date not found (telemedicine) Visit date not found If no future appointments scheduled, and last appointment is greater than a year ago, please schedule patient for an appointment Last date the medication was ordered: 01/12/23 Patient Phone Numbers Labs: Lab Results Component Value Date/Time CREAT 7.4 (H) 09/15/2023 09:05 AM CREAT 2.3 (H) 02/14/2020 01:39 PM POTASSIUM 4.6 09/15/2023 09:05 AM POTASSIUM 4.3 02/14/2020 01:39 PM TSH 2.70 12/25/2019 02:26 PM LDL 43 09/15/2023 09:05 AM LDL 103 12/26/2019 06:09 AM LDLCALC 88 10/26/2013 12:00 AM ALT 26 06/16/2021 11:12 AM ALT 27 12/25/2019 02:26 PM HGBA1C 10.3 (H) 09/15/2023 09:05 AM HGBA1C 10.8 (H) 12/26/2019 06:09 AM * Telephone Encounter - Alicia Mckenna CPhT - 03/26/2024 8:12 AM ESTNo prescriptions requested or ordered in this encounter * Telephone Encounter - Dianna Bridges CPhT - 03/23/2024 1:02 PM EST Did you pend patient's preferred pharmacy and medication before forwarding?yes Pharmacy: [facility] Pending Prescriptions: Disp Refills Calcium Acetate (Phos Binder) 667 MG Oral*270 Ta*11 Sig: Take 1 Tablet by mouth 3 times a day with meals. Last Visit: 07/27/2021 (in office), Visit date not found (telemedicine) Next Visit: Visit date not found If no future appointments scheduled, and last appointment is greater than a year ago, please schedule patient for a follow-up appointment Last date the medication was ordered: 01/12/23 Is this request for a controlled substance?No Urine Drug Screen: Results for orders placed or performed in [...] results can be found in Results Review. Patient Phone Numbers Labs: Lab Results Component Value Date/Time CREAT 7.4 (H) 09/15/2023 09:05 AM CREAT 2.3 (H) 02/14/2020 01:39 PM POTASSIUM 4.6 09/15/2023 09:05 AM POTASSIUM 4.3 02/14/2020 01:39 PM TSH 2.70 12/25/2019 02:26 PM LDL 43 09/15/2023 09:05 AM LDL 103 12/26/2019 06:09 AM LDLCALC 88 10/26/2013 12:00 AM ALT 26 06/16/2021 11:12 AM ALT 27 12/25/2019 02:26 PM HGBA1C 10.3 (H) 09/15/2023 09:05 AM HGBA1C 10.8 (H) 12/26/2019 06:09 AM documented in this encounter Plan of Treatment Upcoming Encounters Date Type Department Care Team (Late st Contact Info) Description 04/19/2024 9:15 AM EST Office Visit Orthopaedics [facility] [address] [place] [address] David Ahmadi PA-C [address] [place] [address] Health Maintenance Due Date Last Done Comments [...] 03/08/2006, 03/08/2006, Additional history exists Pneumococcal Vaccine: 65+ Years Completed 11/23/2019, 03/06/2018, 01/24/2012 Zoster Vaccines [...] this encounter Medical Devices Implanted Type Area Commissary Steward Device Identifier Shelf Expiration Date Model / Serial / Lot Lens 19.0 Mx60 - [id number] - [id number] Implanted:Qty: 1 on 11/02/2016 by Rob Padron MD at OR [facility] Right: Eye [employer] : SURGICAL 04/03/2019 MX60-19.0 / [id number] / [id number] documented as of this encounter Advance Directives [...] the patient have Health Care Power of Professional Programmer Analyst? Yes, not currently available * Full Code Date Activated Date Inactivated Comments 11/02/2016 12:13 PM 11/02/2016 6:23 PM This order re flects the patients wishes and were consensually agreed upon. Healthcare Agents on File Name Relationship Healthcare Agent [facility] p Communication Digna Grover Adult Child Health Care Power of Attorne y Care Teams Food Production Associate Relationship Specialty Start Date End Date Itz Niño DO [address] [place] [address] PCP - General Family Medicine 03/15/22 documented as of this encounter
--- OUTSIDE RECORDS SUMMARY | 2024-06-25 20:45 | External Medical Summary | Summary of Care ---
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 90 Tablet 3 4 1:41 PM EST 08/23/19 24 Active Clopidogrel Bisulfate 75 MG Oral Tablet (pLAVix) Take 1 Tablet by mouth in the morning. 90 Tablet 3 4 6:44 PM EDT 11/16/19 24 Active Gabapentin 300 MG Oral Capsule (Neurontin)Indicat ions:Diabetic peripheral neuropathy (HCC) TAKE ONE CAPSULE BY MOUTH AT BEDTIME 90 Capsule 3 4 5:21 PM EDT 11/30/19 24 025 Active Omnipod 5 [id number] Pods Gen 5 Use as directed. Use [...] with diabetes mellitus due to underlying condition ([facility]) Take 2 Tablets by mouth at bedtime as needed for Pain, Severe. 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 60 Tablet 4 9:00 AM EDT 01/17/20 24 024 Discontin ued(Refil l) documented as of this encounter (statuses as of 03/12/2024) Active Problems Problem Noted Date Diagnosed Date Acute hyperkalemia 01/30/2024 Acute hypoxemic respiratory failure 01/30/2024 Acute non-ST segment elevation myocardial infarc tion 01/30/2024 Anemia 01/30/2024 Bifascicular bundle branch block 01/30/2024 Chronic acquired lymphedema 01/30/2024 Hypoxia 01/30/2024 Neuropathy 01/30/2024 Peripheral edema 01/30/2024 Sepsis 01/30/2024 Venous stasis ulcer of left lower extremity 01/03 Wgszj-wt-dtnplfy renal failure 01/30/2024 Vitreous hemorrhage, right 03/25/2022 [...] type 2 diabetes mellitus 01/20/2021 History of [place] (myocardial infarction) 08/22/2020 Major depressive disorder, recurrent, mild 02/13 Cubital tunnel syndrome, right 02/14/2020 Unspecified inflammatory spondylopathy, cervical region 01/31/2020 Type 2 diabetes mellitus wit h hyperglycemia, with long-term current use of insulin 01/09/2020 Coronary artery disease invo lving [place] coronary artery of [place] heart with angina pectoris 12/28/2019 Controlled substance [...] as of this encounter (statuses as of 03/12/2024) Resolved Problems Problem Noted Date Diagnosed Date [...] as of this encounter (statuses as of 03/12/2024) Immunizations Name Administration Dates Next Due COVID-19 [...] 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 Authorizing Provider: ISABELL NIÑO * Telephone Encounter - Sandeep Inman [facility] - 03/09/2024 10:29 AM ESTPending Prescriptions: Disp Refills oxyCODONE HCl 5 MG Oral Tablet (Oxy IR) 60 Tab*0 Sig: Take 2 Tablets by mouth at bedtime as needed for Pain, Severe. * Telephone Encounter - Sandeep Inman [facility] - 03/09/2024 10:29 AM EST I have reviewed the patients controlled substance dispensing history in the Prescription Drug Monitoring Program in compliance with the [facility] regulations before prescribing a controlled substance. PDMP checked on 03/09/2024. Pending Prescriptions: Disp Refills oxyCODONE HCl 5 MG Oral Tablet (Oxy IR) 60 Tab*0 Sig: Take 2 Tablets by mouth at bedtime as needed for Pain, Severe. Last Visit: 08/23/2023 (in office), Visit date not found (telemedicine) Next Visit: Visit date not found Date medication was last filled: 01-18-24 Date medication is due for refill: 02-16-24 Pharm[id number]ON Is this request for a controlled substance? [...] Rivera.Ph. Clinical Pharmacist [facility] ([facility] [address] [place] [address] [address] [place] [address] MC: [phone] 03/09/2024,10:29 AM documented in this encounter Plan of Treatment Upcoming Encounters Date Type Department Care Team (Late st Contact Info) Description 04/19/2024 9:15 AM EST Office [facility] [place] [address] David Ahmadi PA-C [address] [place] [address] Health Maintenance Due Date Last Done Comments [...] this encounter Medical Devices Implanted Type Area Mortgage Analyst Device Identifier Shelf Expiration Date Model / Serial / Lot Lens 19.0 Mx60 - [id number] - [id number] Implanted:Qty: 1 on 11/02/2016 by Rob Padron MD at [facility] Right: Eye [employer] : SURGICAL 04/03/2019 MX60-19.0 / [id number] / [id number] documented as of this encounter Visit Diagnoses [...] the patient have Health Care Power of Spray Operator? Yes, not currently available * Full Code Date Activated Date Inactivated Comments 11/02/2016 12:13 PM 11/02/2016 6:23 PM This order re flects the patients wishes and were consensually agreed upon. Healthcare Agents on File Name Relationship Healthcare Agent [facility] p Communication Digna Grover Adult Child Health Care Power of Attorne y Care Teams Director Of Collections And Archives Relationship Specialty Start Date End Date Isabell Niño DO [address] [place] [address] PCP - General Family Medicine 03/15/22 documented as of this encounter
--- OUTSIDE RECORDS SUMMARY | 2024-06-25 20:45 | External Medical Summary | Summary of Care ---
Author Name Unknown Organization [facility] Address [address] [facility] [place] [address] Phone [phone] Care Team Providers Care Social Services Director Name Role Phone Itz Niño DO Primary Care Provider Encounter Details Date Type Department Care Team (Late st Contact Info) Description 03/21/2024 Population Health External Data Unspecified Department Allergies Active Allergy Reactions Criticality Noted Date Comments Lisinopril Cough High 12/25/2019 Severe dry cough Losartan Diarrhea Medium 12/25/2019 documented as of this encounter (statuses as of 03/21/2024) Medications B-D INS SYR U/F II SHORT [...] A1c goal of less than 7.0% ([facility]) Use as directed with insulin up to 5 times a day. E11.9 100 Each 3 06/06/19 24 Active Metoprolol Succinate ER 25 MG Oral Tablet Extended Release 24 Hour (toPROL XL)Indications:HTN , goal below 130/80 Take 1 Tablet by mouth in the morning. 90 Tablet 3 03/02/2024 1:41 PM EST 08/23/19 24 Active Clopidogrel Bisulfate 75 MG Oral Tablet (pLAVix) Take 1 Tablet by mouth in the morning. 90 Tablet 3 02/01/2024 6:44 PM EDT 11/16/19 24 Active Gabapentin 300 MG Oral Capsule (Neurontin)Indicat ions:Diabetic peripheral neuropathy (HCC) TAKE ONE CAPSULE BY MOUTH AT BEDTIME 90 Capsule 3 11/30/2023 5:21 PM EDT 11/30/19 24 025 Active Omnipod 5 [id number] Pods Gen 5 Use as directed. Use [...] diabetes mellitus due to underlying condition ([facility]) Take 2 Tablets by mouth at bedtime as needed for Pain, Severe. 60 Tablet 03/12/20 24 Active documented as of this encounter (statuses as of 03/21/2024) Active Problems Problem Noted Date Diagnosed Date Acute hyperkalemia 01/30/2024 Acute hypoxemic respiratory failure 01/30/2024 Acute non-ST segment elevation myocardial infarc tion 01/30/2024 Anemia 01/30/2024 Bifascicular bundle branch block 01/30/2024 Chronic acquired lymphedema 01/30/2024 Hypoxia 01/30/2024 Neuropathy 01/30/2024 Peripheral edema 01/30/2024 Sepsis 01/30/2024 Venous stasis ulcer of left lower extremity 01/03 Pkclo-ir-okmxtoi renal failure 01/30/2024 Vitreous hemorrhage, right 03/25/2022 [...] type 2 diabetes mellitus 01/20/2021 History of [place] (myocardial infarction) 08/22/2020 Major depressive disorder, recurrent, [...] as of this encounter (statuses as of 03/21/2024) Resolved Problems Problem Noted Date Diagnosed Date [...] as of this encounter (statuses as of 03/21/2024) Immunizations Name Administration Dates Next Due COVID-19 [...] 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 Not [...] Jeremy Jensen RN documented in this encounter Plan of Treatment Upcoming Encounters Date Type Department Care Team (Late st Contact Info) Description 04/19/2024 9:15 AM EST Office Visit Orthopaedics [facility] [address] [place] [address] David Ahmadi PA-C [address] [place] [address] Health Maintenance Due Date Last Done Comments [...] this encounter Medical Devices Implanted Type Area Special Education Curriculum Specialist Device Identifier Shelf Expiration Date Model / Serial / Lot Lens 19.0 Mx60 - [id number] - [id number] Implanted:Qty: 1 on 11/02/2016 by Rob Padron MD at OR [facility] Right: Eye [employer] : SURGICAL 04/03/2019 MX60-19.0 / [id number] / [id number] documented as of this encounter Advance Directives [...] the patient have Health Care Power of Pipelayer? Yes, not currently available * Full Code Date Activated Date Inactivated Comments 11/02/2016 12:13 PM 11/02/2016 6:23 PM This order re flects the patients wishes and were consensually agreed upon. Healthcare Agents on File Name Relationship Healthcare Agent Relationshi p Communication Digna Grover Adult Child Health Care Power of Attorne y Care Teams Social Services Director Relationship Specialty Start Date End Date Itz Niño DO [address] [place] [address] PCP - General Family Medicine 03/15/22 documented as of this encounter
--- OUTSIDE RECORDS SUMMARY | 2024-06-25 20:45 | External Medical Summary | Summary of Care ---
Author Name Unknown Organization [facility] Address [address] [facility] [place] [address] Phone [phone] Care Team Providers Care City Bus Driver Name Role Phone Itz Niño DO Primary Care Provider Reason for Visit * Reason Comments Medication Refill Encounter Details Date Type Department Care Team (Late st Contact Info) Description 03/22/2024 Refill [facility] [address] [place] [address] Enma Nguyen MD [address] [place] [address] Allergies Active Allergy Reactions Criticality Noted Date [...] goal of less than 7.0% ([facility]) Use as directed with insulin up to 5 times a day. E11.9 100 Each 3 06/06/19 24 Active Clopidogrel Bisulfate 75 MG Oral Tablet (pLAVix) Take 1 Tablet by mouth in the morning. 90 Tablet 3 02/01/2024 6:44 PM EDT 11/16/19 24 Active Gabapentin 300 MG Oral Capsule (Neurontin)Indicat ions:Diabetic peripheral neuropathy ([facility]) TAKE ONE CAPSULE BY MOUTH AT BEDTIME 90 Capsule 3 03/22/2024 4:01 PM EST 11/30/19 24 025 Active Omnipod 5 [id number] Pods Gen 5 Use as directed. 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 [...] Entry Date Author No 12/25/2019 10:28 AM Jreemy Jensen RN documented in this encounter Miscellaneous [...] preferred pharmacy and medication before forwarding?yes Pharmacy: [facility] Pending Prescriptions: Disp Refills [...] 04/19/2024 9:15 AM EST Office Visit Orthopaedics [facility] [address] [place] [address] David Ahmadi PA-C [address] [place] [address] Health Maintenance Due Date Last Done Comments [...] this encounter Medical Devices Implanted Type Area Hide Mill Man Device Identifier Shelf Expiration Date Model / Serial / Lot Lens 19.0 Mx60 - [id number] - [id number] Implanted:Qty: 1 on 11/02/2016 by Rob Padron MD at OR [facility] Right: Eye [employer] : SURGICAL 04/03/2019 MX60-19.0 / [id number] / [id number] documented as of this encounter Advance Directives [...] the patient have Health Care Power of Sole Assessor? Yes, not currently available * Full Code Date Activated Date Inactivated Comments 11/02/2016 12:13 PM 11/02/2016 6:23 PM This order re flects the patients wishes and were consensually agreed upon. Healthcare Agents on File Name Relationship Healthcare Agent [facility] p Communication Digna Grover Adult Child Health Care Power of Attorne y Care Teams City Bus Driver Relationship Specialty Start Date End Date Itz Niño DO [address] [place] [address] PCP - General Family Medicine 03/15/22 documented as of this encounter
--- OUTSIDE RECORDS SUMMARY | 2024-06-25 20:45 | External Medical Summary | Summary of Care ---
Author Name Unknown Organization [facility] Address [address] [place] [address] Phone [phone] Care Team Providers Care Tire Cord Weaver Name Role Phone Itz Niño DO Primary Care Provider Reason for Visit * Reason Onset Date Comments Med Request 03/15/2024 Encounter Details Date Type Department Care Team (Late st Contact Info) Description 03/15/2024 Telephone Orthopaedics [facility] [address] [place] [address] Charlee Ahmadi PA-C [address] [place] [address] Med Request Allergies Active Allergy Reactions Criticality Noted Date Comments Lisinopril Cough High 12/25/2019 Severe dry cough Losartan Diarrhea Medium 12/25/2019 documented as of this encounter (statuses as of 03/15/2024) Medications B-D INS SYR U/F II SHORT [...] TABLET BY MOUTH DAILY 90 Tablet 3 11/17/2023 7:38 AM EDT 04/12/19 24 025 Active [...] EDT 11/30/19 24 025 Active Omnipod 5 [id number] Pods Gen 5 Use as directed. Use [...] with diabetes mellitus due to underlying condition ([facility]) Take 2 Tablets by mouth at bedtime as needed for Pain, Severe. 60 Tablet 03/12/20 24 Active documented as of this encounter (statuses as of 03/15/2024) Active Problems Problem Noted Date Diagnosed Date Acute hyperkalemia 01/30/2024 Acute hypoxemic respiratory failure 01/30/2024 Acute non-ST segment elevation myocardial infarc tion 01/30/2024 Anemia 01/30/2024 Bifascicular bundle branch block 01/30/2024 Chronic acquired lymphedema 01/30/2024 Hypoxia 01/30/2024 Neuropathy 01/30/2024 Peripheral edema 01/30/2024 Sepsis 01/30/2024 Venous stasis ulcer of left lower extremity 01/03 Eoutm-xy-femudyh renal failure 01/30/2024 Vitreous hemorrhage, right 03/25/2022 [...] type 2 diabetes mellitus 01/20/2021 History of [place] (myocardial infarction) 08/22/2020 Major depressive disorder, recurrent, mild 02/13 Cubital tunnel syndrome, right 02/14/2020 Unspecified inflammatory spondylopathy, cervical region 01/31/2020 Type 2 diabetes mellitus wit h hyperglycemia, with long-term current use of insulin 01/09/2020 Coronary artery disease invo lving [place] coronary artery of [place] heart with angina pectoris 12/28/2019 Controlled substance [...] as of this encounter (statuses as of 03/15/2024) Resolved Problems Problem Noted Date Diagnosed Date [...] as of this encounter (statuses as of 03/15/2024) Immunizations Name Administration Dates Next Due COVID-19 [...] 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 Route to [id number] Is there radiological proof(x-ray, cat scan, mri of osteoarthritis? 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 Office Information: Prescriber: charlee ahmadi * Telephone Encounter - Vicky Vazquez MED ASSIST - 03/15/2024 9:35 AM EST ----- Message from Charlee Ahmadi sent at 10/13/2023 9:08 AM EDT ----- We will need to confirm approval 3 injections Euflexxa both knees after April 14, 2024 documented in this encounter Plan of Treatment Upcoming Encounters Date Type Department Care Team (Late st Contact Info) Description 04/19/2024 9:15 AM EST Office Visit Orthopaedics [facility] [address] [place] [address] Charlee Ahmadi PA-C [address] [place] [address] Health Maintenance Due Date Last Done Comments [...] this encounter Medical Devices Implanted Type Area Pleater Hand Device Identifier Shelf Expiration Date Model / Serial / Lot Lens 19.0 Mx60 - [id number] - [id number] Implanted:Qty: 1 on 11/02/2016 by Rob Padron MD at [facility] Right: Eye [employer] : SURGICAL 04/03/2019 MX60-19.0 / [id number] / [id number] documented as of this encounter Advance Directives [...] the patient have Health Care Power of Form Setter Helper? Yes, not currently available * Full Code Date Activated Date Inactivated Comments 11/02/2016 12:13 PM 11/02/2016 6:23 PM This order re flects the patients wishes and were consensually agreed upon. Healthcare Agents on File Name Relationship Healthcare Agent Relationshi p Communication Digna Grover Adult Child Health Care Power of Attorne y Care Teams Tire Cord Weaver Relationship Specialty Start Date End Date Itz Niño DO [address] [place] [address] PCP - General Family Medicine 03/15/22 documented as of this encounter
--- OUTSIDE RECORDS SUMMARY | 2024-06-25 20:45 | External Medical Summary | Summary of Care ---
Author Name Unknown Organization [facility] Address [address] [address] Phone [phone] Care Team Providers Care Furniture Crater Name Role Phone Itz Niño DO Primary Care Provider Reason for Visit * Reason Onset Date Comments Pre Cert/Prior Auth 03/15/2024 Encounter Details Date Type Department Care Team (Late st Contact Info) Description 03/15/2024 Telephone Orthopaedics [facility] [address] [place] [address] Charlee Ahmadi PA-C [address] [place] [address] Pre Cert/Prior Auth Allergies Active Allergy Reactions Criticality Noted Date [...] hemoglobin A1c goal of less than 7.0% ([facility]) Use as directed with insulin [...] EDT 11/30/19 24 025 Active Omnipod 5 [id number] Pods Gen 5 Use as directed. 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 Route to [id number] Is there radiological proof(x-ray, cat scan, mri [...] 04/19/2024 9:15 AM EST Office Visit Orthopaedics [facility] [address] [place] [address] Charlee Ahmadi PA-C [address] [place] [address] Health Maintenance Due Date Last Done Comments [...] this encounter Medical Devices Implanted Type Area Engineer Conductor Device Identifier Shelf Expiration Date Model / Serial / Lot Lens 19.0 Mx60 - [id number] - [id number] Implanted:Qty: 1 on 11/02/2016 by Rob Padron MD at [facility] Right: Eye [employer] : SURGICAL 04/03/2019 MX60-19.0 / [id number] / [id number] documented as of this encounter Advance Directives [...] the patient have Health Care Power of Ed Tech? Yes, not currently available * Full Code Date Activated Date Inactivated Comments 11/02/2016 12:13 PM 11/02/2016 6:23 PM This order re flects the patients wishes and were consensually agreed upon. Healthcare Agents on File Name Relationship Healthcare Agent [facility] p Communication Digna Grover Adult Child Health Care Power of Attorne y Care Teams Furniture Crater Relationship Specialty Start Date End Date Itz Niño DO [address] [place] [address] PCP - General Family Medicine 03/15/22 documented as of this encounter
--- OUTSIDE RECORDS SUMMARY | 2024-06-25 20:45 | External Medical Summary | Summary of Care ---
Author Name Unknown Organization [facility] Address [address] [facility] [place] [address] Phone [phone] Care Team Providers Care Coarse Wire Drawer Name Role Phone Isabell Niño DO Primary Care Provider Reason for Visit * Reason Onset Date Comments Medication Refill 04/06/2024 Encounter Details Date Type Department Care Team (Late st Contact Info) Description 04/06/2024 Refill Family Practice [facility] [address] [place] [address] Alex Altamirano MD [address] [place] [address] Type 2 diabetes mellitus with hemoglobin A1c goal of less than 7.0% ([facility]) Allergies Active Allergy Reactions Criticality Noted Date Comments Lisinopril Cough High 12/25/2019 Severe dry cough Losartan Diarrhea Medium 12/25/2019 documented as of this encounter (statuses as of 04/08/2024) Medications B-D INS SYR U/F II SHORT [...] EST 11/30/19 24 025 Active Omnipod 5 [id number] Pods Gen 5 Use as directed. Use [...] morning. 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 10 Tablet 03/27/20 24 Active Insulin Syringe-Needle U-100 30G X 1/2" 0.5 MLIndications:Type 2 diabetes mellitus with hemoglobin A1c goal of less than 7.0% ([facility]) Use as directed with insulin up to 5 times a day. E11.9 100 Each 3 04/08/19 25 Active Insulin Syringe-Needle U-100 30G X 1/2" 0.5 MLIndications:Type 2 diabetes mellitus with hemoglobin A1c goal of less than 7.0% ([facility]) Use as directed with insulin up to 5 times a day. E11.9 100 Each 3 06/06/19 24 025 Discontin ued(Refil l) documented as of this encounter (statuses as of 04/08/2024) Active Problems Problem Noted Date Diagnosed Date Acute hyperkalemia 01/30/2024 Acute hypoxemic respiratory failure 01/30/2024 Acute non-ST segment elevation myocardial infarc tion 01/30/2024 Anemia 01/30/2024 Bifascicular bundle branch block 01/30/2024 Chronic acquired lymphedema 01/30/2024 Hypoxia 01/30/2024 Neuropathy 01/30/2024 Peripheral edema 01/30/2024 Sepsis 01/30/2024 Venous stasis ulcer of left lower extremity 01/03 Zfceq-td-tecdehh renal failure 01/30/2024 Vitreous hemorrhage, right 03/25/2022 [...] type 2 diabetes mellitus 01/20/2021 History of [place] (myocardial infarction) 08/22/2020 Major depressive disorder, recurrent, mild 02/13 Cubital tunnel syndrome, right 02/14/2020 Unspecified inflammatory spondylopathy, cervical region 01/31/2020 Type 2 diabetes mellitus wit h hyperglycemia, with long-term current use of insulin 01/09/2020 Coronary artery disease invo lving [place] coronary artery of [place] heart with angina pectoris 12/28/2019 Controlled substance [...] as of this encounter (statuses as of 04/08/2024) Resolved Problems Problem Noted Date Diagnosed Date [...] as of this encounter (statuses as of 04/08/2024) Immunizations Name Administration Dates Next Due COVID-19 [...] 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 E11.9Authorizing Provider: ISABELL NIÑO User: MELITON GOLDMAN documented in this encounter Plan of Treatment Upcoming Encounters Date Type Department Care Team (Late st Contact Info) Description 04/19/2024 9:15 AM EST Office Visit Orthopaedics [facility] [address] [place] [address] David Ahmadi PA-C [address] [place] [address] Health Maintenance Due Date Last Done Comments [...] this encounter Medical Devices Implanted Type Area Document Analyst Device Identifier Shelf Expiration Date Model / Serial / Lot Lens 19.0 Mx60 - [id number] - [id number] Implanted:Qty: 1 on 11/02/2016 by Rob Padron MD at [facility] Right: Eye [employer] : SURGICAL 04/03/2019 MX60-19.0 / [id number] / [id number] documented as of this encounter Visit Diagnoses Diagnosis Type 2 diabetes mellitus with hemoglobin A1c goal of less than 7.0% (HCC) documented in this encounter Advance Directives [...] the patient have Health Care Power of Ambulance Officer? Yes, not currently available * Full Code Date Activated Date Inactivated Comments 11/02/2016 12:13 PM 11/02/2016 6:23 PM This order re flects the patients wishes and were consensually agreed upon. Healthcare Agents on File Name Relationship Healthcare Agent Breannany sherine Communication Digna Moon Adult Child Health Care Power of Attorne y Care Teams Coarse Wire Drawer Relationship Specialty Start Date End Date Isabell Niño DO [address] [place] [address] PCP - General Family Medicine 03/15/22 documented as of this encounter
--- OUTSIDE RECORDS SUMMARY | 2024-06-25 20:45 | External Medical Summary | Summary of Care ---
Author Name Unknown Organization [facility] Address [address] [place] [place] [facility] [place] [address] Phone [phone] Care Team Providers Care Event Marketing Manager Name Role Phone Itz Niño DO Primary Care Provider Reason for Visit * Reason Comments Medication Refill Encounter Details Date Type Department Care Team (Late st Contact Info) Description 03/22/2024 [facility]ill [facility] [address] [place] [address] Enma Nguyen MD [address] [facility] [place] [address] Allergies Active Allergy Reactions Criticality Noted Date [...] A1c goal of less than 7.0% ([facility]) Use as directed with insulin up to 5 times a day. E11.9 100 Each 3 06/06/19 24 Active Clopidogrel Bisulfate 75 MG Oral Tablet (pLAVix) Take 1 Tablet by mouth in the morning. 90 Tablet 3 02/01/2024 6:44 PM EDT 11/16/19 24 Active Gabapentin 300 MG Oral Capsule (Neurontin)Indicat ions:Diabetic peripheral neuropathy ([facility]) TAKE ONE CAPSULE BY MOUTH AT BEDTIME 90 Capsule 3 03/22/2024 4:01 PM EST 11/30/19 24 025 Active Omnipod 5 [id number] Pods Gen 5 Use as directed. 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 [address] [place] [address] David Ahmadi PA-C [address] [place] [address] Health Maintenance Due Date Last Done Comments [...] this encounter Medical Devices Implanted Type Area Plasticator Device Identifier Shelf Expiration Date Model / Serial / Lot Lens 19.0 Mx60 - [id number] - [id number] Implanted:Qty: 1 on 11/02/2016 by Rob Padron MD at [facility] Right: Eye [employer] : SURGICAL 04/03/2019 MX60-19.0 / [id number] / [id number] documented as of this encounter Advance Directives [...] the patient have Health Care Power of Lead Systems Engineer? Yes, not currently available * Full Code Date Activated Date Inactivated Comments 11/02/2016 12:13 PM 11/02/2016 6:23 PM This order re flects the patients wishes and were consensually agreed upon. Healthcare Agents on File Name Relationship Healthcare Agent [facility] Communication Digna Grover Adult Child Health Care Power of Attorne y Care Teams Event Marketing Manager Relationship Specialty Start Date End Date Itz Niño DO [address] [place] [address] PCP - General Family Medicine 03/15/22 documented as of this encounter
--- OUTSIDE RECORDS SUMMARY | 2024-06-25 20:46 | External Medical Summary | Summary of Care ---
Author Name Unknown Organization [facility] Address [address] [facility] [place] [address] Phone [phone] Care Team Providers Care Aircraft Systems Repairer Name Role Phone Itz Niño DO Primary Care Provider Reason for Visit * Reason Onset Date Comments Forms Request 02/15/2024 Needs correction s of form from 01.25.24 Encounter Details Date Type Department Care Team (Late st Contact Info) Description 02/15/2024 Telephone Family Practice [facility] [address] [place] [id number] Itz Niño DO [address] [place] [address] Forms Request (Needs corrections of form f... Allergies Active Allergy Reactions Criticality Noted Date Comments Lisinopril Cough High 12/25/2019 Severe dry cough Losartan Diarrhea Medium 12/25/2019 documented as of this encounter (statuses as of 02/21/2024) Medications B-D INS SYR U/F II SHORT [...] A1c goal of less than 7.0% ([facility]) Use as directed with insulin up to 5 times a day. E11.9 100 Each 3 06/06/19 24 Active Metoprolol Succinate ER 25 MG Oral Tablet Extended Release 24 Hour (toPROL XL)Indications:HTN , goal below 130/80 Take 1 Tablet by mouth in the morning. 90 Tablet 3 11/28/2023 1:53 PM EDT 08/23/19 24 Active Clopidogrel Bisulfate 75 MG Oral Tablet (pLAVix) Take 1 Tablet by mouth in the morning. 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 60 Tablet 01/18/2024 9:00 AM EDT 01/17/20 24 Active Omnipod 5 [id number] Pods Gen 5 Use as directed. Use 1 pod every 2-3 days E11.9 45 Each 3 02/10/20 24 Active Sildenafil Citrate 50 MG Oral TabletIndications: Erectile dysfunction, unspecified erectile dysfunction type Take 1 Tablet by mouth daily as needed for Erectile Dysfunction. 30 Tablet 1 02/14/20 24 Active documented as of this encounter (statuses as of 02/21/2024) Active Problems Problem Noted Date Diagnosed Date Acute hyperkalemia 01/30/2024 Acute hypoxemic respiratory failure 01/30/2024 Acute non-ST segment elevation myocardial infarc tion 01/30/2024 Anemia 01/30/2024 Bifascicular bundle branch block 01/30/2024 Chronic acquired lymphedema 01/30/2024 Hypoxia 01/30/2024 Neuropathy 01/30/2024 Peripheral edema 01/30/2024 Sepsis 01/30/2024 Venous stasis ulcer of left lower extremity 01/03 Ssszl-eh-cftrgoa renal failure 01/30/2024 Vitreous hemorrhage, right 03/25/2022 [...] insulin 01/09/2020 Coronary artery disease invo lving [place] coronary artery of [place] heart with angina pectoris 12/28/2019 Controlled substance [...] as of this encounter (statuses as of 02/21/2024) Resolved Problems Problem Noted Date Diagnosed Date [...] as of this encounter (statuses as of 02/21/2024) Immunizations Name Administration Dates Next Due COVID-19 [...] 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 * Telephone Encounter - Amaris Wolf OSA - 02/21/2024 10:52 AM EST Caller requesting the following information to be faxed: Name/Company of caller: [facility] Information requested to be faxed: Form was sent on 02/08 for it to be recompleted in section 1, 2 and 3 Fax number: [phone] Attention to Name/Company: [facility] Any additional information?: Please complete and refax [email or web address] for them to complete this order * Telephone Encounter - Gerber Card OSA - 02/15/2024 11:27 AM EST [facility] called. PH [phone] Stated physician order for diabetic supplies received 01.25.24 was returned with errors. They need Steps 1, 2 and 3 filled out in full. Please refax when done. fax [phone] documented in this encounter Plan of Treatment Upcoming Encounters Date Type Department Care Team (Late st Contact Info) Description 04/19/2024 9:15 AM EST Office Visit Orthopaedics [facility] [address] [place] [address] David Ahmadi PA-C [address] [place] [address] Health Maintenance Due Date Last Done Comments [...] this encounter Medical Devices Implanted Type Area Certified Pharmacy Technician Device Identifier Shelf Expiration Date Model / Serial / Lot Lens 19.0 Mx60 - [id number] - [id number] Implanted:Qty: 1 on 11/02/2016 by Rob Padron MD at [facility] Right: Eye [employer] : SURGICAL 04/03/2019 MX60-19.0 / [id number] / [id number] documented as of this encounter Advance Directives [...] the patient have Health Care Power of Dictating Machine Mechanic? Yes, not currently available * Full Code Date Activated Date Inactivated Comments 11/02/2016 12:13 PM 11/02/2016 6:23 PM This order re flects the patients wishes and were consensually agreed upon. Healthcare Agents on File Name Relationship Healthcare Agent Relationshi p Communication Digna Grover Adult Child Health Care Power of Attorne y Care Teams Aircraft Systems Repairer Relationship Specialty Start Date End Date Itz Niño DO [address] [place] [address] PCP - General Family Medicine 03/15/22 documented as of this encounter
--- OUTSIDE RECORDS SUMMARY | 2024-06-25 20:46 | External Medical Summary | Summary of Care ---
Author Name Unknown Organization [facility] Address [address] [place] [address] Phone [phone] Care Team Providers Care Housing Specialist Name Role Phone Itz Niño DO Primary Care Provider Encounter Details Date Type Department Care Team (Late st Contact Info) Description 02/20/2024 Population Health External Data Unspecified Department Allergies Active Allergy Reactions Criticality Noted Date Comments Lisinopril Cough High 12/25/2019 Severe dry cough Losartan Diarrhea Medium 12/25/2019 documented as of this encounter (statuses as of 02/20/2024) Medications B-D INS SYR U/F II SHORT [...] mellitus due to underlying condition ([facility]) Take 2 Tablets by mouth at bedtime as needed for Pain, Severe. 60 Tablet 01/18/2024 9:00 AM EDT 01/17/20 24 Active Omnipod 5 [id number] Pods Gen 5 Use as directed. Use 1 pod every 2-3 days E11.9 45 Each 3 02/10/20 24 Active Sildenafil Citrate 50 MG Oral TabletIndications: Erectile dysfunction, unspecified erectile dysfunction type Take 1 Tablet by mouth daily as needed for Erectile Dysfunction. 30 Tablet 1 02/14/20 24 Active documented as of this encounter (statuses as of 02/20/2024) Active Problems Problem Noted Date Diagnosed Date Acute hyperkalemia 01/30/2024 Acute hypoxemic respiratory failure 01/30/2024 Acute non-ST segment elevation myocardial infarc tion 01/30/2024 Anemia 01/30/2024 Bifascicular bundle branch block 01/30/2024 Chronic acquired lymphedema 01/30/2024 Hypoxia 01/30/2024 Neuropathy 01/30/2024 Peripheral edema 01/30/2024 Sepsis 01/30/2024 Venous stasis ulcer of left lower extremity 01/03 [id number] renal failure 01/30/2024 Vitreous hemorrhage, right 03/25/2022 [...] type 2 diabetes mellitus 01/20/2021 History of [place] (myocardial infarction) 08/22/2020 Major depressive disorder, recurrent, mild 02/13 Cubital tunnel syndrome, right 02/14/2020 Unspecified inflammatory spondylopathy, cervical region 01/31/2020 Type 2 diabetes mellitus wit h hyperglycemia, with long-term current use of insulin 01/09/2020 Coronary artery disease invo lving [place] coronary artery of [place] heart with angina pectoris 12/28/2019 Controlled substance [...] as of this encounter (statuses as of 02/20/2024) Resolved Problems Problem Noted Date Diagnosed Date [...] as of this encounter (statuses as of 02/20/2024) Immunizations Name Administration Dates Next Due COVID-19 [...] 04/19/2024 9:15 AM EST Office Visit Orthopaedics [facility] [address] [place] [address] David Ahmadi PA-C [address] [place] [address] Health Maintenance Due Date Last Done Comments [...] this encounter Medical Devices Implanted Type Area Entry Operator Device Identifier Shelf Expiration Date Model / Serial / Lot Lens 19.0 Mx60 - [id number] - [id number] Implanted:Qty: 1 on 11/02/2016 by Rob Padron MD at [facility] Right: Eye [employer] : SURGICAL 04/03/2019 MX60-19.0 / [id number] / [id number] documented as of this encounter Advance Directives [...] the patient have Health Care Power of Radar Scientist? Yes, not currently available * Full Code Date Activated Date Inactivated Comments 11/02/2016 12:13 PM 11/02/2016 6:23 PM This order re flects the patients wishes and were consensually agreed upon. Healthcare Agents on File Name Relationship Healthcare Agent [facility] p Communication Digna Grover Adult Child Health Care Power of Attorne y Care Teams Housing Specialist Relationship Specialty Start Date End Date Itz Niño DO [address] [place] [address] PCP - General Family Medicine 03/15/22 documented as of this encounter
--- OUTSIDE RECORDS SUMMARY | 2024-06-25 20:46 | External Medical Summary | Summary of Care ---
Author Name Unknown Organization [facility] Address [address] [place] [address] Phone [phone] Care Team Providers Care Director E Learning Name Role Phone Itz Niño DO Primary Care Provider Reason for Visit * Reason Onset Date Comments Appointment Canceled 11/29/2023 Encounter Details Date Type Department Care Team (Late st Contact Info) Description 11/29/2023 Telephone Ophthalmology, [facility] [address] [place] [address] Jignesh Ballard MD [address] [facility] [address] [place] [address] Appointment Canceled Allergies Active Allergy Reactions Criticality Noted Date Comments Lisinopril Cough High 12/25/2019 Severe dry cough Losartan Diarrhea Medium 12/25/2019 documented as of this encounter (statuses as of 02/10/2024) Medications B-D INS SYR U/F II SHORT [...] than 7.0% ([facility]) Use as directed with insulin up to 5 times a day. E11.9 100 Each 3 06/06/19 24 Active Metoprolol Succinate ER 25 MG Oral Tablet Extended Release 24 Hour (toPROL XL)Indications:HTN , goal below 130/80 Take 1 Tablet by mouth in the morning. 90 Tablet 3 4 1:53 PM EDT 08/23/19 24 Active Clopidogrel Bisulfate 75 MG Oral Tablet (pLAVix) Take 1 Tablet by mouth in the morning. 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 60 Tablet 4 11:29 AM EDT 10/12/19 24 024 Discontin ued(Refil l) documented as of this encounter (statuses as of 02/10/2024) Active Problems Problem Noted Date Diagnosed Date Acute hyperkalemia 01/30/2024 Acute hypoxemic respiratory failure 01/30/2024 Acute non-ST segment elevation myocardial infarc tion 01/30/2024 Anemia 01/30/2024 Bifascicular bundle branch block 01/30/2024 Chronic acquired lymphedema 01/30/2024 Hypoxia 01/30/2024 Neuropathy 01/30/2024 Peripheral edema 01/30/2024 Sepsis 01/30/2024 Venous stasis ulcer of left lower extremity 01/03 Cklxj-zo-cgdlkav renal failure 01/30/2024 Vitreous hemorrhage, right 03/25/2022 [...] type 2 diabetes mellitus 01/20/2021 History of [place] (myocardial infarction) 08/22/2020 Major depressive disorder, recurrent, mild 02/13 Cubital tunnel syndrome, right 02/14/2020 Unspecified inflammatory spondylopathy, cervical region 01/31/2020 Type 2 diabetes mellitus wit h hyperglycemia, with long-term current use of insulin 01/09/2020 Coronary artery disease invo lving [place] coronary artery of [place] heart with angina pectoris 12/28/2019 Controlled substance [...] as of this encounter (statuses as of 02/10/2024) Resolved Problems Problem Noted Date Diagnosed Date [...] as of this encounter (statuses as of 02/10/2024) Immunizations Name Administration Dates Next Due COVID-19 [...] 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 * Telephone Encounter - Aimee Leonard OSA - 02/07/2024 9:02 AM EST Spoke with patient and offered several appointments in [facility] with Dr. Clifford and patient states he is driving and wants a call back tomorrow. * Telephone Encounter - Ирина Ramsey OSA - 11/29/2023 2:50 PM EDT Called patient to cancel/reschedule appointment on 02/02. Pt did not wish to reschedule at this timeand wants called back in February. Needs to be reschedule/established with Venessa if pt doesn't want to travel to [place] to see Elio. documented in this encounter Plan of Treatment Upcoming Encounters Date Type Department Care Team (Late st Contact Info) Description 04/19/2024 8:45 AM EST Office Visit Orthopaedics [facility] [address] [place] [address] David Ahmadi PA-C [address] [place] [address] Health Maintenance Due Date Last Done Comments [...] this encounter Medical Devices Implanted Type Area Health Care Analyst Device Identifier Shelf Expiration Date Model / Serial / Lot Lens 19.0 Mx60 - [id number] - [id number] Implanted:Qty: 1 on 11/02/2016 by Rob Padron MD at OR [facility] Right: Eye [employer] : SURGICAL 04/03/2019 MX60-19.0 / [id number] / [id number] documented as of this encounter Advance Directives [...] the patient have Health Care Power of Accounting Analyst? Yes, not currently available * Full Code Date Activated Date Inactivated Comments 11/02/2016 12:13 PM 11/02/2016 6:23 PM This order re flects the patients wishes and were consensually agreed upon. Healthcare Agents on File Name Relationship Healthcare Agent [facility] Communication Digna Grover Adult Child Health Care Power of Attorne y Care Teams Director E Learning Relationship Specialty Start Date End Date Itz Niño DO [address] [address] PCP - General Family Medicine 03/15/22 documented as of this encounter
--- OUTSIDE RECORDS SUMMARY | 2024-06-25 20:46 | External Medical Summary | Summary of Care ---
Author Name Unknown Organization [facility] Address [address] [facility] [place] [address] Phone [phone] Care Team Providers Care Pouncing Lathe Operator Name Role Phone Itz Niño DO Primary Care Provider Reason for Visit * Reason Comments Medication Refill Encounter Details Date Type Department Care Team (Late st Contact Info) Description 02/29/2024 Refill Family Practice [facility] [address] [place] [address] Itz Niño DO [address] [place] [address] Cubital tunnel syndrome on right; Diabetic mononeuropathy associated with diabetes mellitus due to underlying condition (HCC) Allergies Active Allergy Reactions Criticality Noted Date Comments Lisinopril Cough High 12/25/2019 Severe dry cough Losartan Diarrhea Medium 12/25/2019 documented as of this encounter (statuses as of 02/29/2024) Medications B-D INS SYR U/F II SHORT [...] hemoglobin A1c goal of less than 7.0% ([facility]) Use as directed with insulin up to [...] with diabetes mellitus due to underlying condition ([facility]) Take 2 Tablets by mouth at bedtime as needed for Pain, Severe. 60 Tablet 01/18/2024 9:00 AM EDT 01/17/20 24 Active Omnipod 5 [id number] Pods Gen 5 Use as directed. Use 1 pod every 2-3 days E11.9 45 Each 3 02/10/20 24 Active Sildenafil Citrate 50 MG Oral TabletIndications: Erectile dysfunction, unspecified erectile dysfunction type Take 1 Tablet by mouth daily as needed for Erectile Dysfunction. 30 Tablet 1 02/14/20 24 Active documented as of this encounter (statuses as of 02/29/2024) Active Problems Problem Noted Date Diagnosed Date Acute hyperkalemia 01/30/2024 Acute hypoxemic respiratory failure 01/30/2024 Acute non-ST segment elevation myocardial infarc tion 01/30/2024 Anemia 01/30/2024 Bifascicular bundle branch block 01/30/2024 Chronic acquired lymphedema 01/30/2024 Hypoxia 01/30/2024 Neuropathy 01/30/2024 Peripheral edema 01/30/2024 Sepsis 01/30/2024 Venous stasis ulcer of left lower extremity 01/03 Vpogh-mn-zufiwyw renal failure 01/30/2024 Vitreous hemorrhage, right 03/25/2022 [...] insulin 01/09/2020 Coronary artery disease invo lving [place] coronary artery of [place] heart with angina pectoris 12/28/2019 Controlled substance [...] as of this encounter (statuses as of 02/29/2024) Resolved Problems Problem Noted Date Diagnosed Date [...] as of this encounter (statuses as of 02/29/2024) Immunizations Name Administration Dates Next Due COVID-19 [...] 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 Not on file [...] encounter Miscellaneous Notes * Telephone Encounter - Dianna Bridges CPhT - 02/29/2024 4:28 PM ESTNo prescriptions requested or ordered in this encounter documented in this encounter Plan of Treatment Upcoming Encounters Date Type Department Care Team (Late st Contact Info) Description 04/19/2024 9:15 AM EST Office Visit Orthopaedics [address] [place] [address] David Ahmadi PA-C [address] [place] [address] Health Maintenance Due Date Last Done Comments [...] this encounter Medical Devices Implanted Type Area Wood Heel Flap Trimmer Device Identifier Shelf Expiration Date Model / Serial / Lot Lens 19.0 Mx60 - [id number] - [id number] Implanted:Qty: 1 on 11/02/2016 by Rob Padron MD at [facility] Right: Eye [employer] : SURGICAL 04/03/2019 MX60-19.0 / [id number] / [id number] documented as of this encounter Visit Diagnoses [...] the patient have Health Care Power of Acting Teacher? Yes, not currently available * Full Code Date Activated Date Inactivated Comments 11/02/2016 12:13 PM 11/02/2016 6:23 PM This order re flects the patients wishes and were consensually agreed upon. Healthcare Agents on File Name Relationship [facility] Communication Digna Grover Adult Child Health Care Power of Attorne y Care Teams Pouncing Lathe Operator Relationship Specialty Start Date End Date Itz iNño DO [address] [place] [address] PCP - General Family Medicine 03/15/22 documented as of this encounter
--- OUTSIDE RECORDS SUMMARY | 2024-06-25 20:46 | External Medical Summary | Summary of Care ---
Author Name Unknown Organization [facility] Address [address] [place] [address] Phone [phone] Care Team Providers Care Associate Merchant Name Role Phone Itz Niño DO Primary Care Provider Reason for Visit * Reason Onset Date Comments Appointment Canceled 11/29/2023 Encounter Details Date Type Department Care Team (Late st Contact Info) Description 11/29/2023 Telephone Ophthalmology, [facility] [address] [place] [address] Jignesh Ballard MD [address] [facility] [address] [place] [address] Appointment Canceled Allergies Active Allergy Reactions Criticality Noted Date Comments Lisinopril Cough High 12/25/2019 Severe dry cough Losartan Diarrhea Medium 12/25/2019 documented as of this encounter (statuses as of 02/09/2024) Medications Medication Sig Dispensed Refills Start Date End Date Status B-D INS SYR U/F II SHORT 1/2U INCREMENT 0.3/30G with insulin 1 Box Dosing Unit 5 08/17/2016 Active Nitroglycerin 0.4 MG Sublingual Tablet Sublingual (NITROSTAT) Place 1 Tab under the tongue every 5 minutes as needed for Pain, Chest. 25 Tab 1 01/08/2020 Active Additional Information Patient not taking.Reported on 10/01/2022 Calcium Acetate (Phos Binder) 667 MG Oral Tablet (Phoslo) Take 1 Tablet by mouth 3 times a day with meals. 150 Tablet 11 01/12/2023 Active Atorvastatin Calcium 80 MG Oral Tablet (Lipitor) TAKE ONE TABLET BY MOUTH DAILY 90 Tablet 3 04/12/2023 04/11/19 25 Active NovoLIN R 100 UNIT/ML Injection Solution (insulin REGULAR human) INJECT UP TO 200 UNITS DAILY VIA INSULIN PUMP 200 mL 3 04/14/2023 04/13/19 25 Active Insulin Syringe-Needle U-100 30G X 1/2" 0.5 MLIndications:Type 2 diabetes mellitus with hemoglobin A1c goal of less than 7.0% (HCC) Use as directed with insulin up to 5 times a day. E11.9 100 Each 3 06/06/2023 Active Metoprolol Succinate ER 25 MG Oral Tablet Extended Release 24 Hour (toPROL XL)Indications:HTN, goal below 130/80 Take 1 Tablet by mouth in the morning. 90 Tablet 3 08/23/2023 Active Clopidogrel Bisulfate 75 MG Oral Tablet (pLAVix) Take 1 Tablet by mouth in the morning. 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 60 Tablet 10/12/2023 12/10/19 24 Discontinu ed(Refill) documented as of this encounter (statuses as of 02/09/2024) Active Problems Problem Noted Date Diagnosed Date Acute hyperkalemia 01/30/2024 Acute hypoxemic respiratory failure 01/30/2024 Acute non-ST segment elevation myocardial infarc tion 01/30/2024 Anemia 01/30/2024 Bifascicular bundle branch block 01/30/2024 Chronic acquired lymphedema 01/30/2024 Hypoxia 01/30/2024 Neuropathy 01/30/2024 Peripheral edema 01/30/2024 Sepsis 01/30/2024 Venous stasis ulcer of left lower extremity 01/03 Vhqid-fr-vfvvbzm renal failure 01/30/2024 Vitreous hemorrhage, right 03/25/2022 [...] type 2 diabetes mellitus 01/20/2021 History of GA (myocardial infarction) 08/22/2020 Major depressive disorder, recurrent, mild 02/13 Cubital tunnel syndrome, right 02/14/2020 Unspecified inflammatory spondylopathy, cervical region 01/31/2020 Type 2 diabetes mellitus wit h hyperglycemia, with long-term current use of insulin 01/09/2020 Coronary artery disease invo [place]ving [place] coronary artery of [place] heart with angina pectoris 12/28/2019 Controlled substance agreement signed 06/04/2019 Morbid obesity with body mass index of 40.0-44.9 in adult 03/06/2018 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 Impotence of organic origin 02/20/2009 documented as of this encounter (statuses as of 02/09/2024) Resolved Problems Problem Noted Date Diagnosed Date Resolved Date Hyperlipidemia 12/17/2021 03/09/2022 Hypertensive kidney disease with chronic kidney disease stage IV 01/09/2020 01/04/2022 Overview: With HF on PL GRIFFIN (acute kidney injury) 12/28/2019 Cardiorenal syndrome 12/28/2019 022 Overview: With HF and CKD on PL Acute renal failure due to contrast agent 12/28/2019 12/11/2021 Heart failure, systolic, wit h acute decompensation 12/28/2019 12/30/2019 NSTEMI (non-ST elevated myoc ardial infarction) 12/28/2019 12/28/2019 CKD (chronic kidney disease) stage 4, GFR 15-29 ml/min 12/24/2019 03/20/2020 ASCVD (arteriosclerotic card iovascular disease) 04/30/2019 12/11/2021 Overview: W/ angina on PL Morbid obesity 02/19/2019 03/15/2019 History of colon polyps 02/12/201908/02 Overview: Historical. History of kidney stones 02/12/2019 Overview: Historical. Hypertensive kidney disease with chronic kidney disease stage III 02/12/2019 08/21/2019 Overview: Duplicate. Body mass index (BMI) of 40. 0 to 44.9 in adult 03/13/2018 08/21/2019 Overview: Per Obesity protocol #1 - Duplicate. Diabetic foot ulcer 03/06/2018 06/04/19 20 Body mass index (BMI) of 45. 0 to 49.9 in adult 01/03/2017 03/17/2018 Overview: Per Obesity protocol #1 Kidney disease, chronic, sta ge III (GFR 30-59 ml/min) 12/20/2016 07/15/2017 DM type 2 with diabetic chronic skin ulcer 10/27/2016 12/20/2016 Renal calculus 06/02/2016 02/12/2019 Bunion of unspecified foot 04/08/2016 0 08/21/2019 Overview: Acute. Kidney disease, chronic, sta ge III (GFR 30-59 ml/min) 08/19/2014 10/27/2016 Overview: Per CKD protocol #1 Diabetic polyneuropathy asso ciated with type 2 diabetes mellitus 01/07/2012 08/21/2019 Overview: Duplicate. HTN, goal below 140/80 11/22/201111/26 Overview: Per HTN Protocol #27. Body mass index (BMI) of 40.0-44.9 in adult 05/20/2010 01/06/2017 Overview: Per Obesity protocol #1 Obesity, morbid (more than 1 00 lbs over ideal weight or BMI > 40) 07/01/2009 01/17/2020 Overview: Per Obesity Taxonomy ICD-10 update of inactive term HTN, GOAL BELOW 130/80 05/01/200911/24 Overview: Per HTN Taxonomy. Other psoriasis and similar disorders 02/20/2009 10/27/2016 Type 2 diabetes mellitus wit h hemoglobin A1c goal of less than 7.0% 01/16/2009 11/02/2012 Overview: Modified per Diabetes protocol #14. ICD-10 update of inactive term Stress reaction, emotional 12/12/2008 0 10/27/2016 Benign neoplasm of colon 09/20/200802/2019 Overview: adenomatous polyps, f/u in 3 yrs DM type 2, not at goal 08/29/200801/16 Overview: Modified per Diabetes protocol #14. HTN, goal below 140/90 08/29/200805/01 Overview: Per HTN Taxonomy. Mixed dyslipidemia 08/29/2008 9 Overview: Per Lipid Taxonomy. Obesity, BMI not known 08/29/200807/01 Overview: Per Obesity Taxonomy Other atopic dermatitis 08/29/200810/03 Overview: ICD-10 update of inactive term Other allergic rhinitis 08/29/200810/03 Overview: ICD-10 update of inactive term documented as of this encounter (statuses as of 02/09/2024) Immunizations Name Administration Dates Next Due COVID-19 mRNA, LNP-s, No Pre serve, 2-Dose Series (Moderna) 02/16/2021,06/10/2020,05/13/2020 COVID-19, MRNA-LNP, PF, 30 M CG/0.3 mL, 12 YRS AND ABOVE, IM ([employer]) 02/09/2024,02/09/2023 Covid-19, Mrna, Lnp-s, Pf, B ivalent, [...] Recorded Sex Assigned at Not on file Gender Identity Not on file Sexual Orientation Lesbian 12/17/2021 11 :40 AM EDT Sexual Orientation Anderson 12/17/2021 11 :40 AM EDT Job Start Date Occupation Industry Not on file Not on file Not on file documented as of this encounter Functional Status Functional Status Response Date of Assess ment Are you deaf or do you have serious difficulty hearing? Yes-tennitis in both ears. 12/25/2019 Are you blind or do you have serious difficulty seeing, even when wearing glasses? No 12/25/2019 Do you have serious difficul ty walking or climbing stairs? (5 years old or older) Yes-pt recently SOB on stairs, nor walking up stairs- for dizziness. 12/25/2019 Do you have difficulty dress ing or bathing? (5 years old or older) No 12/25/2019 Because of a physical, menta l, or emotional condition, do you have difficulty doing errands alone such as visiting a doctor s office or shopping? (15 years old or older) Yes-pt shops with electric scooter, 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 (5 years old or older) No 12/25/2019 documented as of this encounter Miscellaneous Notes * Telephone Encounter - Aimee Leonard OSA - 02/09/2024 10:46 AM EST 2nd attempt went straight to a voicemail that states he does not believe in voicemail and not to leave a message. * Telephone Encounter - Aimee Leonard OSA - 02/07/2024 9:02 AM EST Spoke with patient and offered several appointments in [facility] with Dr. Clifford and patient states he is driving and wants a call back tomorrow. * Telephone Encounter - Ирина Ramsey OSA - 11/29/2023 2:50 PM EDT Called patient to cancel/reschedule appointment on 02/02. Pt did not wish to reschedule at this timeand wants called back in February. Needs to be reschedule/established with Venessa if pt doesn't want to travel to [place] to see Elio. documented in this encounter Plan of Treatment Upcoming Encounters Date Type Department Care Team (Late st Contact Info) Description 04/19/2024 8:45 AM EST Office Visit Orthopaedics [facility] [address] [place] [address] David Ahmadi PA-C [address] [place] [address] Health Maintenance Due Date Last Done Comments [...] this encounter Medical Devices Implanted Type Area Finisher Cold Rolling Device Identifier Shelf Expiration Date Model / Serial / Lot Lens 19.0 Mx60 - [id number] - [id number] Implanted:Qty: 1 on 11/02/2016 by Rob Padron MD at [facility] Right: Eye [employer] : SURGICAL 04/03/2019 MX60-19.0 / [id number] / [id number] documented as of this encounter Advance Directives [...] the patient have Health Care Power of Janitor Caretaker? Yes, not currently available * Full Code Date Activated Date Inactivated Comments 11/02/2016 12:13 PM 11/02/2016 6:23 PM This order re flects the patients wishes and were consensually agreed upon. Healthcare Agents on File Name Relationship Healthcare Agent Relationshi p Communication Digna Grover Adult Child Health Care Power of Attorne y Care Teams Associate Merchant Relationship Specialty Start Date End Date Itz Niño DO [address] [place] [address] PCP - General Family Medicine 03/15/22 documented as of this encounter
--- OUTSIDE RECORDS SUMMARY | 2024-06-25 20:46 | External Medical Summary | Summary of Care ---
Author Name Unknown Organization [facility] Address [address] [place] [address] Phone [phone] Care Team Providers Care Fabric Coating Supervisor Name Role Phone Itz Niño DO Primary Care Provider Reason for Visit * Reason Onset Date Comments [facility]: Engagement 01/30/2024 Encounter Details Date Type Department Care Team (Late st Contact Info) Description 01/30/2024 Telephone [facility] [place] [address] [place] [address] Yelitza Alivia, THALIA [address] [place], [place] [id number] [facility]: Engagement Allergies Active Allergy Reactions Criticality Noted Date Comments Lisinopril Cough High 12/25/2019 Severe dry cough Losartan Diarrhea Medium 12/25/2019 documented as of this encounter (statuses as of 01/30/2024) Medications Medication Sig Dispensed Refills Start Date [...] BY MOUTH DAILY 90 Tablet 3 04/12/2023 5 Active NovoLIN R 100 UNIT/ML Injection Solution (insulin REGULAR human) INJECT UP TO 200 UNITS DAILY VIA INSULIN PUMP 200 mL 3 04/14/2023 Active Insulin Syringe-Needle U-100 30G X 1/2" 0.5 MLIndications:Type 2 diabetes mellitus with hemoglobin A1c goal of less than 7.0% ([facility]) Use as directed with insulin [...] 11/16/2023 Active Gabapentin 300 MG Oral Capsule (Neurontin)Indicatio ns:Diabetic peripheral neuropathy (HCC) TAKE ONE CAPSULE BY MOUTH AT BEDTIME 90 Capsule 3 11/30/2023 Active oxyCODONE HCl 5 MG Oral Tablet (Oxy IR)Indications:Cubit al tunnel syndrome on right,Diabetic mononeuropathy associated with diabetes mellitus due to underlying condition ([facility]) Take 2 Tablets by mouth at bedtime as needed for Pain, Severe. 60 Tablet 01/17/2024 Active documented as of this encounter (statuses as of 01/30/2024) Active Problems Problem Noted Date Diagnosed Date Acute hyperkalemia 01/30/2024 Acute hypoxemic respiratory failure 01/30/2024 Acute non-ST segment elevation myocardial infarc tion 01/30/2024 Anemia 01/30/2024 Bifascicular bundle branch block 01/30/2024 Chronic acquired lymphedema 01/30/2024 Hypoxia 01/30/2024 Neuropathy 01/30/2024 Peripheral edema 01/30/2024 Sepsis 01/30/2024 Venous stasis ulcer of left lower extremity 01/03 Hbwvq-ne-rlxnitm renal failure 01/30/2024 Vitreous hemorrhage, right 03/25/2022 [...] type 2 diabetes mellitus 01/20/2021 History of PR (myocardial infarction) 08/22/2020 Major depressive disorder, recurrent, mild 02/13 Cubital tunnel syndrome, right 02/14/2020 Unspecified inflammatory spondylopathy, cervical region 01/31/2020 Type 2 diabetes mellitus wit h hyperglycemia, with long-term current use of insulin 01/09/2020 Coronary artery disease invo lving [place] coronary artery of [place] heart with angina pectoris 12/28/2019 Controlled substance [...] as of this encounter (statuses as of 01/30/2024) Resolved Problems Problem Noted Date Diagnosed Date [...] Overview: Per HTN Taxonomy. Mixed dyslipidemia 08/29/2008 12/17/200 9 Overview: Per Lipid Taxonomy. Obesity, BMI not known 08/29/200807/01 Overview: Per Obesity Taxonomy Other atopic dermatitis 08/29/200810/03 Overview: ICD-10 update of inactive term Other allergic rhinitis 08/29/200810/03 Overview: ICD-10 update of inactive term documented as of this encounter (statuses as of 01/30/2024) Immunizations Name Administration Dates Next Due COVID-19 mRNA, LNP-s, No Pre serve, 2-Dose Series (Moderna) 02/16/2021,06/10/2020,05/13/2020 COVID-19, MRNA-LNP, 23-24, P F, 30 MCG/0.3 mL, 12 YRS AND ABOVE, IM ([facility] 02/09/2023 Covid-19, Mrna, Lnp-s, Pf, B ivalent, 30 [...] IM, 0.5 mL (Fluzone) 01/24/2012 Seasonal Influenza, Quadriva lent Hd (Fluzone Hd) [...] encounter Miscellaneous Notes * Telephone Encounter - Alivia Torre OSA - 01/30/2024 3:09 PM EDT Outreach to patient for [facility] scheduling. Patient declined appointment scheduling at this time documented in this encounter Plan of Treatment Upcoming Encounters Date Type Department Care Team (Late st Contact Info) Description 04/19/2024 8:45 AM EST Office Visit Orthopaedics [facility] [address] [place] [address] David Ahmadi PA-C [address] [place] [address] Health Maintenance Due Date Last Done Comments Fecal Occult Blood Test 09/25/1995 Sigmoidoscopy 09/25/1995 DTap/Tdap Vaccines (1 - Tdap) 02/03/2007 02/02/2007 Colonoscopy 09/21/2011 09/20/2008 Adult Wellness Visit 2016 Colorectal Cancer Screening 05/02/2021 Depression Monitoring 12/17/2022 12/17/2021 Diabetic Eye Exam 04/21/2023 04/21/2022, , 03/12/2020, Additional history exists COVID-19 Vaccine ( season) 2023 02/09/2023, 01/05/2022, 02/16/2021, Additional history exists Influenza Vaccine (FLU shot) (#1) 2023 01/18/2023, 12/17/2021, 01/20/2021, Additional history exists HbA1c 03/16/2024 09/15/2023, 04/04, 09/17/2021, Additional history exists Cologuard 05/01/2024 05/01/2021, 04/05, 04/23/2021, Additional history exists Diabetic Foot Exam 08/22/2024 08/23/2023, 0 06/02/2016, 01/16/2014, Additional history exists Hepatitis B Vaccine Completed 09/06/2006, 03/08/2006, 03/08/2006, Additional history exists Pneumococcal Vaccine: 65+ Years Completed 11/23/2019, 03/06/2018, 01/24/2012 Zoster Vaccines Completed 02/14/2020, 11/03, 04/15/2015 Albumin/Creatinine Ratio Discontinued 022, 10/10/2019, 04/24/2015, Additional history exists HPV (Gardasil) Vaccine Aged Out No lo nger eligible based on patient's age to complete this topic MENINGOCOCCAL (MENACTRA/MENVEO) Aged Out No longer eligible based on patient's age to complete this topic documented as of this encounter Medical Devices Implanted Type Area Product Representative Device Identifier Shelf Expiration Date Model / Serial / Lot Lens 19.0 Mx60 - [id number] - [id number] Implanted:Qty: 1 on 11/02/2016 by Rob Padron MD at [facility] Right: Eye [employer] : SURGICAL 04/03/2019 MX60-19.0 / [id number] / [id number] documented as of this encounter Advance Directives [...] the patient have Health Care Power of Command And Control? Yes, not currently available * Full Code Date Activated Date Inactivated Comments 11/02/2016 12:13 PM 11/02/2016 6:23 PM This order re flects the patients wishes and were consensually agreed upon. Healthcare Agents on File Name Relationship [facility] Digna Moon Adult Child Health Care Power of Attorne y Care Teams Fabric Coating Supervisor Relationship Specialty Start Date End Date Itz Niño DO [address] [place] [address] PCP - General Family Medicine 03/15/22 documented as of this encounter
--- OUTSIDE RECORDS SUMMARY | 2024-06-25 20:46 | External Medical Summary | Summary of Care ---
Author Name Unknown Organization [facility] Address [address] [place] [address] Phone [phone] Care Team Providers Care Supervisor Print Line Name Role Phone Itz Niño DO Primary Care Provider Encounter Details Date Type Department Care Team (Late st Contact Info) Description 01/25/2024 Population Health External Data Unspecified Department Allergies Active Allergy Reactions Criticality Noted Date Comments Lisinopril Cough High 12/25/2019 Severe dry cough Losartan Diarrhea Medium 12/25/2019 documented as of this encounter (statuses as of 01/25/2024) Medications Medication Sig Dispensed Refills Start Date [...] VIA INSULIN PUMP 200 mL 3 04/14/2023 5 Active Insulin Syringe-Needle U-100 30G X 1/2" 0.5 MLIndications:Type 2 diabetes mellitus with hemoglobin A1c goal of less than 7.0% ([facility]) Use as directed with insulin [...] as of this encounter (statuses as of 01/25/2024) Active Problems Problem Noted Date Diagnosed Date Vitreous hemorrhage, right 03/25/2022 Ischemic cardiomyopathy 03/25/2022 [...] insulin 01/09/2020 Coronary artery disease invo lving [place] coronary artery of [place] heart with angina pectoris 12/28/2019 Controlled substance [...] as of this encounter (statuses as of 01/25/2024) Resolved Problems Problem Noted Date Diagnosed Date [...] Overview: Per HTN Taxonomy. Mixed dyslipidemia 08/29/2008 Overview: Per Lipid Taxonomy. Obesity, BMI not known 08/29/200807/01 Overview: Per Obesity Taxonomy Other atopic dermatitis 08/29/200810/03 Overview: ICD-10 update of inactive term Other allergic rhinitis 08/29/200810/03 Overview: ICD-10 update of inactive term documented as of this encounter (statuses as of 01/25/2024) Immunizations Name Administration Dates Next Due COVID-19 mRNA, LNP-s, No Pre serve, 2-Dose Series (Moderna) 02/16/2021,06/10/2020,05/13/2020 COVID-19, MRNA-LNP, 23-24, P F, 30 MCG/0.3 mL, 12 YRS AND ABOVE, IM ([employer]) 02/09/2023 Covid-19, Mrna, Lnp-s, Pf, B ivalent, [...] No 12/25/2019 documented as of this encounter Plan of Treatment Upcoming Encounters Date Type Department Care Team (Late st Contact Info) Description 04/19/2024 8:45 AM EST Office Visit Orthopaedics [facility] [address] [place] [address] David Ahmadi PA-C [address] [place] [address] Health Maintenance Due Date Last Done Comments [...] this encounter Medical Devices Implanted Type Area Supervisor Metal Furniture Assembly Device Identifier Shelf Expiration Date Model / Serial / Lot Lens 19.0 Mx60 - [id number] - [id number] Implanted:Qty: 1 on 11/02/2016 by Rob Padron MD at [facility] Right: Eye [employer] : SURGICAL 04/03/2019 MX60-19.0 / [id number] / [id number] documented as of this encounter Advance Directives [...] the patient have Health Care Power of Workforce Consultant? Yes, not currently available * Full Code Date Activated Date Inactivated Comments 11/02/2016 12:13 PM 11/02/2016 6:23 PM This order re flects the patients wishes and were consensually agreed upon. Healthcare Agents on File Name Relationship Healthcare Agent [facility] p Communication Digna Grover Adult Child Health Care Power of Attorne y Care Teams Supervisor Print Line Relationship Specialty Start Date End Date Itz Niño DO [address] [address] PCP - General Family Medicine 03/15/22 documented as of this encounter
--- OUTSIDE RECORDS SUMMARY | 2024-06-25 20:46 | External Medical Summary | Summary of Care ---
Author Name Unknown Organization [facility] Address [address] [place] [address] Phone [phone] Care Team Providers Care Specialty Plant Supervisor Name Role Phone Itz Niño DO Primary Care Provider Reason for Visit * Reason Onset Date Comments Appointment Canceled 11/29/2023 Encounter Details Date Type Department Care Team (Late st Contact Info) Description 11/29/2023 Telephone Ophthalmology, [facility] [address] [place] [address] Jignesh Ballard MD [address] [facility] [address] [place] [address] Appointment Canceled Allergies Active Allergy Reactions Criticality Noted Date Comments Lisinopril Cough High 12/25/2019 Severe dry cough Losartan Diarrhea Medium 12/25/2019 documented as of this encounter (statuses as of 02/07/2024) Medications Medication Sig Dispensed Refills Start Date [...] as of this encounter (statuses as of 02/07/2024) Active Problems Problem Noted Date Diagnosed Date Acute hyperkalemia 01/30/2024 Acute hypoxemic respiratory failure 01/30/2024 Acute non-ST segment elevation myocardial infarc tion 01/30/2024 Anemia 01/30/2024 Bifascicular bundle branch block 01/30/2024 Chronic acquired lymphedema 01/30/2024 Hypoxia 01/30/2024 Neuropathy 01/30/2024 Peripheral edema 01/30/2024 Sepsis 01/30/2024 Venous stasis ulcer of left lower extremity 01/03 Iljwz-xm-jpainbr renal failure 01/30/2024 Vitreous hemorrhage, right 03/25/2022 [...] as of this encounter (statuses as of 02/07/2024) Resolved Problems Problem Noted Date Diagnosed Date [...] update of inactive term Other allergic rhinitis 08/29/2008/09/2016 Overview: ICD-10 update of inactive term documented as of this encounter (statuses as of 02/07/2024) Immunizations Name Administration Dates Next Due COVID-19 mRNA, LNP-s, No Pre serve, 2-Dose Series (Moderna) 02/16/2021,06/10/2020,05/13/2020 COVID-19, MRNA-LNP, PF, 30 M CG/0.3 mL, 12 YRS AND ABOVE, IM (Scour Prevention-ComirMinekey) 02/09/2023 Covid-19, Mrna, Lnp-s, Pf, B ivalent, [...] years old or older) 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 (5 years old or older) No 12/25/2019 documented as of this encounter Miscellaneous Notes * Telephone Encounter - Aimee Leonard, THALIA - 02/07/2024 9:02 AM EST Spoke with patient and offered several appointments in [facility] with Dr. Clifford and patient states he is driving and wants a call back tomorrow. * Telephone Encounter - Ирина Ramsey OSA - 11/29/2023 2:50 PM EDT Called patient to cancel/reschedule appointment on 02/02. Pt did not wish to reschedule at this timeand wants called back in February. Needs to be reschedule/established with Douglasna if pt doesn't want to travel to [place] to see Janesjovon. documented in this encounter Plan of Treatment Upcoming Encounters Date Type Department Care Team (Late st Contact Info) Description 02/09/2024 9:45 AM EST Immunization [facility] [address] [place] [address] [facility] [address] [place] [address] 04/19/2024 8:45 AM EST Office Visit Orthopaedics [facility] [address] [place] [address] David Ahmadi PA-C [address] [place] [address] Health Maintenance Due Date Last Done Comments [...] this encounter Medical Devices Implanted Type Area Tutorial Laboratory Supervisor Device Identifier Shelf Expiration Date Model / Serial / Lot Lens 19.0 Mx60 - [id number] - [id number] Implanted:Qty: 1 on 11/02/2016 by Rob Padron MD at OR [facility] Right: Eye [employer]USCH [employer] LOMB : SURGICAL 04/03/2019 MX60-19.0 / [id number] / [id number] documented as of this encounter Advance Directives [...] the patient have Health Care Power of Air Tester? Yes, not currently available * Full Code Date Activated Date Inactivated Comments 11/02/2016 12:13 PM 11/02/2016 6:23 PM This order re flects the patients wishes and were consensually agreed upon. Healthcare Agents on File Name Relationship Healthcare Agent Relationshi p Communication Digna Grover Adult Child Health Care Power of Attorne y Care Teams Specialty Plant Supervisor Relationship Specialty Start Date End Date Itz Niño DO [address] [place] [address] PCP - General Family Medicine 03/15/22 documented as of this encounter
--- OUTSIDE RECORDS SUMMARY | 2024-06-25 20:46 | External Medical Summary | Summary of Care ---
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) Use as directed with insulin up to 5 times a day. E11.9 100 Each 3 06/06/2023 Active Metoprolol Succinate ER 25 MG Oral Tablet Extended Release 24 Hour (toPROL XL)Indications:HTN, goal below 130/80 Take 1 Tablet by mouth in the morning. 90 Tablet 3 08/23/2023 Active Semaglutide 7 MG Oral Tablet (Rybelsus) TAKE ONE TABLET BY MOUTH FIRST THING IN THE MORNING AFTER 30 DAYS OF RYBELSUS 3MG 90 Tablet 3 08/23/2023 Active Clopidogrel Bisulfate 75 MG Oral Tablet (pLAVix) Take 1 Tablet by mouth in the morning. 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 60 Tablet 12/14/2023 01/16/20 24 Discontinu ed(Refill) documented as of this encounter (statuses as of 01/17/2024) Active Problems Problem Noted Date Diagnosed Date [...] insulin 01/09/2020 Coronary artery disease invo lving [place] coronary artery of [place] heart with angina pectoris 12/28/2019 Controlled substance [...] as of this encounter (statuses as of 01/17/2024) Resolved Problems Problem Noted Date Diagnosed Date [...] as of this encounter (statuses as of 01/17/2024) Immunizations Name Administration Dates Next Due COVID-19 mRNA, LNP-s, No Pre serve, 2-Dose Series (Moderna) 02/16/2021,06/10/2020,05/13/2020 COVID-19, MRNA-LNP, 23-24, P F, 30 MCG/0.3 mL, 12 YRS AND ABOVE, IM (Integration Management-ComirnatSpinelab) 02/09/2023 Covid-19, Mrna, Lnp-s, Pf, B ivalent, [...] old or older) 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 (5 years old or older) No 12/25/2019 documented as of this encounter Miscellaneous Notes * Telephone Encounter - Isabell Niño DO - 01/17/2024 1:43 PM EDT Signed Prescriptions: Disp Refills oxyCODONE HCl 5 MG Oral Tablet (Oxy IR) 60 Tab*0 Sig: Take 2 Tablets by mouth at bedtime as needed for Pain, Severe. Authorizing Provider: ISABELL NIÑO * Telephone Encounter - Alex Ureña, [facility] - 01/17/2024 1:17 PM EDT Pending Prescriptions: Disp Refills oxyCODONE HCl 5 MG Oral Tablet (Oxy IR) 60 Tab*0 Sig: Take 2 Tablets by mouth at bedtime as needed for Pain, Severe. * Telephone Encounter - Alex Ureña, [facility] - 01/17/2024 1:17 PM EDT I have reviewed the patients controlled substance dispensing history in the Prescription Drug Monitoring Program in compliance with the [facility] regulations before prescribing a controlled substance. PDMP checked on 01/17/2024. Pending Prescriptions: Disp Refills oxyCODONE HCl 5 MG Oral Tablet (Oxy IR) 60 Tab*0 Sig: Take 2 Tablets by mouth at bedtime as needed for Pain, Severe. Last Visit: 08/23/2023 (in office), Visit date not found (telemedicine) Next Visit: Visit date not found Date medication was last filled: 12/14/23 Date medication is due for refill: 01/12/24 Pharmacy: [facility] Is this request for a controlled substance? Yes and Urine Drug Screen Not completed Toxicology [...] in Results Review. Please approve if appropriate. Thanks, Alex Ureña, PharmD Clinical Pharmacist [facility] ([facility]) [phone] 01/17/2024, 1:17 PM documented in this encounter Plan of Treatment Upcoming Encounters Date Type Department Care Team (Late st Contact Info) Description 04/19/2024 8:45 AM EST Office Visit Orthopaedics [facility] [address] [facility] [place] [address] David Amhadi PA-C [address] [place] [address] Health Maintenance Due Date Last Done Comments [...] this encounter Medical Devices Implanted Type Area Tube Making Machine Operator Device Identifier Shelf Expiration Date Model / Serial / Lot Lens 19.0 Mx60 - [id number] - [id number] Implanted:Qty: 1 on 11/02/2016 by Rob Padron MD at [facility] Right: Eye [employer]USCH [employer] LOMB : SURGICAL 04/03/2019 MX60-19.0 / [id number] / [id number] documented as of this encounter Visit Diagnoses [...] the patient have Health Care Power of Tenant Coordinator? Yes, not currently available * Full Code Date Activated Date Inactivated Comments 11/02/2016 12:13 PM 11/02/2016 6:23 PM This order re flects the patients wishes and were consensually agreed upon. Healthcare Agents on File Name Relationship Healthcare Agent Relationshi p Communication Digna Sandovalon Adult Child Health Care Power of Attorne y Care Teams Planting Machine Crewman Relationship Specialty Start Date End Date Isabell Niño DO [address] [place] [address] PCP - General Family Medicine 03/15/22 documented as of this encounter
--- OUTSIDE RECORDS SUMMARY | 2024-06-25 20:46 | External Medical Summary | Summary of Care ---
Author Name Unknown Organization [facility] Address [address] [place] [address] Phone [phone] Care Team Providers Care Weather Anchor Name Role Phone Itz Niño DO Primary Care Provider Reason for Visit * Reason Onset Date Comments [facility]: Screening 01/30/2024 Encounter Details Date Type Department Care Team (Late st Contact Info) Description 01/30/2024 Telephone [facility], [facility] [address] [facility] [place] [address] Brianna Viveros, EMPLOYMENT TRAINING SPECIALIST [address] [place] [address] [facility]: Screening Allergies Active Allergy [...] diabetes mellitus due to underlying condition ([facility]) Take 2 Tablets by mouth at [...] stasis ulcer of left lower extremity 01/03 Pmfof-xq-xhhublb renal failure 01/30/2024 Vitreous hemorrhage, right 03/25/2022 [...] type 2 diabetes mellitus 01/20/2021 History of [place] (myocardial infarction) 08/22/2020 Major depressive disorder, recurrent, mild 02/13 Cubital tunnel syndrome, right 02/14/2020 Unspecified inflammatory spondylopathy, cervical region 01/31/2020 Type 2 diabetes mellitus wit h hyperglycemia, with long-term current use of insulin 01/09/2020 Coronary artery disease invo lving [place] coronary artery of [place] heart with angina pectoris 12/28/2019 Controlled substance [...] 01/09/2020 01/04/2022 Overview: With HF on PL [address] (acute kidney injury) 12/28/2019 Cardiorenal syndrome 12/28/2019 [...] MCG/0.3 mL, 12 YRS AND ABOVE, IM ([facility]) 02/09/2023 Covid-19, Mrna, Lnp-s, Pf, B [...] encounter Miscellaneous Notes * Telephone Encounter - Brianna Viveros LPN - 01/30/2024 11:35 AM EDT Jignesh Grover III was referred as a potential candidate for enrollment for [facility]. A review of this chart was completed and: Jignesh meets criteria for [facility]. Jump to Initiation Referring care team was notified via : Epic communication documented in this encounter Plan of Treatment Upcoming Encounters Date Type Department Care Team (Late st Contact Info) Description 04/19/2024 8:45 AM EST Office Visit Orthopaedics [facility] [address] [place] [address] David Ahmadi PA-C [address] [place] [address] Health Maintenance Due Date Last Done Comments [...] this encounter Medical Devices Implanted Type Area Forensic Structural Engineer Device Identifier Shelf Expiration Date Model / Serial / Lot Lens 19.0 Mx60 - [id number] - [id number] Implanted:Qty: 1 on 11/02/2016 by Rob Padron MD at OR [facility] Right: Eye BAUSCH [employer] LOMB : SURGICAL 04/03/2019 MX60-19.0 / [id number] / [id number] documented as of this encounter Advance Directives [...] the patient have Health Care Power of Butadiene Converter Utility Operator? Yes, not currently available * Full Code Date Activated Date Inactivated Comments 11/02/2016 12:13 PM 11/02/2016 6:23 PM This order re flects the patients wishes and were consensually agreed upon. Healthcare Agents on File Name Relationship [facility] Digna Grover Adult Child Health Care Power of Attorne y Care Teams Weather Anchor Relationship Specialty Start Date End Date Itz Niño DO [address] [place] [address] PCP - General Family Medicine 03/15/22 documented as of this encounter
--- OUTSIDE RECORDS SUMMARY | 2024-06-25 20:47 | External Medical Summary | Summary of Care ---
Author Name Unknown Organization [facility] Address [address] [place] [address] Phone [phone] Care Team Providers Care Properties Supervisor Name Role Phone Itz Niño DO Primary Care Provider Reason for Visit * Reason Onset Date Comments Appointment Canceled 11/29/2023 Encounter Details Date Type Department Care Team (Late st Contact Info) Description 11/29/2023 Telephone Ophthalmology, [facility] [address] [place] [address] Jignesh Ballard MD [address] [facility] [address] [place] [address] Appointment Canceled Allergies Active Allergy Reactions Criticality Noted Date Comments Lisinopril Cough High 12/25/2019 Severe dry cough Losartan Diarrhea Medium 12/25/2019 documented as of this encounter (statuses as of 01/11/2024) Medications Medication Sig Dispensed Refills Start Date [...] hemoglobin A1c goal of less than 7.0% ([facility]) Use as directed with insulin [...] Capsule 3 09/14/2022 11/28/19 24 Discontinu ed(Refill) oxyCODONE HCl 5 MG Oral Tablet (Oxy IR)Indications:Cubi gil tunnel syndrome on right,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 60 Tablet 10/12/2023 12/10/19 24 Discontinu ed(Refill) documented as of this encounter (statuses as of 01/11/2024) Active Problems Problem Noted Date Diagnosed Date [...] type 2 diabetes mellitus 01/20/2021 History of [place] (myocardial infarction) 08/22/2020 Major depressive disorder, recurrent, mild 02/13 Cubital tunnel syndrome, right 02/14/2020 Unspecified inflammatory spondylopathy, cervical region 01/31/2020 Type 2 diabetes mellitus wit h hyperglycemia, with long-term current use of insulin 01/09/2020 Coronary artery disease invo lving [place] coronary artery of [place] heart with angina pectoris 12/28/2019 Controlled substance [...] as of this encounter (statuses as of 01/11/2024) Resolved Problems Problem Noted Date Diagnosed Date [...] as of this encounter (statuses as of 01/11/2024) Immunizations Name Administration Dates Next Due COVID-19 [...] (Prevnar) 03/06/2018 Pneumococcal Polysaccharide PPV23 (Pneumovax) 11/23/2019,01/24/2012 Season Influenza, Quad, PF, Adjuvanted, 65+ Yrs, [...] encounter Miscellaneous Notes * Telephone Encounter - Ирина Ramsey OSA - 11/29/2023 2:50 PM EDT Called patient to cancel/reschedule appointment on 02/02. Pt did not wish to reschedule at this timeand wants called back in February. Needs to be reschedule/established with Venessa if pt doesn't want to travel to [place] to see Elio. documented in this encounter Plan of Treatment Upcoming Encounters Date Type Department Care Team (Late st Contact Info) Description 04/19/2024 8:45 AM EST Office Visit Orthopaedics [facility] [address] [place] [address] David Ahmadi PA-C [address] [place] [address] Health Maintenance Due Date Last Done Comments [...] this encounter Medical Devices Implanted Type Area Thermodynamic Physicist Device Identifier Shelf Expiration Date Model / Serial / Lot Lens 19.0 Mx60 - [id number] - [id number] Implanted:Qty: 1 on 11/02/2016 by Rob Padron MD at OR [facility] Right: Eye BAUSCH [employer] LOMB : SURGICAL 04/03/2019 MX60-19.0 / [id number] / [id number] documented as of this encounter Advance Directives [...] the patient have Health Care Power of Stock Layer? Yes, not currently available * Full Code Date Activated Date Inactivated Comments 11/02/2016 12:13 PM 11/02/2016 6:23 PM This order re flects the patients wishes and were consensually agreed upon. Healthcare Agents on File Name Relationship Healthcare Agent [facility] Communication Digna Grover Adult Child Health Care Power of Attorne y Care Teams Properties Supervisor Relationship Specialty Start Date End Date Itz Niño DO [address] [place] [address] PCP - General Family Medicine 03/15/22 documented as of this encounter
--- OUTSIDE RECORDS SUMMARY | 2024-06-25 20:47 | External Medical Summary | Summary of Care ---
Author Name Unknown Organization [facility] Address [address] [place] [address] Phone [phone] Care Team Providers Care Armament Mechanic Name Role Phone Itz Niño DO Primary Care Provider Reason for Visit * Reason Onset Date Comments transfer of records 01/17/2024 Encounter Details Date Type Department Care Team (Late st Contact Info) Description 01/17/2024 Telephone Family Practice [facility] [address] [place] [address] Itz Niño DO [address] [place] [address] transfer of records Allergies Active Allergy Reactions Criticality Noted Date [...] BY MOUTH DAILY 90 Tablet 3 04/12/2023 Active NovoLIN R 100 UNIT/ML Injection Solution [...] needed for Pain, Severe. 60 Tablet 12/14/2023 Active documented as of this encounter (statuses [...] insulin 01/09/2020 Coronary artery disease invo lving [place] coronary artery of [place] heart with angina pectoris 12/28/2019 Controlled substance [...] encounter Miscellaneous Notes * Telephone Encounter - Suki Peñaloza OSA - 01/17/2024 11:58 AM EDT Pt would like records sent to Home care Delivered for continued of care Thank you Forward to [facility] documented in this encounter Plan of Treatment Upcoming Encounters Date Type Department Care Team (Late st Contact Info) Description 04/19/2024 8:45 AM EST Office Visit Orthopaedics [facility] [address] [place] [address] David Ahmadi PA-C [address] [place] [address] Health Maintenance Due Date Last Done Comments [...] this encounter Medical Devices Implanted Type Area Center Line Cutter Operator Device Identifier Shelf Expiration Date Model / Serial / Lot Lens 19.0 Mx60 - [id number] - [id number] Implanted:Qty: 1 on 11/02/2016 by Rob Padron MD at [facility] Right: Eye BAUSCH [employer] LOMB : SURGICAL 04/03/2019 MX60-19.0 / [id number] / [id number] documented as of this encounter Advance Directives [...] the patient have Health Care Power of Mental Health Advanced Practice Nurse? Yes, not currently available * Full Code Date Activated Date Inactivated Comments 11/02/2016 12:13 PM 11/02/2016 6:23 PM This order re flects the patients wishes and were consensually agreed upon. Healthcare Agents on File Name Relationship Healthcare Agent [facility] Communication Digna Grover Adult Child Health Care Power of Attorne y Care Teams Armament Mechanic Relationship Specialty Start Date End Date Itz Niño DO [address] [place] [address] PCP - General Family Medicine 03/15/22 documented as of this encounter
[2024-06-25] MEDS: HEPARIN SOD 5,000 UNIT/0.5 ML VIAL SQ SCH (21:55)
[2024-06-25] MEDS: LANTUS PER UNIT CHARGE SQ SCH (21:56)
[2024-06-25] MEDS: ALBUMIN 25% 25 GM/100 ML VIAL IV ONE (21:57)
[2024-06-25] MEDS: CALCIUM ACETATE 667 MG CAP/TAB PO SCH (21:57)
[2024-06-25] MEDS: oxyCODONE HCL IR 5 MG TAB (IMMEDIATE RELEASE) PO PRN (23:30)
[2024-06-25] MEDS: GABAPENTIN 300 MG CAP PO PRN (23:30)
[2024-06-26] MEDS: oxyCODONE HCL IR 5 MG TAB (IMMEDIATE RELEASE) PO STA (04:46)
[2024-06-26] MEDS: oxyCODONE HCL IR 5 MG TAB (IMMEDIATE RELEASE) PO PRN (09:39)
[2024-06-26 10:09] LABS: Basophils # (auto) 0.04 K/uL (0.00-0.20); Basophils % (auto) 0.5 %; Eosinophils # (auto) 0.57 K/uL (0.00-0.50); Eosinophils % (auto) 7.4 %; Hematocrit (blood only) 33.4 % (42.0-52.0); Hemoglobin 11.4 g/dl (14.0-18.0); Immature Granulocytes # (auto) 0.03 K/uL (0.01-0.20); Immature Granulocytes % (auto) 0.4 %; Lymphocytes # (auto) 1.86 K/uL (1.20-3.40); Mean Corpuscular Hemoglobin 32.9 pg (25.0-34.0); Mean Corpuscular Hgb Conc 34.1 g/dL (32.0-36.0); Mean Corpuscular Volume 96.3 fL (80.0-100.0); Mean Platelet Volume 10.7 fL (9.4-12.4); Monocytes # (auto) 0.77 K/uL (0.11-0.59); Monocytes % (auto) 9.9 %; Neutrophils # (auto) 4.47 K/uL (1.40-6.50); Neutrophils % (auto) 57.8 %; Platelet Count 140 K/uL (130-400); RDW Coefficient of Variation 14.2 % (11.5-14.5); RDW Standard Deviation 49.5 fL (36.4-46.3); Red Blood Count 3.47 M/uL (4.70-6.10); White Blood Count 7.74 K/ul (4.8-10.8)
[2024-06-26 10:27] LABS: Calcium 8.6 mg/dl (8.6-10.3); Potassium 6.3 mmol/L (3.5-5.1)
[2024-06-26 10:31] LABS: BUN Creatinine Ratio 5.5 (10-20); Phosphorus 7.4 mg/dl (2.5-4.9)
[2024-06-26] MEDS ORDERED: SODIUM CHLORIDE 0.9% 1,000 ML IV PRN (10:35)
[2024-06-26 10:40] LABS: Estimated Average Glucose 203 mg/dl; Hemoglobin A1C 8.7 % (4.5-5.6)
[2024-06-26] MEDS: ATORVASTATIN 40 MG TAB PO SCH (10:47)
[2024-06-26] MEDS: CLOPIDOGREL BISULFATE 75 MG TAB PO SCH (10:47)
[2024-06-26 11:06] LABS: Hep B Surface Ag with confirm Negative (Negative)
[2024-06-26 11:15] LABS: Hepatitis B Surface Ab Quant 4.13 mIU/mL (>or=10mIU/mL Immune); Hepatitis B Surface Antibody Non-Immune
--- NOTE | 2024-06-26 11:22 | Nephrology Consultation ---
Date of Consultation June 26, 2024 Assessment & Plan (1) Acute hyperkalemia: K came back at 6.3. I suggested him to have dialysis because of that and also frequent issues with Heart rhythm. He refused and said K was even higher last week. I said I did not agree with this and he will have to go home against medical advice. (2) ESRD (end stage renal disease) on dialysis: gets dialysis MWF--sent over for low BP and Bradycardia. Refusing dialysis and wants to go home now. (3) Hypotension: Still has low BP. ? etiology but does not look septic Plan total time spent 48 mins. I saw him twice. first before labs and then again after labs. despite my advice he wants to leave AMA and not do dialysis. History of Present Illness Reason for Consultation: ESRD on Dialysis Attending Physician: Kelley Robles MD History of Present Illness 73/M with ESRD on HD for last 2 years--has CVC. sent over from Dialysis because of Low BP and Low HR. gets HD --MWF at [facility] unit. His problems are insulin-requiring DM2, ESRD on HD, CAD s/p cardiac stent, HTN, prior CVA, hyperlipidemia, depression, CHF. Work-up in the ED included EKG showing frequent PVCs in a bigeminy pattern. is BPs in the hospital have been in the 80s-90s systolic but pt reports he is not having symptoms. He currently feels at his baseline. He wants to go home now. ROS--12 Systems reviwed and negative Physical Exam Physical Exam: General: awake, alert, NAD. Not in pleasant mood HEENT: Moiist oral mucosa Neck: supple,No JVD Heart: regular No murmur Lungs: CTA bilaterally Abdomen: soft, +BS. obese Extremities: chronic stasis changes bilateral LE Neurologic: Ox3, no confusion or dysarthria, moving all extremities, no focal deficits. Allergies Allergy/AdvReac Type Severity Reaction Status Date / Time losartan Allergy Diarrhea Unverified 06/25/24 14:33 lisinopril AdvReac Severe Cough Verified 06/25/24 14:33 Home Medications Medication Instructions Recorded Confirmed Type atorvastatin 80 mg tablet 80 mg PO QAM 06/17/21 06/25/24 History clopidogrel 75 mg tablet 75 mg PO QAM 06/17/21 06/25/24 History oxycodone 5 mg tablet 10 mg PO HS PRN Pain, Severe 12/01/21 06/25/24 History insulin regular human 100 unit/mL 30 unit subcut AC 12/31/21 06/25/24 History injection solution (Novolin R Regular U-100 Insulin) calcium acetate(phosphat bind) 667 667 mg PO AC 06/25/24 06/25/24 History mg tablet gabapentin 300 mg capsule 300 mg PO DAILY PRN Pain in feet 06/25/24 06/25/24 History metoprolol succinate 25 mg 12.5 mg PO QAM 06/25/24 06/25/24 History tablet,extended release 24 hr Patient History Medical History Chronic venous insufficiency of lower extremity Adjustment disorder with depressed mood Anemia CHF (congestive heart failure) Morbid obesity with BMI of 40.0-44.9, adult Suicidal ideation CAD (coronary artery disease) Ischemic cardiomyopathy EF 35-40% Cerebrovascular disease stroke 2013 Bifascicular bundle branch block Acute non-ST segment elevation myocardial infarction Kidney stone Surgical History Stented coronary artery JOAO placement to the Circumflex, Proximal LAD and mid LAD with 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 History of tonsillectomy H/O knee surgery S/P surgical manipulation of ankle joint Social History Smoking Status: Never smoker Second Hand Exposure: No; Do You Dip or Chew Tobacco: No; Hx Alcohol Use: No Hx Substance Use: No Preferred Language: Scottish Communication Ability: Effective Visual Impairment: No Limitations Hearing Ability: Normal Cylinder Devalver Required: No Beliefs That Will Affect Care: None marital status: Current Living Situation: Alone Current Living Situation Comment: alone in apartment building current occupational status: retired current occupation: Retired How many Children do You have: 3 Other Information That Helps Us Care for You: No Feels Safe at Home: Yes Safety Concerns: Feels Safe At This Time Diet: diabetic Diet Comment: Dialysis, caffeine: No Assistive Devices: Glasses Results & Data Vital Signs (Past 12 Hours) Vital Signs Temp Pulse Pulse Resp BP Pulse Ox O2 Del Method 06/26/24 07:52 37.4 C 81 18 95/61 L 90 Room Air 03/25/25 02:30 36.8 C 92 H 20 107/68 95 Room Air 06/25/24 23:57 37.1 C 98 H 20 114/70 92 Room Air (3) Hypotension Hypotension type: unspecified hypotension type Qualified Code(s): I95.9 - Hypotension, unspecified
[2024-06-26 11:26] VITALS: RESP 19; O2SAT 95
[2024-06-26] MEDS: MIDODRINE HCL 2.5 MG TAB PO SCH (11:59)
--- NOTE | 2024-06-26 12:02 | Hospitalist Progress Note ---
Date of Service June 26, 2024 Assessment & Plan (1) Hypotension: (2) ESRD (end stage renal disease) on dialysis: (3) Diabetes mellitus type 2 with complications: (4) ASCVD (arteriosclerotic cardiovascular disease): (5) Diabetic neuropathy: (6) Dyslipidemia, goal LDL below 70: Plan This is a 73 y/o male with insulin-requiring DM2, ESRD on HD, CAD s/p cardiac stent, hx HTN, prior CVA, hyperlipidemia, depression, CHF, and other history as outlined below who presents today from dialysis with low blood pressure and possible bradycardia. Work-up in the ED included EKG, which I personally reviewed, showing frequent PVCs in a bigeminy pattern. Upon my evaluation in the ED, pt was continue in a pattern of trigeminy on the monitor. His BPs in the ED have been in the 80s-90s systolic but pt reports he is not having symptoms. He currently feels at his baseline. He was referred for admission for further evaluation and possible dialysis. #Hypotension - asymptomatic #ESRD on HD - Admit to [facility] telemetry - monitor rhythm overnight, repeat EKG in AM - ECHO - Hold on cardiology evaluation for now pending ECHO results and clinical course overnight, has outpatient f/u scheduled for 07/12 - Consult nephrology for HD while admitted - Hold metoprolol and monitor BP - pt reports that he did not take today and has been taking sporadically at home - Labs in the AM - CBC, BMP #Insulin-requiring DM2 - Basal insulin with sliding scale ordered - Diabetic diet - A1c in AM - BSG ACHS #Hypertension - currently having issues with hypotension so medications on hold #ASCVD #Dyslipidemia - Holding metoprolol as above - Continue clopidogrel and statin #Diabetic neuropathy - chronic, stable - Continue prn gabapentin and oxycodone Pt seen and evaluated with collaborating physician, Dr. Charles. Plan of care discussed and as outlined above. Daughter updated at bedside - all questions answered. Code status: DNR/DNI DVT prophylaxis: subQ heparin I spent a total of 78 minutes coordinating, documenting, and providing care for this patient excluding time spent in the performance of separately billed services or time spent by another provider/QHP. Mar Oseguera PA-C Admission and Anticipated Discharge Date Admission Date: June 25, 2024 Results & Data Results & Data Vital Signs (Past 12 Hours) Vital Signs Temp Pulse Pulse Resp BP BP Pulse Ox 06/26/24 11:26 37.3 C 64 19 91/58 L 95 06/26/24 07:52 37.4 C 81 18 95/61 L 90 06/26/24 02:30 36.8 C 92 H 20 107/68 95 O2 Del Method 06/26/24 11:26 Room Air 06/26/24 07:52 Room Air 06/26/24 02:30 Room Air (1) Hypotension Hypotension type: unspecified hypotension type Qualified Code(s): I95.9 - Hypotension, unspecified (5) Diabetic neuropathy Diabetes mellitus complication detail: diabetic polyneuropathy Diabetes mellitus type: type 2 Qualified Code(s): E11.42 - Type 2 diabetes mellitus with diabetic polyneuropathy
[2024-06-26] MEDS: MIDODRINE HCL 2.5 MG TAB PO STA (12:54)
--- NOTE | 2024-06-26 13:12 | Electrocardiogram Report ---
Test Reason : Blood Pressure : */* mmHG Vent. Rate : 99 BPM Atrial Rate : 99 BPM P-R Int : 308 ms QRS Dur : 140 ms QT Int : 280 ms P-R-T Axes : 26 256 147 degrees QTcB Int : 359 ms Sinus rhythm with 1st degree A-V block with frequent Premature ventricular complexes in a pattern of bigeminy Right bundle branch block Inferior infarct Abnormal ECG When compared with ECG of 01-Dec-2021 18:46, Significant changes have occurred Confirmed by Addi Ansari ([id number]) on 06/26/2024 1:12:39 PM Referred By: REFERRED SELF Confirmed By: Addi Ansari
--- NOTE | 2024-06-26 14:20 | Electrocardiogram Report ---
Test Reason : Blood Pressure : */* mmHG Vent. Rate : 87 BPM Atrial Rate : 90 BPM P-R Int : * ms QRS Dur : 158 ms QT Int : 424 ms P-R-T Axes : * 262 110 degrees QTcB Int : 510 ms Wide QRS rhythm with occasional Premature ventricular complexes Right bundle branch block Anteroseptal infarct , age undetermined T wave abnormality, consider lateral ischemia Abnormal ECG When compared with ECG of 25-Jun-2024 11:48, (unconfirmed) Wide QRS rhythm has replaced Sinus rhythm Confirmed by Addi Ansari ([id number]) on 06/26/2024 2:20:40 PM Referred By: REFERRED SELF Confirmed By: Addi Ansari
[2024-06-26 17:02] VITALS: BP 113/68; TEMP 98.1
--- NOTE | 2024-06-26 17:37 | Discharge Summary ---
Discharge Summary Date of Service June 26, 2024 Principal Dx & Hospital Course #1 = Principal Diagnosis (1) Hypotension: (2) ESRD (end stage renal disease) on dialysis: (3) Diabetes mellitus type 2 with complications: (4) ASCVD (arteriosclerotic cardiovascular disease): (5) Diabetic neuropathy: (6) Dyslipidemia, goal LDL below 70: Plan This is a 73 y/o male with insulin-requiring DM2, ESRD on HD, CAD s/p cardiac stent, hx HTN, prior CVA, hyperlipidemia, depression, CHF, and other history as outlined below who presents today from dialysis with low blood pressure and possible bradycardia. Work-up in the ED included EKG showing frequent PVCs in a bigeminy pattern. His BPs in the ED have been in the 80s-90s systolic but pt reports he is not having symptoms. He currently feels at his baseline. He was referred for admission for further evaluation and possible dialysis. pt was sent over from his dialysis center due to bradycardia and hypotension noted there. On the day after admission, pt was seen by nephrology. He was refusing dialysis in the hospital despite a climbing potassium level and persistent EKG changes. Dr Callum Johnson, the [employer] architect noted the following: "...K came back at 6.3. I suggested him to have dialysis because of that and also frequent issues with Heart rhythm. He refused and said K was even higher last week. I said I did not agree with this and he will have to go home against medical advice...." Pt however initially refused to sign Against Medical Advice paperwork noting that his insurance will not cover his hospital stay if he signs. He demanded to speak with hospital administration who were notified. Case Management and supervisory nursing staff did speak with him and advised him that leaving against medical advice would not necessarily mean that his hospital stay would not be covered. Pt stated that his plan was to go back to [facility] for dialysis the next day. Pt also noting that he is aware that if his blood pressure remains low after discharge, that he would be unable to be dialyzed at [facility] the next day and would require admission to the hospital once more. As a result, pt was later agreeable to having dialysis done in the hospital. He was dialyzed on 06/26/24 and given midodrine to help with his blood pressure. No volume was removed. Pt with multiple questions after dialysis, requesting that the attending physician/hospitalist come to his hospital room. Per the recommendations of Nephrology, he was discharged home after his dialysis session with close Nephrology followup for dialysis and blood pressure monitoring as well as close followup with his PCP. He left in stable condition. I spent a total of 60 minutes of prolonged care time in discussion with pt and coordinating care with specialists, case management and administration as noted above on the day of discharge. Notes For Next Care Provider Please ensure close Nephrology and PCP followup after discharge. Medication Changes From Visit Holding home metoprolol in setting of hypotension- resume as quickly as able Admission HPI Per Admitting Provider This is a 73 y/o male with insulin-requiring DM2, ESRD on HD, CAD s/p cardiac stent, hx HTN, prior CVA, hyperlipidemia, depression, CHF, and other history as outlined below who presents today from dialysis with low blood pressure and possible bradycardia. Pt reports that this morning, before HD, he felt achy, tired, and mildly SOB but by the time he got to dialysis and settled, he was feeling back to his baseline. However, when the nurses took his vital signs, his BP was noted to be in the 80s and pulse rate was reported in the 30s so patient was referred to the ED for evaluation. His outpatient [facility] records were reviewed and note from nephrology earlier this month mentions BPs have been low in the 90s to 100s so he is to have an ECHO on 07/05 and f/u with cardiology on 07/12 (previously seen but lost to follow up in 2021). Pt reports that episodes of low BP have been asymptomatic. He reports feeling at baseline presently. He has noted progressive dyspnea on exertion over the last several weeks to months, noting that it takes less exertion than it did previously for him to feel winded . He reports dyspnea resolves after resting for 4-5 minutes. He admits to not always following the recommend diet for being diabetic and on HD. His metoprolol dose was recently halved due to these concerns of low BP, but pt reports he has not been taking this medication consistently anyway as he thought it might be making his BP worse. He denies chest pain, palpitations, syncope, recent illness, vomiting, change in bowel habits. He still makes urine described as 100 ml typically 4-5x/day, which is decreased from when he first started HD. Admission Exam Per Admitting Provider General: awake, alert, NAD HEENT: no scleral icterus, moist oral mucosa Neck: supple, trachea midline Heart: regular but frequent ectopic beats Lungs: CTA bilaterally Abdomen: soft, +BS Extremities: chronic stasis changes bilateral LE Neurologic: Ox3, no confusion or dysarthria, moving all extremities, no focal deficits. Discharge Exam Skin: scaling on lower extremities Psych: uncooperative mood and affect HEENT: NC/AT CV: RRR Resp: Breath sounds clear bilaterally, no increased effort of breathing Abdomen: Soft, nontender Extremities: No edema in lower extremities bilaterally. Updated Medication List Medication Instructions Recorded Confirmed Type atorvastatin 80 mg tablet 80 mg PO QAM 06/17/21 06/25/24 History clopidogrel 75 mg tablet 75 mg PO QAM 06/17/21 06/25/24 History oxycodone 5 mg tablet 10 mg PO HS PRN Pain, Severe 12/01/21 06/25/24 History insulin regular human 100 unit/mL 30 unit subcut AC 12/31/21 06/25/24 History injection solution (Novolin R Regular U-100 Insulin) calcium acetate(phosphat bind) 667 667 mg PO AC 06/25/24 06/25/24 History mg tablet gabapentin 300 mg capsule 300 mg PO DAILY PRN Pain in feet 06/25/24 06/25/24 History metoprolol succinate 25 mg 12.5 mg PO QAM 06/25/24 06/25/24 History tablet,extended release 24 hr Hospital Stay Data Consultations 06/25/24 15:50 ED Decision to Admit Stat 06/25/24 17:35 Consult Nephrology Routine Pending Results Patient Have Any Pending Studies at Discharge: No Discharge Instructions Given to Patient (Per Discharging Provider) Jose Pardo are being discharged home after dialysis on 06/26/24. Please keep close followup with your [employer] architect after discharge. They will answer all the questions you have about your medications. In the meantime while your blood pressure is on the lower end, please do not take your home metoprolol. Please also keep close follow up with your primary care provider after discharge. Please do not hesitate to come back to the emergency room if your symptoms worsen or return. It was a pleasure taking care of you while you were here. Total Time Total Time Spent Total Time Spent (In Minutes): 60
[2024-06-26 17:48] VITALS: PULSE 92
== END 2024-06-26 18:33 | disposition home or self-care (01) | DRG 314 ==
LOC: ED 11:35 → SUATTDRO 16:00 → 2W 16:00

== ENCOUNTER 2024-06-28 13:39 | Inpatient (IN) ==
[2024-06-28] MEDS: ASPIRIN CHEW 324 MG PO STA (14:15)
[2024-06-28] MEDS: CALCIUM GLUCONATE 1,000 MG/60 ML BAG IV STA (14:15)
--- NOTE | 2024-06-28 14:22 | XRay Report ---
XR chest 1V portable CLINICAL HISTORY: Chest pain, nonspecific COMPARISON STUDY: 06/25/2024 FINDINGS: Stable right dialysis catheter. Stable mild cardiomegaly without pulmonary vascular congest ion. Inspiration is shallow. There is increased stranding at the right base with partial obscuration of the right hemidiaphragm. No pneumothorax. IMPRESSION: Atelectasis versus early pneumonia right lung base. ACT 112: Negative or not required by law. Electronically signed by: Harish Camarillo M.D. 06/28/2024 2:21 PM
[2024-06-28 14:30] LABS: iSTAT Creatinine 11.3 mg/dl (0.6-1.3); iSTAT Hemoglobin 12.6 g/dl (14.0-18.0); iSTAT Ionized Calcium 0.98 mmol/l (1.12-1.32); iSTAT Potassium 6.3 mmol/L (3.3-5.0)
[2024-06-28 14:32] LABS: Basophils # (auto) 0.05 K/uL (0.00-0.20); Basophils % (auto) 0.6 %; Eosinophils # (auto) 0.37 K/uL (0.00-0.50); Eosinophils % (auto) 4.3 %; Hematocrit (blood only) 35.5 % (42.0-52.0); Hemoglobin 12.2 g/dl (14.0-18.0); Immature Granulocytes # (auto) 0.03 K/uL (0.01-0.20); Immature Granulocytes % (auto) 0.4 %; Lymphocytes # (auto) 1.45 K/uL (1.20-3.40); Lymphocytes % (auto) 16.9 %; Mean Corpuscular Hemoglobin 33.1 pg (25.0-34.0); Mean Corpuscular Hgb Conc 34.4 g/dL (32.0-36.0); Mean Corpuscular Volume 96.2 fL (80.0-100.0); Mean Platelet Volume 11.6 fL (9.4-12.4); Monocytes # (auto) 0.94 K/uL (0.11-0.59); Neutrophils # (auto) 5.73 K/uL (1.40-6.50); Neutrophils % (auto) 66.8 %; Platelet Count 145 K/uL (130-400); RDW Coefficient of Variation 14.1 % (11.5-14.5); RDW Standard Deviation 49.5 fL (36.4-46.3); Red Blood Count 3.69 M/uL (4.70-6.10); White Blood Count 8.57 K/ul (4.8-10.8)
[2024-06-28] MEDS: INSULIN HUMAN REGULAR PER UNIT 10 UNITS in SYRINGE 9.9 ML IV STA (14:36)
[2024-06-28] MEDS: ALBUTEROL 0.5% NEB SOLN 2.5 MG/0.5 ML VIAL NEB STA (14:37)
[2024-06-28] MEDS: DEXTROSE 50% 50 ML SYRINGE IV STA (14:37)
[2024-06-28 14:58] LABS: Anion Gap 13 (3-11); BUN Creatinine Ratio 6.2 (10-20); Blood Urea Nitrogen 63 mg/dl (6-23); Calcium 9.1 mg/dl (8.6-10.3); Carbon Dioxide 26 mmol/L (21-32); Chloride 93 mmol/L (98-107); Glucose 195 mg/dl (70-99(Fasting)); Lipase 11 U/L (11-82); Sodium 132 mmol/L (136-145)
[2024-06-28 15:02] LABS: Troponin I High Sensitivity 512.1 pg/ml (0-20)
[2024-06-28] MEDS: CEFEPIME 1000MG 1,000 MG/10 ML SYR IV STA (15:14)
--- NOTE | 2024-06-28 15:31 | History & Physical Report ---
Date of Service June 28, 2024 Assessment & Plan (1) Acute hyperkalemia: (2) ESRD (end stage renal disease) on dialysis: Plan: Jignesh Grover III is a medically complex 73y/o M with PMHx significant for insulin- dependent DM type II, proliferative diabetic retinopathy of right eye without macular edema associated with DM type II, right vitreous hemorrhage, diabetic neuropathy leading to unsteady gait, HLD, HTN, cerebrovascular disease, history of prior CVA in 2013, ESRD on HD M/W/, CAD s/p high-risk PCI with JOAO placement to the circumflex/proximal LAD/mid LAD with a HEART COORDINATOR of the RCA, chronic combined systolic and diastolic congestive heart failure, ischemic cardiomyopathy, history of NSTEMI, bifascicular bundle branch block, morbid obesity, right cubital tunnel syndrome, chronic pain due to nerve impingement, venous stasis dermatitis of bilateral lower extremities, chronic acquired lymphedema, anemia and depression who presented to the ED with complaint of SOB and generalized weakness. History obtained from the patient, discussion with ED provider and associated chart review. Patient recently admitted under our service from 06/25/2024 to 06/26/2024. Found to be hyperkalemic at that time with potassium of 6.3 and initially refused HD despite a climbing potassium level and persistent EKG changes. There was initial concern that the patient would leave AMA however he was then later agreeable to undergo HD on 06/26/2024. He was given midodrine to help with his blood pressure and no volume was removed during the HD session at that time. Last full dialysis session with fluid removal was on 06/22/2024 (total volume removed unknown). Usual HD schedule is M// - gets done at [facility]. Was to have routine HD session yesterday however did not attend this as he states he was unaware of the appointment. Known history of medical noncompliance. Still makes about 150cc of urine/day. Cr up to 10.21 today. Reports feeling overall pretty weak and easily fatigued with minimal exertion. Also with some increased SOB with exertion beginning this morning. Appears volume overloaded on exam. Initial laboratory evaluation remarkable for potassium of 6.3; S/p albuterol nebulizer treatment, insulin plus D5, calcium gluconate and Lokelma. Repeat potassium = 5.7 with these measures. Case discussed with Dr. Johnson over the phone this afternoon. Will plan for HD session tomorrow in order to get the patient back on his normal M/W/F schedule. Continue Lokelma for now. Follow repeat BMPs to monitor potassium level closely. (3) Elevated troponin: Plan: Denies any chest pain. Likely secondary to above ESRD. EKG without obvious acute ST changes. Obtain updated TTE as per below. Continue to trend troponin Q4H until flat. (4) Hypertension: Plan: Endorses not taking his metoprolol succinate since 06/26/2024 - this was stopped due to bradycardia and telemetry monitoring showing frequent PVCs in a bigeminy pattern during his previous admission. Notes his HR was in the 40s earlier today. Was not lightheaded or dizzy when this occurred however did feel slightly nauseous but no episodes of vomiting. HR improved the ED. Will resume metoprolol succinate however will increase dose to 12.5mg BID pending cardiology consultation. Obtain updated TTE. Prior TTE with mildly reduced LVEF of 45 to 50%, abnormal septal wall motion consistent with conduction delay and moderate hypokinesis of the apex, grade 1 diastolic dysfunction, moderately calcified aortic valve with mild aortic stenosis, mild mitral regurgitation, mild tricuspid regurgitation and mild enlargement of the aortic root measuring 4.3 cm. 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 EKG with sinus tachycardia with first-degree AV block with frequent PVCs in a pattern of bigeminy, RBBB, peaked T waves and widened QRS. (6) Insulin dependent type 2 diabetes mellitus: Plan: SSI regimen while inpatient. BSG checks ACHS. Most recent Hgb A1c was 8.7% 2 days ago. Appreciate assistance of glycemic pharmacy. Other Chronic Medical Conditions: H/O CVA, HLD & CAD S/P Stenting - Continue statin and Plavix. Diabetic Neuropathy - Continue gabapentin as needed. Obtain PT/OT evaluations in the setting of above. DVT Prophylaxis: SQ Heparin Code Status: DNR/DNI - Discussed with patient at bedside. PCP: Itz Niño, Disposition: Admit to PCU for further inpatient evaluation and management. Patient seen in collaboration with Dr. Rubi. Please see addendum. I spent a total of 60 minutes coordinating, documenting, and providing care for this patient excluding time spent in the performance of separately billed services or time spent by another provider/QHP. This included personally reviewing all current laboratories and imaging studies, medical reconciliation, outpatient chart review and discussion with specialists. This chart was completed in part utilizing Speech Voice Recognition Software. Grammatical errors, random word insertions, pronoun errors, and incomplete sentences are an occasional consequence of this system due to software limitations, ambient noise, and hardware issues. Any formal questions or co ncerns about the content, text, or information contained within the body of this dictation should be directly addressed to the provider for clarification. History of Present Illness Chief Complaint: Generalized Weakness, SOB Primary Care Provider: Itz Niño DO Jignesh Grover III is a medically complex 73y/o M with PMHx significant for insulin- dependent DM type II, proliferative diabetic retinopathy of right eye without macular edema associated with DM type II, right vitreous hemorrhage, diabetic neuropathy leading to unsteady gait, HLD, HTN, cerebrovascular disease, history of prior CVA in 2013, ESRD on HD M/W/, CAD s/p high-risk PCI with JOAO placement to the circumflex/proximal LAD/mid LAD with a HEART COORDINATOR of the RCA, chronic combined systolic and diastolic congestive heart failure, ischemic cardiomyopathy, history of NSTEMI, bifascicular bundle branch block, morbid obesity, right cubital tunnel syndrome, chronic pain due to nerve impingement, venous stasis dermatitis of bilateral lower extremities, chronic acquired lymphedema, anemia and depression who presented to the ED with complaint of SOB and generalized weakness. History obtained from the patient, discussion with ED provider and associated chart review. Patient recently admitted under our service from 06/25/2024 to 06/26/2024. Found to be hyperkalemic at that time with potassium of 6.3 and initially refused HD despite a climbing potassium level and persistent EKG changes. There was initial concern that the patient would leave AMA however he was then later agreeable to undergo HD on 06/26/2024. He was given midodrine to help with his blood pressure and no volume was removed during the HD session at that time. Last full dialysis session with fluid removal was on 06/22/2024 (total volume removed unknown). Usual HD schedule is M/W/F - gets done at [facility]. Was to have routine HD session yesterday however did not attend this as he states he was unaware of the appointment. Patient with prominent history of medical noncompliance. Still makes about 150cc of urine/day. Endorses not taking his metoprolol succinate since 06/26/2024 - this was stopped due to bradycardia and telemetry monitoring showing frequent PVCs in a bigeminy pattern during his previous admission. Notes his HR was in the 40s earlier today. Was not lightheaded or dizzy when this occurred however did feel slightly nauseous but no episodes of vomiting. HR improved the ED. Reports feeling overall pretty weak and easily fatigued with minimal exertion. Also with some increased SOB with exertion beginning this morning. Endorses he cannot walk even a few steps without getting winded. BP remains on the softer side. Initial laboratory evaluation remarkable for potassium of 6.3 and creatinine of 10.21. Initial troponin 512.1, repeat troponin 458.9; EKG with sinus tachycardia with first-degree AV block with frequent PVCs in a pattern of bigeminy, RBBB, peaked T waves and widened QRS. S/p albuterol nebulizer treatment, insulin plus D5, calcium gluconate and Lokelma in the ED. Repeat potassium improved to 5.7 with these measures. Case discussed with Dr. Johnson over the phone this afternoon. Will plan for HD session tomorrow in order to get the patient back on his normal M// schedule. Allergies Allergy/AdvReac Type Severity Reaction Status Date / Time losartan Allergy Diarrhea Unverified 06/25/24 14:33 lisinopril AdvReac Severe Cough Verified 06/25/24 14:33 Home Medications Medication Instructions Recorded Confirmed Type atorvastatin 80 mg tablet 80 mg PO QAM 06/17/21 06/28/24 History clopidogrel 75 mg tablet 75 mg PO QAM 06/17/21 06/28/24 History oxycodone 5 mg tablet 10 mg PO HS PRN Pain, Severe 12/01/21 06/28/24 History insulin regular human 100 unit/mL 30 unit subcut AC 12/31/21 06/28/24 History injection solution (Novolin R Regular U-100 Insulin) calcium acetate(phosphat bind) 667 667 mg PO AC 06/25/24 06/28/24 History mg tablet gabapentin 300 mg capsule 300 mg PO DAILY PRN Pain in feet 06/25/24 06/28/24 History metoprolol succinate 25 mg 12.5 mg PO QAM 06/25/24 06/28/24 History tablet,extended release 24 hr Past Med/Surg History Problem List Insulin dependent type 2 diabetes mellitus Elevated troponin Ventricular bigeminy seen on football coach Hyperkalemia (Acute) Acute hyperkalemia (Acute) Hypotension (Acute) ESRD (end stage renal disease) on dialysis Hypotension Chronic acquired lymphedema Hypertension Dyslipidemia, goal LDL below 70 ASCVD (arteriosclerotic cardiovascular disease) Ischemic cardiomyopathy Adjustment disorder with mixed disturbance of emotions and conduct Hyperkalemia Diabetic neuropathy Dyslipidemia Diabetes mellitus type 2 with complications Hypertensive heart disease Medical History Chronic venous insufficiency of lower extremity Adjustment disorder with depressed mood Anemia CHF (congestive heart failure) Morbid obesity with BMI of 40.0-44.9, adult Suicidal ideation CAD (coronary artery disease) Ischemic cardiomyopathy EF 35-40% Cerebrovascular disease stroke 2013 Bifascicular bundle branch block Acute non-ST segment elevation myocardial infarction Kidney stone Surgical History Stented coronary artery JOAO placement to the Circumflex, Proximal LAD and mid LAD with a HEART COORDINATOR of his RCA History of tonsillectomy H/O knee surgery S/P surgical manipulation of ankle joint Social History Smoking Status: Never smoker Second Hand Exposure: No; Do You Dip or Chew Tobacco: No; Hx Alcohol Use: No Hx Substance Use: No Preferred Language: Stateless Communication Ability: Effective Visual Impairment: No Limitations Hearing Ability: Normal Importer Or Exporter Required: No Beliefs That Will Affect Care: None marital status: Current Living Situation: Alone Current Living Situation Comment: alone in apartment building current occupational status: retired current occupation: Retired How many Children do You have: 3 Other Information That Helps Us Care for You: No Feels Safe at Home: Yes Safety Concerns: Feels Safe At This Time Diet: diabetic Diet Comment: Dialysis, caffeine: No Assistive Devices: Scooter/Electric Scooter and Wheelchair Review of Systems Review of Systems: At least ten systems reviewed and negative, except as noted in the HPI. Physical Exam Physical Exam: Please refer to Dr. Rubi's addendum for physical examination findings. Results & Data Results & Data Vital Signs (Past 12 Hours) Vital Signs Temp Pulse Pulse Resp BP BP Pulse Ox 06/28/24 15:22 113 H 28 H 108/60 92 06/28/24 15:11 92 H 18 86/57 L 93 06/28/24 15:00 99 H 28 H 103/55 L 93 06/28/24 14:51 100 H 26 H 106/61 95 06/28/24 14:47 102 H 24 96/67 L 94 06/28/24 14:31 94 H 26 H 117/53 L 92 06/28/24 14:29 124 H 06/28/24 14:23 06/28/24 14:23 87 26 H 114/56 L 95 06/28/24 14:23 06/28/24 14:15 113 H 28 H 114/56 L 90 06/28/24 14:00 86 26 H 85/45 L 95 06/28/24 13:44 36.8 C 43 L 18 97/54 L 92 O2 Del Method 06/28/24 15:22 Room Air 06/28/24 15:11 Room Air 06/28/24 15:00 Room Air 06/28/24 14:51 Room Air 06/28/24 14:47 Room Air 06/28/24 14:31 Room Air 06/28/24 14:29 06/28/24 14:23 Room Air 06/28/24 14:23 Room Air 06/28/24 14:23 Room Air 06/28/24 14:15 Room Air 06/28/24 14:00 Room Air 06/28/24 13:44 Room Air Laboratory Results Short CBC 06/28/24 Range/Units 14:14 WBC 8.57 (4.8-10.8) K/ul Hgb 12.2 L (14.0-18.0) g/dl Hct 35.5 L (42.0-52.0) % Plt Count 145 (130-400) K/uL BMP 06/28/24 06/28/24 14:14 15:20 Sodium 132 L Potassium TNP 5.7 H Chloride 93 L Carbon Dioxide 26 BUN 63 H Creatinine 10.21 H* Glucose 195 H Calcium 9.1 Diagnostic Findings Chest X-Ray 06/28/24 14:11 XR chest 1V portable CLINICAL HISTORY: Chest pain, nonspecific COMPARISON STUDY: 06/25/2024 FINDINGS: Stable right dialysis catheter. Stable mild cardiomegaly without pulmonary vascular congestion. Inspiration is shallow. There is increased stranding at the right base with partial obscuration of the right hemidiaphragm. No pneumothorax. IMPRESSION: Atelectasis versus early pneumonia right lung base. ACT 112: Negative or not required by law. Electronically signed by: Harish Camarillo M.D. 06/28/2024 2:21 PM Medications Administered Calcium Acetate (Calcium Acetate 667 Mg Cap/Tab) 667 mg PO AC JAYA Stop: 07/28/24 17:59 Last Admin: 06/28/24 18:49 Dose: 667 mg Documented By: CAROLIN Insulin Aspart (Insulin Aspart Per Unit Charge) 0 units SC ACHS JAYA Stop: 07/28/24 17:51 Last Admin: 06/28/24 18:50 Dose: 3 units Documented By: CAROLIN Co-signed By: [facility] Discontinued Medications Albuterol (Albuterol 0.5% Neb Soln 2.5 Mg/0.5 Ml Vial) 10 mg NEB NOW STA Stop: 06/28/24 14:18 Last Admin: 06/28/24 14:37 Dose: 10 mg Documented By: MARK Aspirin (Aspirin Chew 324 Mg) 324 mg PO NOW STA Stop: 06/28/24 14:11 Last Admin: 06/28/24 14:15 Dose: 324 mg Documented By: MARK Dextrose (Dextrose 50% 50 Ml Syringe) 50 ml IV NOW STA Stop: 06/28/24 14:18 Last Admin: 06/28/24 14:37 Dose: 50 ml Documented By: MARK Calcium Gluconate () 1,000 mg in 60 mls @ 240 mls/hr IV NOW STA Stop: 06/28/24 14:24 Last Infusion: 06/28/24 14:30 Dose: Infused Documented By: Admin: 06/28/24 14:15 Dose: 240 mls/hr Documented By: MARK Insulin Human Regular 10 units (/ Syringe) 9.9 mls @ 3 mls/sec IV ONE STA Stop: 06/28/24 14:18 Last Admin: 06/28/24 14:36 Dose: 3 mls/sec Documented By: MARK Co-signed By: LETTY Cefepime HCl (Maxipime 2000mg) 1,000 mg in 10 mls @ 5 mls/min IV NOW STA; Protocol Stop: 06/28/24 14:54 Last Admin: 06/28/24 15:14 Dose: 5 mls/min Documented By: SHALOM Insulin Glargine (Lantus Per Unit Charge) 20 units SC ONE ONE Stop: 06/28/24 18:16 Last Admin: 06/28/24 18:49 Dose: 20 units Documented By: CAROLIN Co-signed By: HDC Code Status & VTE Plan Code Status DNR/DNI Supervising Physician Co-Signing Physician Notes Patient is a 73-year-old male with history of end-stage renal disease on dialysis, diabetes mellitus, CVA, coronary disease, chronic lymphedema and other medical problems presents with history of generalized weakness, fatigue, some dyspnea on exertion. He was evaluated at [facility] 3 days ago and was found to be hyperkalemic and refused dialysis at the time. Patient has not been taking his metoprolol as concerned for low heart rate. He denies any dizziness, palpitations, syncopal episode. Please review HPI for complete details of presentation. I personally reviewed blood work and imaging studies. Blood work showed sodium 132, potassium 5.7, chloride 93, creatinine 10.2, BUN 63, elevated troponin levels. Procalcitonin 0.93. Patient denies any cough, fever, chills. COVID, influenza, RSV negative. Chest x-ray showed no clear pneumonia. Physical Exam: Vitals signs as noted above General Appearance: Morbidly obese, no apparent distress Head: normocephalic, Atraumatic Eyes: normal inspection, EOMI Neck: supple, Trachea midline Respiratory/Chest: Normal breath sounds, CTA, No accessory muscle use Cardiovascular: S1, S2, distant heart sounds, no murmur Abdomen/GI:Soft, Non tender, Bowel sounds present Extremities/Musculoskeletal:normal inspection, chronic lymphedema, mild erythema, chronic venous stasis changes Neurologic/Psych:AAOX3, grossly no focal neurological deficits Skin: normal color, warm Hyperkalemia Volume overload End-stage renal disease on dialysis Hyponatremia likely dilutional Chronic troponin elevation in setting of end-stage renal disease Abnormal EKG with PVCs, bigeminy, sinus tachycardia Patient received insulin, albuterol, calcium gluconate Continue Lokelma Monitor potassium levels closely Nephrology consulted to help with dialysis Given abnormal EKG, will check resting echo Patient prefers cardiology evaluation as well ? Bradycardia likely due to bigeminy I personally interviewed and examined the patient at bedside. I have reviewed the advanced practitioner's documentation on the date of service referred in note and agree with plan. Patient's care is coordinated with Kaylyn Tierney PA-C. Please refer to the documentation above for details of patient's presentation and for discussion of other issues. I spent a total [id number] coordinating, documenting, and providing care for this patient excluding time spent in the performance of separately billed services or time spent by another provider/QHP. (4) Hypertension Hypertension type: unspecified Qualified Code(s): I10 - Essential (primary) hypertension
[2024-06-28 15:52] LABS: Potassium 5.7 mmol/L (3.5-5.1)
[2024-06-28 16:09] LABS: INR 1.1 (0.9-1.1); Partial Thromboplastin Ratio 0.9; Partial Thromboplastin Time 23 Seconds (21-31); Prothrombin Time 11.9 Seconds (9.0-12.0)
[2024-06-28 16:15] LABS: Influenza A virus by PCR Negative (Neg); Influenza B virus by PCR Negative (Neg); RSV by PCR Negative (Neg); SARS CoV2 RNA(COVID-19) Ceph NEGATIVE (Negative)
--- NOTE | 2024-06-28 16:16 | Emergency Department Note ---
History of Present Illness General Chief Complaint: Shortness of Breath/Dyspnea Stated Complaint: SOB, PULSE WAS 40 ALL DAY Time Seen by Provider: 06/28/24 14:04 History of Present Illness Provider Complaint: shortness of breath Onset (ago): day(s) (2) Consistency/Duration: + progressively worsening Relieved By: + upright position Exacerbated By: + lying flat Associated symptoms: + orthopnea; no chest pain, no cough or no abdominal pain HPI Narrative: End-stage renal disease Tuesday on hemodialysis through [facility] in his right chest. Patient states he did not get dialysis yesterday. He states his last dialysis within the hospital on Tuesday. Home Medications Medication Instructions Recorded Confirmed Type atorvastatin 80 mg tablet 80 mg PO QAM 06/17/21 06/28/24 History clopidogrel 75 mg tablet 75 mg PO QAM 06/17/21 06/28/24 History oxycodone 5 mg tablet 10 mg PO HS PRN Pain, Severe 12/01/21 06/28/24 History insulin regular human 100 unit/mL 30 unit subcut AC 12/31/21 06/28/24 History injection solution (Novolin R Regular U-100 Insulin) calcium acetate(phosphat bind) 667 667 mg PO AC 06/25/24 06/28/24 History mg tablet gabapentin 300 mg capsule 300 mg PO DAILY PRN Pain in feet 06/25/24 06/28/24 History metoprolol succinate 25 mg 12.5 mg PO QAM 06/25/24 06/28/24 History tablet,extended release 24 hr Allergies Allergy/AdvReac Type Severity Reaction Status Date / Time losartan Allergy Diarrhea Unverified 06/25/24 14:33 lisinopril AdvReac Severe Cough Verified 06/25/24 14:33 Past Med/Surg History Problem List (Updated 06/28/24 @ 16:29 by Conner Patel MD) Hyperkalemia (Acute) Acute hyperkalemia (Acute) Hypotension (Acute) ESRD (end stage renal disease) on dialysis Hypotension Chronic acquired lymphedema Hypertension Dyslipidemia, goal LDL below 70 ASCVD (arteriosclerotic cardiovascular disease) Ischemic cardiomyopathy Adjustment disorder with mixed disturbance of emotions and conduct Hyperkalemia Diabetic neuropathy Dyslipidemia Diabetes mellitus type 2 with complications Hypertensive heart disease Medical History Chronic venous insufficiency of lower extremity Adjustment disorder with depressed mood Anemia CHF (congestive heart failure) Morbid obesity with BMI of 40.0-44.9, adult Suicidal ideation CAD (coronary artery disease) Ischemic cardiomyopathy EF 35-40% Cerebrovascular disease stroke 2013 Bifascicular bundle branch block Acute non-ST segment elevation myocardial infarction Kidney stone Surgical History Stented coronary artery JOAO placement to the Circumflex, Proximal LAD and mid LAD with a NC MANAGER of his RCA History of tonsillectomy H/O knee surgery S/P surgical manipulation of ankle joint Social History Smoking Status: Never smoker Second Hand Exposure: No; Do You Dip or Chew Tobacco: No; Hx Alcohol Use: No Hx Substance Use: No Preferred Language: [place] Communication Ability: Effective Visual Impairment: No Limitations Hearing Ability: Normal Chipper Feeder Required: No Beliefs That Will Affect Care: None marital status: Current Living Situation: Alone Current Living Situation Comment: alone in apartment building current occupational status: retired current occupation: Retired How many Children do You have: 3 Feels Safe at Home: Yes Diet: diabetic Diet Comment: Dialysis, caffeine: No Assistive Devices: Scooter/Electric Scooter and Walker Physical Exam 2 Vital Signs: Vital Signs - 24 hr 06/28/24 13:44 06/28/24 14:00 06/28/24 14:15 Temperature 36.8 C Temperature Source Skin Pulse Rate 43 L 86 113 H Pulse Rate [Apical ] Respiratory Rate 18 26 H 28 H Respiratory Effort / Characteristics Blood Pressure 97/54 L 85/45 L 114/56 L Blood Pressure [Ri ght Arm] Blood Pressure Yajaira n 68 63 66 Blood Pressure Yajaira n [Right Arm] Pulse Oximetry 92 95 90 Oxygen Delivery Me thod Room Air Room Air Room Air Sepsis Recent Feve r Within 48 Hours No Sepsis New/Unexpla ined Change in Men gil Status No Sepsis Action Take n by Nursing No Action Required 06/28/24 14:23 06/28/24 14:23 06/28/24 14:23 Temperature Temperature Source Pulse Rate Pulse Rate [Apical ] 87 Respiratory Rate 26 H Respiratory Effort / Characteristics Short of Breath Blood Pressure Blood Pressure [Ri ght Arm] 114/56 L Blood Pressure Yajaira n Blood Pressure Yajaira n [Right Arm] 75 Pulse Oximetry 95 Oxygen Delivery Me thod Room Air Room Air Room Air Sepsis Recent Feve r Within 48 Hours Sepsis New/Unexpla ined Change in Men gil Status Sepsis Action Take n by Nursing 06/28/24 14:29 06/28/24 14:31 06/28/24 14:47 Temperature Temperature Source Pulse Rate 124 H 94 H 102 H Pulse Rate [Apical ] Respiratory Rate 26 H 24 Respiratory Effort / Characteristics Blood Pressure 117/53 L 96/67 L Blood Pressure [Ri ght Arm] Blood Pressure Yajaira n 84 69 Blood Pressure Yajaira n [Right Arm] Pulse Oximetry 92 94 Oxygen Delivery Me thod Room Air Room Air Sepsis Recent Feve r Within 48 Hours Sepsis New/Unexpla ined Change in Men gil Status Sepsis Action Take n by Nursing 06/28/24 14:51 06/28/24 15:00 06/28/24 15:11 Temperature Temperature Source Pulse Rate 100 H 99 H 92 H Pulse Rate [Apical ] Respiratory Rate 26 H 28 H 18 Respiratory Effort / Characteristics Blood Pressure 106/61 103/55 L 86/57 L Blood Pressure [Ri ght Arm] Blood Pressure Yajaira n 86 75 67 Blood Pressure Yajaira n [Right Arm] Pulse Oximetry 95 93 93 Oxygen Delivery Me thod Room Air Room Air Room Air Sepsis Recent Feve r Within 48 Hours Sepsis New/Unexpla ined Change in Men gil Status Sepsis Action Take n by Nursing 06/28/24 15:22 Temperature Temperature Source Pulse Rate 113 H Pulse Rate [Apical ] Respiratory Rate 28 H Respiratory Effort / Characteristics Blood Pressure 108/60 Blood Pressure [Ri ght Arm] Blood Pressure Yajaira n 75 Blood Pressure Yajaira n [Right Arm] Pulse Oximetry 92 Oxygen Delivery Me thod Room Air Sepsis Recent Feve r Within 48 Hours Sepsis New/Unexpla ined Change in Men gil Status Sepsis Action Take n by Nursing Physical Exam: Physical Exam GENERAL: oriented to person, place, and time. appears well-developed and well- nourished. HENT: Exam performed. - Head: Normocephalic and atraumatic. EYES: Conjunctivae and EOM are normal. Right eye exhibits no discharge. Left eye exhibits no discharge. No scleral icterus. NECK: Normal range of motion. Neck supple. No JVD present. CV: Normal rate, regular rhythm, normal heart sounds and intact distal pulses. Palpable radial pulses bue. PULM/CHEST: Rales bilaterally.Permacath in the patient's right chest. ABD: The abdomen is soft. There is no tenderness. NEURO: Motor and sensation grossly intact. Course Course 1404: The patient was evaluated in room C12. A complete history and physical exam was performed Cardiac monitoring: An order was placed for continuous cardiac monitoring. The monitor shows a rate of 100 with sinus rhythm interpreted by ia EKG shows wide QRS and peaked T waves. Patient will be treated with calcium gluconate 1 g. I-STAT will be conducted also. External medical records reviewed. Patient was discharged from the hospital 2 days ago after being admitted 3 days ago. Patient was seen by nephrology. His potassium was 6.3. Nephrology had initially recommended dialyzing the patient and the patient refused. Patient then stated he wanted to leave AMA. When he was given the option to leave AMA he then declined to leave AMA and then stated he wanted dialysis. Patient was last dialyzed on Tuesday. 1418: Patient's i-STAT potassium 6.3. Patient will be treated with albuterol 10 mg given his shortness of breath complaint and his hyperkalemia as well as EKG changes. Insulin and 1 amp of D50 also ordered for the patient. Lokelma ordered for the patient. 1500: Patient's chest x-ray shows possible pneumonia. Cefepime ordered for the patient. Patient's lab potassium is hemolyzed. It was most likely greater than 6 given his EKG changes. Albuterol insulin dextrose calcium gluconate and first dose of Lokelma given to the patient. Will redraw the patient's potassium to see if these interventions have helped his hyperkalemia. Patient will be admitted to the [facility] hospitalist team. 1555: Vital signs stable. Status post albuterol, IV insulin and dextrose, Lokelma, and calcium gluconate the patient's potassium is now 5.7. Discussed with Dr. Cohn on-call [facility] nephrology who knows the patient and he states he will dialyze him tomorrow. Administered Medications Discontinued Medications Albuterol (Albuterol 0.5% Neb Soln 2.5 Mg/0.5 Ml Vial) 10 mg NEB NOW STA Stop: 06/28/24 14:18 Last Admin: 06/28/24 14:37 Dose: 10 mg Documented By: MMG Aspirin (Aspirin Chew 324 Mg) 324 mg PO NOW STA Stop: 06/28/24 14:11 Last Admin: 06/28/24 14:15 Dose: 324 mg Documented By: MARK Dextrose (Dextrose 50% 50 Ml Syringe) 50 ml IV NOW STA Stop: 06/28/24 14:18 Last Admin: 06/28/24 14:37 Dose: 50 ml Documented By: MARK Calcium Gluconate () 1,000 mg in 60 mls @ 240 mls/hr IV NOW STA Stop: 06/28/24 14:24 Last Infusion: 06/28/24 14:30 Dose: Infused Documented By: Admin: 06/28/24 14:15 Dose: 240 mls/hr Documented By: MARK Insulin Human Regular 10 units (/ Syringe) 9.9 mls @ 3 mls/sec IV ONE STA Stop: 06/28/24 14:18 Last Admin: 06/28/24 14:36 Dose: 3 mls/sec Documented By: MARK Co-signed By: LETTY Cefepime HCl (Maxipime 2000mg) 1,000 mg in 10 mls @ 5 mls/min IV NOW STA; Protocol Stop: 06/28/24 14:54 Last Admin: 06/28/24 15:14 Dose: 5 mls/min Documented By: SHALOM Medical Decision Making Medical Records Attestation: I reviewed the patient's medical records. External medical records reviewed. Patient was discharged from the hospital 2 days ago after being admitted 3 days ago. Patient was seen by nephrology. His potassium was 6.3. Nephrology had initially recommended dialyzing the patient and the patient refused. Patient then stated he wanted to leave AMA. When he was given the option to leave AMA he then declined to leave AMA and then stated he wanted dialysis. Patient was last dialyzed on Tuesday. Laboratory Data Attestation: I reviewed the patient's lab results. 06/28/24 14:14 06/28/24 15:20 Lab Results 06/28/24 06/28/24 06/28/24 Range/Units 14:13 14:14 15:09 WBC 8.57 (4.8-10.8) K/ul RBC 3.69 L (4.70-6.10) M/uL Hgb 12.2 L (14.0-18.0) g/dl POC Hgb 12.6 L (14.0-18.0) g/dl Hct 35.5 L (42.0-52.0) % POC Hct 37 L (42-52) % MCV 96.2 (80.0-100.0) fL MCH 33.1 (25.0-34.0) pg MCHC 34.4 (32.0-36.0) g/dL RDW Std Deviation 49.5 H (36.4-46.3) fL RDW Coeff of Nasim 14.1 (11.5-14.5) % Plt Count 145 (130-400) K/uL MPV 11.6 (9.4-12.4) fL Immature Gran % (Auto) 0.4 % Neut % (Auto) 66.8 % Lymph % (Auto) 16.9 % Stevens % (Auto) 11.0 % Eos % (Auto) 4.3 % Baso % (Auto) 0.6 % Neut # (Auto) 5.73 (1.40-6.50) K/uL Lymph # (Auto) 1.45 (1.20-3.40) K/uL Stevens # (Auto) 0.94 H (0.11-0.59) K/uL Eos # (Auto) 0.37 (0.00-0.50) K/uL Baso # (Auto) 0.05 (0.00-0.20) K/uL Immature Gran # (Auto) 0.03 (0.01-0.20) K/uL PT Cancelled INR Cancelled APTT Cancelled PTT Ratio Cancelled POC Sodium 131 L (135-144) mmol/L Sodium 132 L (136-145) mmol/L POC Potassium 6.3 H* (3.3-5.0) mmol/L Potassium TNP POC Chloride 97 L (101-112) mmol/L Chloride 93 L (98-107) mmol/L Carbon Dioxide 26 (21-32) mmol/L POC Total CO2 24 (24-31) mmol/L Anion Gap 13 H (3-11) POC Anion Gap 17.0 (16-25) mmol/L POC BUN 68 H (7-18) mg/dl BUN 63 H (6-23) mg/dl Creatinine 10.21 H* (0.6-1.4) mg/dl POC Creatinine 11.3 H* (0.6-1.3) mg/dl Est Cr Clr Drug Dosing 9.0 ml/min eGFR 4.89 BUN/Creatinine Ratio 6.2 L (10-20) Glucose 195 H (70-99(Fasting)) mg/dl POC Glucose 250 H (70-99) mg/dl POC Glucose (other) 193 H (70-99) mg/dl Calcium 9.1 (8.6-10.3) mg/dl POC Ioniz Calcium Jim 0.98 L (1.12-1.32) mmol/l Troponin I High Sens 512.1 H* (0-20) pg/ml Lipase 11 (11-82) U/L 06/28/24 Range/Units 15:20 WBC (4.8-10.8) K/ul RBC (4.70-6.10) M/uL Hgb (14.0-18.0) g/dl POC Hgb (14.0-18.0) g/dl Hct (42.0-52.0) % POC Hct (42-52) % MCV (80.0-100.0) fL MCH (25.0-34.0) pg MCHC (32.0-36.0) g/dL RDW Std Deviation (36.4-46.3) fL RDW Coeff of Nasim (11.5-14.5) % Plt Count (130-400) K/uL MPV (9.4-12.4) fL Immature Gran % (Auto) % Neut % (Auto) % Lymph % (Auto) % Stevens % (Auto) % Eos % (Auto) % Baso % (Auto) % Neut # (Auto) (1.40-6.50) K/uL Lymph # (Auto) (1.20-3.40) K/uL Stevens # (Auto) (0.11-0.59) K/uL Eos # (Auto) (0.00-0.50) K/uL Baso # (Auto) (0.00-0.20) K/uL Immature Gran # (Auto) (0.01-0.20) K/uL PT 11.9 INR 1.1 APTT 23 PTT Ratio 0.9 POC Sodium (135-144) mmol/L Sodium (136-145) mmol/L POC Potassium (3.3-5.0) mmol/L Potassium 5.7 H POC Chloride (101-112) mmol/L Chloride (98-107) mmol/L Carbon Dioxide (21-32) mmol/L POC Total CO2 (24-31) mmol/L Anion Gap (3-11) POC Anion Gap (16-25) mmol/L POC BUN (7-18) mg/dl BUN (6-23) mg/dl Creatinine (0.6-1.4) mg/dl POC Creatinine (0.6-1.3) mg/dl Est Cr Clr Drug Dosing ml/min eGFR BUN/Creatinine Ratio (10-20) Glucose (70-99(Fasting)) mg/dl POC Glucose (70-99) mg/dl POC Glucose (other) (70-99) mg/dl Calcium (8.6-10.3) mg/dl POC Ioniz Calcium Jim (1.12-1.32) mmol/l Troponin I High Sens (0-20) pg/ml Lipase (11-82) U/L Imaging Data Attestation: I personally reviewed and interpreted this imaging study as follows: My Impression: Chest x-ray: Possible infiltrate right lung base Radiologist's Impression: Chest X-Ray 06/28/24 14:11 XR chest 1V portable CLINICAL HISTORY: Chest pain, nonspecific COMPARISON STUDY: 06/25/2024 FINDINGS: Stable right dialysis catheter. Stable mild cardiomegaly without pulmonary vascular congestion. Inspiration is shallow. There is increased stranding at the right base with partial obscuration of the right hemidiaphragm. No pneumothorax. IMPRESSION: Atelectasis versus early pneumonia right lung base. ACT 112: Negative or not required by law. Electronically signed by: Harish Camarillo M.D. 06/28/2024 2:21 PM ECG Data Attestation: I personally reviewed and interpreted this ECG as follows: Interpretation: Sinus rhythm with a rate of 100 with a bigeminy pattern. Wide QRS peak T waves. [facility] Narrative 1404: The patient was evaluated in room C12. A complete history and physical exam was performed Cardiac monitoring: An order was placed for continuous cardiac monitoring. The monitor shows a rate of 100 with sinus rhythm interpreted by me EKG shows wide QRS and peaked T waves. Patient will be treated with calcium gluconate 1 g. I-STAT will be conducted also. External medical records reviewed. Patient was discharged from the hospital 2 days ago after being admitted 3 days ago. Patient was seen by nephrology. His potassium was 6.3. Nephrology had initially recommended dialyzing the patient and the patient refused. Patient then stated he wanted to leave AMA. When he was given the option to leave AMA he then declined to leave AMA and then stated he wanted dialysis. Patient was last dialyzed on Tuesday. 1418: Patient's i-STAT potassium 6.3. Patient will be treated with albuterol 10 mg given his shortness of breath complaint and his hyperkalemia as well as EKG changes. Insulin and 1 amp of D50 also ordered for the patient. Lokelma ordered for the patient. 1500: Patient's chest x-ray shows possible pneumonia. Cefepime ordered for the patient. Patient's lab potassium is hemolyzed. It was most likely greater than 6 given his EKG changes. Albuterol insulin dextrose calcium gluconate and first dose of Lokelma given to the patient. Will redraw the patient's potassium to see if these interventions have helped his hyperkalemia. [facility]: Vital signs stable. Status post albuterol, IV insulin and dextrose, Lokelma, and calcium gluconate the patient's potassium is now 5.7. Discussed with Dr. Cohn on-call [facility] nephrology who knows the patient and he states he will dialyze him tomorrow. Impression & Plan Hyperkalemia Critical Care Time Critical Care Time: Yes Total Critical Care Time: 37 I have personally spent greater than 37 minutes of critical care time in the direct management of this patient. This includes bedside care, interpretation of diagnostic studies, and testing, discussion with consultants, patient, and family members, and other required patient management activities. This 37 minutes is in excess of all separately billable procedures. Discharge Plan Visit Data Chief Complaint: Shortness of Breath/Dyspnea Stated Complaint: SOB, PULSE WAS 40 ALL DAY ED Provider: Conner Patel Discharge Problem: Hyperkalemia Patient Disposition: Admitted As Inpatient Forms Stand Alone Forms: My [facility] Prescriptions Prescriptions: No Action oxycodone 5 mg tablet 10 mg PO HS PRN (Reason: Pain, Severe) atorvastatin 80 mg tablet 80 mg PO QAM clopidogrel 75 mg tablet 75 mg PO QAM Patient Comments: Pt pre-op instructions have hand written note "DO NOT STOP YOUR PLAVIX" Novolin R Regular U100 Insulin 100 unit/mL solution 30 unit subcut AC calcium acetate(phosphat bind) 667 mg tablet 667 mg PO AC gabapentin 300 mg capsule 300 mg PO DAILY PRN (Reason: Pain in feet) metoprolol succinate 25 mg tablet extended release 24 hr 12.5 mg PO QAM Hold Instructions: while blood pressures are on the lower end Referrals Referrals: Itz Niño DO [Primary Care Provider] -
[2024-06-28 16:24] LABS: Magnesium 2.2 mg/dl (1.7-2.4)
[2024-06-28 16:33] LABS: Troponin I High Sensitivity 458.9 pg/ml (0-20)
[2024-06-28] MEDS ORDERED: GLUCOSE 40% GEL 15 GM TUBE PO PRN (17:52)
[2024-06-28] MEDS ORDERED: PHARMACY GLYCEMIC MGMT CONSULT PRN (17:52)
[2024-06-28] MEDS ORDERED: GLUCAGON FOR INJ 1 MG VIAL SQ PRN (17:52)
[2024-06-28] MEDS ORDERED: MAGNESIUM HYDROXIDE SUSP 30 ML UDC PO PRN (17:52)
[2024-06-28] MEDS ORDERED: ACETAMINOPHEN 325 MG TAB PO PRN (17:52)
[2024-06-28] MEDS ORDERED: GLUCOSE 10 TAB/TUBE PO PRN (17:52)
[2024-06-28] MEDS ORDERED: POLYETHYLENE (MIRALAX) 17 GM PACK PO PRN (17:52)
[2024-06-28] MEDS ORDERED: GABAPENTIN 300 MG CAP PO PRN (17:52)
[2024-06-28] MEDS ORDERED: DEXTROSE 50% 50 ML SYRINGE IV PRN (17:52)
[2024-06-28] MEDS ORDERED: CARBOHYDRATES FOR HYPOGLYCEMIA PO PRN (17:52)
[2024-06-28] MEDS: LANTUS PER UNIT CHARGE SC ONE (18:49)
[2024-06-28] MEDS: CALCIUM ACETATE 667 MG CAP/TAB PO SCH (18:49)
[2024-06-28] MEDS: INSULIN ASPART PER UNIT CHARGE SC SCH (18:50)
[2024-06-28 20:23] LABS: BUN Creatinine Ratio 6.2 (10-20); Calcium 9.1 mg/dl (8.6-10.3); Creatinine Clr Calc Pharmacy 8.8 ml/min
[2024-06-28] MEDS ORDERED: HEPARIN SOD 5,000 UNIT/0.5 ML VIAL SQ SCH (21:00)
[2024-06-28] MEDS ORDERED: SODIUM ZIRCONIUM CYCLOSILICATE 10 GM PACKET PO SCH (21:00)
[2024-06-28] MEDS: HEPARIN SOD 5,000 UNIT/0.5 ML VIAL SQ SCH (21:11)
[2024-06-28] MEDS: METOPROLOL SUCC 25MG EXT REL TAB PO SCH (21:12)
[2024-06-28] MEDS ORDERED: Nursing to Pharmacy Communication SCH (21:30)
[2024-06-28] MEDS: SODIUM ZIRCONIUM CYCLOSILICATE 10 GM PACKET PO SCH (23:40)
--- OUTSIDE RECORDS SUMMARY | 2024-06-29 04:38 | External Medical Summary | Summary of Care ---
Author Name Unknown Organization [facility] Address [address] [facility] [place] [address] Phone [phone] Care Team Providers Care Parts Counterperson Name Role Phone Itz Niño DO Primary Care Provider Reason for Referral * Precert (Diagnostic Medical) (Within 10 days (routine)) - Authorized Specialty Diagnoses / Procedures Referred By Contac t Referred To Contact Cardiac Studies Diagnoses ESRD on dialysis (HCC) Hypotension, unspecified hypotension type Aortic valve stenosis, etiology of cardiac valve disease unspecified Procedures ECHO, COMPLETE (2D), TRANS-THORACIC Enma Nguyen MD [address] [place] [address] Phone: tel: fax: Referral ID Status Reason Start Date Expiration Date V isits Requested Visits Authorized [id number] Authorized Precert 06/09/[id number] Encounter Details Date Type Department Care Team (Late st Contact Info) Description 06/08/2024 Telephone Nephrology, [place] [address] [place] [address] Enma Nguyen MD [address] [place] [address] Allergies Active Allergy Reactions Criticality Noted Date Comments Lisinopril Cough High 12/25/2019 Severe dry cough Losartan Diarrhea Medium 12/25/2019 documented as of this encounter (statuses as of 06/28/2024) Medications B-D INS SYR U/F II SHORT [...] mouth in the morning. 90 Tablet 3 06/18/2024 12:29 PM EDT 11/16/19 24 Active Gabapentin 300 MG Oral Capsule (Neurontin)Indicat ions:Diabetic peripheral neuropathy (HCC) TAKE ONE CAPSULE BY MOUTH AT BEDTIME 90 Capsule 3 06/18/2024 6:10 PM EDT 11/30/19 24 025 Active Omnipod 5 [id number] Pods Gen 5 Use as directed. Use [...] goal of less than 7.0% ([facility]) Inject 30 Units under the skin three times a day with meals. 200 mL 3 06/08/2024 12:20 PM EST 06/07/19 25 Active Atorvastatin Calcium 80 MG Oral Tablet (Lipitor) TAKE ONE TABLET BY MOUTH DAILY 90 Tablet 3 06/08/2024 1:35 PM EST 06/08/19 25 026 Active documented as of this encounter (statuses as of 06/28/2024) Active Problems Problem Noted Date Diagnosed Date Acute hyperkalemia 01/30/2024 Acute hypoxemic respiratory failure 01/30/2024 Acute non-ST segment elevation myocardial infarc tion 01/30/2024 Anemia 01/30/2024 Bifascicular bundle branch block 01/30/2024 Chronic acquired lymphedema 01/30/2024 Hypoxia 01/30/2024 Neuropathy 01/30/2024 Peripheral edema 01/30/2024 Sepsis 01/30/2024 Venous stasis ulcer of left lower extremity 01/03 Kmycr-oh-trkgroz renal failure 01/30/2024 Vitreous hemorrhage, right 03/25/2022 [...] insulin 01/09/2020 Coronary artery disease invo lving [place] coronary artery of [place] heart with angina pectoris 12/28/2019 Controlled substance [...] as of this encounter (statuses as of 06/28/2024) Resolved Problems Problem Noted Date Diagnosed Date [...] (05/01/2009): Per HTN Taxonomy. Mixed dyslipidemia 08/29/2008 12/ 9 Overview (03/20/2009): Per Lipid Taxonomy. 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 (15 years old or [...] encounter Miscellaneous Notes * Telephone Encounter - Brendan Lemon, THALIA - 06/28/2024 9:02 AM EDT Poonam, this patient has an appt in two weeks, on July 12, this will be soonest I can get this patient to be seen thank you. * Telephone Encounter - Brendan Lemon OSA - 06/28/2024 9:00 AM EDT Please see message, patient is in need of a Nephro appt sooner. Thank you. * Telephone Encounter - Poonam Titus CRNP - 06/27/2024 4:06 PM EDT See below telephone encounter from nephrology. Can we see if there is a sooner available appointment with cardiology? * Telephone Encounter - Enma Nguyen MD - 06/27/2024 10:13 AM EDT Pt insisted on leaving hospital yesterday after dialysis for K 6.4; unable to remove fluid at hospital d/t hypotension. Cardiology was to see pt but he left before they could see him. I was uncomfortable sending him outon midodrine due to trigeminy/bigeminy on HD yesterday. He threatened repeatedly to leave AMA but ultimately team supported/arranged his d/c. Today he did not come to dialysis. He states he was told not to come to dialysis today b/c of tx yesterday which is not accurate since he had no Tuesday treatment/needs 3 days weekly tx. He has had nofluid removal since last Tuesday. family development extension specialist spoke w/ pt > he states he fell at home last evening and called neighbor to get him up and was SOB w/ this maneuvering. HR this am 47 (on pulseox?) and SBP 102. Not sob today at rest. Pt not obviously/floridly confused but some concerns from me and from team he's not processing information normally. family development extension specialist calling back now to recommend after d/w me to pt: -go to HD tomorrow in [place] ([facility] unit closed on ) or go back to [facility] ER for tx; will assess for tx on 06/29 at [facility] but if no interval HD before Tuesday, quite possible he will need reeval in ER Dr Niño/Cardiology FIELD RING ASSEMBLER >> -is a a case mgt or G@ Home candidate? -can we get him in to see cardiology sooner than 07/12? -does he need safety check or other intervention this week * Telephone Encounter - Enma Nguyen MD - 06/25/2024 10:23 AM EDT Contacted by dialysis unit today >> pt came to tx w/ BP 80-85/49-50 and HR on auscultation by2 different RNs in 30s. Pulse ox low 90s but drops to low 80s when pt talks. He c/o diffuse body aches, light headedness, dyspnea. Advised ER eval which he is currently refusing; states "I either get a tx or I go home; I'm not going to ER" Advised nurses to ask him to reconsider, to urge ER visit; if he cont to refuse, advised them to ask him to discuss this potentially life threatening decision with his son Has 07/05 appt for TTE, has appt to reest (last saw cardiology 06/2021) w/ cards 07/12 Dr Salinas ALONSO * Telephone Encounter - Enma Nguyen MD - 06/08/2024 10:10 AM EST Has lower BP more often sonia in AM >> has SBP 90s-100s in AM rarely w/ sx; noted on at home bpcuff w/ wrist monitor which historically per pt w/ very consistent readings and noted at HD as well. Recommended he re-est w/ cardiology last month d/t these issues and h/o mild in 2020 and LTFU since 06/2021. Has appt 07/12; can't do fast pass b/c needs to arrange transport at least 24 hrs ahead. Ongoing bp issues; not severe enough for ER eval but concerning. Will get TTE and ECG now non emergent and if results concerning will ask to move up appt. documented in this encounter Plan of Treatment Upcoming Encounters Date Type Department Care Team (Late st Contact Info) Description 07/03/2024 11:30 AM EDT Home Visit [facility] at [place], [facility] [address] [place] [address] Dalila Rich RN [address] [place] [address] 07/10/2024 1:00 PM EDT Home Visit [facility] at [facility] [address] [address] Rangel Dinh PA-C [address] [place] [address] 07/12/2024 10:00 AM EDT Office Visit Cardiology, [facility] [address] [phone] Poonam Titus CRNP [address] [place] [address] [place] [address] 07/12/2024 1:40 PM EDT Office Visit Family Practice [facility] [address] [address] Itz Niño DO [address] [address] 11/01/2024 9:00 AM EDT Office Visit Orthopaedics [facility] [address] [phone] David Ahmadi PA-C [address] [place] [phone] Scheduled Orders Name Type Priority Associated Diagnoses Orde r Schedule ECHO, COMPLETE (2D), TRANS-THORACIC Echocardiology Routine ESRD on dialysis (HCC) Hypotension, unspecified hypotension type Aortic valve stenosis, etiology of cardiac valve disease unspecified Expected: 06/09/2024, Expires: 07/09/2026 EKG EKG Routine Hypotension, unspecified hypotension type Expected: 06/09/2024 (Approximate), Expires: 07/09/2025 Health Maintenance Due Date Last Done Comments Fecal Occult Blood Test 09/25/1995 Sigmoidoscopy 09/25/1995 DTap/Tdap Vaccines (1 - Tdap) 02/03/2007 02/02/2007 Colonoscopy 09/21/2011 09/20/2008 Adult Wellness Visit 2016 Depression Monitoring 12/17/2022 12/17/2021 HbA1c 03/16/2024 09/15/2023, 04/04, 09/17/2021, Additional history exists Colorectal Cancer Screening 05/27/2024 COVID-19 Vaccine (7 - Moderna risk 2023- season) 2024 02/09/2024, 02/09/2023, 01/05/2022, Additional history exists Diabetic Foot Exam 08/22/2024 08/23/2023, 0 06/02/2016, 01/16/2014, Additional history exists Diabetic Eye Exam 05/22/2025 05/22/2024, , 04/21/2022, Additional history exists Cologuard 05/26/2027 05/26/2024, 04/05, [...] this encounter Medical Devices Implanted Type Area Precision Instrument And Tool Maker Device Identifier Shelf Expiration Date Model / Serial / Lot Lens 19.0 Mx60 - [id number] - [id number] Implanted:Qty: 1 on 11/02/2016 by Rob Padron MD at OR [facility] Right: Eye [employer] : SURGICAL 04/03/2019 MX60-19.0 / [id number] / [id number] documented as of this encounter Visit Diagnoses Diagnosis Hypotension, unspecified hypotension type- Primary ESRD on dialysis (HCC) End stage renal disease Aortic valve stenosis, etiology of cardiac valve disease unspecified documented in this encounter Advance Directives * [...] the patient have Health Care Power of Pbx Mechanic? Yes, not currently available * Full Code Date Activated Date Inactivated Comments 11/02/2016 12:13 PM 11/02/2016 6:23 PM This order re flects the patients wishes and were consensually agreed upon. Healthcare Agents on File Name Relationship Healthcare Agent [facility] p Communication Digna Grover Adult Child Health Care Power of Attorne y Care Teams Parts Counterperson Relationship Specialty Start Date End Date Itz Niño DO [address] [address] PCP - General Family Medicine 03/15/22 documented as of this encounter
--- OUTSIDE RECORDS SUMMARY | 2024-06-29 04:38 | External Medical Summary | Summary of Care ---
Author Name Unknown Organization [facility] Address [address] [facility] [place] [address] Phone [phone] Care Team Providers Care Crane Crew Supervisor Name Role Phone Itz Niño DO [...] Enma Nguyen MD [address] [place] [address] Phone: tel: fax: Referral ID Status Reason Start Date Expiration Date V isits Requested Visits Authorized [id number] Authorized Precert 06/09/[id number] Encounter Details Date Type Department Care Team (Late st Contact Info) Description 06/08/2024 Telephone Nephrology, Mesha [place] [address] [place] [address] Enma Nguyen MD [address] [place] [address] Allergies Active Allergy Reactions Criticality Noted Date [...] EDT 11/30/19 24 025 Active Omnipod 5 [id number] Pods Gen 5 Use as directed. 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 sonography technologist spoke w/ pt > he states he fell at home last evening and called neighbor to get him up and was SOB w/ this maneuvering. HR this am 47 (on pulseox?) and SBP 102. Not sob today at rest. Pt not obviously/floridly confused but some concerns from me and from team he's not processing information normally. sonography technologist calling back now to recommend after d/w me to pt: -go to HD tomorrow in [place] ([facility] unit closed on ) or go back to [facility] ER for tx; will assess for tx on 06/29 at [facility] but if no interval HD before Tuesday, quite possible he will need reeval in ER Dr Niño/Cardiology GLASS FRAME FITTER >> -is a a case mgt or [...] 11:30 AM EDT Home Visit [facility] at [place], [facility] [address] [place] [address] Dalila Rich RN [address] [place] [address] 07/10/2024 1:00 PM EDT Home Visit Ke[facility] at [facility] [address] [address] Rangel Dinh PA-C [address] [place] [address] 07/12/2024 10:00 AM EDT Office Visit Cardiology, [facility] [address] [phone] Poonam Titus CRNP [address] [place] [address] [place] [address] 07/12/2024 1:40 PM EDT Office Visit Family Practice [facility] [address] [address] Itz Niño DO [address] [address] 11/01/2024 9:00 AM EDT Office Visit Orthopaedics [facility] [address] [phone] David Ahmadi PA-C [address] [place] [...] this encounter Medical Devices Implanted Type Area Spinner Tender Device Identifier Shelf Expiration Date Model / Serial / Lot Lens 19.0 Mx60 - [id number] - [id number] Implanted:Qty: 1 on 11/02/2016 by Rob Padron MD at [facility] Right: Eye [employer] : SURGICAL 04/03/2019 MX60-19.0 / [id number] / [id number] documented as of this encounter Visit Diagnoses [...] the patient have Health Care Power of Interstate Bus Driver? Yes, not currently available * Full Code Date Activated Date Inactivated Comments 11/02/2016 12:13 PM 11/02/2016 6:23 PM This order re flects the patients wishes and were consensually agreed upon. Healthcare Agents on File Name Relationship Healthcare Agent [facility] p Communication Digna Grover Adult Child Health Care Power of Attorne y Care Teams Crane Crew Supervisor Relationship Specialty Start Date End Date Itz Niño DO [address] [address] PCP - General Family Medicine 03/15/22 documented as of this encounter
--- OUTSIDE RECORDS SUMMARY | 2024-06-29 04:38 | External Medical Summary | Summary of Care ---
Author Name Unknown Organization [facility] Address [address] [facility] [place] [address] Phone [phone] Care Team Providers Care Public Health Social Worker Name Role Phone Itz Niño DO [...] Enma Nguyen MD [address] [place] [address] Phone: tel: fax: Referral ID Status Reason Start Date Expiration Date V isits Requested Visits Authorized [id number] Authorized Precert 06/09/[id number] Encounter Details Date Type Department Care Team (Late st Contact Info) Description 06/08/2024 Telephone Nephrology, [place] [address] [place] [address] Enma Nguyen MD [address] [place] [address] Allergies Active Allergy Reactions Criticality Noted Date [...] EDT 11/30/19 24 025 Active Omnipod 5 EmuM0J2 Pods Gen 5 Use as directed. Use [...] of less than 7.0% ([facility]) Inject 30 Units under the [...] stasis ulcer of left lower extremity 01/03 Mkzlo-fj-aphzbfy renal failure 01/30/2024 Vitreous hemorrhage, right 03/25/2022 [...] type 2 diabetes mellitus 01/20/2021 History of [place] (myocardial infarction) 08/22/2020 Major depressive disorder, recurrent, mild 02/13 Cubital tunnel syndrome, right 02/14/2020 Unspecified inflammatory spondylopathy, cervical region 01/31/2020 Type 2 diabetes mellitus wit h hyperglycemia, with long-term current use of insulin 01/09/2020 Coronary artery disease invo lving [place] coronary artery of [place] heart with angina pectoris 12/28/2019 Controlled substance [...] 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 window shade estimator spoke w/ pt > he states he fell at home last evening and called neighbor to get him up and was SOB w/ this maneuvering. HR this am 47 (on pulseox?) and SBP 102. Not sob today at rest. Pt not obviously/floridly confused but some concerns from me and from team he's not processing information normally. window shade estimator calling back now to recommend after d/w me to pt: -go to HD tomorrow in [place] ([facility] unit closed on ) or go back to [facility] ER for tx; will assess for tx on 06/29 at [facility] but if no interval HD before Tuesday, quite possible he will need reeval in ER Dr Niño/Cardiology COOK SOUP >> -is a a case mgt or [...] 11:30 AM EDT Home Visit [facility]onne[facility] at [place], [facility] [address] [place] [address] Dalila Rich RN [address] [place] [address] 07/10/2024 1:00 PM EDT Home Visit [facility] at [facility] [address] [address] Rangel Dinh PA-C [address] [place] [address] 07/12/2024 10:00 AM EDT Office Visit Cardiology, [facility] [address] [phone] Poonam Titus CRNP [address] [place] [address] [place] [address] 07/12/2024 1:40 PM EDT Office Visit Family Practice [facility] [address] [address] Itz Niño DO [address] [address] 11/01/2024 9:00 AM EDT Office Visit Orthopaedics [facility] [address] [phone] David Ahmadi PA-C [address] [place] [...] this encounter Medical Devices Implanted Type Area Internal Security Manager Device Identifier Shelf Expiration Date Model / Serial / Lot Lens 19.0 Mx60 - [id number] - [id number] Implanted:Qty: 1 on 11/02/2016 by Rob Padron MD at OR [facility] Right: Eye [employer] : SURGICAL 04/03/2019 MX60-19.0 / [id number] / [id number] documented as of this encounter Visit Diagnoses [...] the patient have Health Care Power of Fire Suppression Captain? Yes, not currently available * Full Code Date Activated Date Inactivated Comments 11/02/2016 12:13 PM 11/02/2016 6:23 PM This order re flects the patients wishes and were consensually agreed upon. Healthcare Agents on File Name Relationship Healthcare Agent [facility] p Communication Digna Grover Adult Child Health Care Power of Attorne y Care Teams Public Health Social Worker Relationship Specialty Start Date End Date Itz Niño DO [address] [address] PCP - General Family Medicine 03/15/22 documented as of this encounter
--- OUTSIDE RECORDS SUMMARY | 2024-06-29 04:39 | External Medical Summary | Summary of Care ---
Author Name Unknown Organization [facility] Address [address] [place] [address] Phone [phone] Care Team Providers Care Drum Tester Name Role Phone [place] Itz Gaonamata Primary Care Provider Encounter Details Date Type Department Care Team (Late st Contact Info) Description 06/27/2024 Referral Triage Care Coordination and Integration [address] [place] [address] Amna Benitez, THALIA [address], [place] [phone] Allergies Active Allergy Reactions Criticality Noted Date Comments Lisinopril Cough High 12/25/2019 Severe dry cough Losartan Diarrhea Medium 12/25/2019 documented as of this encounter (statuses as of 06/27/2024) Medications B-D INS SYR U/F II SHORT [...] EDT 11/30/19 24 025 Active Omnipod 5 SorV9L5 Pods Gen 5 Use as directed. Use [...] hemoglobin A1c goal of less than 7.0% ([facility]) Use as directed with insulin [...] hemoglobin A1c goal of less than 7.0% ([facility]) Inject 30 Units under the skin three times a day with meals. 200 mL 3 06/08/2024 12:20 PM EST 06/07/19 25 Active Atorvastatin Calcium 80 MG Oral Tablet (Lipitor) TAKE ONE TABLET BY MOUTH DAILY 90 Tablet 3 06/08/2024 1:35 PM EST 06/08/19 25 026 Active documented as of this encounter (statuses as of 06/27/2024) Active Problems Problem Noted Date Diagnosed Date Acute hyperkalemia 01/30/2024 Acute hypoxemic respiratory failure 01/30/2024 Acute non-ST segment elevation myocardial infarc tion 01/30/2024 Anemia 01/30/2024 Bifascicular bundle branch block 01/30/2024 Chronic acquired lymphedema 01/30/2024 Hypoxia 01/30/2024 Neuropathy 01/30/2024 Peripheral edema 01/30/2024 Sepsis 01/30/2024 Venous stasis ulcer of left lower extremity 01/03 Oijsx-ej-mdoiyao renal failure 01/30/2024 Vitreous hemorrhage, right 03/25/2022 [...] type 2 diabetes mellitus 01/20/2021 History of [place] (myocardial infarction) 08/22/2020 Major depressive disorder, recurrent, mild 02/13 Cubital tunnel syndrome, right 02/14/2020 Unspecified inflammatory spondylopathy, cervical region 01/31/2020 Type 2 diabetes mellitus wit h hyperglycemia, with long-term current use of insulin 01/09/2020 Coronary artery disease invo lving [place] coronary artery of [place] heart with angina pectoris 12/28/2019 Controlled substance [...] as of this encounter (statuses as of 06/27/2024) Resolved Problems Problem Noted Date Diagnosed Date [...] as of this encounter (statuses as of 06/27/2024) Immunizations Name Administration Dates Next Due COVID-19 [...] 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 Not [...] Entry Date Author No 12/25/2019 10:28 AM ALEXIST Jeremy Houser RN documented in this encounter Plan of Treatment Upcoming Encounters Date Type Department Care Team (Late st Contact Info) Description 07/03/2024 11:30 AM EDT Home Visit [facility] [address] [place] [address] Dalila Rich RN [address] [facility] [place] [address] 07/05/2024 8:15 AM EDT Cardiac Studies Cardiac Studies, [facility] [address] [phone] 07/05/2024 10:00 AM EDT Nurse Only Ancillary [facility] [address] [facility] [place] [address] [facility] Nurse [facility] [place] [address] 07/10/2024 1:00 PM EDT [facility] Visit [facility] [place], [facility] [address] [place] [address] Rangel Dinh PA-C [address] [place] [address] 07/12/2024 10:00 AM EDT Office Visit Cardiology, [facility] [address] [place] [phone] Poonam Tiuts, STEPHIE [address] [place] [address] 07/12/2024 1:40 PM EDT Office Visit Family Practice [facility] [address] [place] [address] Itz Niño DO [address] [place] [address] 11/01/2024 9:00 AM EDT Office Visit Orthopaedics [facility] [address] [place] [phone] David Ahmadi PA-C [address] [place] [phone] Health Maintenance Due Date Last Done Comments Fecal Occult Blood Test 09/25/1995 Sigmoidoscopy 09/25/1995 DTap/Tdap Vaccines (1 - Tdap) 02/03/2007 02/02/2007 Colonoscopy 09/21/2011 09/20/2008 Adult Wellness Visit 2016 Depression Monitoring 12/17/2022 12/17/2021 HbA1c 03/16/2024 09/15/2023, 04/04, 09/17/2021, Additional history exists Colorectal Cancer Screening 05/27/2024 COVID-19 Vaccine (7 - Moderna risk ) 08/08/2024 02/09/2024, 02/09/2023, 01/05/2022, Additional history exists [...] this encounter Medical Devices Implanted Type Area Injection Molding Technician Device Identifier Shelf Expiration Date Model / Serial / Lot Lens 19.0 Mx60 - [id number] - [id number] Implanted:Qty: 1 on 11/02/2016 by Rob Padron MD at OR [facility] Right: Eye [employer]OM[employer] : SURGICAL 04/03/2019 MX60-19.0 / [id number] / [id number] documented as of this encounter Advance Directives [...] the patient have Health Care Power of Warp Doffer? Yes, not currently available * Full Code Date Activated Date Inactivated Comments 11/02/2016 12:13 PM 11/02/2016 6:23 PM This order re flects the patients wishes and were consensually agreed upon. Healthcare Agents on File Name Relationship Healthcare Agent Relationshi p Communication Digna Grover Adult Child Health Care Power of Attorne y Care Teams Drum Tester Relationship Specialty Start Date End Date Itz Niño DO [address] [address] PCP - General Family Medicine 03/15/22 documented as of this encounter
--- OUTSIDE RECORDS SUMMARY | 2024-06-29 04:39 | External Medical Summary | Summary of Care ---
Author Name Unknown Organization [facility] Address [address] [place] [address] Phone [phone] Care Team Providers Care Director Of Vendor Management Name Role Phone Itz Niño DO Primary Care Provider Reason for Visit * Reason Onset Date Comments Appointment 06/27/2024 Encounter Details Date Type Department Care Team (Late st Contact Info) Description 06/27/2024 Telephone [facility], [place] [address] [place] [address] Todd Lopez, THALIA [address] [place], [place] [phone] Appointment (//) Allergies Active Allergy Reactions Criticality Noted Date [...] EDT 11/30/19 24 025 Active Omnipod 5 [id number] Pods Gen 5 Use as directed. Use [...] hemoglobin A1c goal of less than 7.0% ([facility]) Use as directed with insulin [...] hemoglobin A1c goal of less than 7.0% ([facility]) Inject 30 Units under the [...] stasis ulcer of left lower extremity 01/03 [id number]-bb-iemarvc renal failure 01/30/2024 Vitreous hemorrhage, right 03/25/2022 [...] type 2 diabetes mellitus 01/20/2021 History of [place] (myocardial infarction) 08/22/2020 Major depressive disorder, recurrent, mild 02/13 Cubital tunnel syndrome, right 02/14/2020 Unspecified inflammatory spondylopathy, cervical region 01/31/2020 Type 2 diabetes mellitus wit h hyperglycemia, with long-term current use of insulin 01/09/2020 Coronary artery disease invo lving [place] coronary artery of [place] heart with angina pectoris 12/28/2019 Controlled substance [...] 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 Not on file [...] encounter Miscellaneous Notes * Telephone Encounter - Todd Lopez OSA - 06/27/2024 11:15 AM EDT Date Scheduled: 06/27 Time: 1115am In Person RNCM Special Instructions: enrollment appts scheduled - Liane Gallardo documented in this encounter Plan of Treatment Upcoming Encounters Date Type Department Care Team (Late st Contact Info) Description 07/03/2024 11:30 AM EDT Home Visit [facility] [address] [address] Dalila Rich RN [address] [place] [address] 07/05/2024 8:15 AM EDT Cardiac Studies Cardiac Studies, [facility] [address] [place] [phone] 07/05/2024 10:00 AM EDT Nurse Only Ancillary [facility] [address] [place] [address] [facility], Nurse Fam [facility] [address] [place] [address] 07/10/2024 1:00 PM EDT Home Visit [facility] [place], [facility] [address] [place] [address] Rangel Dinh PA-C [address] [place] [address] 07/12/2024 10:00 AM EDT Office Visit Cardiology, [facility] [address] [place] [phone] Poonam Titus CRNP [address] [place], [place] [address] [address] 07/12/2024 1:40 PM EDT Office Visit Family Practice [facility] [place] [address] Itz Niño DO [address] [place] [address] 11/01/2024 9:00 AM EDT Office Visit Orthopaedics [facility] [address] [place] [phone] David Ahmadi PA-C [address] [place] [phone] Health Maintenance Due Date Last Done Comments [...] this encounter Medical Devices Implanted Type Area Fitness Technician Device Identifier Shelf Expiration Date Model / Serial / Lot Lens 19.0 Mx60 - [id number] - [id number] Implanted:Qty: 1 on 11/02/2016 by Rob Padron MD at OR [facility] Right: Eye [employer] : SURGICAL 04/03/2019 MX60-19.0 / [id number] / [id number] documented as of this encounter Advance Directives [...] the patient have Health Care Power of Lining Marker? Yes, not currently available * Full Code Date Activated Date Inactivated Comments 11/02/2016 12:13 PM 11/02/2016 6:23 PM This order re flects the patients wishes and were consensually agreed upon. Healthcare Agents on File Name Relationship Healthcare Agent [facility] p Communication Digna Grover Adult Child Health Care Power of Attorne y Care Teams Director Of Vendor Management Relationship Specialty Start Date End Date Itz Niño DO [address] [address] PCP - General Family Medicine 03/15/22 documented as of this encounter
--- OUTSIDE RECORDS SUMMARY | 2024-06-29 04:39 | External Medical Summary | Summary of Care ---
Author Name Unknown Organization [facility] Address [address] [facility] [address] Phone [phone] Care Team Providers Care Precinct I Police Sergeant Name Role Phone Itz Niño DO Primary Care Provider Reason for Visit * Reason Onset Date Comments [facility]: Screening 06/27/2024 Encounter Details Date Type Department Care Team (Late st Contact Info) Description 06/27/2024 Telephone [facility], [facility] [address] [facility] [place] [address] Amna Mansfield, SENIOR IT RECRUITER [address] [facility] [place] [address] [facility]: Screening Allergies Active [...] EDT 11/30/19 24 025 Active Omnipod 5 [id number] Pods Gen 5 Use as directed. Use [...] hemoglobin A1c goal of less than 7.0% ([facility]) Use as directed with insulin [...] with diabetes mellitus due to underlying condition ([facility]) Take 2 Tablets by mouth at bedtime as needed for Pain, Severe. 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 [...] Telephone Encounter - Amna Mansfield LPN - 06/27/2024 10:51 AM EDT Jignesh Grover III was referred [...] Description 07/03/2024 11:30 AM EDT Home Visit [facility], [address] [place] [address] Dalila Rich RN [facility] [place] [address] 07/05/2024 8:15 AM EDT Cardiac Studies Cardiac Studies, [facility] [address] [place] [phone] 07/05/2024 10:00 AM EDT Nurse Only Ancillary [facility] [address] [facility] [place] [address] [facility], Nurse Fam [facility] [address] [facility] [place] [address] 07/10/2024 1:00 PM EDT [facility], [facility] [address] [place] [address] Rangel Dinh PA-C [address] [place] [address] 07/12/2024 10:00 AM EDT Office Visit Cardiology, [facility] [address] [place] [phone] Poonam Titus, STEPHIE [address] [facility] [address] 07/12/2024 1:40 PM EDT Office Visit Family Practice [facility] [address] [place] [address] Itz Niño DO [address] [place] [address] 11/01/2024 9:00 AM EDT Office Visit Orthopaedics [facility] [address] [phone] David Ahmadi PA-C [address] [phone] Health Maintenance Due Date Last Done [...] this encounter Medical Devices Implanted Type Area Chief Internal Auditor Device Identifier Shelf Expiration Date Model / Serial / Lot Lens 19.0 Mx60 - [id number] - [id number] Implanted:Qty: 1 on 11/02/2016 by Rob Padron MD at OR [facility] Right: Eye [employer] : SURGICAL 04/03/2019 MX60-19.0 / [id number] / [id number] documented as of this encounter Advance Directives [...] the patient have Health Care Power of Dev Manager? Yes, not currently available * Full Code Date Activated Date Inactivated Comments 11/02/2016 12:13 PM 11/02/2016 6:23 PM This order re flects the patients wishes and were consensually agreed upon. Healthcare Agents on File Name Relationship [facility] Digna Grover Adult Child Health Care Power of Attorne y Care Teams Prec[place] I Police Sergeant Relationship Specialty Start Date End Date Itz Niño DO [address] [address] PCP - General Family Medicine 03/15/22 documented as of this encounter
--- OUTSIDE RECORDS SUMMARY | 2024-06-29 04:39 | External Medical Summary | Summary of Care ---
Author Name Unknown Organization [facility] Address [address] [place] [address] Phone [phone] Care Team Providers Care Apparatus Lineman Name Role Phone Itz Niño DO Primary Care Provider Reason for Visit * Reason Onset Date Comments Appointment 06/27/2024 Encounter Details Date Type Department Care Team (Late st Contact Info) Description 06/27/2024 Telephone [facility], [place] [address] [place] [address] Todd Lopez, THALIA [address] [place], [place] [phone] Appointment (//) Allergies Active Allergy Reactions Criticality [...] EDT 11/30/19 24 025 Active Omnipod 5 [id number] Pods Gen 5 Use as directed. Use [...] goal of less than 7.0% ([facility]) Use as directed with insulin [...] goal of less than 7.0% ([facility]) Inject 30 Units under the [...] stasis ulcer of left lower extremity 01/03 Elqcv-oc-devuvfm renal failure 01/30/2024 Vitreous hemorrhage, right 03/25/2022 [...] type 2 diabetes mellitus 01/20/2021 History of [place] (myocardial infarction) 08/22/2020 Major depressive disorder, recurrent, mild 02/13 Cubital tunnel syndrome, right 02/14/2020 Unspecified inflammatory spondylopathy, cervical region 01/31/2020 Type 2 diabetes mellitus wit h hyperglycemia, with long-term current use of insulin 01/09/2020 Coronary artery disease invo lving [place] coronary artery of [place] heart with angina pectoris 12/28/2019 Controlled substance [...] Description 07/03/2024 11:30 AM EDT Home Visit [facility] [address] [address] Dalila Rich RN [address] [place] [address] 07/05/2024 8:15 AM EDT Cardiac Studies Cardiac Studies, [facility] [address] [place] [phone] 07/05/2024 10:00 AM EDT Nurse Only Ancillary [facility] [address] [place] [address] [facility], Nurse Fam [facility] [address] [place] [address] 07/10/2024 1:00 PM EDT [facility] [place] [address] [place] [address] Rangel Dinh PA-C [address] [place] [address] 07/12/2024 10:00 AM EDT Office Visit Cardiology, [facility] [address] [place] [phone] Poonam Titus CRNP [address] [place], [place] [address] [address] 07/12/2024 1:40 PM EDT Office Visit Family Practice [facility] [place] [address] Itz Niño DO [address] [place] [address] 11/01/2024 9:00 AM EDT Office Visit Orthopaedics [facility] [address] [place] [phone] aDvid Ahmadi PA-C [address] [place] [phone] Health Maintenance Due Date Last Done Comments [...] this encounter Medical Devices Implanted Type Area Folder Inspector Device Identifier Shelf Expiration Date Model / Serial / Lot Lens 19.0 Mx60 - [id number] - [id number] Implanted:Qty: 1 on 11/02/2016 by Rob Padron MD at [facility] Right: Eye [employer] : SURGICAL 04/03/2019 MX60-19.0 / [id number] / [id number] documented as of this encounter Advance Directives [...] the patient have Health Care Power of Manager Credit? Yes, not currently available * Full Code Date Activated Date Inactivated Comments 11/02/2016 12:13 PM 11/02/2016 6:23 PM This order re flects the patients wishes and were consensually agreed upon. Healthcare Agents on File Name Relationship Healthcare Agent [facility] p Communication Digna Grover Adult Child Health Care Power of Attorne y Care Teams Apparatus Lineman Relationship Specialty Start Date End Date Itz Niño DO [address] [address] PCP - General Family Medicine 03/15/22 documented as of this encounter
[2024-06-29 05:33] LABS: Hematocrit (blood only) 32.1 % (42.0-52.0); Hemoglobin 10.9 g/dl (14.0-18.0); Mean Corpuscular Hemoglobin 32.6 pg (25.0-34.0); Mean Corpuscular Volume 96.1 fL (80.0-100.0); Mean Platelet Volume 11.4 fL (9.4-12.4); Platelet Count 120 K/uL (130-400); RDW Coefficient of Variation 14.3 % (11.5-14.5); RDW Standard Deviation 50.1 fL (36.4-46.3); Red Blood Count 3.34 M/uL (4.70-6.10); White Blood Count 7.09 K/ul (4.8-10.8)
[2024-06-29 06:32] LABS: Albumin Globulin Ratio 1.2 (0.9-2); Albumin Level 3.8 gm/dl (3.4-5.0); BUN Creatinine Ratio 6.5 (10-20); Bilirubin,Total 0.8 mg/dl (0.2-1.0); Calcium 8.9 mg/dl (8.6-10.3); Creatinine Clr Calc Pharmacy 8.4 ml/min; Globulin 3.2 gm/dl (2.5-4.0); Magnesium 2.3 mg/dl (1.7-2.4); Potassium 5.5 mmol/L (3.5-5.1); Troponin I High Sensitivity 548.3 pg/ml (0-20)
[2024-06-29] MEDS: ATORVASTATIN 40 MG TAB PO SCH (08:20)
[2024-06-29] MEDS: MIDODRINE HCL 10 MG TAB PO STA (08:20)
[2024-06-29] MEDS: CLOPIDOGREL BISULFATE 75 MG TAB PO SCH (08:21)
[2024-06-29] MEDS: LANTUS PER UNIT CHARGE SC SCH (08:21)
--- NOTE | 2024-06-29 08:37 | Cardiology Consultation ---
Date of Consultation June 29, 2024 Assessment & Plan (1) Ischemic cardiomyopathy: (2) Ventricular bigeminy seen on hatchery manager: (3) Elevated troponin: (4) Hyperkalemia: (5) ESRD (end stage renal disease) on dialysis: (6) Hypotension: Plan Assessment: 73 year old medically complex male presents with increased weakness and shortness of breath. missed HD treatment. Given history of CAD and elevated troponins, cardiology service has been requested for evaluation. Plan: 1. Hypertensive heart disease 2. CAD 3. Ischemic cardiomyopathy 4. Elevated troponin -patient with known coronary disease as outlined with prior high risk PCI. Concern for likely ischemia in the setting of ESRD, and other significant comorbidities. -Troponin elevation in the setting of volume overload, ESRD and prior infarct. Will obtain resting echocardiogram to assess overall structure and function. This is to be done upon returning from HD treatment today -Continue Atorvastatin, Toprol xl, and Plavix 5. Ventricular bigeminy -Noted on EKG And telemetry. -Important to complete Hemodialysis and normalize electrolyte imbalance in the setting of increased ventricular ectopy and a short MA interval. -monitor closely. -Continue Toprol xl 12.5mg PO BID at this time as blood pressures are borderline. -Echocardiogram 6. ESRD: - per management of nephrology, appreciate all recommendations. 7. Hypotension: -patient with complex history and currently only on low dose Toprol xl for history of HF and increased PVC burden -May use Midodrine if necessary for BP support. patient received a one time dose this AM by nephrology Will continue to follow. Case has been discussed with Dr. Toussaint. Further recommendations regarding plan of care as per his assessment. I spent a total of 40 minutes on the date of service in preparation, delivery, documentation of the care provided to the patient excluding any time spent in the performance of separately billed services. STEPHIE Zheng [facility] Cardiology [facility] Supervising Physician Co-Signing Physician Notes Attending attestation: Case reviewed with the advanced practitioner. I have personally performed a history and physical examination on the patient. I have reviewed the advanced practitioner's documentation on the date of service referenced in note, and I agree with, and take responsibility for the plan of care. Subjective: 73-year-old male with a history of end-stage renal disease who receives hemodialysis Tuesday, Wednesdays, and Fridays at [facility] under the care of Dr Nguyen of [facility]ph[facility]. He states that he has been receiving dialysis for about 2.5 years. The patient has a history of complex multivessel coronary heart disease with previous cardiac catheterization performed 01/07/2020 at [facility] revealing severe left main and three-vessel coronary heart disease. Patient underwent IVUS optimization guided PCI of the distal left main trunk circumflex and LAD at that time having presented with a non-ST segment elevation myocardial infarction. Patient tells me that at the time of that event he had chest pressure and arm discomfort. He has not had the symptoms recently. He has noted an increase in shortness of breath. He denies subjective palpitations, but starting a week ago, he had been found to have a low heart rate at dialysis and upon hospital evaluation had been found to have sinus rhythm with frequent premature ventricular contractions in a pattern of ventricular bigeminy. Has been felt that his heart rate was under counted at his recent dialysis sessions. He has a longstanding history of treatment with metoprolol succinate and the time of his [place]/PCI of in 2019 the metoprolol succinate dose was 50 mg daily. Over time this had been reduced to 25 mg daily, and per patient description this was reduced further to 12.5 mg daily a few months ago due to concerns of low blood pressure. Exam: Cardiovascular: Regular rhythm on exam, distant heart sounds, clear lung sounds, 2+ bilateral lower extremity edema Data: EKG performed 06/29/2024 at 5:51 AM revealed sinus rhythm at 71 bpm with long first-degree AV block, MA interval 242 ms, frequent PVCs. Although the morphology of the QRS complexes suggest possible ST segment elevation in the inferior leads as well as the anterior leads, in comparison to previous tracings, I think this is just the morphology of the QRS complexes in the setting of his chronic right bundle branch block. Impression/ Plan: Patient underwent hemodialysis this morning to address ongoing issues with hyperkalemia and volume overload. Patient with complex issues that fluid removal has been limited due to relative hypotension. This is also limited his ability to use an effective dose of metoprolol to correct PVC suppression. At present we will continue the low-dose metoprolol succinate 12.5 mg twice daily in the setting of hyperkalemia and concerns of QRS prolongation and long first-degree AV block. While hospitalized, I think would be reasonable to proceed with daily midodrine therapy rather than waiting to treat just before dialysis in an effort to keep his systolic blood pressure above 100 mmHg persistently. Echocardiogram to be completed and will be reviewed. I spent a total of 20 minutes coordinating, documenting, and providing care for this patient excluding time spent in the performance of separately billed services or time spent by another provider. Jignesh Toussaint DO History of Present Illness Reason for Consultation: Frequent PVC and elevated troponin Requesting Physician: Keenan gonzalez Attending Physician: Jessee Dupont MD History of Present Illness HPI: Patient is a 73 year old medically complex male with PMHx significant for CAD s/p high risk PCI with JOAO to Cx/prox LAD/Mid-LAD with known chronic total occlusion of the RCA, combined systolic/diastolic HF, Ischemic cardiomyopathy, bifascicular bundle branch block on prior EKG, ESRD on HD M/W/, prior CVA, HTNn, HLD, IDDM type II, diabetic retinopathy of right eye, right eye vitreous hemorrhage, neuropathy, anemia of chronic disease, chronic lymphedema, venous stasis ulcers that presented to the ER with shortness of breath, and generalized weakness. Of note, patient had a recent hospitalization at [facility] 06/25-06/26/24 for hyperkalemic initially refusing HD. failed to attend his OP scheduled HD treatment yesterday and has a history of medical noncompliance. Upon speaking with the patient, he states that he was concerned that he was filling up with fluid and that if OP dialysis hooked him up finding a heart rate in the 40's (due to PVCs) that they would send him to the hospital. Patient denies any chest pain, pressure or palpitations, no pre-syncope or syncope. Endorses shortness of breath, but does not feel as though he is in distress. Admits his legs are a "bit more swollen" then usual. Patient has not followed with OP cardiology in a few years. EKG SR with 1st degree AVB with PVC's. right BBB (known), prior cited inferior and anteroseptal infarct. refer to EKGs also from recent admission. High sensitivity troponin elevated with flat trend. 512.1/458.9/430.2/548.3 Chest X -ray: IMPRESSION: Atelectasis versus early pneumonia right lung base. He is to have an echocardiogram today upon returning from his HD treatment. Allergies Allergy/AdvReac Type Severity Reaction Status Date / Time losartan Allergy Diarrhea Unverified 06/25/24 14:33 lisinopril AdvReac Severe Cough Verified 06/25/24 14:33 Home Medications Medication Instructions Recorded Confirmed Type atorvastatin 80 mg tablet 80 mg PO QAM 06/17/21 06/28/24 History clopidogrel 75 mg tablet 75 mg PO QAM 06/17/21 06/28/24 History oxycodone 5 mg tablet 10 mg PO HS PRN Pain, Severe 12/01/21 06/28/24 History insulin regular human 100 unit/mL 30 unit subcut AC 12/31/21 06/28/24 History injection solution (Novolin R Regular U-100 Insulin) calcium acetate(phosphat bind) 667 667 mg PO AC 06/25/24 06/28/24 History mg tablet gabapentin 300 mg capsule 300 mg PO DAILY PRN Pain in feet 06/25/24 06/28/24 History metoprolol succinate 25 mg 12.5 mg PO QAM 06/25/24 06/28/24 History tablet,extended release 24 hr Patient History Medical History Chronic venous insufficiency of lower extremity Adjustment disorder with depressed mood Anemia CHF (congestive heart failure) Morbid obesity with BMI of 40.0-44.9, adult Suicidal ideation CAD (coronary artery disease) Ischemic cardiomyopathy EF 35-40% Cerebrovascular disease stroke 2013 Bifascicular bundle branch block Acute non-ST segment elevation myocardial infarction Kidney stone Surgical History Stented coronary artery JOAO placement to the Circumflex, Proximal LAD and mid LAD with a HEM MARKER of his RCA History of tonsillectomy H/O knee surgery S/P surgical manipulation of ankle joint Social History Smoking Status: Never smoker Second Hand Exposure: No; Do You Dip or Chew Tobacco: No; Hx Alcohol Use: No Hx Substance Use: No Preferred Language: Wolof Communication Ability: Effective Visual Impairment: No Limitations Hearing Ability: Normal City Recorder Required: No Beliefs That Will Affect Care: None marital status: Current Living Situation: Alone Current Living Situation Comment: alone in apartment building current occupational status: retired current occupation: Retired How many Children do You have: 3 Other Information That Helps Us Care for You: No Feels Safe at Home: Yes Safety Concerns: Feels Safe At This Time Diet: diabetic Diet Comment: Dialysis, caffeine: No Assistive Devices: Scooter/Electric Scooter and Wheelchair Review of Systems Review of Systems: All systems reviewed & are unremarkable except as noted in HPI & below Physical Exam Constitutional: + ill appearing and + morbidly obese; no acute distress Neck: normal visual inspection and trachea midline Respiratory: normal respiratory effort; no respiratory distress and no labored breathing Auscultation: + diminished lung sounds (diminished throughout); no crackles, no rales, no rhonchi and no wheezes Cardiovascular: Rate/Rhythm: regular rate and regular rhythm Heart Sounds: normal S1 and normal S2; no murmur Vessels: dorsalis pedis pulses present; no JVD Extremities: + edema (+2 BLE) Skin: + erythema (bilateral lower extremities ) Psychiatric: A+Ox3, euthymic affect Results & Data Vital Signs (Past 12 Hours) Vital Signs Temp Pulse Pulse Resp BP Pulse Ox O2 Del Method 06/29/24 08:00 Room Air 06/29/24 08:00 78 06/29/24 07:51 36.5 C 57 L 16 87/54 L 92 Room Air 06/29/24 02:59 36.8 C 54 L 18 104/68 95 Room Air 06/29/24 00:21 78 06/28/24 22:48 36.9 C 78 18 100/67 96 Room Air Laboratory Results Cardiac Enzymes 06/28/24 06/28/24 06/28/24 Range/Units 14:14 15:20 19:39 AST (13-39) U/L Troponin I High Sens 512.1 H* 458.9 H* 430.2 H* (0-20) pg/ml 06/29/24 Range/Units 05:03 AST 13 (13-39) U/L Troponin I High Sens 548.3 H* D (0-20) pg/ml Coagulation 06/28/24 06/28/24 Range/Units 14:14 15:20 PT Cancelled 11.9 APTT Cancelled 23 CBC 06/28/24 06/29/24 Range/Units 14:14 05:03 WBC 8.57 7.09 (4.8-10.8) K/ul RBC 3.69 L 3.34 L (4.70-6.10) M/uL Hgb 12.2 L 10.9 L (14.0-18.0) g/dl Hct 35.5 L 32.1 L (42.0-52.0) % Plt Count 145 120 L (130-400) K/uL Neut # (Auto) 5.73 (1.40-6.50) K/uL Lymph # (Auto) 1.45 (1.20-3.40) K/uL Frio # (Auto) 0.94 H (0.11-0.59) K/uL Eos # (Auto) 0.37 (0.00-0.50) K/uL Baso # (Auto) 0.05 (0.00-0.20) K/uL Comprehensive Metabolic Panel 06/28/24 06/28/24 06/28/24 Range/Units 14:14 15:20 19:39 Sodium 132 L 132 L (136-145) mmol/L Potassium TNP 5.7 H 6.0 H Chloride 93 L 94 L (98-107) mmol/L Carbon Dioxide 26 25 (21-32) mmol/L BUN 63 H 65 H (6-23) mg/dl Creatinine 10.21 H* 10.47 H* (0.6-1.4) mg/dl Glucose 195 H 205 H (70-99(Fasting)) mg/dl Calcium 9.1 9.1 (8.6-10.3) mg/dl AST (13-39) U/L ALT (7-52) U/L Alkaline Phosphatase (34-104) U/L Total Protein (6.0-8.3) gm/dl Albumin (3.4-5.0) gm/dl 06/29/24 Range/Units 05:03 Sodium 133 L (136-145) mmol/L Potassium 5.5 H Chloride 95 L (98-107) mmol/L Carbon Dioxide 26 (21-32) mmol/L BUN 71 H (6-23) mg/dl Creatinine 10.94 H* D (0.6-1.4) mg/dl Glucose 145 H (70-99(Fasting)) mg/dl Calcium 8.9 (8.6-10.3) mg/dl AST 13 (13-39) U/L ALT 24 (7-52) U/L Alkaline Phosphatase 113 H (34-104) U/L Total Protein 7.0 (6.0-8.3) gm/dl Albumin 3.8 (3.4-5.0) gm/dl Intake and Output 06/28/24 06/29/24 06/29/24 22:59 06:59 14:59 Intake Total 60 / 240 120 / 240 Balance 60 / 240 120 / 240 Intake: Oral 60 / 180 120 / 180 Other: Weight 136.3 kg Weight Measurement Method Standing Scale (6) Hypotension Hypotension type: other hypotension type Qualified Code(s): I95.89 - Other hypotension
--- NOTE | 2024-06-29 09:49 | Pharmacy Report ---
Pharmacy Glycemic Short Note 2 - Date of Service June 29, 2024 - Glycemic Short BSG Results (Last 24 hours): 06/28/24 06/28/24 06/28/24 14:13 14:14 15:09 Glucose 195 H POC Glucose 250 H POC Glucose (other) 193 H 06/28/24 06/28/24 06/28/24 18:23 19:39 20:29 Glucose 205 H POC Glucose 173 H 203 H POC Glucose (other) 06/29/24 06/29/24 05:03 07:29 Glucose 145 H POC Glucose 156 H POC Glucose (other) OUTPATIENT ANTIDIABETIC REGIMEN: * Novolin R 30 units with meals A1c = 8.7% value unreliable due to hemodialysis ASSESSMENT: * Jignesh is a 73 yo T2DM with complex PMH. ESRD on HD. Presented to ED due to SOB and generalized weakness. * Patient takes bolus insulin only at home - regular insulin with meals. Started on basal + bolus regime on admission. * Glycemic stressors appear to be stable at this time. * Fasting BSG of 156 mg/dL is above goal. Will order Lantus dose per BSG scale until basal needs are better known. * Continue Novolog based on weight/stress 2. PLAN FOR INPATIENT GLYCEMIC CONTROL: * Hold outpatient oral diabetes medications * Basal insulin * Lantus 12-15-20 units SQ BID - see eMAR for BSG scale (20 units BID would be similar to home insulin use split 50/50 basal/bolus) * Bolus insulin * NovoLog per scale ACHS or Q6hrs while NPO * Goal Range: Low 110 mg/dL - High 160 mg/dL * Correction Factor: 15 mg/dL/unit * Nutritional / Prandial insulin per carb ratio of 1 unit per 6 grams CHO consumed
--- NOTE | 2024-06-29 10:45 | Nephrology Consultation ---
Date of Consultation June 29, 2024 Assessment & Plan (1) ESRD (end stage renal disease) on dialysis: Today is high regular day and will do for 4 hrs and aim for 3 kilo. CVC is fine. BP is already low. Did give midodrine 10 mg. Cards agrees with that. Doubt will get that. K is still somewhat high. he does not make urine now. Did suggest that this makes Diet adherence even more critical for high K. will do 2K bath. He may very well need Dialysis again to get him close to his edw. (2) Acute hyperkalemia: near Anuric ESRD patient with DM--makes high K very persistent. Needs much more aggressive diet control. (3) Ventricular bigeminy seen on vp global: Cards note reviewed. Plan for ECHO today (4) Hypotension: BP is low and has e/o fluid overload with Symptoms. getting ECHO. Did give Midodrine 10 mg. Plan time spent 62 mins in total. History of Present Illness Reason for Consultation: ESRD on Dialysis with SOB and Hyperkalemia Attending Physician: Jessee Dupont MD History of Present Illness 73/M with ESRD on HD--MWF at [facility] through Dr Nguyen ( Has CVC) , insulin-dependent DM type II, proliferative diabetic retinopathy of right eye without macular edema associated with DM type II, right vitreous hemorrhage, diabetic neuropathy leading to unsteady gait, HLD, HTN, cerebrovascular disease, history of prior CVA in 2013, CAD s/p high-risk PCI with JOAO placement to the c ircumflex/proximal LAD/mid LAD with a DERMATOPATHOLOGIST of the RCA, chronic combined systolic and diastolic congestive heart failure, ischemic cardiomyopathy, history of NSTEMI, bifascicular bundle branch block, morbid obesity, venous stasis dermatitis of bilateral lower extremities, chronic acquired lymphedema, anemia and depression who presented to the ED with complaint of SOB and generalized weakness. CXr ?? Pneumonia. BP low. frequent PVC's Patient recently admitted from 06/25/2024 to 06/26/2024. Found to be hyperkalemic at that time with potassium of 6.3 and initially refused HD but then later agre ed and did have Dialysis with Midodrine and No UF done. His current wt is about 4 kilo higher than EDW. BP has been low. he gets frequent PVC and Dialysis machine and Digital BP machine gets HR lower than on telemetry. Last full dialysis session with fluid removal was on 06/22/2024 (total volume removed unknown). Usual HD schedule is M/W/F - gets done at [facility]. Was to have routine HD session yesterday however did not attend this. getting Dialysis now with plan for 3 kilo UF goal.Did give midodrine 10 mg. cards agrees with that. Plan for ECHO. ROs--12 stems reviewed and negative Physical Exam Physical Exam: General: awake, alert, NAD. HEENT: Moist oral mucosa Neck: supple,No JVD Heart: regular No murmur Lungs: CTA bilaterally Abdomen: soft, +BS. obese Extremities: chronic stasis changes bilateral LE Neurologic: Ox3, no confusion or dysarthria, moving all extremities, no focal deficits. Allergies Allergy/AdvReac Type Severity Reaction Status Date / Time losartan Allergy Diarrhea Unverified 06/25/24 14:33 lisinopril AdvReac Severe Cough Verified 06/25/24 14:33 Home Medications Medication Instructions Recorded Confirmed Type atorvastatin 80 mg tablet 80 mg PO QAM 06/17/21 06/28/24 History clopidogrel 75 mg tablet 75 mg PO QAM 06/17/21 06/28/24 History oxycodone 5 mg tablet 10 mg PO HS PRN Pain, Severe 12/01/21 06/28/24 History insulin regular human 100 unit/mL 30 unit subcut AC 12/31/21 06/28/24 History injection solution (Novolin R Regular U-100 Insulin) calcium acetate(phosphat bind) 667 667 mg PO AC 06/25/24 06/28/24 History mg tablet gabapentin 300 mg capsule 300 mg PO DAILY PRN Pain in feet 06/25/24 06/28/24 History metoprolol succinate 25 mg 12.5 mg PO QAM 06/25/24 06/28/24 History tablet,extended release 24 hr Patient History Medical History Chronic venous insufficiency of lower extremity Adjustment disorder with depressed mood Anemia CHF (congestive heart failure) Morbid obesity with BMI of 40.0-44.9, adult Suicidal ideation CAD (coronary artery disease) Ischemic cardiomyopathy EF 35-40% Cerebrovascular disease stroke 2013 Bifascicular bundle branch block Acute non-ST segment elevation myocardial infarction Kidney stone Surgical History Stented coronary artery JOAO placement to the Circumflex, Proximal LAD and mid LAD with a DERMATOPATHOLOGIST of his RCA History of tonsillectomy H/O knee surgery S/P surgical manipulation of ankle joint Social History Smoking Status: Never smoker Second Hand Exposure: No; Do You Dip or Chew Tobacco: No; Hx Alcohol Use: No Hx Substance Use: No Preferred Language: Urdu Communication Ability: Effective Visual Impairment: No Limitations Hearing Ability: Normal Mold Shifter Required: No Beliefs That Will Affect Care: None marital status: Current Living Situation: Alone Current Living Situation Comment: alone in apartment building current occupational status: retired current occupation: Retired How many Children do You have: 3 Other Information That Helps Us Care for You: No Feels Safe at Home: Yes Safety Concerns: Feels Safe At This Time Diet: diabetic Diet Comment: Dialysis, caffeine: No Assistive Devices: Scooter/Electric Scooter and Wheelchair Results & Data Vital Signs (Past 12 Hours) Vital Signs Temp Pulse Pulse Resp BP BP Pulse Ox 06/29/24 10:30 81 84/60 L 06/29/24 10:00 64 97/43 L 06/29/24 09:30 81 90/54 L 06/29/24 09:30 81 90/54 L 06/29/24 09:12 55 L 114/76 06/29/24 09:08 36.5 C 06/29/24 08:00 06/29/24 08:00 78 06/29/24 07:51 36.5 C 57 L 16 87/54 L 92 06/29/24 02:59 36.8 C 54 L 18 104/68 95 06/29/24 00:21 78 06/28/24 22:48 36.9 C 78 18 100/67 96 O2 Del Method 06/29/24 10:30 06/29/24 10:00 06/29/24 09:30 06/29/24 09:30 06/29/24 09:12 06/29/24 09:08 06/29/24 08:00 Room Air 06/29/24 08:00 06/29/24 07:51 Room Air 06/29/24 02:59 Room Air 06/29/24 00:21 06/28/24 22:48 Room Air Laboratory Results CBC and renal panel. (4) Hypotension Hypotension type: other hypotension type Qualified Code(s): I95.89 - Other hypotension
--- NOTE | 2024-06-29 14:06 | Electrocardiogram Report ---
Test Reason : Blood Pressure : */* mmHG Vent. Rate : 101 BPM Atrial Rate : 101 BPM P-R Int : 340 ms QRS Dur : 160 ms QT Int : 352 ms P-R-T Axes : 39 267 113 degrees QTcB Int : 456 ms Sinus tachycardia with 1st degree A-V block with frequent Premature ventricular complexes in a patter n of bigeminy Right bundle branch block Inferior infarct , age undetermined Anteroseptal infarct , age undetermined T wave abnormality, consider lateral ischemia Abnormal ECG When compared with ECG of 26-Jun-2024 06:04, Sinus rhythm has replaced Wide QRS rhythm Confirmed by Addi Ansari ([id number]) on 06/29/2024 2:05:56 PM Referred By: Confirmed By: Addi Ansari
--- NOTE | 2024-06-29 14:20 | Electrocardiogram Report ---
Test Reason : Blood Pressure : */* mmHG Vent. Rate : 71 BPM Atrial Rate : 71 BPM P-R Int : 342 ms QRS Dur : 148 ms QT Int : 440 ms P-R-T Axes : 37 -85 162 degrees QTcB Int : 478 ms Sinus rhythm with 1st degree A-V block with occasional Premature ventricular complexes Left axis deviation Right bundle branch block Inferior infarct (cited on or before 23-Dec-2019) Anteroseptal infarct (cited on or before 25-Jun-2024) T wave abnormality, consider lateral ischemia Abnormal ECG When compared with ECG of 28-Jun-2024 14:00, (unconfirmed) No significant change Confirmed by Addi Ansari ([id number]) on 06/29/2024 2:20:23 PM Referred By: REFERRED SELF Confirmed By: Addi Ansari
--- NOTE | 2024-06-29 17:05 | Communication Note ---
Date of Service: June 29, 2024 Summary of TTE performed 06/29/24: There is severe global hypokinesis of the left ventricle. Left ventricular systolic function is severely reduced. Left Ventricular Ejection Fraction = 15-20%. The right ventricle is mildly dilated. The right ventricular systolic function is mildly reduced. The aortic valve is tricuspid. The leaflet thickness if normal. There is no aortic stenosis, and no significant insufficiency. Aortic valve is severely calcified. At least moderate aortic valve stenosis is present with peak CW velocity of 3.14 m/s, mean gradient 25 mmHg, dimensionless index 0.34 however findings suggest low flow low gradient severe aortic stenosis. There is no pericardial effusion. There is mild tricuspid regurgitation. The pulmonary artery systolic pressure is estimated to be 42 mmHg (mildly elevated). Compared to the previous study dated 12/02/2021, significant changes have occurred with left ventricular ejection fraction of 45-50% at that time and mild aortic valve stenosis noted at that time. I discussed the results of the patient's echocardiogram with him. The decline in his ejection fraction may very well explain his recent issues with dyspnea on exertion, and difficulty tolerating hemodialysis. I would speculate that his previously placed stents may have in-stent restenosis. I also have concerns that he may have severe aortic valve stenosis. Future considerations include high risk diagnostic cardiac catheterization and possible repeat percutaneous coronary intervention at [facility]. As well as workup for aortic stenosis. Patient to remain in the hospital here and will reach out to cardiology at tertiary center over the weekend. Patient agreeable to the plan. He asked me to update his son, Balta who lives in [place], phone #[phone]. I was unable to connect with him by phone but I left a brief voicemail message stating that I will try again. Questions answered to the patient's satisfaction. Case discussed with Dr Dupont of the hospitalist service for the purpose of ongoing coordination of care.
[2024-06-29] MEDS: MIDODRINE HCL 2.5 MG TAB PO SCH (17:14)
--- NOTE | 2024-06-29 17:16 | Hospitalist Progress Note ---
Date of Service June 29, 2024 Assessment & Plan (1) Acute hyperkalemia: Plan: -improving with dialysis -2/2 missing dialysis Plan: -appreciate nephrology recs -may need dialysis session tomorrow (2) ESRD (end stage renal disease) on dialysis: Plan: -difficulty with managing fluid status -likely type 2 cardiorenal syndrome in setting of significant coronary disease, echo with EF of 15-20% with low flow severe aortic stenosis -concern that dialysis noncompliance has significantly worsened heart failure, while ESRD initially likely 2/2 coronary syndrome Plan: -see above -appreciate cardiology recs -appreciate nephro recs, likely another dialysis session tomorrow -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[employer] prognosis, patient has low functional status at baseline with multiorgan dysfunction, will be high risk for procedures, DNRDNI at this time (3) Heart failure, systolic, with acute decompensation: Plan: -echo today shows EF of 15-20% with severe low flow aortic stenosis -likely part of cardiorenal syndrome Plan: -appreciate cardiology assistance -will likely need transfer for ischemic eval and workup, and consideration for fixing aortic stenosis -likely will need ICD pending GOC discussion in future (4) Elevated troponin: Plan: -unlikely to be ACS, likely acute on chronic type 2 [place] -echo reveals severe aortic stenosis low flow and new EF 15-20% (5) Ventricular bigeminy seen on radiation monitor: Plan: -Appreciate cardiology evaluation as per above. -EKG with sinus tachycardia with first-degree AV block with frequent PVCs in a pattern of bigeminy, RBBB, peaked T waves and widened QRS. (6) Insulin dependent type 2 diabetes mellitus: Plan: -SSI regimen while inpatient. BSG checks ACHS. Plan I spent a total of 55 minutes in direct patient care, including [id number] time with the patient and/or family, reviewing medical records, ordering and reviewing diagnostic tests, and coordinating care with other healthcare providers. This time includes: history taking, physical examination, medical decision making, counseling, ECG interpretation, imaging interpretation, lab interpretation, orders, and education, excluding time spent in the performance of separately billed services. Admission and Anticipated Discharge Date Admission Date: June 28, 2024 Subjective Patient seen and examined at bedside. Patient states he wants to go home as soon as possible. Of note, echocardiogram very concerning for worsening coronary syndrome and severe aortic stenosis. Patient states he is agreeable to staying for further workup. Denies symptoms at this time other than back pain. Review of Systems Review of Systems: CONSTITUTIONAL: Patient denies fevers, chills, sweats and weight changes. EYES: Patient denies any visual symptoms. EARS, NOSE, AND THROAT: No difficulties with hearing. No symptoms of rhinitis or sore throat. CARDIOVASCULAR: Patient denies chest pains, palpitations, orthopnea and paroxysmal nocturnal dyspnea. RESPIRATORY: No dyspnea on exertion, no wheezing or cough. GI: No nausea, vomiting, diarrhea, constipation, abdominal pain, hematochezia or melena. : No urinary hesitancy or dribbling. No nocturia or urinary frequency. No abnormal urethral discharge. MUSCULOSKELETAL: back pain NEUROLOGIC: No chronic headaches, no seizures. Patient denies numbness, tingling or weakness. PSYCHIATRIC: Patient denies problems with mood disturbance. No problems with anxiety. ENDOCRINE: No excessive urination or excessive thirst. DERMATOLOGIC: Patient denies any rashes or skin changes. Physical Exam Physical Exam: Gen: A&O 3 NAD, large body habitus HEENT: NCAT, EOMI, not icteric. External ears normal. No rhinorrhea. Moist mucous membranes. Neck: Supple, full range of motion, no observable masses, No meningeal sign. Lungs: No Respiratory distress. CV: RRR, no edema. Abdomen: Soft, nondistended, No rebound tenderness. MSK: No joint swelling, no redness. Skin: No rashes, petechiae, lesions. Normal color per patient. Neuro: Normal Gait, Grossly intact. Psych: Appropriate for situation. Results & Data Results & Data Vital Signs (Past 12 Hours) Vital Signs Temp Pulse Pulse Resp BP BP Pulse Ox 06/29/24 15:47 36.6 C 86 18 94/61 L 92 06/29/24 13:46 36.5 C 82 18 92/58 L 95 06/29/24 13:37 06/29/24 13:25 36.6 C 91/62 L 06/29/24 13:00 81 99/58 L 06/29/24 12:30 80 85/49 L 06/29/24 12:00 80 94/64 L 06/29/24 11:30 79 103/61 06/29/24 11:00 82 86/57 L 06/29/24 10:30 81 84/60 L 06/29/24 10:00 64 97/43 L 06/29/24 09:30 81 90/54 L 06/29/24 09:30 81 90/54 L 06/29/24 09:12 55 L 114/76 06/29/24 09:08 36.5 C 06/29/24 08:00 06/29/24 08:00 78 06/29/24 07:51 36.5 C 57 L 16 87/54 L 92 O2 Del Method 06/29/24 15:47 Room Air 06/29/24 13:46 Room Air 06/29/24 13:37 Room Air 06/29/24 13:25 06/29/24 13:00 06/29/24 12:30 06/29/24 12:00 06/29/24 11:30 06/29/24 11:00 06/29/24 10:30 06/29/24 10:00 06/29/24 09:30 06/29/24 09:30 06/29/24 09:12 06/29/24 09:08 06/29/24 08:00 Room Air 06/29/24 08:00 06/29/24 07:51 Room Air Laboratory Results -personally reviewed, improved K post dialysis and medical management, troponin continues to downtrend Medications Administered Atorvastatin Calcium (Atorvastatin 40 Mg Tab) 80 mg PO QAM [facility] Stop: 07/29/24 08:59 Last Admin: 06/29/24 08:20 Dose: 80 mg Documented By: GPF Calcium Acetate (Calcium Acetate 667 Mg Cap/Tab) 667 mg PO AC [facility] Stop: 07/28/24 17:59 Last Admin: 06/29/24 12:14 Dose: Not Given Documented By: Admin: 06/29/24 08:20 Dose: 667 mg Documented By: Admin: 06/28/24 18:49 Dose: 667 mg Documented By: CAROLIN Clopidogrel Bisulfate (Clopidogrel Bisulfate 75 Mg Tab) 75 mg PO QAM [facility] Stop: 07/29/24 08:59 Last Admin: 06/29/24 08:21 Dose: 75 mg Documented By: GPF Heparin Sodium (Porcine) (Heparin Sod 5,000 Unit/0.5 Ml Vial) 7,500 units SQ Q8 [facility] Stop: 07/28/24 20:29 Last Admin: 06/29/24 13:06 Dose: Not Given Documented By: Admin: 06/29/24 08:22 Dose: Not Given Documented By: GPCm Admin: 06/28/24 21:11 Dose: 7,500 units Documented By: ADINA Insulin Aspart (Insulin Aspart Per Unit Charge) 0 units SC ACHS [facility] Stop: 07/28/24 17:51 Last Admin: 06/29/24 14:12 Dose: 6 units Documented By: MARISA Co-signed By: CIARRA Admin: 06/29/24 08:21 Dose: 8 units Documented By: MARISA Co-signed By: CIARRA Admin: 06/28/24 21:14 Dose: 3 units Documented By: ADINA Co-signed By: RADHA Admin: 06/28/24 18:50 Dose: 3 units Documented By: CAROLIN Co-signed By: ADINA Insulin Glargine (Lantus Per Unit Charge) 0 units SC BID [facility]; Protocol Stop: 07/29/24 08:59 Last Admin: 06/29/24 08:21 Dose: 15 units Documented By: MARISA Co-signed By: CIARRA Metoprolol Succinate (Metoprolol Succ 25mg Ext Rel Tab) 12.5 mg PO BID [facility] Stop: 07/28/24 20:59 Last Admin: 06/29/24 08:22 Dose: Not Given Documented By: Admin: 06/28/24 21:12 Dose: 12.5 mg Documented By: ADINA Sodium Zirconium Cyclosilicate (Sodium Zirconium Cyclosilicate 10 Gm Packet) 10 gm PO TID@1100,1500,2300 [facility] Stop: 06/30/24 15:01 Last Admin: 06/29/24 15:23 Dose: 10 gm Documented By: Admin: 06/29/24 12:14 Dose: Not Given Documented By: GPCm Admin: 06/28/24 23:40 Dose: 10 gm Documented By: ADINA
[2024-06-30] MEDS ORDERED: SODIUM CHLORIDE 0.9% 1,000 ML IV PRN (08:10)
--- NOTE | 2024-06-30 08:29 | Cardiology Progress Note ---
Date of Service June 30, 2024 Assessment & Plan (1) Ischemic cardiomyopathy: (2) Ventricular bigeminy seen on night monitor: (3) Elevated troponin: (4) Hyperkalemia: (5) ESRD (end stage renal disease) on dialysis: (6) Hypotension: Plan Assessment: 73 year old medically complex male presents with increased weakness and shortness of breath. missed HD treatment. Given history of CAD and elevated troponins, cardiology service has been requested for evaluation. Plan: 1. Hypertensive heart disease 2. CAD 3. Ischemic cardiomyopathy 4. Elevated troponin -patient with known coronary disease as outlined with prior high risk PCI. Concern for likely ischemia in the setting of ESRD, and other significant comorbidities. -Troponin elevation in the setting of volume overload, ESRD and prior infarct. Will obtain resting echocardiogram to assess overall structure and function. This is to be done upon returning from HD treatment today -Continue Atorvastatin, Toprol xl, and Plavix 5. Ventricular bigeminy -Noted on EKG And telemetry. -Important to complete Hemodialysis and normalize electrolyte imbalance in the setting of increased ventricular ectopy and a short [place] interval. -monitor closely. -Continue Toprol xl 12.5mg PO BID at this time as blood pressures are borderline. -Echocardiogram 6. ESRD: - per management of nephrology, appreciate all recommendations. 7. Hypotension: -patient with complex history and currently only on low dose Toprol xl for history of HF and increased PVC burden -May use Midodrine if necessary for BP support. patient received a one time dose this AM by nephrology 06/30/2024: -patient's condition remains guarded. He verbalizes and understanding that he has a "really sick heart" -Continues with modest volume overload, currently on HD treatment. BP stable. -Dr. Toussaint had an at length discussion with patient with regards to his echocardiogram results, his prior cardiac history, multiple comorbidities and current symptoms. patient states that he would like to go home, but is willing to sit and talk with Dr. Toussaint about the plan of care. patient does verbalize an understanding that if he would choose to go home on his own account that he is at very high risk of having a sudden cardiac event including sudden cardiac . -Echocardiogram completed yesterday shows a severely reduced LVEF of 15-20%, severe global hypokinesis of the LV, Severe calcification of the aortic valve with at lease moderate stenosis; however findings suggest low flow, low gradient severe . No pericardial effusion, mild TR and mildly elevated pulmonary pressures. -Plan of care Goals discussion was held between patient and primary team, refer to note. -Patient is to continue Toprol xl 12.5mg PO BID, repeat EKG in AM given concerns or Prolonged QT interval, hyperkalemia and long 1st degree AVB. -Continue Plavix and Atorvastatin as part of GDMT -Continue Midodrine as part of recommendation for BP support. Will continue to follow. Case has been discussed with Dr. Toussaint. Further recommendations regarding plan of care as per his assessment. I spent a total of 40 minutes on the date of service in preparation, delivery, documentation of the care provided to the patient excluding any time spent in the performance of separately billed services. STEPHIE [facility] Admission and Anticipated Discharge Date Admission Date: June 28, 2024 Supervising Physician Co-Signing Physician Notes Attending attestation: Case reviewed with the advanced practitioner. I have personally performed a history and physical examination on the patient. I have reviewed the advanced practitioner's documentation on the date of service referenced in note, and I agree with, and take responsibility for the plan of care. I had a discussion with the patient at the bedside for over an hour from 5:30 PM until 6:37 PM. The patient's son, Balta, was on speaker phone. He lives in the [place] area. We once again reviewed his recent symptoms and the echocardiogram findings of severe left ventricular systolic dysfunction. He has removed his telemetry. Earlier today, sinus rhythm with first-degree AV block and PVCs observed but he is not on telemetry now. He underwent another dialysis treatment today having been pretreated with midodrine and 3 kg were successfully removed and his blood pressure was adequate to allow for hemodialysis and fluid removal. He denies resting shortness of breath or angina. Impression: Recent shortness of breath with exertion Heart failure with reduced ejection fraction, likely due to ischemic heart disease with history of complex coronary mention including bifurcating left main, LAD, circumflex stents placed in 2019. Underlying conduction system disease with long first-degree AV block, right bundle branch block, and frequent PVCs Discussion/recommendations: -As stated yesterday, I have high suspicion that he is had in-stent restenosis -Transfer to tertiary center for repeat high risk cardiac catheterization recommended and discussed. Patient is still debating whether he would want to have the procedure and he is debating his quality of life. He would really like to go home and have outpatient dialysis on Tuesday, but as noted, there have been issues with him being able to tolerate dialysis due to hypotension and PVCs and therefore fluid has not been able to removed adequately. -Both institution as well as a [facility] have been very busy, and I acknowledged that after I arranged transfer, he may have to wait for an unknown amount of time until a bed is available, but I still think that this is in his best interest to remain an inpatient for the procedure. -We discussed that proceeding with an outpatient cardiac catheterization is a possibility, but that scheduling such a procedure would be that he would likely have to wait longer, and we would have to arrange this around his dialysis with regards to fluid management. -The patient and his son's questions were answered to their satisfaction. He is going to think about things but he told me that at present he is leaning toward going home AGAINST MEDICAL ADVICE. -Continue atorvastatin, clopidogrel, metoprolol succinate 12.5 mg twice daily, midodrine I spent a total of 70 minutes coordinating, documenting, and providing care for this patient excluding time spent in the performance of separately billed services or time spent by another provider. Jignesh Toussaint DO Subjective 06/30/2024: Patient seen and examined in follow up today. Feeling fair. He is currently having a hemodialysis treatment. Denies chest pain, pressure or palpitations. Endorses "slight" shortness of breath, but is in no acute distress. Patient is tearful in affect. Labs, vitals, diagnostics, telemetry and documentation reviewed. Refused AM Labs. Telemetry reviewed showing SR with 1st degree AVB, PVC's rate 50-60bpm [place] interval is 312ms Review of Systems Review of Systems: All systems reviewed & are unremarkable except as noted in HPI & below Physical Exam Constitutional: + ill appearing and + morbidly obese; no acute distress Neck: normal visual inspection and trachea midline Respiratory: normal respiratory effort; no respiratory distress and no labored breathing Auscultation: + diminished lung sounds (diminished throughout); no crackles, no rales, no rhonchi and no wheezes Cardiovascular: Rate/Rhythm: regular rate and regular rhythm Heart Sounds: normal S1, normal S2 and + murmur (+2/6 systolic ) Vessels: dorsalis pedis pulses present; no JVD Extremities: + edema (+2 BLE) Skin: + erythema (bilateral lower extremities ) Psychiatric: A+Ox3, euthymic affect Results & Data Vital Signs (Past 12 Hours) Vital Signs Temp Pulse Pulse Resp BP Pulse Ox O2 Del Method 06/30/24 03:16 36.8 C 71 18 92/58 L 93 Room Air 06/29/24 23:44 72 06/29/24 23:06 36.6 C 78 16 94/61 L 92 Room Air 06/29/24 22:49 Room Air 06/29/24 22:05 78 94/61 L 92 Room Air Laboratory Results Cardiac Enzymes 06/29/24 06/30/24 Range/Units 16:02 09:20 AST 17 (13-39) U/L Troponin I High Sens 398.4 H* (0-20) pg/ml CBC 06/30/24 Range/Units 09:20 WBC 7.93 (4.8-10.8) K/ul RBC 3.39 L (4.70-6.10) M/uL Hgb 11.0 L (14.0-18.0) g/dl Hct 32.8 L (42.0-52.0) % Plt Count 128 L (130-400) K/uL Comprehensive Metabolic Panel 06/30/24 Range/Units 09:20 Sodium 134 L (136-145) mmol/L Potassium 4.5 (3.5-5.1) mmol/L Chloride 97 L (98-107) mmol/L Carbon Dioxide 26 (21-32) mmol/L BUN 49 H D (6-23) mg/dl Creatinine 7.88 H* D (0.6-1.4) mg/dl Glucose 153 H (70-99(Fasting)) mg/dl Calcium 8.5 L (8.6-10.3) mg/dl AST 17 (13-39) U/L ALT 24 (7-52) U/L Alkaline Phosphatase 127 H (34-104) U/L Total Protein 7.0 (6.0-8.3) gm/dl Albumin 3.8 (3.4-5.0) gm/dl Intake and Output 06/30/24 06/30/24 06/30/24 06:59 14:59 22:59 Intake Total 120 / 840 240 / 240 Output Total 0 / 500 Balance 120 / 340 240 / 240 Intake: Oral 120 / 840 240 / 240 Output: Urine 0 / 500 Other: Hemodialysis Ultrafiltration 3,000 Amount Weight 136.3 kg Weight Measurement Method Standing Scale Patient Weight 07/01/24 06:59 Weight 136.3 kg (6) Hypotension Hypotension type: other hypotension type Qualified Code(s): I95.89 - Other hypotension
[2024-06-30] MEDS: MIDODRINE HCL 2.5 MG TAB PO STA (08:41)
[2024-06-30 09:48] LABS: Hematocrit (blood only) 32.8 % (42.0-52.0); Mean Corpuscular Hemoglobin 32.4 pg (25.0-34.0); Mean Corpuscular Hgb Conc 33.5 g/dL (32.0-36.0); Mean Corpuscular Volume 96.8 fL (80.0-100.0); Mean Platelet Volume 11.8 fL (9.4-12.4); Platelet Count 128 K/uL (130-400); RDW Coefficient of Variation 14.4 % (11.5-14.5); RDW Standard Deviation 50.2 fL (36.4-46.3); Red Blood Count 3.39 M/uL (4.70-6.10); White Blood Count 7.93 K/ul (4.8-10.8)
[2024-06-30 10:04] LABS: Albumin Globulin Ratio 1.2 (0.9-2); Albumin Level 3.8 gm/dl (3.4-5.0); BUN Creatinine Ratio 6.2 (10-20); Bilirubin,Total 0.8 mg/dl (0.2-1.0); Calcium 8.5 mg/dl (8.6-10.3); Creatinine Clr Calc Pharmacy 11.6 ml/min; Globulin 3.2 gm/dl (2.5-4.0); Phosphorus 5.6 mg/dl (2.5-4.9); Potassium 4.5 mmol/L (3.5-5.1)
[2024-06-30] MEDS: HEPARIN SOD (PORCINE) 1000 UNIT/ML IV ONE (10:25)
[2024-06-30] MEDS: HEPARIN SOD (PORCINE) 1000 UNIT/ML IV SCH (10:25)
--- NOTE | 2024-06-30 11:45 | Electrocardiogram Report ---
Test Reason : Blood Pressure : */* mmHG Vent. Rate : 85 BPM Atrial Rate : 85 BPM P-R Int : 312 ms QRS Dur : 150 ms QT Int : 360 ms P-R-T Axes : 10 258 135 degrees QTcB Int : 428 ms Sinus rhythm with 1st degree A-V block with occasional Premature ventricular complexes Right superior axis deviation Right bundle branch block Inferior infarct (cited on or before 23-Dec-2019) Abnormal ECG When compared with ECG of 29-Jun-2024 05:51, No significant change was found Confirmed by Coty Tsang ([id number]) on 06/30/2024 11:44:46 AM Referred By: REFERRED SELF Confirmed By: Coty Tsang
--- NOTE | 2024-06-30 13:20 | Hospitalist Progress Note ---
Date of Service June 30, 2024 Assessment & Plan (1) Acute hyperkalemia: Plan: -improving with dialysis -2/2 missing dialysis -improved after dialysis (2) ESRD (end stage renal disease) on dialysis: Plan: -difficulty with managing fluid status -likely type 2 cardiorenal syndrome in setting of significant coronary disease, echo with EF of 15-20% with low flow severe aortic stenosis -concern that dialysis noncompliance has significantly worsened heart failure, while ESRD initially likely 2/2 coronary syndrome Plan: -see above -appreciate cardiology recs -appreciate nephro recs, likely another dialysis session tomorrow -guarded medium and retirement prognosis, patient has low functional status at baseline with multiorgan dysfunction, will be high risk for procedures, DNRDNI at this time, discussed goals and values with patient see above, he would like to consider cardiology interventions, but is also considering comfort focused care given he wants to have a reasonable quality of life (3) Heart failure, systolic, with acute decompensation: Plan: -echo today shows EF of 15-20% with severe low flow aortic stenosis -likely part of cardiorenal syndrome Plan: -appreciate cardiology assistance -will likely need transfer for ischemic eval and workup, and consideration for fixing aortic stenosis -likely will need ICD pending GOC discussion in future (4) Elevated troponin: Plan: -unlikely to be ACS, likely acute on chronic type 2 MN -echo reveals severe aortic stenosis low flow and new EF 15-20% (5) Ventricular bigeminy seen on principal quality engineer: Plan: -Appreciate cardiology evaluation as per above. -EKG with sinus tachycardia with first-degree AV block with frequent PVCs in a pattern of bigeminy, RBBB, peaked T waves and widened QRS. (6) Insulin dependent type 2 diabetes mellitus: Plan: -SSI regimen while inpatient. BSG checks ACHS. Plan I spent a total of 50 minutes in direct patient care, including [id number] time with the patient and/or family, reviewing medical records, ordering and reviewing diagnostic tests, and coordinating care with other healthcare providers. This time includes: history taking, physical examination, medical decision making, counseling, ECG interpretation, imaging interpretation, lab interpretation, orders, and education, excluding time spent in the performance of separately billed services. I spent a total of 30 minutes providing advanced care planning to the patient and/or family, including [id number]-jp-[id number] time discussing the patient's health status, prognosis, and treatment options. This time includes specific activities such as: discussing advance directives, goals of care, prognostication, and end-of-life planning. Admission and Anticipated Discharge Date Admission Date: June 28, 2024 Subjective Patient seen and examined at bedside. Patient doing okay today, stating but he wants to go home after dialysis. Discussed goals and values with patient see advance care planning discussion below. Advanced Care Plannin minutes discussing goals and values with patient. Started off Meeting by discussing how the night went and how dialysis is going. He states he really wants to go home today. When asked about his goals, he states he would like to have a reasonable quality of life not too much lower than the 1 he has right now, and would be willing to do procedures if he would not have a worse quality of life than he has currently. He states that he would not want to live if his quality of life was worse than current, as he already struggles to do many of his activities of daily living. He states he is willing to discuss possible interventions with the cardiology team and understand more about the risks and benefits the interventions would offer. He states that if the interventions would not have a reasonable chance of returning him to a regular quality of life, or has significant risk, he would prefer not to do them. He states that he does not do the cardiology procedure, he is thinking about stopping dialysis. He understands that stopping dialysis would lead to likely within 1 to 2 weeks. He states he would just prefer to focus on his comfort. He states family is very important to him. He states another thing is really important to him is being able to play cards weekly with his friends. He states if he is not able to do that anymore, then he would likely want to transition to comfort focused care. However, he wants to make decisions after he has had time to process information plan provided by the cardiology team. Review of Systems Review of Systems: CONSTITUTIONAL: Patient denies fevers, chills, sweats and weight changes. EYES: Patient denies any visual symptoms. EARS, NOSE, AND THROAT: No difficulties with hearing. No symptoms of rhinitis or sore throat. CARDIOVASCULAR: Patient denies chest pains, palpitations, orthopnea and paroxysmal nocturnal dyspnea. RESPIRATORY: No dyspnea on exertion, no wheezing or cough. GI: No nausea, vomiting, diarrhea, constipation, abdominal pain, hematochezia or melena. : No urinary hesitancy or dribbling. No nocturia or urinary frequency. No abnormal urethral discharge. MUSCULOSKELETAL: back pain NEUROLOGIC: No chronic headaches, no seizures. Patient denies numbness, tingling or weakness. PSYCHIATRIC: Patient denies problems with mood disturbance. No problems with anxiety. ENDOCRINE: No excessive urination or excessive thirst. DERMATOLOGIC: Patient denies any rashes or skin changes. Physical Exam Physical Exam: Gen: A&O 3 NAD, large body habitus HEENT: NCAT, EOMI, not icteric. External ears normal. No rhinorrhea. Moist mucous membranes. Neck: Supple, full range of motion, no observable masses, No meningeal sign. Lungs: No Respiratory distress. CV: RRR, no edema. Abdomen: Soft, nondistended, No rebound tenderness. MSK: No joint swelling, no redness. Skin: No rashes, petechiae, lesions. Normal color per patient. Neuro: Normal Gait, Grossly intact. Psych: Appropriate for situation. Results & Data Results & Data Vital Signs (Past 12 Hours) Vital Signs Temp Pulse Pulse Pulse Resp BP BP 06/30/24 13:00 81 117/71 06/30/24 12:30 85 108/54 L 06/30/24 12:00 80 114/59 L 06/30/24 11:30 79 108/65 06/30/24 11:00 80 101/62 06/30/24 10:30 86 93/47 L 06/30/24 10:00 81 126/79 06/30/24 09:30 80 127/76 06/30/24 09:16 78 132/51 L 06/30/24 09:11 36.5 C 62 06/30/24 08:04 36.3 C L 71 18 104/67 06/30/24 03:16 36.8 C 71 18 92/58 L Pulse Ox O2 Del Method 06/30/24 13:00 06/30/24 12:30 06/30/24 12:00 06/30/24 11:30 06/30/24 11:00 06/30/24 10:30 06/30/24 10:00 06/30/24 09:30 06/30/24 09:16 06/30/24 09:11 06/30/24 08:04 93 Room Air 06/30/24 03:16 93 Room Air Laboratory Results -personally reviewed, improved potassium consistent with dialysis and medical management of potassium Medications Administered Atorvastatin Calcium (Atorvastatin 40 Mg Tab) 80 mg PO QAM [facility] Stop: 07/29/24 08:59 Last Admin: 06/30/24 08:41 Dose: 80 mg Documented By: Admin: 06/29/24 08:20 Dose: 80 mg Documented By: GPF Calcium Acetate (Calcium Acetate 667 Mg Cap/Tab) 667 mg PO AC [facility] Stop: 07/28/24 17:59 Last Admin: 06/30/24 08:42 Dose: 667 mg Documented By: Admin: 06/29/24 17:14 Dose: Not Given Documented By: Admin: 06/29/24 12:14 Dose: Not Given Documented By: Admin: 06/29/24 08:20 Dose: 667 mg Documented By: Admin: 06/28/24 18:49 Dose: 667 mg Documented By: CAROLIN Clopidogrel Bisulfate (Clopidogrel Bisulfate 75 Mg Tab) [facility] [place] Stop: 07/29/24 08:59 Last Admin: 06/30/24 08:41 Dose: 75 mg Documented By: Admin: 06/29/24 08:21 Dose: 75 mg Documented By: MARISA Heparin Sodium (Porcine) (Heparin Sod 5,000 Unit/0.5 Ml Vial) 7,500 units SQ Q8 [facility] Stop: 07/28/24 20:29 Last Admin: 06/30/24 07:04 Dose: Not Given Documented By: Admin: 06/29/24 22:29 Dose: Not Given Documented By: Admin: 06/29/24 13:06 Dose: Not Given Documented By: Admin: 06/29/24 08:22 Dose: Not Given Documented By: Admin: 06/28/24 21:11 Dose: 7,500 units Documented By: ADINA Insulin Aspart (Insulin Aspart Per Unit Charge) 0 units SC ACHS [facility] Stop: 07/28/24 17:51 Last Admin: 06/30/24 11:43 Dose: Not Given Documented By: Admin: 06/30/24 08:42 Dose: 8 units Documented By: BRADLEY Co-signed By: EMILE Admin: 06/29/24 21:59 Dose: Not Given Documented By: Admin: 06/29/24 17:14 Dose: 2 units Documented By: MARISA Co-signed By: CIARRA Admin: 06/29/24 14:12 Dose: 6 units Documented By: MARISA Co-signed By: CIARRA Admin: 06/29/24 08:21 Dose: 8 units Documented By: GPF Co-signed By: CIARRA Admin: 06/28/24 21:14 Dose: 3 units Documented By: ADINA Co-signed By: RADHA Admin: 06/28/24 18:50 Dose: 3 units Documented By: CAROLIN Co-signed By: ADINA Insulin Glargine (Lantus Per Unit Charge) 0 units SC BID JAYA; Protocol Stop: 07/29/24 08:59 Last Admin: 06/30/24 08:42 Dose: 12 units Documented By: BRADLEY Co-signed By: EMILE Admin: 06/29/24 22:26 Dose: 15 units Documented By: ADINA Co-signed By: JOSÉ Admin: 06/29/24 08:21 Dose: 15 units Documented By: GPF Co-signed By: CIARRA Metoprolol Succinate (Metoprolol Succ 25mg Ext Rel Tab) 12.5 mg PO BID [facility] Stop: 07/28/24 20:59 Last Admin: 06/30/24 08:43 Dose: Not Given Documented By: Admin: 06/29/24 22:06 Dose: Not Given Documented By: Admin: 06/29/24 08:22 Dose: Not Given Documented By: Admin: 06/28/24 21:12 Dose: 12.5 mg Documented By: ADINA Midodrine (Midodrine Hcl 2.5 Mg Tab) 2.5 mg PO TID@0800,1200,1700 [facility] Stop: 07/29/24 16:59 Last Admin: 06/30/24 08:41 Dose: 2.5 mg Documented By: Admin: 06/29/24 17:14 Dose: 2.5 mg Documented By: GPF Sodium Zirconium Cyclosilicate (Sodium Zirconium Cyclosilicate 10 Gm Packet) 10 gm PO TID@1100,1500,2300 [facility] Last Admin: 06/29/24 22:38 Dose: 10 gm Documented By: Admin: 06/29/24 15:23 Dose: 10 gm Documented By: Admin: 06/29/24 12:14 Dose: Not Given Documented By: Admin: 06/28/24 23:40 Dose: 10 gm Documented By: ADINA
--- NOTE | 2024-06-30 17:22 | Communication Note ---
Discussed plan of care with Mr. Grover at bedside. Explained his rather serious and critical condition, including his severe heart failure and concomitant ESRD with delicate electrolyte and fluid balance. Discussed that cardiology will discuss plan of care with him tonight. Also explained that if he leaves at this time it will be AMA as I cannot ensure a safe discharge (concern for arrythmia and sudden with new EF 15-20%) without a clear plan from cardiology in place. He verbalized that "I am being pushed around for other peoples agenda" but that he understands and that "cardiology has until 6 pm then I am leaving regardless." Date of Service: June 30, 2024
--- NOTE | 2024-06-30 18:42 | Nephrology Progress Note ---
Date of Service June 30, 2024 Assessment & Plan (1) ESRD (end stage renal disease) on dialysis: Plan: Did HD again today and he tolerated 3 L UF; got 2.5 L yesterday. Will give midodrine 10 mg prior to HD standing; BP remains low w/ new HF Next HD 07/02 as IP or OP depending on his dispo Would d/c on veltassa 8.4 gm Tues, Thurs, Sat if he goes home which is his inclination Care coordinated w/ Dr Toussaint via TText multiple times through the day re cardiac status, dispo, and timing of dialysis along w/ appropriate medications. we are in agreement. (2) Acute hyperkalemia: Plan: Anuric ESRD patient with DM--makes high K very persistent. Needs much more aggressive diet control. K better today (3) Ventricular bigeminy seen on surveillance monitor: Plan: NSR all day today (4) Hypotension: Plan: BP is low and has e/o fluid overload with Symptoms. midodrine 10 mg w/ HD and 2.5 mg tid otherwise Plan time spent 62 mins in total. Admission and Anticipated Discharge Date Admission Date: June 28, 2024 Subjective delayed note entered after 1630 eval. tolerated 3L UF today at HD. feels his breathing slightly improved after this but also has hardly moved; no chest pain or palpitations. leaning towards conservative measures but wants to hear what cardiology has to say about possiblities w/ tertiary transfer. NSR all night in 70s. Review of Systems 2 Review of Systems: All systems reviewed & are unremarkable except as noted in Subjective Physical Exam 2 Constitutional: well developed, well nourished, + obese and cooperative; no acute distress Eyes: EOM intact bilaterally ENMT: Ears: no external ear abnormality Nose: no external nose abnormality Mouth: + dry oral mucous membranes Neck: no nuchal rigidity Respiratory: normal respiratory effort Auscultation: + diminished lung sounds Cardiovascular: Rate/Rhythm: regular rate (distant) and regular rhythm E xtremities: + edema (3+) Gastrointestinal (Abdomen): Inspection/Auscultation: normal bowel sounds P ercussion/Palpation: abdomen soft; abdomen nontender Musculoskeletal: Extremities: strength 5/5 throughout Skin: no rashes, warm and dry (except broken skin w/ indurated pretibial edema) Neurologic: madera, fluent speech, no tremor Results & Data Vital Signs (Past 12 Hours) Vital Signs Temp Pulse Pulse Pulse Resp BP BP 06/30/24 15:19 36.8 C 81 18 107/70 06/30/24 13:20 36.6 C 68 122/56 L 06/30/24 13:00 81 117/71 06/30/24 12:30 85 108/54 L 06/30/24 12:00 80 114/59 L 06/30/24 11:30 79 108/65 06/30/24 11:00 80 101/62 06/30/24 10:30 86 93/47 L 06/30/24 10:00 81 126/79 06/30/24 09:30 80 127/76 06/30/24 09:16 78 132/51 L 06/30/24 09:11 36.5 C 62 06/30/24 08:04 36.3 C L 71 18 104/67 Pulse Ox O2 Del Method 06/30/24 15:19 95 Room Air 06/30/24 13:20 06/30/24 13:00 06/30/24 12:30 06/30/24 12:00 06/30/24 11:30 06/30/24 11:00 06/30/24 10:30 06/30/24 10:00 06/30/24 09:30 06/30/24 09:16 06/30/24 09:11 06/30/24 08:04 93 Room Air Laboratory Results 06/30/24 09:20 06/30/24 09:20 Diagnostic Findings TTE w/ new EF 15-20%, severe global LV hypokinesis; probable low flow low gradient severe (4) Hypotension Hypotension type: other hypotension type Qualified Code(s): I95.89 - Other hypotension
--- NOTE | 2024-07-01 09:31 | Cardiology Progress Note ---
Date of Service July 01, 2024 Assessment & Plan (1) Ischemic cardiomyopathy: (2) Ventricular bigeminy seen on telemetry monitor: (3) Elevated troponin: (4) Hyperkalemia: (5) ESRD (end stage renal disease) on dialysis: (6) Hypotension: Plan Assessment: 73 year old medically complex male presents with increased weakness and shortness of breath. missed HD treatment. Given history of CAD and elevated troponins, cardiology service has been requested for evaluation. Plan: 1. Hypertensive heart disease 2. CAD 3. Ischemic cardiomyopathy 4. Elevated troponin -patient with known coronary disease as outlined with prior high risk PCI. Concern for likely ischemia in the setting of ESRD, and other significant comorbidities. -Troponin elevation in the setting of volume overload, ESRD and prior infarct. Will obtain resting echocardiogram to assess overall structure and function. This is to be done upon returning from HD treatment today -Continue Atorvastatin, Toprol xl, and Plavix 5. Ventricular bigeminy -Noted on EKG And telemetry. -Important to complete Hemodialysis and normalize electrolyte imbalance in the setting of increased ventricular ectopy and a short SD interval. -monitor closely. -Continue Toprol xl 12.5mg PO BID at this time as blood pressures are borderline. -Echocardiogram 6. ESRD: - per management of nephrology, appreciate all recommendations. 7. Hypotension: -patient with complex history and currently only on low dose Toprol xl for history of HF and increased PVC burden -May use Midodrine if necessary for BP support. patient received a one time dose this AM by nephrology 06/30/2024: -patient's condition remains guarded. He verbalizes and understanding that he has a "really sick heart" -Continues with modest volume overload, currently on HD treatment. BP stable. -Dr. Toussaint had an at length discussion with patient with regards to his echocardiogram results, his prior cardiac history, multiple comorbidities and current symptoms. patient states that he would like to go home, but is willing to sit and talk with Dr. Toussaint about the plan of care. patient does verbalize an understanding that if he would choose to go home on his own account that he is at very high risk of having a sudden cardiac event including sudden cardiac . -Echocardiogram completed yesterday shows a severely reduced LVEF of 15-20%, severe global hypokinesis of the LV, Severe calcification of the aortic valve with at lease moderate stenosis; however findings suggest low flow, low gradient severe . No pericardial effusion, mild TR and mildly elevated pulmonary pressures. -Plan of care Goals discussion was held between patient and primary team, refer to note. -Patient is to continue Toprol xl 12.5mg PO BID, repeat EKG in AM given concerns or Prolonged QT interval, hyperkalemia and long 1st degree AVB. -Continue Plavix and Atorvastatin as part of GDMT -Continue Midodrine as part of recommendation for BP support. 07/01/2024: -Patient is out of bed in a chair today offering no acute concerns. Hospitalist team present as well as patient's son -Continues with modest volume overload although less symptomatic since yesterday's dialysis session. -Patient had an at length discuss with Dr. Toussaint and his son last night about test results, patient's comorbidities and the severity of his heart condition. Son as presented today to further discuss with patient what direction they wish to take in his plan of care. We reiterated our goals of care discussion. Patient's son will notify us today what their decision is on the next approach to care. -Patient is to continue Toprol xl 12.5mg PO BID. Repeat EKG continues to show prolonged SD but not worse, QTc with slight improvement -Continue Plavix and Atorvastatin as part of GDMT -Continue Midodrine as part of recommendation for BP support. Will continue to follow. Case has been discussed with Dr. Toussaint. Further recommendations regarding plan of care as per his assessment. I spent a total of 40 minutes on the date of service in preparation, delivery, documentation of the care provided to the patient excluding any time spent in the performance of separately billed services. STEPHIE Zheng [facility] Cardiology [facility] Admission and Anticipated Discharge Date Admission Date: June 28, 2024 Supervising Physician Co-Signing Physician Notes Attending attestation: Case reviewed with the advanced practitioner. I have personally performed a history and physical examination on the patient. I have reviewed the advanced practitioner's documentation on the date of service referenced in note, and I agree with, and take responsibility for the plan of care. The patient's son, Gerber, was available during my encounter with the patient today. His daughter and her 2 young children had also come to visit him but were not present during our discussion. At present, patient elects to not proceed with cardiac catheterization. He would like to remain in the hospital and have dialysis tomorrow. Gerber's children are going to come and see him. He is moving toward comfort care strategy. Jignesh Toussaint DO Subjective 07/01/2024:Patient seen and examined in follow up today. Feeling well. He is sitting out of bed in the chair. His son has just arrived. Patient is currently eating a sandwich and offers no acute cardiac complaints. Labs, vitals, diagnostics, telemetry and documentation reviewed. There are no Labs available for today. Telemetry reviewed showing SR with 1st degree AVB with PVCs. no acute events overnight. Repeat EKG this morning SR with 1st degree PAC/PVC SD interval 336ms Review of Systems Review of Systems: All systems reviewed & are unremarkable except as noted in HPI & below Physical Exam Constitutional: + morbidly obese; no acute distress Neck: normal visual inspection and trachea midline Respiratory: normal respiratory effort; no respiratory distress and no labored breathing Auscultation: + diminished lung sounds (diminished throughout); no crackles, no rales, no rhonchi and no wheezes Cardiovascular: Rate/Rhythm: regular rate and regular rhythm Heart Sounds: normal S1, normal S2 and + murmur (+2/6 systolic ) Vessels: dorsalis pedis pulses present; no JVD Extremities: + edema (+2 BLE) Skin: + erythema (bilateral lower extremities ) Psychiatric: A+Ox3, euthymic affect Results & Data Vital Signs (Past 12 Hours) Vital Signs Temp Pulse Pulse Resp BP Pulse Ox O2 Del Method 07/01/24 07:48 36.6 C 77 18 100/65 95 Room Air 07/01/24 03:33 36.3 C L 71 18 97/62 L 96 Room Air 06/30/24 23:23 36.7 C 64 16 91/50 L 93 Room Air 06/30/24 23:00 77 Laboratory Results Cardiac Enzymes 06/30/24 Range/Units 09:20 AST 17 (13-39) U/L CBC 06/30/24 Range/Units 09:20 WBC 7.93 (4.8-10.8) K/ul RBC 3.39 L (4.70-6.10) M/uL Hgb 11.0 L (14.0-18.0) g/dl Hct 32.8 L (42.0-52.0) % Plt Count 128 L (130-400) K/uL Comprehensive Metabolic Panel 06/30/24 Range/Units 09:20 Sodium 134 L (136-145) mmol/L Potassium 4.5 (3.5-5.1) mmol/L Chloride 97 L (98-107) mmol/L Carbon Dioxide 26 (21-32) mmol/L BUN 49 H D (6-23) mg/dl Creatinine 7.88 H* D (0.6-1.4) mg/dl Glucose 153 H (70-99(Fasting)) mg/dl Calcium 8.5 L (8.6-10.3) mg/dl AST 17 (13-39) U/L ALT 24 (7-52) U/L Alkaline Phosphatase 127 H (34-104) U/L Total Protein 7.0 (6.0-8.3) gm/dl Albumin 3.8 (3.4-5.0) gm/dl Intake and Output 06/30/24 07/01/24 07/01/24 22:59 06:59 14:59 Intake Total 240 / 600 120 / 600 Output Total Balance 239 / 599 120 / 599 Intake: Oral 240 / 600 120 / 600 Output: # Bowel Movements Other: # Unmeasured Voids 1 Weight 132.13 kg Weight Measurement Method Standing Scale Patient Weight 07/02/24 06:59 Weight 132.13 kg (6) Hypotension Hypotension type: other hypotension type Qualified Code(s): I95.89 - Other hypotension
--- NOTE | 2024-07-01 14:14 | Electrocardiogram Report ---
Test Reason : Blood Pressure : */* mmHG Vent. Rate : 70 BPM Atrial Rate : 70 BPM P-R Int : 336 ms QRS Dur : 146 ms QT Int : 450 ms P-R-T Axes : 52 -77 166 degrees QTcB Int : 486 ms Sinus rhythm with 1st degree A-V block with Premature atrial complexes with Aberrant conduction Left axis deviation Left anterior fascicular block Right bundle branch block Inferior infarct (cited on or before 23-Dec-2019) Anterolateral infarct , age undetermined Low voltage QRS Abnormal ECG When compared with ECG of 30-Jun-2024 05:33, No significant change Confirmed by Coty Tsang ([id number]) on 07/01/2024 2:14:09 PM Referred By: REFERRED SELF Confirmed By: Coty Tsang
--- NOTE | 2024-07-01 16:27 | Nephrology Progress Note ---
Date of Service July 01, 2024 Assessment & Plan (1) Goals of care, counseling/discussion: Plan: extended discussions today with both pt's son, with pt son and pt, and with primary service about path forward. he declines aggressive intervention such as at heart cath/evaluation of valve. given that, hospice is a reasonable option since he is unlikely to tolerate HD consistently as an outpatient and will likely be sent repeatedly to hospital for hemodynamic instability given new HF. he really dislikes spending time at healthcare settings particularly hospital but also HD - mostly wants to be home w/ family/friends. I explained to him that midodrine is not a magic bullet > does not automatically/consistently raise blood pressures and can be arrhythmogenic. will focus on HD in house tomorrow later in day (as clinical schedule permits) so he has time to visit w/ family w/o extreme fatigue; then evaluate for possible tx on Tuesday; plan after that to stop HD and transition to home hospice. pt, son in agreement with this plan; primary service aware. Care coordinated w/ Dr Dupont via TText multiple times through the day re cardiac status, hopsice dispo, medications, and timing of dialysis along w/ appropriate medications. we are in agreement. (2) ESRD (end stage renal disease) on dialysis: Plan: UF2.5 L on 06/29; 3 L on 06/30. Will give midodrine 10 mg prior to HD standing; BP remains low w/ new HF Next HD 07/02 as IP; no further OP HD planned as he's not likely to tolerate and is for conservative measures; orders in hgb 11 today > no indication for therapy on HD. (3) Hypotension: Plan: BP is low and has e/o fluid overload with Symptoms. midodrine 10 mg w/ HD and 2.5 mg tid otherwise at least while dialysis continues (4) Ventricular bigeminy seen on dining room helper: Plan: NSR all day again today (5) Acute hyperkalemia: Plan: Anuric ESRD patient with DM--makes high K very persistent. Needs much more aggressive diet control. K better today Admission and Anticipated Discharge Date Admission Date: June 28, 2024 Subjective extensive discussions between patient and family, patient and cardiology/primary service; remains on RA; breathing for now/ mostly at rest w/o issues; ongoing /marked BLE edema; he declines transfer to [facility]; he is leaning towards hospice Review of Systems 2 Review of Systems: All systems reviewed & are unremarkable except as noted in Subjective Physical Exam 2 Constitutional: well developed, well nourished, + obese and cooperative; no acute distress Eyes: EOM intact bilaterally ENMT: Ears: no external ear abnormality Nose: no external nose abnormality Mouth: + dry oral mucous membranes Neck: no nuchal rigidity Respiratory: normal respiratory effort Auscultation: + diminished lung sounds and + crackles (sonia R base) Cardiovascular: Rate/Rhythm: regular rate (distant) and regular rhythm E xtremities: + edema (3+) Gastrointestinal (Abdomen): Inspection/Auscultation: + abdomen distended and normal bowel sounds Percussion/Palpation: abdomen soft and + fluid wave; abdomen nontender Musculoskeletal: Extremities: strength 5/5 throughout Skin: no rashes, warm and dry (except broken skin w/ indurated pretibial edema) Neurologic: madera, fluent speech, no tremor Psychiatric: Orientation: alert and oriented x 3 Results & Data Vital Signs (Past 12 Hours) Vital Signs Temp Pulse Pulse Resp BP Pulse Ox O2 Del Method 07/01/24 15:37 36.7 C 76 18 92/55 L 93 Room Air 07/01/24 11:32 36.6 C 77 20 97/61 L 93 Room Air 07/01/24 09:43 71 07/01/24 09:36 Room Air 07/01/24 07:48 36.6 C 77 18 100/65 95 Room Air Laboratory Results 06/30/24 09:20 06/30/24 09:20 (3) Hypotension Hypotension type: other hypotension type Qualified Code(s): I95.89 - Other hypotension
--- NOTE | 2024-07-01 17:40 | Hospitalist Progress Note ---
Date of Service July 01, 2024 Assessment & Plan (1) Acute hyperkalemia: Plan: -improving with dialysis -2/2 missing dialysis -improved after dialysis (2) ESRD (end stage renal disease) on dialysis: Plan: -difficulty with managing fluid status -likely type 2 cardiorenal syndrome in setting of significant coronary disease, echo with EF of 15-20% with low flow severe aortic stenosis -concern that dialysis noncompliance has significantly worsened heart failure, while ESRD initially likely 2/2 coronary syndrome Plan: -see above -appreciate cardiology recs -appreciate nephro recs, likely another dialysis session tomorrow -see above, hospice referral will be placed tomorrow for [facility] hospice in line with patient wishes -dialysis session tomorrrow (3) Heart failure, systolic, with acute decompensation: Plan: -echo today shows EF of 15-20% with severe low flow aortic stenosis -likely part of cardiorenal syndrome Plan: -appreciate cardiology assistance -see above GOC discussion (4) Elevated troponin: Plan: -unlikely to be ACS, likely acute on chronic type 2 UT -echo reveals severe aortic stenosis low flow and new EF 15-20% (5) Ventricular bigeminy seen on game producer: Plan: -Appreciate cardiology evaluation as per above. -EKG with sinus tachycardia with first-degree AV block with frequent PVCs in a pattern of bigeminy, RBBB, peaked T waves and widened QRS. (6) Insulin dependent type 2 diabetes mellitus: Plan: -SSI regimen while inpatient. BSG checks ACHS. Plan I spent a total of 50 minutes in direct patient care, including [id number] time with the patient and/or family, reviewing medical records, ordering and reviewing diagnostic tests, and coordinating care with other healthcare providers. This time includes: history taking, physical examination, medical decision making, counseling, ECG interpretation, imaging interpretation, lab interpretation, orders, and education, excluding time spent in the performance of separately billed services. I spent a total of 30 minutes providing advanced care planning to the patient and/or family, including [id number] time discussing the patient's health status, prognosis, and treatment options. This time includes specific activities such as: discussing advance directives, goals of care, prognostication, and end-of-life planning. Admission and Anticipated Discharge Date Admission Date: June 28, 2024 Subjective Patient seen and examined at bedside several times throughout the day. Had extensive goals of care conversation with patient see below. Advanced Care Plannin minutes spent with patient discussing goals and values. Son also present. Discussed the patient's tenuous clinical situation, including advanced heart failure in setting of end-stage renal disease complicated by hypotension. Discussed that therapeutically the next steps would be transferring to a higher level of care for a ischemic evaluation and consideration of an aortic valve replacement, with hope that this will improve blood pressures and allow for continued dialysis. Patient states his goal is to have a good quality of life and he wants to be able to play cards with his friends. Discussed 2 paths of care. 1 pathic care involves full therapeutic workup including transfer, and cardiac optimization. Other path forward is a focus on comfort, quality of life. Discussed that pursuing further outpatient dialysis without correcting cardiac issues is not an option at this time as patient is barely able to tolerate dialysis and will likely not be able to lexii nue outpatient dialysis. Patient and son had extensive conversation over the next few hours, and talk to several specialist. After extensive discussion and evaluation, patient would like to receive dialysis here, with another day of dialysis after that, and signed up with hospice at home. He understands that he will not be able to continue on dialysis outpatient when he goes home at that time. He would like to focus on his quality of life. He states he does not want to return to the hospital. We discussed that I would have case management reach out to his son, who he designates as his point person for the hospice care, to engage hospice services. Patient asked this provider for recommendation of hospice providers in the area, this provider recommended [facility] or [facility] hospice given the extent of resources at their disposal. Prima choice was given to patient and son, patient states he would like to sign on with [facility] hospice. Review of Systems Review of Systems: CONSTITUTIONAL: Patient denies fevers, chills, sweats and weight changes. EYES: Patient denies any visual symptoms. EARS, NOSE, AND THROAT: No difficulties with hearing. No symptoms of rhinitis or sore throat. CARDIOVASCULAR: Patient denies chest pains, palpitations, orthopnea and paroxysmal nocturnal dyspnea. RESPIRATORY: No dyspnea on exertion, no wheezing or cough. GI: No nausea, vomiting, diarrhea, constipation, abdominal pain, hematochezia or melena. : No urinary hesitancy or dribbling. No nocturia or urinary frequency. No abnormal urethral discharge. MUSCULOSKELETAL: back pain NEUROLOGIC: No chronic headaches, no seizures. Patient denies numbness, tingling or weakness. PSYCHIATRIC: Patient denies problems with mood disturbance. No problems with anxiety. ENDOCRINE: No excessive urination or excessive thirst. DERMATOLOGIC: Patient denies any rashes or skin changes. Physical Exam Physical Exam: Gen: A&O 3 NAD, large body habitus HEENT: NCAT, EOMI, not icteric. External ears normal. No rhinorrhea. Moist mu cous membranes. Neck: Supple, full range of motion, no observable masses, No meningeal sign. Lungs: No Respiratory distress. CV: RRR, no edema. Abdomen: Soft, nondistended, No rebound tenderness. MSK: No joint swelling, no redness. Skin: No rashes, petechiae, lesions. Normal color per patient. Neuro: Normal Gait, Grossly intact. Psych: Appropriate for situation. Results & Data Results & Data Vital Signs (Past 12 Hours) Vital Signs Temp Pulse Pulse Resp BP Pulse Ox O2 Del Method 07/01/24 15:37 36.7 C 76 18 92/55 L 93 Room Air 07/01/24 11:32 36.6 C 77 20 97/61 L 93 Room Air 07/01/24 09:43 71 07/01/24 09:36 Room Air 07/01/24 07:48 36.6 C 77 18 100/65 95 Room Air Laboratory Results -patient did not want labs at this time Medications Administered Atorvastatin Calcium (Atorvastatin 40 Mg Tab) 80 mg PO QAM [facility] Stop: 07/29/24 08:59 Last Admin: 07/01/24 10:17 Dose: 80 mg Documented By: Admin: 06/30/24 08:41 Dose: 80 mg Documented By: Admin: 06/29/24 08:20 Dose: 80 mg Documented By: MARISA Calcium Acetate (Calcium Acetate 667 Mg Cap/Tab) 667 mg PO AC [facility] Stop: 07/28/24 17:59 Last Admin: 07/01/24 14:39 Dose: 667 mg Documented By: Admin: 07/01/24 10:17 Dose: 667 mg Documented By: Admin: 06/30/24 19:21 Dose: 667 mg Documented By: Admin: 06/30/24 14:47 Dose: Not Given Documented By: Admin: 06/30/24 08:42 Dose: 667 mg Documented By: Admin: 06/29/24 17:14 Dose: Not Given Documented By: Admin: 06/29/24 12:14 Dose: Not Given Documented By: Admin: 06/29/24 08:20 Dose: 667 mg Documented By: Admin: 06/28/24 18:49 Dose: 667 mg Documented By: CAROLIN Clopidogrel Bisulfate (Clopidogrel Bisulfate 75 Mg Tab) 75 mg PO QAM JAYA Stop: 07/29/24 08:59 Last Admin: 07/01/24 10:17 Dose: 75 mg Documented By: Admin: 06/30/24 08:41 Dose: 75 mg Documented By: Admin: 06/29/24 08:21 Dose: 75 mg Documented By: MARISA Heparin Sodium (Porcine) (Heparin Sod 5,000 Unit/0.5 Ml Vial) 7,500 units SQ Q8 JAYA Stop: 07/28/24 20:29 Last Admin: 07/01/24 14:47 Dose: Not Given Documented By: Admin: 07/01/24 08:19 Dose: Not Given Documented By: Admin: 06/30/24 21:16 Dose: Not Given Documented By: [facility] Admin: 06/30/24 16:53 Dose: Not Given Documented By: Admin: 06/30/24 07:04 Dose: Not Given Documented By: Admin: 06/29/24 22:29 Dose: Not Given Documented By: Admin: 06/29/24 13:06 Dose: Not Given Documented By: Admin: 06/29/24 08:22 Dose: Not Given Documented By: GPCm Admin: 06/28/24 21:11 Dose: 7,500 units Documented By: ADINA Insulin Aspart (Insulin Aspart Per Unit Charge) 0 units SC ACHS JAYA Stop: 07/28/24 17:51 Last Admin: 07/01/24 14:39 Dose: 4 units Documented By: DOV Co-signed By: BRADLEY Admin: 07/01/24 07:56 Dose: Not Given Documented By: Admin: 06/30/24 21:15 Dose: Not Given Documented By: Admin: 06/30/24 17:02 Dose: Not Given Documented By: Admin: 06/30/24 11:43 Dose: Not Given Documented By: Admin: 06/30/24 08:42 Dose: 8 units Documented By: BRADLEY Co-signed By: EMILE Admin: 06/29/24 21:59 Dose: Not Given Documented By: Admin: 06/29/24 17:14 Dose: 2 units Documented By: MARISA Co-signed By: CIARRA Admin: 06/29/24 14:12 Dose: 6 units Documented By: GPF Co-signed By: CIARRA Admin: 06/29/24 08:21 Dose: 8 units Documented By: GPF Co-signed By: CIARRA Admin: 06/28/24 21:14 Dose: 3 units Documented By: ADINA Co-signed By: RADHA Admin: 06/28/24 18:50 Dose: 3 units Documented By: CAROLIN Co-signed By: ADINA Insulin Glargine (Lantus Per Unit Charge) 0 units SC BID JAYA; Protocol Stop: 07/29/24 08:59 Last Admin: 07/01/24 10:17 Dose: 10 units Documented By: DOV Co-signed By: Admin: 06/30/24 21:30 Dose: 15 units Documented By: ADINA Co-signed By: MARIA A Admin: 06/30/24 08:42 Dose: 12 units Documented By: BRADLEY Co-signed By: EMILE Admin: 06/29/24 22:26 Dose: 15 units Documented By: ADINA Co-signed By: JOSÉ Admin: 06/29/24 08:21 Dose: 15 units Documented By: MARISA Co-signed By: CIARRA Metoprolol Succinate (Metoprolol Succ 25mg Ext Rel Tab) 12.5 mg PO BID JAYA Stop: 07/28/24 20:59 Last Admin: 07/01/24 10:18 Dose: 12.5 mg Documented By: Admin: 06/30/24 21:16 Dose: Not Given Documented By: Admin: 06/30/24 08:43 Dose: Not Given Documented By: Admin: 06/29/24 22:06 Dose: Not Given Documented By: Admin: 06/29/24 08:22 Dose: Not Given Documented By: Admin: 06/28/24 21:12 Dose: 12.5 mg Documented By: ADINA Midodrine (Midodrine Hcl 2.5 Mg Tab) 2.5 mg PO TID@0800,1200,1700 [facility] Stop: 07/29/24 16:59 Last Admin: 07/01/24 14:40 Dose: 2.5 mg Documented By: Admin: 07/01/24 10:17 Dose: 2.5 mg Documented By: Admin: 06/30/24 19:21 Dose: 2.5 mg Documented By: Admin: 06/30/24 14:47 Dose: Not Given Documented By: Admin: 06/30/24 08:41 Dose: 2.5 mg Documented By: Admin: 06/29/24 17:14 Dose: 2.5 mg Documented By: MARISA Sodium Zirconium Cyclosilicate (Sodium Zirconium Cyclosilicate 10 Gm Packet) 10 gm PO TID@1100,1500,2300 [facility] Last Admin: 06/29/24 22:38 Dose: 10 gm Documented By: Admin: 06/29/24 15:23 Dose: 10 gm Documented By: Admin: 06/29/24 12:14 Dose: Not Given Documented By: Admin: 06/28/24 23:40 Dose: 10 gm Documented By: ADINA
[2024-07-02] MEDS: MIDODRINE HCL 2.5 MG TAB PO STA (08:01)
[2024-07-02 10:03] LABS: Hematocrit (blood only) 32.5 % (42.0-52.0); Mean Corpuscular Hemoglobin 32.7 pg (25.0-34.0); Mean Corpuscular Hgb Conc 33.8 g/dL (32.0-36.0); Mean Corpuscular Volume 96.7 fL (80.0-100.0); Mean Platelet Volume 11.1 fL (9.4-12.4); Platelet Count 141 K/uL (130-400); RDW Coefficient of Variation 14.2 % (11.5-14.5); RDW Standard Deviation 49.7 fL (36.4-46.3); Red Blood Count 3.36 M/uL (4.70-6.10); White Blood Count 7.15 K/ul (4.8-10.8)
[2024-07-02 10:10] LABS: Albumin Globulin Ratio 1.1 (0.9-2); Albumin Level 3.8 gm/dl (3.4-5.0); BUN Creatinine Ratio 5.3 (10-20); Bilirubin,Total 0.6 mg/dl (0.2-1.0); Calcium 8.7 mg/dl (8.6-10.3); Creatinine Clr Calc Pharmacy 10.7 ml/min; Globulin 3.5 gm/dl (2.5-4.0); Potassium 4.3 mmol/L (3.5-5.1); Total Protein 7.3 gm/dl (6.0-8.3)
--- NOTE | 2024-07-02 10:45 | Pharmacy Report ---
Pharmacy Glycemic Short Note 2 - Date of Service July 02, 2024 - Glycemic Short BSG Results (Last 24 hours): 07/01/24 07/01/24 07/02/24 16:37 20:22 07:27 Glucose POC Glucose 198 H 193 H 245 H 07/02/24 09:06 Glucose 196 H POC Glucose OUTPATIENT ANTIDIABETIC REGIMEN: * Novolin R 30 units with meals A1c = 8.7% value unreliable due to hemodialysis ASSESSMENT: 07/02 * Jignesh received 43 units of insulin yesterday (30 were basal) * Fasting BSG this AM elevated, will continue with basal insulin scale until ideal regimen can be determined. * No changes to NovoLog at this time, no glycemic stressors noted at this time. 06/29 * Jignesh is a 73 yo T2DM with complex PMH. ESRD on HD. Presented to ED due to SOB and generalized weakness. * Patient takes bolus insulin only at home - regular insulin with meals. Started on basal + bolus regime on admission. * Glycemic stressors appear to be stable at this time. * Fasting BSG of 156 mg/dL is above goal. Will order Lantus dose per BSG scale until basal needs are better known. * Continue Novolog based on weight/stress 2. PLAN FOR INPATIENT GLYCEMIC CONTROL: * Hold outpatient oral diabetes medications * Basal insulin * Lantus 10-15-20 units SQ BID - see eMAR for BSG scale (20 units BID would be similar to home insulin use split 50/50 basal/bolus) * Bolus insulin * NovoLog per scale ACHS or Q6hrs while NPO * Goal Range: Low 110 mg/dL - High 160 mg/dL * Correction Factor: 20 mg/dL/unit * Nutritional / Prandial insulin per carb ratio of 1 unit per 7 grams CHO consumed
--- NOTE | 2024-07-02 16:49 | Hospitalist Progress Note ---
Date of Service July 02, 2024 Assessment & Plan (1) Acute hyperkalemia: Plan: -improving with dialysis -2/2 missing dialysis -improved after dialysis (2) ESRD (end stage renal disease) on dialysis: Plan: -difficulty with managing fluid status -likely type 2 cardiorenal syndrome in setting of significant coronary disease, echo with EF of 15-20% with low flow severe aortic stenosis -concern that dialysis noncompliance has significantly worsened heart failure, while ESRD initially likely 2/2 coronary syndrome Plan: -see above -appreciate cardiology recs -appreciate nephro recs -see above, hospice referral will be placed tomorrow for [facility] hospice in line with patient wishes -another dialysis session tomorrow (3) Heart failure, systolic, with acute decompensation: Plan: -echo today shows EF of 15-20% with severe low flow aortic stenosis -likely part of cardiorenal syndrome Plan: -appreciate cardiology assistance -see above GOC discussion (4) Elevated troponin: Plan: -unlikely to be ACS, likely acute on chronic type 2 KS -echo reveals severe aortic stenosis low flow and new EF 15-20% (5) Ventricular bigeminy seen on cardiac care nurse: Plan: -Appreciate cardiology evaluation as per above. -EKG with sinus tachycardia with first-degree AV block with frequent PVCs in a pattern of bigeminy, RBBB, peaked T waves and widened QRS. (6) Insulin dependent type 2 diabetes mellitus: Plan: -SSI regimen while inpatient. BSG checks ACHS. Plan I spent a total of 40 minutes in direct patient care, including [id number] time with the patient and/or family, reviewing medical records, ordering and reviewing diagnostic tests, and coordinating care with other healthcare providers. This time includes: history taking, physical examination, medical decision making, counseling, ECG interpretation, imaging interpretation, lab interpretation, orders, and education, excluding time spent in the performance of separately billed services. Admission and Anticipated Discharge Date Admission Date: June 28, 2024 Subjective Patient seen and examined at bedside. Patient doing well today. Enjoying time with grandkids. Review of Systems Review of Systems: CONSTITUTIONAL: Patient denies fevers, chills, sweats and weight changes. EYES: Patient denies any visual symptoms. EARS, NOSE, AND THROAT: No difficulties with hearing. No symptoms of rhinitis or sore throat. CARDIOVASCULAR: Patient denies chest pains, palpitations, orthopnea and paroxysmal nocturnal dyspnea. RESPIRATORY: No dyspnea on exertion, no wheezing or cough. GI: No nausea, vomiting, diarrhea, constipation, abdominal pain, hematochezia or melena. : No urinary hesitancy or dribbling. No nocturia or urinary frequency. No abnormal urethral discharge. MUSCULOSKELETAL: back pain NEUROLOGIC: No chronic headaches, no seizures. Patient denies numbness, tingling or weakness. PSYCHIATRIC: Patient denies problems with mood disturbance. No problems with anxiety. ENDOCRINE: No excessive urination or excessive thirst. DERMATOLOGIC: Patient denies any rashes or skin changes. Physical Exam Physical Exam: Gen: A&O 3 NAD, large body habitus HEENT: NCAT, EOMI, not icteric. External ears normal. No rhinorrhea. Moist mucous membranes. Neck: Supple, full range of motion, no observable masses, No meningeal sign. Lungs: No Respiratory distress. CV: RRR, no edema. Abdomen: Soft, nondistended, No rebound tenderness. MSK: No joint swelling, no redness. Skin: No rashes, petechiae, lesions. Normal color per patient. Neuro: Normal Gait, Grossly intact. Psych: Appropriate for situation. Results & Data Results & Data Vital Signs (Past 12 Hours) Vital Signs Temp Pulse Pulse Resp BP BP BP 07/02/24 13:00 36.5 C 78 149/56 H 07/02/24 12:30 79 86/39 L 07/02/24 12:00 76 99/65 L 07/02/24 11:30 75 122/75 07/02/24 11:00 72 115/70 07/02/24 10:30 73 100/67 07/02/24 10:00 75 103/60 07/02/24 09:30 78 99/65 L 07/02/24 09:00 78 118/78 07/02/24 08:56 77 120/75 07/02/24 08:49 36.7 C 77 07/02/24 07:43 36.4 C L 80 20 96/57 L Pulse Ox O2 Del Method 07/02/24 13:00 07/02/24 12:30 07/02/24 12:00 07/02/24 11:30 07/02/24 11:00 07/02/24 10:30 07/02/24 10:00 07/02/24 09:30 07/02/24 09:00 07/02/24 08:56 07/02/24 08:49 07/02/24 07:43 96 Room Air Laboratory Results -personally reviewed, creatinine around baseline, electrolytes have improved with dialysis Medications Administered Atorvastatin Calcium (Atorvastatin 40 Mg Tab) 80 mg PO QAM JAYA Stop: 07/29/24 08:59 Last Admin: 07/02/24 08:01 Dose: 80 mg Documented By: Admin: 07/01/24 10:17 Dose: 80 mg Documented By: Admin: 06/30/24 08:41 Dose: 80 mg Documented By: Admin: 06/29/24 08:20 Dose: 80 mg Documented By: MARISA Calcium Acetate (Calcium Acetate 667 Mg Cap/Tab) 667 mg PO AC [facility] Stop: 07/28/24 17:59 Last Admin: 07/02/24 14:40 Dose: Not Given Documented By: Admin: 07/02/24 08:01 Dose: 667 mg Documented By: Admin: 07/01/24 17:45 Dose: 667 mg Documented By: Admin: 07/01/24 14:39 Dose: 667 mg Documented By: Admin: 07/01/24 10:17 Dose: 667 mg Documented By: Admin: 06/30/24 19:21 Dose: 667 mg Documented By: Admin: 06/30/24 14:47 Dose: Not Given Documented By: Admin: 06/30/24 08:42 Dose: 667 mg Documented By: Admin: 06/29/24 17:14 Dose: Not Given Documented By: Admin: 06/29/24 12:14 Dose: Not Given Documented By: Admin: 06/29/24 08:20 Dose: 667 mg Documented By: Admin: 06/28/24 18:49 Dose: 667 mg Documented By: CAROLIN Clopidogrel Bisulfate (Clopidogrel Bisulfate 75 Mg Tab) 75 mg PO QAM JAYA Stop: 07/29/24 08:59 Last Admin: 07/02/24 08:01 Dose: 75 mg Documented By: Admin: 07/01/24 10:17 Dose: 75 mg Documented By: Admin: 06/30/24 08:41 Dose: 75 mg Documented By: Admin: 06/29/24 08:21 Dose: 75 mg Documented By: GPF Heparin Sodium (Porcine) (Heparin Sod 5,000 Unit/0.5 Ml Vial) 7,500 units SQ Q8 JAYA Stop: 07/28/24 20:29 Last Admin: 07/02/24 14:41 Dose: Not Given Documented By: Admin: 07/02/24 05:42 Dose: Not Given Documented By: [facility] Admin: 07/01/24 22:11 Dose: Not Given Documented By: [facility] Admin: 07/01/24 14:47 Dose: Not Given Documented By: Admin: 07/01/24 08:19 Dose: Not Given Documented By: Admin: 06/30/24 21:16 Dose: Not Given Documented By: Admin: 06/30/24 16:53 Dose: Not Given Documented By: Admin: 06/30/24 07:04 Dose: Not Given Documented By: Admin: 06/29/24 22:29 Dose: Not Given Documented By: Admin: 06/29/24 13:06 Dose: Not Given Documented By: Admin: 06/29/24 08:22 Dose: Not Given Documented By: Admin: 06/28/24 21:11 Dose: 7,500 units Documented By: HD Insulin Aspart (Insulin Aspart Per Unit Charge) 0 units SC ACHS JAYA Stop: 07/28/24 17:51 Last Admin: 07/02/24 14:40 Dose: Not Given Documented By: Admin: 07/02/24 08:02 Dose: 11 units Documented By: BRADLEY Co-signed By: KYRA Admin: 07/01/24 20:35 Dose: 2 units Documented By: KASANDRA Co-signed By: GENE Admin: 07/01/24 17:45 Dose: 7 units Documented By: DOV Co-signed By: BRADLEY Admin: 07/01/24 14:39 Dose: 4 units Documented By: DOV Co-signed By: BRADLEY Admin: 07/01/24 07:56 Dose: Not Given Documented By: Admin: 06/30/24 21:15 Dose: Not Given Documented By: Admin: 06/30/24 17:02 Dose: Not Given Documented By: Admin: 06/30/24 11:43 Dose: Not Given Documented By: Admin: 06/30/24 08:42 Dose: 8 units Documented By: BRADLEY Co-signed By: EMILE Admin: 06/29/24 21:59 Dose: Not Given Documented By: Admin: 06/29/24 17:14 Dose: 2 units Documented By: GPF Co-signed By: CIARRA Admin: 06/29/24 14:12 Dose: 6 units Documented By: GPF Co-signed By: CIARRA Admin: 06/29/24 08:21 Dose: 8 units Documented By: GPF Co-signed By: CIARRA Admin: 06/28/24 21:14 Dose: 3 units Documented By: ADINA Co-signed By: RADHA Admin: 06/28/24 18:50 Dose: 3 units Documented By: CAROLIN Co-signed By: ADINA Insulin Glargine (Lantus Per Unit Charge) 0 units SC BID JAYA; Protocol Stop: 07/29/24 08:59 Last Admin: 07/02/24 08:02 Dose: 20 units Documented By: BRADLEY Co-signed By: KYRA Admin: 07/01/24 20:36 Dose: 20 units Documented By: KASANDRA Co-signed By: GENE Admin: 07/01/24 10:17 Dose: 10 units Documented By: DOV Co-signed By: Admin: 06/30/24 21:30 Dose: 15 units Documented By: DAINA Co-signed By: MARIA A Admin: 06/30/24 08:42 Dose: 12 units Documented By: BRADLEY Co-signed By: EMILE Admin: 06/29/24 22:26 Dose: 15 units Documented By: ADINA Co-signed By: JOSÉ Admin: 06/29/24 08:21 Dose: 15 units Documented By: MARISA Co-signed By: CIARRA Metoprolol Succinate (Metoprolol Succ 25mg Ext Rel Tab) 12.5 mg PO BID JAYA Stop: 07/28/24 20:59 Last Admin: 07/02/24 08:03 Dose: Not Given Documented By: Admin: 07/01/24 20:45 Dose: 12.5 mg Documented By: Admin: 07/01/24 10:18 Dose: 12.5 mg Documented By: Admin: 06/30/24 21:16 Dose: Not Given Documented By: Admin: 06/30/24 08:43 Dose: Not Given Documented By: Admin: 06/29/24 22:06 Dose: Not Given Documented By: Admin: 06/29/24 08:22 Dose: Not Given Documented By: Admin: 06/28/24 21:12 Dose: 12.5 mg Documented By: MICHAEL Midodrine (Midodrine Hcl 2.5 Mg Tab) 2.5 mg PO TID@0800,1200,1700 [facility] Stop: 07/29/24 16:59 Last Admin: 07/02/24 14:41 Dose: Not Given Documented By: Admin: 07/02/24 08:01 Dose: 2.5 mg Documented By: Admin: 07/01/24 17:45 Dose: 2.5 mg Documented By: Admin: 07/01/24 14:40 Dose: 2.5 mg Documented By: Admin: 07/01/24 10:17 Dose: 2.5 mg Documented By: Admin: 06/30/24 19:21 Dose: 2.5 mg Documented By: Admin: 06/30/24 14:47 Dose: Not Given Documented By: Admin: 06/30/24 08:41 Dose: 2.5 mg Documented By: Admin: 06/29/24 17:14 Dose: 2.5 mg Documented By: MARISA Sodium Zirconium Cyclosilicate (Sodium Zirconium Cyclosilicate 10 Gm Packet) 10 gm PO TID@1100,1500,2300 [facility] Last Admin: 06/29/24 22:38 Dose: 10 gm Documented By: Admin: 06/29/24 15:23 Dose: 10 gm Documented By: Admin: 06/29/24 12:14 Dose: Not Given Documented By: Admin: 06/28/24 23:40 Dose: 10 gm Documented By: [facility]
[2024-07-03 07:52] VITALS: RESP 18
--- NOTE | 2024-07-03 12:42 | Cardiology Progress Note ---
Date of Service July 03, 2024 Assessment & Plan (1) Ischemic cardiomyopathy: (2) Severe aortic stenosis: (3) Elevated troponin: (4) Ventricular bigeminy seen on personnel monitor: (5) ESRD (end stage renal disease) on dialysis: Plan 73-year-old male with severe LV systolic dysfunction, possible severe aortic valve stenosis, and ongoing chronic heart failure with reduced ejection fraction. History of prior complex PCI, left main stenting in 2019. Volume status improved with hemodialysis. Initially patient had opted for hospice care and discontinuation of dialysis, however, he has decided to pursue further ischemic evaluation and hemodynamic assessment of aortic stenosis. Agreeable to transfer to [facility] in [place]. Continue current medications including clopidogrel, atorvastatin, Toprol XL, and midodrine as ordered. I spent a total of 60 minutes on the date of service in preparation, delivery, and documentation of the care provided to this patient, excluding any time spent in the performance of separately billed services. Sina Babin DO, [facility] Admission and Anticipated Discharge Date Admission Date: June 28, 2024 Subjective Patient seen and examined at the bedside. Patient discussed his plans and concerns with family over the weekend. Now has decided to pursue further ischemic evaluation, treatment of underlying coronary disease, and repeat cardiac catheterization at [facility] in [place]. Denies any chest pain or shortness of breath today. Approximately 3 kg fluid removed on most recent hemodialysis treatment. Tolerating midodrine. Review of Systems Review of Systems: All systems reviewed & are unremarkable except as noted in Subjective Physical Exam Constitutional: well nourished, + ill appearing and + obese Respiratory: no respiratory distress and no labored breathing Auscultation: + rales (Scant rales at the bases bilateral.); no wheezes Cardiovascular: Rate/Rhythm: regular rate and regular rhythm Heart Sounds: normal S1, normal S2 and + murmur (2/6 systolic ejection murmur) Extremities: + edema (2+ bilateral pedal and ankle edema with stasis changes) Gastrointestinal (Abdomen): Inspection/Auscultation: normal bowel sounds; abdomen not distended Percussion/Palpation: abdomen soft; abdomen nontender, no guarding and abdomen not rigid Neurologic: CN's II-XI intact bilaterally and moves all extremities Results & Data Vital Signs (Past 12 Hours) Vital Signs Temp Pulse Pulse Pulse Resp BP Pulse Ox 07/03/24 11:14 36.3 C L 77 18 126/78 97 07/03/24 07:58 07/03/24 07:50 36.4 C L 74 18 105/66 97 07/03/24 07:12 70 07/03/24 03:32 36.4 C L 75 16 104/56 L 96 O2 Del Method 07/03/24 11:14 Room Air 07/03/24 07:58 Room Air 07/03/24 07:50 Room Air 07/03/24 07:12 07/03/24 03:32 Room Air Laboratory Results Intake and Output 07/02/24 07/03/24 07/03/24 22:59 06:59 14:59 Intake Total 250 / 250 Output Total Balance - 250 / 249 Intake: Oral 250 / 250 Output: # Bowel Movements Other: # Unmeasured Voids 1 Weight 133.8 kg 131.5 kg Weight Measurement Method Standing Scale Standing Scale Patient Weight 07/04/24 06:59 Weight 131.5 kg
--- NOTE | 2024-07-03 13:51 | Nephrology Progress Note ---
Date of Service July 03, 2024 Assessment & Plan Admission and Anticipated Discharge Date Admission Date: June 28, 2024 Subjective Assessment & Plan (1) Goals of care, counseling/discussion: Plan: extended discussions today with both pt's son, with pt son and pt, and with primary service about path forward. he declines aggressive intervention such as at heart cath/evaluation of valve. given that, hospice is a reasonable option since he is unlikely to tolerate HD consistently as an outpatient and will likely be sent repeatedly to hospital for hemodynamic instability given new HF. he really dislikes spending time at healthcare settings particularly hospital but also HD - mostly wants to be home w/ family/friends. (2) ESRD (end stage renal disease) on dialysis: Plan: UF2.5 L on 06/29; 3 L on 06/30. 2.5 liters on 07/02. Will give midodrine 10 mg prior to HD standing; BP remains low w/ new HF Next HD 07/04 as IP if he is not transferred till then to [facility] [place]. will write orders for tomorrow with goal of 2.5 UF and with midodrine pre HD He thought of doing Hospice but now decided to be checked at [facility]. Transfer process has been started. Plan discussed with primary service + cards by tiger text as well as in person. reviewed cards note (3) Hypotension: Plan: BP is low and has e/o fluid overload with Symptoms. midodrine 10 mg w/ HD and 2.5 mg tid otherwise at least while dialysis continues (4) Ventricular bigeminy seen on monitoring and evaluation advisor: Plan: NSR all day again today (5) Acute hyperkalemia: Plan: Anuric ESRD patient with DM--makes high K very persistent. Needs much more aggressive diet control. K better today Subjective he had dialysis yesterday and total 2.5 liters removed without major crisis. He thought of doing Hospice but now decided to be checked at [facility]. Transfer process has been started. Feels about baseline currently. Review of Systems Review of Systems: All systems reviewed & are unremarkable except as noted in Subjective Physical Exam Constitutional: well developed, well nourished, + obese and cooperative; no acute distress Eyes: EOM intact bilaterally ENMT: Ears: no external ear abnormality Nose: no external nose abnormality Mouth: + dry oral mucous membranes Neck: no nuchal rigidity Respiratory: normal respiratory effort Auscultation: + diminished lung sounds and + crackles (sonia R base) Cardiovascular: Rate/Rhythm: regular rate (distant) and regular rhythm Extremities: + edema (3+) Gastrointestinal (Abdomen): Inspection/Auscultation: + abdomen distended and normal bowel sounds Percussion/Palpation: abdomen soft and + fluid wave; abdomen nontender Musculoskeletal: Extremities: strength 5/5 throughout Skin: no rashes, warm and dry (except broken skin w/ indurated pretibial edema) Neurologic: mad[place], fluent speech, no tremor Psychiatric: Orientation: alert and oriented x 3 Results & Data Vital Signs (Past 12 Hours) Vital Signs Temp Pulse Pulse Pulse Resp BP Pulse Ox 07/03/24 11:14 36.3 C L 77 18 126/78 97 07/03/24 07:58 07/03/24 07:50 36.4 C L 74 18 105/66 97 07/03/24 07:12 70 07/03/24 03:32 36.4 C L 75 16 104/56 L 96 O2 Del Method 07/03/24 11:14 Room Air 07/03/24 07:58 Room Air 07/03/24 07:50 Room Air 07/03/24 07:12 07/03/24 03:32 Room Air
[2024-07-03 16:10] VITALS: BP 105/70; PULSE 64; TEMP 97.5; O2SAT 95
--- NOTE | 2024-07-03 19:56 | Discharge Summary ---
Discharge Summary Date of Service July 03, 2024 Principal Dx & Hospital Course #1 = Principal Diagnosis (1) Acute hyperkalemia: -improving with dialysis -2/2 missing dialysis -improved after dialysis (2) ESRD (end stage renal disease) on dialysis: -difficulty with managing fluid status -likely type 2 cardiorenal syndrome in setting of significant coronary disease, echo with EF of 15-20% with low flow severe aortic stenosis -concern that dialysis noncompliance has significantly worsened heart failure, while ESRD initially likely 2/2 coronary syndrome Plan: -see above -appreciate cardiology recs -appreciate nephro recs -see above, transfer to [facility] for ischemic cardiac evaluation (3) Heart failure, systolic, with acute decompensation: -echo today shows EF of 15-20% with severe low flow aortic stenosis -likely part of cardiorenal syndrome Plan: -appreciate cardiology assistance (4) Elevated troponin: -unlikely to be ACS, likely acute on chronic type 2 [place] -echo reveals severe aortic stenosis low flow and new EF 15-20% (5) Ventricular bigeminy seen on public area attendant: -Appreciate cardiology evaluation as per above. -EKG with sinus tachycardia with first-degree AV block with frequent PVCs in a pattern of bigeminy, RBBB, peaked T waves and widened QRS. (6) Insulin dependent type 2 diabetes mellitus: -SSI regimen while inpatient. BSG checks ACHS. Notes For Next Care Provider Jignesh Grover III is a medically complex 73y/o M with PMHx significant for insulin- dependent DM type II, proliferative diabetic retinopathy of right eye without macular edema associated with DM type II, right vitreous hemorrhage, diabetic neuropathy leading to unsteady gait, HLD, HTN, cerebrovascular disease, history of prior CVA in 2013, ESRD on HD M/W/F, CAD s/p high-risk PCI with JOAO placement to the circumflex/proximal LAD/mid LAD with a INFECTION PREVENTION PRACTITIONER of the RCA, chronic combined systolic and diastolic congestive heart failure, ischemic cardiomyopathy, history of NSTEMI, bifascicular bundle branch block, morbid obesity, right cubital tunnel syndrome, chronic pain due to nerve impingement, venous stasis dermatitis of bilateral lower extremities, chronic acquired lymphedema, anemia and depression who presented to the ED with complaint of SOB and generalized weakness. On medicine, dialysis for hyperkalemia with improvement. Echo revealed EF 15-20% with low flow severe aortic stenosis. Initial GOC discussion patient wanted to focus on comfort but changed mind later in hospitalization. On 07/03/2024 transferred for ischemic and aortic stenosis evaluation at higher level of care. Medication Changes From Visit -midodrine Admission HPI Per Admitting Provider Jignesh Grover III is a medically complex 73y/o M with PMHx significant for insulin-dependent DM type II, proliferative diabetic retinopathy of right eye without macular edema associated with DM type II, right vitreous hemorrhage, diabetic neuropathy leading to unsteady gait, HLD, HTN, cerebrovascular disease, history of prior CVA in 2013, ESRD on HD M/W/, CAD s/p high-risk PCI with JOAO placement to the circumflex/proximal LAD/mid LAD with a INFECTION PREVENTION PRACTITIONER of the RCA, chronic combined systolic and diastolic congestive heart failure, ischemic cardiomyopathy, history of NSTEMI, bifascicular bundle branch block, morbid obesity, right cubital tunnel syndrome, chronic pain due to nerve impingement, venous stasis dermatitis of bilateral lower extremities, chronic acquired lymphedema, anemia and depression who presented to the ED with complaint of SOB and generalized weakness. History obtained from the patient, discussion with ED provider and associated chart review. Patient recently admitted under our service from 06/25/2024 to 06/26/2024. Found to be hyperkalemic at that time with potassium of 6.3 and initially refused HD despite a climbing potassium level and persistent EKG changes. There was initial concern that the patient would leave AMA however he was then later agreeable to undergo HD on 06/26/2024. He was given midodrine to help with his blood pressure and no volume was removed during the HD session at that time. Last full dialysis session with fluid removal was on 06/22/2024 (total volume removed unknown). Usual HD schedule is M/W/ - gets done at [facility]. Was to have routine HD session yesterday however did not attend this as he states he was unaware of the appointment. Patient with prominent history of medical noncompliance. Still makes about 150cc of urine/day. Endorses not taking his metoprolol succinate since 06/26/2024 - this was stopped due to bradycardia and telemetry monitoring showing frequent PVCs in a bigeminy pattern during his previous admission. Notes his HR was in the 40s earlier today. Was not lightheaded or dizzy when this occurred however did feel slightly nauseous but no episodes of vomiting. HR improved the ED. Reports feeling overall pretty weak and easily fatigued with minimal exertion. Also with some increased SOB with exertion beginning this morning. Endorses he cannot walk even a few steps without getting winded. BP remains on the softer side. Initial laboratory evaluation remarkable for potassium of 6.3 and creatinine of 10.21. Initial troponin 512.1, repeat troponin 458.9; EKG with sinus tachycardia with first-degree AV block with frequent PVCs in a pattern of bigeminy, RBBB, peaked T waves and widened QRS. S/p albuterol nebulizer treatment, insulin plus D5, calcium gluconate and Lokelma in the ED. Repeat potassium improved to 5.7 with these measures. Case discussed with Dr. Johnson over the phone this afternoon. Will plan for HD session tomorrow in order to get the patient back on his normal M/W/F schedule. Discharge Exam Gen: A&O 3 NAD, large body habitus HEENT: NCAT, EOMI, not icteric. External ears normal. No rhinorrhea. Moist mucous membranes. Neck: Supple, full range of motion, no observable masses, No meningeal sign. Lungs: No Respiratory distress. CV: RRR, no edema. Abdomen: Soft, nondistended, No rebound tenderness. MSK: No joint swelling, no redness. Skin: No rashes, petechiae, lesions. Normal color per patient. Neuro: Normal Gait, Grossly intact. Psych: Appropriate for situation. Updated Medication List Medication Instructions Recorded Confirmed Type atorvastatin 80 mg tablet 80 mg PO [facility] 06/17/21 06/28/24 History clopidogrel 75 mg tablet 75 mg PO [facility] 06/17/21 06/28/24 History oxycodone 5 mg tablet 10 mg PO HS PRN Pain, Severe 12/01/21 06/28/24 History insulin regular human 100 unit/mL 30 unit subcut AC 12/31/21 06/28/24 History injection solution (Novolin R Regular U-100 Insulin) calcium acetate(phosphat bind) 667 667 mg PO AC 06/25/24 06/28/24 History mg tablet gabapentin 300 mg capsule 300 mg PO DAILY PRN Pain in feet 06/25/24 06/28/24 History metoprolol succinate 25 mg 12.5 mg PO [facility] 06/25/24 06/28/24 History tablet,extended release 24 hr midodrine 2.5 mg tablet 2.5 mg PO TID@0800,1200,1700 #30 07/03/24 Rx tabs Hospital Stay Data Consultations 06/28/24 15:01 ED Decision to Admit Stat 06/28/24 15:44 Consult Nephrology Routine 06/28/24 19:39 Consult Cardiology Routine Pending Results Patient Have Any Pending Studies at Discharge: No Discharge Instructions Given to Patient (Per Discharging Provider) 1. Transfer to [facility]. Total Time Total Time Spent Total Time Spent (In Minutes): I spent a total of 35 minutes in direct patient care, including [id number] time with the patient and/or family, reviewing medical records, ordering and reviewing diagnostic tests, and coordinating care with other healthcare providers. This time includes: history taking, physical examination, medical decision making, counseling, ECG interpretation, imaging interpretation, lab i nterpretation, orders, and education, excluding time spent in the performance of separately billed services.
[2024-07-04] MEDS ORDERED: EPOETIN ALFA 4,000 UNIT/ML VIAL IV ONE (07:00)
[2024-07-04] MEDS ORDERED: SODIUM CHLORIDE 0.9% 1,000 ML IV PRN (07:00)
== END 2024-07-03 16:20 | disposition short-term general hospital (02) | DRG 640 ==
LOC: ED 13:39 → SUATTDRO 15:58 → 2S 15:58